=== PATIENT | female | born 1930 | race Caucasian/White ===

== ENCOUNTER 2016-10-31 08:15 | Inpatient (IN) | payer OTHER ==
[2016-10-31] VITALS (15 sets, daily range): BP systolic 105–135; BP diastolic 37–73; PULSE 62–141; TEMP 36.5–37; O2SAT 93–100; BMI 20.7
[~2016-10-31] VITALS: Ht 160 cm; Wt 53.3 kg
[~2016-10-31 08:15] MED LIST: AMLO-114 PO; ASPI1CHW12 PO; CLC100 PO; CYAN100048 PO; FRRG PO; INSUINJ4 SQ; LEVO112T2 PO; LSN40 PO; NVLGIPEN SC; TNR25 PO; ZNTT/150 PO
[2016-10-31] MEDS ORDERED: INSDGIPEN SC (08:36)
[2016-10-31] MEDS ORDERED: SODIUM CHLORIDE 0.9% 1000ML 2,000 ML IV ONE (08:45)
--- NOTE | 2016-10-31 08:59 | EMERGENCY ROOM VISIT NOTE ---
History Report prepared by Ermias: Anton Payne Under the Supervision of: Dr. Jace Duran M.D. First contact with patient: 08:33 Chief Complaint: ILLNESS Stated Complaint: LETHARGIC/ TIRED History of Present Illness The patient is an 86 year old female who presents to the Emergency Room with complaints of a worsening illness that started 4 days ago. Per the nursing staff , the patient's blood sugar is reading high. Per the patient's family, the patient started getting hoarse in her throat 4 days ago, which was accompanied with a lack of appetite, extreme thirst, lethargy, and chills. The patient does live alone. The patient has not been taking any insulin over the past few days because she has not been eating anything. She denies shortness of breath, fevers , chest pain, or nausea. Per the patient's family, the patient did have an episode of fecal incontinence yesterday. She is now using a Depend underwear. Source of History: patient, family, nursing staff Onset: 4 days ago Position: other (global - illness) Timing: worsening Associated Symptoms: + chills, + fatigue, No SOB, No chest pain, No nausea Note: Associated symptoms: Hoarse throat, lack of appetite, extreme thirst, an episode of fecal incontinence yesterday. Review of Systems All systems have been listed, reviewed, and are negative other than those previously mentioned. Please see Additional Medical History Sheet. Past Medical & Surgical Medical Problems: (1) Diabetes (2) HTN (hypertension) (3) Macular degeneration Family History Diabetes mellitus Hypertension Social History Smoking Status: Unknown if Ever Smoked Alcohol Use: none Drug Use: none Occupation Status: retired Current/Historical Medications Scheduled Amlodipine (Norvasc), 10 MG PO DAILY Aspirin (Aspirin 81 Low Dose), 81 MG PO DAILY Atenolol (Atenolol), 25 MG PO BID Cholecalciferol (Vitamin D-3), 1,000 UNITS PO DAILY Cranberry (Vaccinium Macrocarp (Cranberry), 500 MG PO DAILY Cyanocobalamin (Vitamin B-12), 1,000 MCG PO DAILY Ferrous Gluconate (Ferrous Gluconate), 324 MG PO BIDM Insulin Aspart (Novolog Flexpen), 4-6 UNITS SC TIDM Insulin Glargine (Lantus Solostar), 7-8 SC QPM Levothyroxine Sodium (Levothyroxine Sodium), 1 TAB PO DAILY Lisinopril (Lisinopril), 40 MG PO DAILY Multiple Vitamins W/ Minerals (Preservision Areds 2), 1 CAP PO DAILY Ranitidine (Zantac), 150 MG PO BID Allergies Coded Allergies: No Known Allergies (Unverified , 10/31/16) Physical Exam Vital Signs Date Time Temp Pulse Resp B/P Pulse Ox O2 Delivery O2 Flow Rate FiO2 10/31/16 11:15 72 28 87/49 99 Nasal Cannula 2.0 10/31/16 11:15 69 10/31/16 11:05 74 24 108/35 98 Room Air 10/31/16 10:59 71 18 91/40 98 Room Air 10/31/16 10:49 72 24 84/35 99 Nasal Cannula 2.0 10/31/16 10:41 75 24 104/40 99 Nasal Cannula 2.0 10/31/16 10:39 97 Nasal Cannula 2.0 10/31/16 10:37 78 24 116/50 99 Nasal Cannula 2.0 10/31/16 10:30 93 Room Air 10/31/16 10:20 73 24 123/53 99 Room Air 10/31/16 09:59 71 18 137/69 99 Room Air 10/31/16 09:31 70 20 132/67 98 Room Air 10/31/16 08:47 68 20 121/63 100 Room Air 10/31/16 08:23 99 Room Air 10/31/16 08:22 36.9 89 20 142/64 99 Room Air 10/31/16 08:19 66 Physical Exam GENERAL: Patient awake, alert, oriented x 3. Patient follows commands. Patient does not appear toxic. Patient is adequately hydrated and well- nourished. SKIN: No erythema, pallor, cyanosis or rash HEENT: Normal head, pupils equal, reactive to light and accommodation. Ears normal. Oral cavity and posterior pharynx appear normal. Mucous membranes dry. Neck: Without adenopathy, no neck vein distention. LUNGS: Clear to auscultation. No wheezes, no rales, no rhonchi. HEART: No murmurs. No gallops. No rubs ABDOMEN: No masses, no rebound, no hepatomegaly or splenomegaly. EXTREMITIES: No signs of trauma. No pedal or pretibial edema. No calf or thigh tenderness. NEUROLOGIC: Cranial nerves II-XII within normal limits. No gross motor sensory function deficits. Medical Decision & Procedures ER Provider Diagnostic Interpretation: X ray results are stated below per my interpretation and the radiologist's interpretation. CHEST ONE VIEW PORTABLE HISTORY: Lethargic. DKA COMPARISON: Chest 06/11/2015. FINDINGS: The lungs are clear. Cardiac silhouette is top normal in size. No pleural effusions. No pneumothorax. IMPRESSION: No significant change compared to the prior study. No acute process. Electronically signed by: Hardeep Ortez M.D. 10/31/2016 9:11 AM Dictated Date/Time: 10/31/2016 9:09 AM Laboratory Results 10/31/16 08:40 Red Blood Count 4.43, Mean Corpuscular Volume 91.2, Mean Corpuscular Hemoglobin 30.5, Mean Corpuscular Hemoglobin Concent 33.4, Mean Platelet Volume 10.7, Neutrophils (%) (Auto) 89.3, Lymphocytes (%) (Auto) 6.7, Monocytes (%) (Auto) 3.7, Eosinophils (%) (Auto) 0.0, Basophils (%) (Auto) 0.0, Neutrophils # (Auto) 10.73, Lymphocytes # (Auto) 0.81, Monocytes # (Auto) 0.45, Eosinophils # (Auto) 0.00, Basophils # (Auto) 0.00 Test 10/31/16 08:40 10/31/16 08:51 10/31/16 09:22 10/31/16 09:26 White Blood Count 12.03 K/uL (4.8-10.8) Red Blood Count 4.43 M/uL (4.2-5.4) Hemoglobin 13.5 g/dL (12.0-16.0) Hematocrit 40.4 % (37-47) Mean Corpuscular Volume 91.2 fL (80-100) Mean Corpuscular Hemoglobin 30.5 pg (25-34) Mean Corpuscular Hemoglobin Concent 33.4 g/dl (32-36) Platelet Count 235 K/uL (130-400) Mean Platelet Volume 10.7 fL (7.4-10.4) Neutrophils (%) (Auto) 89.3 % Lymphocytes (%) (Auto) 6.7 % Monocytes (%) (Auto) 3.7 % Eosinophils (%) (Auto) 0.0 % Basophils (%) (Auto) 0.0 % Neutrophils # (Auto) 10.73 K/uL (1.4-6.5) Lymphocytes # (Auto) 0.81 K/uL (1.2-3.4) Monocytes # (Auto) 0.45 K/uL (0.11-0.59) Eosinophils # (Auto) 0.00 K/uL (0-0.5) Basophils # (Auto) 0.00 K/uL (0-0.2) RDW Standard Deviation 45.6 fL (36.4-46.3) RDW Coefficient of Variation 13.7 % (11.5-14.5) Immature Granulocyte % (Auto) 0.3 % Immature Granulocyte # (Auto) 0.04 K/uL (0.00-0.02) Anisocytosis PRESENT Echinocytes 1+ Total Bilirubin 0.9 mg/dl (0.2-1) Aspartate Amino Transf (AST/SGOT) 30 U/L (15-37) Alanine Aminotransferase (ALT/SGPT) 25 U/L (12-78) Alkaline Phosphatase 133 U/L (45-117) Total Protein 7.9 gm/dl (6.4-8.2) Albumin 3.8 gm/dl (3.4-5.0) Globulin 4.1 gm/dl (2.5-4.0) Albumin/Globulin Ratio 0.9 (0.9-2) Prothrombin Time 10.1 SECONDS (9.0-12.0) Prothromb Time International Ratio 0.9 (0.9-1.1) Activated Partial Thromboplast Time 27.8 SECONDS (21.0-31.0) Partial Thromboplastin Ratio 1.1 Bedside Lactic Acid Venous 3.26 mmol/L (0.90-1.70) Urine Color YELLOW Urine Appearance CLEAR (CLEAR) Urine pH 5.0 (4.5-7.5) Urine Specific Duarte 1.019 (1.000-1.030) Urine Protein NEG (NEG) Urine Glucose (UA) 3+ (NEG) Urine Ketones 4+ (NEG) Urine Occult Blood NEG (NEG) Urine Nitrite NEG (NEG) Urine Bilirubin NEG (NEG) Urine Urobilinogen NEG (NEG) Urine Leukocyte Esterase NEG (NEG) Test 10/31/16 10:25 10/31/16 10:31 10/31/16 10:39 Arterial Blood pH 7.14 (7.35-7.45) Arterial Blood Partial Pressure CO2 12 mmHg (35-46) Arterial Blood Partial Pressure O2 161 mm/Hg (80-95) Arterial Blood HCO3 4 mmol/L (19-24) Arterial Blood Oxygen Saturation 98.9 % (90-95) Arterial Blood Base Excess -22.6 mEq/L (-9-1.8) Arterial Blood Gas Delivery RA Fermín Test POS (POS) Bedside Glucose > 600 mg/dl (70-90) Bedside Troponin I 0.000 ng/ml (0-0.045) Laboratory results as stated above per my review. Medications Administered Medications (Trade) Dose Ordered Sig/Maryann Route Start Time Stop Time Status Last Admin Dose Admin Sodium Chloride (Nss 1000ml) 2,000 ml @ 1,000 mls/hr Q2H ONCE IV 10/31/16 08:45 10/31/16 10:44 DC 10/31/16 08:46 1,000 MLS/HR Insulin Human Regular (novoLIN-R U-100 PER UNIT) 10 units NOW STAT IV 10/31/16 09:32 10/31/16 09:33 DC 10/31/16 09:54 10 UNITS Nitroglycerin (Nitrostat Tab) 0.4 mg Q5M PRN SL 10/31/16 10:45 10/31/16 11:44 DC 10/31/16 10:51 0.4 MG Nitroglycerin 0.4 mg 0.4 mg STK-MED ONCE .ROUTE 10/31/16 10:32 10/31/16 10:34 DC 10/31/16 10:36 0.4 MG Sodium Chloride (Nss 1000ml) 1,000 ml @ 150 mls/hr Q6H40M IV 10/31/16 11:04 10/31/16 14:13 DC 10/31/16 12:00 150 MLS/HR ECG Indication: weakness Rate (beats per minute): 65 Rhythm: normal sinus (with sinus arrhythmia) Findings: other (nonspecific-ST abnormality, normal axis) ED Course 0835: Past medical records reviewed. The patient was evaluated in room A2. A complete history and physical examination was performed. 0845: Ordered NSS 2000 ml @ 1000 mls/hr IV. 0932: Ordered Novolin-R U-100 PER UNIT 10 units IV. 1015: I reevaluated the patient. An EKG was done because of increased chest pain. There are increased ST abnormalities in the anterior, lateral, and inferior leads. The troponin is pending. The patient verbally expressed understanding and agreement of the treatment plan. The patient will be evaluated for further treatment. 1040: I discussed the patient with Dr. Alexandra louist - he will evaluate the patient for further treatment. 1045: Ordered Nitrostat Tab 0.4 mg SL PRN. 1049: I reevaluated the patient. She has been moved to room A1. 1130: I discussed the patient with Dr. Olvin louist - we discussed the clinical findings and lab results, including blood gas. 1153: I reevaluated the patient and she is breathing and feeling better. She looks slightly better. Medical Decision Nurses notes reviewed. Medical history sheet reviewed. Differential diagnosis includes but is not limited to: diabetes out of control, DKA, hyperosmolar ketosis, infection including pneumonia, UTI, and viral infections. The patient arrives here feeling very weak. Initial blood sugar was high. The patient was started on fluids and insulin. During her stay she became more short of breath and had some labored breathing. She complained of chest pain. She was given nitroglycerin which did help the pain. She has some nonspecific ST changes on her EKG. The patient was monitored and reevaluated multiple times. Blood work was really repeated and a blood gas was also obtained revealing significant acidosis consistent with DKA. Lactic acid was also elevated. I discussed care with the hospitalist. We also discussed placing her in the ICU. I discussed care with the patient and with multiple family members. Consults Time Called: 1030 Consulting Physician: Dr. Alexandra CORREA hospitalist Returned Call: 1040 I discussed the patient with Dr. Alexandra louist - he will evaluate the patient for further treatment. Additional Consults: Time Called: -- Consulted Physician: Dr. Olvin bynum Returned Call: 1130 Additional Comments: I discussed the patient with Dr. Olvin louist - we discussed the clinical findings and lab results, including blood gas. Impression Primary Impression: DKA (diabetic ketoacidoses) Critical Care I have personally spent greater than 45 minutes of critical care time in the direct management of this patient. This includes bedside care, interpretation of diagnostic studies, and testing, discussion with consultants, patient, and family members, and other required patient management activities. This 45 minutes is in excess of all separately billable procedures. Scribe Attestation The scribe's documentation has been prepared under my direction and personally reviewed by me in its entirety. I confirm that the note above accurately reflects all work, treatment, procedures, and medical decision making performed by me. Departure Information Dispostion Being Evaluated By Hospitalist Jose Pacheco M.D. (PCP) Patient Instructions My [facility]
[2016-10-31 09:08] LABS: HEMATOCRIT 40.4 % (37-47); MEAN CELL VOLUME 91.2 fL (80-100); MEAN CORPUSCULAR HEMOGLOBIN 30.5 pg (25-34); MEAN CORPUSCULAR HGB CONC 33.4 g/dl (32-36); MEAN PLATELET VOLUME 10.7 fL (7.4-10.4); PLATELET COUNT 235 K/uL (130-400); RED BLOOD COUNT 4.43 M/uL (4.2-5.4); WHITE BLOOD COUNT 12.03 K/uL (4.8-10.8)
--- NOTE | 2016-10-31 09:12 | DIAGNOSTIC IMAGING REPORT ---
CHEST ONE VIEW PORTABLE HISTORY: Lethargic. DKA COMPARISON: Chest 06/11/2015. FINDINGS: The lungs are clear. Cardiac silhouette is top normal in size. No pleural effusions. No pneumothorax. IMPRESSION: No significant change compared to the prior study. No acute process. Electronically signed by: Hardeep Ortez M.D. 10/31/2016 9:11 AM Dictated Date/Time: 10/31/2016 9:09 AM
[2016-10-31 09:31] LABS: ALB/GLOB RATIO 0.9 (0.9-2); BUN/CREATININE RATIO 28.6 (10-20); CALCIUM 9.2 mg/dl (8.5-10.1); CREATININE 1.6 mg/dl (0.60-1.20); POTASSIUM 5.5 mmol/L (3.5-5.1)
[2016-10-31] MEDS ORDERED: NovoLIN-R INSULIN PER UNIT CHARGE IV STA (09:32)
[2016-10-31 09:39] LABS: ANISOCYTOSIS PRESENT; COMPLETE YES; ECHINOCYTES 1+; IG% 0.3 %; LYMPH % 6.7 %; LYMPH ABS # 0.81 K/uL (1.2-3.4); MONO % 3.7 %; NEUT % 89.3 %
[2016-10-31 10:31] LABS: BETA-HYDROXYBUTYRATE 117.1 mg/dL (0.2-2.81)
[2016-10-31] MEDS ORDERED: NITROGLYCERIN 0.4 MG SL PER TAB CHARGE ONE (10:32)
[2016-10-31 10:38] LABS: ARTERIAL BLD GAS O2 SATURATION 98.9 % (90-95); ARTERIAL BLOOD GAS BASE EXCESS -22.6 mEq/L (-9-1.8); ARTERIAL BLOOD GAS HCO3 4 mmol/L (19-24); ARTERIAL BLOOD GAS PO2 161 mm/Hg (80-95)
[2016-10-31 10:45] LABS: ARTERIAL BLOOD GAS pH 7.14 (7.35-7.45)
[2016-10-31] MEDS ORDERED: NITROGLYCERIN 0.4 MG SL PER TAB CHARGE SL PRN ×2 (10:45→11:30)
[2016-10-31 10:47] LABS: ALLEN TEST POS (POS); O2 ADMINISTRATION RA
[2016-10-31 10:50] LABS: URINE APPEARANCE CLEAR (CLEAR); URINE BILIRUBIN NEG (NEG); URINE COLOR YELLOW; URINE NITRITE NEG (NEG); URINE SPECIFIC GRAVITY 1.019 (1.000-1.030); UROBILINOGEN NEG (NEG); ZZURINE CULT IF INDIC CATH NO
[2016-10-31] MEDS ORDERED: INSULIN IV INFUSION PROTOCOL STA (11:04)
[2016-10-31] MEDS ORDERED: SODIUM CHLORIDE 0.9% 1000ML 1,000 ML IV SCH (11:04)
[2016-10-31] MEDS ORDERED: PENDING NSS+20mEq KCL IVF SCH (11:15)
[2016-10-31] MEDS ORDERED: METOPROLOL TARTRATE 1 MG/ML VIAL IV PRN (11:15)
[2016-10-31] MEDS ORDERED: MODERATE STRESS LEVEL ONE (11:15)
[2016-10-31] MEDS ORDERED: PHARMACY GLYCEMIC MGMT CONSULT PRN (11:15)
[2016-10-31] MEDS ORDERED: DKA GOAL RANGE 150-250 mg/dl 1 EA ONE (11:15)
[2016-10-31 11:30] LABS: MANUAL MICROSCOPIC REQUIRED? NO; REVIEW REQ? NO
[2016-10-31] MEDS ORDERED: POLYETHYLENE (MIRALAX) 17 GM PACK PO PRN (11:30)
[2016-10-31] MEDS ORDERED: ACETAMINOPHEN 325 MG TAB PO PRN (11:30)
[2016-10-31] MEDS ORDERED: ALUMINUM/MAGNESIUM/SIMETH (MAALOX MAX) 30 ML UDC PO PRN (11:30)
[2016-10-31] MEDS ORDERED: MAGNESIUM HYDROXIDE SUSP 30 ML UDC PO PRN (11:30)
[2016-10-31] MEDS ORDERED: ONDANSETRON INJ 2 MG/ML 2 ML VIAL IV PRN (11:30)
[2016-10-31] MEDS ORDERED: GLUCOSE 10 TABS/TUBE PO PRN (11:45)
[2016-10-31] MEDS ORDERED: GLUCAGON FOR INJ 1 MG VIAL SQ PRN (11:45)
[2016-10-31] MEDS ORDERED: GLUCOSE 40% GEL 15 GM TUBE PO PRN (11:45)
[2016-10-31] MEDS ORDERED: DEXTROSE 50% 50 ML SYR IV PRN (11:45)
[2016-10-31] MEDS ORDERED: INSULIN HUMAN REGULAR IV BOLUS 1.5 UNIT in SYRINGE 0 ML IV SCH (11:45)
--- NOTE | 2016-10-31 11:54 | History and Physical ---
History & Physical Date & Time of Service: Oct 31, 2016 at 11:26 Chief Complaint: Lethargic/ Tired Primary Care Physician: Jose Burks M.D. History of Present Illness Source: patient, family Patient is a pleasant 86 y/o female, with PMHx of T2DM, HTN, and hypothyroidism , who presented with DKA in ED secondary to acute illness x4 days with decreased appetite and no insulin. Per family, patient started to get sore throat 4 days again, with decreased appetite, lethargy, and chills. The patient has not been taking her insulin over the last couple of days because she has not been eating. Patient had chest pain while in ED; she was given nitro in the ED with improvement. Currently denies any CP. +SOB- on 2L O2 currently. Patient denies any fever, sweats, lightheadedness, dizziness, vision changes, palpitations, edema, wheezing, cough, abdominal pain, nausea, vomiting, diarrhea , urinary symptoms, melena, numbness/tingling, muscle/joint pain, anxiety/ depression, active bleeding, or new skin discoloration/changes. Past Medical/Surgical History Medical Problems: 1. T2DM 2. HTN 3. Hypothyroidism 4. CKD Family History Diabetes mellitus Hypertension Social History Smoking Status: Unknown if Ever Smoked Drug Use: none Occupational Status: retired Allergies Coded Allergies: No Known Allergies (Unverified , 10/31/16) Home Medications Scheduled Amlodipine (Norvasc), 10 MG PO DAILY Aspirin (Aspirin 81 Low Dose), 81 MG PO DAILY Atenolol (Atenolol), 25 MG PO BID Cholecalciferol (Vitamin D-3), 1,000 UNITS PO DAILY Cranberry (Vaccinium Macrocarp (Cranberry), 500 MG PO DAILY Cyanocobalamin (Vitamin B-12), 1,000 MCG PO DAILY Ferrous Gluconate (Ferrous Gluconate), 324 MG PO BIDM Insulin Aspart (Novolog Flexpen), 4-6 UNITS SC TIDM Insulin Glargine (Lantus Solostar), 7-8 SC QPM Levothyroxine Sodium (Levothyroxine Sodium), 1 TAB PO DAILY Lisinopril (Lisinopril), 40 MG PO DAILY Multiple Vitamins W/ Minerals (Preservision Areds 2), 1 CAP PO DAILY Ranitidine (Zantac), 150 MG PO BID Physical Exam Vital Signs Date Time Temp Pulse Resp B/P Pulse Ox O2 Delivery O2 Flow Rate FiO2 10/31/16 11:15 72 28 87/49 99 Nasal Cannula 2.0 10/31/16 11:05 74 24 108/35 98 Room Air 10/31/16 10:59 71 18 91/40 98 Room Air 10/31/16 10:49 72 24 84/35 99 Nasal Cannula 2.0 10/31/16 10:41 75 24 104/40 99 Nasal Cannula 2.0 10/31/16 10:39 97 Nasal Cannula 2.0 10/31/16 10:37 78 24 116/50 99 Nasal Cannula 2.0 10/31/16 10:30 93 Room Air 10/31/16 10:20 73 24 123/53 99 Room Air 10/31/16 09:59 71 18 137/69 99 Room Air 10/31/16 09:31 70 20 132/67 98 Room Air 10/31/16 08:47 68 20 121/63 100 Room Air 10/31/16 08:23 99 Room Air 10/31/16 08:22 36.9 89 20 142/64 99 Room Air 10/31/16 08:19 66 General Appearance: + mild distress Head: normocephalic, atraumatic Eyes: normal inspection, PERRL ENT: hearing grossly normal Neck: supple Respiratory/Chest: lungs clear, + pertinent finding (tachypnic ) Cardiovascular: regular rate, rhythm Abdomen/GI: normal bowel sounds, non tender, soft Extremities/Musculoskelatal: no calf tenderness, no pedal edema Neurologic/Psych: alert, normal mood/affect Skin: normal color, warm/dry, no rash Diagnostics Laboratory Results Results Past 24 Hours Test 10/31/16 08:30 10/31/16 08:32 10/31/16 08:40 10/31/16 09:22 Range/Units Bedside Glucose > 600 > 600 70-90 mg/dl White Blood Count 12.03 4.8-10.8 K/uL Red Blood Count 4.43 4.2-5.4 M/uL Hemoglobin 13.5 12.0-16.0 g/dL Hematocrit 40.4 37-47 % Mean Corpuscular Volume 91.2 80-100 fL Mean Corpuscular Hemoglobin 30.5 25-34 pg Mean Corpuscular Hemoglobin Concent 33.4 32-36 g/dl Platelet Count 235 130-400 K/uL Mean Platelet Volume 10.7 7.4-10.4 fL Neutrophils (%) (Auto) 89.3 % Lymphocytes (%) (Auto) 6.7 % Monocytes (%) (Auto) 3.7 % Eosinophils (%) (Auto) 0.0 % Basophils (%) (Auto) 0.0 % Neutrophils # (Auto) 10.73 1.4-6.5 K/uL Lymphocytes # (Auto) 0.81 1.2-3.4 K/uL Monocytes # (Auto) 0.45 0.11-0.59 K/uL Eosinophils # (Auto) 0.00 0-0.5 K/uL Basophils # (Auto) 0.00 0-0.2 K/uL RDW Standard Deviation 45.6 36.4-46.3 fL RDW Coefficient of Variation 13.7 11.5-14.5 % Immature Granulocyte % (Auto) 0.3 % Immature Granulocyte # (Auto) 0.04 0.00-0.02 K/uL Anisocytosis PRESENT Echinocytes 1+ Sodium Level 125 136-145 mmol/L Potassium Level 5.5 3.5-5.1 mmol/L Chloride Level 88 98-107 mmol/L Carbon Dioxide Level 7 21-32 mmol/L Anion Gap 30.0 3-11 mmol/L Blood Urea Nitrogen 46 7-18 mg/dl Creatinine 1.60 0.60-1.20 mg/dl Est Creatinine Clear Calc Drug Dose 20.9 ml/min Estimated GFR () 33.5 Estimated GFR (Non- 28.9 BUN/Creatinine Ratio 28.6 10-20 Random Glucose 774 70-99 mg/dl Calcium Level 9.2 8.5-10.1 mg/dl Total Bilirubin 0.9 0.2-1 mg/dl Aspartate Amino Transf (AST/SGOT) 30 15-37 U/L Alanine Aminotransferase (ALT/SGPT) 25 12-78 U/L Alkaline Phosphatase 133 45-117 U/L Total Protein 7.9 6.4-8.2 gm/dl Albumin 3.8 3.4-5.0 gm/dl Globulin 4.1 2.5-4.0 gm/dl Albumin/Globulin Ratio 0.9 0.9-2 Beta-Hydroxybutyric Acid 117.10 0.2-2.81 mg/dL Bedside Lactic Acid Venous 3.26 0.90-1.70 mmol/L Test 10/31/16 09:26 10/31/16 10:25 10/31/16 10:31 10/31/16 10:39 Range/Units Arterial Blood pH 7.14 7.35-7.45 Arterial Blood Partial Pressure CO2 12 35-46 mmHg Arterial Blood Partial Pressure O2 161 80-95 mm/Hg Arterial Blood HCO3 4 19-24 mmol/L Arterial Blood Oxygen Saturation 98.9 90-95 % Arterial Blood Base Excess -22.6 -9-1.8 mEq/L Arterial Blood Gas Delivery RA Fermín Test POS POS Bedside Glucose > 600 70-90 mg/dl Bedside Troponin I 0.000 0-0.045 ng/ml Test 10/31/16 10:40 Range/Units Random Glucose 704 70-99 mg/dl Microbiology Results 10/31/16 Blood Culture, Received Pending 10/31/16 Blood Culture, Received Pending Diagnostic Radiology CHEST ONE VIEW PORTABLE HISTORY: Lethargic. DKA COMPARISON: Chest 06/11/2015. FINDINGS: The lungs are clear. Cardiac silhouette is top normal in size. No pleural effusions. No pneumothorax. IMPRESSION: No significant change compared to the prior study. No acute process. Electronically signed by: Hardeep Ortez M.D. 10/31/2016 9:11 AM Dictated Date/Time: 10/31/2016 9:09 AM The status of this report is Signed. Draft = Not yet reviewed or approved by Radiologist. Signed = Reviewed and approved by Radiologist. EKG DEVON NOYOLA ID:[id number] 31-OCT-2016 08:27:59 [facility] Sinus rhythm with marked sinus arrhythmia Nonspecific ST and T wave abnormality Abnormal ECG When compared with ECG of 11-JUN-2015 09:22, Inverted T waves have replaced nonspecific T wave abnormality in Inferior leads Nonspecific T wave abnormality, worse in Lateral leads 25mm/s 10mm/mV 150Hz 8.0 SP2 12SL 241 BRIGID: 0 Referred by: Referred Self Unconfirmed Vent. rate 65 BPM HI interval 184 ms QRS duration 92 ms QT/QTc 440/457 ms P-R-T axes 54 -17 -76 1930 (86 yr) Female 1lb Room:2 Loc:15 Floor Helper:KENDALL DENIS Test ind: Impression Assessment and Plan 86 y/o female, with PMHx of T2DM, HTN, CKD, and hypothyroidism, who presented with DKA in ED secondary to acute illness x4 days with decreased appetite and no insulin. DKA/T2DM: - Admit ICU - DKA protocol - EKG with no specific ST changes; tend cardiac enzymes, check ECHO - Last ha1c Aug 2016, 11.7 Acute illness, likely viral- no signs of infection at this point: - U/A and blood cultures pending - CXR- no acute process - Check rapid flu - Follow CBC HTN: - Hold Lisinopril, Norvasc, and Atenolol due to hypotension - Added Lopressor 5 mg q6 hrs for SBP >170 or DBP >100 LISSETT/CKD, ?stage III: - Treat with IVF - Hold nephrotic agents - Follow PRP GERD: Continue Zantac 150 mg PO BID Hypothyroidism: Continue Synthroid 125 mcg PO daily Iron deficiency: Continue Ferrous sulfate 324 mg PO BID GI Prophylaxis: Maalox PRN, IV Zofran PRN, Colace and/or Milk of Mag PRN DVT prophylaxis: Heparin 5000 units SQ q12 hrs Code Status: LEVEL I, FULL Dispo: From home, lives alone Level of Care Critical Care Resuscitation Status FULL RESUSCITATION VTE Prophylaxis VTE Risk Assessment Done? Y/N: Yes Risk Level: Moderate Given or contraindicated: Unfractionated heparin SQ, T.E.D. Stockings, SCD's
[2016-10-31] MEDS: INSULIN REGULAR 250 UNITS in SODIUM CHLORIDE 0.9% 250ML 250 ML IV SCH (11:59)
[2016-10-31] MEDS ORDERED: INSULIN ASPART 100 UNITS/ML 3 ML PEN SC SCH (12:28)
[2016-10-31] MEDS: INSULIN ASPART 100 UNITS/ML 3 ML PEN SC SCH ×3 (12:28→21:00)
[2016-10-31 12:44] LABS: POTASSIUM 4.5 mmol/L (3.5-5.1)
[2016-10-31 12:54] LABS: BUN/CREATININE RATIO 28.8 (10-20); CALCIUM 8.3 mg/dl (8.5-10.1); CREATININE 1.6 mg/dl (0.60-1.20); MAGNESIUM 2.6 mg/dl (1.8-2.4); POTASSIUM 4.8 mmol/L (3.5-5.1)
[2016-10-31] MEDS: PENDING D5NS+20mEq KCL IVF SCH ×5 (13:15→19:15)
[2016-10-31 13:29] LABS: INR 0.9 (0.9-1.1); PARTIAL THROMBOPLASTIN RATIO 1.1; PROTHROMBIN TIME (PATIENT) 10.1 SECONDS (9.0-12.0)
[2016-10-31] MEDS ORDERED: METOPROLOL TARTRATE 1 MG/ML VIAL IV ONE (13:30)
[2016-10-31 13:37] LABS: BETA-HYDROXYBUTYRATE 111.42 mg/dL (0.2-2.81)
[2016-10-31 13:48] LABS: BETA-HYDROXYBUTYRATE 106.33 mg/dL (0.2-2.81)
[2016-10-31] MEDS ORDERED: OSELTAMIVIR PHOSPHATE SUSP 30 MG/5 ML UDP PO ONE (14:00)
[2016-10-31] MEDS ORDERED: NSS + 20MEQ KCL 1000ML 1,000 ML IV SCH (14:15)
[2016-10-31 14:28] LABS: BETA-HYDROXYBUTYRATE 95.89 mg/dL (0.2-2.81)
--- NOTE | 2016-10-31 14:37 | Pharmacy Progress Note ---
Glycemic Control Intl Consult Date of Service Oct 31, 2016. Scope Glycemic Pharmacist consulted by YINKA Castorena on 10/31/16 for glycemic control and to write orders per [facility] inpatient glycemic control protocol. Objective Weight (Kilograms): 53.000 Accuchecks BSG (last 24hrs): Test 10/31/16 08:30 10/31/16 08:32 10/31/16 08:40 10/31/16 10:31 Bedside Glucose > 600 mg/dl (70-90) > 600 mg/dl (70-90) > 600 mg/dl (70-90) Random Glucose 774 mg/dl (70-99) Test 10/31/16 10:40 10/31/16 12:15 10/31/16 13:25 Random Glucose 704 mg/dl (70-99) 667 mg/dl (70-99) 603 mg/dl (70-99) Laboratory Data (last 24hrs) Test 10/31/16 08:40 10/31/16 10:40 10/31/16 12:15 Anion Gap 30.0 mmol/L 27.0 mmol/L BUN/Creatinine Ratio 28.6 28.8 Blood Urea Nitrogen 46 mg/dl 46 mg/dl Creatinine 1.60 mg/dl 1.60 mg/dl Potassium Level 5.5 mmol/L 4.5 mmol/L 4.8 mmol/L Sodium Level 125 mmol/L 132 mmol/L White Blood Count 12.03 K/uL Red Blood Count 4.43 M/uL Hemoglobin 13.5 g/dL Hematocrit 40.4 % Mean Corpuscular Volume 91.2 fL Mean Corpuscular Hemoglobin 30.5 pg Mean Corpuscular Hemoglobin Concent 33.4 g/dl Platelet Count 235 K/uL Mean Platelet Volume 10.7 fL Neutrophils (%) (Auto) 89.3 % Lymphocytes (%) (Auto) 6.7 % Monocytes (%) (Auto) 3.7 % Eosinophils (%) (Auto) 0.0 % Basophils (%) (Auto) 0.0 % Neutrophils # (Auto) 10.73 K/uL Lymphocytes # (Auto) 0.81 K/uL Monocytes # (Auto) 0.45 K/uL Eosinophils # (Auto) 0.00 K/uL Basophils # (Auto) 0.00 K/uL Recent Pertinent Medications Outpatient Anti-diabetic Regimen: * Lantus 7-8 units SQ qPM * Novolog 4-6 units SQ TIDM * A1c = 11.7 % (08/22/16) Risk Factors for Insulin Resistance: * Infection: Tamiflu for positive flu swab * IVF: NSS @ 20mEq KCl @ 150mL/hr * Diet: Type 2 diabetic/AHA diet Assessment & Plan ASSESSMENT: * ADA & AACE recommend a goal blood sugar range 140-180 mg/dl for the majority of critically ill & non-critically ill patients. However, more stringent targets may be selected in individual cases. 10/31/16 * Patient is an 86yo diabetic female who had not taken her insulin doses for ~4 days d/t illness with decreased appetite. * Patient admitted today with significant DKA: * BSG 774 mg/dL, AG 30 mmol/L, CO2 7 mmol/L, BHA 117 mg/dL, VBG pH 7.11, + 4 ketones in the urine * Patient was initiated on an IV insulin infusion in the ED, which will need to continue until DKA has resolved. * Pharmacy will continue to follow and aid in the transition to SQ insulin when appropriate. PLAN FOR INPATIENT GLYCEMIC CONTROL: * Starting IV insulin infusion per moderate stress protocol * Goal Range 150 - 250 mg/dl * In the critical care setting, continuous IV insulin infusion has been shown to be the best method for achieving glycemic targets. * Please note that the plan above was derived based on current level of insulin resistance and hospital stress. These recommendations are appropriate for inpatient admission only. Plan of care upon discharge will need to be reassessed to avoid potential outpatient hypo/hyperglycemia. Thank you.
[2016-10-31] MEDS ORDERED: PERFLUTREN LIPID MICROSPHERE (DEFINITY) IV ONE (14:39)
--- NOTE | 2016-10-31 14:47 | CRITICAL CARE CONSULTATION ---
DATE OF CONSULTATION: 10/31/2016 CHIEF COMPLAINT: Fatigue. HISTORY OF PRESENT ILLNESS: The patient is a very sweet 86-year-old woman with a history of diabetes mellitus type 2, having been on insulin for at least 10 years. She reports that about 4 days ago she started to become hoarse and have a poor appetite. She denies nausea, vomiting, diarrhea, abdominal pain. She was coughing a little bit, but not really coughing anything up. She stopped taking her insulin at that time because she said she was not really eating anything. She became more thirsty and fatigued. She had one episode of loose stool yesterday. She lives alone and has family to help care for her and they noted that she was drinking juice and taking a little bit of soup. She was also using some Mucinex because she felt congested. She presented to the Emergency Department today complaining of fatigue and her blood sugar was noted to be 700. She was given 2 liters of normal saline, 10 units of regular insulin and started on an insulin infusion. In the Emergency Department, she also had chest pain for which an EKG was performed and showed normal sinus rhythm with nonspecific ST-T wave changes. She denies having chest pain prior to arriving in the Emergency Department and she denies having chest pain now. She reports that she checks her blood sugar; however, her daughter believes this to be untrue. I asked her specifically whether or not she has difficulty and measuring her insulin or checking her blood sugars due to her macular degeneration. She admits that it can be difficult, but she thinks she manages. Her daughter believes otherwise. She also has a history of retinopathy. PAST MEDICAL HISTORY: Diabetes mellitus type 2 with retinopathy, macular degeneration, hypertension, hypothyroidism, prolapsed bladder. PAST SURGICAL HISTORY: She denies. OUTPATIENT MEDICATIONS: Amlodipine 10 mg daily, aspirin 162 mg daily, atenolol 25 mg b.i.d., vitamin D3 1000 units daily, cranberry 500 mg daily, vitamin B12 1000 mcg daily, ferrous gluconate 324 mg b.i.d., insulin sliding scale, Lantus 7-8 units subcutaneously q.p.m., levothyroxine 125 mcg daily, lisinopril 40 mg daily, multivitamins with minerals, PreserVision 1 capsule daily, ranitidine 150 mg p.o. b.i.d. SOCIAL HISTORY: She lives alone in an apartment. She smoked 1 pack of cigarettes per day for at least 20 years. She does not drink any alcohol. She is . FAMILY HISTORY: Noncontributory. REVIEW OF SYSTEMS: She denies any new visual changes, sore throat, neck pain, abdominal pain, lower extremity swelling, focal weakness, falls, numbness or tingling in her feet or hands, bruising. She has felt mildly short of breath. Additional review of systems is negative or noncontributory in a 12-point system other than what is presented in the history of present illness. PHYSICAL EXAMINATION: VITAL SIGNS: Temperature 36.9, heart rate 75-120, respiratory rate 18-28, blood pressure 112/44, oxygen saturation 100% on 2 liters nasal cannula. HEENT: Pupils are equally round and reactive to light. Oral mucosa is dry. She is edentulous. Posterior pharynx is not erythematous. No exudate. NECK: No adenopathy. Neck veins are flat. LUNGS: Clear to auscultation bilaterally. No rales, rhonchi or wheezes. HEART: Regular rate and rhythm. CHEST: Symmetric to expansion, nontender to palpation. ABDOMEN: Soft, nondistended, nontender with active bowel sounds. EXTREMITIES: Warm. No edema. NEUROLOGIC: She is awake, alert, oriented to person and place. Strength is 4+/5 in the upper and lower extremities. Sensation is grossly intact. LABORATORY DATA: White blood cell count 12.03, hemoglobin 13.5, hematocrit 40.4, platelets 235. Sodium 125, potassium 4.8, chloride 100, CO2 5, BUN 46, creatinine 1.6, blood sugar 667, magnesium 2.6, phosphorus 5.0, calcium 8.3. PH 7.14, pCO2 12, pO2 116, HCO3 4. Urinalysis 4+ ketones. Influenza positive for type B. MEDICATIONS: Tylenol, Maalox, aspirin, ferrous gluconate, heparin, insulin infusion, levothyroxine, milk of magnesia, Lopressor, Nitrostat, Zofran, Tamiflu, MiraLax, Zantac, normal saline 150 mL per hour. EKG was reviewed. Blood cultures pending. IMAGING: Chest x-ray shows no acute infiltrate. IMPRESSION: 1. Diabetic ketoacidosis. 2. Influenza B. 3. Tachycardia, resolved prior to giving her any Lopressor. There are no monitor strips presently. 4. Acute kidney injury secondary to hypovolemia. 5. History of hypertension. 6. History of hypothyroidism. 7. History of prolapsed bladder. PLAN: 1. Continue volume resuscitation. 2. Continue insulin infusion. 3. Change IV fluids to D5 half normal saline once blood sugar is at or below 250. Consider adding potassium to the fluids depending on what her potassium is at that time. 4. Tamiflu has been started. 5. Follow electrolytes carefully. 6. Consider echo and rule out myocardial infarction. 7. She will need diabetic teaching and perhaps some assistive devices to help her to see her glucometer and insulin better. 8. Provide DVT prophylaxis. 9. Continue H2 alisia for GI prophylaxis. I discussed the patient's care with both the patient and her daughter. Questions were answered. Thank you for asking me to see this nice lady. Critical care time 40 minutes.
[2016-10-31 17:03] LABS: BLOOD UREA NITROGEN 45 mg/dl (7-18); BUN/CREATININE RATIO 32.1 (10-20); CALCIUM 8.1 mg/dl (8.5-10.1); CARBON DIOXIDE 12 mmol/L (21-32); CHLORIDE 104 mmol/L (98-107); GLUCOSE 435 mg/dl (70-99); POTASSIUM 4.6 mmol/L (3.5-5.1); SODIUM 137 mmol/L (136-145)
[2016-10-31] MEDS: FERROUS GLUCONATE 324 MG TAB PO SCH (17:04)
[2016-10-31 17:37] LABS: BETA-HYDROXYBUTYRATE 66.49 mg/dL (0.2-2.81)
[2016-10-31] MEDS: METOPROLOL TARTRATE 1 MG/ML VIAL IV. SCH (18:37)
--- NOTE | 2016-10-31 19:15 | ECHOCARDIOGRAM REPORT ---
*NOTICE TO RECEIVING REPUBLICAN AGENCY This information is strictly Confidential and protected under [place] law. [place] law prohibits you from making any further disclosure of this information unless further disclosure is expressly permitted by the written consent of the person to whom it pertains or is authorized by law. A general authorization for the release of medical or other information is not sufficient for this purpose. Hospital accepts no responsibility if the information is made available to any other person, INCLUDING THE PATIENT. Interpretation Summary * Name: DEVON NOYOLA Study Date: 10/31/2016 02:49 PM BP: 115/47 mmHg * [facility] HR: 70 * : 1930 (M/d/yyy) Gender: Female Height: 63 in * Age: 86 yrs Ethnicity: [place] Weight: 116 lb * Ordering Physician: Keely Duval * Performed By: Ana Benavides * * Reason For Study: CHEST PAIN * BSA: 1.5 m2 * Hyperdynamic left ventricular systolic function. * Mild concentric left ventricular hypertrophy. * Left ventricular diastolic dysfunction. * Borderline left atrial dilatation. * Trace pulmonic, mitral, and tricuspid regurgitation. * -- Conclusions -- * Aortic valve sclerosis mild, without significant aortic valvular stenosis. Procedure Details * A complete two-dimensional transthoracic echocardiogram was performed (2D, M-mode, Doppler and color flow Doppler). * The study was technically difficult. * There were technical limitations due to patient'spoor positioning * A contrast injection of Definity was performed to improve assessment of LV function. * Contrast was injected into an intravenous site in the right arm. * One vial of Definity ultrasound contrast was diluted in normal saline to a total volume of 10 ml. A total of '2' ml of solution was administered during imaging. * Lot # [id number] of Definity utilized for procedure. * Expiration date 09/28. * The attending nurse who injected the contrast agent was ELOY BUSTAMANTE RN. Left Ventricle * The left ventricle is normal in size. * There is mild concentric left ventricular hypertrophy. * Ejection Fraction = >70 %. * The left ventricle is hyperdynamic. * Diastolic dysfunction, Grade II (pseudonormalization pattern). * No regional wall motion abnormalities noted. Right Ventricle * The right ventricle is normal in size and function. * The right ventricular systolic function is normal as assessed by tricuspid annular plane systolic excursion (TAPSE) (normal >1.5 cm). Atria * Borderline left atrial enlargement. * Right atrial size is normal. * No ASD detected; PFO is not assessed. Mitral Valve * There is mild mitral annular calcification. * There is no mitral valve stenosis. * There is trace mitral regurgitation. Tricuspid Valve * The tricuspid valve is not well visualized, but is grossly normal. * There is no tricuspid stenosis. * There is trace tricuspid regurgitation. Aortic Valve * The aortic valve is trileaflet. * The aortic valve opens well. * Aortic valve sclerosis mild, without significant aortic valvular stenosis. * Aortic stenosis is absent. * No aortic regurgitation is present. Pulmonic Valve * The pulmonic valve is not well visualized. * There is no pulmonic valvular stenosis. * Trace pulmonic valvular regurgitation. Great Vessels * The aortic root is normal size. Pericardium/Pleural * There is no pericardial effusion. Great Vessels * Normal inferior vena cava diameter and respiratory variation suggests normal central venous pressure. MMode 2D Measurements and Calculations IVSd 1.4 cm IVSs 2.2 cm LVIDd 4.0 cm LVIDs 2.4 cm LVPWd 1.3 cm LVPWs 1.6 cm IVS/LVPW 1.0 FS 39.4 % EDV(Teich) 68.4 ml ESV(Teich) 20.2 ml EF(Teich) 70.5 % EDV(cubed) 62.1 ml ESV(cubed) 13.8 ml EF(cubed) 77.7 % % IVS thick 59.9 % % LVPW thick 22.0 % LV mass(C)d 190.7 grams LV mass(C)dI 124.3 grams/m\S\2 LV mass(C)s 183.9 grams LV mass(C)sI 119.9 grams/m\S\2 SV(Teich) 48.2 ml SI(Teich) 31.4 ml/m\S\2 SV(cubed) 48.3 ml SI(cubed) 31.5 ml/m\S\2 Ao root diam 3.1 cm Ao root area 7.4 cm\S\2 ACS 1.4 cm LA dimension 3.9 cm asc Aorta Diam 3.9 cm LA/Ao 1.3 LVOT diam 1.9 cm LVOT area 2.9 cm\S\2 LVAd ap4 17.6 cm\S\2 LVLd ap4 6.1 cm EDV(MOD-sp4) 43.3 ml EDV(sp4-el) 43.6 ml LVAs ap4 8.8 cm\S\2 LVLs ap4 5.3 cm ESV(MOD-sp4) 12.2 ml ESV(sp4-el) 12.3 ml EF(MOD-sp4) 71.8 % EF(sp4-el) 71.7 % LVAd ap2 23.4 cm\S\2 LVLd ap2 7.0 cm EDV(MOD-sp2) 63.9 ml EDV(sp2-el) 66.1 ml LVAs ap2 11.8 cm\S\2 LVLs ap2 6.2 cm ESV(MOD-sp2) 18.4 ml ESV(sp2-el) 18.8 ml EF(MOD-sp2) 71.1 % EF(sp2-el) 71.5 % LVLd %diff 13.4 % EDV(MOD-bp) 56.1 ml LVLs %diff 14.7 % ESV(MOD-bp) 16.0 ml EF(MOD-bp) 71.4 % SV(MOD-sp4) 31.1 ml SI(MOD-sp4) 20.3 ml/m\S\2 SV(MOD-sp2) 45.4 ml SI(MOD-sp2) 29.6 ml/m\S\2 SV(MOD-bp) 40.1 ml SI(MOD-bp) 26.1 ml/m\S\2 SV(sp4-el) 31.2 ml SI(sp4-el) 20.3 ml/m\S\2 SV(sp2-el) 47.3 ml SI(sp2-el) 30.8 ml/m\S\2 Doppler Measurements and Calculations MV E max isabell 134.6 cm/sec MV A max isabell 112.6 cm/sec MV E/A 1.2 MV V2 max 169.1 cm/sec MV max PG 11.4 mmHg MV V2 mean 92.9 cm/sec MV mean PG 4.0 mmHg MV V2 VTI 44.5 cm MVA(VTI) 1.7 cm\S\2 MV dec time 0.22 sec Ao V2 max 148.9 cm/sec Ao max PG 8.9 mmHg Ao max PG (full) 5.0 mmHg SANDI(V,A) 1.9 cm\S\2 SANDI(V,D) 1.9 cm\S\2 LV V1 max PG 3.9 mmHg LV V1 mean PG 1.8 mmHg LV V1 max 98.9 cm/sec LV V1 mean 63.2 cm/sec LV V1 VTI 26.3 cm SV(LVOT) 76.7 ml SI(LVOT) 50.0 ml/m\S\2 PA V2 max 92.7 cm/sec PA max PG 3.4 mmHg PI end-d isabell 71.2 cm/sec TR max isabell 271.4 cm/sec
[2016-10-31] MEDS: D5NSS + 20MEQ KCL 1,000 ML IV SCH (20:30)
[2016-10-31] MEDS: RANITIDINE HCL 150 MG TAB PO SCH (21:20)
[2016-10-31] MEDS: HEPARIN SOD 5000 UNIT/0.5 ML CARP SQ SCH (21:20)
[2016-10-31 21:28] LABS: BUN/CREATININE RATIO 31.3 (10-20); CALCIUM 7.7 mg/dl (8.5-10.1); CREATININE 1.2 mg/dl (0.60-1.20); MAGNESIUM 2.3 mg/dl (1.8-2.4); POTASSIUM 4.2 mmol/L (3.5-5.1)
[2016-10-31 21:33] LABS: PHOSPHORUS 2.3 mg/dl (2.5-4.9)
[2016-10-31 23:35] LABS: BUN/CREATININE RATIO 32.4 (10-20); CREATININE 1.1 mg/dl (0.60-1.20); PHOSPHORUS 1.9 mg/dl (2.5-4.9); POTASSIUM 3.8 mmol/L (3.5-5.1)
[2016-11-01] VITALS (13 sets, daily range): BP systolic 121–173; BP diastolic 45–87; PULSE 65–92; TEMP 36.6–37; O2SAT 92–99; Ht 160 cm; Wt 53.3 kg
[2016-11-01] MEDS: METOPROLOL TARTRATE 1 MG/ML VIAL IV. SCH ×2 (00:34→06:27)
[2016-11-01] MEDS: D5NSS + 20MEQ KCL 1,000 ML IV SCH (03:21)
[2016-11-01 04:51] LABS: BUN/CREATININE RATIO 28.5 (10-20); CALCIUM 7.6 mg/dl (8.5-10.1); CREATININE 0.85 mg/dl (0.60-1.20); POTASSIUM 3.6 mmol/L (3.5-5.1)
[2016-11-01 05:02] LABS: PHOSPHORUS 1.3 mg/dl (2.5-4.9)
[2016-11-01] MEDS ORDERED: POTASSIUM PHOS 3 MMOL/1 ML INFUSION IV STA ×2 (05:11→16:36)
[2016-11-01 05:13] LABS: HEMATOCRIT 29.7 % (37-47); MEAN CELL VOLUME 86.1 fL (80-100); MEAN CORPUSCULAR HEMOGLOBIN 29.6 pg (25-34); MEAN CORPUSCULAR HGB CONC 34.3 g/dl (32-36); MEAN PLATELET VOLUME 9.9 fL (7.4-10.4); PLATELET COUNT 164 K/uL (130-400); RED BLOOD COUNT 3.45 M/uL (4.2-5.4); WHITE BLOOD COUNT 8.44 K/uL (4.8-10.8)
[2016-11-01] MEDS ORDERED: POTASSIUM PHOSPHATE INJ 30 MMOL in SODIUM CHLORIDE 0.9% 500ML 500 ML IV SCH ×2 (05:30→17:00)
[2016-11-01] MEDS: LEVOTHYROXINE 125 MCG TAB PO SCH (06:27)
[2016-11-01] MEDS: ASPIRIN 81 MG CHEW PO SCH (07:59)
[2016-11-01] MEDS: FERROUS GLUCONATE 324 MG TAB PO SCH ×2 (07:59→17:06)
[2016-11-01] MEDS: RANITIDINE HCL 150 MG TAB PO SCH ×2 (07:59→21:22)
[2016-11-01] MEDS: HEPARIN SOD 5000 UNIT/0.5 ML CARP SQ SCH ×2 (08:01→21:18)
[2016-11-01] MEDS ORDERED: D5W AND 1/2NSS + 20MEQ KCL 1,000 ML IV SCH (08:15)
[2016-11-01] MEDS: INSULIN ASPART 100 UNITS/ML 3 ML PEN SC SCH ×3 (08:38→21:19)
[2016-11-01 08:58] LABS: BUN/CREATININE RATIO 21.6 (10-20); CALCIUM 7.7 mg/dl (8.5-10.1); CREATININE 0.83 mg/dl (0.60-1.20); MAGNESIUM 1.8 mg/dl (1.8-2.4)
[2016-11-01 08:59] LABS: PHOSPHORUS 4.3 mg/dl (2.5-4.9); POTASSIUM 4.9 mmol/L (3.5-5.1)
[2016-11-01] MEDS ORDERED: OSELTAMIVIR PHOSPHATE SUSP 30 MG/5 ML UDP PO SCH (09:00)
[2016-11-01] MEDS ORDERED: INSULIN GLARGINE SOLOSTAR 100 UNITS/ML 3 ML PEN SC ONE (09:45)
[2016-11-01] MEDS ORDERED: INSULIN ASPART 100 UNITS/ML 3 ML PEN SC SCH (11:30)
[2016-11-01] MEDS: INSULIN REGULAR 250 UNITS in SODIUM CHLORIDE 0.9% 250ML 250 ML IV SCH (11:30)
--- NOTE | 2016-11-01 12:12 | Pharmacy Progress Note ---
Glycemic Control: Progress Nt Date of Service Nov 01, 2016. Scope Glycemic Pharmacist consulted by Isabell ESCOBAR on 10/31/16 for glycemic control and to write orders per [facility] inpatient glycemic control protocol. Objective Accuchecks BSG (last 24hrs): Test 10/31/16 12:15 10/31/16 13:25 10/31/16 15:03 10/31/16 16:05 Random Glucose 667 mg/dl (70-99) 603 mg/dl (70-99) Bedside Glucose 474 mg/dl (70-90) 428 mg/dl (70-90) Test 10/31/16 16:17 10/31/16 17:08 10/31/16 18:04 10/31/16 19:01 Random Glucose 435 mg/dl (70-99) Bedside Glucose 381 mg/dl (70-90) 330 mg/dl (70-90) 284 mg/dl (70-90) Test 10/31/16 20:06 10/31/16 20:48 10/31/16 21:00 10/31/16 22:03 Bedside Glucose 243 mg/dl (70-90) 226 mg/dl (70-90) 216 mg/dl (70-90) Random Glucose 226 mg/dl (70-99) Test 10/31/16 23:00 11/01/16 00:11 11/01/16 01:56 11/01/16 04:13 Random Glucose 200 mg/dl (70-99) Bedside Glucose 195 mg/dl (70-90) 164 mg/dl (70-90) 164 mg/dl (70-90) Test 11/01/16 04:16 11/01/16 06:08 11/01/16 07:17 11/01/16 08:13 Random Glucose 158 mg/dl (70-99) Bedside Glucose 145 mg/dl (70-90) 131 mg/dl (70-90) 196 mg/dl (70-90) Test 11/01/16 08:18 11/01/16 09:06 11/01/16 10:24 Random Glucose 194 mg/dl (70-99) Bedside Glucose 213 mg/dl (70-90) 258 mg/dl (70-90) Laboratory Data (last 24hrs) Test 10/31/16 12:15 10/31/16 16:17 10/31/16 20:48 10/31/16 23:00 Anion Gap 27.0 mmol/L 21.0 mmol/L 16.0 mmol/L 15.0 mmol/L BUN/Creatinine Ratio 28.8 32.1 31.3 32.4 Blood Urea Nitrogen 46 mg/dl 45 mg/dl 38 mg/dl 36 mg/dl Creatinine 1.60 mg/dl 1.40 mg/dl 1.20 mg/dl 1.10 mg/dl Potassium Level 4.8 mmol/L 4.6 mmol/L 4.2 mmol/L 3.8 mmol/L Sodium Level 132 mmol/L 137 mmol/L 139 mmol/L 142 mmol/L Test 11/01/16 04:16 11/01/16 08:18 Anion Gap 11.0 mmol/L 12.0 mmol/L BUN/Creatinine Ratio 28.5 21.6 Blood Urea Nitrogen 24 mg/dl 18 mg/dl Creatinine 0.85 mg/dl 0.83 mg/dl Potassium Level 3.6 mmol/L 4.9 mmol/L Sodium Level 143 mmol/L 142 mmol/L White Blood Count 8.44 K/uL HbA1c: 11.7% 08/22/16 Recent Pertinent Medications Outpatient Anti-diabetic Regimen: * Lantus 7-8 units Q PM * Novolog 4-6 units TID w/ meals * A1c = 11.7 % 08/22/16 The patient is currently receiving: * IV insulin infusion, goal range 150-250mg/dL Risk Factors for Insulin Resistance: * Infection: Influenza B; receiving Tamiflu * IVF: D5 1/2 NS + 20mEq KCl @100ccjr * Diet: ordered T2DM/AHA diet Assessment & Plan ASSESSMENT: 10/31/16 * Patient is an 86yo diabetic female who had not taken her insulin doses for ~4 days d/t illness with decreased appetite. * Patient admitted today with significant DKA: * BSG 774 mg/dL, AG 30 mmol/L, CO2 7 mmol/L, BHA 117 mg/dL, VBG pH 7.11, + 4 ketones in the urine * Patient was initiated on an IV insulin infusion in the ED, which will need to continue until DKA has resolved. * Pharmacy will continue to follow and aid in the transition to SQ insulin when appropriate. 11/01/16 * Insulin infusion continues this AM; AG acidosis resolved, however still somewhat acidotic (Bicarb 17-19) but greatly improved. BSGs in the 100's low 200 's this AM. * She was ordered a diet this AM and tolerate a small breakfast. * Patient meets criteria for transition off insulin drip. Will begin basal/ bolus SQ regimen based upon outpt insulin doses and weight. Insulin infusion data may be misleading due to short duration of infusion, glucotoxicity and insulin resistance seen in DKA. PLAN FOR INPATIENT GLYCEMIC CONTROL: * Basal insulin with LANTUS 10 units SQ x 1 this AM; then begin 5 units SQ BID - hold if BSG less than 120 * Discontinue the insulin drip 2 hrs after 1st dose Lantus given (d/c drip sooner due to frequent pump alarms this AM despite troubleshooting) * Correctional Insulin with NOVOLOG per scale ACHS and at 0200 to allow for additional coverage * Goal Range: Low 140 mg/dL - High 180 mg/dL * Correction Factor: 35 mg/dL/unit (to be used when insulin drip d/c'd) * Nutritional / Prandial insulin per carb ratio of 1 unit per 13 grams CHO consumed * Please note that the plan above was derived based on current level of insulin resistance and hospital stress. These recommendations are appropriate for inpatient admission only. Plan of care upon discharge will need to be reassessed to avoid potential outpatient hypo/hyperglycemia. Thank you.
--- NOTE | 2016-11-01 12:27 | CRITICAL CARE PROGRESS NOTE ---
DATE: 11/01/2016 HISTORY OF PRESENT ILLNESS: This is a pleasant 86-year-old woman admitted yesterday after feeling lousy at home for 4 days and not taking her insulin because she was not taking much p.o. She was brought in to the hospital for diabetic ketoacidosis and was found to have influenza B. She was started on Tamiflu yesterday as well as an insulin infusion. She has been coughing and notes some nasal congestion. There were no acute events overnight and her care was discussed in detail on multidisciplinary rounds today. She has no specific complaints, although she would like to eat a little bit more than she has been. She has not had a bowel movement. PHYSICAL EXAMINATION: VITAL SIGNS: Maximum temperature 37, heart rate 60-80, respiratory rate 21-26, blood pressure 120-140/40s-70s, and oxygen saturation 95% on 2 liters nasal cannula. 24-hour fluid balance is positive 3.1 liters. GENERAL: She is awake, alert and in no distress. LUNGS: Have decreased breath sounds throughout with moderate inspiratory effort. HEART: Regular rate and rhythm. ABDOMEN: Soft, nondistended, and nontender. Active bowel sounds. EXTREMITIES: Warm. No edema. LABORATORY DATA: White blood cell count 8.44, hemoglobin 10.2, hematocrit 29.7, and platelets 164. Sodium 142, potassium 4.9, chloride 113, CO2 of 17, BUN 18, creatinine 0.83, blood sugar 194, calcium 7.7, phosphorus 4.3, and magnesium 1.8. MEDICATIONS: Tylenol, Maalox, aspirin, Lopressor, atenolol, ferrous gluconate, subcutaneous heparin, insulin sliding scale, insulin infusion, levothyroxine, milk of magnesia, Zofran, Tamiflu, MiraLax, D5 half normal saline with 20 mEq of potassium per liter and Zantac. Blood cultures 10/31, no growth. There is no imaging study from today. Echocardiogram done yesterday shows hyperdynamic left ventricular systolic function, mild concentric left ventricular hypertrophy, left ventricular diastolic dysfunction, borderline left atrial enlargement, trace pulmonic, mitral and tricuspid regurgitation and aortic valve sclerosis, mild without significant aortic valvular stenosis. IMPRESSION: 1. Diabetic ketoacidosis. 2. Influenza B with upper respiratory infection. I suspect she may be developing some bronchitis. 3. Tachycardia, resolved. 4. History of hypertension. 5. Acute kidney injury, resolved. 6. History of hypothyroidism. 7. Very mildly elevated troponin, possibly secondary due to demand ischemia. 8. Metabolic acidosis, resolved. 9. History of prolapsed bladder. 10. Hypophosphatemia. PLAN: 1. Her fluids have been changed several times and she will now be on D5 half normal saline at 50 mL per hour. 2. She has been started on her subcutaneous insulin and her insulin infusion will run for 2 hours. She should be able to start a diet later today. 3. Phosphorus has been repleted. Potassium has been taken out of fluids. 4. Physical therapy and occupational therapy. 5. The Tamiflu dose has been increased based on her improved renal function. 6. Consult the network security consultant. 7. Consider changing her subcutaneous heparin to Lovenox. 8. Continue outpatient H2 alisia for GI prophylaxis. 9. Out of bed. 10. I anticipate she will be able to transfer to the medical floor later today. Thank you for asking me to see this very nice lady. Please call me with any questions or concerns.
[2016-11-01] MEDS ORDERED: [UNRECOGNIZED DRUG - REMARK] ONE (13:00)
[2016-11-01] MEDS: D5W AND 1/2NSS 1,000 ML IV SCH (13:27)
--- NOTE | 2016-11-01 15:10 | Family Medicine Progress Note ---
Progress Note Date of Service Nov 01, 2016. Subjective Pt evaluation today including: conversation w/ patient, physical exam Voiding: no voiding problems Patient feeling well this morning, appetite improving, still slightly fatigued. A&Ox3 Constitutional: + fatigue, No chills, No fever Respiratory: No cough, No shortness of breath, No wheezing Cardiovascular: No chest pain Abdomen: No constipation, No diarrhea, No nausea, No pain, No vomiting Female : No dysuria Medications Current Inpatient Medications Medications (Trade) Dose Ordered Sig/Maryann Route Start Time Stop Time Status Last Admin Dose Admin Miscellaneous Information (Consult Glycemic Management Pharmacy) 1 ea UD PRN N/A 10/31/16 11:15 11/30/16 11:14 Aspirin (Aspirin Chew) 81 mg QAM PO 11/01/16 09:00 12/01/16 08:59 11/01/16 07:59 81 MG Ferrous Gluconate (Ferrous Gluconate Tab) 324 mg BIDM PO 10/31/16 16:30 11/30/16 17:59 11/01/16 07:59 324 MG Levothyroxine Sodium (Synthroid Tab) 125 mcg DAILYBB PO 11/01/16 06:00 12/01/16 05:59 11/01/16 06:27 125 MCG Ranitidine HCl (zANTac TAB) 150 mg BID PO 10/31/16 21:00 11/30/16 20:59 11/01/16 07:59 150 MG Metoprolol Tartrate (Lopressor Iv) 5 mg Q6 PRN IV 10/31/16 11:15 11/30/16 11:14 Acetaminophen (Tylenol Tab) 650 mg Q4H PRN PO 10/31/16 11:30 11/30/16 11:29 Al Hydrox/Mg Hydrox/Simethicone (Maalox Max Susp) 15 ml Q4H PRN PO 10/31/16 11:30 11/30/16 11:29 Magnesium Hydroxide (Milk Of Magnesia Susp) 30 ml Q12H PRN PO 10/31/16 11:30 11/30/16 11:29 Ondansetron HCl (Zofran Inj) 4 mg Q6H PRN IV 10/31/16 11:30 11/30/16 11:29 Nitroglycerin (Nitrostat Tab) 0.4 mg UD PRN SL 10/31/16 11:30 11/30/16 11:29 Polyethylene (Miralax Powder Packet) 17 gm DAILY PRN PO 10/31/16 11:30 11/30/16 11:29 Heparin Sodium (Porcine) 5000 unit 5,000 unit Q12 SQ 10/31/16 21:00 11/30/16 20:59 11/01/16 08:01 5,000 UNIT Insulin Human Regular/Sodium Chloride (novoLIN-R/Nss 250ml) 252.5 ml @ 0 mls/hr DAILY@1130 IV 10/31/16 12:00 11/30/16 11:59 10/31/16 11:59 1.3 MLS/HR Insulin Aspart (novoLOG ASPART) SLIDING SCALE PCHS SC 10/31/16 12:28 11/30/16 12:59 11/01/16 08:38 1 UNITS Glucose (Glucose 40% Gel) UD PRN PO 10/31/16 11:45 11/30/16 11:44 Glucose (Glucose Chew Tab) 1 tabs UD PRN PO 10/31/16 11:45 11/30/16 11:44 Dextrose (Dextrose 50% 50ML Syringe) 50 ml UD PRN IV 10/31/16 11:45 11/30/16 11:44 Glucagon (Glucagon Inj) 1 mg UD PRN SQ 10/31/16 11:45 11/30/16 11:44 Metoprolol Tartrate (Lopressor Iv) 2.5 mg Q6 IV. 10/31/16 18:00 11/30/16 17:59 11/01/16 06:27 2.5 MG Oseltamivir Phosphate 30 mg 30 mg DAILY PO 11/01/16 09:00 11/04/16 09:01 11/01/16 07:58 30 MG Potassium Phosphate 30 mmol/ Sodium Chloride 510 ml @ 88 mls/hr TODAY@0530 IV 11/01/16 05:30 11/01/16 11:18 11/01/16 05:43 88 MLS/HR Potassium Chloride/Dextrose/ Sod Cl (D5W And 1/2nss + 20meq KCl) 1,000 ml @ 100 mls/hr Q10H IV 11/01/16 08:15 12/01/16 07:44 11/01/16 08:37 100 MLS/HR Objective Physical Exam General Appearance: WD/WN, no apparent distress Eyes: normal inspection, PERRL, sclerae normal Neck: supple, no JVD, no carotid bruits Respiratory/Chest: chest non-tender, lungs clear, normal breath sounds Cardiovascular: regular rate, rhythm, no gallop, no murmur Abdomen: normal bowel sounds, non tender, soft Neurologic/Psychiatric: alert, normal mood/affect, oriented x 3 Laboratory Results Results Past 24 Hours Test 10/31/16 09:26 10/31/16 10:25 10/31/16 10:31 10/31/16 10:39 Range/Units Urine Color YELLOW Urine Appearance CLEAR CLEAR Urine pH 5.0 4.5-7.5 Urine Specific Alloy 1.019 1.000-1.030 Urine Protein NEG NEG Urine Glucose (UA) 3+ NEG Urine Ketones 4+ NEG Urine Occult Blood NEG NEG Urine Nitrite NEG NEG Urine Bilirubin NEG NEG Urine Urobilinogen NEG NEG Urine Leukocyte Esterase NEG NEG Arterial Blood pH 7.14 7.35-7.45 Arterial Blood Partial Pressure CO2 12 35-46 mmHg Arterial Blood Partial Pressure O2 161 80-95 mm/Hg Arterial Blood HCO3 4 19-24 mmol/L Arterial Blood Oxygen Saturation 98.9 90-95 % Arterial Blood Base Excess -22.6 -9-1.8 mEq/L Arterial Blood Gas Delivery RA Fermín Test POS POS Bedside Glucose > 600 70-90 mg/dl Bedside Troponin I 0.000 0-0.045 ng/ml Test 10/31/16 10:40 10/31/16 12:15 10/31/16 12:30 10/31/16 13:25 Range/Units Potassium Level 4.5 4.8 3.5-5.1 mmol/L Random Glucose 704 667 603 70-99 mg/dl Beta-Hydroxybutyric Acid 111.42 106.33 95.89 0.2-2.81 mg/dL Venous Blood pH 7.11 7.36-7.41 Sodium Level 132 136-145 mmol/L Chloride Level 100 98-107 mmol/L Carbon Dioxide Level 5 21-32 mmol/L Anion Gap 27.0 3-11 mmol/L Blood Urea Nitrogen 46 7-18 mg/dl Creatinine 1.60 0.60-1.20 mg/dl Est Creatinine Clear Calc Drug Dose 20.9 ml/min Estimated GFR () 33.5 Estimated GFR (Non- 28.9 BUN/Creatinine Ratio 28.8 1020 Calcium Level 8.3 8.5-10.1 mg/dl Phosphorus Level 5.0 2.5-4.9 mg/dl Magnesium Level 2.6 1.8-2.4 mg/dl Influenza Type A Antigen Neg for Influ A NEG Influenza Type B Antigen POS for Influ B NEG Test 10/31/16 15:03 10/31/16 16:05 10/31/16 16:17 10/31/16 17:08 Range/Units Bedside Glucose 474 428 381 70-90 mg/dl Sodium Level 137 136-145 mmol/L Potassium Level 4.6 3.5-5.1 mmol/L Chloride Level 104 98-107 mmol/L Carbon Dioxide Level 12 21-32 mmol/L Anion Gap 21.0 3-11 mmol/L Blood Urea Nitrogen 45 7-18 mg/dl Creatinine 1.40 0.60-1.20 mg/dl Est Creatinine Clear Calc Drug Dose 23.9 ml/min Estimated GFR () 39.3 Estimated GFR (Non- 33.9 BUN/Creatinine Ratio 32.1 10-20 Random Glucose 435 70-99 mg/dl Calcium Level 8.1 8.5-10.1 mg/dl Creatine Kinase MB 1.8 0.5-3.6 ng/ml Creatine Kinase MB Ratio 0-3.0 Troponin I 0.117 0-0.045 ng/ml Beta-Hydroxybutyric Acid 66.49 0.2-2.81 mg/dL Test 10/31/16 18:04 10/31/16 19:01 10/31/16 20:06 10/31/16 20:48 Range/Units Bedside Glucose 330 284 243 70-90 mg/dl Sodium Level 139 136-145 mmol/L Potassium Level 4.2 3.5-5.1 mmol/L Chloride Level 108 98-107 mmol/L Carbon Dioxide Level 15 21-32 mmol/L Anion Gap 16.0 3-11 mmol/L Blood Urea Nitrogen 38 7-18 mg/dl Creatinine 1.20 0.60-1.20 mg/dl Est Creatinine Clear Calc Drug Dose 27.8 ml/min Estimated GFR () 47.4 Estimated GFR (Non- 40.9 BUN/Creatinine Ratio 31.3 10-20 Random Glucose 226 70-99 mg/dl Calcium Level 7.7 8.5-10.1 mg/dl Phosphorus Level 2.3 2.5-4.9 mg/dl Magnesium Level 2.3 1.8-2.4 mg/dl Test 10/31/16 21:00 10/31/16 22:03 10/31/16 23:00 11/01/16 00:11 Range/Units Bedside Glucose 226 216 195 70-90 mg/dl Sodium Level 142 136-145 mmol/L Potassium Level 3.8 3.5-5.1 mmol/L Chloride Level 110 98-107 mmol/L Carbon Dioxide Level 17 21-32 mmol/L Anion Gap 15.0 3-11 mmol/L Blood Urea Nitrogen 36 7-18 mg/dl Creatinine 1.10 0.60-1.20 mg/dl Est Creatinine Clear Calc Drug Dose 30.4 ml/min Estimated GFR () 52.6 Estimated GFR (Non- 45.4 BUN/Creatinine Ratio 32.4 10-20 Random Glucose 200 70-99 mg/dl Calcium Level 8.0 8.5-10.1 mg/dl Phosphorus Level 1.9 2.5-4.9 mg/dl Test 11/01/16 01:56 11/01/16 02:00 11/01/16 02:07 11/01/16 04:13 Range/Units Bedside Glucose 164 164 70-90 mg/dl Creatine Kinase MB Ratio 0-3.0 Creatine Kinase MB 2.3 0.5-3.6 ng/ml Troponin I 0.551 0-0.045 ng/ml Test 11/01/16 04:16 11/01/16 06:08 11/01/16 07:17 11/01/16 08:13 Range/Units White Blood Count 8.44 4.8-10.8 K/uL Red Blood Count 3.45 4.2-5.4 M/uL Hemoglobin 10.2 12.0-16.0 g/dL Hematocrit 29.7 37-47 % Mean Corpuscular Volume 86.1 80-100 fL Mean Corpuscular Hemoglobin 29.6 25-34 pg Mean Corpuscular Hemoglobin Concent 34.3 32-36 g/dl RDW Standard Deviation 44.4 36.4-46.3 fL RDW Coefficient of Variation 14.0 11.5-14.5 % Platelet Count 164 130-400 K/uL Mean Platelet Volume 9.9 7.4-10.4 fL Sodium Level 143 136-145 mmol/L Potassium Level 3.6 3.5-5.1 mmol/L Chloride Level 113 98-107 mmol/L Carbon Dioxide Level 19 21-32 mmol/L Anion Gap 11.0 3-11 mmol/L Blood Urea Nitrogen 24 7-18 mg/dl Creatinine 0.85 0.60-1.20 mg/dl Est Creatinine Clear Calc Drug Dose 39.3 ml/min Estimated GFR () 71.9 Estimated GFR (Non- 62.0 BUN/Creatinine Ratio 28.5 10-20 Random Glucose 158 70-99 mg/dl Calcium Level 7.6 8.5-10.1 mg/dl Phosphorus Level 1.3 2.5-4.9 mg/dl Magnesium Level 2.0 1.8-2.4 mg/dl Troponin I 0.507 0-0.045 ng/ml Bedside Glucose 145 131 196 70-90 mg/dl Test 11/01/16 08:18 Range/Units Sodium Level 142 136-145 mmol/L Potassium Level 4.9 3.5-5.1 mmol/L Chloride Level 113 98-107 mmol/L Carbon Dioxide Level 17 21-32 mmol/L Anion Gap 12.0 3-11 mmol/L Blood Urea Nitrogen 18 7-18 mg/dl Creatinine 0.83 0.60-1.20 mg/dl Est Creatinine Clear Calc Drug Dose 40.2 ml/min Estimated GFR () 74.0 Estimated GFR (Non- 63.9 BUN/Creatinine Ratio 21.6 10-20 Random Glucose 194 70-99 mg/dl Calcium Level 7.7 8.5-10.1 mg/dl Phosphorus Level 4.3 2.5-4.9 mg/dl Magnesium Level 1.8 1.8-2.4 mg/dl Microbiology Results 10/31/16 Blood Culture, Received Pending 10/31/16 MRSA DNA Surveillance Screen - Final, Complete Specimen Negative for MRSA by DNA Probe Assessment and Plan Patient is an 86 year old female that presented yesterday with DKA 1) DKA 2/2 Acute Illness - Anion Gap wnl - Transition from Insulin drip to Injectable Insulin - Insulin basal bolus after 2 hour overlap of Insulin Drip and sq Insulin - Meet with Diabetic Education - Last HbA1c 11.7 - Potassium replacement - K+ currently 3.6 - D5 1/2 NS IVF 2) Influenza B - Oseltamivir 30mg - 2L Oxygen 3) Chest Pain - EKG in ED showed non specific ST changes - Chest Pain relieved with NTG - ECHO - 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
[2016-11-01 15:59] LABS: BUN/CREATININE RATIO 14.7 (10-20); CALCIUM 7.9 mg/dl (8.5-10.1); CREATININE 0.76 mg/dl (0.60-1.20); POTASSIUM 3.9 mmol/L (3.5-5.1)
[2016-11-01 16:06] LABS: PHOSPHORUS 1.5 mg/dl (2.5-4.9)
[2016-11-01] MEDS: OSELTAMIVIR PHOSPHATE SUSP 30 MG/5 ML UDP PO SCH (21:22)
[2016-11-02] MEDS ORDERED: INSULIN ASPART 100 UNITS/ML 3 ML PEN SC ONE (02:00)
[2016-11-02] MEDS: LEVOTHYROXINE 125 MCG TAB PO SCH (05:58)
[2016-11-02 06:31] LABS: HEMATOCRIT 32.4 % (37-47); MEAN CELL VOLUME 83.7 fL (80-100); MEAN CORPUSCULAR HEMOGLOBIN 29.5 pg (25-34); MEAN CORPUSCULAR HGB CONC 35.2 g/dl (32-36); MEAN PLATELET VOLUME 9.9 fL (7.4-10.4); PLATELET COUNT 167 K/uL (130-400); RED BLOOD COUNT 3.87 M/uL (4.2-5.4); WHITE BLOOD COUNT 5.73 K/uL (4.8-10.8)
[2016-11-02 07:00] LABS: BUN/CREATININE RATIO 9.4 (10-20); CALCIUM 8.2 mg/dl (8.5-10.1); CREATININE 0.63 mg/dl (0.60-1.20); MAGNESIUM 1.7 mg/dl (1.8-2.4); PHOSPHORUS 1.9 mg/dl (2.5-4.9); POTASSIUM 3.5 mmol/L (3.5-5.1)
[2016-11-02] MEDS ORDERED: POTASSIUM PHOS 3 MMOL/1 ML INFUSION IV STA (07:39)
[2016-11-02 07:43] VITALS: BP 145/90; PULSE 90; TEMP 36.8; O2SAT 98
[2016-11-02 07:46] VITALS: O2SAT 98
[2016-11-02] MEDS ORDERED: INSULIN GLARGINE SOLOSTAR 100 UNITS/ML 3 ML PEN SC SCH ×5 (08:00→21:00)
[2016-11-02] MEDS ORDERED: AMLODIPINE BESYLATE 5 MG TAB PO SCH (08:00)
[2016-11-02] MEDS ORDERED: POTASSIUM PHOSPHATE INJ 24 MMOL in SODIUM CHLORIDE 0.9% 500ML 500 ML IV ONE (08:00)
[2016-11-02] MEDS: ASPIRIN 81 MG CHEW PO SCH (08:17)
[2016-11-02] MEDS: RANITIDINE HCL 150 MG TAB PO SCH ×2 (08:17→20:57)
[2016-11-02] MEDS: FERROUS GLUCONATE 324 MG TAB PO SCH ×2 (08:18→17:22)
[2016-11-02] MEDS: MULTIVITAMIN TAB PO SCH (08:20)
[2016-11-02] MEDS: D5W AND 1/2NSS 1,000 ML IV SCH (08:27)
[2016-11-02] MEDS ORDERED: MAGNESIUM SULFATE 1GM / D5W 1 GM in PREMIXED IN D5W 100 ML IV ONE (08:30)
[2016-11-02] MEDS: OSELTAMIVIR PHOSPHATE SUSP 30 MG/5 ML UDP PO SCH ×2 (08:34→21:01)
[2016-11-02] MEDS: HEPARIN SOD 5000 UNIT/0.5 ML CARP SQ SCH (08:44)
[2016-11-02] MEDS: INSULIN ASPART 100 UNITS/ML 3 ML PEN SC SCH ×4 (08:45→20:59)
[2016-11-02 11:44] VITALS: BP 112/71; PULSE 124; TEMP 36.8; O2SAT 98
[2016-11-02 12:00] VITALS: PULSE 116
[2016-11-02] MEDS ORDERED: PHARMACY GLYCEMIC MGMT CONSULT STA (12:06)
[2016-11-02] MEDS ORDERED: NURSING VERBAL MED ORDER ONE (12:15)
[2016-11-02] MEDS ORDERED: INSULIN GLARGINE SOLOSTAR 100 UNITS/ML 3 ML PEN SC ONE (12:15)
[2016-11-02] MEDS ORDERED: INSULIN REGULAR 4 UNITS in SYRINGE 3.96 ML IV ONE (12:15)
[2016-11-02 14:05] VITALS: BP 106/68; PULSE 119; TEMP 36.7; O2SAT 98
--- NOTE | 2016-11-02 14:37 | Pharmacy Progress Note ---
Glycemic Control: Progress Nt Date of Service Nov 02, 2016. Scope Glycemic Pharmacist consulted by Dr Bah on 11/02/16 for glycemic control and to write orders per [facility] inpatient glycemic control protocol. Objective Accuchecks BSG (last 24hrs): Test 11/01/16 15:24 11/01/16 15:37 11/01/16 20:02 11/02/16 02:01 Random Glucose 216 mg/dl (70-99) Bedside Glucose 220 mg/dl (70-90) 249 mg/dl (70-90) 254 mg/dl (70-90) Test 11/02/16 05:17 11/02/16 07:02 11/02/16 11:08 11/02/16 14:02 Random Glucose 257 mg/dl (70-99) Bedside Glucose 308 mg/dl (70-90) 282 mg/dl (70-90) 173 mg/dl (70-90) Laboratory Data (last 24hrs) Test 11/01/16 15:24 11/02/16 05:17 Anion Gap 10.0 mmol/L 13.0 mmol/L BUN/Creatinine Ratio 14.7 9.4 Blood Urea Nitrogen 11 mg/dl 6 mg/dl Creatinine 0.76 mg/dl 0.63 mg/dl Potassium Level 3.9 mmol/L 3.5 mmol/L Sodium Level 137 mmol/L 136 mmol/L White Blood Count 5.73 K/uL HbA1c: 11.7% 08/22/16 Recent Pertinent Medications Outpatient Anti-diabetic Regimen: * Lantus 7-8 units Q PM * Novolog 4-6 units TID w/ meals * A1c = 11.7 % 08/22/16 The patient is currently receiving: * Basal insulin: Lantus 10 units SQ Q AM * Correctional Insulin ACHS and at 0200 * Goal Range: 140-180mg/dL * Correction factor: 35mg/dL * Prandial Insulin: 1 unit per 13 gm CHO consumed with meals Risk Factors for Insulin Resistance: * Infection: Influenza B; receiving Tamiflu * IVF: D5 1/2 NS + 20mEq KCl @100cc/hr ---> d/c'd at noontime today * Diet: ordered T2DM/AHA diet but not consuming large amounts of carbs w/ meals , maybe 29gm CHO max at meals Assessment & Plan ASSESSMENT: 10/31/16 * Patient is an 86yo diabetic female who had not taken her insulin doses for ~4 days d/t illness with decreased appetite. * Patient admitted today with significant DKA: * BSG 774 mg/dL, AG 30 mmol/L, CO2 7 mmol/L, BHA 117 mg/dL, VBG pH 7.11, + 4 ketones in the urine * Patient was initiated on an IV insulin infusion in the ED, which will need to continue until DKA has resolved. * Pharmacy will continue to follow and aid in the transition to SQ insulin when appropriate. 11/01/16 * Insulin infusion continues this AM; AG acidosis resolved, however still somewhat acidotic (Bicarb 17-19) but greatly improved. BSGs in the 100's low 200 's this AM. * She was ordered a diet this AM and tolerate a small breakfast. * Patient meets criteria for transition off insulin drip. Will begin basal/ bolus SQ regimen based upon outpt insulin doses and weight. Insulin infusion data may be misleading due to short duration of infusion, glucotoxicity and insulin resistance seen in DKA. 11/02/16 * Fasting BSG up to 308 this AM, clearly she is basal insulin deficient. She had 10 units of Lantus on board this AM * Pre-lunch BSG 282 following AM Lantus 10 units and 6 units of Novolog, most of which was correctional * Will increase the basal insulin dose, give a supplemental dose w/ lunch to obtain control more quickly. * Given last 3 BSGs > 250, will treat more aggressively by giving IV regular insulin bolus x 1 and also increase Novolog SQ doses * Continue BSG check at 0200 to allow for additional coverage until control improves * Dextrose containing IVF's are being stopped, expect improved glycemic control w/ this change PLAN FOR INPATIENT GLYCEMIC CONTROL: * Increase Lantus to 10 units Q AM + 4 units Q PM; give additional 4 units SQ x 1 now * Correctional Insulin with NOVOLOG per scale ACHS and at 0200 to allow for additional coverage * Change goal range to Low 120 mg/dL - High 150 mg/dL * Change correction factor to 30 mg/dL/unit * Change carb ratio to 1 unit per 10 grams CHO consumed * Please note that the plan above was derived based on current level of insulin resistance and hospital stress. These recommendations are appropriate for inpatient admission only. Plan of care upon discharge will need to be reassessed to avoid potential outpatient hypo/hyperglycemia. Thank you.
[2016-11-02 15:19] LABS: MAGNESIUM 2.1 mg/dl (1.8-2.4)
--- NOTE | 2016-11-02 17:07 | Progress Note ---
Subjective Date of Service: Nov 02, 2016. Subjective Pt evaluation today including: conversation w/ patient, physical exam, lab review, review of inpatient medication list Pain: no pain PO Intake: adequate Voiding: no voiding problems patient doing better today in the morning however, in the afternoon patient had tachycardia and EKG revealed atrial fibrillation in the 120's was given Atenolol 50mg once patient's sugars also were elevated, monica to 300, received extra dose of Lantus , then had hypoglycemia discussed with patient, no plans for discharge today Problem List Medical Problems: (1) DKA (diabetic ketoacidoses) Status: Acute Review of Systems All Other Systems: Reviewed and Negative Medications Current Inpatient Medications Medications (Trade) Dose Ordered Sig/Maryann Route Start Time Stop Time Status Last Admin Dose Admin Miscellaneous Information (Consult Glycemic Management Pharmacy) 1 ea UD PRN N/A 10/31/16 11:15 11/30/16 11:14 Aspirin (Aspirin Chew) 81 mg QAM PO 11/01/16 09:00 12/01/16 08:59 11/02/16 08:17 81 MG Ferrous Gluconate (Ferrous Gluconate Tab) 324 mg BIDM PO 10/31/16 16:30 11/30/16 17:59 11/02/16 08:18 324 MG Levothyroxine Sodium (Synthroid Tab) 125 mcg DAILYBB PO 11/01/16 06:00 12/01/16 05:59 11/02/16 05:58 125 MCG Ranitidine HCl (zANTac TAB) 150 mg BID PO 10/31/16 21:00 11/30/16 20:59 11/02/16 08:17 150 MG Acetaminophen (Tylenol Tab) 650 mg Q4H PRN PO 10/31/16 11:30 11/30/16 11:29 Al Hydrox/Mg Hydrox/Simethicone (Maalox Max Susp) 15 ml Q4H PRN PO 10/31/16 11:30 11/30/16 11:29 Magnesium Hydroxide (Milk Of Magnesia Susp) 30 ml Q12H PRN PO 10/31/16 11:30 11/30/16 11:29 Ondansetron HCl (Zofran Inj) 4 mg Q6H PRN IV 10/31/16 11:30 11/30/16 11:29 Nitroglycerin (Nitrostat Tab) 0.4 mg UD PRN SL 10/31/16 11:30 11/30/16 11:29 Polyethylene (Miralax Powder Packet) 17 gm DAILY PRN PO 10/31/16 11:30 11/30/16 11:29 Heparin Sodium (Porcine) (Heparin Sq 5000 Unit/0.5ml) 5,000 unit Q12 SQ 10/31/16 21:00 11/30/16 20:59 11/02/16 08:44 5,000 UNIT Glucose (Glucose 40% Gel) UD PRN PO 10/31/16 11:45 11/30/16 11:44 Glucose (Glucose Chew Tab) 1 tabs UD PRN PO 10/31/16 11:45 11/30/16 11:44 Dextrose (Dextrose 50% 50ML Syringe) 50 ml UD PRN IV 10/31/16 11:45 11/30/16 11:44 Glucagon (Glucagon Inj) 1 mg UD PRN SQ 10/31/16 11:45 11/30/16 11:44 Oseltamivir Phosphate (Tamiflu Susp) 30 mg BID PO 11/01/16 20:00 11/04/16 23:59 11/02/16 08:34 30 MG Insulin Aspart (novoLOG ASPART) SLIDING SCALE ACHS SC 11/01/16 16:00 12/01/16 15:59 11/02/16 12:37 7 UNITS Multivitamins (Multivitamin Tab) 1 tab QAM PO 11/02/16 08:00 12/02/16 08:59 11/02/16 08:20 1 TAB Insulin Glargine (Lantus Solostar Pen) 10 unit QAM SC 11/02/16 08:00 12/02/16 07:59 11/02/16 08:44 10 UNIT Insulin Aspart (novoLOG ASPART) SLIDING SCALE TODAY@0200 ONCE SC 11/03/16 02:00 11/03/16 02:01 Atenolol (Tenormin Tab) 100 mg QAM PO 11/03/16 08:00 12/03/16 07:59 Insulin Glargine (Lantus Solostar Pen) Give 0 units if BSG l... HS SC 11/02/16 21:00 12/02/16 20:59 Objective Vital Signs Date Time Temp Pulse Resp B/P Pulse Ox O2 Delivery O2 Flow Rate FiO2 11/02/16 16:00 Room Air 11/02/16 14:05 36.7 119 18 106/68 98 Room Air 11/02/16 12:00 116 11/02/16 11:44 36.8 124 20 112/71 98 Room Air 11/02/16 08:20 Room Air 11/02/16 07:46 98 Room Air 11/02/16 07:43 36.8 90 20 145/90 98 11/01/16 23:18 36.9 78 18 154/71 96 Room Air 11/01/16 17:55 98 Room Air Mask 11/01/16 17:55 36.6 80 18 173/75 98 Room Air 11/01/16 17:39 36.9 87 20 97 Physical Exam General Appearance: WD/WN, no apparent distress Eyes: normal inspection, EOMI, sclerae normal ENT: normal ENT inspection, hearing grossly normal, pharynx normal Neck: supple, no adenopathy, no JVD, trachea midline Respiratory/Chest: chest non-tender, lungs clear, normal breath sounds, no respiratory distress, no accessory muscle use Cardiovascular: no edema, no gallop, no JVD, no murmur, + tachycardia, + irregularly irregular Abdomen: normal bowel sounds, non tender, soft, no organomegaly Extremities: normal range of motion, non-tender, normal inspection, no pedal edema, no calf tenderness 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, no motor/sensory deficits, alert, normal mood/affect, oriented x 3 Skin: normal color, warm/dry, no rash Lymphatic: no adenopathy Laboratory Results Last 24 Hours Test 11/01/16 20:02 11/02/16 02:01 11/02/16 05:17 11/02/16 07:02 Bedside Glucose 249 mg/dl 254 mg/dl 308 mg/dl White Blood Count 5.73 K/uL Red Blood Count 3.87 M/uL Hemoglobin 11.4 g/dL Hematocrit 32.4 % Mean Corpuscular Volume 83.7 fL Mean Corpuscular Hemoglobin 29.5 pg Mean Corpuscular Hemoglobin Concent 35.2 g/dl RDW Standard Deviation 42.3 fL RDW Coefficient of Variation 13.8 % Platelet Count 167 K/uL Mean Platelet Volume 9.9 fL Sodium Level 136 mmol/L Potassium Level 3.5 mmol/L Chloride Level 102 mmol/L Carbon Dioxide Level 21 mmol/L Anion Gap 13.0 mmol/L Blood Urea Nitrogen 6 mg/dl Creatinine 0.63 mg/dl Est Creatinine Clear Calc Drug Dose 53.0 ml/min Estimated GFR () 94.1 Estimated GFR (Non- 81.2 BUN/Creatinine Ratio 9.4 Random Glucose 257 mg/dl Calcium Level 8.2 mg/dl Phosphorus Level 1.9 mg/dl Magnesium Level 1.7 mg/dl Test 11/02/16 11:08 11/02/16 14:02 11/02/16 14:35 11/02/16 16:00 Bedside Glucose 282 mg/dl 173 mg/dl 68 mg/dl Magnesium Level 2.1 mg/dl Test 11/02/16 16:32 Bedside Glucose 102 mg/dl Assessment and Plan 86 yo female with history of DM, HTN, hyperlipidemia who presented with chest pain, dyspnea and overall not feeling well, stopped taking insulin a few days ago due to eating less - DKA: sugars 700's, HCO3 7, anion gap 30, beta-hydroxybutyrate 117 on admission NSS at 150cc/hr, insulin infusion follow BMP q4, replace potassium, magnesium and phosphorus as needed anion gap closed on 11/01, transitioned off of insulin gtt and on basal bolus regimen today sugars labile, as high as 300, dropped to 68 even though she is eating well pharmacy adjusting insulin regimen, Lantus 10 units AM, 4 units PM - Atrial fibrillation: new onset, likely due to stress of DKA and influenza increase Atenolol from 25mg BID to 100mg daily, received extra 50mg today check echocardiogram will need to address anticoagulation, will start on Lovenox q12 tonight no telemetry beds currently and since HR in 110-120's and asymptomatic will keep on medical floor - Influenza B: Tamiflu x 5 days, breathing stable, no hypoxia - LISSETT: due to dehydration and volume depletion with the DKA treated with IV fluids, hold nephrotoxins, resolved, Cr down to normal, excellent UO - Chest pain: likely due to increased metabolic demands and acidosis non-specific changes on EKG, enzymes negative, echo normal with hyperdynamic EF in setting of DKA
[2016-11-02] MEDS ORDERED: ENOXAPARIN 1 MG/KG SQ SCH (17:30)
[2016-11-02 20:43] LABS: PHOSPHORUS 3.6 mg/dl (2.5-4.9)
[2016-11-02] MEDS: ENOXAPARIN 60 MG/0.6 ML SYR SQ SCH (20:57)
[2016-11-03] VITALS (10 sets, daily range): BP systolic 96–136; BP diastolic 59–81; PULSE 88–140; TEMP 36.7–37.2; O2SAT 93–98
[2016-11-03] MEDS ORDERED: INSULIN ASPART 100 UNITS/ML 3 ML PEN SC ONE (02:00)
[2016-11-03] MEDS: LEVOTHYROXINE 125 MCG TAB PO SCH (06:12)
[2016-11-03 06:24] LABS: HEMATOCRIT 33.3 % (37-47); MEAN CELL VOLUME 83.3 fL (80-100); MEAN CORPUSCULAR HEMOGLOBIN 29.8 pg (25-34); MEAN CORPUSCULAR HGB CONC 35.7 g/dl (32-36); MEAN PLATELET VOLUME 10.2 fL (7.4-10.4); PLATELET COUNT 172 K/uL (130-400); WHITE BLOOD COUNT 6.15 K/uL (4.8-10.8)
[2016-11-03 06:54] LABS: CALCIUM 7.9 mg/dl (8.5-10.1); CREATININE 0.6 mg/dl (0.60-1.20); POTASSIUM 3.2 mmol/L (3.5-5.1)
[2016-11-03 06:57] LABS: PHOSPHORUS 2.2 mg/dl (2.5-4.9)
[2016-11-03] MEDS ORDERED: POTASSIUM PHOS 3 MMOL/1 ML INFUSION IV STA (07:16)
[2016-11-03] MEDS: POTASSIUM CHLR 10 MEQ / WTR 10 MEQ in PREMIXED WATER 100 ML IV SCH ×2 (08:13→10:17)
[2016-11-03] MEDS: OSELTAMIVIR PHOSPHATE SUSP 30 MG/5 ML UDP PO SCH ×2 (08:14→21:08)
[2016-11-03] MEDS: FERROUS GLUCONATE 324 MG TAB PO SCH ×2 (08:14→17:05)
[2016-11-03] MEDS: RANITIDINE HCL 150 MG TAB PO SCH ×2 (08:14→21:07)
[2016-11-03] MEDS: MULTIVITAMIN TAB PO SCH (08:14)
[2016-11-03] MEDS: INSULIN ASPART 100 UNITS/ML 3 ML PEN SC SCH ×4 (08:21→21:10)
[2016-11-03] MEDS: ASPIRIN 81 MG CHEW PO SCH (08:22)
[2016-11-03] MEDS: INSULIN GLARGINE SOLOSTAR 100 UNITS/ML 3 ML PEN SC SCH ×2 (08:22→21:11)
[2016-11-03] MEDS: ENOXAPARIN 60 MG/0.6 ML SYR SQ SCH ×2 (08:24→21:08)
[2016-11-03] MEDS ORDERED: DILTIAZEM HCL 30 MG TAB PO ONE (09:15)
[2016-11-03] MEDS ORDERED: POTASSIUM CHLORIDE 10 MEQ TABCR PO STA (09:26)
[2016-11-03] MEDS ORDERED: POTASSIUM CHLR 10 MEQ / WTR 10 MEQ in PREMIXED WATER 100 ML IV SCH (09:30)
[2016-11-03] MEDS ORDERED: POTASSIUM PHOSPHATE INJ 15 MMOL in SODIUM CHLORIDE 0.9% 250ML 250 ML IV SCH (10:00)
--- NOTE | 2016-11-03 11:24 | Family Medicine Progress Note ---
Progress Note Date of Service Nov 03, 2016. Subjective Pt evaluation today including: conversation w/ patient, physical exam, chart review, lab review, review of studies Pain: No pain reported this morning Voiding: no voiding problems, no incontinence Constitutional: No chills, No fever, No sweats Respiratory: No cough, No sputum, No wheezing Cardiovascular: No chest pain Abdomen: No diarrhea, No nausea, No pain, No vomiting Musculoskeletal: No joint pain Female : No dysuria Neurologic: No weakness Medications Current Inpatient Medications Medications (Trade) Dose Ordered Sig/Maryann Route Start Time Stop Time Status Last Admin Dose Admin Miscellaneous Information (Consult Glycemic Management Pharmacy) 1 ea UD PRN N/A 10/31/16 11:15 11/30/16 11:14 Aspirin (Aspirin Chew) 81 mg QAM PO 11/01/16 09:00 12/01/16 08:59 11/03/16 08:22 81 MG Ferrous Gluconate (Ferrous Gluconate Tab) 324 mg BIDM PO 10/31/16 16:30 11/30/16 17:59 11/03/16 08:14 324 MG Levothyroxine Sodium (Synthroid Tab) 125 mcg DAILYBB PO 11/01/16 06:00 12/01/16 05:59 11/03/16 06:12 125 MCG Ranitidine HCl (zANTac TAB) 150 mg BID PO 10/31/16 21:00 11/30/16 20:59 11/03/16 08:14 150 MG Acetaminophen (Tylenol Tab) 650 mg Q4H PRN PO 10/31/16 11:30 11/30/16 11:29 Al Hydrox/Mg Hydrox/Simethicone (Maalox Max Susp) 15 ml Q4H PRN PO 10/31/16 11:30 11/30/16 11:29 Magnesium Hydroxide (Milk Of Magnesia Susp) 30 ml Q12H PRN PO 10/31/16 11:30 11/30/16 11:29 Ondansetron HCl (Zofran Inj) 4 mg Q6H PRN IV 10/31/16 11:30 11/30/16 11:29 Nitroglycerin (Nitrostat Tab) 0.4 mg UD PRN SL 10/31/16 11:30 11/30/16 11:29 Polyethylene (Miralax Powder Packet) 17 gm DAILY PRN PO 10/31/16 11:30 11/30/16 11:29 Glucose (Glucose 40% Gel) UD PRN PO 10/31/16 11:45 11/30/16 11:44 Glucose (Glucose Chew Tab) 1 tabs UD PRN PO 10/31/16 11:45 11/30/16 11:44 Dextrose (Dextrose 50% 50ML Syringe) 50 ml UD PRN IV 10/31/16 11:45 11/30/16 11:44 Glucagon (Glucagon Inj) 1 mg UD PRN SQ 10/31/16 11:45 11/30/16 11:44 Oseltamivir Phosphate (Tamiflu Susp) 30 mg BID PO 11/01/16 20:00 11/04/16 23:59 11/03/16 08:14 30 MG Insulin Aspart (novoLOG ASPART) SLIDING SCALE ACHS SC 11/01/16 16:00 12/01/16 15:59 11/03/16 08:21 7 UNITS Multivitamins (Multivitamin Tab) 1 tab QAM PO 11/02/16 08:00 12/02/16 08:59 11/03/16 08:14 1 TAB Atenolol (Tenormin Tab) 100 mg QAM PO 11/03/16 08:00 12/03/16 07:59 11/03/16 08:15 100 MG Insulin Glargine (Lantus Solostar Pen) Give 0 units if BSG l... HS SC 11/02/16 21:00 12/02/16 20:59 11/02/16 20:59 4 UNIT Enoxaparin Sodium (Lovenox Inj) 50 mg Q12 SQ 11/02/16 21:00 12/02/16 20:59 11/03/16 08:24 50 MG Insulin Glargine give 5 units if BSG l... BID SC 11/03/16 08:00 12/03/16 07:59 11/03/16 08:22 10 UNIT Potassium Phosphate/Sodium Chloride (Potassium Phosphate Inj/Nss 250ml) 255 ml @ 88 mls/hr TODAY@1000 IV 11/03/16 10:00 11/03/16 12:54 Objective Vital Signs Date Time Temp Pulse Resp B/P Pulse Ox O2 Delivery O2 Flow Rate FiO2 11/03/16 10:09 36.8 130 18 118/69 98 Room Air 11/03/16 10:09 36.9 140 18 95 11/03/16 08:18 131 129/80 11/03/16 07:30 Room Air 11/03/16 07:27 36.9 140 18 96/59 95 Room Air 11/03/16 07:23 130 11/03/16 06:30 36.8 117 18 125/73 95 Room Air 11/03/16 00:21 36.7 114 20 100/70 97 Room Air 11/03/16 00:00 Room Air 11/02/16 16:00 Room Air 11/02/16 14:05 36.7 119 18 106/68 98 Room Air 11/02/16 12:00 116 11/02/16 11:44 36.8 124 20 112/71 98 Room Air Physical Exam General Appearance: WD/WN, no apparent distress Respiratory/Chest: chest non-tender, lungs clear, normal breath sounds Cardiovascular: no edema, no gallop, + irregularly irregular Abdomen: normal bowel sounds, non tender, soft Laboratory Results Results Past 24 Hours Test 11/02/16 14:02 11/02/16 14:35 11/02/16 16:00 11/02/16 16:32 Range/Units Bedside Glucose 173 68 102 70-90 mg/dl Phosphorus Level 3.6 2.5-4.9 mg/dl Magnesium Level 2.1 1.8-2.4 mg/dl Test 11/02/16 20:01 11/03/16 02:20 11/03/16 05:51 11/03/16 07:39 Range/Units Bedside Glucose 202 146 198 70-90 mg/dl White Blood Count 6.15 4.8-10.8 K/uL Red Blood Count 4.00 4.2-5.4 M/uL Hemoglobin 11.9 12.0-16.0 g/dL Hematocrit 33.3 37-47 % Mean Corpuscular Volume 83.3 80-100 fL Mean Corpuscular Hemoglobin 29.8 25-34 pg Mean Corpuscular Hemoglobin Concent 35.7 32-36 g/dl RDW Standard Deviation 41.8 36.4-46.3 fL RDW Coefficient of Variation 13.7 11.5-14.5 % Platelet Count 172 130-400 K/uL Mean Platelet Volume 10.2 7.4-10.4 fL Sodium Level 134 136-145 mmol/L Potassium Level 3.2 3.5-5.1 mmol/L Chloride Level 101 98-107 mmol/L Carbon Dioxide Level 24 21-32 mmol/L Anion Gap 9.0 3-11 mmol/L Blood Urea Nitrogen 9 7-18 mg/dl Creatinine 0.60 0.60-1.20 mg/dl Est Creatinine Clear Calc Drug Dose 55.7 ml/min Estimated GFR () 95.7 Estimated GFR (Non- 82.5 BUN/Creatinine Ratio 15.0 10-20 Random Glucose 148 70-99 mg/dl Calcium Level 7.9 8.5-10.1 mg/dl Phosphorus Level 2.2 2.5-4.9 mg/dl Magnesium Level 2.0 1.8-2.4 mg/dl Test 11/03/16 10:45 Range/Units Assessment and Plan Patient is an 86 year old female that presented yesterday with DKA 1) Atrial Fibrillation - Patient spontaneously presented with elevated HR and atrial fibrillation - No past history of atrial fibrillation - Patient received normal dose of 25mg yesterday morning, an afternoon dose of 50mg, then an evening dose of 25mg - This morning patient received dose of 100mg Atenolol - Diltiazem 30mg q6h - Metoprolol 5mg IV q6h PRN if HR > 120 - Transferred to Telemetry 2) Acute EKG Changes - ST depression on EKG this am - Most likely demand ischemia 2/2 elevated heart rate - Transfer to Telemetry - Troponins q8h - Denies any chest pain 3) DKA 2/2 Acute Illness - Resolved - Anion Gap wnl - Elevated sugars yesterday (250s) so received extra dose of Lantus as per pharmacy - Last HbA1c 11.7, Received diabetic education 4) Influenza B - Oseltamivir day 12/14 5) Chest Pain - EKG in ED showed non specific ST changes - Chest Pain relieved with NTG - ECHO - 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
[2016-11-03] MEDS ORDERED: METOPROLOL TARTRATE 1 MG/ML VIAL IV PRN (12:00)
--- NOTE | 2016-11-03 13:26 | Pharmacy Progress Note ---
Glycemic Control: Progress Nt Date of Service Nov 03, 2016. Scope Glycemic Pharmacist consulted by Dr Bah on 10/31/16 for glycemic control and to write orders per [facility] inpatient glycemic control protocol. Objective Accuchecks BSG (last 24hrs): Test 11/02/16 14:02 11/02/16 16:00 11/02/16 16:32 11/02/16 20:01 Bedside Glucose 173 mg/dl (70-90) 68 mg/dl (70-90) 102 mg/dl (70-90) 202 mg/dl (70-90) Test 11/03/16 02:20 11/03/16 05:51 11/03/16 07:39 11/03/16 11:26 Bedside Glucose 146 mg/dl (70-90) 198 mg/dl (70-90) 174 mg/dl (70-90) Random Glucose 148 mg/dl (70-99) Laboratory Data (last 24hrs) Test 11/03/16 05:51 Anion Gap 9.0 mmol/L BUN/Creatinine Ratio 15.0 Blood Urea Nitrogen 9 mg/dl Creatinine 0.60 mg/dl Potassium Level 3.2 mmol/L Sodium Level 134 mmol/L White Blood Count 6.15 K/uL HbA1c: 11.7% 08/22/16 Recent Pertinent Medications Outpatient Anti-diabetic Regimen: * Lantus 7-8 units Q PM * Novolog 4-6 units TID w/ meals * A1c = 11.7 % 08/22/16 The patient is currently receiving: * Basal insulin: Lantus 10 units SQ Q AM + 4 units Q PM * Correctional Insulin ACHS and at 0200 * Goal Range: 120-150mg/dL * Correction factor: 30mg/dL * Prandial Insulin: 1 unit per 10 gm CHO consumed with meals Risk Factors for Insulin Resistance: * Infection: Influenza B; receiving Tamiflu * Diet: ordered T2DM/AHA diet but not consuming large amounts of carbs w/ meals , maybe 17-32gm CHO max at meals Assessment & Plan ASSESSMENT: 10/31/16 * Patient is an 86yo diabetic female who had not taken her insulin doses for ~4 days d/t illness with decreased appetite. * Patient admitted today with significant DKA: * BSG 774 mg/dL, AG 30 mmol/L, CO2 7 mmol/L, BHA 117 mg/dL, VBG pH 7.11, + 4 ketones in the urine * Patient was initiated on an IV insulin infusion in the ED, which will need to continue until DKA has resolved. * Pharmacy will continue to follow and aid in the transition to SQ insulin when appropriate. 11/01/16 * Insulin infusion continues this AM; AG acidosis resolved, however still somewhat acidotic (Bicarb 17-19) but greatly improved. BSGs in the 100's low 200 's this AM. * She was ordered a diet this AM and tolerate a small breakfast. * Patient meets criteria for transition off insulin drip. Will begin basal/ bolus SQ regimen based upon outpt insulin doses and weight. Insulin infusion data may be misleading due to short duration of infusion, glucotoxicity and insulin resistance seen in DKA. 11/02/16 * Fasting BSG up to 308 this AM, clearly she is basal insulin deficient. She had 10 units of Lantus on board this AM * Pre-lunch BSG 282 following AM Lantus 10 units and 6 units of Novolog, most of which was correctional * Will increase the basal insulin dose, give a supplemental dose w/ lunch to obtain control more quickly. * Given last 3 BSGs > 250, will treat more aggressively by giving IV regular insulin bolus x 1 and also increase Novolog SQ doses * Continue BSG check at 0200 to allow for additional coverage until control improves * Dextrose containing IVF's are being stopped, expect improved glycemic control w/ this change 11/03/16 * Glycemic control improved after insulin adjustments made yesterday * She did experience an episode of mild hypoglycemia (BSG 68) pre-dinner yesterday, likely due to excess rapid acting insulin combined with a bolus of Regular insulin IV * BSGs did begin to rebound yesterday evening, however are back down to the mid- upper 100's. * Over the last 24 hrs pt received 42 units insulin. * Plan to adjust basal insulin dose upwards yet again based upon need for correctional insulin overnight (5 units correction given) and total daily insulin requirements of ~40 units/day with current diet. * Will also adjust the CF and CR of the Novolog order slightly given the BSG rise seen yesterday as the day progressed PLAN FOR INPATIENT GLYCEMIC CONTROL: * Increase Lantus to 10 units BID; give additional 1/2 dose (5 units) if BSG less than 110 * Correctional Insulin with NOVOLOG per scale ACHS only now that control has improved (no need for 0200 check) * Change goal range to Low 110 mg/dL - High 140 mg/dL * Change correction factor to 25 mg/dL/unit * Change carb ratio to 1 unit per 9 grams CHO consumed * Please note that the plan above was derived based on current level of insulin resistance and hospital stress. These recommendations are appropriate for inpatient admission only. Plan of care upon discharge will need to be reassessed to avoid potential outpatient hypo/hyperglycemia. Thank you.
[2016-11-03] MEDS: DILTIAZEM HCL 30 MG TAB PO SCH ×2 (15:01→19:16)
[2016-11-04] MEDS: DILTIAZEM HCL 30 MG TAB PO SCH ×2 (00:15→05:49)
[2016-11-04 03:41] VITALS: BP 110/69; PULSE 90; TEMP 37.3; O2SAT 97
[2016-11-04] MEDS: LEVOTHYROXINE 125 MCG TAB PO SCH (05:48)
[2016-11-04 06:08] LABS: HEMATOCRIT 34.7 % (37-47); MEAN CELL VOLUME 84.6 fL (80-100); MEAN CORPUSCULAR HEMOGLOBIN 29.5 pg (25-34); MEAN CORPUSCULAR HGB CONC 34.9 g/dl (32-36); PLATELET COUNT 197 K/uL (130-400); WHITE BLOOD COUNT 9.12 K/uL (4.8-10.8)
[2016-11-04 06:54] LABS: CREATININE 0.62 mg/dl (0.60-1.20)
[2016-11-04 07:38] VITALS: BP 112/64; PULSE 88; TEMP 36.8; O2SAT 95
[2016-11-04] MEDS: FERROUS GLUCONATE 324 MG TAB PO SCH (08:44)
[2016-11-04] MEDS: RANITIDINE HCL 150 MG TAB PO SCH (08:45)
[2016-11-04] MEDS: MULTIVITAMIN TAB PO SCH (08:46)
[2016-11-04] MEDS: ASPIRIN 81 MG CHEW PO SCH (09:00)
[2016-11-04] MEDS ORDERED: APIXABAN 2.5 MG TAB PO SCH (09:00)
[2016-11-04] MEDS: INSULIN ASPART 100 UNITS/ML 3 ML PEN SC SCH (09:03)
[2016-11-04] MEDS: OSELTAMIVIR PHOSPHATE SUSP 30 MG/5 ML UDP PO SCH (09:04)
[2016-11-04] MEDS: INSULIN GLARGINE SOLOSTAR 100 UNITS/ML 3 ML PEN SC SCH (09:05)
--- NOTE | 2016-11-04 09:58 | Family Medicine Progress Note ---
Progress Note Date of Service Nov 04, 2016. Subjective Pt evaluation today including: conversation w/ patient, physical exam, chart review, lab review, review of studies Pain: No pain reported today Voiding: no voiding problems Patient is an 86 year old female on hospital day 5 after admission for DKA. Patient currently doing well and no pain or discomfort reported today. Patient reports no palpitations or chest pain and wants to go home. Constitutional: No chills, No fatigue, No fever, No sweats, No weight loss Respiratory: No cough, No shortness of breath, No sputum, No wheezing Cardiovascular: No chest pain, No edema, No orthopnea Abdomen: No nausea, No pain, No vomiting Female : No dysuria, No urinary frequency Medications Current Inpatient Medications Medications (Trade) Dose Ordered Sig/Maryann Route Start Time Stop Time Status Last Admin Dose Admin Miscellaneous Information (Consult Glycemic Management Pharmacy) 1 ea UD PRN N/A 10/31/16 11:15 11/30/16 11:14 Aspirin (Aspirin Chew) 81 mg QAM PO 11/01/16 09:00 12/01/16 08:59 11/03/16 08:22 81 MG Ferrous Gluconate (Ferrous Gluconate Tab) 324 mg BIDM PO 10/31/16 16:30 11/30/16 17:59 11/04/16 08:44 324 MG Levothyroxine Sodium (Synthroid Tab) 125 mcg DAILYBB PO 11/01/16 06:00 12/01/16 05:59 11/04/16 05:48 125 MCG Ranitidine HCl (zANTac TAB) 150 mg BID PO 10/31/16 21:00 11/30/16 20:59 11/04/16 08:45 150 MG Acetaminophen (Tylenol Tab) 650 mg Q4H PRN PO 10/31/16 11:30 11/30/16 11:29 Al Hydrox/Mg Hydrox/Simethicone (Maalox Max Susp) 15 ml Q4H PRN PO 10/31/16 11:30 11/30/16 11:29 Magnesium Hydroxide (Milk Of Magnesia Susp) 30 ml Q12H PRN PO 10/31/16 11:30 11/30/16 11:29 Ondansetron HCl (Zofran Inj) 4 mg Q6H PRN IV 10/31/16 11:30 11/30/16 11:29 Nitroglycerin (Nitrostat Tab) 0.4 mg UD PRN SL 10/31/16 11:30 11/30/16 11:29 Polyethylene (Miralax Powder Packet) 17 gm DAILY PRN PO 10/31/16 11:30 11/30/16 11:29 Glucose (Glucose 40% Gel) UD PRN PO 10/31/16 11:45 11/30/16 11:44 Glucose (Glucose Chew Tab) 1 tabs UD PRN PO 10/31/16 11:45 11/30/16 11:44 Dextrose (Dextrose 50% 50ML Syringe) 50 ml UD PRN IV 10/31/16 11:45 11/30/16 11:44 Glucagon (Glucagon Inj) 1 mg UD PRN SQ 10/31/16 11:45 11/30/16 11:44 Oseltamivir Phosphate (Tamiflu Susp) 30 mg BID PO 11/01/16 20:00 11/04/16 23:59 11/04/16 09:04 30 MG Insulin Aspart (novoLOG ASPART) SLIDING SCALE ACHS SC 11/01/16 16:00 12/01/16 15:59 11/04/16 09:03 9 UNITS Multivitamins (Multivitamin Tab) 1 tab QAM PO 11/02/16 08:00 12/02/16 08:59 11/04/16 08:46 1 TAB Atenolol (Tenormin Tab) 100 mg QAM PO 11/03/16 08:00 12/03/16 07:59 11/04/16 08:46 100 MG Insulin Glargine (Lantus Solostar Pen) give 5 units if BSG l... BID SC 11/03/16 08:00 12/03/16 07:59 11/04/16 09:05 10 UNIT Metoprolol Tartrate (Lopressor Iv) 5 mg Q6 PRN IV 11/03/16 12:00 12/03/16 11:59 Diltiazem HCl (TIAzac CAP) 120 mg QAM PO 11/04/16 10:00 12/04/16 09:59 11/04/16 08:46 120 MG Apixaban (Eliquis Tab) 2.5 mg BID PO 11/04/16 09:00 12/04/16 08:59 11/04/16 08:45 2.5 MG Objective Vital Signs Date Time Temp Pulse Resp B/P Pulse Ox O2 Delivery O2 Flow Rate FiO2 11/04/16 07:38 36.8 88 18 112/64 95 Room Air 11/04/16 04:00 Room Air 97 11/04/16 03:41 37.3 90 20 110/69 97 Room Air 11/04/16 00:01 Room Air 95 11/03/16 23:39 36.8 88 20 125/63 95 Room Air 11/03/16 20:01 Room Air 11/03/16 19:56 37.0 97 18 133/81 93 Room Air 11/03/16 16:02 37.2 111 18 136/69 95 Room Air 11/03/16 16:00 Room Air 11/03/16 12:58 Room Air 11/03/16 11:21 37.0 99 16 111/79 98 Room Air 11/03/16 10:09 36.8 130 18 118/69 98 Room Air 11/03/16 10:09 36.9 140 18 95 Physical Exam General Appearance: WD/WN, no apparent distress Eyes: normal inspection, sclerae normal Neck: supple, no adenopathy Respiratory/Chest: chest non-tender, lungs clear, normal breath sounds Cardiovascular: no edema, no gallop, no murmur, + irregularly irregular Abdomen: normal bowel sounds, non tender, soft Neurologic/Psychiatric: alert, normal mood/affect, oriented x 3 Laboratory Results Results Past 24 Hours Test 11/03/16 10:45 11/03/16 11:26 11/03/16 16:08 11/03/16 19:59 Range/Units Troponin I 0.072 0-0.045 ng/ml Bedside Glucose 174 160 169 70-90 mg/dl Test 11/04/16 05:39 11/04/16 06:30 Range/Units White Blood Count 9.12 4.8-10.8 K/uL Red Blood Count 4.10 4.2-5.4 M/uL Hemoglobin 12.1 12.0-16.0 g/dL Hematocrit 34.7 37-47 % Mean Corpuscular Volume 84.6 80-100 fL Mean Corpuscular Hemoglobin 29.5 25-34 pg Mean Corpuscular Hemoglobin Concent 34.9 32-36 g/dl RDW Standard Deviation 41.9 36.4-46.3 fL RDW Coefficient of Variation 13.6 11.5-14.5 % Platelet Count 197 130-400 K/uL Mean Platelet Volume 10.0 7.4-10.4 fL Creatinine 0.62 0.60-1.20 mg/dl Est Creatinine Clear Calc Drug Dose 53.9 ml/min Estimated GFR () 94.6 Estimated GFR (Non- 81.6 Bedside Glucose 121 70-90 mg/dl Assessment and Plan Patient is an 86 year old female that presented yesterday with DKA 1) Atrial Fibrillation - Patient spontaneously presented with elevated HR and atrial fibrillation on Monday during current admission - No past history of atrial fibrillation - 100mg Atenolol - Diltiazem 120mg ER qAM - HR in 90s-100s today - Eliquis 2.5mg - Plan to discharge this afternoon 2) DKA 2/2 Acute Illness - Resolved - Anion Gap wnl - Surgars well controlled today - Lantus 10mg BID - Last HbA1c 11.7, Received diabetic education 4) Influenza B - Oseltamivir day 01/13 - No dosing of Tamiflu on discharge 5) Chest Pain - EKG in ED showed non specific ST changes - Chest Pain relieved with NTG - ECHO - 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
[2016-11-04] MEDS ORDERED: DILTIAZEM HCL 120 MG EXT REL CAP PO SCH (10:00)
[2016-11-04] MEDS ORDERED: TZCSR120 PO (10:51)
[2016-11-04] MEDS ORDERED: INSDGIPEN SC (10:51)
[2016-11-04] MEDS ORDERED: TNR50 PO (10:51)
[2016-11-04] MEDS ORDERED: ELQ25 PO (10:51)
--- NOTE | 2016-11-04 11:02 | Discharge Instructions ---
Discharge Instructions Admission Reason for Admission: DKA Discharge Discharge Diagnosis / Problem: Influenza, Diabetic ketoacidosis, acute renal failure, atrial fibrillation Discharge Goals Goal(s): Improve function, Improve disease control Activity Recommendations Activity Limitations: resume your previous activity Lifting Limitations: none Exercise/Sports Limitations: as tolerated May Resume Sexual Activity: when tolerated Shower/Bathe: no limitations Driving or Machine Use: no limitations . Instructions / Follow-Up Instructions / Follow-Up Medications: please refer to the list of medications that were stopped and those that are new and/or changed - ATENOLOL: please note that this was changed from 25mg twice a day to 100mg daily, please continue this dose at home, it was changed for heart rate control - DILTIAZEM: 120mg daily, added for better heart rate control with your atrial fibrillation, tolerating well - XARELTO: 20mg daily in the morning, start tomorrow, for stroke prevention with atrial fibrillation this medication will make you more prone to bleeding and bruising - LANTUS: dose INCREASED to 10 units twice a day, check your sugars in the morning when you wake up, if sugar is less than 120 then only take 5 units in the morning please continue to use Novolog with meals, per our recommendations you should use 1 unit for every 9 grams of carbohydrates consumed at meal time home nursing can help teach you how to count carbohydrates and cover your meals - NORVASC and LISINOPRIL were STOPPED because they are blood pressure medications, replaced by increased dose of ATENOLOL and DILTIAZEM. Problems: - Influenza: fully recovered, you received 5 days of Tamiflu in hospital, no further treatment needed - Diabetic ketoacidosis: resolved for several days after insulin drip. Your Lantus has been increased to 10 units twice a day. You need to follow up closely with your primary care doctor to discuss further care - Atrial fibrillation: new onset, your heart rates have been controlled on Atenolol and Diltiazem. Your echocardiogram was normal here in hospital. You have been started on Xarelto for stroke prevention. I have placed a referral for you to [facility] cardiology in the next 2-3 weeks for follow up and assuming care of this problem, visits 2-3 times per year FOLLOW UP - Dr. Lim: please call office for close follow up this week for hospital transition of care - [facility] Cardiology: referral for visit in 2-3 weeks, they should call you - Home nursing visits Current Hospital Diet Patient's current hospital diet: Diabetes Type 2 Diet, AHA Diet (Heart Healthy) Discharge Diet Recommended Diet: AHA Diet (Heart Healthy), Diabetes Type 2 Diet Procedures Procedures Performed: Echocardiogram: normal ejection fraction, normal valves Pending Studies Studies pending at discharge: no Laboratory Results Last Resulted CBC 11/04/16 05:39 Last Resulted BMP 11/03/16 05:51 11/04/16 05:39 Hemoglobin A1c Test 08/22/16 15:00 Range/Units Estimated Average Glucose 289 mg/dl Hemoglobin A1c 11.7 H 4.5-5.6 % Medical Emergencies . Who to Call and When: Medical Emergencies: If at any time you feel your situation is an emergency, please call 911 immediately. . Non-Emergent Contact Non-Emergency issues call your: Primary Care Provider Call Non-Emergent contact if: temperature is above 100.5, you have any medication questions . Past History Medical & Surgical History: (1) DKA (diabetic ketoacidosis) (2) Atrial fibrillation, new onset . "Provider Documentation" section prepared by Kalin Bah. VTE Core Measure Inpt VTE Proph given/why not?: Enoxaparin (Lovenox)SQ, Other Anticoagulation ( Eliquis) [place] Drug Monitoring Program Search Results: no issues identified
[2016-11-04 11:53] VITALS: BP 108/59; PULSE 88; TEMP 37; O2SAT 97
[2016-11-04] MEDS ORDERED: XRL20 PO (11:55)
--- NOTE | 2016-11-04 12:33 | Pharmacy Progress Note ---
Glycemic Control: Progress Nt Date of Service Nov 04, 2016. Scope Glycemic Pharmacist consulted by Dr Sol Bah on 10/31/16 for glycemic control and to write orders per [facility] inpatient glycemic control protocol. Objective Accuchecks BSG (last 24hrs): Test 11/03/16 16:08 11/03/16 19:59 11/04/16 06:30 11/04/16 11:09 Bedside Glucose 160 mg/dl (70-90) 169 mg/dl (70-90) 121 mg/dl (70-90) 188 mg/dl (70-90) Laboratory Data (last 24hrs) Test 11/04/16 05:39 Creatinine 0.62 mg/dl White Blood Count 9.12 K/uL HbA1c: 11.7% 08/22/16 Recent Pertinent Medications Outpatient Anti-diabetic Regimen: * Lantus 7-8 units Q PM * Novolog 4-6 units TID w/ meals * A1c = 11.7 % 08/22/16 The patient is currently receiving: * Basal insulin: Lantus 10 units SQ BID; give 1/2 dose if BSG less than 110 * Correctional Insulin ACHS * Goal Range: 110-140mg/dL * Correction factor: 25mg/dL * Prandial Insulin: 1 unit per 9 gm CHO consumed with meals Risk Factors for Insulin Resistance: * Infection: Influenza B; receiving Tamiflu * Diet: ordered T2DM/AHA diet; she had only been tolerating small amounts of CHO 's the last 2 days, however this appears to be improving now Assessment & Plan ASSESSMENT: 10/31/16 * Patient is an 86yo diabetic female who had not taken her insulin doses for ~4 days d/t illness with decreased appetite. * Patient admitted today with significant DKA: * BSG 774 mg/dL, AG 30 mmol/L, CO2 7 mmol/L, BHA 117 mg/dL, VBG pH 7.11, + 4 ketones in the urine * Patient was initiated on an IV insulin infusion in the ED, which will need to continue until DKA has resolved. * Pharmacy will continue to follow and aid in the transition to SQ insulin when appropriate. 11/01/16 * Insulin infusion continues this AM; AG acidosis resolved, however still somewhat acidotic (Bicarb -) but greatly improved. BSGs in the 100's low 200 's this AM. * She was ordered a diet this AM and tolerate a small breakfast. * Patient meets criteria for transition off insulin drip. Will begin basal/ bolus SQ regimen based upon outpt insulin doses and weight. Insulin infusion data may be misleading due to short duration of infusion, glucotoxicity and insulin resistance seen in DKA. 11/02/16 * Fasting BSG up to 308 this AM, clearly she is basal insulin deficient. She had 10 units of Lantus on board this AM * Pre-lunch BSG 282 following AM Lantus 10 units and 6 units of Novolog, most of which was correctional * Will increase the basal insulin dose, give a supplemental dose w/ lunch to obtain control more quickly. * Given last 3 BSGs > 250, will treat more aggressively by giving IV regular insulin bolus x 1 and also increase Novolog SQ doses * Continue BSG check at 0200 to allow for additional coverage until control improves * Dextrose containing IVF's are being stopped, expect improved glycemic control w/ this change 11/03/16 * Glycemic control improved after insulin adjustments made yesterday * She did experience an episode of mild hypoglycemia (BSG 68) pre-dinner yesterday, likely due to excess rapid acting insulin combined with a bolus of Regular insulin IV * BSGs did begin to rebound yesterday evening, however are back down to the mid- upper 100's. * Over the last 24 hrs pt received 42 units insulin. * Plan to adjust basal insulin dose upwards yet again based upon need for correctional insulin overnight (5 units correction given) and total daily insulin requirements of ~40 units/day with current diet. * Will also adjust the CF and CR of the Novolog order slightly given the BSG rise seen yesterday as the day progressed 11/04/16 * Glycemic control continues to improve * All BSGs over the last 24 hrs have been at or near goal * Fasting BSG 121 this AM with 20 units basal on board - will continue with the same; a half-dose parameter is in place to lessen risk hypoglycemia * Post-prandial BSGs controlled with current CR, although diet appears to be improving, will need to follow post-prandial BSG pattern PLAN FOR INPATIENT GLYCEMIC CONTROL: * Continue Lantus 10 units BID; give 1/2 dose (5 units) if BSG less than 110 * Correctional Insulin with NOVOLOG per scale ACHS * Continue goal range of Low 110 mg/dL - High 140 mg/dL * Continue correction factor of 25 mg/dL/unit * Continue carb ratio of 1 unit per 9 grams CHO consumed * Please note that the plan above was derived based on current level of insulin resistance and hospital stress. These recommendations are appropriate for inpatient admission only. Plan of care upon discharge will need to be reassessed to avoid potential outpatient hypo/hyperglycemia. Thank you.
[2016-11-04 15:37] VITALS: BP 107/70; PULSE 93; TEMP 36.6; O2SAT 96
[2016-11-04 16:29] VITALS: BP 107/70; PULSE 93; TEMP 36.6; O2SAT 96
--- NOTE | 2016-11-16 12:18 | Discharge Summary ---
Discharge Summary Date of Service Nov 16, 2016. 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 Medication Reconciliation New Medications: Rivaroxaban (Xarelto) 20 Mg Tab 20 MG PO DAILY, #30 TAB 3 Refills Atenolol (Atenolol) 50 Mg Tab 100 MG PO QAM, #60 TAB 3 Refills 50mg tablets, take 2 tabs every morning Diltiazem HCl (Taztia Xt) 120 Mg Capcr 120 MG PO QAM, #30 CAP 3 Refills Insulin Glargine (Lantus Solostar) 100 Unit/Ml Inj 10 UNIT SC BID for 30 Days, #1 BOX 3 Refills Continued Medications: Aspirin (Aspirin 81 Low Dose) 81 Mg Chw 81 MG PO DAILY Cholecalciferol (Vitamin D-3) 1,000 Unit Tab 1000 UNITS PO DAILY Cranberry (Vaccinium Macrocarp (Cranberry) 500 Mg Cap 500 MG PO DAILY Cyanocobalamin (Vitamin B-12) 1,000 Mcg Sub 1000 MCG PO DAILY Ferrous Gluconate (Ferrous Gluconate) 324 Mg Tab 324 MG PO BIDM for 30 Days, TAB Insulin Aspart (Novolog Flexpen) 100 Units/Ml Inj 4-6 UNITS SC TIDM Levothyroxine Sodium (Levothyroxine Sodium) 125 Mcg Tab 1 TAB PO DAILY for 90 Days, #90 TAB 3 Refills Multiple Vitamins W/ Minerals (Preservision Areds 2) 1 Cap Cap 1 CAP PO DAILY Ranitidine (Zantac) 150 Mg Tab 150 MG PO BID, TAB Discontinued Medications: Amlodipine (Norvasc) 10 Mg Tab 10 MG PO DAILY, TAB Atenolol (Atenolol) 25 Mg Tab 25 MG PO BID Insulin Glargine (Lantus Solostar) 100 Unit/Ml Inj 7-8 SC QPM, PEN Lisinopril (Lisinopril) 40 Mg Tab 40 MG PO DAILY Discharge Exam Patient was feeling quite well on day of discharge. Her HR was well controlled on Diltiazem and Atenolol. No chest pain or palpitations. Long discussion with patient and her children at the bedside in regards to discharge plans. Discussed the new diagnosis of atrial fibrillation and need for follow up with cardiology. Discussed new medications of Diltiazem, increased dose of Atenolol and the addition of Xarelto for stroke prevention. Also, discussed the addition of Lantus BID for better control of her glucose. Family working on getting the patient a talking glucometer since she has difficulty seeing her actual values on the screen. Review of Systems: Constitutional: No chills, No fatigue, No fever, No problem reported, No sweats, No weakness, No weight loss Eyes: + problem reported (poor vision, macular degeneration, at baseline), No diplopia, No discharge, No eye pain, No redness, No worsening of vision ENT: No dental problems, No hearing loss, No nasal symptoms, No problem reported, No sore throat, No tinnitus, No trouble swallowing, No unusual epistaxis Respiratory: + dyspnea on exertion (minimal, vastly improved), No cough, No dyspnea at rest, No hemoptysis, No problem reported, No shortness of breath, No sputum, No wheezing Cardiovascular: No PND, No chest pain, No claudication, No edema, No orthopnea, No palpitations, No problem reported Abdomen: No GI bleeding, No constipation, No diarrhea, No nausea, No pain, No problem reported, No vomiting Musculoskeletal: No calf pain, No joint pain, No muscle pain, No problem reported, No swelling Genitourinary - Female: No dysuria, No urinary frequency, No urinary incontinence, No urinary urgency Neurologic: No balance problems, No memory loss, No numbness/tingling, No paralysis, No problem reported, No vertigo, No weakness Psychiatric: No anhedonism, No anxiety, No depression symptoms, No insomnia , No problem reported, No substance abuse Endocrine: No excessive thirst, No excessive urination, No fatigue, No problem reported Hematologic / Lymphatic: No abnormal bleeding/bruising, No clotting problems , No night sweats, No problem reported, No swollen lymph nodes Integumentary: No bleeding, No color change, No itch, No new/changing skin lesions, No problem reported, No rash Physical Exam: General Appearance: no apparent distress, + thin Eyes: normal inspection, EOMI, sclerae normal ENT: normal ENT inspection, hearing grossly normal, pharynx normal Neck: supple, no adenopathy, no JVD, trachea midline Respiratory/Chest: chest non-tender, lungs clear, normal breath sounds, no respiratory distress, no accessory muscle use Cardiovascular: no edema, no gallop, no JVD, no murmur, normal peripheral pulses, + irregularly irregular Abdomen / GI: normal bowel sounds, non tender, soft, no organomegaly Extremities: normal inspection, no calf tenderness, normal capillary refill , no pedal edema, normal range of motion, pelvis stable Neurologic/Psychiatric: 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 Tested positive for Influenza B and treated for 5 days with Tamiflu. This infection likely triggered the DKA. Ketoacidosis halted with insulin drip and after 36 hours she was converted to Lantus and Novolog, eating well. She was transferred to the floor from the ICU. The next afternoon the RN notified me that her HR was irregular and fast on routine vitals check. At the bedside she indeed was irregular irregular, EKG showed atrial fibrillation with HR in the 120's. She had no chest pain or palpitations , resting comfortably and even later she walked with PT without any problems. Chose to increase her Atenolol and started on Lovenox for anticoagulation. The next morning she remained in afib with HR 120's still but repeat EKG showed some ST depressions in lateral leads so she was moved to telemetry, troponin negative. HR control was achieved with the addition of Diltiazem 30mg q6 and Atenolol 100mg daily. The next day she was changed to Diltiazem 120mg daily and HR and BP tolerated well. She was cleared to return home with home health and family agreed with her plans for discharge. - DKA: sugars 700's, HCO3 7, anion gap 30, beta-hydroxybutyrate 117 on admission NSS at 150cc/hr, insulin infusion initially anion gap closed on 11/01, transitioned off of insulin gtt and on basal bolus regimen pharmacy adjusting insulin regimen, Lantus 10 units BID discussed plans with patient and family members home situation not ideal because patient's vision is poor, she typically listens to the clicks to know how much insulin she is giving she does not count carbohydrates for meal coverage and no interest in learning to do this d/c home on Lantus, she will continue her meal Novolog but not specific coverage, follow up with PCP family working on getting her a talking glucometer - Atrial fibrillation: new onset, likely due to stress of DKA and influenza HR control achieved with Atenolol 100mg daily and Diltiazem 120mg daily echocardiogram from earlier in admission showed preserved EF, no significant valve disease anticoagulated with Xarelto since it was $0 copay, looked into Eliquis but it was too expensive - Influenza B: received Tamiflu x 5 days, breathing stable, no hypoxia, no further treatment needed - LISSETT: due to dehydration and volume depletion with the DKA resolved with IV fluids, held nephrotoxins, excellent UO - Hypertension: please note that Norvasc and Lisinopril were stopped due to the increase in Atenolol and addition of Diltiazem if BP elevated in office certainly could consider adding back one of the above agents Total Time Spent: Greater than 30 minutes This includes examination of the patient, discharge planning, medication reconciliation, and communication with other providers. Discharge Instructions Please refer to the electronic Patient Visit Report (Discharge Instructions) for additional information. Follow-Up Dr. Burks in one week Cardiology in 2-3 weeks for new patient visit due to the atrial fibrillation Additional Copies To Gautam Mayen MD; Jose Burks M.D.
[2017-02-23] MEDS ORDERED: LEVO125T4 PO (09:04)
== END 2016-11-04 17:00 | disposition home health service (06) | DRG 193 ==
LOC: CANRESERV → ENRESERVDT → ENRESERVTM → EDBD 08:15 → C.EDA 08:16 → UNDOADMIN 11:24 → C.MSICU 11:24 → C.4E 11-01 17:58 → C.2E 11-03 10:56 → C.2T 11-03 22:30
PROVIDERS: ADMIT Internal Medicine; ATTEND Internal Medicine
DX: J10.1 Influenza due to other identified influenza virus with other respiratory manifestations (principal); E13.10 Other specified diabetes mellitus with ketoacidosis without coma; N17.9 Acute kidney failure, unspecified; J40 Bronchitis, not specified as acute or chronic; E11.65 Type 2 diabetes mellitus with hyperglycemia; R07.9 Chest pain, unspecified; I48.91 Unspecified atrial fibrillation; I12.9 Hypertensive chronic kidney disease with stage 1 through stage 4 chronic kidney disease, or unspecified chronic kidney disease; E11.22 Type 2 diabetes mellitus with diabetic chronic kidney disease; N18.3 Chronic kidney disease, stage 3 (moderate); E83.39 Other disorders of phosphorus metabolism; K21.9 Gastro-esophageal reflux disease without esophagitis; E03.9 Hypothyroidism, unspecified; E61.1 Iron deficiency; E11.319 Type 2 diabetes mellitus with unspecified diabetic retinopathy without macular edema; H35.30 Unspecified macular degeneration; Z87.891 Personal history of nicotine dependence; Z79.4 Long term (current) use of insulin; Z79.82 Long term (current) use of aspirin; Z79.899 Other long term (current) drug therapy; Z83.3 Family history of diabetes mellitus; Z82.49 Family history of ischemic heart disease and other diseases of the circulatory system

== ENCOUNTER → 2016-11-18 | Outpatient (CLI) | payer OTHER ==
[~2016-11-18] MED LIST changes: -AMLO-114 PO; +CHOL1TAB2 PO; -CLC100 PO; +CRAN500C2 PO; +CYAN100020 PO; +DILT120C68 PO; +FERR1TAB23 PO; +INSDGIPEN SC; -INSUINJ4 SQ; -LEVO112T2 PO; +LEVO125T4 PO; -LSN40 PO; +MULT60CA PO; +NVLGI/PEN SC; +RANI150T2 PO; +RIVA1TAB4 PO; -TNR25 PO; +TNR50 PO; +TZCSR120 PO; +XRL20 PO
[2016-11-18 12:33] LABS: HEMATOCRIT 38.4 % (37-47); MEAN CELL VOLUME 91.6 fL (80-100); MEAN CORPUSCULAR HEMOGLOBIN 30.1 pg (25-34); MEAN CORPUSCULAR HGB CONC 32.8 g/dl (32-36); PLATELET COUNT 330 K/uL (130-400); RED BLOOD COUNT 4.19 M/uL (4.2-5.4); WHITE BLOOD COUNT 8.79 K/uL (4.8-10.8)
[2016-11-18 12:41] LABS: BLOOD UREA NITROGEN 19 mg/dl (7-18); BUN/CREATININE RATIO 17.3 (10-20); CALCIUM 8.9 mg/dl (8.5-10.1); CARBON DIOXIDE 23 mmol/L (21-32); CHLORIDE 106 mmol/L (98-107); GLUCOSE 162 mg/dl (70-99); POTASSIUM 4.4 mmol/L (3.5-5.1); SODIUM 139 mmol/L (136-145)
== END | disposition home or self-care (01) ==
LOC: C.LABPVFM 09:58
PROVIDERS: ATTEND Family Medicine
DX: I10 Essential (primary) hypertension (principal); E03.9 Hypothyroidism, unspecified; D50.9 Iron deficiency anemia, unspecified

== ENCOUNTER 2017-02-16 17:45 | Emergency (ER) | payer OTHER ==
[~2017-02-16] VITALS: Ht 160 cm; Wt 55.3 kg
[~2017-02-16 17:45] MED LIST changes: -CHOL1TAB2 PO; -CRAN500C2 PO; -CYAN100020 PO; -DILT120C68 PO; -FERR1TAB23 PO; -LEVO125T4 PO; -MULT60CA PO; -NVLGI/PEN SC; -RANI150T2 PO; -RIVA1TAB4 PO
[2017-02-16 17:51] VITALS: TEMP 36.7; Ht 160 cm; Wt 55.3 kg
[2017-02-16] MEDS ORDERED: OXYMETAZOLINE HCL 0.05% NA SPR 15 ML BTL ONE (17:57)
[2017-02-16] MEDS ORDERED: LIDOCAINE 4% W/AFRIN NASAL SOLN 4ML EXT STA (18:07)
[2017-02-16 19:19] VITALS: BP 168/100; PULSE 82; O2SAT 95
--- NOTE | 2017-02-16 22:03 | EMERGENCY ROOM VISIT NOTE ---
History Report prepared by Ermias: Chrissie Guadalupe Under the Supervision of: Dr. Garrett Santiago M.D. 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 The nosebleed began suddenly. She is on Xarelto and aspirin for A fib. She believes she had a polyp in her nose which broke off. She has not seen ENT for polyps before. The blood was dripping down the back of throat previously. She does not think it is dripping down anymore. She was feeling well before this happened. 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 Review of Systems See HPI for pertinent positives & negatives. A total of 10 systems reviewed and were otherwise negative. Past Medical & Surgical Medical Problems: (1) Atrial fibrillation, new onset (2) Diabetes (3) DKA (diabetic ketoacidosis) (4) HTN (hypertension) (5) Macular degeneration Family History Diabetes mellitus Hypertension Social History Smoking Status: Never Smoker Alcohol Use: none Drug Use: none Occupation Status: retired Current/Historical Medications Scheduled Aspirin (Aspirin 81 Low Dose), 81 MG PO DAILY Atenolol (Atenolol), 100 MG PO QAM Cholecalciferol (Vitamin D-3), 1,000 UNITS PO DAILY Cranberry (Vaccinium Macrocarp (Cranberry), 500 MG PO DAILY Cyanocobalamin (Vitamin B-12), 1,000 MCG PO DAILY Diltiazem HCl (Taztia Xt), 120 MG PO QAM Insulin Aspart (Novolog Flexpen), 4-6 UNITS SC TIDM Insulin Glargine (Lantus Solostar), 10-12 UNITS SC QPM Levothyroxine Sodium (Levothyroxine Sodium), 1 TAB PO DAILY Multiple Vitamins W/ Minerals (Preservision Areds 2), 1 CAP PO DAILY Ranitidine (Zantac), 150 MG PO BID Rivaroxaban (Xarelto), 20 MG PO DAILY Allergies Coded Allergies: No Known Allergies (Unverified , 02/16/17) Physical Exam Vital Signs Date Time Temp Pulse Resp B/P (MAP) Pulse Ox O2 Delivery O2 Flow Rate FiO2 02/16/17 19:19 82 18 168/100 95 02/16/17 18:10 91 02/16/17 17:51 36.7 100 18 157/83 97 Room Air Physical Exam GENERAL: Patient is a healthy-appearing well-nourished HEAD: Normocephalic atraumatic. Diffuse bleeding from the right naris, running down the back of oropharynx. EYES: Ocular movements intact pupils equal and react to light OROPHARYNX: mucous membranes are moist no exudates present no erythema or edema present NECK: Supple no nuchal rigidity CHEST: Good equal expansion LUNGS: Clear and equal to auscultation CARDIAC: Normal S1 and S2 ABDOMEN: Soft nontender no guarding BACK: No CVA tenderness EXTREMITIES: No pain upon palpation normal muscle strength in all groups no clubbing cyanosis or edema NEURO: Patient is following commands is answering questions appropriately. Alert and oriented x3 Cranial Nerves 2-12 grossly intact Medical Decision & Procedures ED Course 175: Afrin 0.05% Nasal [place]. 1806: Lidocaine HCl 4 ml EXT. 180: Past medical records reviewed. The patient was evaluated in room C7. A complete history and physical examination was performed. 185: Upon reexamination the patient is doing better. I discussed results and treatment plan with the patient. She verbalizes agreement and understanding. The patient is ready for discharge. Medical Decision Differential diagnosis: Etiologies such as anterior epistaxis, coagulopathy, traumatic injury, fracture , septal hematoma, posterior epistaxis as well as other pathologies were entertained. Medication Reconciliation: I attest that I have personally reviewed the patient' s current medication list Blood Pressure Screening: Patient was found to have an elevated blood pressure and was referred to their primary care doctor for recheck and further treatment This is an 87-year-old female who presents to the emergency department complaining of epistaxis. I attempted this conservatively stop the patient's bleeding by using tissues and Afrin however this was unsuccessful. At this point I attempted a Rhino Rocket without any success. My next step was to try flakes which were successful in stopping the bleeding. The patient was observed in the emergency department for an hour and the bleeding remained under control. I believe based on this finding that the patient can be safely discharged home. I recommend she not blow her nose. Impression Primary Impression: HTN (hypertension) Scribe Attestation The scribe's documentation has been prepared under my direction and personally reviewed by me in its entirety. I confirm that the note above accurately reflects all work, treatment, procedures, and medical decision making performed by me. Departure Information Dispostion Home / Self-Care Referrals Jose Burks M.D. (PCP) Forms HOME CARE DOCUMENTATION FORM, IMPORTANT VISIT INFORMATION, WORK / SCHOOL INSTRUCTIONS Patient Instructions ED Nosebleed, Hypertension Dc, My [facility] Additional Instructions Hold Xarelto tomorrow, resume next day You were found to have an elevated blood pressure today (>120 sytolic or >90 diastolic). Per medicare guidelines, you need to follow up with this blood pressure screening with your Primary Care Physician (PCP). For a new PCP call [phone]. You have been examined and treated today on an emergency basis only. This is not a substitute for, or an effort to provide, complete comprehensive medical care. It is impossible to recognize and treat all injuries or illnesses in a single emergency department visit. It is therefore important that you follow up closely with Dr burks. Call as soon as possible for an appointment. Thank you for your time and consideration. I look forward to speaking with you again soon. Please don't hesitate to call us if you have any questions. Problem Qualifiers Primary Impression: HTN (hypertension) Hypertension type: unspecified secondary hypertension Qualified Codes: I15.9 - Secondary hypertension, unspecified
== END 2017-02-16 19:21 | disposition home or self-care (01) ==
LOC: C.EDB 17:46 → C.EDC 19:21
DX: I15.9 Secondary hypertension, unspecified (principal); R04.0 Epistaxis; I48.91 Unspecified atrial fibrillation; I10 Essential (primary) hypertension; E11.9 Type 2 diabetes mellitus without complications; Z79.01 Long term (current) use of anticoagulants; Z79.82 Long term (current) use of aspirin; Z79.4 Long term (current) use of insulin; Z79.899 Other long term (current) drug therapy; Z82.49 Family history of ischemic heart disease and other diseases of the circulatory system; Z83.3 Family history of diabetes mellitus

== ENCOUNTER → 2017-02-21 | Outpatient (CLI) | payer OTHER ==
[~2017-02-21] MED LIST changes: +CHOL1TAB2 PO; +CRAN500C2 PO; +CYAN100020 PO; +DILT120C68 PO; +FERR1TAB23 PO; -FRRG PO; +LEVO125T5 PO; +MULT60CA PO; +NVLGI/PEN SC; +RANI150T2 PO; +RIVA1TAB4 PO
[2017-02-21 18:41] LABS: BLOOD UREA NITROGEN 23 mg/dl (7-18); BUN/CREATININE RATIO 20.8 (10-20); CARBON DIOXIDE 24 mmol/L (21-32); CHLORIDE 104 mmol/L (98-107); GLUCOSE 137 mg/dl (70-99); SODIUM 140 mmol/L (136-145)
[2017-02-21 19:05] LABS: CALCIUM 8.9 mg/dl (8.5-10.1)
[2017-02-22 06:06] LABS: ESTIMATED AVERAGE GLUCOSE 203 mg/dl; HA1C FLAG Normal (Normal)
== END | disposition home or self-care (01) ==
LOC: C.LABPVFM 11:56
PROVIDERS: ATTEND Family Medicine
DX: E11.39 Type 2 diabetes mellitus with other diabetic ophthalmic complication (principal)

== ENCOUNTER 2017-02-23 07:21 | Emergency (ER) | payer OTHER ==
[~2017-02-23 07:21] MED LIST changes: -CHOL1TAB2 PO; -CRAN500C2 PO; -CYAN100020 PO; -DILT120C68 PO; -FERR1TAB23 PO; -INSDGIPEN SC; -LEVO125T5 PO; -MULT60CA PO; -NVLGI/PEN SC; -RANI150T2 PO; -RIVA1TAB4 PO
[2017-02-23 07:26] VITALS: TEMP 37.1; Ht 160 cm
[2017-02-23] MEDS ORDERED: OXYMETAZOLINE HCL 0.05% NA SPR 15 ML BTL ONE (07:26)
[2017-02-23] MEDS ORDERED: LIDOCAINE 4% W/AFRIN NASAL SOLN 4ML EXT STA (07:27)
--- NOTE | 2017-02-23 08:02 | EMERGENCY ROOM VISIT NOTE ---
History Report prepared by Ermias: Libra Fish Under the Supervision of: Dr. Garrett Santiago M.D. 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 The patient came to the ED via ambulance. She was seen in the ED 1 week ago for the same symptoms. At that time, the bleeding was stopped with flakes. The patient's daughter states that the bleeding was controlled with the packing that the patient left with last week. The patient has not seen ENT but she did see her PCP. The patient's PCP took her off of aspirin. She is still on Xarelto. She denies blowing her nose prior to the epistaxis starting. She also denies taking her morning medications including her Xarelto. 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 A total of 10 systems reviewed and were otherwise negative. Past Medical & Surgical Medical Problems: (1) Atrial fibrillation, new onset (2) Diabetes (3) DKA (diabetic ketoacidosis) (4) HTN (hypertension) (5) Macular degeneration Family History Diabetes mellitus Hypertension Social History Smoking Status: Former Smoker Alcohol Use: none Drug Use: none Occupation Status: retired Current/Historical Medications Scheduled Atenolol (Atenolol), 100 MG PO QAM Cholecalciferol (Vitamin D-3), 1,000 INTER.UNIT PO DAILY Cranberry (Vaccinium Macrocarp (Cranberry), 500 MG PO DAILY Cyanocobalamin (Vitamin B12), 1,000 MCG PO DAILY Diltiazem Hcl Ext Rel (Tiazac), 120 MG PO QAM Insulin Aspart (Novolog Flexpen), 2-6 UNITS SC TIDM Insulin Glargine (Lantus Solostar), 10-12 UNITS SC QPM Levothyroxine Sodium (Levothyroxine Sodium), 125 MCG PO DAILY Multiple Vitamins W/ Minerals (Preservision Areds 2), 1 CAP PO DAILY Ranitidine HCl (Ranitidine HCl), 150 MG PO BID Rivaroxaban (Xarelto), 20 MG PO QAM Allergies Coded Allergies: No Known Allergies (Unverified , 02/23/17) Physical Exam Vital Signs Date Time Temp Pulse Resp B/P (MAP) Pulse Ox O2 Delivery O2 Flow Rate FiO2 02/23/17 09:25 98 16 168/106 96 02/23/17 08:04 100 16 155/104 96 Room Air 02/23/17 07:26 37.1 104 20 139/104 96 Room Air Physical Exam GENERAL: Patient is a healthy-appearing well-nourished female HEAD: Normocephalic atraumatic EYES: Ocular movements intact pupils equal and react to light NOSE: Area of bleeding in right nares, there does not appear to be a posterior bleed OROPHARYNX mucous membranes are moist no exudates present no erythema or edema present NECK: Supple no nuchal rigidity CHEST: Good equal expansion LUNGS: Clear and equal to auscultation CARDIAC: Normal S1 and S2 ABDOMEN: Soft nontender no guarding BACK: No CVA tenderness EXTREMITIES: No pain upon palpation normal muscle strength in all groups no clubbing cyanosis or edema NEURO: Patient is following commands and answering questions appropriately. Alert and oriented x3 Cranial Nerves 2-12 grossly intact Medical Decision & Procedures Medications Administered Medications (Trade) Dose Ordered Sig/Maryann Route Start Time Stop Time Status Last Admin Dose Admin Lidocaine HCl (Afrin W/ Lidocaine 4%) 4 ml NOW STAT EXT 02/23/17 07:27 02/23/17 07:28 DC 02/23/17 08:08 4 ML ED Course 0727: Ordered Lidocaine HCl 4 ml EXT 0728: The medical student evaluated the patient at this time. We discussed his findings and potential treatment plans. 0742: Past medical records reviewed. The patient was evaluated in room B2. A complete history and physical examination was performed. 0823: Upon reexamination the patient is doing well. I discussed results and treatment plan with the patient. She verbalizes agreement and understanding. The patient is ready for discharge. Medical Decision Differential diagnosis: Etiologies such as anterior epistaxis, coagulopathy, traumatic injury, fracture , septal hematoma, posterior epistaxis as well as other pathologies were entertained. Medication Reconciliation: I attest that I have personally reviewed the patient' s current medication list Blood Pressure Screening: Patient was found to have an elevated blood pressure and was referred to their primary care doctor for recheck and further treatment This is an 87-year-old female who presents emergency Department with a nosebleed. Patient is also told toe and has not taken her medication this morning. The nosebleed was stopped as above. She was observed in the emergency department for a period of time and no rebleeding occurred. Based on these findings and believe the patient can be discharged follow-up with your nose and throat. Patient and family were in agreement with treatment plan. Impression Primary Impression: Epistaxis Scribe Attestation The scribe's documentation has been prepared under my direction and personally reviewed by me in its entirety. I confirm that the note above accurately reflects all work, treatment, procedures, and medical decision making performed by me. Departure Information Dispostion Home / Self-Care Referrals Jose Burks M.D. (PCP) Forms HOME CARE DOCUMENTATION FORM, IMPORTANT VISIT INFORMATION, WORK / SCHOOL INSTRUCTIONS Patient Instructions ED Nasal Packing Anterior Removable, ED Nosebleed, My [facility] [employer] Additional Instructions Hold Xarelto for 24 hours Remove packing in 48 hours Follow up with Dr Justice's office You were found to have an elevated blood pressure today (>120 sytolic or >90 diastolic). Per medicare guidelines, you need to follow up with this blood pressure screening with your Primary Care Physician (PCP). For a new PCP call [phone]. You have been examined and treated today on an emergency basis only. This is not a substitute for, or an effort to provide, complete comprehensive medical care. It is impossible to recognize and treat all injuries or illnesses in a single emergency department visit. It is therefore important that you follow up closely with Jeanne Burks. Call as soon as possible for an appointment. Thank you for your time and consideration. I look forward to speaking with you again soon. Please don't hesitate to call us if you have any questions.
[2017-02-23] MEDS ORDERED: LEVO125T5 PO (09:04)
[2017-02-23 09:25] VITALS: BP 168/106; PULSE 98; O2SAT 96
[2017-02-23] MEDS ORDERED: INSDGIPEN SC (18:58)
[2017-02-23] MEDS ORDERED: RANI150T2 PO (19:19)
[2017-02-23] MEDS ORDERED: DILT120C68 PO (19:19)
[2017-02-23] MEDS ORDERED: CYAN100020 PO (19:19)
[2017-02-23] MEDS ORDERED: TNR50 PO (19:19)
[2017-02-23] MEDS ORDERED: RIVA1TAB4 PO (19:19)
[2017-02-23] MEDS ORDERED: NVLGI/PEN SC (19:19)
[2017-02-23] MEDS ORDERED: CHOL1TAB2 PO (19:31)
[2017-02-23] MEDS ORDERED: CRAN500C2 PO (19:31)
[2017-02-23] MEDS ORDERED: MULT60CA PO (19:31)
== END 2017-02-23 09:25 | disposition home or self-care (01) ==
LOC: EDBD 07:21 → C.EDB 07:22
DX: R04.0 Epistaxis (principal); I48.91 Unspecified atrial fibrillation; I10 Essential (primary) hypertension; E11.9 Type 2 diabetes mellitus without complications; Z87.891 Personal history of nicotine dependence; Z79.4 Long term (current) use of insulin; Z79.899 Other long term (current) drug therapy; Z83.3 Family history of diabetes mellitus; Z82.49 Family history of ischemic heart disease and other diseases of the circulatory system; E04.0 Nontoxic diffuse goiter; H35.30 Unspecified macular degeneration

== ENCOUNTER 2017-02-23 18:36 | Emergency (ER) | payer OTHER ==
[~2017-02-23] VITALS: Ht 160 cm; Wt 57.0 kg
[~2017-02-23 18:36] MED LIST changes: +LEVO125T5 PO
[2017-02-23 18:43] VITALS: TEMP 36.8; Ht 160 cm; Wt 57.0 kg
[2017-02-23] MEDS ORDERED: INSDGIPEN SC (18:58)
[2017-02-23] MEDS ORDERED: OXYMETAZOLINE HCL 0.05% NA SPR 15 ML BTL STA (19:16)
[2017-02-23] MEDS ORDERED: CYAN100020 PO (19:19)
[2017-02-23] MEDS ORDERED: RIVA1TAB4 PO (19:19)
[2017-02-23] MEDS ORDERED: RANI150T2 PO (19:19)
[2017-02-23] MEDS ORDERED: TNR50 PO (19:19)
[2017-02-23] MEDS ORDERED: DILT120C68 PO (19:19)
[2017-02-23] MEDS ORDERED: NVLGI/PEN SC (19:19)
[2017-02-23] MEDS ORDERED: CHOL1TAB2 PO (19:31)
[2017-02-23] MEDS ORDERED: MULT60CA PO (19:31)
[2017-02-23] MEDS ORDERED: CRAN500C2 PO (19:31)
--- NOTE | 2017-02-23 20:23 | EMERGENCY ROOM VISIT NOTE ---
History First contact with patient: 18:47 Chief Complaint: NOSE BLEED (MINOR) Stated Complaint: PACKING IS LEAKING FROM NOSE BLEED History of Present Illness The patient is a 87 year old female who presents to the Emergency Room via private vehicle accompanied by son with complaints of "packing is leaking from nosebleed". The patient states that over the past few weeks she has been experiencing nosebleeds, and states that she was seen earlier in the day. At that time packing was placed in the right nostril and she was doing well until at home she notes blood began to drip from the right nostril. She then returned here for further evaluation and management. She notes no new trauma, pain but is on Xarelto for atrial fibrillation. Review of Systems A complete 6-point Review of Systems was discussed with the patient, with pertinent positives and negatives listed in the History of Present Illness. All remaining Review of Systems questions can be considered negative unless otherwise specified. Past Medical/Surgical History Medical Problems: (1) Atrial fibrillation, new onset (2) Diabetes (3) DKA (diabetic ketoacidosis) (4) HTN (hypertension) (5) Macular degeneration Family History Diabetes mellitus Hypertension Social History Smoking Status: Former Smoker Alcohol Use: none Drug Use: none Occupation Status: retired Current/Historical Medications Scheduled Atenolol (Atenolol), 100 MG PO QAM Cholecalciferol (Vitamin D-3), 1,000 INTER.UNIT PO DAILY Cranberry (Vaccinium Macrocarp (Cranberry), 500 MG PO DAILY Cyanocobalamin (Vitamin B12), 1,000 MCG PO DAILY Diltiazem Hcl Ext Rel (Tiazac), 120 MG PO QAM Insulin Aspart (Novolog Flexpen), 2-6 UNITS SC TIDM Insulin Glargine (Lantus Solostar), 10-12 UNITS SC QPM Levothyroxine Sodium (Levothyroxine Sodium), 125 MCG PO DAILY Multiple Vitamins W/ Minerals (Preservision Areds 2), 1 CAP PO DAILY Ranitidine HCl (Ranitidine HCl), 150 MG PO BID Rivaroxaban (Xarelto), 20 MG PO QAM Allergies Coded Allergies: No Known Allergies (Unverified , 02/23/17) Physical Exam Vital Signs Date Time Temp Pulse Resp B/P (MAP) Pulse Ox O2 Delivery O2 Flow Rate FiO2 02/23/17 21:13 82 16 132/70 95 02/23/17 18:43 36.8 86 17 120/64 98 Room Air 02/23/17 18:38 36.8 86 17 120/64 98 Room Air Physical Exam VITAL SIGNS - Vital signs and nursing notes were reviewed. Patient is afebrile , normotensive, non-tachycardic and is saturating well on room air. GENERAL -87-year-old female appearing her stated age who is in no acute distress. Communicates well with provider and answers questions appropriately. SKIN - Without rashes. No breaks in the integument. HEAD - NC/AT. NOSE - Midline and without cyanosis. No epistaxis or purulent drainage noted. Septum midline without deviation or septal hematoma noted. There is packing in the right nostril, and once removed there is no evidence of active bleeding. MOUTH/OROPHARYNX - Without perioral cyanosis. Buccal mucosa pink and moist and without leukoplakia. Tongue midline with equal elevation of palate bilaterally. No tonsillar hypertrophy, erythema, or exudates noted. Fair dentition noted. There is no blood in the posterior pharynx. Medical Decision & Procedures Medications Administered Medications (Trade) Dose Ordered Sig/Maryann Route Start Time Stop Time Status Last Admin Dose Admin Oxymetazoline HCl (Afrin 0.05% Nasal [place]) 1 sprays NOW STAT NA 02/23/17 19:16 02/23/17 19:17 DC 02/23/17 19:22 1 SPRAYS Medical Decision Patient was seen and evaluated as above. Obese visit was reviewed. Patient was recently here for epistaxis of which she is been experiencing multiple times over the past few weeks. The packing in the nose was removed, no bleeding was noted. Afrin was sprayed in the nostril, nose clamp was applied. She is reevaluated after period of time and no bleeding was noted. The clamp was removed, and the patient was observed for approximately 20 minutes. No rebleeding was noted. I was unable to identify any bleeding vessels in the nostril. Is no evidence of posterior epistaxis. The patient was provided referral information for near nose and throat doctor earlier today. She is to call them tomorrow. We recommend that she stop her hold her Xarelto for 1 more day. She is to resume her normal medications. She is to return with worsening. She was given the Afrin bottle as well as the nose clamp if she is to develop nosebleeds at home. She was instructed upon management. She was educated upon worrisome symptoms which to return, had questions about discharge , and was discharged home in good condition. Case was discussed with my attending, who also personally evaluated the patient. In evaluation treatment this patient following differential diagnoses were entertained: Epistaxis, supratherapeutic anticoagulation, trauma, among others. Impression Primary Impression: Epistaxis Departure Information Dispostion Home / Self-Care Condition GOOD Referrals Jose Burks M.D. (PCP) Patient Instructions My [facility] Additional Instructions You have been treated in the Emergency Department today for your Nose Bleed ( Epistaxis). Do NOT blow your nose for the next few days. This can result in recurrence of your nosebleed. You should consider using a humidifier to help moisten the air and decrease instances of nosebleeds. You can use [id number] saline nasal sprays to help moisten the nasal mucosa and decrease instances of nosebleeds. You may use the Afrin nasal spray if you develop a nosebleed and use the nasal clamp 15 minutes. If this persists please return. Please hold her Xarelto for more dose.. As with any trip to the Emergency Department, you should follow-up with your Primary Care Provider from today's visit. Return to the emergency department if your symptoms persist despite treatment plan outlined above or if the following symptoms occur: uncontrollable nosebleed , dizziness, lightheadedness, pre-syncope, or re-bleed. Please return to the emergency department with any new/concerning symptoms.
[2017-02-23 21:13] VITALS: BP 132/70; PULSE 82; O2SAT 95
== END 2017-02-23 21:14 | disposition home or self-care (01) ==
LOC: C.EDB 18:37 → C.EDD 21:14
DX: E04.0 Nontoxic diffuse goiter (principal); I48.91 Unspecified atrial fibrillation; E11.9 Type 2 diabetes mellitus without complications; I10 Essential (primary) hypertension; H35.30 Unspecified macular degeneration; Z83.3 Family history of diabetes mellitus; Z82.49 Family history of ischemic heart disease and other diseases of the circulatory system; Z87.891 Personal history of nicotine dependence; Z79.4 Long term (current) use of insulin

== ENCOUNTER → 2017-02-28 | Outpatient (CLI) | payer OTHER ==
[~2017-02-28] MED LIST changes: -ASPI1CHW12 PO; +CHOL1TAB2 PO; +CRAN500C2 PO; +CYAN100020 PO; -CYAN100048 PO; +DILT120C68 PO; +FERR1TAB23 PO; +INSDGIPEN SC; +MULT60CA PO; +NVLGI/PEN SC; -NVLGIPEN SC; +RANI150T2 PO; +RIVA1TAB4 PO; -TZCSR120 PO; -XRL20 PO; -ZNTT/150 PO
[2017-02-28 13:18] LABS: BASO % 0.3 %; BASO ABS # 0.04 K/uL (0-0.2); COMPLETE YES; EOS % 0.2 %; HEMATOCRIT 35.4 % (37-47); IG% 0.6 %; LYMPH % 8.6 %; LYMPH ABS # 1.07 K/uL (1.2-3.4); MEAN CELL VOLUME 85.9 fL (80-100); MEAN CORPUSCULAR HGB CONC 29.1 g/dl (32-36); MEAN PLATELET VOLUME 9.7 fL (7.4-10.4); MONO % 5.6 %; NEUT % 84.7 %; PLATELET COUNT 340 K/uL (130-400); RED BLOOD COUNT 4.12 M/uL (4.2-5.4); WHITE BLOOD COUNT 12.37 K/uL (4.8-10.8)
== END | disposition home or self-care (01) ==
LOC: C.LABPVFM 09:02
PROVIDERS: ATTEND Family Medicine
DX: R42 Dizziness and giddiness (principal)

== ENCOUNTER 2017-03-19 09:38 | Emergency (ER) | payer OTHER ==
[~2017-03-19] VITALS: Ht 160 cm; Wt 56.0 kg
[~2017-03-19 09:38] MED LIST changes: -FERR1TAB23 PO; +LEVO125T4 PO; -LEVO125T5 PO
[2017-03-19 09:48] VITALS: TEMP 36.6; Ht 160 cm; Wt 56.0 kg
[2017-03-19] MEDS ORDERED: OXYMETAZOLINE HCL 0.05% NA SPR 15 ML BTL ONE (09:53)
[2017-03-19] MEDS ORDERED: FERR1TAB23 PO (10:11)
[2017-03-19] MEDS ORDERED: SILVER NITR/POTASSIUM NITRATE 10 APPLICATOR PACK ONE (10:35)
--- NOTE | 2017-03-19 11:57 | EMERGENCY ROOM VISIT NOTE ---
History Report prepared by Ermias: Libra Fish Under the Supervision of: Dr. Garrett Taylor D.O. First contact with patient: 10:26 Chief Complaint: NOSE BLEED (MINOR) Stated Complaint: NOSE BLEED History of Present Illness The patient is an 87 year old female who presents to the Emergency Room with complaints of persistent right nares epistaxis that started this morning. She denies any bleeding down the back of her throat. The patient's son add that the patient experienced similar symptoms 1 month ago with 3 episodes of epistaxis from her right nares in 1-2 days. She was evaluated in the ED for that and she also made an appointment with ENT but she cannot get in to see them until April. The patient states that she saw her PCP since she was evaluated in the ED and he took her off of the baby aspirin but kept her on Xarelto. She never received cauterization. The patient is on Xarelto for atrial fibrillation. Source of History: patient, family (son) Onset: this morning Position: nose (right nares) Quality: other (epistaxis) Timing: other (persistent) Note: no bleeding down throat Review of Systems See HPI for pertinent positives & negatives. A total of 10 systems reviewed and were otherwise negative. Past Medical & Surgical Medical Problems: (1) Atrial fibrillation, new onset (2) Diabetes (3) DKA (diabetic ketoacidosis) (4) HTN (hypertension) (5) Macular degeneration Family History Diabetes mellitus Hypertension Social History Smoking Status: Former Smoker Alcohol Use: none Drug Use: none Occupation Status: retired Current/Historical Medications Scheduled Atenolol (Atenolol), 100 MG PO QAM Cholecalciferol (Vitamin D-3), 1,000 INTER.UNIT PO DAILY Cranberry (Vaccinium Macrocarp (Cranberry), 500 MG PO DAILY Cyanocobalamin (Vitamin B12), 1,000 MCG PO DAILY Diltiazem Hcl Ext Rel (Tiazac), 120 MG PO QAM Ferrous Sulfate (Iron), 1 TAB PO DAILY Insulin Aspart (Novolog Flexpen), 2-6 UNITS SC TIDM Insulin Glargine (Lantus Solostar), 10-12 UNITS SC QPM Levothyroxine Sodium (Levothyroxine Sodium), 125 MCG PO DAILY Multiple Vitamins W/ Minerals (Preservision Areds 2), 1 CAP PO DAILY Ranitidine HCl (Ranitidine HCl), 150 MG PO BID Rivaroxaban (Xarelto), 20 MG PO QAM Allergies Coded Allergies: No Known Allergies (Unverified , 03/19/17) Physical Exam Vital Signs Date Time Temp Pulse Resp B/P (MAP) Pulse Ox O2 Delivery O2 Flow Rate FiO2 03/19/17 12:22 67 20 150/90 96 03/19/17 10:57 90 16 155/99 97 Room Air 03/19/17 09:48 36.6 105 20 145/82 98 Room Air Physical Exam CONSTITUTIONAL/VITAL SIGNS: Reviewed / noted above. GENERAL: Non-toxic in appearance. INTEGUMENTARY: Warm, dry, and [place]. HEAD: Normocephalic. EYES: without scleral icterus or trauma. ENT/OROPHARYNX: small visible blood vessel/skin tag in the right anterior septum that was not bleeding initially but started bleeding after clot was removed from it. LYMPHADENOPATHY/NECK: Is supple without lymphadenopathy or meningismus. RESPIRATORY: Lungs clear and equal. CARDIOVASCULAR: Regular rate and rhythm. GI/ABDOMEN: Soft and nontender. No organomegaly or pulsatile mass. No rebound or guarding. Normal bowel sounds. EXTREMITIES: Warm and well perfused. BACK: No CVA tenderness. NEUROLOGICAL: Intact without focal deficits. PSYCHIATRIC: normal affect. MUSCULOSKELETAL: Normally developed with good muscle tone. Medical Decision & Procedures Medications Administered Medications (Trade) Dose Ordered Sig/Maryann Route Start Time Stop Time Status Last Admin Dose Admin Oxymetazoline HCl (Afrin 0.05% Nasal [place]) 75 sprays STK-MED ONCE .ROUTE 03/19/17 09:53 03/19/17 09:54 DC 03/19/17 09:53 75 SPRAYS ED Course 1026: Previous medical records were reviewed. The patient was evaluated in room C7. A complete history and physical examination was performed. 1035: Ordered Silver Nitrate/Potassium Nitrate 3 pkt OT 1036: I cauterized the patient's nose with silver nitrate at this time. The patient will be observed for some time to ensure that bleeding has stopped. 1148: On reevaluation, the patient is doing well. The patient's nose is not bleeding anymore. I discussed the results and findings with the patient. She verbalized agreement of the treatment plan. She was discharged home. Medical Decision Differentials considered include anterior epistaxis, coagulopathy, traumatic injury, fracture, septal hematoma, posterior epistaxis. Medication Reconciliation: I attest that I have personally reviewed the patient' s current medication list. Patient was found to have a slightly elevated blood pressure due to circumstances. I do not believe that the patient requires hypertension monitoring. This is an 87-year-old female who presents to the ED with a chief complaint of right anterior epistaxis. The patient's bleeding is clearly visualized on direct exam. She has a small blood vessel/skin tag in the right anterior septum that was not bleeding when I initially saw her but after removing the clot it began to bleed briskly. This was cauterized with silver nitrate and the bleeding has subsided on reexam. The patient is felt to be stable for discharge. She was discharged with a nasal compression device in case the bleeding returns. Impression Primary Impression: Epistaxis Scribe Attestation The scribe's documentation has been prepared under my direction and personally reviewed by me in its entirety. I confirm that the note above accurately reflects all work, treatment, procedures, and medical decision making performed by me. Departure Information Dispostion Home / Self-Care Referrals Jose Burks M.D. (PCP) Forms HOME CARE DOCUMENTATION FORM, IMPORTANT VISIT INFORMATION, WORK / SCHOOL INSTRUCTIONS Patient Instructions My [facility] Additional Instructions If your nose begins to rebleed, apply the nasal compression device as shown. Keep this in place for about 15 or 20 minutes to see if the bleeding subsides. If you have also recurrence of bleeding or if the bleeding does not subside, come in for reevaluation. Follow-up with your ENT specialist as scheduled.
[2017-03-19 12:22] VITALS: BP 150/90; PULSE 67; O2SAT 96
== END 2017-03-19 12:15 | disposition home or self-care (01) ==
LOC: C.EDB 09:39 → C.EDC 12:15
DX: R04.0 Epistaxis (principal); I48.91 Unspecified atrial fibrillation; E11.9 Type 2 diabetes mellitus without complications; I10 Essential (primary) hypertension; H35.30 Unspecified macular degeneration; Z83.3 Family history of diabetes mellitus; Z82.49 Family history of ischemic heart disease and other diseases of the circulatory system; Z79.4 Long term (current) use of insulin

== ENCOUNTER 2017-10-01 10:51 | Inpatient (IN) | payer OTHER ==
[~2017-10-01] VITALS: Ht 162.6 cm; Wt 49.0 kg
[~2017-10-01 10:51] MED LIST changes: +FERR1TAB23 PO; -LEVO125T4 PO; +LEVO125T5 PO
[2017-10-01] MEDS ORDERED: TPRSR/100 PO (11:42)
--- NOTE | 2017-10-01 12:23 | EMERGENCY ROOM VISIT NOTE ---
History Report prepared by Ermias: Isma Livingston Under the Supervision of: Dr. Bam Mckay M.D. First contact with patient: 11:57 Chief Complaint: FALL Stated Complaint: R-LEG PAIN/FALL History of Present Illness The patient is an 87 year old female who presents to the Emergency Room with complaints of a sudden fall occurring around 0400 this morning. The patient states that she was sitting on the side of the bed about to get up to the bathroom, and she reached to hold on to something, and she fell. The patient is complaining of right leg pain that is worsened with movement, an abrasion on her right elbow, and a bruise on her left hand. She states that she does not have any head pain, loss of consciousness, dizziness, or any recent sickness. She notes that she normally walks, though she has not walked since the falls. The patient reports that she has been eating and drinking normally recently, and she notes that she had diarrhea two nights ago, though she denies any melena or hematochezia. She is currently on Xarelto for A-fib, and she states that she takes insulin for her diabetes, though she has not taken her medications this morning. Source of History: patient Onset: 0400 Position: other (global) Quality: other (fall) Timing: other (sudden) Associated Symptoms: No LOC, No headache, No melena, No hematochezia Note: Associated symptoms: Right leg pain Review of Systems See HPI for pertinent positives & negatives. A total of 10 systems reviewed and were otherwise negative. Past Medical & Surgical Medical Problems: (1) Atrial fibrillation, new onset (2) Diabetes (3) DKA (diabetic ketoacidosis) (4) HTN (hypertension) (5) Macular degeneration (6) Nondisplaced fracture of right femur Old medical records were reviewed. Nurse's notes were reviewed and I agree with. Family History Diabetes mellitus Hypertension Social History Smoking Status: Former Smoker Alcohol Use: none Drug Use: none Occupation Status: retired Current/Historical Medications Scheduled Cholecalciferol (Vitamin D-3), 1,000 INTER.UNIT PO DAILY Cranberry (Vaccinium Macrocarp (Cranberry), 500 MG PO DAILY Cyanocobalamin (Vitamin B12), 1,000 MCG PO DAILY Diltiazem Hcl Ext Rel (Tiazac), 120 MG PO QAM Insulin Aspart (Novolog Flexpen), 2-6 UNITS SC TIDM Insulin Glargine (Lantus Solostar), 10-12 UNITS SC QPM Levothyroxine Sodium (Levothyroxine Sodium), 125 MCG PO DAILY Metoprolol Succinate (Metoprolol Succinate ER), 100 MG PO DAILY Multiple Vitamins W/ Minerals (Preservision Areds 2), 1 CAP PO DAILY Ranitidine HCl (Ranitidine HCl), 150 MG PO BID Rivaroxaban (Xarelto), 20 MG PO QAM Allergies Coded Allergies: No Known Allergies (Unverified , 03/19/17) Physical Exam Vital Signs Date Time Temp Pulse Resp B/P (MAP) Pulse Ox O2 Delivery O2 Flow Rate FiO2 10/01/17 14:57 106 20 172/88 96 Room Air 10/01/17 14:07 100 20 147/94 97 Room Air 10/01/17 11:03 37.2 109 20 151/110 96 Room Air Physical Exam General: Non-ill appearing older female in no acute distress. HEENT: Normal cephalic atraumatic. Pupils are equal round and reactive to light. Extraocular movements are intact. Oropharynx is pink with moist mucous membranes. No swelling of the mouth lips or tongue. Neck: Supple with a midline trachea. No meningeal signs or stiffness, no JVD or bruits. No Stridor. Chest: Clear to auscultation bilaterally. No wheezes or rhonchi. No increased work of breathing. Heart: regular rate and rhythm. Abdomen: Soft nontender, nondistended without rebound guarding or rigidity. Extremities: Right leg has no shortening or deformity. Tenderness to palpation in the right proximal anterior thigh toward the pelvis. Spine/Back. Non tender to palpation. No CVA tenderness Skin: Multiple old bruises from anticoagulation use. Good turgor without rashes. Neurologic exam: Cranial nerves two through 12 are intact. Motor and sensation are intact and symmetrical throughout. Medical Decision & Procedures ER Provider Diagnostic Interpretation: Radiology results as stated below per my review and radiologist interpretation: R PELVIS/UNILATERAL HIP 2-3VIEWS HISTORY: 87 years-old Female RT PROX FEMUR/HIP PAIN acute right hip pain COMPARISON: None available TECHNIQUE: AP view the pelvis with 2 views of the right hip FINDINGS: The bones appear moderately demineralized. Moderate degenerative changes involve the bilateral femoral acetabular joints. No pelvic ring fracture identified. Degenerative changes are seen within the lower lumbar spine. Irregular lucency with associated cortical irregularity is seen within the intertrochanteric region of the right femur suggesting acute nondisplaced fracture. Vascular calcifications noted. IMPRESSION: 1. Irregular lucency with cortical irregularity involving the intratrochanteric right femur suggests acute nondisplaced fracture. 2. Moderate bone demineralization. The above report was generated using voice recognition software. It may contain grammatical, syntax or spelling errors. Electronically signed by: Alex Mix M.D. 10/01/2017 1:23 PM Dictated Date/Time: 10/01/2017 1:20 PM Laboratory Results 10/01/17 12:25 Red Blood Count 4.25, Mean Corpuscular Volume 90.1, Mean Corpuscular Hemoglobin 30.6, Mean Corpuscular Hemoglobin Concent 33.9, Mean Platelet Volume 9.6, Neutrophils (%) (Auto) 90.5, Lymphocytes (%) (Auto) 4.2, Monocytes (%) (Auto) 4.8, Eosinophils (%) (Auto) 0.0, Basophils (%) (Auto) 0.1, Neutrophils # (Auto) 12.80, Lymphocytes # (Auto) 0.59, Monocytes # (Auto) 0.68, Eosinophils # (Auto) 0.00, Basophils # (Auto) 0.01 10/01/17 12:25 Test 10/01/17 12:25 10/01/17 12:41 White Blood Count 14.14 K/uL (4.8-10.8) Red Blood Count 4.25 M/uL (4.2-5.4) Hemoglobin 13.0 g/dL (12.0-16.0) Hematocrit 38.3 % (37-47) Mean Corpuscular Volume 90.1 fL (80-100) Mean Corpuscular Hemoglobin 30.6 pg (25-34) Mean Corpuscular Hemoglobin Concent 33.9 g/dl (32-36) Platelet Count 219 K/uL (130-400) Mean Platelet Volume 9.6 fL (7.4-10.4) Neutrophils (%) (Auto) 90.5 % Lymphocytes (%) (Auto) 4.2 % Monocytes (%) (Auto) 4.8 % Eosinophils (%) (Auto) 0.0 % Basophils (%) (Auto) 0.1 % Neutrophils # (Auto) 12.80 K/uL (1.4-6.5) Lymphocytes # (Auto) 0.59 K/uL (1.2-3.4) Monocytes # (Auto) 0.68 K/uL (0.11-0.59) Eosinophils # (Auto) 0.00 K/uL (0-0.5) Basophils # (Auto) 0.01 K/uL (0-0.2) RDW Standard Deviation 45.9 fL (36.4-46.3) RDW Coefficient of Variation 13.9 % (11.5-14.5) Immature Granulocyte % (Auto) 0.4 % Immature Granulocyte # (Auto) 0.06 K/uL (0.00-0.02) Anion Gap 8.0 mmol/L (3-11) Est Creatinine Clear Calc Drug Dose 38.8 ml/min Estimated GFR () 78.0 Estimated GFR (Non- 67.3 BUN/Creatinine Ratio 33.4 (10-20) Calcium Level 8.8 mg/dl (8.5-10.1) Total Bilirubin 0.7 mg/dl (0.2-1) Direct Bilirubin 0.1 mg/dl (0-0.2) Aspartate Amino Transf (AST/SGOT) 49 U/L (15-37) Alanine Aminotransferase (ALT/SGPT) 36 U/L (12-78) Alkaline Phosphatase 118 U/L (45-117) Total Protein 7.4 gm/dl (6.4-8.2) Albumin 3.5 gm/dl (3.4-5.0) Lipase 48 U/L (73-393) Bedside Troponin I < 0.030 ng/ml (0-0.045) Laboratory studies as stated above per my review. Medications Administered ECG Indication: other (fall) Rate (beats per minute): 108 Rhythm: atrial fibrillation (with RVR) Findings: nonspecific-ST abn Comparison ECG Date: 11/03/10 Change: ST segments have improved EKG interpreted by me ED Course 1157: Past medical records reviewed. The patient was evaluated in room C11, and a complete history and physical examination were performed. 1318: Upon reevaluation, the patient is resting. I discussed the results and treatment plan with the patient. She verbalized agreement of the treatment plan. The patient will be evaluated for further management. 1324: Discussed the patient's case with Dr. Tabares. The patient will be evaluated for further management. 1517: I discussed the patient's case with Dr. Levon Orr, and he is going to evaluate the patient. 1554: Zofran 4mg IV Medical Decision Differentials include, but are not limited to; hip fracture, pelvis fracture, diabetic emergency, infection, electrolyte or metabolic abnormality, arrhythmia. This patient comes in as described above. she suffered awhat sounds a mechanical fall . she has pain in her right hip and she has been unable to walk since then. this happened this morning. There is no prolonged time down on the ground or anything to put her at risk for rhabdomyolysis. EKG shows chronic A. fib. She is on chronic anticoagulation. She has no significant acute electrolyte or metabolic abnormalities. X-ray showed nondisplaced intertrochanteric hip fracture. I do think she needs to be admitted for further treatment and evaluation and likely surgical repair. Given her age and the fact that she is on a blood thinner and has multiple medical problems, she will likely need medical clearance as well. I have consulted the [facility] hospitalist to see her and have also talked to Dr. Peterson as he was video conference specialist for orthopedics. She will be admitted for these measures. Medication Reconcilliation Current Medication List: was personally reviewed by me Blood Pressure Screening Patient's blood pressure: Elevated blood pressure Monitored by the hospitalist Consults Time Called: 1318 Consulting Physician: Dr. Tabares Returned Call: 1324 Discussed the patient's case with Dr. Tabares. The patient will be evaluated for further management. Additional Consults: Time Called: 1510 Consulted Physician: Dr. Levon Orr Returned Call: [phone] Additional Comments: I discussed the patient's case with Dr. Levon Orr, and he is going to evaluate the patient. Impression Primary Impression: Hip fracture Additional Impression: Anticoagulated Scribe Attestation The scribe's documentation has been prepared under my direction and personally reviewed by me in its entirety. I confirm that the note above accurately reflects all work, treatment, procedures, and medical decision making performed by me. Departure Information Dispostion Being Evaluated By Hospitalist Referrals Jose Burks M.D. (PCP) Patient Instructions [facility] Problem Qualifiers
[2017-10-01 12:42] LABS: BASO % 0.1 %; BASO ABS # 0.01 K/uL (0-0.2); HEMATOCRIT 38.3 % (37-47); IG# 0.06 K/uL (0.00-0.02); LYMPH % 4.2 %; LYMPH ABS # 0.59 K/uL (1.2-3.4); MEAN CELL VOLUME 90.1 fL (80-100); MEAN CORPUSCULAR HEMOGLOBIN 30.6 pg (25-34); MEAN CORPUSCULAR HGB CONC 33.9 g/dl (32-36); MEAN PLATELET VOLUME 9.6 fL (7.4-10.4); MONO % 4.8 %; MONO ABS # 0.68 K/uL (0.11-0.59); NEUT % 90.5 %; PLATELET COUNT 219 K/uL (130-400); RED CELL DISTRIBUTION WIDTH CV 13.9 % (11.5-14.5); RED CELL DISTRIBUTION WIDTH SD 45.9 fL (36.4-46.3); WHITE BLOOD COUNT 14.14 K/uL (4.8-10.8)
[2017-10-01 13:05] LABS: ALBUMIN 3.5 gm/dl (3.4-5.0); CALCIUM 8.8 mg/dl (8.5-10.1); CREATININE 0.79 mg/dl (0.60-1.20); POTASSIUM 3.8 mmol/L (3.5-5.1)
[2017-10-01 13:08] LABS: TOTAL PROTEIN 7.4 gm/dl (6.4-8.2)
--- NOTE | 2017-10-01 13:24 | DIAGNOSTIC IMAGING REPORT ---
R PELVIS/UNILATERAL HIP 2-3VIEWS HISTORY: 87 years-old Female RT PROX FEMUR/HIP PAIN acute right hip pain COMPARISON: None available TECHNIQUE: AP view the pelvis with 2 views of the right hip FINDINGS: The bones appear moderately demineralized. Moderate degenerative changes involve the bilateral femoral acetabular joints. No pelvic ring fracture identified. Degenerative changes are seen within the lower lumbar spine. Irregular lucency with associated cortical irregularity is seen within the intertrochanteric region of the right femur suggesting acute nondisplaced fracture. Vascular calcifications noted. IMPRESSION: 1. Irregular lucency with cortical irregularity involving the intratrochanteric right femur suggests acute nondisplaced fracture. 2. Moderate bone demineralization. The above report was generated using voice recognition software. It may contain grammatical, syntax or spelling errors. Electronically signed by: Alex Mix M.D. 10/01/2017 1:23 PM Dictated Date/Time: 10/01/2017 1:20 PM
--- NOTE | 2017-10-01 13:43 | History and Physical ---
History & Physical Date & Time of Service: Oct 01, 2017 at 13:43 Chief Complaint: R-Leg Pain/Fall Primary Care Physician: Pooja Chirinos M.D. History of Present Illness Patient reports falling while trying to stand from a seated position. She went to get up from bed to go to the bathroom, and felt her right leg give out. Patient then noticed severe pain in her right leg and fell to the ground. Patient reports pain in her right upper thigh which is severe and nonradiating. It is shapr and worsens with movement. Patient is unable to weight bear. patient denies any dizziness, syncope, nausea , vomiting. Patient reports that she is on xarelto a. fib but did not take any of of meds today. Patient denies AR, H/O AR, stoke, tia. Patient does have history of CKD, HTN, GRADE 2 DIASTOLIC DYSFUNCTION, HTN, DM Past Medical/Surgical History Medical Problems: (1) Diabetes Status: Chronic (2) HTN (hypertension) Status: Chronic (3) Macular degeneration Status: Chronic Family History Diabetes mellitus Hypertension Social History Smoking Status: Former Smoker Smokeless Tobacco Use: No Alcohol Use: none Drug Use: none Marital Status: Occupational Status: retired Immunizations History of Influenza Vaccine: Yes History of Tetanus Vaccine?: Unknown History of Pneumococcal: Unknown History of Hepatitis B Vaccine: Unknown Allergies Coded Allergies: No Known Allergies (Unverified , 03/19/17) Home Medications Scheduled Cholecalciferol (Vitamin D-3), 1,000 INTER.UNIT PO DAILY Cranberry (Vaccinium Macrocarp (Cranberry), 500 MG PO DAILY Cyanocobalamin (Vitamin B12), 1,000 MCG PO DAILY Diltiazem Hcl Ext Rel (Tiazac), 120 MG PO QAM Insulin Aspart (Novolog Flexpen), 2-6 UNITS SC TIDM Insulin Glargine (Lantus Solostar), 10-12 UNITS SC QPM Levothyroxine Sodium (Levothyroxine Sodium), 125 MCG PO DAILY Metoprolol Succinate (Metoprolol Succinate ER), 100 MG PO DAILY Multiple Vitamins W/ Minerals (Preservision Areds 2), 1 CAP PO DAILY Ranitidine HCl (Ranitidine HCl), 150 MG PO BID Rivaroxaban (Xarelto), 20 MG PO QAM Review of Systems Constitutional: No fever, No chills Eyes: No worsening of vision ENT: No hearing loss Respiratory: No cough Cardiovascular: No chest pain, No orthopnea Abdomen: No pain, No nausea Musculoskeletal: + joint pain Neurologic: No memory loss, No paralysis Psychiatric: No depression symptoms Endocrine: No fatigue Hematologic / Lymphatic: + abnormal bleeding/bruising Integumentary: No rash Allergic / Immunologic: No environmental allergies Physical Exam Vital Signs Date Time Temp Pulse Resp B/P (MAP) Pulse Ox O2 Delivery O2 Flow Rate FiO2 10/01/17 11:03 37.2 109 20 151/110 96 Room Air General Appearance: WD/WN, no apparent distress Head: normocephalic Eyes: normal inspection ENT: pharynx normal Neck: supple, no adenopathy Respiratory/Chest: chest non-tender, lungs clear, normal breath sounds Cardiovascular: normal peripheral pulses, + irregularly irregular, + pertinent finding (Mild pedal edema) Abdomen/GI: normal bowel sounds, non tender, soft Back: normal inspection, no CVA tenderness Neurologic/Psych: alert, normal mood/affect, + pertinent finding (tenderness to palpation over proximal femur about 4 fingers below the hip. Pain with leg roll.) Skin: normal color Lymphatic: no adenopathy Diagnostics Laboratory Results Results Past 24 Hours Test 10/01/17 12:25 10/01/17 12:41 Range/Units White Blood Count 14.14 4.8-10.8 K/uL Red Blood Count 4.25 4.2-5.4 M/uL Hemoglobin 13.0 12.0-16.0 g/dL Hematocrit 38.3 37-47 % Mean Corpuscular Volume 90.1 80-100 fL Mean Corpuscular Hemoglobin 30.6 25-34 pg Mean Corpuscular Hemoglobin Concent 33.9 32-36 g/dl Platelet Count 219 130-400 K/uL Mean Platelet Volume 9.6 7.4-10.4 fL Neutrophils (%) (Auto) 90.5 % Lymphocytes (%) (Auto) 4.2 % Monocytes (%) (Auto) 4.8 % Eosinophils (%) (Auto) 0.0 % Basophils (%) (Auto) 0.1 % Neutrophils # (Auto) 12.80 1.4-6.5 K/uL Lymphocytes # (Auto) 0.59 1.2-3.4 K/uL Monocytes # (Auto) 0.68 0.11-0.59 K/uL Eosinophils # (Auto) 0.00 0-0.5 K/uL Basophils # (Auto) 0.01 0-0.2 K/uL RDW Standard Deviation 45.9 36.4-46.3 fL RDW Coefficient of Variation 13.9 11.5-14.5 % Immature Granulocyte % (Auto) 0.4 % Immature Granulocyte # (Auto) 0.06 0.00-0.02 K/uL Sodium Level 138 136-145 mmol/L Potassium Level 3.8 3.5-5.1 mmol/L Chloride Level 105 98-107 mmol/L Carbon Dioxide Level 25 21-32 mmol/L Anion Gap 8.0 3-11 mmol/L Blood Urea Nitrogen 26 7-18 mg/dl Creatinine 0.79 0.60-1.20 mg/dl Est Creatinine Clear Calc Drug Dose 38.8 ml/min Estimated GFR () 78.0 Estimated GFR (Non- 67.3 BUN/Creatinine Ratio 33.4 10-20 Random Glucose 123 70-99 mg/dl Calcium Level 8.8 8.5-10.1 mg/dl Total Bilirubin 0.7 0.2-1 mg/dl Direct Bilirubin 0.1 0-0.2 mg/dl Aspartate Amino Transf (AST/SGOT) 49 15-37 U/L Alanine Aminotransferase (ALT/SGPT) 36 12-78 U/L Alkaline Phosphatase 118 45-117 U/L Total Protein 7.4 6.4-8.2 gm/dl Albumin 3.5 3.4-5.0 gm/dl Lipase 48 73-393 U/L Bedside Troponin I < 0.030 0-0.045 ng/ml Diagnostic Radiology R PELVIS/UNILATERAL HIP 2-3VIEWS HISTORY: 87 years-old Female RT PROX FEMUR/HIP PAIN acute right hip pain COMPARISON: None available TECHNIQUE: AP view the pelvis with 2 views of the right hip FINDINGS: The bones appear moderately demineralized. Moderate degenerative changes involve the bilateral femoral acetabular joints. No pelvic ring fracture identified. Degenerative changes are seen within the lower lumbar spine. Irregular lucency with associated cortical irregularity is seen within the intertrochanteric region of the right femur suggesting acute nondisplaced fracture. Vascular calcifications noted. IMPRESSION: 1. Irregular lucency with cortical irregularity involving the intratrochanteric right femur suggests acute nondisplaced fracture. 2. Moderate bone demineralization. The above report was generated using voice recognition software. It may contain grammatical, syntax or spelling errors. Electronically signed by: Alex Mix M.D. 10/01/2017 1:23 PM Dictated Date/Time: 10/01/2017 1:20 PM EKG Atrial fibrillation with rapid ventricular response Nonspecific ST and T wave abnormality Abnormal ECG When compared with ECG of 03-NOV-2016 09:21, No significant change was found Confirmed by SHAE ABEL ([id number]) on 10/01/2017 9:55:51 PM Impression Assessment and Plan Acute non displaced fracture of the right femur sp/ Fall in a 87 yo female with A. Fib, DM, HTN, 1. Acute non displaced fracture of right prox. femur Admit to MED/ SURG D/W ortho. Due to risk of high bleeding, will need to hold xarelto for 2 days. Patient will be scheduled for surgery on Monday. Patient and family is aware. Patient has a relative cardiac risk index of 3: CKD, Insulin use, and H/O CHF. D/W Cardiology, no need to do stress test at this time, as this would not pattern changer and repairer. Given that her morbidity and mortality rises without getting her hip fixed. She is an intermediate to high risk patient going for an intermediate risk procedure. Patient did not want any pain meds. 2. A. Fib (likely persistent) will cont. with home meds. Gave dose now of metoprolol and diltiazem will hold xarelto as noted above. 3. HTN: WILL MONITOR. Restart home meds. BP elevated. likely due to missed dose and pain Hyperlipidemia: cont. statin, stable Hypothyroidism cont. home meds DM2 will place on insulin sliding scale. DVT: holding xarelto Diet: full liquid due to lack of dentures. Family will bring dentures Code status: Full, however, later received call by nurse that patient would like to be AND W/O intubation. Please confirm before updating code status Level of Care Med/Surg Advanced Directives Existing Advance Directive: No Existing Living Will: No Existing Power of Medication Aid: No Existing Health Care Proxy: No Resuscitation Status FULL RESUSCITATION VTE Prophylaxis VTE Risk Assessment Done? Y/N: Yes Risk Level: Moderate Given or contraindicated: Other Anticoagulation (xarelto, holding currently for surgery)
[2017-10-01] MEDS ORDERED: GLUCOSE 40% GEL 15 GM TUBE PO PRN (15:15)
[2017-10-01] MEDS ORDERED: DEXTROSE 50% 50 ML SYR IV PRN (15:15)
[2017-10-01] MEDS ORDERED: ACETAMINOPHEN 325 MG TAB PO PRN (15:15)
[2017-10-01] MEDS ORDERED: GLUCAGON FOR INJ 1 MG VIAL SQ PRN (15:15)
[2017-10-01] MEDS ORDERED: GLUCOSE 10 TABS/TUBE PO PRN (15:15)
[2017-10-01] MEDS ORDERED: DILTIAZEM HCL 120 MG EXT REL CAP PO ONE (15:46)
[2017-10-01] MEDS ORDERED: LEVOTHYROXINE 125 MCG TAB PO ONE (15:47)
[2017-10-01] MEDS ORDERED: METOPROLOL SUCC 50MG EXT REL TAB PO STA (15:47)
[2017-10-01] MEDS ORDERED: ONDANSETRON INJ 2 MG/ML 2 ML VIAL IV STA (15:54)
[2017-10-01 16:30] VITALS: O2SAT 97
[2017-10-01 16:55] VITALS: BP 151/88; PULSE 98; TEMP 36.9; O2SAT 97
[2017-10-01 17:00] VITALS: BMI 18.5
[2017-10-01] MEDS ORDERED: INFLUENZA ADMINISTRATION CHARGE ONE (17:45)
[2017-10-01] MEDS ORDERED: INFLUENZA VIRUS QUAD VACCINE 0.5 ML SYR IM. ONE (17:45)
[2017-10-01] MEDS ORDERED: PNEUMOCOCCAL POLYSACCHARIDES 25 MCG/0.5 ML VIAL/SYR IM. ONE (17:45)
[2017-10-01] MEDS ORDERED: PNEUMOCOCCAL ADMINISTRATION CHARGE ONE (17:45)
[2017-10-01] MEDS: INSULIN ASPART 100 UNITS/ML 3 ML PEN SC SCH ×2 (18:44→22:08)
[2017-10-01 18:48] VITALS: BP 145/77; PULSE 98
[2017-10-01] MEDS: RANITIDINE HCL 150 MG TAB PO SCH (22:04)
[2017-10-01 23:00] VITALS: BP 124/73; PULSE 89; TEMP 36.8; O2SAT 95
[2017-10-02] MEDS: LEVOTHYROXINE 125 MCG TAB PO SCH (05:31)
[2017-10-02 06:57] VITALS: BP 127/78; PULSE 88; TEMP 36.8; O2SAT 98
[2017-10-02 07:36] LABS: BASO % 0.2 %; BASO ABS # 0.02 K/uL (0-0.2); EOS % 0.6 %; EOS ABS # 0.05 K/uL (0-0.5); HEMATOCRIT 33.3 % (37-47); HEMOGLOBIN 11.3 g/dL (12.0-16.0); IG# 0.04 K/uL (0.00-0.02); LYMPH % 13.8 %; LYMPH ABS # 1.12 K/uL (1.2-3.4); MEAN CELL VOLUME 90.5 fL (80-100); MEAN CORPUSCULAR HEMOGLOBIN 30.7 pg (25-34); MEAN CORPUSCULAR HGB CONC 33.9 g/dl (32-36); MEAN PLATELET VOLUME 9.3 fL (7.4-10.4); MONO % 10.1 %; MONO ABS # 0.82 K/uL (0.11-0.59); NEUT % 74.8 %; NEUT ABS # 6.04 K/uL (1.4-6.5); PLATELET COUNT 176 K/uL (130-400); RED CELL DISTRIBUTION WIDTH SD 46.6 fL (36.4-46.3); WHITE BLOOD COUNT 8.09 K/uL (4.8-10.8)
[2017-10-02 08:05] LABS: CALCIUM 8.5 mg/dl (8.5-10.1); CREATININE 0.71 mg/dl (0.60-1.20); POTASSIUM 3.8 mmol/L (3.5-5.1)
[2017-10-02] MEDS ORDERED: NON-FORMULARY MEDICATION (Cranberry (Vaccinium Macrocarp (Cranberry) 500 MG) PO SCH (09:00)
--- NOTE | 2017-10-02 09:20 | Anesthesiology Progress Note ---
Anesthesia Progress Note Date of Service Oct 02, 2017. Progress Notes Pt is scheduled for R troch nail on 10/03/17. Pt is an 87F h/o afib, HTN, GERD, hypothyroidism, macular degeneration, and former smoker. Pt was admitted 2/2 mechanical fall with a R femur fx. The pt's last dose of xarelto was 09/30/17 at 10AM. I ordered a type and screen in preparation for her procedure. The pt is an acceptable candidate for spinal vs. general anesthesia. I obtained consent from the pt. All questions and concerns were addressed.
--- NOTE | 2017-10-02 09:46 | ORTHOPEDIC CONSULTATION ---
DATE OF CONSULTATION: 10/02/2017 CHIEF COMPLAINT: Right hip pain. HISTORY OF PRESENT ILLNESS: The patient is an 87-year-old female who lives at [facility]. She stood up yesterday morning and fell. She was not lightheaded, dizzy, nor did she have chest pains or palpitations. She was able to get herself back into bed and when her family came later that morning, she was brought to the Emergency Room where she was found to have a nondisplaced intertrochanteric fracture of her right hip. She denies prior history of right hip injuries. She complains of pain only isolated to the right hip and does not have any other issues, numbness or tingling. She has been admitted to medicine. She has a past medical history of diabetes on insulin, high blood pressure, macular degeneration, and chronic kidney disease. ALLERGIES: She has no known drug allergies. MEDICATIONS: At present include vitamin D, cranberry, B12, diltiazem, insulin, Synthroid, metoprolol, multivitamin, ranitidine, and Xarelto. LABORATORY DATA: Today, her white count is 8. Her hemoglobin 11, hematocrit 33, platelet count is 176, BUN is 20, glucose 140. PHYSICAL EXAMINATION: Her dorsalis pedis pulses dopplerable only. Otherwise, her pulses are not palpable in the right lower extremity. She has capillary refill less than 2 seconds. The foot is warm and not swollen and she has 5/5 ankle and toe plantar flexion and dorsiflexion strength bilaterally. She can freely move her left lower extremity and both upper extremities. She is awake and alert and responds to questions appropriately. She does not want to move the right leg, which is slightly externally rotated. The right lower extremity is nontender to palpation except for the right hip. There is no break in the skin, no significant swelling or bruising. IMAGING STUDIES: The right hip x-ray demonstrates a nondisplaced intertrochanteric fracture, no arthritis, no bone or soft tissue lesions. ____ IMPRESSION: Right hip nondisplaced intertrochanteric hip fracture. PLAN: Findings were discussed. We discussed what can happen with nonoperative management, fracture displacement, pneumonia, blood clots, etc. I have recommended operative intervention to promote early mobilization and avoid the effects of prolonged immobility. She agrees to proceed. She wishes to be a DNR, which should be addressed with the primary team. They were educated about the surgical procedure. We reviewed the risks, benefits, rehab and recovery and an informed consent is obtained. Her last dose of Xarelto was approximately at 9 or 10 a.m. on Monday morning and we will plan on surgery tomorrow so that she will have a spinal anesthetic and a lessened risk of bleeding.
[2017-10-02] MEDS: DILTIAZEM HCL 120 MG EXT REL CAP PO SCH (10:04)
[2017-10-02] MEDS: CEROVITE ADV FORMULA TAB PO SCH (10:04)
[2017-10-02] MEDS: CHOLECALCIFEROL 1000 INTER.UNIT TAB PO SCH (10:04)
[2017-10-02] MEDS: CYANOCOBALAMIN 500 MCG TAB (VIT B-12) PO SCH (10:04)
--- NOTE | 2017-10-02 10:04 | ORTHOPEDIC CONSULTATION ---
DATE OF CONSULTATION: 10/02/2017 ADDENDUM She does not have any history of bleeding, blood clots, infections or metal sensitivity. Surgical-bell, she has had several bladder repairs and a hysterectomy.
[2017-10-02] MEDS: METOPROLOL SUCC 50MG EXT REL TAB PO SCH (10:05)
[2017-10-02] MEDS: RANITIDINE HCL 150 MG TAB PO SCH ×2 (10:05→20:26)
[2017-10-02] MEDS: INSULIN ASPART 100 UNITS/ML 3 ML PEN SC SCH ×4 (10:14→21:48)
[2017-10-02] MEDS ORDERED: LANTUS PER UNIT CHARGE SQ ONE (12:30)
--- NOTE | 2017-10-02 12:55 | CARDIOLOGY CONSULTATION REPORT ---
DATE OF CONSULTATION: 10/02/2017 FOR: Dr. Byron Cavazos. REASON FOR CONSULTATION: 1. Chronic Atrial Fibrillation. 2. Preoperative Cardiologic Evaluation. HISTORY OF PRESENT ILLNESS: Mrs. Berg is a very pleasant 87-year-old white female with a history of Chronic Atrial Fibrillation (rate control / anticoagulation), Hypertension, Dyslipidemia, Type 2 DM, LVH with Diastolic Dysfunction, Iron Deficiency Anemia, and macular degeneration, who was admitted acutely to [facility] on 10/01/2017 after sustaining a fall which resulted in a right hip fracture. The patient was sitting up at her bedside at approximately 0400 on 10/01/2017. She did not feel lightheaded or dizzy at all after sitting there for a period of time, she then got up to use the restroom--and she was reaching to hold on to something when she suddenly fell and injured her right hip. The patient denies any syncope or near syncope around the time of this fall. The patient was then brought into the Emergency Room for further evaluation. X-ray confirmed a nondisplaced right hip intertrochanteric fracture. Anticipate surgical intervention tomorrow with Dr. Jose Dos Santos. The patient has been doing well from a cardiac standpoint. She does not have any symptoms attributable to her atrial fibrillation. She is able to perform her usual activities of daily living without limiting cardiopulmonary symptoms. She specifically denies any exertional chest pain, heaviness, tightness, or pressure. She denies any exertional neck, jaw, back or arm pain. She denies any shortness of breath, unusual dyspnea on exertion, or any recent changes in her exertional tolerance. The patient further denies any palpitations, tachypalpitations, orthopnea, PND, syncope or near syncope. MEDICATIONS: 1. Vitamin D 1000 IUs daily. 2. Diltiazem CD 120 mg daily. 3. Vitamin B12 1000 mcg daily. 4. Toprol-XL 100 mg daily. 5. Multivitamin with minerals 1 tablet daily. 6. Levothyroxine 125 mcg daily. 7. Ranitidine 150 mg b.i.d. 8. NovoLog sliding scale insulin. 9. Tylenol p.r.n. ALLERGIES: NKDA. PAST MEDICAL HISTORY: 1. 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 2. Hypertension. 3. Dyslipidemia. 4. Hypothyroidism. 5. Iron deficiency anemia. 6. Macular degeneration. 7. Chronic atrial fibrillation. 8. History of allergic urticaria. 9. History of hysterectomy. SOCIAL HISTORY: The patient currently lives at the [facility]. Previously smoked but quit more than 30 years ago. Does not drink alcohol. FAMILY HISTORY: Mother in her late 60s from complications of diabetes. Father at the young age from unknown causes. PHYSICAL EXAMINATION: VITAL SIGNS: Temperature is 36.8 degree Celsius, pulse is 88 and irregularly irregular, respiratory rate is 16 and unlabored, blood pressure is 127/78, SpO2 is 98% on room air. GENERAL: The patient is in no acute distress. HEENT: Head is atraumatic, normocephalic. EOMs intact. Sclerae anicteric. Facies symmetric. No perioral cyanosis. Mucous membranes moist. NECK: Without thyromegaly, adenopathy or JVD. Carotid upstrokes +2 bilaterally without bruits. CHEST AND LUNGS: Clear to auscultation throughout all lung umanzor. No wheezes, rales, or rhonchi. CARDIOVASCULAR: S1 and S2 are irregularly irregular with a controlled ventricular response rate. There is a grade 1/6 basal systolic murmur noted. No diastolic murmurs. No gallops or rubs. PMI is nondisplaced. No lifts, heaves, or thrills. ABDOMEN: Bowel sounds are present. EXTREMITIES: Without clubbing, cyanosis, or edema. Intact dorsalis pedis and posterior tibial pulses bilaterally. NEUROLOGIC: The patient is awake, alert, oriented and interactive. Pleasant and cooperative. Answers questions appropriately. Speech is clear. Normal movement in bilateral upper extremities. Gait pattern obviously not assessed. ASSESSMENT: 1. Right hip intertrochanteric fracture with anticipated surgical intervention tomorrow. 2. 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 3. Hypertension. 4. Dyslipidemia. 5. Hypothyroidism. 6. Diabetes mellitus. 7. Preoperative cardiac evaluation. PLAN: 1. Mrs. Berg was admitted with acute right hip fracture and anticipates surgical intervention tomorrow. Based on her normal LV systolic function (Echocardiogram October 2016), well controlled ventricular response rate, and her functional status without limiting cardiopulmonary symptoms - the patient is a low to intermediate surgical risk for upcoming surgical intervention of her right hip fracture. Would recommend that she take her usual doses of Toprol-XL 100 mg and Diltiazem CD 120 mg on morning of surgery with sips of water. 2. Xarelto is currently on hold. Resume postoperatively when hemostasis allows. 3. As she does have some diastolic dysfunction, would recommend judicious use of IV fluids and careful monitoring of daily I&O's and body weights. 4. Monitor daily H/H, PRP. 5. DVT prophylaxis, as per surgeon. 6. Physical therapy as per protocol. 7. We will continue to follow the patient while hospitalized. KRISTAND
--- NOTE | 2017-10-02 13:39 | Hospitalist Progress Note ---
Hospitalist Progress Note Date of Service Oct 02, 2017. (Keely Duval ., PA-C) Subjective Pt evaluation today including: conversation w/ patient, conversation w/ family (daughter at bedside ), physical exam, lab review, review of studies, review of inpatient medication list Voiding: no voiding problems Patient resting in bed. Eating and drinking OK. Pain 09/20. +diarrhea- not uncommon, happens with liquid diets- advanced. RN to continue to follow. Patient denies any fever, chills, sweats, lightheadedness, dizziness, vision changes, CP, palpitations, edema, SOB, wheezing, cough, abdominal pain, nausea, vomiting, urinary symptoms, melena, numbness/tingling, weakness, muscle/joint pain, anxiety/depression, active bleeding, or new skin discoloration/changes. (Keely Duval ., PA-C) Medications Current Inpatient Medications Medications (Trade) Dose Ordered Sig/Maryann Route Start Time Stop Time Status Last Admin Dose Admin Acetaminophen (Tylenol Tab) 650 mg Q4H PRN PO 10/01/17 15:15 10/31/17 15:14 10/01/17 15:41 650 MG Insulin Aspart (novoLOG ASPART) SLIDING SCALE If C... ACHS SC 10/01/17 16:00 10/31/17 15:59 10/02/17 13:26 9 UNITS Glucose (Glucose 40% Gel) 15-30 GRAMS 15 GRAMS... UD PRN PO 10/01/17 15:15 10/31/17 15:14 Glucose (Glucose Chew Tab) 4-8 Tablets 4 Tabl... UD PRN PO 10/01/17 15:15 10/31/17 15:14 Dextrose (Dextrose 50% 50ML Syringe) 25-50ML OF 50% DW IV FOR... UD PRN IV 10/01/17 15:15 10/31/17 15:14 Glucagon (Glucagon Inj) 1 mg UD PRN SQ 10/01/17 15:15 10/31/17 15:14 Cholecalciferol (Vitamin D Tab) 1,000 inter.unit DAILY PO 10/02/17 09:00 11/01/17 08:59 10/02/17 10:04 1,000 INTER.UNIT Diltiazem HCl (TIAzac CAP) 120 mg QAM PO 10/02/17 09:00 11/01/17 08:59 10/02/17 10:04 120 MG Levothyroxine Sodium (Synthroid Tab) 125 mcg DAILYBB PO 10/02/17 06:00 11/01/17 06:59 10/02/17 05:31 125 MCG Ranitidine HCl (zANTac TAB) 150 mg BID PO 10/01/17 21:00 10/31/17 20:59 10/02/17 10:05 150 MG Cyanocobalamin (Vitamin B-12 Tab) 1,000 mcg DAILY PO 10/02/17 09:00 11/01/17 08:59 10/02/17 10:04 1,000 MCG Metoprolol Succinate (Toprol Xl Tab) 100 mg DAILY PO 10/02/17 09:00 11/01/17 08:59 10/02/17 10:05 100 MG Multivitamins/ Minerals (Multivitamin W/ Minerals Tab) 1 tab DAILY PO 10/02/17 09:00 11/01/17 08:59 10/02/17 10:04 1 TAB Cefazolin Sodium (Cefazolin 1000mg Iv Push) 1,000 mg PREOP IV 10/03/17 06:00 10/04/17 05:59 (Keely Duval PA-C) Objective Vital Signs Date Time Temp Pulse Resp B/P (MAP) Pulse Ox O2 Delivery O2 Flow Rate FiO2 10/02/17 07:40 Room Air 10/02/17 06:57 36.8 88 16 127/78 (94) 98 Room Air 10/02/17 00:00 Room Air 10/01/17 23:00 36.8 89 16 124/73 (90) 95 Room Air 10/01/17 18:48 98 145/77 (99) 10/01/17 17:00 Room Air 10/01/17 16:55 36.9 98 18 151/88 (109) 97 Room Air 10/01/17 16:30 97 Room Air 10/01/17 15:57 105 20 154/99 93 Room Air 10/01/17 14:57 106 20 172/88 96 Room Air 10/01/17 14:07 100 20 147/94 97 Room Air (Keely Duval PA-C) Physical Exam General Appearance: no apparent distress Eyes: normal inspection, PERRL ENT: hearing grossly normal Neck: supple Respiratory/Chest: lungs clear, no respiratory distress, no accessory muscle use Cardiovascular: + irregularly irregular (rate controlled ) Abdomen: normal bowel sounds, non tender, soft Extremities: no pedal edema, no calf tenderness Neurologic/Psychiatric: alert, normal mood/affect, oriented x 3 Skin: normal color, warm/dry, no rash (Keely Duval, YINKA) Laboratory Results Last 24 Hours Test 10/01/17 17:00 10/01/17 20:47 10/02/17 07:20 10/02/17 08:17 Bedside Glucose 148 mg/dl 247 mg/dl 128 mg/dl White Blood Count 8.09 K/uL Red Blood Count 3.68 M/uL Hemoglobin 11.3 g/dL Hematocrit 33.3 % Mean Corpuscular Volume 90.5 fL Mean Corpuscular Hemoglobin 30.7 pg Mean Corpuscular Hemoglobin Concent 33.9 g/dl Platelet Count 176 K/uL Mean Platelet Volume 9.3 fL Neutrophils (%) (Auto) 74.8 % Lymphocytes (%) (Auto) 13.8 % Monocytes (%) (Auto) 10.1 % Eosinophils (%) (Auto) 0.6 % Basophils (%) (Auto) 0.2 % Neutrophils # (Auto) 6.04 K/uL Lymphocytes # (Auto) 1.12 K/uL Monocytes # (Auto) 0.82 K/uL Eosinophils # (Auto) 0.05 K/uL Basophils # (Auto) 0.02 K/uL RDW Standard Deviation 46.6 fL RDW Coefficient of Variation 14.0 % Immature Granulocyte % (Auto) 0.5 % Immature Granulocyte # (Auto) 0.04 K/uL Sodium Level 136 mmol/L Potassium Level 3.8 mmol/L Chloride Level 105 mmol/L Carbon Dioxide Level 21 mmol/L Anion Gap 10.0 mmol/L Blood Urea Nitrogen 20 mg/dl Creatinine 0.71 mg/dl Est Creatinine Clear Calc Drug Dose 43.2 ml/min Estimated GFR () 88.8 Estimated GFR (Non- 76.6 BUN/Creatinine Ratio 28.3 Random Glucose 140 mg/dl Calcium Level 8.5 mg/dl Test 10/02/17 09:28 10/02/17 11:45 Prothrombin Time 10.9 SECONDS Prothromb Time International Ratio 1.0 Activated Partial Thromboplast Time 28.0 SECONDS Partial Thromboplastin Ratio 1.1 25-Hydroxy Vitamin D Total 16.9 ng/ml Bedside Glucose 317 mg/dl (Keely Duval, ROCKC) Assessment and Plan Acute non displaced fracture of the right femur sp/ Fall in a 87 yo female with A. Fib, DM, HTN, Acute non-displaced fracture of right proximal femur s/p mechanical fall: - Admitted to med/surg - Hold Xarelto for upcoming ortho procedure - Denies need for pain medication at this time - Vitamin D= 16.9- increase Vitamin D supplement from 1000 IU daily to 2000 IU daily - Orthopedics consulted, appreciate recommendations- planning for repair on 10/03 - Cardiology consulted- continue w/ procedure Chronic a. fib, HTN: - Continue Metoprolol 100 mg daily and Diltiazem 120 mg daily - Hold Xarelto as above Hypothyroidism: Continue Synthroid 125 mcg daily T2DM: - Continue Lantus 10 u daily- will hold tonight due to NPO after midnight - BSG ACHS and ISS Diarrhea: - Patient states diarrhea is not uncommon for her, usually occurs when on liquid diet (which patient was, advanced diet) - No recent use of antibiotic therapy or h/o c.diff - RN to continue to follow GI prophylaxis: Zantac DVT prophylaxis: As per surgical team Code Status: LEVEL I, FULL until ortho procedure completed, then change status to LEVEL V, DNR Dispo: From home, will likely need rehab- PT/OT once able and CM consulted (Keely Duval PA-C) I personally interviewed and examined the patient. I agree with history of present illness and physical exam mentioned above, I also performed my own history taking and examination. Past medical history and review of system has been obtained by myself I reviewed all pertinent labs and studies Reviewed current medications I discussed and formulated of the assessment and plan mentioned above. Please refer to the Summary mentioned below. General Appearance: not in acute distress Eyes: normal Sclerae, extraocular muscle intact ENT: hearing grossly normal Neck: supple Respiratory/Chest: normal air entry bilateral ,no respiratory distress, no accessory muscle use Cardiovascular: regular rate, rhythm, no murmur Abdomen: non tender, soft, no masses Extremities: no edema Neurologic/Psychiatric: Awake alert oriented times place and person moves all extremities sensation intact cranial nerves II-12 appear to be intact Skin: normal color, warm/dry, no rash 87-year-old female presented to the ED status post fall with nondisplaced fracture of right femur Patient also has A. fib/diabetes mellitus/hypertension Hold Xarelto Nothing by mouth from midnight Vitamin D supplement Continue home medications including metoprolol/Diltiazem/Synthroid Kathleen Miller MD, [facility] hospitalist group (Kathleen Johnson MD)
[2017-10-02 15:18] VITALS: BP 112/72; PULSE 63; TEMP 37; O2SAT 96
[2017-10-02] MEDS ORDERED: ERGOCALCIFEROL 50,000 INTER.UNIT CAP PO SCH (19:00)
[2017-10-02 23:08] VITALS: BP 150/77; PULSE 98; TEMP 36.6; O2SAT 95
[2017-10-03] VITALS (8 sets, daily range): BP systolic 112–151; BP diastolic 64–84; PULSE 71–94; TEMP 36.5–37; O2SAT 95–100; Ht 162.6 cm; Wt 49.0 kg
[2017-10-03] MEDS ORDERED: NURSING VERBAL MED ORDER ONE ×2 (01:45→18:15)
[2017-10-03] MEDS ORDERED: CEFAZOLIN SOD 1000MG/7.5 ML IV PUSH IV SCH (06:00)
[2017-10-03] MEDS: INSULIN ASPART 100 UNITS/ML 3 ML PEN SC SCH ×4 (06:14→21:13)
[2017-10-03] MEDS: LEVOTHYROXINE 125 MCG TAB PO SCH (06:14)
[2017-10-03] MEDS ORDERED: BUPIVACAINE 0.5 % 5 MG/1 ML PF 10ML VIAL ONE (06:30)
[2017-10-03 07:08] LABS: HEMATOCRIT 34.9 % (37-47); HEMOGLOBIN 11.7 g/dL (12.0-16.0); MEAN CELL VOLUME 90.2 fL (80-100); MEAN CORPUSCULAR HEMOGLOBIN 30.2 pg (25-34); MEAN CORPUSCULAR HGB CONC 33.5 g/dl (32-36); MEAN PLATELET VOLUME 9.6 fL (7.4-10.4); PLATELET COUNT 169 K/uL (130-400); RED CELL DISTRIBUTION WIDTH CV 13.9 % (11.5-14.5); RED CELL DISTRIBUTION WIDTH SD 45.8 fL (36.4-46.3); WHITE BLOOD COUNT 7.82 K/uL (4.8-10.8)
[2017-10-03 07:38] LABS: CALCIUM 8.3 mg/dl (8.5-10.1); CREATININE 0.86 mg/dl (0.60-1.20); POTASSIUM 3.8 mmol/L (3.5-5.1)
[2017-10-03] MEDS: CEROVITE ADV FORMULA TAB PO SCH (07:58)
[2017-10-03] MEDS: RANITIDINE HCL 150 MG TAB PO SCH ×2 (07:58→21:06)
[2017-10-03] MEDS: CHOLECALCIFEROL 1000 INTER.UNIT TAB PO SCH (07:59)
[2017-10-03] MEDS: METOPROLOL SUCC 50MG EXT REL TAB PO SCH (07:59)
[2017-10-03] MEDS: CYANOCOBALAMIN 500 MCG TAB (VIT B-12) PO SCH (07:59)
[2017-10-03] MEDS: DILTIAZEM HCL 120 MG EXT REL CAP PO SCH (07:59)
[2017-10-03] MEDS ORDERED: PHARMACY GLYCEMIC MGMT CONSULT PRN (08:26)
[2017-10-03] MEDS ORDERED: INSULIN GLARGINE SOLOSTAR 100 UNITS/ML 3 ML PEN SC SCH (09:00)
[2017-10-03] MEDS ORDERED: MIDAZOLAM HCL 1 MG/ML 2ML VIAL ONE (09:10)
[2017-10-03] MEDS ORDERED: PROPOFOL IV EMULSION 10 MG/ML 20 ML VIAL IV ONE ×2 (09:10→11:59)
[2017-10-03] MEDS ORDERED: FENTANYL CITRATE INJ 50 MCG/1 ML 2 ML VIAL ONE (09:10)
--- NOTE | 2017-10-03 09:30 | History & Physical Bridge Note ---
H&P Re-Evaluation Bridge Note: I have examined the patient, reviewed the History & Physical and in the interval since the performance of the History & Physical I have noted the following changes of clinical significance: No changes noted
[2017-10-03 09:42] LABS: HEMOGLOBIN A1C 8.4 % (4.5-5.6)
[2017-10-03] MEDS ORDERED: PHENYLEPHRINE HCL INJ 10 MG/ML VIAL ONE (11:17)
[2017-10-03] MEDS ORDERED: FENTANYL CITRATE INJ 50 MCG/1 ML 2 ML VIAL IV PRN (11:30)
[2017-10-03] MEDS ORDERED: ATROPINE SULFATE 0.1 MG/ML 5ML SYR IV PRN (11:30)
[2017-10-03] MEDS ORDERED: MEPERIDINE HCL 25 MG/ML CARP IV PRN (11:30)
[2017-10-03] MEDS ORDERED: LABETALOL HCL IV 5 MG/ML 20ML IV PRN (11:30)
[2017-10-03] MEDS ORDERED: HYDROmorphone INJ 1 MG/ML SYR IV PRN ×2 (11:30→15:30)
[2017-10-03] MEDS ORDERED: EpHEDrine SULFATE INJ 50 MG/ML AMP IV PRN (11:30)
[2017-10-03] MEDS ORDERED: ONDANSETRON INJ 2 MG/ML 2 ML VIAL IV PRN ×2 (11:30→12:45)
--- NOTE | 2017-10-03 12:02 | [facility] Post Operative Brief Note ---
Immediate Operative Summary Operative Date Oct 03, 2017. Pre-Operative Diagnosis Right hip nondisplaced intertrochanteric hip fracture Post-Operative Diagnosis Right hip nondisplaced intertrochanteric hip fracture Procedure(s) Performed Right Hip Trochanteric Femoral Rodding Surgeon Dr. Jose Dos Santos Corporate Logistics Manager Surgeon(s) Amy Terry PA-C, mehdi larkin student Estimated Blood Loss 20ML Findings Consistent with Post-Op Diagnosis Specimens no specimens noted per surgeon Dr. Jose Dos Santos Drains None Anesthesia Type Spinal MAC Complication(s) none Disposition Accompanied Pt To Recover: no Disposition: Recovery Room / PACU
--- NOTE | 2017-10-03 12:23 | DIAGNOSTIC IMAGING REPORT ---
INTRAOPERATIVE RADIOGRAPHS CLINICAL HISTORY: Open reduction and internal fixation of the right hip. Fluoroscopy time: 126 seconds FINDINGS: 4 spot fluoroscopic views of the right hip are correlated with radiographs dated 10/01/2017. Intertrochanteric and intramedullary nails have been placed, transfixing an intertrochanteric fracture. Near-anatomic alignment is maintained. A single cortical lag screw transfixes the distal aspect of the intramedullary nail. The Orthopedic hardware appears intact. IMPRESSION: Intraoperative images from open reduction and internal fixation of the right hip as above. Electronically signed by: Sonny Plummer M.D. 10/03/2017 12:22 PM Dictated Date/Time: 10/03/2017 12:20 PM
[2017-10-03] MEDS ORDERED: MoRPHine SULFATE 2 MG/ML CARP IV PRN ×2 (12:45→15:30)
[2017-10-03] MEDS ORDERED: TRAMADOL HCL 50 MG TAB PO PRN (12:45)
--- NOTE | 2017-10-03 12:53 | [facility] Operative Report ---
Operative Report Operative Date Oct 03, 2017. Pre-Operative Diagnosis Right hip nondisplaced intertrochanteric hip fracture Post-Operative Diagnosis Right hip nondisplaced intertrochanteric hip fracture Procedure(s) Performed Right Hip Trochanteric Femoral Rodding Surgeon Dr. Jose Dos Santos Lithopone Mill Worker Surgeon(s) Amy Terry PA-C, Sherie HAYWOOD student Estimated Blood Loss 20ML Findings right intertrochanteric hip fracture Specimens no specimens noted per surgeon Dr. Jose Dos Santos Drains None Anesthesia spinal Complication(s) None Disposition Recovery Room / PACU Indications Patient is an 87 year old female, s/p fall injuring right hip. She was admitted to the hospital. X-rays were taken and she was found to have a right nondisplaced intertrochanteric hip fracture. Surgical intervention recommended , risks/complications discussed, informed consent obtained. Description of Procedure Patient was taken to the operating room, placed under spinal anesthesia, given 1gm IV Ancef for surgical prophylaxis. Time out performed, prepped and draped in routine sterile fashion. I was present during the entire case, please see Dr. Dos Santos's operative report for further details. Patient was awakened and taken to the recovery room in stable condition. I attest to the content of the Intraoperative Record and any orders documented therein. Any exceptions are noted below.
--- NOTE | 2017-10-03 13:12 | Anesthesiology Progress Note ---
Anesthesia Post Op Note Date & Time Oct 03, 2017 at 13:12 Vital Signs Pain Intensity: 0 Vital Signs Past 12 Hours Date Time Temp Pulse Resp B/P (MAP) Pulse Ox O2 Delivery O2 Flow Rate FiO2 10/03/17 12:55 36.8 81 15 127/60 97 Nasal Cannula 2 10/03/17 12:45 77 16 110/60 95 Nasal Cannula 2 10/03/17 12:39 36.6 63 18 110/73 94 Nasal Cannula 2 10/03/17 09:01 Room Air 10/03/17 07:30 37.0 94 18 149/84 (105) 97 Room Air Notes Mental Status: alert / awake / arousable, participated in evaluation Pt Amnestic to Procedure: Yes Nausea / Vomiting: adequately controlled Pain: adequately controlled Airway Patency, RR, SpO2: stable & adequate BP & HR: stable & adequate Hydration State: stable & adequate Neuraxial Anesthesia: was administered, sensory block is resolving Anesthetic Complications: no major complications apparent
--- NOTE | 2017-10-03 14:12 | Hospitalist Progress Note ---
Hospitalist Progress Note Date of Service Oct 03, 2017. (Keely Duval, YINKA) I personally interviewed and examined the patient. I agree with history of present illness and physical exam mentioned above, I also performed my own history taking and examination. Past medical history and review of system has been obtained by myself I reviewed all pertinent labs and studies Reviewed current medications I discussed and formulated of the assessment and plan mentioned above. Please refer to the Summary mentioned below. General Appearance: not in acute distress Eyes: normal Sclerae, extraocular muscle intact ENT: hearing grossly normal Neck: supple Respiratory/Chest: normal air entry bilateral ,no respiratory distress, no accessory muscle use Cardiovascular: regular rate, rhythm, no murmur Abdomen: non tender, soft, no masses Extremities: no edema Neurologic/Psychiatric: Awake alert oriented times place and person moves all extremities sensation intact cranial nerves II-12 appear to be intact Skin: normal color, warm/dry, no rash 87-year-old female presented to the ED status post fall with nondisplaced fracture of right femur Patient also has A. fib/diabetes mellitus/hypertension S/P right hip trochanteric femoral rodding Hold Xarelto tolerating lunch Vitamin D supplement Continue home medications including metoprolol/Diltiazem/Synthroid switched morphine to Dilaudid Kathleen Miller MD, [facility] hospitalist group (Kathleen Johnson MD) Subjective Pt evaluation today including: conversation w/ patient, conversation w/ family , physical exam, lab review, review of studies, review of inpatient medication list Voiding: no voiding problems Patient resting in bed. Procedure went well. Tolerated lunch. Pain is well controlled. No BM/flatus postop. Patient denies any fever, chills, sweats, lightheadedness, dizziness, vision changes, CP, palpitations, edema, SOB, wheezing, cough, abdominal pain, nausea, vomiting, diarrhea, urinary symptoms, melena, numbness/tingling, weakness, muscle/joint pain, anxiety/depression, active bleeding, or new skin discoloration/changes. (Keely Duval, PAAmberC) Medications Current Inpatient Medications Medications (Trade) Dose Ordered Sig/Maryann Route Start Time Stop Time Status Last Admin Dose Admin Acetaminophen (Tylenol Tab) 650 mg Q4H PRN PO 10/01/17 15:15 10/31/17 15:14 10/01/17 15:41 650 MG Glucose (Glucose 40% Gel) 15-30 GRAMS 15 GRAMS... UD PRN PO 10/01/17 15:15 10/31/17 15:14 Glucose (Glucose Chew Tab) 4-8 Tablets 4 Tabl... UD PRN PO 10/01/17 15:15 10/31/17 15:14 Dextrose (Dextrose 50% 50ML Syringe) 25-50ML OF 50% DW IV FOR... UD PRN IV 10/01/17 15:15 10/31/17 15:14 Glucagon (Glucagon Inj) 1 mg UD PRN SQ 10/01/17 15:15 10/31/17 15:14 Cholecalciferol (Vitamin D Tab) 1,000 inter.unit DAILY PO 10/02/17 09:00 11/01/17 08:59 10/03/17 07:59 1,000 INTER.UNIT Diltiazem HCl (TIAzac CAP) 120 mg QAM PO 10/02/17 09:00 11/01/17 08:59 10/03/17 07:59 120 MG Levothyroxine Sodium (Synthroid Tab) 125 mcg DAILYBB PO 10/02/17 06:00 11/01/17 06:59 10/03/17 06:14 125 MCG Ranitidine HCl (zANTac TAB) 150 mg BID PO 10/01/17 21:00 10/31/17 20:59 10/03/17 07:58 150 MG Cyanocobalamin (Vitamin B-12 Tab) 1,000 mcg DAILY PO 10/02/17 09:00 11/01/17 08:59 10/03/17 07:59 1,000 MCG Metoprolol Succinate (Toprol Xl Tab) 100 mg DAILY PO 10/02/17 09:00 11/01/17 08:59 10/03/17 07:59 100 MG Multivitamins/ Minerals (Multivitamin W/ Minerals Tab) 1 tab DAILY PO 10/02/17 09:00 11/01/17 08:59 10/03/17 07:58 1 TAB Cefazolin Sodium (Cefazolin 1000mg Iv Push) 1,000 mg PREOP IV 10/03/17 06:00 10/04/17 05:59 Insulin Aspart (novoLOG ASPART) SLIDING SCALE If C... Q6 SC 10/03/17 06:00 11/02/17 05:59 10/03/17 06:14 5 UNITS Insulin Glargine (Lantus Solostar Pen) 10 units DAILY SC 10/03/17 09:00 11/02/17 08:59 10/03/17 09:31 10 UNITS Miscellaneous Information (Consult Glycemic Management Pharmacy) 1 ea UD PRN N/A 10/03/17 08:26 11/02/17 08:25 Fentanyl Citrate (Fentanyl Inj) 50 mcg Q5M PRN IV 10/03/17 11:30 10/03/17 18:00 Hydromorphone HCl (Dilaudid Inj) 0.5 mg Q5M PRN IV 10/03/17 11:30 10/03/17 18:00 Meperidine HCl (Demerol Inj) 25 mg Q5M PRN IV 10/03/17 11:30 10/03/17 18:00 Ondansetron HCl (Zofran Inj) 4 mg ONE PRN IV 10/03/17 11:30 10/03/17 18:00 Labetalol HCl (Normodyne IV) 5 mg Q5M PRN IV 10/03/17 11:30 10/03/17 18:00 Ephedrine Sulfate (EpHEDrine SULFATE INJ) 5 mg Q5M PRN IV 10/03/17 11:30 10/03/17 18:00 Atropine Sulfate (Atropine Sulfate 0.1mg/ml Inj) 0.5 mg Q1M PRN IV 10/03/17 11:30 10/03/17 18:00 Cefazolin Sodium 1000 mg/Syringe 5 ml @ 100 mls/hr Q8H IV 10/03/17 18:00 10/04/17 02:02 Ondansetron HCl (Zofran Inj) 4 mg Q6H PRN IV 10/03/17 12:45 11/02/17 12:44 Oxycodone HCl (Roxicodone Immediate Rel Tab) 5 mg Q4H PRN PO 10/03/17 12:45 10/17/17 12:44 Morphine Sulfate (MoRPHine SULFATE INJ) 1 mg Q3H PRN IV 10/03/17 12:45 10/17/17 12:44 Tramadol HCl (Ultram Tab) 50mg for pain 1-5 100mg ... Q6H PRN PO 10/03/17 12:45 11/02/17 12:44 Rivaroxaban (Xarelto Tab) 20 mg QAM PO 10/04/17 09:00 11/03/17 08:59 (Keely Duval PA-C) Objective Vital Signs Date Time Temp Pulse Resp B/P (MAP) Pulse Ox O2 Delivery O2 Flow Rate FiO2 10/03/17 13:15 96 Nasal Cannula 2.0 10/03/17 13:15 36.7 77 16 126/72 (90) 96 Nasal Cannula 2.0 10/03/17 12:55 36.8 81 15 127/60 97 Nasal Cannula 2 10/03/17 12:45 77 16 110/60 95 Nasal Cannula 2 10/03/17 12:39 36.6 63 18 110/73 94 Nasal Cannula 2 10/03/17 09:01 Room Air 10/03/17 07:30 37.0 94 18 149/84 (105) 97 Room Air 10/02/17 23:08 36.6 98 18 150/77 (101) 95 Room Air 10/02/17 20:00 Room Air 10/02/17 15:18 37.0 63 17 112/72 (85) 96 Room Air (Keely Duval PA-C) Physical Exam General Appearance: no apparent distress Eyes: normal inspection, PERRL ENT: hearing grossly normal Neck: supple Respiratory/Chest: lungs clear, no respiratory distress, no accessory muscle use Cardiovascular: + irregularly irregular (rate controlled ) Abdomen: normal bowel sounds, non tender, soft Extremities: no pedal edema, no calf tenderness, + pertinent finding (+TEDs on ) Neurologic/Psychiatric: alert, normal mood/affect, oriented x 3 Skin: normal color, warm/dry, no rash (Keely Duval PA-C) Laboratory Results Last 24 Hours Test 10/02/17 17:13 10/02/17 21:01 10/03/17 05:45 10/03/17 06:52 Bedside Glucose 86 mg/dl 293 mg/dl 287 mg/dl White Blood Count 7.82 K/uL Red Blood Count 3.87 M/uL Hemoglobin 11.7 g/dL Hematocrit 34.9 % Mean Corpuscular Volume 90.2 fL Mean Corpuscular Hemoglobin 30.2 pg Mean Corpuscular Hemoglobin Concent 33.5 g/dl RDW Standard Deviation 45.8 fL RDW Coefficient of Variation 13.9 % Platelet Count 169 K/uL Mean Platelet Volume 9.6 fL Sodium Level 133 mmol/L Potassium Level 3.8 mmol/L Chloride Level 102 mmol/L Carbon Dioxide Level 22 mmol/L Anion Gap 9.0 mmol/L Blood Urea Nitrogen 19 mg/dl Creatinine 0.86 mg/dl Est Creatinine Clear Calc Drug Dose 35.6 ml/min Estimated GFR () 70.4 Estimated GFR (Non- 60.7 BUN/Creatinine Ratio 21.9 Random Glucose 313 mg/dl Estimated Average Glucose 194 mg/dl Hemoglobin A1c 8.4 % Calcium Level 8.3 mg/dl Beta-Hydroxybutyric Acid 11.11 mg/dL Test 10/03/17 12:43 Bedside Glucose 301 mg/dl (Keely Duval, PA-C) Assessment and Plan Acute non displaced fracture of the right femur sp/ Fall in a 87 yo female with A. Fib, DM, HTN, Acute non-displaced fracture of right proximal femur s/p mechanical fall s/p R hip trochanteric femoral rodding by Dr. Dos Santos on 10/03 - Admitted to med/surg - Held Xarelto for ortho procedure- resuming tomorrow as per surgical team - Vitamin D= 16.9- increase Vitamin D supplement from 1000 IU daily to 2000 IU daily - Orthopedics consulted, appreciate recommendations- Surgical management, pain management, PT/OT, and DVT prophylaxis as per ortho - Cardiology consulted- continue w/ procedure Chronic a. fib, HTN: - Continue Metoprolol 100 mg daily and Diltiazem 120 mg daily - Hold Xarelto as above Hypothyroidism: Continue Synthroid 125 mcg daily T2DM w/ hyperglycemia- hgbA1c 8.4%: - Pharmacy consulted for glycemic management - BSG ACHS and ISS Diarrhea- RESOLVED: - Patient states diarrhea is not uncommon for her, usually occurs when on liquid diet (which patient was, advanced diet) - No recent use of antibiotic therapy or h/o c.diff - RN to continue to follow GI prophylaxis: Zantac DVT prophylaxis: As per surgical team- resume Xarelto tomorrow Code Status: LEVEL I, FULL until ortho procedure completed, change status to LEVEL V, DNR tomorrow Dispo: From home- hoping for [facility] at discharge- PT/OT once able and CM consulted (Keely Duval, PA-C)
[2017-10-03] MEDS ORDERED: INSULIN GLARGINE SOLOSTAR 100 UNITS/ML 3 ML PEN SC ONE ×2 (14:45→15:00)
[2017-10-03] MEDS ORDERED: INSULIN ASPART 100 UNITS/ML 3 ML PEN SC STA (14:59)
--- NOTE | 2017-10-03 15:11 | Pharmacy Progress Note ---
Glycemic Control Intl Consult Date of Service Oct 03, 2017. Scope Glycemic Pharmacist consulted by Raffaele on 10/03/17 for glycemic control and to write orders per [facility] inpatient glycemic control protocol. Objective Weight (Kilograms): 49.000 Accuchecks BSG (last 24hrs): Test 10/02/17 17:13 10/02/17 21:01 10/03/17 05:45 10/03/17 06:52 Bedside Glucose 86 mg/dl (70-90) 293 mg/dl (70-90) 287 mg/dl (70-90) Random Glucose 313 mg/dl (70-99) Test 10/03/17 12:43 Bedside Glucose 301 mg/dl (70-90) Laboratory Data (last 24hrs) Test 10/03/17 06:52 Anion Gap 9.0 mmol/L BUN/Creatinine Ratio 21.9 Blood Urea Nitrogen 19 mg/dl Creatinine 0.86 mg/dl Hemoglobin A1c 8.4 % Potassium Level 3.8 mmol/L Sodium Level 133 mmol/L White Blood Count 7.82 K/uL HbA1c Test 10/03/17 06:52 Hemoglobin A1c 8.4 % (4.5-5.6) H Recent Pertinent Medications Outpatient Anti-diabetic Regimen: * Lantus 10-12 units SQ qPM * Novolog 2-6 units SQ TID with meals * A1c = 8.4% 10/03/17 Risk Factors for Insulin Resistance: * Steroids: none * Recent Surgery: OR today for hip repair * Diet: Type 2 diabetic (NPO after midnight last night for OR today -- diet has since been resumed) Assessment & Plan ASSESSMENT: * Ms Berg is an 87yo diabetic female admitted s/p fall w/ R femur fracture. Patient was NPO after midnight last night in preparation for OR today. Diet has been resumed post-op. * Patient has been significantly hyperglycemic today, with no apparent cause? Perhaps in response to stress from her injury? * Yesterday patient's BSG improved from 317 --> 86 after receiving correctional insulin. For this reason, I hesitate to provide additional coverage for her hyperglycemia right now. Expect that BSG will again improve markedly after her "lunchtime" coverage. * Will provide small supplemental dose of Lantus now and add overnight accu- checks in order to provide additional correction overnight if needed. * Would strongly consider providing IV insulin infusion if BSGs do not improve. PLAN FOR INPATIENT GLYCEMIC CONTROL: * Basal insulin with LANTUS 10 units SQ daily * give 5 units x1 additional dose this afternoon * Correctional Insulin with NOVOLOG per scale ACHS and at 00,04 * Goal Range: Low 140 mg/dL - High 180 mg/dL * Correction Factor: 25 mg/dL/unit * Nutritional / Prandial insulin per carb ratio of 1 unit per 10 grams CHO consumed * Please note that the plan above was derived based on current level of insulin resistance and hospital stress. These recommendations are appropriate for inpatient admission only. Plan of care upon discharge will need to be reassessed to avoid potential outpatient hypo/hyperglycemia. Thank you.
--- NOTE | 2017-10-03 15:19 | OPERATIVE REPORT ---
DATE OF OPERATION: 10/03/2017 PREOPERATIVE DIAGNOSIS: Nondisplaced right hip intertrochanteric fracture, POSTOPERATIVE DIAGNOSIS: Same. PROCEDURE: Right hip trochanteric femoral nail. SURGEON: Dr. Dos Santos. BONE TENDER: Amy Terry. No resident or fellow available. SECOND BONE TENDER: Sherie Diaz, physician's office support assistant student. ANESTHESIA: Spinal with sedation. INDICATIONS OF PROCEDURE: The patient is an 87-year-old female who is status post a fall resulting in a nondisplaced right hip intertrochanteric fracture. She was on Xarelto. This medication was stopped. She has had preoperative evaluation with cardiology and medicine and it has been 72 hours since her last blood thinner dose. Treatment options, risks, benefits were discussed and she elected to proceed with surgery. PROCEDURE IN DETAIL: Informed consent was obtained. The patient was identified as Barbara Berg. She identified the operative site as the right hip. I marked it with my initials. A preop surgical time out was performed. A preop dose of IV antibiotics was given. She was taken to the operating room, positioned supine on the fracture table. Previously the spinal anesthetic and sedation were administered. The left leg was placed in 90 degrees flexion, slight external rotation and abduction as allowed by the range of motion of her hip. The right leg was placed into longitudinal traction with well padded boot. A padded perineal post was utilized along with the shower curtain. The leg was prepped and draped in usual sterile fashion with a prescrub. Gentle longitudinal traction and internal rotation were performed and prior to surgery the fracture was anatomically reduced and aligned. Confirmation of x-ray views performed. She had a little bit of posterior sag which was corrected with upward pressure on the lesser trochanter. DVT prophylaxis will be done with early patient mobility and placing her back on her blood thinner postoperatively. Bony prominences were inspected and padded. The torso was secured to the table. Fluoroscopic guidance was utilized throughout the case. A 5 cm incision was made just proximal to the greater trochanter. The skin and subcutaneous tissues and fascia david were divided in line with the incision and the greater trochanter was identified. A guidepin was inserted and adjusted x3 so that it was in the central portion of the trochanter paralleling the shaft. This was overreamed with the large barrel polisher followed by insertion of an intramedullary guidewire. This was confirmed to be within the medullary canal on multiplanar fluoroscopy. The guidewire did track anteriorly towards the knee and I did not ream completely down to the knee to avoid breaching the anterior cortex. Reaming began at 10 and there was good cortical chatter at the isthmus and this proceeded 0.5 mm increments up to 12.5 mm. The length of the kacey was determined using the measuring device. A 360 mm kacey was then inserted mostly by hand power and then with a mallet. The guidewire was withdrawn after the kaecy was across the fracture. After seating the kacey adequately a guide pin was then drilled percutaneously using the provided drill sleeve. An additional lateral incision was made. This was found to be in the center-center position of the head. The length was determined to be 90 and the lateral reamer and triple reamer were utilized followed by insertion of the 90 mm spiral blade. This was within 5-7 mm of the subchondral bone on the AP and lateral views. Due to the hardness of her bone final impaction resulted in slight lateral distraction of the fracture. Traction was let off and compression was applied. The set screw was advanced and the proximal apparatus was removed. The fracture was well reduced with slight distraction and the implant was in good position. A distal interlocking screw was inserted percutaneously using the perfect lovelock technique in the dynamic slot. Precision Grinder fluoroscopic images were obtained. The wounds were irrigated with sterile saline. The distal incisions were closed with 2-0 Vicryl and mian at the proximal incision #1 for the fascia, 0, 2-0 and mian. A soft sterile dressing was applied and the patient was then awakened from anesthesia without difficulty and taken to recovery room in stable condition. There were no specimens or complications. Counts were correct at the end of case. Blood loss was approximately 20 mL. At the conclusion of the operation, I spoke to patient's family and informed them of my findings. Postoperative instructions were given. She is on the medicine service. She will have physical therapy and will be able to weightbear as tolerated. She will eventually need an osteoporosis workup. She is currently vitamin D deficient. She may weightbear as tolerated. Her Xarelto will be started the morning after surgery. The components inserted were was a 90 mm spiral blade and an 11 x 360 [employer]ynthe[employer] trochanteric femoral nail with a 42 mm distal interlocking screw which was changed x1. I attest to the content of the Intraoperative Record and any orders documented therein. Any exception s are noted below.
[2017-10-03] MEDS ORDERED: NURSING DECISION MEDICATION ORDER SCH (18:00)
[2017-10-03] MEDS ORDERED: METOCLOPRAMIDE HCL INJ 5 MG/ML 2 ML VIAL ONE (18:09)
[2017-10-03] MEDS ORDERED: METOCLOPRAMIDE HCL INJ 5 MG/ML 2 ML VIAL IV ONE (18:15)
[2017-10-03] MEDS: CEFAZOLIN IV 1,000 MG in SYRINGE 0 ML IV SCH (18:18)
[2017-10-03] MEDS: SODIUM CHLORIDE 0.9% 1000ML 1,000 ML IV SCH (18:37)
[2017-10-04] VITALS (7 sets, daily range): BP systolic 108–132; BP diastolic 64–83; PULSE 89–102; TEMP 36.7–36.8; O2SAT 93–98
[2017-10-04] MEDS: CEFAZOLIN IV 1,000 MG in SYRINGE 0 ML IV SCH (01:17)
[2017-10-04] MEDS: INSULIN ASPART 100 UNITS/ML 3 ML PEN SC SCH ×6 (04:00→21:00)
[2017-10-04] MEDS: OXYCODONE HCL IR 5 MG TAB (IMMEDIATE RELEASE) PO PRN ×2 (04:05→21:19)
[2017-10-04] MEDS: LEVOTHYROXINE 125 MCG TAB PO SCH (05:30)
[2017-10-04 06:56] LABS: HEMATOCRIT 31.8 % (37-47); HEMOGLOBIN 10.5 g/dL (12.0-16.0); MEAN CELL VOLUME 90.9 fL (80-100); MEAN PLATELET VOLUME 9.9 fL (7.4-10.4); PLATELET COUNT 165 K/uL (130-400); RED CELL DISTRIBUTION WIDTH CV 13.8 % (11.5-14.5); RED CELL DISTRIBUTION WIDTH SD 45.3 fL (36.4-46.3); WHITE BLOOD COUNT 10.33 K/uL (4.8-10.8)
[2017-10-04 07:28] LABS: CALCIUM 8.6 mg/dl (8.5-10.1); CREATININE 0.9 mg/dl (0.60-1.20); POTASSIUM 4.1 mmol/L (3.5-5.1)
[2017-10-04] MEDS: METOPROLOL SUCC 50MG EXT REL TAB PO SCH (07:34)
[2017-10-04] MEDS: RANITIDINE HCL 150 MG TAB PO SCH ×2 (07:34→21:15)
[2017-10-04] MEDS: CHOLECALCIFEROL 1000 INTER.UNIT TAB PO SCH (07:34)
[2017-10-04] MEDS: CYANOCOBALAMIN 500 MCG TAB (VIT B-12) PO SCH (07:34)
[2017-10-04] MEDS: CEROVITE ADV FORMULA TAB PO SCH (07:34)
[2017-10-04] MEDS: DILTIAZEM HCL 120 MG EXT REL CAP PO SCH (07:35)
--- NOTE | 2017-10-04 08:35 | Orthopedic Progress Note ---
Orthopedic Progress Note Date of Service Oct 04, 2017. Subjective Post OP Day: 1 Reports: feeling well, pain controlled w PO medications, Denies: complaints, chest pain, SOB, nausea / vomiting, light headedness, calf pain Additional Notes: States was a little nauseous yesterday with pain medication, the pain med she's on now is working better and not making her sick. She's eating breakfast, has not been walking, but has been out of bed to use the bedside commode. Objective calves soft nontender, N/V intact, capillary refill less than 2 sec., dressing C /D/I, A&O x3, toes mobile Distal pulse 1+, full ankle ROM, with 5/5 strength with dorsiflexion and plantarflexion. Date Time Temp Pulse Resp B/P (MAP) Pulse Ox O2 Delivery O2 Flow Rate FiO2 10/04/17 07:43 93 Room Air 10/04/17 04:00 36.7 97 17 124/73 (90) 98 Nasal Cannula 2.0 10/03/17 23:36 36.7 85 18 139/73 (95) 100 Nasal Cannula 2.0 10/03/17 20:10 Nasal Cannula 2.0 10/03/17 19:48 36.6 84 16 123/72 (89) 98 Nasal Cannula 2.0 10/03/17 16:17 36.6 87 18 151/72 (98) 98 Nasal Cannula 2.0 10/03/17 16:00 Nasal Cannula 2.0 10/03/17 15:09 36.5 71 18 112/64 (80) 98 Nasal Cannula 2.0 10/03/17 14:15 80 18 144/74 (97) 95 10/03/17 13:45 71 18 128/75 (92) 96 10/03/17 13:15 96 Nasal Cannula 2.0 10/03/17 13:15 36.7 77 16 126/72 (90) 96 Nasal Cannula 2.0 10/03/17 12:55 36.8 81 15 127/60 97 Nasal Cannula 2 10/03/17 12:45 77 16 110/60 95 Nasal Cannula 2 10/03/17 12:39 36.6 63 18 110/73 94 Nasal Cannula 2 10/03/17 09:01 Room Air Laboratory Results 24 Hours: Test 10/04/17 06:34 Hematocrit 31.8 % Hemoglobin 10.5 g/dL Assessment & Plan Assessment: POD 1 - s/p ORIF right hip fracture Plan: She may be out of bed, weight bear as tolerated right lower extremity with assistance of a walker Xarelto resumed this morning Teds/SCD's for DVT prophylaxis Regular diet as ordered Pain medication as prescribed Ice to right hip as needed for pain/swelling OOB with PT today Authorization pending for Idalmis Davida Will continue to follow during her hospital stay Will discuss findings with Dr. Dos Santos
--- NOTE | 2017-10-04 08:43 | Consultant Recommendations ---
Plastics Fitter Recommendations Date of Service Oct 04, 2017. Plastics Fitter Recommendations Weight bear as tolerated right lower extremity with assistance of a walker Fish stockings daily - on during day, off at night Change dressings right hip daily and PRN. Okay to shower starting Monday10/07/17, pat incision dry. Redress right hip as needed. Okay to leave the right hip incision open to air if clean and dry. May do full range of motion all joints right lower extremity May increase activities as tolerated. May do strengthening exercises in physical therapy as tolerated. Follow-up with Dr. Dos Santos on 10/17/17 at 10:45 a.m. Please call [phone] with questions, concerns, or need to reschedule appointment.
[2017-10-04] MEDS ORDERED: INSULIN GLARGINE SOLOSTAR 100 UNITS/ML 3 ML PEN SC SCH (09:00)
[2017-10-04] MEDS ORDERED: RIVAROXABAN 10 MG TAB PO SCH (09:00)
--- NOTE | 2017-10-04 09:07 | Clinical Documentation Query ---
CLINICAL DOCUMENTATION QUERY 87 year old female who presents to the Emergency Room with complaints of a sudden fall. H&P state patient as having CKD w/o staging. Documenting the stage of CKD will improve data integrity and will help clarify vague terms such as "renal insufficiency" or "chronic renal failure." In your clinical opinion is this patient being managed for: ( ) Chronic kidney disease, stage 2 (mild) ( ) Not Agree ( ) Other explanation of clinical findings (Please Explain) ( ) Unable to determine (Please Define) ( x ) Need to Discuss The medical record reflects the following clinical findings, treatment, and risk factors. Clinical Indicators: As above. GFR range while in-patient 60-70 Treatment: daily PRP monitoring Risk Factors: Age Please clarify and document your clinical opinion in the progress notes and discharge summary. Terms such as "probable", "suspected", "likely", "questionable", "possible", or "still to be ruled out" are acceptable. IF IN AGREEMENT, YOU MUST DOCUMENT ABOVE DIAGNOSTIC STATEMENT IN DAILY PROGRESS NOTES AND DISCHARGE SUMMARY. This document is not part of the patient's record. Thank You, Omar Guadalupe, YARED [phone]
--- NOTE | 2017-10-04 09:44 | Cardiology Follow-Up ---
Subjective Date of Service: Oct 04, 2017. Pt evaluation today including: conversation w/ patient, conversation w/ family , physical exam, chart review, lab review, review of studies, conversation w/ attending History of Present Illness Mrs Berg is a very pleasant 87 year old white female with history significant of Chronic Atrial Fibrillation (rate controlled and anticoagulated) , Hypertension, Dyslipidemia, Diabetes Mellitus type 2, LVH with Diastolic Dysfunction, Iron Deficiency Anemia, and Macular Degeneration, who was admitted to [facility] on 10/01/2017 after a fall which resulted in a right hip fracture. This is her cardiac post-op evaluation and she is POD #1 s/ p ORIF right hip performed by Dr. Dos Santos. The patient is doing well from the cardiac standpoint. She was able to get up from her bed this morning to use the bedside commode without any pain or limiting cardiopulmonary symptoms. She reports of experiencing a transient lightheadedness when she got up from the bed, but it lasted a few second in duration and it was not associated with nausea, vomiting, or syncope. The patient says she will be walking the hallway later this morning with physical therapist and she has been using her spirometer frequently post surgery. She was started on her Xarelto this morning and she denies any abnormal bleeding, such as hematuria, melena, hematochezia. She specifically denies any exertional chest pain, chest tightness, chest pressure, palpitation, exertional neck, jaw, back, or arm pain. She denies any shortness of breath, dyspnea on exertion or at rest, orthopnea, PND, dizziness, presyncope, syncope, peripheral edema. Social History Smoking Status: Former Smoker History of Alcohol Use: No Review of Systems Respiratory: No see HPI, No cough, No sputum, No wheezing, No shortness of breath, No dyspnea on exertion, No dyspnea at rest, No hemoptysis, No problem reported Cardiac: No see HPI, No chest pain, No orthopnea, No PND, No edema, No claudication, No palpitations, No problem reported Medications 1. Vitamin D 1000IU daily 2. Diltiazem CD 120mg daily 3. Toprol XL 100mg daily 4. Levothyroxine 125mcg daily 5. Ranitidine 150mg BID 6. NovoLog sliding scale insulin 7. Tylenol PRN 8. Vitamin B12 1000mcg daily 9. Multivitamin with minerals 1 tablet daily. 10. Xalreto 20mg qAM 11. Lantus 15 units SC daily. 12. Diuladid 3mg IV q3h PRN. 13. Oxycodone 5mg PO q4h PRN 14. Tramadol 500mg PO q6h PRN 15. Zofran 4mg IV q6h PRN Objective Vital Signs Past 12 Hours Date Time Temp Pulse Resp B/P (MAP) Pulse Ox O2 Delivery O2 Flow Rate FiO2 10/04/17 07:43 93 Room Air 10/04/17 07:35 36.8 102 18 132/83 (99) 94 Room Air 10/04/17 04:00 36.7 97 17 124/73 (90) 98 Nasal Cannula 2.0 10/03/17 23:36 36.7 85 18 139/73 (95) 100 Nasal Cannula 2.0 Last Recorded Weight-Kilograms: 49.000 Physical Exam Constitutional: General Apperance: heathly-appearing, well-nourished, well-developed Level of Distress: NAD Ambulation: ambulating normally Lungs: Respiratory effort: no dyspnea, good air movement Auscultation: CTA except as noted, no wheezing, no rales/crackles, no rhonchi Cardiovascular: Apical Impulse: not displaced Heart Auscultation: normal S1, normal S2, no rubs, no gallops, pertinent finding (irregularly irregular rhythm with a controlled ventricular response rate. A grade 1/6 basal systolic murmur. ) Peripheral Pulses: Radial Pulse: normal on the left, normal on the right Dorsalis Pedis Pulse: normal on the left, normal on the right Extremities: no cyanosis, no edema, no varicosities, no palpable cord, no ulcers Data Laboratory Results: Last 24 Hours Test 10/03/17 12:43 10/03/17 15:44 10/03/17 17:33 10/03/17 21:05 Bedside Glucose 301 mg/dl 320 mg/dl 347 mg/dl 196 mg/dl Test 10/04/17 00:11 10/04/17 03:58 10/04/17 06:34 10/04/17 08:24 Bedside Glucose 135 mg/dl 157 mg/dl 241 mg/dl White Blood Count 10.33 K/uL Red Blood Count 3.50 M/uL Hemoglobin 10.5 g/dL Hematocrit 31.8 % Mean Corpuscular Volume 90.9 fL Mean Corpuscular Hemoglobin 30.0 pg Mean Corpuscular Hemoglobin Concent 33.0 g/dl RDW Standard Deviation 45.3 fL RDW Coefficient of Variation 13.8 % Platelet Count 165 K/uL Mean Platelet Volume 9.9 fL Sodium Level 134 mmol/L Potassium Level 4.1 mmol/L Chloride Level 103 mmol/L Carbon Dioxide Level 21 mmol/L Anion Gap 10.0 mmol/L Blood Urea Nitrogen 22 mg/dl Creatinine 0.90 mg/dl Est Creatinine Clear Calc Drug Dose 34.1 ml/min Estimated GFR () 66.6 Estimated GFR (Non- 57.5 BUN/Creatinine Ratio 24.2 Random Glucose 190 mg/dl Calcium Level 8.6 mg/dl Imaging: - Fluoroscopy (10/03/2017): 4 spot fluoroscopic views of the right hip are correlated with radiographs dated 10/01/2017. Intertrochanteric and intramedullary nails have been placed, transfixing an intertrochanteric fracture. Near-anatomic alignment is maintained. A single cortical lag screw transfixes the distal aspect of the intramedullary nail. The Orthopedic hardware appears intact. EKG: None Telemetry reviewed: None Assessment and Plan ASSESSMENT/PLAN: Mrs Berg is a very pleasant 87 year old white female with history significant of Chronic Atrial Fibrillation (rate controlled and anticoagulated), Hypertension, Dyslipidemia, Diabetes Mellitus type 2, LVH with Diastolic Dysfunction, Iron Deficiency Anemia, and Macular Degeneration, who was admitted to [facility] on 10/01/2017 after a fall which resulted in a right hip fracture. This is her cardiac post-op evaluation and she is day 1 s/p ORIF right hip performed by Dr. Dos Santos. 1. Chronic Atrial Fibrillation (rate controlled with Diltiazem CD 120mg and Toprol XL 100mg and anticoagulated with Xarelto 20mg): The patient does not experience any symptoms attribute to her atrial fibrillation. She is doing well s/p ORIF right hip surgery from the cardiac standpoint. Recommend to continue giving patient her usual doses Toprol XL and Diltiazem CD and continue her on Xarelto 20mg daily. 2. LVH with Diastolic Dysfunction: Since her Echocardiogram (10/2016) shows that she has some diastolic dysfunction, recommend daily monitoring of her I&O, body weight, and use IV fluids judiciously. 3. DVT prophylaxis as per surgeon. Physical therapy as per protocol. From the cardiac standpoint, the patient is doing well and does not experience any limitation from her chronic atrial fibrillation. Thank you for giving us this opportunity to provide care for Mrs. Berg. We will continue to follow the patient during her hospital stay. MONICA Bermudez
--- NOTE | 2017-10-04 13:12 | Anesthesiology Progress Note ---
Anesthesia Post Op Note Date & Time Oct 04, 2017 at 13:11 Vital Signs Pain Intensity: 5.0 Vital Signs Past 12 Hours Date Time Temp Pulse Resp B/P (MAP) Pulse Ox O2 Delivery O2 Flow Rate FiO2 10/04/17 11:37 97 94 10/04/17 10:55 36.7 97 18 121/70 (87) 95 Room Air 10/04/17 07:43 93 Room Air 10/04/17 07:35 36.8 102 18 132/83 (99) 94 Room Air 10/04/17 04:00 36.7 97 17 124/73 (90) 98 Nasal Cannula 2.0 Notes Mental Status: alert / awake / arousable, participated in evaluation Nausea / Vomiting: adequately controlled Pain: adequately controlled Airway Patency, RR, SpO2: stable & adequate BP & HR: stable & adequate Hydration State: stable & adequate Awake, alert, pain improved with medication Rates as 0 at rest. VSS. No complaints with anesthesia care.
--- NOTE | 2017-10-04 13:40 | Pharmacy Progress Note ---
Pharmacy Glycemic Short Note 2 Date of Service Oct 04, 2017. Outpatient Anti-diabetic Regimen: * Lantus 10-12 units SQ qPM * Novolog 2-6 units SQ TID with meals * A1c = 8.4% 10/03/17 ASSESSMENT: 10/04/17: * Patient remains hyperglycemic today and is requiring more insulin than expected for her age/weight. * Lantus dose increased this morning. Will modify Novolog parameters slightly and continue to follow closely. 10/03/17 * Ms Berg is an 87yo diabetic female admitted s/p fall w/ R femur fracture. Patient was NPO after midnight last night in preparation for OR today. Diet has been resumed post-op. * Patient has been significantly hyperglycemic today, with no apparent cause? Perhaps in response to stress from her injury? * Yesterday patient's BSG improved from 317 --> 86 after receiving correctional insulin. For this reason, I hesitate to provide additional coverage for her hyperglycemia right now. Expect that BSG will again improve markedly after her "lunchtime" coverage. * Will provide small supplemental dose of Lantus now and add overnight accu- checks in order to provide additional correction overnight if needed. * Would strongly consider providing IV insulin infusion if BSGs do not improve. PLAN FOR INPATIENT GLYCEMIC CONTROL: * Increase LANTUS to 15 units SQ daily * Correctional Insulin with NOVOLOG per scale ACHS and at 00,04 * Goal Range: Low 110 mg/dL - High 140 mg/dL * Correction Factor: 25 mg/dL/unit * Nutritional / Prandial insulin per carb ratio of 1 unit per 9 grams CHO consumed * Please note that the plan above was derived based on current level of insulin resistance and hospital stress. These recommendations are appropriate for inpatient admission only. Plan of care upon discharge will need to be reassessed to avoid potential outpatient hypo/hyperglycemia. Thank you.
--- NOTE | 2017-10-04 13:57 | Hospitalist Progress Note ---
Hospitalist Progress Note Date of Service Oct 04, 2017. (Keely Duval ., ROCK[place]) Subjective Pt evaluation today including: conversation w/ patient, physical exam, lab review, review of inpatient medication list Voiding: no voiding problems Patient resting in bed. Pain 0/10. Eating and drinking OK. +flatus, no BM. Patient denies any fever, chills, sweats, lightheadedness, dizziness, vision changes, CP, palpitations, edema, SOB, wheezing, cough, abdominal pain, nausea, vomiting, diarrhea, urinary symptoms, melena, numbness/tingling, weakness, muscle/joint pain, anxiety/depression, active bleeding, or new skin discoloration/changes. (Keely Duval ., [place]) Medications Current Inpatient Medications Medications (Trade) Dose Ordered Sig/Maryann Route Start Time Stop Time Status Last Admin Dose Admin Acetaminophen (Tylenol Tab) 650 mg Q4H PRN PO 10/01/17 15:15 10/31/17 15:14 10/01/17 15:41 650 MG Glucose (Glucose 40% Gel) 15-30 GRAMS 15 GRAMS... UD PRN PO 10/01/17 15:15 10/31/17 15:14 Glucose (Glucose Chew Tab) 4-8 Tablets 4 Tabl... UD PRN PO 10/01/17 15:15 10/31/17 15:14 Dextrose (Dextrose 50% 50ML Syringe) 25-50ML OF 50% DW IV FOR... UD PRN IV 10/01/17 15:15 10/31/17 15:14 Glucagon (Glucagon Inj) 1 mg UD PRN SQ 10/01/17 15:15 10/31/17 15:14 Cholecalciferol (Vitamin D Tab) 1,000 inter.unit DAILY PO 10/02/17 09:00 11/01/17 08:59 10/04/17 07:34 1,000 INTER.UNIT Diltiazem HCl (TIAzac CAP) 120 mg QAM PO 10/02/17 09:00 11/01/17 08:59 10/04/17 07:35 120 MG Levothyroxine Sodium (Synthroid Tab) 125 mcg DAILYBB PO 10/02/17 06:00 11/01/17 06:59 10/04/17 05:30 125 MCG Ranitidine HCl (zANTac TAB) 150 mg BID PO 10/01/17 21:00 10/31/17 20:59 10/04/17 07:34 150 MG Cyanocobalamin (Vitamin B-12 Tab) 1,000 mcg DAILY PO 10/02/17 09:00 11/01/17 08:59 10/04/17 07:34 1,000 MCG Metoprolol Succinate (Toprol Xl Tab) 100 mg DAILY PO 10/02/17 09:00 11/01/17 08:59 10/04/17 07:34 100 MG Multivitamins/ Minerals (Multivitamin W/ Minerals Tab) 1 tab DAILY PO 10/02/17 09:00 11/01/17 08:59 10/04/17 07:34 1 TAB Miscellaneous Information (Consult Glycemic Management Pharmacy) 1 ea UD PRN N/A 10/03/17 08:26 11/02/17 08:25 Ondansetron HCl (Zofran Inj) 4 mg Q6H PRN IV 10/03/17 12:45 11/02/17 12:44 10/03/17 15:54 4 MG Oxycodone HCl (Roxicodone Immediate Rel Tab) 5 mg Q4H PRN PO 10/03/17 12:45 10/17/17 12:44 10/04/17 04:05 5 MG Tramadol HCl (Ultram Tab) 50mg for pain 1-5 100mg ... Q6H PRN PO 10/03/17 12:45 11/02/17 12:44 10/04/17 07:33 100 MG Rivaroxaban (Xarelto Tab) 20 mg QAM PO 10/04/17 09:00 11/03/17 08:59 10/04/17 07:34 20 MG Insulin Aspart (novoLOG ASPART) SLIDING SCALE If C... ACHS SC 10/03/17 17:15 11/02/17 17:14 10/04/17 13:31 6 UNITS Hydromorphone HCl (Dilaudid Inj) 1 mg Q3H PRN IV 10/03/17 15:30 10/17/17 15:29 10/03/17 15:42 1 MG Sodium Chloride 1,000 ml @ 45 mls/hr [id number] IV 10/03/17 18:15 10/04/17 18:14 10/03/17 18:37 45 MLS/HR Insulin Glargine (Lantus Solostar Pen) 15 units DAILY SC 10/04/17 09:00 11/03/17 08:59 10/04/17 08:44 15 UNITS (Keely Duval, YOBANY-C) Objective Vital Signs Date Time Temp Pulse Resp B/P (MAP) Pulse Ox O2 Delivery O2 Flow Rate FiO2 10/04/17 11:37 97 94 10/04/17 10:55 36.7 97 18 121/70 (87) 95 Room Air 10/04/17 07:43 93 Room Air 10/04/17 07:35 36.8 102 18 132/83 (99) 94 Room Air 10/04/17 04:00 36.7 97 17 124/73 (90) 98 Nasal Cannula 2.0 10/03/17 23:36 36.7 85 18 139/73 (95) 100 Nasal Cannula 2.0 10/03/17 20:10 Nasal Cannula 2.0 10/03/17 19:48 36.6 84 16 123/72 (89) 98 Nasal Cannula 2.0 10/03/17 16:17 36.6 87 18 151/72 (98) 98 Nasal Cannula 2.0 10/03/17 16:00 Nasal Cannula 2.0 10/03/17 15:09 36.5 71 18 112/64 (80) 98 Nasal Cannula 2.0 10/03/17 14:15 80 18 144/74 (97) 95 (Keely Duval, YOBANY-C) Physical Exam General Appearance: no apparent distress Eyes: normal inspection, PERRL ENT: hearing grossly normal Neck: supple Respiratory/Chest: lungs clear, no respiratory distress, no accessory muscle use Cardiovascular: + irregularly irregular (rate controlled) Abdomen: normal bowel sounds, non tender, soft Extremities: no pedal edema, no calf tenderness, + pertinent finding (TEDs on; R hip surgical bandage C/D/I ) Neurologic/Psychiatric: alert, normal mood/affect, oriented x 3 Skin: normal color, warm/dry, no rash (Keely Duval, YOBANY-C) Laboratory Results Last 24 Hours Test 10/03/17 15:44 10/03/17 17:33 10/03/17 21:05 10/04/17 00:11 Bedside Glucose 320 mg/dl 347 mg/dl 196 mg/dl 135 mg/dl Test 10/04/17 03:58 10/04/17 06:34 10/04/17 08:24 10/04/17 12:16 Bedside Glucose 157 mg/dl 241 mg/dl 224 mg/dl White Blood Count 10.33 K/uL Red Blood Count 3.50 M/uL Hemoglobin 10.5 g/dL Hematocrit 31.8 % Mean Corpuscular Volume 90.9 fL Mean Corpuscular Hemoglobin 30.0 pg Mean Corpuscular Hemoglobin Concent 33.0 g/dl RDW Standard Deviation 45.3 fL RDW Coefficient of Variation 13.8 % Platelet Count 165 K/uL Mean Platelet Volume 9.9 fL Sodium Level 134 mmol/L Potassium Level 4.1 mmol/L Chloride Level 103 mmol/L Carbon Dioxide Level 21 mmol/L Anion Gap 10.0 mmol/L Blood Urea Nitrogen 22 mg/dl Creatinine 0.90 mg/dl Est Creatinine Clear Calc Drug Dose 34.1 ml/min Estimated GFR () 66.6 Estimated GFR (Non- 57.5 BUN/Creatinine Ratio 24.2 Random Glucose 190 mg/dl Calcium Level 8.6 mg/dl (Keely Duval, PA-C) Assessment and Plan Acute non displaced fracture of the right femur sp/ Fall in a 87 yo female with A. Fib, DM, HTN, Acute non-displaced fracture of right proximal femur s/p mechanical fall s/p R hip trochanteric femoral rodding by Dr. Dos Santos on 10/03 - Admitted to med/surg - Held Xarelto for ortho procedure- resuming tomorrow as per surgical team - Vitamin D= 16.9- increase Vitamin D supplement from 1000 IU daily to 2000 IU daily - Orthopedics consulted, appreciate recommendations- Surgical management, pain management, PT/OT, and DVT prophylaxis as per ortho - Cardiology consulted- continue w/ procedure Chronic a. fib, HTN: - Continue Metoprolol 100 mg daily and Diltiazem 120 mg daily - Resumed Xarelto as above- decreased to 15 mg daily due to kidney function Hypothyroidism: Continue Synthroid 125 mcg daily T2DM w/ hyperglycemia- hgbA1c 8.4%: - Pharmacy consulted for glycemic management - BSG ACHS and ISS Diarrhea- RESOLVED: - Patient states diarrhea is not uncommon for her, usually occurs when on liquid diet (which patient was, advanced diet) - No recent use of antibiotic therapy or h/o c.diff - RN to continue to follow GI prophylaxis: Zantac DVT prophylaxis: Xarelto Code Status: LEVEL I, FULL until ortho procedure completed, change status to LEVEL V, DNR tomorrow Dispo: From home- hoping for [facility] at discharge- PT/OT once able and CM consulted (Keely Duval, YINKA) I personally interviewed and examined the patient. I agree with history of present illness and physical exam mentioned above, I also performed my own history taking and examination. Past medical history and review of system has been obtained by myself I reviewed all pertinent labs and studies Reviewed current medications I discussed and formulated of the assessment and plan mentioned above with YOBANY Duval Please refer to the Summary mentioned below. General Appearance: not in acute distress Eyes: normal Sclerae, extraocular muscle intact ENT: hearing grossly normal Neck: supple Respiratory/Chest: normal air entry bilateral ,no respiratory distress, no accessory muscle use Cardiovascular: regular rate, rhythm, no murmur Abdomen: non tender, soft, no masses Extremities: no edema Neurologic/Psychiatric: Awake alert oriented times place and person moves all extremities sensation intact cranial nerves II-12 appear to be intact Skin: normal color, warm/dry, no rash 87-year-old female presented to the ED status post fall with nondisplaced fracture of right femur Patient also has A. fib/diabetes mellitus/hypertension S/P right hip trochanteric femoral rodding restart Xarelto tolerating lunch Vitamin D supplement Continue home medications including metoprolol/Diltiazem/Synthroid switched morphine to Dilaudid obtain labs in am Kathleen Miller MD, [facility] hospitalist group (Kathleen Johnson MD)
[2017-10-04] MEDS: SODIUM CHLORIDE 0.9% 1000ML 1,000 ML IV SCH (16:02)
--- NOTE | 2017-10-04 19:22 | PROGRESS NOTE ---
DATE: 10/04/2017 Barbara is resting comfortably in bed. She reports minimal discomfort. She was able to ambulate 2 times with assistance around her room. I do not palpate pedal pulses, but her foot is warm with capillary refill less than 2 seconds and she has normal sensation and normal strength with ankle and toe plantar flexion and dorsiflexion. Her thigh is mildly swollen. The dressing is clean and dry. She is able to bend her knee to about 60 degrees. Her vital signs are stable. She is afebrile. Labs are noted. Hematocrit is 32. Blood sugars are 135-241 PRP noted. IMPRESSION: Right hip intertrochanteric fracture status post a trochanteric femoral nail. PLAN: She is doing well. Continue to rehab per protocol. Weightbear as tolerated with assistance. She will likely require penitentiary or acute inpatient rehabilitation. She is back on her Xarelto. Plan for dressing changes in the morning.
[2017-10-05] MEDS: OXYCODONE HCL IR 5 MG TAB (IMMEDIATE RELEASE) PO PRN (05:47)
[2017-10-05] MEDS: LEVOTHYROXINE 125 MCG TAB PO SCH (05:47)
[2017-10-05 06:15] LABS: HEMATOCRIT 29.6 % (37-47); HEMOGLOBIN 10.2 g/dL (12.0-16.0); MEAN CELL VOLUME 89.4 fL (80-100); MEAN CORPUSCULAR HEMOGLOBIN 30.8 pg (25-34); MEAN CORPUSCULAR HGB CONC 34.5 g/dl (32-36); MEAN PLATELET VOLUME 9.7 fL (7.4-10.4); PLATELET COUNT 188 K/uL (130-400); RED CELL DISTRIBUTION WIDTH CV 13.7 % (11.5-14.5); RED CELL DISTRIBUTION WIDTH SD 44.7 fL (36.4-46.3); WHITE BLOOD COUNT 10.14 K/uL (4.8-10.8)
[2017-10-05 06:53] LABS: CALCIUM 8.5 mg/dl (8.5-10.1); CREATININE 0.79 mg/dl (0.60-1.20); POTASSIUM 3.7 mmol/L (3.5-5.1)
[2017-10-05 07:30] VITALS: BP 161/84; PULSE 98; TEMP 36.8; O2SAT 94
[2017-10-05] MEDS: DILTIAZEM HCL 120 MG EXT REL CAP PO SCH (08:42)
[2017-10-05] MEDS: CHOLECALCIFEROL 1000 INTER.UNIT TAB PO SCH (08:42)
[2017-10-05] MEDS: RANITIDINE HCL 150 MG TAB PO SCH (08:43)
[2017-10-05] MEDS: METOPROLOL SUCC 50MG EXT REL TAB PO SCH (08:43)
[2017-10-05] MEDS: CEROVITE ADV FORMULA TAB PO SCH (08:43)
[2017-10-05] MEDS: CYANOCOBALAMIN 500 MCG TAB (VIT B-12) PO SCH (08:43)
[2017-10-05] MEDS: INSULIN ASPART 100 UNITS/ML 3 ML PEN SC SCH ×2 (08:51→13:05)
[2017-10-05] MEDS ORDERED: RIVAROXABAN TAB 15 MG TAB PO SCH (09:00)
[2017-10-05 09:50] VITALS: BP 144/76; PULSE 125
--- NOTE | 2017-10-05 11:19 | Orthopedic Progress Note ---
Orthopedic Progress Note Date of Service Oct 05, 2017. Subjective Post OP Day: 2 Reports: feeling well, pain controlled w PO medications, Denies: complaints, chest pain, SOB, nausea / vomiting, light headedness, calf pain Additional Notes: states she is waiting to go to [facility]. Was out of bed this morning and states she walked far with PT. Objective calves soft nontender, N/V intact, hip located, capillary refill less than 2 sec., incision C/D/I, A&O x3, toes mobile, CMS intact No pain with log rolling of hips. wounds look fine. Date Time Temp Pulse Resp B/P (MAP) Pulse Ox O2 Delivery O2 Flow Rate FiO2 10/05/17 07:30 36.8 98 18 161/84 (109) 94 Room Air 10/05/17 07:10 Room Air 10/04/17 23:10 36.8 98 17 115/64 (81) 98 Room Air 10/04/17 19:40 Room Air 10/04/17 15:15 36.7 89 16 108/65 (79) 97 Room Air 10/04/17 11:37 97 94 Laboratory Results 24 Hours: Test 10/05/17 06:03 Hematocrit 29.6 % Hemoglobin 10.2 g/dL Assessment & Plan Assessment: POD 2 - s/p ORIF right hip fracture Plan: She may be out of bed, weight bear as tolerated right lower extremity with assistance of a walker Xarelto resumed Teds/SCD's for DVT prophylaxis Regular diet Pain medication as prescribed Ice to right hip as needed for pain/swelling Continue PT Authorization pending for [facility] Will continue to follow during her hospital stay Will discuss findings with Dr. Dos Santos Discharge Planning Discharge Planning: senior care facility
[2017-10-05] MEDS ORDERED: ACET-1047 PO (11:32)
[2017-10-05] MEDS ORDERED: RIVA1.5T PO (11:32)
[2017-10-05] MEDS ORDERED: RXC5 PO (11:32)
[2017-10-05] MEDS ORDERED: CHOL1TAB2 PO (11:37)
--- NOTE | 2017-10-05 11:42 | Discharge Instructions ---
Discharge Instructions Date of Service Oct 05, 2017. Admission Reason for Admission: Nondisplaced Fracture Of Right Femur Discharge Discharge Diagnosis / Problem: R femur fracture Discharge Goals Goal(s): Decrease discomfort, Improve function, Increase independence, Improve disease control, Learn about illness, Diagnostic testing, Therapeutic intervention, Prevent Disease Progression Activity Recommendations Activity Level: Assistance Required Therapies: Physical Therapy, Occupational Therapy Limitations as per orthopedics Additional Information Patient informed of condition: Yes Advance Directives: No DNR: Yes Level of Care: Acute Rehab Communicable Disease: No Prognosis: Improving Poe Catheter: No Instructions / Follow-Up Instructions / Follow-Up Acute non-displaced fracture of right proximal femur s/p mechanical fall s/p R hip trochanteric femoral rodding by Dr. Dos Santos on 10/03: - Admitted to med/surg - Vitamin D= 16.9- increase Vitamin D supplement from 1000 IU daily to 2000 IU daily - Oxycodone 1 tablet q4 hrs PRN, Tylenol 650 mg q4 hrs PRN - Orthopedics consulted, appreciate recommendations - Cardiology consulted- continue w/ procedure Chronic a. fib, HTN: - Continue Metoprolol 100 mg daily and Diltiazem 120 mg daily - Resumed Xarelto- decreased to 15 mg daily due to kidney function Hypothyroidism: Continue Synthroid 125 mcg daily T2DM w/ hyperglycemia- hgbA1c 8.4%: - Pharmacy consulted for glycemic management - Resume Lantus and NovoLog regimen at discharge - BSG ACHS and ISS Diarrhea- RESOLVED: - Patient states diarrhea is not uncommon for her, usually occurs when on liquid diet (which patient was, advanced diet) - No recent use of antibiotic therapy or h/o c.diff - RN to continue to follow GI prophylaxis: Zantac DVT prophylaxis: Xarelto Code Status: LEVEL V, DNR Dispo: Discharge to [facility] FOLLOW-UPS: Follow-up with [facility] provider within 24-48 hours Please follow-up with your PCP within 5-7 days after discharge to [facility] Please follow-up with Orthopedics within 2 weeks Please follow-up/keep all of your subspecialty appointments Current Hospital Diet Patient's current hospital diet: Diabetes Type 2 Diet Discharge Diet Recommended Diet: Diabetes Type 2 Diet Procedures Procedures Performed: Right Hip Trochanteric Femoral Rodding Pending Studies Studies pending at discharge: no Physician Orders On Transfer Special Precautions: Fall precautions Dressing Changes: Routine R hip incision site care IV Therapy: None Vital Signs: Routine POLST Discussion: without POLST completion Laboratory Results Hemoglobin A1c Test 10/03/17 06:52 Range/Units Estimated Average Glucose 194 mg/dl Hemoglobin A1c 8.4 H 4.5-5.6 % Medical Emergencies . Who to Call and When: Medical Emergencies: If at any time you feel your situation is an emergency, please call 911 immediately. . Non-Emergent Contact Non-Emergency issues call your: Primary Care Provider Call Non-Emergent contact if: you have a fever, your pain is not controlled, your pain is worsening, your pain is unusual for you, your pain is concerning you, wound has increased drainage, wound has increased redness, wound has increased pain, you have any medication questions . . "Provider Documentation" section prepared by Keely Duval. . Route Salesman Recommendations Route Salesman Recommendations: Weight bear as tolerated right lower extremity with assistance of a walker Fish stockings daily - on during day, off at night Change dressings right hip daily and PRN. Okay to shower starting Monday10/07/17, pat incision dry. Redress right hip as needed. Okay to leave the right hip incision open to air if clean and dry. May do full range of motion all joints right lower extremity May increase activities as tolerated. May do strengthening exercises in physical therapy as tolerated. Follow-up with Dr. Dos Santos on 10/17/17 at 10:45 a.m. Please call [phone] with questions, concerns, or need to reschedule appointment. Core Measure Problem Core Measures: None
--- NOTE | 2017-10-05 11:50 | Discharge Summary ---
Discharge Summary Date of Service Oct 05, 2017. Discharge Summary Admission Date: Oct 01, 2017 at 15:11 Discharge Date: Oct 05, 2017 Discharge Disposition: Rehab Principal Diagnosis: R femur fracture Problems/Secondary Diagnoses: Acute non-displaced fracture of right proximal femur s/p mechanical fall s/p R hip trochanteric femoral rodding by Dr. Dos Santos on 10/03 Chronic a. fib HTN Hypothyroidism T2DM w/ hyperglycemia- hgbA1c 8.4% Diarrhea Immunizations: Have You Had Influenza Vaccine: Yes History of Tetanus Vaccine?: Unknown History of Pneumococcal: Unknown History of Hepatitis B Vaccine: Unknown Procedures: R PELVIS/UNILATERAL HIP 2-3VIEWS HISTORY: 87 years-old Female RT PROX FEMUR/HIP PAIN acute right hip pain COMPARISON: None available TECHNIQUE: AP view the pelvis with 2 views of the right hip FINDINGS: The bones appear moderately demineralized. Moderate degenerative changes involve the bilateral femoral acetabular joints. No pelvic ring fracture identified. Degenerative changes are seen within the lower lumbar spine. Irregular lucency with associated cortical irregularity is seen within the intertrochanteric region of the right femur suggesting acute nondisplaced fracture. Vascular calcifications noted. IMPRESSION: 1. Irregular lucency with cortical irregularity involving the intratrochanteric right femur suggests acute nondisplaced fracture. 2. Moderate bone demineralization. The above report was generated using voice recognition software. It may contain grammatical, syntax or spelling errors. Electronically signed by: Alex Mix M.D. 10/01/2017 1:23 PM Dictated Date/Time: 10/01/2017 1:20 PM The status of this report is Signed. Draft = Not yet reviewed or approved by Radiologist. Signed = Reviewed and approved by Radiologist. INTRAOPERATIVE RADIOGRAPHS CLINICAL HISTORY: Open reduction and internal fixation of the right hip. Fluoroscopy time: 126 seconds FINDINGS: 4 spot fluoroscopic views of the right hip are correlated with radiographs dated 10/01/2017. Intertrochanteric and intramedullary nails have been placed, transfixing an intertrochanteric fracture. Near-anatomic alignment is maintained. A single cortical lag screw transfixes the distal aspect of the intramedullary nail. The Orthopedic hardware appears intact. IMPRESSION: Intraoperative images from open reduction and internal fixation of the right hip as above. Electronically signed by: Sonny Plummer M.D. 10/03/2017 12:22 PM Dictated Date/Time: 10/03/2017 12:20 PM The status of this report is Signed. Draft = Not yet reviewed or approved by Radiologist. Signed = Reviewed and approved by Radiologist. INTRAOPERATIVE RADIOGRAPHS CLINICAL HISTORY: Open reduction and internal fixation of the right hip. Fluoroscopy time: 126 seconds FINDINGS: 4 spot fluoroscopic views of the right hip are correlated with radiographs dated 10/01/2017. Intertrochanteric and intramedullary nails have been placed, transfixing an intertrochanteric fracture. Near-anatomic alignment is maintained. A single cortical lag screw transfixes the distal aspect of the intramedullary nail. The Orthopedic hardware appears intact. IMPRESSION: Intraoperative images from open reduction and internal fixation of the right hip as above. Electronically signed by: Sonny Plummer M.D. 10/03/2017 12:22 PM Dictated Date/Time: 10/03/2017 12:20 PM The status of this report is Signed. Draft = Not yet reviewed or approved by Radiologist. Signed = Reviewed and approved by Radiologist. DICTATED BY: Jose Dos Santos M.D. DATE OF OPERATION: 10/03/2017 PREOPERATIVE DIAGNOSIS: Nondisplaced right hip intertrochanteric fracture, POSTOPERATIVE DIAGNOSIS: Same. PROCEDURE: Right hip trochanteric femoral nail. SURGEON: Dr. Dos Santos. CLINICAL OB: Amy Terry. No resident or fellow available. SECOND CLINICAL OB: Sherie Diaz, physician's blood donor unit assistant student. ANESTHESIA: Spinal with sedation. Consultations: Orthopedics- Dr. Dos Santos Medication Reconciliation New Medications: Acetaminophen (Mapap) 325 Mg Tab 650 MG PO Q4H PRN for Pain or Fever for 3 Days, #24 TAB Oxycodone HCl (Oxycodone HCl) 5 Mg Tab 5 MG PO Q4H PRN for Moderate Pain (pain scale 4-6) for 3 Days, #18 TAB Changed Medications: Cholecalciferol (Vitamin D-3) 1,000 Unit Tab 2000 INTER.UNIT PO DAILY for 30 Days (Changed from: 1000 INTER.UNIT) Rivaroxaban (Xarelto) 15 Mg Tab 15 MG PO DAILY for 30 Days, #30 TAB (Changed from: Rivaroxaban (Xarelto) 20 Mg Tab 20 Mg PO QAM) Continued Medications: Cranberry (Vaccinium Macrocarp (Cranberry) 500 Mg Cap 500 MG PO DAILY Cyanocobalamin (Vitamin B12) 1,000 Mcg Tab 1000 MCG PO DAILY Diltiazem Hcl Ext Rel (Tiazac) 120 Mg Capcr 120 MG PO QAM Insulin Aspart (Novolog Flexpen) 100 Units/Ml Inj 2-6 UNITS SC TIDM COVERAGE DIRECTED BY SLIDING SCALE Insulin Glargine (Lantus Solostar) 100 Unit/Ml Inj 10-12 UNITS SC QPM, PEN Levothyroxine Sodium (Levothyroxine Sodium) 125 Mcg Tab 125 MCG PO DAILY, TAB Metoprolol Succinate (Metoprolol Succinate ER) 100 Mg Tabcr 100 MG PO DAILY Multiple Vitamins W/ Minerals (Preservision Areds 2) 1 Cap Cap 1 CAP PO DAILY Ranitidine HCl (Ranitidine HCl) 150 Mg Tab 150 MG PO BID Referrals At Discharge Follow up Referrals: Orthopedics Referral - Within 2 Weeks with Jose Dos Santos M.D. Discharge Exam Review of Systems: Constitutional: No fever, No chills, No sweats, No weakness, No fatigue Eyes: No worsening of vision ENT: No hearing loss Respiratory: No cough, No shortness of breath, No hemoptysis Cardiovascular: No chest pain, No edema, No palpitations Abdomen: No pain, No nausea, No vomiting, No diarrhea, No constipation Musculoskeletal: No joint pain, No muscle pain, No swelling, No calf pain Genitourinary - Female: No dysuria, No hematuria Neurologic: No weakness, No numbness/tingling Psychiatric: No depression symptoms, No anxiety Endocrine: No fatigue Hematologic / Lymphatic: No abnormal bleeding/bruising Integumentary: No rash, No itch, No new/changing skin lesions Physical Exam: General Appearance: no apparent distress Eyes: normal inspection, PERRL ENT: hearing grossly normal Neck: supple Respiratory/Chest: lungs clear, no respiratory distress, no accessory muscle use Cardiovascular: + irregularly irregular (rate controlled ) Abdomen / GI: normal bowel sounds, non tender, soft Extremities: no calf tenderness, no pedal edema Neurologic/Psychiatric: alert, normal mood/affect, oriented x 3 Skin: normal color, warm/dry, no rash Hospital Course Acute non displaced fracture of the right femur sp/ Fall in a 87 yo female with A. Fib, DM, HTN, Acute non-displaced fracture of right proximal femur s/p mechanical fall s/p R hip trochanteric femoral rodding by Dr. Dos Santos on 10/03 - Admitted to med/surg - Held Xarelto for ortho procedure- resumed postop - Vitamin D= 16.9- increase Vitamin D supplement from 1000 IU daily to 2000 IU daily - Orthopedics consulted, appreciate recommendations- Surgical management, pain management, PT/OT, and DVT prophylaxis as per ortho - Oxycodone PRN and Tylenol PRN for pain control - Cardiology consulted- continue w/ procedure Chronic a. fib, HTN: - Continue Metoprolol 100 mg daily and Diltiazem 120 mg daily - Resume Xarelto- decreased to 15 mg daily due to kidney function Hypothyroidism: Continue Synthroid 125 mcg daily T2DM w/ hyperglycemia- hgbA1c 8.4%: - Pharmacy consulted for glycemic management - Resume Lantus and NovoLog regimen at discharge - BSG ACHS and ISS Diarrhea- RESOLVED: - Patient states diarrhea is not uncommon for her, usually occurs when on liquid diet (which patient was, advanced diet) - No recent use of antibiotic therapy or h/o c.diff - RN to continue to follow GI prophylaxis: Zantac DVT prophylaxis: Xarelto Code Status: LEVEL V, DNR Dispo: Discharge to [facility] I personally interviewed and examined the patient. I agree with history of present illness and physical exam mentioned above, I also performed my own history taking and examination. Past medical history and review of system has been obtained by myself I reviewed all pertinent labs and studies Reviewed current medications I discussed and formulated of the assessment and plan mentioned above with YOBANY Duval Please refer to the Summary mentioned below. General Appearance: not in acute distress Eyes: normal Sclerae, extraocular muscle intact ENT: hearing grossly normal Neck: supple Respiratory/Chest: normal air entry bilateral ,no respiratory distress, no accessory muscle use Cardiovascular: regular rate, rhythm, no murmur Abdomen: non tender, soft, no masses Extremities: no edema Neurologic/Psychiatric: Awake alert oriented times place and person moves all extremities sensation intact cranial nerves II-12 appear to be intact Skin: normal color, warm/dry, no rash 87-year-old female presented to the ED status post fall with nondisplaced fracture of right femur Patient also has A. fib/diabetes mellitus/hypertension S/P right hip trochanteric femoral rodding restarted Xarelto after the surgery when cleared by orthopedic pain is controlled Vitamin D supplement Continue home medications including metoprolol/Diltiazem/Synthroid switched morphine to Dilaudid stable from the medical point of view for discharge Kathleen Miller MD, [facility] hospitalist group Total Time Spent: Greater than 30 minutes This includes examination of the patient, discharge planning, medication reconciliation, and communication with other providers. Discharge Instructions Please refer to the electronic Patient Visit Report (Discharge Instructions) for additional information. Follow-Up Follow-up with Idalmis Higuera provider within 24-48 hours Please follow-up with your PCP within 5-7 days after discharge to [facility] Please follow-up with Orthopedics within 2 weeks Please follow-up/keep all of your subspecialty appointments Additional Copies To Pooja Chirinos M.D.
[2017-10-05 12:19] VITALS: BP 144/76; PULSE 125; TEMP 36.8; O2SAT 94
== END 2017-10-05 13:15 | DRG 481 ==
LOC: EDBD 10:51 → C.EDC 10:52 → C.3E 15:11 → ENRESERV 15:40
PROVIDERS: ADMIT Internal Medicine Sports Medicine; ATTEND Internal Medicine
PROC: 0QS636Z Reposition Right Upper Femur with Intramedullary Internal Fixation Device, Percutaneous Approach (ICD-10-PCS; principal; 2017-10-03 10:00)
DX: S72.144A Nondisplaced intertrochanteric fracture of right femur, initial encounter for closed fracture (principal); I48.1 Persistent atrial fibrillation; E11.9 Type 2 diabetes mellitus without complications; I12.9 Hypertensive chronic kidney disease with stage 1 through stage 4 chronic kidney disease, or unspecified chronic kidney disease; H35.30 Unspecified macular degeneration; E78.5 Hyperlipidemia, unspecified; E03.9 Hypothyroidism, unspecified; N18.9 Chronic kidney disease, unspecified; Z87.891 Personal history of nicotine dependence; Z79.4 Long term (current) use of insulin; W19.XXXA Unspecified fall, initial encounter; Z83.3 Family history of diabetes mellitus; Z82.49 Family history of ischemic heart disease and other diseases of the circulatory system

== ENCOUNTER → 2017-10-17 | Outpatient (CLI) | payer OTHER ==
[~2017-10-17] MED LIST changes: +ACET-1047 PO; -FERR1TAB23 PO; +RIVA1.5T PO; -RIVA1TAB4 PO; +RXC5 PO; -TNR50 PO; +TPRSR/100 PO
== END | disposition home or self-care (01) ==
LOC: C.RDSM 14:04
PROVIDERS: ATTEND Physical Medicine & Rehabilitation Sports Medicine
DX: Z87.81 Personal history of (healed) traumatic fracture (principal)

== ENCOUNTER → 2017-11-13 | Outpatient (CLI) | payer OTHER | END | disposition home or self-care (01) | LOC: C.MAMM 07:46 | PROVIDERS: ATTEND Physical Medicine & Rehabilitation Sports Medicine | DX: S72.001A Fracture of unspecified part of neck of right femur, initial encounter for closed fracture (principal); X58.XXXA Exposure to other specified factors, initial encounter ==

== ENCOUNTER → 2017-11-17 | Outpatient (CLI) | payer OTHER | END | disposition home or self-care (01) | LOC: C.RDSM 14:37 | PROVIDERS: ATTEND Physical Medicine & Rehabilitation Sports Medicine | DX: S72.001A Fracture of unspecified part of neck of right femur, initial encounter for closed fracture (principal); X58.XXXA Exposure to other specified factors, initial encounter ==

== ENCOUNTER 2017-12-26 15:57 | Emergency (ER) | payer OTHER ==
[~2017-12-26] VITALS: Ht 160 cm; Wt 61.0 kg
[2017-12-26 16:06] VITALS: TEMP 36.9; Ht 160 cm; Wt 61.0 kg
--- NOTE | 2017-12-26 16:44 | EMERGENCY ROOM VISIT NOTE ---
History First contact with patient: 16:10 Chief Complaint: BACK PAIN Stated Complaint: PAIN BETWEEN SHOULDER BLADES History of Present Illness The patient is a 87 year old female with hx of Afib, HTN, DM, microcytic anemia and macular degeneration who presents to the Emergency Room with complaints of pain between shoulder blades since this AM. Pain is 7-8/10, intermittent and sharp in nature. Worse with taking a deep breath. Nothing really helps the pain. No known trauma. Denies any sob, cp, cold symptoms, dizziness, n/v, abdominal pain, d/c, dysuria. Took 2 extra strength tylenols without much relief. Review of Systems see below Constitutional: No fever ENT: No nasal symptoms Respiratory: No cough, No shortness of breath Cardiovascular: No chest pain Abdomen: No pain, No nausea, No vomiting, No diarrhea, No constipation Musculoskeletal: + problem reported (back pain between shoulder blades) Genitourinary - Female: No dysuria Past Medical/Surgical History Medical Problems: (1) Atrial fibrillation, new onset (2) Diabetes (3) DKA (diabetic ketoacidosis) (4) HTN (hypertension) (5) Macular degeneration (6) Nondisplaced fracture of right femur Family History Diabetes mellitus Hypertension Social History Smoking Status: Former Smoker Alcohol Use: none Drug Use: none Marital Status: Occupation Status: retired Current/Historical Medications Scheduled Aspirin (Aspirin Ec), 81 MG PO DAILY Cranberry (Vaccinium Macrocarp (Cranberry), 500 MG PO DAILY Cyanocobalamin (Vitamin B12), 1,000 MCG PO DAILY Diltiazem Hcl Ext Rel (Tiazac), 120 MG PO QAM Ergocalciferol (Vitamin D 82565 Unit), 50,000 UNITS PO WK Insulin Aspart (Novolog Flexpen), 8 UNITS SC AC Insulin Glargine (Lantus Solostar), 14 UNITS SC QPM Levothyroxine Sodium (Levothyroxine Sodium), 125 MCG PO DAILY Metoprolol Succinate (Metoprolol Succinate ER), 100 MG PO DAILY Multiple Vitamins W/ Minerals (Preservision Areds 2), 1 CAP PO DAILY Ranitidine HCl (Ranitidine HCl), 150 MG PO BID Rivaroxaban (Xarelto), 20 MG PO QAM Physical Exam Vital Signs Date Time Temp Pulse Resp B/P (MAP) Pulse Ox O2 Delivery O2 Flow Rate FiO2 12/26/17 17:43 85 20 187/108 Room Air 12/26/17 16:32 90 12/26/17 16:06 36.9 93 16 176/69 94 Room Air Physical Exam see below General Appearance: no apparent distress Head: normocephalic, atraumatic Eyes: normal inspection ENT: normal ENT inspection Neck: supple Respiratory/Chest: lungs clear, normal breath sounds Cardiovascular: + irregularly irregular Abdomen / GI: normal bowel sounds, non tender, soft Back: + pertinent finding (kyposis; TTP over T8-T10 spinous processes and associated L sided paraspinal tenderness) Extremities: normal inspection, no calf tenderness, no pedal edema Neurologic/Psych: alert Medical Decision & Procedures Laboratory Results 12/26/17 16:30 Red Blood Count 3.92, Mean Corpuscular Volume 87.8, Mean Corpuscular Hemoglobin 29.3, Mean Corpuscular Hemoglobin Concent 33.4, Mean Platelet Volume 10.0, Neutrophils (%) (Auto) 74.3, Lymphocytes (%) (Auto) 15.9, Monocytes (%) (Auto) 8.4, Eosinophils (%) (Auto) 0.7, Basophils (%) (Auto) 0.1, Neutrophils # (Auto) 5.25, Lymphocytes # (Auto) 1.12, Monocytes # (Auto) 0.59, Eosinophils # (Auto) 0.05, Basophils # (Auto) 0.01 12/26/17 16:30 Test 12/26/17 16:30 White Blood Count 7.06 K/uL (4.8-10.8) Red Blood Count 3.92 M/uL (4.2-5.4) Hemoglobin 11.5 g/dL (12.0-16.0) Hematocrit 34.4 % (37-47) Mean Corpuscular Volume 87.8 fL (80-100) Mean Corpuscular Hemoglobin 29.3 pg (25-34) Mean Corpuscular Hemoglobin Concent 33.4 g/dl (32-36) Platelet Count 223 K/uL (130-400) Mean Platelet Volume 10.0 fL (7.4-10.4) Neutrophils (%) (Auto) 74.3 % Lymphocytes (%) (Auto) 15.9 % Monocytes (%) (Auto) 8.4 % Eosinophils (%) (Auto) 0.7 % Basophils (%) (Auto) 0.1 % Neutrophils # (Auto) 5.25 K/uL (1.4-6.5) Lymphocytes # (Auto) 1.12 K/uL (1.2-3.4) Monocytes # (Auto) 0.59 K/uL (0.11-0.59) Eosinophils # (Auto) 0.05 K/uL (0-0.5) Basophils # (Auto) 0.01 K/uL (0-0.2) RDW Standard Deviation 48.2 fL (36.4-46.3) RDW Coefficient of Variation 15.1 % (11.5-14.5) Immature Granulocyte % (Auto) 0.6 % Immature Granulocyte # (Auto) 0.04 K/uL (0.00-0.02) Anion Gap 6.0 mmol/L (3-11) Est Creatinine Clear Calc Drug Dose 30.3 ml/min Estimated GFR () 53.5 Estimated GFR (Non- 46.1 BUN/Creatinine Ratio 19.5 (10-20) Calcium Level 8.9 mg/dl (8.5-10.1) Creatine Kinase MB 1.1 ng/ml (0.5-3.6) Creatine Kinase MB Ratio (0-3.0) Troponin I < 0.015 ng/ml (0-0.045) Medical Decision 87 year old female with hx of Afib, HTN, DM, microcytic anemia and macular degeneration who presents to the Emergency Room with complaints of pain between shoulder blades since this AM. No report of cp or sob. Pain reproducible on exam and worse with taking a deep breath. Pt is on Xarelto and independent with ADLs thus PE less likely. Pain likely consistent with thoracic strain vs. vertebral compression fracture vs. pneumonia vs. PE vs. MD. -EKG: unchanged ST segment changes, Afib 88 -Ordered CXR: subtle R midlung zone airspace opacity; cardiomegaly with mild pulm vascular congestion -Ordered Lumbar spine XR: mild-moderate degenerative changes, no acute fracture -Ordered Troponin, CKMB - negative -Ordered CBC, BMP - wnl -Ordered CT chest to rule out PE given concerning R midlung opacity on CXR and pleuritic chest pain Please refer to Dr. Smith's note for remainder of care. Impression Primary Impression: Pneumonia Resident Involvement: Resident Care Provided Care Provided: Adult ED Departure Information Referrals Pooja Chirinos M.D. (PCP) Patient Instructions [facility]
[2017-12-26 16:47] LABS: BASO % 0.1 %; BASO ABS # 0.01 K/uL (0-0.2); EOS % 0.7 %; EOS ABS # 0.05 K/uL (0-0.5); HEMATOCRIT 34.4 % (37-47); HEMOGLOBIN 11.5 g/dL (12.0-16.0); IG# 0.04 K/uL (0.00-0.02); LYMPH % 15.9 %; LYMPH ABS # 1.12 K/uL (1.2-3.4); MEAN CELL VOLUME 87.8 fL (80-100); MEAN CORPUSCULAR HEMOGLOBIN 29.3 pg (25-34); MEAN CORPUSCULAR HGB CONC 33.4 g/dl (32-36); MONO % 8.4 %; MONO ABS # 0.59 K/uL (0.11-0.59); NEUT % 74.3 %; NEUT ABS # 5.25 K/uL (1.4-6.5); PLATELET COUNT 223 K/uL (130-400); RED CELL DISTRIBUTION WIDTH CV 15.1 % (11.5-14.5); RED CELL DISTRIBUTION WIDTH SD 48.2 fL (36.4-46.3); WHITE BLOOD COUNT 7.06 K/uL (4.8-10.8)
--- NOTE | 2017-12-26 16:54 | EMERGENCY ROOM VISIT NOTE ---
History Report prepared by Ermias: Veronica Gibson Under the Supervision of: Dr. Sonny Smith M.D. First contact with patient: 16:10 Chief Complaint: BACK PAIN Stated Complaint: PAIN BETWEEN SHOULDER BLADES History of Present Illness The patient is a 87 year old female who presents to the Emergency Room with complaints of constant mid-upper back pain beginning this morning. The patient states that she woke up this morning with pain between her shoulder blades. She rates her pain as a 7/10 in severity. She describes her pain as sharp. Taking a deep breath exacerbates her pain. She states that nothing makes it feel better. The patient denies chest pain, shortness of breath, nausea, vomiting, and abdominal pain. She denies any recent trauma or injury. 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 Source of History: patient Onset: this morning Position: back Symptom Intensity: 7/10 Quality: sharp Timing: constant Modifying Factors (Worsening): breathing Associated Symptoms: No chest pain, No SOB, No nausea, No vomiting, No abdominal pain Review of Systems See HPI for pertinent positives & negatives. A total of 10 systems reviewed and were otherwise negative. Past Medical & Surgical Medical Problems: (1) Atrial fibrillation, new onset (2) Diabetes (3) DKA (diabetic ketoacidosis) (4) HTN (hypertension) (5) Macular degeneration (6) Nondisplaced fracture of right femur Family History Diabetes mellitus Hypertension Social History Smoking Status: Former Smoker Alcohol Use: none Drug Use: none Marital Status: Occupation Status: retired Current/Historical Medications Scheduled Aspirin (Aspirin Ec), 81 MG PO DAILY Cranberry (Vaccinium Macrocarp (Cranberry), 500 MG PO DAILY Cyanocobalamin (Vitamin B12), 1,000 MCG PO DAILY Diltiazem Hcl Ext Rel (Tiazac), 120 MG PO QAM Ergocalciferol (Vitamin D 36747 Unit), 50,000 UNITS PO WK Insulin Aspart (Novolog Flexpen), 8 UNITS SC AC Insulin Glargine (Lantus Solostar), 14 UNITS SC QPM Levothyroxine Sodium (Levothyroxine Sodium), 125 MCG PO DAILY Metoprolol Succinate (Metoprolol Succinate ER), 100 MG PO DAILY Multiple Vitamins W/ Minerals (Preservision Areds 2), 1 CAP PO DAILY Ranitidine HCl (Ranitidine HCl), 150 MG PO BID Rivaroxaban (Xarelto), 20 MG PO QAM Allergies Coded Allergies: No Known Allergies (Unverified , 12/26/17) Physical Exam Vital Signs Date Time Temp Pulse Resp B/P (MAP) Pulse Ox O2 Delivery O2 Flow Rate FiO2 12/26/17 17:43 85 20 187/108 Room Air 12/26/17 16:32 90 12/26/17 16:06 36.9 93 16 176/69 94 Room Air Physical Exam GENERAL: Patient is in no acute distress. HEENT: No acute trauma, normocephalic atraumatic, mucous membranes moist, no nasal congestion, no scleral icterus. NECK: No stridor, no adenopathy, no meningismus, trachea is midline. LUNGS: Clear to auscultation bilaterally, no wheeze, no rhonchi, breath sounds equal. HEART: Irregular rhythm with a normal rate, no murmur. ABDOMEN: Soft, nontender, bowel sounds positive, no hernias, no peritonitis. BACK: Tender over the mid to lower thoracic spine, no bony step-offs, no rash, pain did worsen with movement. EXTREMITIES: No cyanosis or edema, full range of motion of all the joints without pain or difficulty, no signs for acute trauma. NEUROLOGIC: Oriented x 3, no acute motor or sensory deficits, no focal weakness. SKIN: No rash, no jaundice, no diaphoresis. Medical Decision & Procedures ER Provider Diagnostic Interpretation: Radiology results as stated below per my review and radiologist interpretation: CHEST 1 VW FRONT-NOT PORTABLE CLINICAL HISTORY: Inspiratory pain COMPARISON STUDY: October 31, 2016 FINDINGS: The heart is mildly enlarged. There is mild elevation of the interstitium. An element of mild pulmonary vascular congestion cannot be excluded. There are slightly more prominent markings within the right midlung zone. This could indicate a focal inflammatory process. Clinical and radiographic follow-up is recommended. There is no pneumothorax. There are no significant pleural effusions.[ IMPRESSION: 1. Subtle right midlung zone airspace opacities. A focal inflammatory process cannot be excluded 2. Cardiomegaly and subtle elevation of the interstitium. An element of mild pulmonary vascular congestion must be considered. Electronically signed by: Brent Multani M.D. 12/26/2017 5:41 PM Dictated Date/Time: 12/26/2017 5:38 PM THORACIC SPINE 3 VIEWS ROUTINE CLINICAL HISTORY: Mid scapular pain COMPARISON STUDY: 05/26/2015 FINDINGS: The paraspinal line is not displaced. There are mild to moderate multilevel degenerative changes. No acute fractures or traumatic subluxations are visualized. No destructive lesions are visualized on conventional graphic imaging. IMPRESSION: Mild to moderate multilevel degenerative change. No acute fractures identified. Electronically signed by: Brent Multani M.D. 12/26/2017 5:42 PM Dictated Date/Time: 12/26/2017 5:[address] ANGIOGRAM OF THE CHEST CLINICAL HISTORY: Atypical chest pain. Back pain. Abnormal chest x-ray. COMPARISON STUDY: 06/10/2015, chest x-ray dated 12/26/2017 TECHNIQUE: Following the IV administration of 87 mL of Optiray-320, CT angiogram of the thorax was performed from the thoracic inlet to the lung bases utilizing the pulmonary embolus protocol. Images are reviewed in the axial, sagittal, and coronal planes. IV contrast was administered without complication. MIP imaging was performed. A dose lowering technique was utilized adhering to the principles of ALARA. CT DOSE: 210.61 mGy.cm FINDINGS: There is a mildly enlarged AP window lymph node. Right hilar nodes are the upper limits of normal in size. There was no evidence of thoracic aortic dilatation. There were no pulmonary artery filling defects to indicate acute pulmonary embolism. No pleural effusions are visualized. There is pulmonary emphysema. There is a solid 7 mm right middle lobe pulmonary nodule as visualized in image #[id number]. There are scattered additional smaller nodules. There is no focal pulmonary consolidation. There is minimal lower lobe bronchiectasis. There is mild subpleural reticulation, most pronounced within the dependent portions of the lower lobes. IMPRESSION: 1. No evidence of acute pulmonary embolism 2. Severe emphysema 3. No evidence of focal pulmonary consolidation 4. Scattered pulmonary nodules, the largest of which is a 7 mm solid right middle lobe pulmonary nodule. 6-[address] follow-up is recommended. Please refer to below summary of Fleischner criteria recommendations for follow-up of incidental CT nodules (Marzena Marino, Guidelines for management of small pulmonary nodules detected on CT scans: A statement from the Fleischner Society, Radiology 237: [phone].) SOLID NODULES Solitary nodule size: <6 mm * low risk patients: no follow-up needed * high risk patients: optional CT at 12 months Solitary nodule size: 6-8 mm * low risk patients: follow-up at 6-12 months, then consider further follow-up at 18-24 months * high risk patients: initial follow-up CT at 6-12 months and then at 18-24 months if no change Solitary nodule size: >8 mm * either low or high risk patients - consider follow-up CT at 3 months, and/or CT-PET, and/or biopsy Multiple nodules size: <6 mm * low risk patients: no routine follow-up * high risk patients: optional CT at 12 months Multiple nodules size: 6-8 mm * low risk patients: follow-up at 3-6 months, then consider further follow-up at 18-24 months * high risk patients: follow-up at 3-6 months, then at 18-24 months if no change Multiple nodules size: >8 mm * low risk patients: follow-up at 3-6 months, then consider further follow-up at 18-24 months * high risk patients: follow-up at 3-6 months, then at 18-24 months if no change Note: newly detected indeterminate nodule in persons 35 years of age or older. * low risk patients: minimal or absent history of smoking and/or other known risk factors * high risk patients: history of smoking or of other known risk factors (e.g. first degree relative with lung cancer, or exposure to asbestos, radon, uranium) * if a nodule up to 8 mm is partly solid or is ground glass further follow-up is required after 24 months to exclude possible slow growing adenocarcinoma (CLARENCE) SUBSOLID NODULES Solitary pure ground-glass nodule * nodule size <6 mm - no CT follow-up required * nodule size >=6 mm - follow-up CT at 6-12 months, then every 2 years until 5 years Solitary part-solid nodule * nodule size <6 mm - no CT follow-up required * nodule size >=6 mm - follow-up CT at 3-6 months. If unchanged, and solid component remains <6 mm, then annual follow-up for 5 years Multiple subsolid nodules * nodule size <6 mm - follow-up CT at 3-6 months, consider further follow-up at 2 and 4 years if stable * nodule size >=6 mm - follow-up CT at 3-6 months, subsequent management based on the most suspicious nodule(s) Electronically signed by: Brent Multani M.D. 12/26/2017 6:59 PM Dictated Date/Time: 12/26/2017 6:52 PM Laboratory Results 12/26/17 16:30 Red Blood Count 3.92, Mean Corpuscular Volume 87.8, Mean Corpuscular Hemoglobin 29.3, Mean Corpuscular Hemoglobin Concent 33.4, Mean Platelet Volume 10.0, Neutrophils (%) (Auto) 74.3, Lymphocytes (%) (Auto) 15.9, Monocytes (%) (Auto) 8.4, Eosinophils (%) (Auto) 0.7, Basophils (%) (Auto) 0.1, Neutrophils # (Auto) 5.25, Lymphocytes # (Auto) 1.12, Monocytes # (Auto) 0.59, Eosinophils # (Auto) 0.05, Basophils # (Auto) 0.01 12/26/17 16:30 Test 12/26/17 16:30 White Blood Count 7.06 K/uL (4.8-10.8) Red Blood Count 3.92 M/uL (4.2-5.4) Hemoglobin 11.5 g/dL (12.0-16.0) Hematocrit 34.4 % (37-47) Mean Corpuscular Volume 87.8 fL (80-100) Mean Corpuscular Hemoglobin 29.3 pg (25-34) Mean Corpuscular Hemoglobin Concent 33.4 g/dl (32-36) Platelet Count 223 K/uL (130-400) Mean Platelet Volume 10.0 fL (7.4-10.4) Neutrophils (%) (Auto) 74.3 % Lymphocytes (%) (Auto) 15.9 % Monocytes (%) (Auto) 8.4 % Eosinophils (%) (Auto) 0.7 % Basophils (%) (Auto) 0.1 % Neutrophils # (Auto) 5.25 K/uL (1.4-6.5) Lymphocytes # (Auto) 1.12 K/uL (1.2-3.4) Monocytes # (Auto) 0.59 K/uL (0.11-0.59) Eosinophils # (Auto) 0.05 K/uL (0-0.5) Basophils # (Auto) 0.01 K/uL (0-0.2) RDW Standard Deviation 48.2 fL (36.4-46.3) RDW Coefficient of Variation 15.1 % (11.5-14.5) Immature Granulocyte % (Auto) 0.6 % Immature Granulocyte # (Auto) 0.04 K/uL (0.00-0.02) Anion Gap 6.0 mmol/L (3-11) Est Creatinine Clear Calc Drug Dose 30.3 ml/min Estimated GFR () 53.5 Estimated GFR (Non- 46.1 BUN/Creatinine Ratio 19.5 (10-20) Calcium Level 8.9 mg/dl (8.5-10.1) Creatine Kinase MB 1.1 ng/ml (0.5-3.6) Creatine Kinase MB Ratio (0-3.0) Troponin I < 0.015 ng/ml (0-0.045) Laboratory results reviewed by me. ECG Per My Interpretation Indication: back/shoulder pain Rate (beats per minute): 88 Rhythm: atrial fibrillation Findings: ST depression (Inferior and lateral), no ectopy, other (LVH) Comparison ECG Date: 10/01/17 Change: no significant change ED Course 1610: The patient was evaluated in room B9. A complete history and physical exam was performed. 1921: Zantac 150 mg PO 1920: I reassessed the patient at this time. She is feeling better and resting comfortably. I discussed the results and treatment plan with the patient. I answered all pertaining questions that she had. She expressed understanding and verbalized agreement. The patient will be discharged home. Medical Decision Differential diagnoses includes compression fracture, nerve impingement, musculoskeletal pain, PE, aortic dissection, pneumonia, NV, cardiac ischemia. There is no leukocytosis or concerning anemia. No significant electrolyte abnormality or kidney failure. EKG shows atrial fibrillation, no acute ischemic change. T-spine series shows arthritis, no obvious fracture. Chest film does not show CHF. No pneumothorax. There was a potential infiltrate noted to the right lung. Chest CT did not show evidence for pneumonia or PE, some nodules were seen that can be followed as an outpatient. The patient presents with lower to mid thoracic back pain. The pain does worsen with movement and with palpation. Workup here is unrevealing. The pain is likely musculoskeletal. The patient has been reassured. The patient did request a dose of oral Zantac while in the ED, this was given. The patient will be discharged, heat to the area was suggested, Tylenol for pain. Outpatient family doctor follow-up this week was suggested. If the symptoms are worsening, if she becomes more short of breath, she should report back for reassessment. Medication Reconcilliation Current Medication List: was personally reviewed by me Blood Pressure Screening Patient's blood pressure: Elevated blood pressure Blood pressure disposition: Referred to PCP Impression Primary Impression: Upper back pain Additional Impression: Abnormal chest xray Scribe Attestation The scribe's documentation has been prepared under my direction and personally reviewed by me in its entirety. I confirm that the note above accurately reflects all work, treatment, procedures, and medical decision making performed by me. Departure Information Dispostion Home / Self-Care Referrals Pooja Chirinos M.D. (PCP) Forms HOME CARE DOCUMENTATION FORM, IMPORTANT VISIT INFORMATION Patient Instructions My [facility] [facility] Additional Instructions tylenol for pain continue your zantac as before heat to the sore area in the back for 30 minutes at a time should help heart and lung testing was ok today see jocelyn samuels for a recheck later this week Problem Qualifiers
[2017-12-26 17:10] LABS: BLOOD UREA NITROGEN 21 mg/dl (7-18); CALCIUM 8.9 mg/dl (8.5-10.1); CARBON DIOXIDE 24 mmol/L (21-32); CREATININE 1.08 mg/dl (0.60-1.20); GLUCOSE 273 mg/dl (70-99); POTASSIUM 3.8 mmol/L (3.5-5.1); SODIUM 135 mmol/L (136-145)
[2017-12-26 17:15] LABS: CKMB 1.1 ng/ml (0.5-3.6)
[2017-12-26] MEDS ORDERED: RIVA1TAB4 PO (17:42)
[2017-12-26] MEDS ORDERED: ASPI81TA28 PO (17:42)
[2017-12-26] MEDS ORDERED: ERGO500011 PO (17:42)
--- NOTE | 2017-12-26 17:42 | DIAGNOSTIC IMAGING REPORT ---
CHEST 1 VW FRONT-NOT PORTABLE CLINICAL HISTORY: Inspiratory pain COMPARISON STUDY: October 31, 2016 FINDINGS: The heart is mildly enlarged. There is mild elevation of the interstitium. An element of mild pulmonary vascular congestion cannot be excluded. There are slightly more prominent markings within the right midlung zone. This could indicate a focal inflammatory process. Clinical and radiographic follow-up is recommended. There is no pneumothorax. There are no significant pleural effusions.[ IMPRESSION: 1. Subtle right midlung zone airspace opacities. A focal inflammatory process cannot be excluded 2. Cardiomegaly and subtle elevation of the interstitium. An element of mild pulmonary vascular congestion must be considered. Electronically signed by: Brent Multani M.D. 12/26/2017 5:41 PM Dictated Date/Time: 12/26/2017 5:38 PM
--- NOTE | 2017-12-26 17:43 | DIAGNOSTIC IMAGING REPORT ---
THORACIC SPINE 3 VIEWS ROUTINE CLINICAL HISTORY: Mid scapular pain COMPARISON STUDY: 05/26/2015 FINDINGS: The paraspinal line is not displaced. There are mild to moderate multilevel degenerative changes. No acute fractures or traumatic subluxations are visualized. No destructive lesions are visualized on conventional graphic imaging. IMPRESSION: Mild to moderate multilevel degenerative change. No acute fractures identified. Electronically signed by: Brent Multani M.D. 12/26/2017 5:42 PM Dictated Date/Time: 12/26/2017 5:41 PM
[2017-12-26] MEDS ORDERED: OPTIRAY 320 IV PRN (18:00)
--- NOTE | 2017-12-26 19:01 | DIAGNOSTIC IMAGING REPORT ---
CT ANGIOGRAM OF THE CHEST CLINICAL HISTORY: Atypical chest pain. Back pain. Abnormal chest x-ray. COMPARISON STUDY: 06/10/2015, chest x-ray dated 12/26/2017 TECHNIQUE: Following the IV administration of 87 mL of Optiray-320, CT angiogram of the thorax was performed from the thoracic inlet to the lung bases utilizing the pulmonary embolus protocol. Images are reviewed in the axial, sagittal, and coronal planes. IV contrast was administered without complication. MIP imaging was performed. A dose lowering technique was utilized adhering to the principles of ALARA. CT DOSE: 210.61 mGy.cm FINDINGS: There is a mildly enlarged AP window lymph node. Right hilar nodes are the upper limits of normal in size. There was no evidence of thoracic aortic dilatation. There were no pulmonary artery filling defects to indicate acute pulmonary embolism. No pleural effusions are visualized. There is pulmonary emphysema. There is a solid 7 mm right middle lobe pulmonary nodule as visualized in image #[id number]. There are scattered additional smaller nodules. There is no focal pulmonary consolidation. There is minimal lower lobe bronchiectasis. There is mild subpleural reticulation, most pronounced within the dependent portions of the lower lobes. IMPRESSION: 1. No evidence of acute pulmonary embolism 2. Severe emphysema 3. No evidence of focal pulmonary consolidation 4. Scattered pulmonary nodules, the largest of which is a 7 mm solid right middle lobe pulmonary nodule. 6-[address] follow-up is recommended. Please refer to below summary of Fleischner criteria recommendations for follow-up of incidental CT nodules (Marzena Marino, Guidelines for management of small pulmonary nodules detected on CT scans: A statement from the Fleischner Society, Radiology 237: [phone].) SOLID NODULES Solitary nodule size: <6 mm * low risk patients: no follow-up needed * high risk patients: optional CT at 12 months Solitary nodule size: 6-8 mm * low risk patients: follow-up at 6-12 months, then consider further follow-up at 18-24 months * high risk patients: initial follow-up CT at 6-12 months and then at 18-24 months if no change Solitary nodule size: >8 mm * either low or high risk patients - consider follow-up CT at 3 months, and/or CT-PET, and/or biopsy Multiple nodules size: <6 mm * low risk patients: no routine follow-up * high risk patients: optional CT at 12 months Multiple nodules size: 6-8 mm * low risk patients: follow-up at 3-6 months, then consider further follow-up at 18-24 months * high risk patients: follow-up at 3-6 months, then at 18-24 months if no change Multiple nodules size: >8 mm * low risk patients: follow-up at 3-6 months, then consider further follow-up at 18-24 months * high risk patients: follow-up at 3-6 months, then at 18-24 months if no change Note: newly detected indeterminate nodule in persons 35 years of age or older. * low risk patients: minimal or absent history of smoking and/or other known risk factors * high risk patients: history of smoking or of other known risk factors (e.g. first degree relative with lung cancer, or exposure to asbestos, radon, uranium) * if a nodule up to 8 mm is partly solid or is ground glass further follow-up is required after 24 months to exclude possible slow growing adenocarcinoma (CLARENCE) SUBSOLID NODULES Solitary pure ground-glass nodule * nodule size <6 mm - no CT follow-up required * nodule size >=6 mm - follow-up CT at 6-12 months, then every 2 years until 5 years Solitary part-solid nodule * nodule size <6 mm - no CT follow-up required * nodule size >=6 mm - follow-up CT at 3-6 months. If unchanged, and solid component remains <6 mm, then annual follow-up for 5 years Multiple subsolid nodules * nodule size <6 mm - follow-up CT at 3-6 months, consider further follow-up at 2 and 4 years if stable * nodule size >=6 mm - follow-up CT at 3-6 months, subsequent management based on the most suspicious nodule(s) Electronically signed by: Brent Multani M.D. 12/26/2017 6:59 PM Dictated Date/Time: 12/26/2017 6:52 PM
[2017-12-26] MEDS ORDERED: RANITIDINE HCL 150 MG TAB PO STA (19:22)
[2017-12-26 20:17] VITALS: BP 173/78; PULSE 93; O2SAT 94
== END 2017-12-26 20:19 | disposition home or self-care (01) ==
LOC: C.EDB 15:58
DX: J18.9 Pneumonia, unspecified organism (principal); I48.91 Unspecified atrial fibrillation; I10 Essential (primary) hypertension; E11.10 Type 2 diabetes mellitus with ketoacidosis without coma; M51.36 Other intervertebral disc degeneration, lumbar region; M40.209 Unspecified kyphosis, site unspecified; Z79.82 Long term (current) use of aspirin; Z79.899 Other long term (current) drug therapy; Z79.4 Long term (current) use of insulin; Z79.01 Long term (current) use of anticoagulants; Z87.891 Personal history of nicotine dependence; Z83.3 Family history of diabetes mellitus; Z82.49 Family history of ischemic heart disease and other diseases of the circulatory system

== ENCOUNTER → 2018-01-01 | Outpatient (CLI) | payer OTHER ==
[~2018-01-01] MED LIST changes: -ACET-1047 PO; +ASPI81TA28 PO; -CHOL1TAB2 PO; +ERGO500011 PO; -RIVA1.5T PO; +RIVA1TAB4 PO; -RXC5 PO
== END | disposition home or self-care (01) ==
LOC: C.RDSM 17:20
PROVIDERS: ATTEND Physical Medicine & Rehabilitation Sports Medicine
DX: M85.80 Other specified disorders of bone density and structure, unspecified site (principal); E55.9 Vitamin D deficiency, unspecified; Z87.81 Personal history of (healed) traumatic fracture

== ENCOUNTER → 2018-04-24 | Outpatient (CLI) | payer OTHER ==
[2018-04-24 10:23] LABS: HEMATOCRIT 31.9 % (37-47); HEMOGLOBIN 9.7 g/dL (12.0-16.0); MEAN CELL VOLUME 78.6 fL (80-100); MEAN CORPUSCULAR HEMOGLOBIN 23.9 pg (25-34); MEAN CORPUSCULAR HGB CONC 30.4 g/dl (32-36); MEAN PLATELET VOLUME 9.5 fL (7.4-10.4); PLATELET COUNT 265 K/uL (130-400); RED CELL DISTRIBUTION WIDTH CV 16.3 % (11.5-14.5); RED CELL DISTRIBUTION WIDTH SD 47.1 fL (36.4-46.3); WHITE BLOOD COUNT 8.78 K/uL (4.8-10.8)
[2018-04-24 10:37] LABS: ALBUMIN 3.3 gm/dl (3.4-5.0); ALKALINE PHOSPHATASE 117 U/L (45-117); ALT/SGPT 15 U/L (12-78); AST/SGOT 21 U/L (15-37); BLOOD UREA NITROGEN 23 mg/dl (7-18); CALCIUM 8.7 mg/dl (8.5-10.1); CARBON DIOXIDE 23 mmol/L (21-32); CHOLESTEROL 168 mg/dl (0-200); CREATININE 1.01 mg/dl (0.60-1.20); GLUCOSE 166 mg/dl (70-99); LDL CHOLESTEROL CALCULATED 104 mg/dl; SODIUM 137 mmol/L (136-145); TOTAL PROTEIN 7.1 gm/dl (6.4-8.2)
[2018-04-24 10:38] LABS: HEMOGLOBIN A1C 9.3 % (4.5-5.6)
== END | disposition home or self-care (01) ==
LOC: C.LAB1850 08:51
PROVIDERS: ATTEND Neuromusculoskeletal Medicine & OMM
DX: I10 Essential (primary) hypertension (principal); E03.9 Hypothyroidism, unspecified; D64.9 Anemia, unspecified; I48.91 Unspecified atrial fibrillation; E78.5 Hyperlipidemia, unspecified; E11.65 Type 2 diabetes mellitus with hyperglycemia

== ENCOUNTER → 2018-05-04 | Outpatient (CLI) | payer OTHER ==
[~2018-05-04] MED LIST changes: +MCRB100 PO; +XRL20 PO
--- NOTE | 2018-05-04 13:47 | DIAGNOSTIC IMAGING REPORT ---
(CHEST) THORAX WITHOUT CLINICAL HISTORY: 88 years-old Female presenting with R91.8 Lung nodules. TECHNIQUE: Multidetector CT imaging of the chest was performed without the use of intravenous contrast. IV contrast: None. A dose lowering technique was used consistent with the principles of ALARA (as low as reasonably achievable). COMPARISON: . CT DOSE (mGy.cm): The estimated cumulative dose is 178.39 mGy.cm. 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 On soft tissue windows, normal thyroid and thoracic inlet. Prominent mediastinal lymph nodes in the precarinal region, some of which demonstrate calcification. These measure up to 8 mm in the short axis, possibly reactive. Evaluation of the tiffany limited without intravenous contrast. Atherosclerosis of the aorta. Multichamber enlargement of the heart. Coronary artery, aortic valve, and mitral annular calcification. No pericardial or pleural effusion. Upper abdomen normal. On lung windows, moderate apical predominant emphysema. Dependent changes likely atelectasis. Subpleural reticulation may also be superimposed on atelectatic changes, suggesting a component of fibrosis. Bandlike opacity at the right apex likely scarring, unchanged. Solid fissural right upper lobe nodule (series 4 image 140), unchanged. Solid subpleural lobular 9 mm nodule in the right middle lobe is stable when remeasured at a comparable level (series 4 image 180). Bronchial wall thickening. Mild interlobular septal thickening at the lung bases. Central airways patent. No pneumothorax. On bone windows, degenerative changes of the spine. IMPRESSION: 1. Smoking related lung injury with emphysema and bronchitis. 2. Subcentimeter reactive mediastinal lymph nodes. 3. Multiple solid pulmonary nodules measuring up to 9 mm. The largest is within the area of subpleural reticulation. Attention on follow-up. Fissural nodules are most suggestive of a benign etiology such as unencapsulated pulmonary lymphoid tissue. Please refer to below summary of Fleischner Society 2017 recommendations for follow-up of incidental CT nodules (Marzena Marino et al. Guidelines for management of incidental pulmonary nodules detected on CT images: From the Fleischner Society 2017. Radiology 2017; 284: 228-243.) SOLID NODULES Single nodule; size < 6 mm * Low risk patients: No routine follow-up * High risk patients: Optional CT at 12 months Single nodule; size 6-8 mm * Low risk patients: CT at 6-12 months, then consider CT at 18-24 months * High risk patients: CT at 6-12 months, then at 18-24 months Single nodule; size > 8 mm * Either low or high risk patients: Considered CT at 3 months, PET/CT, or tissue sampling Multiple nodules; size < 6 mm * Low risk patients: No routine follow up * High risk patients: Optional CT at 12 months Multiple nodules; size 6-8 mm * Low risk patients: CT at 3-6 months, then consider CT at 18-24 months * High risk patients: CT at 3-6 months, then at 18-24 months Multiple nodules; size > 8 mm * Low risk patients: CT at 3-6 months, then consider at 18-24 months * High risk patients: CT at 3-6 months, then at 18-24 months SUBSOLID NODULES Single ground-glass nodule * Nodule size < 6 mm: No routine follow-up * Nodule size > or = 6 mm: CT at 6-12 months to confirm persistence, then CT every 2 years until 5 years Single part-solid nodule * Nodule size < 6 mm: No routine follow-up * Nodules size > or = 6 mm: CT at 3-6 months to confirm persistence. If unchanged and solid component remains < 6 mm, annual CT should be performed for 5 years Multiple nodules * Nodule size < 6 mm: CT at 3-6 months. If stable, consider CT at 2 and 4 years. * Nodules size > or = 6 mm: CT at 3-6 months. Subsequent management based on the most suspicious nodule(s) NOTE: 1) These guidelines apply to incidental nodules. These guidelines do NOT apply to patients younger than 35 years, immunocompromised patients, or patients with cancer. 2) Risk categories: * Low risk patients: Minimal or absent history of smoking and/or other known risk factors * High risk patients: History of smoking, exposure to other carcinogens, emphysema, fibrosis, upper lobe location, family history of lung cancer, etc. 3) If a nodule up to 8 mm is partly solid or is ground glass, further follow-up is required after 24 months to exclude possible slow growing adenocarcinoma. Electronically signed by: Jose Haq M.D. 05/04/2018 1:45 PM Dictated Date/Time: 05/04/2018 1:35 PM
== END | disposition home or self-care (01) ==
LOC: C.CTS 13:12
PROVIDERS: ATTEND Family Medicine
DX: R91.8 Other nonspecific abnormal finding of lung field (principal)

== ENCOUNTER 2018-05-05 14:28 | Inpatient (IN) | payer OTHER ==
[~2018-05-05] VITALS: Ht 160 cm; Wt 54.9 kg
[~2018-05-05 14:28] MED LIST changes: -CRAN500C2 PO; -CYAN100020 PO; -DILT120C68 PO; -INSDGIPEN SC; -MCRB100 PO; -MULT60CA PO; -NVLGI/PEN SC; -RANI150T2 PO; -XRL20 PO
--- NOTE | 2018-05-05 15:02 | EMERGENCY ROOM VISIT NOTE ---
History Report prepared by Ermias: Hung Bo Under the Supervision of: Rosa Isela DavidsonO. First contact with patient: 14:40 Chief Complaint: CONFUSION Stated Complaint: CONFUSION,POSSIBLE UTI History of Present Illness The patient is an 88 year old female who presents to the Emergency Room with complaints of constant, mild, confusion beginning a few days ago. The patient's daughter states she spoke on the phone last evening with the patient, and the patient stated her was sitting there with her. She reports her father four years ago. The daughter notes the patient told her she missed a family wedding today. She states the patient has also told other family members her neighbors are walking around the hallways naked. The daughter reports the patient lives alone, and she started to worry about the patient. She notes the patient has been depressed for the past few weeks as well and attributes this to getting a new PCP. The daughter states the patient was evaluated at [facility] today and could not produce a urine sample. She reports she was told to bring the patient to the ED. The daughter notes the patient has a history of a-fib and trouble with her sugar. The pt states she doesn't check her blood sugar and she eats what she wants. She state she takes Xarelto for her a.fib. The patient states she has a history of three cystoceles, macular degeneration, and a hysterectomy. She denies a history of frequent UTIs. The patient notes her daughter insists she have a UA obtained. She denies trouble urinating, changes in color or odor of urine, abdominal pain, decreased appetite, new back pain, trouble with bowel movements, fever, chills, cough, cold symptoms, chest pain, changes in medication, headaches, dizziness, and vision changes. Source of History: patient, family Onset: a few days ago Symptom Intensity: mild Quality: other (confusion) Timing: constant Associated Symptoms: No fevers, No chills, No headache, No cough, No chest pain, No abdominal pain, No back pain Note: Associated symptoms: concerns for depression Denies trouble urinating, changes in color or odor of urine, decreased appetite , trouble with bowel movements, cold symptoms, changes in medication, dizziness , and vision changes. Review of Systems See HPI for pertinent positives & negatives. A total of 10 systems reviewed and were otherwise negative. Past Medical & Surgical Medical Problems: (1) Altered mental status (2) Atrial fibrillation, new onset (3) Diabetes (4) DKA (diabetic ketoacidosis) (5) HTN (hypertension) (6) Macular degeneration (7) Nondisplaced fracture of right femur Family History Diabetes mellitus Hypertension Social History Smoking Status: Former Smoker Alcohol Use: none Drug Use: none Marital Status: Housing Status: lives alone Occupation Status: retired Current/Historical Medications Scheduled Cranberry (Vaccinium Macrocarp (Cranberry), 500 MG PO DAILY Cyanocobalamin (Vitamin B12), 1,000 MCG PO DAILY Diltiazem Hcl Ext Rel (Tiazac), 120 MG PO QAM Insulin Aspart (Novolog Flexpen), 1 DOSE SC AC Insulin Glargine (Lantus Solostar), 8 UNITS SC QPM Levothyroxine Sodium (Levothyroxine Sodium), 125 MCG PO DAILY Metoprolol Succinate (Metoprolol Succinate ER), 100 MG PO DAILY Multiple Vitamins W/ Minerals (Preservision Areds 2), 1 CAP PO BID Ranitidine HCl (Ranitidine HCl), 150 MG PO BID Rivaroxaban (Xarelto), 20 MG PO QAM Allergies Coded Allergies: No Known Allergies (Unverified , 02/28/18) Physical Exam Vital Signs Date Time Temp Pulse Resp B/P (MAP) Pulse Ox O2 Delivery O2 Flow Rate FiO2 05/05/18 17:16 76 16 143/90 96 Room Air 05/05/18 14:34 36.8 79 18 121/70 94 Room Air Physical Exam GENERAL: alert, well appearing, well nourished, no distress, non-toxic EYE EXAM: normal conjunctiva, PERRL and EOM's grossly intact OROPHARYNX: no exudate, no erythema, lips, buccal mucosa, and tongue normal and mucous membranes are moist NECK: supple, no nuchal rigidity, no adenopathy, non-tender LUNGS: Clear to auscultation. Normal chest wall mechanics, no w/r/r HEART: no murmurs, S1 normal and S2 normal ABDOMEN: abdomen soft, non-tender, normo-active bowel sounds, no masses, no rebound or guarding. BACK: Back is symmetrical on inspection and there is no deformity, no midline tenderness, no CVA tenderness. SKIN: no rashes and no bruising UPPER EXTREMITIES: upper extremities are grossly normal. Full range of motion, normal pulses. LOWER EXTREMITIES: No pitting edema. Full range of motion, normal pulses. NEURO EXAM: Normal sensorium, cranial nerves II-XII intact, normal speech, no weakness of arms, no weakness of legs. No drift. Finger to nose intact. Gross sensation intact. Patient does know that she is at the hospital, recognizes family, knows the month and season, is confused to why her daughter brought her in as well as recent events. Medical Decision & Procedures ER Provider Diagnostic Interpretation: Radiology results have been interpreted by the radiologist and reviewed by me. CT HEAD WITHOUT CONTRAST (CT) CLINICAL HISTORY: confusion COMPARISON STUDY: No previous studies for comparison. TECHNIQUE: Axial CT of the brain is performed from the vertex to the skull base. IV contrast was not administered for this examination. A dose lowering technique was utilized adhering to the principles of ALARA. CT DOSE: 614.27 mGy.cm FINDINGS: No intra or extra-axial mass lesions are visualized. There is no CT evidence of acute cortical infarction. There is no evidence of midline shift. There is no acute hemorrhage. No calvarial fractures are visualized. There are patchy white matter hypodensities likely on a small vessel basis. There is no evidence of pathologic ventricular dilatation. There is no evidence of acute sinusitis IMPRESSION: No acute intracranial findings Electronically signed by: Brent Multani M.D. 05/05/2018 3:20 PM Dictated Date/Time: 05/05/2018 3:19 PM CHEST ONE VIEW PORTABLE CLINICAL HISTORY: confusion COMPARISON STUDY: 02/28/2018 FINDINGS: The heart is borderline enlarged. There is no failure. There is no focal pulmonary consolidation. There are no pleural effusions. There is minor chronic interstitial thickening.[ IMPRESSION: No active disease in the chest. Electronically signed by: Brent Multani M.D. 05/05/2018 3:09 PM Dictated Date/Time: 05/05/2018 3:08 PM Laboratory Results Test 05/05/18 15:05 05/05/18 16:33 05/05/18 18:00 Immature Granulocyte % (Auto) 0.7 % White Blood Count 8.76 K/uL (4.8-10.8) Red Blood Count 4.41 M/uL (4.2-5.4) Hemoglobin 10.1 g/dL (12.0-16.0) Hematocrit 33.2 % (37-47) Mean Corpuscular Volume 75.3 fL (80-100) Mean Corpuscular Hemoglobin 22.9 pg (25-34) Mean Corpuscular Hemoglobin Concent 30.4 g/dl (32-36) Platelet Count 256 K/uL (130-400) Mean Platelet Volume 9.6 fL (7.4-10.4) Neutrophils (%) (Auto) 74.7 % Lymphocytes (%) (Auto) 15.2 % Monocytes (%) (Auto) 9.0 % Eosinophils (%) (Auto) 0.2 % Basophils (%) (Auto) 0.2 % Neutrophils # (Auto) 6.54 K/uL (1.4-6.5) Lymphocytes # (Auto) 1.33 K/uL (1.2-3.4) Monocytes # (Auto) 0.79 K/uL (0.11-0.59) Eosinophils # (Auto) 0.02 K/uL (0-0.5) Basophils # (Auto) 0.02 K/uL (0-0.2) Immature Granulocyte # (Auto) 0.06 K/uL (0.00-0.02) Prothrombin Time 13.5 SECONDS (9.0-12.0) Prothromb Time International Ratio 1.3 (0.9-1.1) Total Bilirubin 0.6 mg/dl (0.2-1) Aspartate Amino Transf (AST/SGOT) 21 U/L (15-37) Alanine Aminotransferase (ALT/SGPT) 18 U/L (12-78) Alkaline Phosphatase 146 U/L (45-117) Troponin I < 0.015 ng/ml (0-0.045) Pro-B-Type Natriuretic Peptide 3594 pg/ml (0-1800) Total Protein 7.5 gm/dl (6.4-8.2) Albumin 3.5 gm/dl (3.4-5.0) Globulin 4.0 gm/dl (2.5-4.0) Albumin/Globulin Ratio 0.9 (0.9-2) Beta-Hydroxybutyric Acid 3.98 mg/dL (0.2-2.81) Thyroid Stimulating Hormone (TSH) 0.882 uIu/ml (0.300-4.500) Urine Color YELLOW Urine Appearance TURBID (CLEAR) Urine pH 5.0 (4.5-7.5) Urine Specific Arthur 1.023 (1.000-1.030) Urine Protein NEG (NEG) Urine Glucose (UA) 3+ (NEG) Urine Ketones 1+ (NEG) Urine Occult Blood TRACE (NEG) Urine Nitrite NEG (NEG) Urine Bilirubin NEG (NEG) Urine Urobilinogen NEG (NEG) Urine Leukocyte Esterase MODERATE (NEG) Urine WBC (Auto) >30 /hpf (0-5) Urine RBC (Auto) 0-4 /hpf (0-4) Urine Hyaline Casts (Auto) 1-5 /lpf (0-5) Urine Epithelial Cells (Auto) >30 /lpf (0-5) Urine Bacteria (Auto) 1+ (NEG) Urine Yeast (Auto) PRESENT (NONE PRSENT) Bedside Hemoglobin 10.2 g/dl (12.0-16.0) Bedside Hematocrit 30 % (37-47) Bedside Sodium 134 mEq/L (135-144) Bedside Potassium 3.7 mEq/L (3.3-5.0) Bedside Chloride 97 mEq/L (101-112) Bedside Total CO2 21 mEq/l (24-31) Bedside Blood Urea Nitrogen 23 mg/dl (7-18) Bedside Creatinine 0.8 mg/dl (0.6-1.3) Bedside Glucose (other) 185 mg/dl (70-99) Bedside Ionized Calcium (Moshe) 1.13 mmol/l (1.12-1.32) Laboratory results per my review. Medications Administered Medications (Trade) Dose Ordered Sig/Maryann Route Start Time Stop Time Status Last Admin Dose Admin Sodium Chloride 1,000 ml @ 999 mls/hr Q1H1M STAT IV 05/05/18 15:54 05/05/18 16:54 DC 05/05/18 15:59 999 MLS/HR Insulin Human Regular (novoLIN-R U-100 PER UNIT) 6 units NOW STAT IV 05/05/18 15:54 05/05/18 15:55 DC 05/05/18 16:13 6 UNITS Ceftriaxone Sodium (Rocephin Inj) 1 gm NOW STAT IV 05/05/18 17:00 05/05/18 17:01 DC 05/05/18 17:15 1 GM ECG Per My Interpretation Indication: weakness Rate (beats per minute): 71 Rhythm: atrial fibrillation Findings: T-wave inversion (V5 and V6), other (Normal axis. Normal QRS and QTc) ED Course 1441: The patient was evaluated in room A02. A complete history and physical exam was performed. 1554: Ordered Insulin Human Regular 6 units IV, Sodium Chloride 1000 ml @ 999 mls/hr IV 1601: Pt is getting insulin. 1700: Ordered Rocephin 1gm IV 1709: Upon reevaluation, the patient is tearful about the test results. I discussed the findings and the treatment plan with the patient. She and her daughter express agreement and understanding. The patient will be evaluated for further management. 1712: Paged Dr. Moran, [facility] Hospitalist 1713: Ordered Sodium Chloride 1000 ml @ 125 mls/hr IV Medical Decision Differential diagnoses includes but is not limited to toxic, metabolic, infectious, traumatic, cardiac, neurologic, hematologic, psychiatric and inflammatory etiologies. Patient likely encephalopathic due to evolving urinary tract infection as well as uncontrolled diabetes and dehydration. Likely patient's hyperglycemia is chronic she does not seem to be a compliant well-managed diabetic and does not check her sugar. Likely her dehydration also contributed to this problem. Do not suspect that DKA is the sole reason for her recent confusion. Patient's BMP and sugar were markedly improved here with 1 L of IV fluids and 1 dose of IV insulin. Daughter also concerned about worsening depression since the loss of her and feels this could be contributed her confusion as well. The daughter does not feel that she is an imminent risk to herself or others. Family is however concerned about her ability to care for self, especially in this confused state. Did discuss with the patient as well as family at bedside all of the results and my concern given several findings noted today on our evaluation. They were in agreement with additional evaluation and management by the hospitalist. I do not suspect bacteremia/sepsis, I do not suspect occult obstructive uropathy. I do not suspect additional acute neurologic pathology including TIA/CVA or occult FUNNEL SETTER infection. No evidence for ACS or additional cardiopulmonary pathology. Patient hemodynamically stable here throughout. Patient was noted to be anemic also, however compared to prior results this appears near her baseline. Medication Reconcilliation Current Medication List: was personally reviewed by me Blood Pressure Screening Patient's blood pressure: Normal blood pressure Blood pressure disposition: Did not require urgent referral Consults Time Called: 1711 Consulting Physician: Dr. Moran, [facility] Hospitalist Impression Primary Impression: Confusion Additional Impressions: UTI (urinary tract infection) Hyperglycemia Dehydration Depressed Anemia Cystocele Scribe Attestation The scribe's documentation has been prepared under my direction and personally reviewed by me in its entirety. I confirm that the note above accurately reflects all work, treatment, procedures, and medical decision making performed by me. Departure Information Dispostion Being Evaluated By Hospitalist Referrals Liam Benavides D.O. (PCP) Patient Instructions My [facility] Problem Qualifiers Additional Impressions: UTI (urinary tract infection) Urinary tract infection type: acute cystitis Hematuria presence: with hematuria Qualified Codes: N30.01 - Acute cystitis with hematuria Depressed Depression Type: unspecified Qualified Codes: F32.9 - Major depressive disorder, single episode, unspecified Anemia Anemia type: unspecified type Qualified Codes: D64.9 - Anemia, unspecified Cystocele Cystocele location: midline Qualified Codes: N81.11 - Cystocele, midline
--- NOTE | 2018-05-05 15:10 | DIAGNOSTIC IMAGING REPORT ---
CHEST ONE VIEW PORTABLE CLINICAL HISTORY: confusion COMPARISON STUDY: 02/28/2018 FINDINGS: The heart is borderline enlarged. There is no failure. There is no focal pulmonary consolidation. There are no pleural effusions. There is minor chronic interstitial thickening.[ IMPRESSION: No active disease in the chest. Electronically signed by: Brent Multani M.D. 05/05/2018 3:09 PM Dictated Date/Time: 05/05/2018 3:08 PM
[2018-05-05 15:21] LABS: BASO % 0.2 %; BASO ABS # 0.02 K/uL (0-0.2); EOS % 0.2 %; EOS ABS # 0.02 K/uL (0-0.5); HEMATOCRIT 33.2 % (37-47); HEMOGLOBIN 10.1 g/dL (12.0-16.0); IG# 0.06 K/uL (0.00-0.02); LYMPH % 15.2 %; LYMPH ABS # 1.33 K/uL (1.2-3.4); MEAN CELL VOLUME 75.3 fL (80-100); MEAN CORPUSCULAR HEMOGLOBIN 22.9 pg (25-34); MEAN CORPUSCULAR HGB CONC 30.4 g/dl (32-36); MEAN PLATELET VOLUME 9.6 fL (7.4-10.4); MONO ABS # 0.79 K/uL (0.11-0.59); NEUT % 74.7 %; NEUT ABS # 6.54 K/uL (1.4-6.5); PLATELET COUNT 256 K/uL (130-400); RED CELL DISTRIBUTION WIDTH CV 16.4 % (11.5-14.5); RED CELL DISTRIBUTION WIDTH SD 45.3 fL (36.4-46.3); WHITE BLOOD COUNT 8.76 K/uL (4.8-10.8)
--- NOTE | 2018-05-05 15:21 | DIAGNOSTIC IMAGING REPORT ---
CT HEAD WITHOUT CONTRAST (CT) CLINICAL HISTORY: confusion COMPARISON STUDY: No previous studies for comparison. TECHNIQUE: Axial CT of the brain is performed from the vertex to the skull base. IV contrast was not administered for this examination. A dose lowering technique was utilized adhering to the principles of ALARA. CT DOSE: 614.27 mGy.cm FINDINGS: No intra or extra-axial mass lesions are visualized. There is no CT evidence of acute cortical infarction. There is no evidence of midline shift. There is no acute hemorrhage. No calvarial fractures are visualized. There are patchy white matter hypodensities likely on a small vessel basis. There is no evidence of pathologic ventricular dilatation. There is no evidence of acute sinusitis IMPRESSION: No acute intracranial findings Electronically signed by: Brent Multani M.D. 05/05/2018 3:20 PM Dictated Date/Time: 05/05/2018 3:19 PM
[2018-05-05 15:28] LABS: INR 1.3 (0.9-1.1)
[2018-05-05 15:42] LABS: ALBUMIN 3.5 gm/dl (3.4-5.0); ALT/SGPT 18 U/L (12-78); AST/SGOT 21 U/L (15-37); BLOOD UREA NITROGEN 26 mg/dl (7-18); CARBON DIOXIDE 21 mmol/L (21-32); CREATININE 1.39 mg/dl (0.60-1.20); GLUCOSE 416 mg/dl (70-99); POTASSIUM 4.1 mmol/L (3.5-5.1); SODIUM 128 mmol/L (136-145)
[2018-05-05 15:45] LABS: ALKALINE PHOSPHATASE 146 U/L (45-117); TOTAL PROTEIN 7.5 gm/dl (6.4-8.2)
[2018-05-05] MEDS ORDERED: SODIUM CHLORIDE 0.9% 1000ML 1,000 ML IV STA ×2 (15:54→17:13)
[2018-05-05] MEDS ORDERED: NovoLIN-R INSULIN PER UNIT CHARGE IV STA (15:54)
[2018-05-05] MEDS ORDERED: XRL20 PO (16:59)
[2018-05-05] MEDS ORDERED: CEFTRIAXONE SOD INJ 1 GM ADDVIAL IV STA (17:00)
[2018-05-05 18:09] LABS: ISTAT CREATININE 0.8 mg/dl (0.6-1.3); ISTAT IONIZED CALCIUM 1.13 mmol/l (1.12-1.32); ISTAT POTASSIUM 3.7 mEq/L (3.3-5.0)
--- NOTE | 2018-05-05 18:28 | History and Physical ---
History & Physical Date & Time of Service: May 05, 2018 at 18:08 Chief Complaint: Confusion,Possible Uti Primary Care Physician: Liam Benavides D.O. History of Present Illness Source: family, hospital records, other 88 y/o F Hx DM, HTN, AF, hypothyroidism. Presents with confusion and hallucinations. Her daughter noted that she was hallucinating her who had 4 years ago. She brought her to an urgent care center and was directed to the ER. She was not able to produce a urine sample at the urgent care center. Initial labs obtained in the hospital demonstrate ARF, hyponatremia, hyperglycemia and anemia. A UA is (+). Past Medical/Surgical History 1) HTN 2) DM II 3) Chronic atrial fibrillation 4) Macular degeneration 5) Hypothyroidism Surgical: R femoral fracture - 09/2017 Family History Diabetes mellitus Hypertension Social History Pt normally lives alone and maintains independence Smoking Status: Former Smoker Drug Use: none Marital Status: Occupational Status: retired Immunizations History of Influenza Vaccine: Yes History of Tetanus Vaccine?: Unknown History of Pneumococcal: Unknown History of Hepatitis B Vaccine: Unknown Allergies Coded Allergies: No Known Allergies (Unverified , 02/28/18) Home Medications Scheduled Cranberry (Vaccinium Macrocarp (Cranberry), 500 MG PO DAILY Cyanocobalamin (Vitamin B12), 1,000 MCG PO DAILY Diltiazem Hcl Ext Rel (Tiazac), 120 MG PO QAM Insulin Aspart (Novolog Flexpen), 1 DOSE SC AC Insulin Glargine (Lantus Solostar), 8 UNITS SC QPM Levothyroxine Sodium (Levothyroxine Sodium), 125 MCG PO DAILY Metoprolol Succinate (Metoprolol Succinate ER), 100 MG PO DAILY Multiple Vitamins W/ Minerals (Preservision Areds 2), 1 CAP PO BID Ranitidine HCl (Ranitidine HCl), 150 MG PO BID Rivaroxaban (Xarelto), 20 MG PO QAM Review of Systems Cannot obtain reliable ROS from pt who presents for a CC of AMS Physical Exam Vital Signs Date Time Temp Pulse Resp B/P (MAP) Pulse Ox O2 Delivery O2 Flow Rate FiO2 05/05/18 17:16 76 16 143/90 96 Room Air 05/05/18 14:34 36.8 79 18 121/70 94 Room Air General Appearance: + pertinent finding (Clearly disoriented, elderly female - in good spirits - no distress ) Head: normocephalic Eyes: normal inspection ENT: normal ENT inspection Neck: supple, no JVD Respiratory/Chest: chest non-tender, lungs clear Cardiovascular: no edema, no gallop, + irregularly irregular Abdomen/GI: normal bowel sounds, non tender, soft Back: normal inspection, no CVA tenderness Extremities/Musculoskelatal: normal inspection, no calf tenderness Neurologic/Psych: metal loader II-XII nml as tested, no motor/sensory deficits, alert, + pertinent finding (AAO x 1) Skin: normal color, warm/dry Diagnostics Laboratory Results Results Past 24 Hours Test 05/05/18 15:05 05/05/18 16:33 05/05/18 17:12 Range/Units White Blood Count 8.76 4.8-10.8 K/uL Red Blood Count 4.41 4.2-5.4 M/uL Hemoglobin 10.1 12.0-16.0 g/dL Hematocrit 33.2 37-47 % Mean Corpuscular Volume 75.3 80-100 fL Mean Corpuscular Hemoglobin 22.9 25-34 pg Mean Corpuscular Hemoglobin Concent 30.4 32-36 g/dl Platelet Count 256 130-400 K/uL Mean Platelet Volume 9.6 7.4-10.4 fL Neutrophils (%) (Auto) 74.7 % Lymphocytes (%) (Auto) 15.2 % Monocytes (%) (Auto) 9.0 % Eosinophils (%) (Auto) 0.2 % Basophils (%) (Auto) 0.2 % Neutrophils # (Auto) 6.54 1.4-6.5 K/uL Lymphocytes # (Auto) 1.33 1.2-3.4 K/uL Monocytes # (Auto) 0.79 0.11-0.59 K/uL Eosinophils # (Auto) 0.02 0-0.5 K/uL Basophils # (Auto) 0.02 0-0.2 K/uL RDW Standard Deviation 45.3 36.4-46.3 fL RDW Coefficient of Variation 16.4 11.5-14.5 % Immature Granulocyte % (Auto) 0.7 % Immature Granulocyte # (Auto) 0.06 0.00-0.02 K/uL Prothrombin Time 13.5 9.0-12.0 SECONDS Prothromb Time International Ratio 1.3 0.9-1.1 Sodium Level 128 136-145 mmol/L Potassium Level 4.1 3.5-5.1 mmol/L Chloride Level 93 98-107 mmol/L Carbon Dioxide Level 21 21-32 mmol/L Anion Gap 14.0 3-11 mmol/L Blood Urea Nitrogen 26 7-18 mg/dl Creatinine 1.39 0.60-1.20 mg/dl Est Creatinine Clear Calc Drug Dose 23.1 ml/min Estimated GFR () 39.1 Estimated GFR (Non- 33.8 BUN/Creatinine Ratio 18.8 10-20 Random Glucose 416 70-99 mg/dl Calcium Level 9.0 8.5-10.1 mg/dl Magnesium Level 2.0 1.8-2.4 mg/dl Total Bilirubin 0.6 0.2-1 mg/dl Aspartate Amino Transf (AST/SGOT) 21 15-37 U/L Alanine Aminotransferase (ALT/SGPT) 18 12-78 U/L Alkaline Phosphatase 146 45-117 U/L Troponin I < 0.015 0-0.045 ng/ml Pro-B-Type Natriuretic Peptide 3594 0-1800 pg/ml Total Protein 7.5 6.4-8.2 gm/dl Albumin 3.5 3.4-5.0 gm/dl Globulin 4.0 2.5-4.0 gm/dl Albumin/Globulin Ratio 0.9 0.9-2 Beta-Hydroxybutyric Acid 3.98 0.2-2.81 mg/dL Thyroid Stimulating Hormone (TSH) 0.882 0.300-4.500 uIu/ml Urine Color YELLOW Urine Appearance TURBID CLEAR Urine pH 5.0 4.5-7.5 Urine Specific Dike 1.023 1.000-1.030 Urine Protein NEG NEG Urine Glucose (UA) 3+ NEG Urine Ketones 1+ NEG Urine Occult Blood TRACE NEG Urine Nitrite NEG NEG Urine Bilirubin NEG NEG Urine Urobilinogen NEG NEG Urine Leukocyte Esterase MODERATE NEG Urine WBC (Auto) >30 0-5 /hpf Urine RBC (Auto) 0-4 0-4 /hpf Urine Hyaline Casts (Auto) 1-5 0-5 /lpf Urine Epithelial Cells (Auto) >30 0-5 /lpf Urine Bacteria (Auto) 1+ NEG Urine Yeast (Auto) PRESENT NONE PRSENT Bedside Glucose 236 70-90 mg/dl Microbiology Results 05/05/18 Urine Culture, Received Pending Diagnostic Radiology No acute findings on head CT CXR normal Impression Assessment and Plan 88 y/o F Hx DM, HTN, AF, hypothyroidism. Presents with confusion and hallucinations. Her daughter noted that she was hallucinating her who had 4 years ago. She brought her to an urgent care center and was directed to the ER. She was not able to produce a urine sample at the urgent care center. Initial labs obtained in the hospital demonstrate ARF, hyponatremia, hyperglycemia and anemia. A UA is (+). 1) Altered mental status - may be multifactorial due to INFECTION, dehydration, Hyponatremia. She is placed on Ceftriaxone pending culture results. IVF provided. 2) Dehydration, ARF, hyponatremia - IVF provided - BMP will be repeated AM 3) AF - cont Xarelto, 4) Anemia - microcytic - appears to be stable dating to 02/26 - we will check an iron profile (normal 11/26) and an FOB 5) DM - hyperglycemia - placed on SS - Lantus provided 6) Hypothyroidism - TSH is WNL Full code - Xarelto prophylaxis Total time for this admit including review of labs, meds, imgaing, records - discussion with pt, daughter and ER attending - 40 min Resuscitation Status VTE Prophylaxis Will order VTE Prophylaxis: Yes
[2018-05-05] MEDS ORDERED: POLYETHYLENE (MIRALAX) 17 GM PACK PO PRN (18:30)
[2018-05-05] MEDS ORDERED: ACETAMINOPHEN 325 MG TAB PO PRN (18:30)
[2018-05-05] MEDS ORDERED: ALUMINUM/MAGNESIUM/SIMETH (MAALOX MAX) 30 ML UDC PO PRN (18:30)
[2018-05-05] MEDS ORDERED: MAGNESIUM HYDROXIDE SUSP 30 ML UDC PO PRN (18:30)
[2018-05-05] MEDS ORDERED: ONDANSETRON INJ 2 MG/ML 2 ML VIAL IV PRN (18:30)
[2018-05-05] MEDS ORDERED: INSDGIPEN SC (18:58)
[2018-05-05] MEDS ORDERED: GLUCAGON FOR INJ 1 MG VIAL IM PRN (19:15)
[2018-05-05] MEDS ORDERED: GLUCOSE 40% GEL 15 GM TUBE PO PRN (19:15)
[2018-05-05] MEDS ORDERED: DEXTROSE 50% 50 ML SYR IV PRN (19:15)
[2018-05-05] MEDS ORDERED: CARBOHYDRATES FOR HYPOGLYCEMIA PO PRN (19:15)
[2018-05-05] MEDS ORDERED: GLUCOSE 10 TABS/TUBE PO PRN (19:15)
[2018-05-05] MEDS ORDERED: NVLGI/PEN SC (19:19)
[2018-05-05] MEDS ORDERED: CYAN100020 PO (19:19)
[2018-05-05] MEDS ORDERED: RANI150T2 PO (19:19)
[2018-05-05] MEDS ORDERED: DILT120C68 PO (19:19)
[2018-05-05] MEDS ORDERED: MULT60CA PO (19:31)
[2018-05-05] MEDS ORDERED: CRAN500C2 PO (19:31)
[2018-05-05] MEDS: SODIUM CHLORIDE 0.9% 1000ML 1,000 ML IV SCH (20:55)
[2018-05-05 20:59] VITALS: O2SAT 96; BMI 21.4
[2018-05-05 21:16] VITALS: BP 147/81; PULSE 85; TEMP 36.7; O2SAT 96
[2018-05-05] MEDS ORDERED: INSULIN GLARGINE SOLOSTAR 100 UNITS/ML 3 ML PEN SC ONE (21:30)
[2018-05-05] MEDS: INSULIN GLARGINE SOLOSTAR 100 UNITS/ML 3 ML PEN SC SCH (21:48)
[2018-05-05] MEDS: INSULIN ASPART 100 UNITS/ML 3 ML PEN SC SCH (21:49)
[2018-05-05 22:41] VITALS: BP 156/80; PULSE 91; TEMP 36.8; O2SAT 96
[2018-05-06 06:00] LABS: HEMATOCRIT 30.2 % (37-47); HEMOGLOBIN 9.3 g/dL (12.0-16.0); MEAN CELL VOLUME 74.9 fL (80-100); MEAN CORPUSCULAR HEMOGLOBIN 23.1 pg (25-34); MEAN CORPUSCULAR HGB CONC 30.8 g/dl (32-36); MEAN PLATELET VOLUME 9.6 fL (7.4-10.4); PLATELET COUNT 212 K/uL (130-400); RED CELL DISTRIBUTION WIDTH CV 16.2 % (11.5-14.5); RED CELL DISTRIBUTION WIDTH SD 44.5 fL (36.4-46.3); WHITE BLOOD COUNT 6.39 K/uL (4.8-10.8)
[2018-05-06] MEDS: LEVOTHYROXINE 125 MCG TAB PO SCH (06:21)
[2018-05-06] MEDS: SODIUM CHLORIDE 0.9% 1000ML 1,000 ML IV SCH ×2 (06:22→12:41)
[2018-05-06 06:37] LABS: CALCIUM 8.1 mg/dl (8.5-10.1); CREATININE 0.77 mg/dl (0.60-1.20); POTASSIUM 3.2 mmol/L (3.5-5.1)
[2018-05-06 07:19] VITALS: BP 158/88; PULSE 111; TEMP 36.6; O2SAT 97
[2018-05-06] MEDS: DILTIAZEM HCL 120 MG EXT REL CAP PO SCH (07:50)
[2018-05-06] MEDS: CYANOCOBALAMIN 500 MCG TAB (VIT B-12) PO SCH (07:51)
[2018-05-06] MEDS: METOPROLOL SUCC 50MG EXT REL TAB PO SCH (07:51)
[2018-05-06] MEDS ORDERED: POTASSIUM CHLORIDE 20 MEQ TABCR PO STA (07:52)
[2018-05-06 08:30] VITALS: O2SAT 97
[2018-05-06] MEDS: INSULIN ASPART 100 UNITS/ML 3 ML PEN SC SCH ×4 (08:53→20:17)
[2018-05-06] MEDS: RANITIDINE HCL 150 MG TAB PO SCH (08:54)
[2018-05-06 10:10] VITALS: BMI 21.4
--- NOTE | 2018-05-06 12:37 | Hospitalist Progress Note ---
Hospitalist Progress Note Date of Service May 06, 2018. Subjective Pt evaluation today including: conversation w/ patient, physical exam, chart review, lab review, review of studies, review of inpatient medication list Patient seen and evaluated. No acute events overnight. Verbalizes no complaints. Denies dysuria. LISSETT resolved. Glucose readings are improving. States she knows they run high at home too and reports avoiding sugar Constitutional: No fever, No chills, No fatigue Respiratory: No cough, No shortness of breath Cardiovascular: No chest pain Abdomen: No pain, No nausea, No vomiting, No diarrhea, No constipation Musculoskeletal: No swelling, No calf pain Female : No dysuria Heme: No abnormal bleeding/bruising Medications Current Inpatient Medications Medications (Trade) Dose Ordered Sig/Maryann Route Start Time Stop Time Status Last Admin Dose Admin Diltiazem HCl (TIAzac CAP) 120 mg QAM PO 05/06/18 08:00 06/05/18 08:59 05/06/18 07:50 120 MG Insulin Glargine (Lantus Solostar Pen) 8 units QPM SC 05/05/18 21:00 06/04/18 20:59 05/05/18 21:48 8 UNITS Levothyroxine Sodium (Synthroid Tab) 125 mcg DAILYBB PO 05/06/18 06:30 06/05/18 06:59 05/06/18 06:21 125 MCG Ranitidine HCl (zANTac TAB) 150 mg DAILY PO 05/06/18 08:00 06/05/18 07:59 05/06/18 08:54 150 MG Rivaroxaban (Xarelto Tab) 15 mg QDD PO 05/06/18 17:00 06/05/18 16:59 Cyanocobalamin (Vitamin B-12 Tab) 1,000 mcg DAILY PO 05/06/18 08:00 06/05/18 08:59 05/06/18 07:51 1,000 MCG Metoprolol Succinate (Toprol Xl Tab) 100 mg DAILY PO 05/06/18 08:00 06/05/18 08:59 05/06/18 07:51 100 MG Ceftriaxone Sodium 1 gm/ Dextrose 50 ml @ 100 mls/hr Q24H IV 05/06/18 17:00 05/16/18 16:59 Sodium Chloride 1,000 ml @ 100 mls/hr Q10H IV 05/05/18 20:45 05/06/18 16:44 05/06/18 06:22 100 MLS/HR Acetaminophen (Tylenol Tab) 650 mg Q4H PRN PO 05/05/18 18:30 06/04/18 18:29 Al Hydrox/Mg Hydrox/Simethicone (Maalox Max Susp) 15 ml Q4H PRN PO 05/05/18 18:30 06/04/18 18:29 Magnesium Hydroxide (Milk Of Magnesia Susp) 30 ml Q6H PRN PO 05/05/18 18:30 06/04/18 18:29 Polyethylene (Miralax Powder Packet) 17 gm DAILY PRN PO 05/05/18 18:30 06/04/18 18:29 Ondansetron HCl (Zofran Inj) 4 mg Q6H PRN IV 05/05/18 18:30 06/04/18 18:29 Glucose (Glucose 40% Gel) 15-30 GRAMS 15 GRAMS... UD PRN PO 05/05/18 19:15 06/04/18 19:14 Glucose (Glucose Chew Tab) 4-8 Tablets 4 Tabl... UD PRN PO 05/05/18 19:15 06/04/18 19:14 Dextrose (Dextrose 50% 50ML Syringe) 25-50ML 25ML FOR ... UD PRN IV 05/05/18 19:15 06/04/18 19:14 Glucagon (Glucagon Inj) 1 mg UD PRN IM 05/05/18 19:15 06/04/18 19:14 Carbohydrates (Carbohydrates For Hypoglycemia) 15-30 GRAMS 15 grams if BSG 54-69... UD PRN PO 05/05/18 19:15 06/04/18 19:14 Insulin Aspart (novoLOG ASPART) SLIDING SCALE G... ACHS SC 05/05/18 21:00 06/04/18 20:59 05/06/18 08:53 2 UNITS Objective Vital Signs Date Time Temp Pulse Resp B/P (MAP) Pulse Ox O2 Delivery O2 Flow Rate FiO2 05/06/18 08:30 97 Room Air 05/06/18 07:19 36.6 111 16 158/88 (111) 97 Room Air 05/06/18 00:00 Room Air 8/25/18 22:41 36.8 91 18 156/80 (105) 96 Room Air 05/05/18 21:16 36.7 85 16 147/81 (103) 96 Room Air 05/05/18 20:59 96 Room Air 05/05/18 20:20 86 18 135/90 96 Room Air 05/05/18 19:08 87 18 136/97 95 Room Air 05/05/18 17:16 76 16 143/90 96 Room Air 05/05/18 14:34 36.8 79 18 121/70 94 Room Air Physical Exam General Appearance: WD/WN, no apparent distress Eyes: sclerae normal Neck: supple, no JVD, trachea midline Respiratory/Chest: lungs clear, no respiratory distress, no accessory muscle use Cardiovascular: + irregularly irregular Abdomen: normal bowel sounds, non tender, soft Neurologic/Psychiatric: alert Skin: normal color, warm/dry Laboratory Results Last 24 Hours Test 05/05/18 15:05 05/05/18 16:33 05/05/18 17:12 05/05/18 18:00 White Blood Count 8.76 K/uL Red Blood Count 4.41 M/uL Hemoglobin 10.1 g/dL Hematocrit 33.2 % Mean Corpuscular Volume 75.3 fL Mean Corpuscular Hemoglobin 22.9 pg Mean Corpuscular Hemoglobin Concent 30.4 g/dl Platelet Count 256 K/uL Mean Platelet Volume 9.6 fL Neutrophils (%) (Auto) 74.7 % Lymphocytes (%) (Auto) 15.2 % Monocytes (%) (Auto) 9.0 % Eosinophils (%) (Auto) 0.2 % Basophils (%) (Auto) 0.2 % Neutrophils # (Auto) 6.54 K/uL Lymphocytes # (Auto) 1.33 K/uL Monocytes # (Auto) 0.79 K/uL Eosinophils # (Auto) 0.02 K/uL Basophils # (Auto) 0.02 K/uL RDW Standard Deviation 45.3 fL RDW Coefficient of Variation 16.4 % Immature Granulocyte % (Auto) 0.7 % Immature Granulocyte # (Auto) 0.06 K/uL Prothrombin Time 13.5 SECONDS Prothromb Time International Ratio 1.3 Sodium Level 128 mmol/L Potassium Level 4.1 mmol/L Chloride Level 93 mmol/L Carbon Dioxide Level 21 mmol/L Anion Gap 14.0 mmol/L 20.0 mmol/L Blood Urea Nitrogen 26 mg/dl Creatinine 1.39 mg/dl Est Creatinine Clear Calc Drug Dose 23.1 ml/min Estimated GFR () 39.1 Estimated GFR (Non- 33.8 BUN/Creatinine Ratio 18.8 Random Glucose 416 mg/dl Calcium Level 9.0 mg/dl Magnesium Level 2.0 mg/dl Total Bilirubin 0.6 mg/dl Aspartate Amino Transf (AST/SGOT) 21 U/L Alanine Aminotransferase (ALT/SGPT) 18 U/L Alkaline Phosphatase 146 U/L Troponin I < 0.015 ng/ml Pro-B-Type Natriuretic Peptide 3594 pg/ml Total Protein 7.5 gm/dl Albumin 3.5 gm/dl Globulin 4.0 gm/dl Albumin/Globulin Ratio 0.9 Beta-Hydroxybutyric Acid 3.98 mg/dL Thyroid Stimulating Hormone (TSH) 0.882 uIu/ml Urine Color YELLOW Urine Appearance TURBID Urine pH 5.0 Urine Specific [place] 1.023 Urine Protein NEG Urine Glucose (UA) 3+ Urine Ketones 1+ Urine Occult Blood TRACE Urine Nitrite NEG Urine Bilirubin NEG Urine Urobilinogen NEG Urine Leukocyte Esterase MODERATE Urine WBC (Auto) >30 /hpf Urine RBC (Auto) 0-4 /hpf Urine Hyaline Casts (Auto) 1-5 /lpf Urine Epithelial Cells (Auto) >30 /lpf Urine Bacteria (Auto) 1+ Urine Yeast (Auto) PRESENT Bedside Glucose 236 mg/dl Bedside Hemoglobin 10.2 g/dl Bedside Hematocrit 30 % Bedside Sodium 134 mEq/L Bedside Potassium 3.7 mEq/L Bedside Chloride 97 mEq/L Bedside Total CO2 21 mEq/l Bedside Blood Urea Nitrogen 23 mg/dl Bedside Creatinine 0.8 mg/dl Bedside Glucose (other) 185 mg/dl Bedside Ionized Calcium (Moshe) 1.13 mmol/l Test 05/05/18 21:00 05/05/18 21:02 05/05/18 23:58 05/06/18 05:33 Bedside Glucose 356 mg/dl 357 mg/dl 239 mg/dl White Blood Count 6.39 K/uL Red Blood Count 4.03 M/uL Hemoglobin 9.3 g/dL Hematocrit 30.2 % Mean Corpuscular Volume 74.9 fL Mean Corpuscular Hemoglobin 23.1 pg Mean Corpuscular Hemoglobin Concent 30.8 g/dl RDW Standard Deviation 44.5 fL RDW Coefficient of Variation 16.2 % Platelet Count 212 K/uL Mean Platelet Volume 9.6 fL Sodium Level 138 mmol/L Potassium Level 3.2 mmol/L Chloride Level 106 mmol/L Carbon Dioxide Level 21 mmol/L Anion Gap 11.0 mmol/L Blood Urea Nitrogen 19 mg/dl Creatinine 0.77 mg/dl Est Creatinine Clear Calc Drug Dose 41.8 ml/min Estimated GFR () 79.9 Estimated GFR (Non- 68.9 BUN/Creatinine Ratio 24.5 Random Glucose 87 mg/dl Calcium Level 8.1 mg/dl Magnesium Level 1.7 mg/dl Iron Level 14 mcg/dl Total Iron Binding Capacity 329 mcg/dl Vitamin B12 Level > 2000 pg/mL Folate 12.81 ng/mL Test 05/06/18 08:06 Bedside Glucose 101 mg/dl Assessment and Plan 88 y/o F Hx DM, HTN, AF, hypothyroidism. Presents with confusion and hallucinations. Her daughter noted that she was hallucinating her who had 4 years ago. She brought her to an urgent care center and was directed to the ER. She was not able to produce a urine sample at the urgent care center. Initial labs obtained in the hospital demonstrate ARF, hyponatremia, hyperglycemia and anemia. A UA is (+). Metabolic Encephalopathy 2/2 Dehydration/Hyponatremia/Urinary Tract Infection: IMPROVING - Hyponatremia resolved with IVF and will continue gentle hydration given additional hyperglycemia - Rocephin 1 g IV daily awaiting UCx; NSS at 75 mL/hr T2DM with Hyperglycemia: A1c 9.3 - Lantus 8 units SC daily and SSI Chronic Microcytic Anemia: - Stable but slightly reduced likely from dilution - iron level low and awaiting FOBT - Can start iron supplementation Persistent Atrial Fibrillation: - Diltiazem 120 mg daily and Toprol XL 100 mg daily; Xarelto 15 mg daily Hypothyroidism: - Synthroid 125 mcg daily DVT Prophylaxis: Xarelto Code Status: FULL RESUSCITATION Disposition: Await UCx - will obtain PT/OT - patient does live alone with good family support. - Discussed with daughter that patient may D/C tomorrow or next day pending on cx sensitivities and clinical status. Daughter feels confident the patient will do well at home as she does have good family support as long as she is back to baseline - daughter will be in tomorrow to see patient Continued [facility] stay due to: multiple IV medications needed Discharge planning: home
[2018-05-06 15:08] VITALS: BP 138/68; PULSE 71; TEMP 36.9; O2SAT 97
[2018-05-06] MEDS: CEFTRIAXONE SOD INJ 1 GM in DEXTROSE 5% ADD-VANTAGE 50ML 50 ML IV SCH (16:31)
[2018-05-06] MEDS: RIVAROXABAN TAB 15 MG TAB PO SCH (16:31)
[2018-05-06] MEDS: FERROUS SULFATE 325 MG TAB PO SCH (17:35)
[2018-05-06] MEDS: INSULIN GLARGINE SOLOSTAR 100 UNITS/ML 3 ML PEN SC SCH (20:17)
[2018-05-06] MEDS ORDERED: NURSING VERBAL MED ORDER ONE (21:15)
[2018-05-06 23:03] VITALS: BP 164/83; PULSE 93; TEMP 36.7; O2SAT 94
[2018-05-07 05:44] LABS: HEMOGLOBIN 9.5 g/dL (12.0-16.0); MEAN CELL VOLUME 75.8 fL (80-100); MEAN CORPUSCULAR HEMOGLOBIN 23.2 pg (25-34); MEAN CORPUSCULAR HGB CONC 30.6 g/dl (32-36); MEAN PLATELET VOLUME 9.5 fL (7.4-10.4); PLATELET COUNT 232 K/uL (130-400); RED CELL DISTRIBUTION WIDTH CV 16.4 % (11.5-14.5); RED CELL DISTRIBUTION WIDTH SD 45.1 fL (36.4-46.3); WHITE BLOOD COUNT 6.98 K/uL (4.8-10.8)
[2018-05-07] MEDS: LEVOTHYROXINE 125 MCG TAB PO SCH (06:00)
[2018-05-07 06:13] LABS: CALCIUM 8.2 mg/dl (8.5-10.1); CREATININE 0.8 mg/dl (0.60-1.20); POTASSIUM 3.4 mmol/L (3.5-5.1)
[2018-05-07 08:00] VITALS: BP 162/91; PULSE 106; TEMP 36.8; O2SAT 95
[2018-05-07] MEDS: FERROUS SULFATE 325 MG TAB PO SCH ×2 (08:15→16:42)
[2018-05-07] MEDS: RANITIDINE HCL 150 MG TAB PO SCH (08:15)
[2018-05-07] MEDS: METOPROLOL SUCC 50MG EXT REL TAB PO SCH (08:16)
[2018-05-07] MEDS: DILTIAZEM HCL 120 MG EXT REL CAP PO SCH (08:16)
[2018-05-07] MEDS: CYANOCOBALAMIN 500 MCG TAB (VIT B-12) PO SCH (08:16)
[2018-05-07] MEDS ORDERED: POTASSIUM CHLORIDE 20 MEQ TABCR PO STA (08:23)
[2018-05-07 08:30] VITALS: O2SAT 95
[2018-05-07] MEDS: INSULIN ASPART 100 UNITS/ML 3 ML PEN SC SCH ×4 (08:52→21:54)
[2018-05-07] MEDS: SODIUM CHLORIDE 0.9% 1000ML 1,000 ML IV SCH (09:20)
[2018-05-07 11:11] VITALS: PULSE 115; O2SAT 97
[2018-05-07] MEDS ORDERED: PHARMACY GLYCEMIC MGMT CONSULT PRN (12:26)
--- NOTE | 2018-05-07 13:31 | Pharmacy Progress Note ---
Glycemic Control Intl Consult Date of Service May 07, 2018. Scope Glycemic Pharmacist consulted by Dr Tabares on 05/07/18 for glycemic control and to write orders per [facility] inpatient glycemic control protocol Objective Weight (Kilograms): 54.900 Accuchecks BSG (last 24hrs): Test 05/06/18 16:52 05/06/18 20:11 05/07/18 05:26 05/07/18 08:08 Bedside Glucose 210 mg/dl (70-90) 174 mg/dl (70-90) 109 mg/dl (70-90) Random Glucose 78 mg/dl (70-99) Test 05/07/18 11:24 Bedside Glucose 350 mg/dl (70-90) Laboratory Data (last 24hrs) Test 05/07/18 05:26 Anion Gap 12.0 mmol/L BUN/Creatinine Ratio 15.4 Blood Urea Nitrogen 12 mg/dl Creatinine 0.80 mg/dl Potassium Level 3.4 mmol/L Sodium Level 140 mmol/L White Blood Count 6.98 K/uL Recent Pertinent Medications Outpatient Anti-diabetic Regimen: * Lantus 8 units SQ qPM + Novolog with meals * A1c = 9.3 % 04/24/18 The patient is currently receiving: * Basal insulin: Lantus 8 units every 24 hours * Correctional Insulin: Novolog Correction per scale ACHS Goal Range: Low 120 mg/dL - High 160 mg/dL Correction Factor: 30 mg/dL/unit * Prandial insulin: Per carb ratio of 1 unit per 10 grams CHO consumed Assessment & Plan ASSESSMENT: * 88 yr old T2DM male admitted with altered mental status, metabolic encephalopathy. * A1c indicates poor outpatient glycemic control. * Fasting BSG is at goal on patients home dose of Lantus. Will continue same for now. * Post prandial BSGs are elevated. Will tighten Novolog correction factor and carb ratio. * A IV bolus of regular insulin will be given for severe hyperglycemia, BSG 350 mg/dL at lunch. PLAN FOR INPATIENT GLYCEMIC CONTROL: * Regular 5 unit IV bolus x 1 * Continuing Lantus 8 units SQ qPM * Tighten correction factor to 25 mg/dl/unit * Tighten carb ratio to 1 unit per 8 grams CHO consumed * Continuing goal range to Low 120 mg/dL - High 160 mg/dL Thank you.
[2018-05-07] MEDS ORDERED: INSULIN HUMAN REGULAR PER UNIT 5 UNITS in SYRINGE 4.95 ML IV ONE (14:30)
[2018-05-07] MEDS ORDERED: POTASSIUM CHLORIDE 10 MEQ TABCR PO ONE (14:30)
[2018-05-07 14:42] VITALS: BP 145/75; PULSE 79; TEMP 36.7; O2SAT 98
[2018-05-07] MEDS: CEFTRIAXONE SOD INJ 1 GM in DEXTROSE 5% ADD-VANTAGE 50ML 50 ML IV SCH (16:41)
[2018-05-07] MEDS: RIVAROXABAN TAB 15 MG TAB PO SCH (16:41)
[2018-05-07] MEDS: INSULIN GLARGINE SOLOSTAR 100 UNITS/ML 3 ML PEN SC SCH (21:53)
--- NOTE | 2018-05-07 22:17 | Progress Note ---
Subjective Date of Service: May 07, 2018. Subjective Pt evaluation today including: conversation w/ patient, physical exam Patient was examined iat 10 am. Patient reports feeling well and has no new complaints. However when I called daughter at 5pm, she stated that patient was confused. Problem List Medical Problems: (1) Abnormal chest xray Status: Acute (2) Anticoagulated Status: Acute (3) Back pain Status: Acute (4) Confusion Status: Acute (5) Dehydration Status: Acute (6) Depressed Status: Acute (7) DKA (diabetic ketoacidoses) Status: Acute (8) Epistaxis Status: Acute (9) Hip fracture Status: Acute (10) Hyperglycemia Status: Acute (11) Nosebleed Status: Acute (12) Pneumonia Status: Acute (13) Upper back pain Status: Acute (14) UTI (urinary tract infection) Status: Acute Review of Systems Constitutional: No fever, No chills, No fatigue Respiratory: No cough, No shortness of breath Cardiovascular: No chest pain Abdomen: No pain, No nausea, No vomiting, No diarrhea, No constipation Musculoskeletal: No swelling, No calf pain Female : No dysuria Heme: No abnormal bleeding/bruising Objective Vital Signs Date Time Temp Pulse Resp B/P (MAP) Pulse Ox O2 Delivery O2 Flow Rate FiO2 05/07/18 16:30 Room Air 05/07/18 14:42 36.7 79 20 145/75 (98) 98 Room Air 05/07/18 11:11 115 97 05/07/18 08:30 95 Room Air 05/07/18 08:00 36.8 106 18 162/91 (114) 95 Room Air 05/07/18 00:10 Room Air 05/06/18 23:03 36.7 93 20 164/83 (110) 94 Room Air Physical Exam Comments: General Appearance: WD/WN, no apparent distress Eyes: sclerae normal Neck: supple, no JVD, trachea midline Respiratory/Chest: lungs clear, no respiratory distress, no accessory muscle use Cardiovascular: + irregularly irregular Abdomen: normal bowel sounds, non tender, soft Neurologic/Psychiatric: alert Skin: normal color, warm/dry Laboratory Results Last 24 Hours Test 05/07/18 05:26 05/07/18 08:08 05/07/18 11:24 05/07/18 16:46 White Blood Count 6.98 K/uL Red Blood Count 4.09 M/uL Hemoglobin 9.5 g/dL Hematocrit 31.0 % Mean Corpuscular Volume 75.8 fL Mean Corpuscular Hemoglobin 23.2 pg Mean Corpuscular Hemoglobin Concent 30.6 g/dl RDW Standard Deviation 45.1 fL RDW Coefficient of Variation 16.4 % Platelet Count 232 K/uL Mean Platelet Volume 9.5 fL Sodium Level 140 mmol/L Potassium Level 3.4 mmol/L Chloride Level 108 mmol/L Carbon Dioxide Level 21 mmol/L Anion Gap 12.0 mmol/L Blood Urea Nitrogen 12 mg/dl Creatinine 0.80 mg/dl Est Creatinine Clear Calc Drug Dose 40.2 ml/min Estimated GFR () 76.3 Estimated GFR (Non- 65.8 BUN/Creatinine Ratio 15.4 Random Glucose 78 mg/dl Calcium Level 8.2 mg/dl Magnesium Level 1.7 mg/dl Bedside Glucose 109 mg/dl 350 mg/dl 58 mg/dl Test 05/07/18 16:49 05/07/18 17:14 05/07/18 21:05 Bedside Glucose 56 mg/dl 104 mg/dl 286 mg/dl Assessment and Plan 88 y/o F Hx DM, HTN, AF, hypothyroidism. Presents with confusion and hallucinations. Her daughter noted that she was hallucinating her who had 4 years ago. She brought her to an urgent care center and was directed to the ER. She was not able to produce a urine sample at the urgent care center. Initial labs obtained in the hospital demonstrate ARF, hyponatremia, hyperglycemia and anemia. A UA is (+). Metabolic Encephalopathy 2/2 Dehydration/Hyponatremia/Urinary Tract Infection: IMPROVING - Hyponatremia resolved with IVF and will continue gentle hydration given additional hyperglycemia - Rocephin 1 g IV daily awaiting UCx; NSS at 75 mL/hr -Culture showed coag neg staph -will titrate to oral tomorrow Patient still becomes intemrittently confused. Exlained to family the waxing and waning effect of delirium. T2DM with Hyperglycemia: A1c 9.3 - Lantus 8 units SC daily and SSI Chronic Microcytic Anemia: - Stable but slightly reduced likely from dilution - iron level low and awaiting FOBT - Can start iron supplementation Persistent Atrial Fibrillation: - Diltiazem 120 mg daily and Toprol XL 100 mg daily; Xarelto 15 mg daily Hypothyroidism: - Synthroid 125 mcg daily DVT Prophylaxis: Xarelto Code Status: FULL RESUSCITATION Disposition: will likely need home health as patient lives by herslef.- patient does live alone with good family support. - Discussed with daughter that patient may D/C tomorrow o. Daughter feels confident the patient will do well at home as she does have good family support as long as she is back to baseline,but due to her confusion, she feels home health might be of benefit. Continued [facility] stay due to: multiple IV medications needed Discharge planning: home
[2018-05-07 23:36] VITALS: BP 157/90; PULSE 94; TEMP 36.6; O2SAT 97
[2018-05-08] MEDS ORDERED: INSULIN ASPART 100 UNITS/ML 3 ML PEN SC SCH (03:15)
[2018-05-08 05:54] LABS: HEMATOCRIT 33.8 % (37-47); HEMOGLOBIN 10.2 g/dL (12.0-16.0); MEAN CELL VOLUME 76.1 fL (80-100); MEAN CORPUSCULAR HGB CONC 30.2 g/dl (32-36); PLATELET COUNT 251 K/uL (130-400); RED CELL DISTRIBUTION WIDTH CV 16.7 % (11.5-14.5); RED CELL DISTRIBUTION WIDTH SD 46.4 fL (36.4-46.3); WHITE BLOOD COUNT 8.28 K/uL (4.8-10.8)
[2018-05-08] MEDS: LEVOTHYROXINE 125 MCG TAB PO SCH (05:58)
[2018-05-08 06:30] LABS: CALCIUM 8.6 mg/dl (8.5-10.1); CREATININE 1.01 mg/dl (0.60-1.20); POTASSIUM 3.9 mmol/L (3.5-5.1)
[2018-05-08 07:26] VITALS: BP 156/85; PULSE 104; TEMP 36.3; O2SAT 96
[2018-05-08] MEDS ORDERED: MAGNESIUM OXIDE 400 MG TAB PO SCH (08:00)
[2018-05-08] MEDS ORDERED: NITROFURANTOIN MONOHYDRATE 100 MG CAP PO SCH (08:00)
[2018-05-08] MEDS: INSULIN ASPART 100 UNITS/ML 3 ML PEN SC SCH ×2 (08:39→13:25)
[2018-05-08] MEDS: DILTIAZEM HCL 120 MG EXT REL CAP PO SCH (08:41)
[2018-05-08] MEDS: CYANOCOBALAMIN 500 MCG TAB (VIT B-12) PO SCH (08:41)
[2018-05-08] MEDS: METOPROLOL SUCC 50MG EXT REL TAB PO SCH (08:41)
[2018-05-08] MEDS: RANITIDINE HCL 150 MG TAB PO SCH (08:42)
[2018-05-08] MEDS: FERROUS SULFATE 325 MG TAB PO SCH (08:42)
[2018-05-08] MEDS ORDERED: INSULIN GLARGINE SOLOSTAR 100 UNITS/ML 3 ML PEN SC SCH (10:00)
[2018-05-08] MEDS ORDERED: MCRB100 PO (11:11)
--- NOTE | 2018-05-08 11:16 | Discharge Instructions ---
Discharge Instructions Date of Service May 08, 2018. Admission Reason for Admission: Ams, Dehydration Discharge Discharge Diagnosis / Problem: Altered mental status Discharge Goals Goal(s): Decrease discomfort, Improve function Activity Recommendations Activity Limitations: resume your previous activity . Instructions / Follow-Up Instructions / Follow-Up Patient mental status has improved during hospital stay. Patient will continue with antibiotics for 4 more days to complete 7 days total. Current Hospital Diet Patient's current hospital diet: Diabetes Type 2 Diet Discharge Diet Recommended Diet: Diabetes Type 2 Diet Pending Studies Studies pending at discharge: no Laboratory Results Hemoglobin A1c Test 04/24/18 08:55 Range/Units Estimated Average Glucose 220 mg/dl Hemoglobin A1c 9.3 H 4.5-5.6 % Lipid Panel Test 04/24/18 08:55 Range/Units Triglycerides Level 112 0-150 mg/dl Cholesterol Level 168 0-200 mg/dl HDL Cholesterol 42 mg/dl Cholesterol/HDL Ratio 4.0 LDL Cholesterol, Calculated 104 mg/dl Medical Emergencies . Who to Call and When: Medical Emergencies: If at any time you feel your situation is an emergency, please call 911 immediately. . Non-Emergent Contact Non-Emergency issues call your: Primary Care Provider Call Non-Emergent contact if: you have any medication questions . . "Provider Documentation" section prepared by Arden Tabares. .
--- NOTE | 2018-05-08 11:17 | Discharge Summary ---
Discharge Summary Date of Service May 08, 2018. Discharge Summary Admission Date: May 05, 2018 at 18:28 Discharge Date: May 08, 2018 Discharge Disposition: Home with services Principal Diagnosis: Metabolic Encephalopathy 2/2 Dehydration/Hyponatremia/ Urinary Tract Infecti Immunizations: Have You Had Influenza Vaccine: Yes History of Tetanus Vaccine?: Unknown History of Pneumococcal: Unknown History of Hepatitis B Vaccine: Unknown Medication Reconciliation New Medications: Nitrofurantoin Monohyd Macrocr (Nitrofurantoin Monohydrat) 100 Mg Cap 100 MG PO BID for 4 Days, #8 CAP 0 Refills Continued Medications: Cranberry (Vaccinium Macrocarp (Cranberry) 500 Mg Cap 500 MG PO DAILY Cyanocobalamin (Vitamin B12) 1,000 Mcg Tab 1000 MCG PO DAILY Diltiazem Hcl Ext Rel (Tiazac) 120 Mg Capcr 120 MG PO QAM Insulin Aspart (Novolog Flexpen) 100 Units/Ml Inj 1 DOSE SC AC COVERAGE DIRECTED BY SLIDING SCALE Insulin Glargine (Lantus Solostar) 100 Unit/Ml Inj 8 UNITS SC QPM, PEN Levothyroxine Sodium (Levothyroxine Sodium) 125 Mcg Tab 125 MCG PO DAILY, TAB Metoprolol Succinate (Metoprolol Succinate ER) 100 Mg Tabcr 100 MG PO DAILY Multiple Vitamins W/ Minerals (Preservision Areds 2) 1 Cap Cap 1 CAP PO BID Ranitidine HCl (Ranitidine HCl) 150 Mg Tab 150 MG PO BID Rivaroxaban (Xarelto) 20 Mg Tab 20 MG PO QAM Discharge Exam Review of Systems Constitutional: No fever, No chills, No fatigue Respiratory: No cough, No shortness of breath Cardiovascular: No chest pain Abdomen: No pain, No nausea, No vomiting, No diarrhea, No constipation Musculoskeletal: No swelling, No calf pain Female : No dysuria Heme: No abnormal bleeding/bruising Physical Exam Comments: General Appearance: WD/WN, no apparent distress Eyes: sclerae normal Neck: supple, no JVD, trachea midline Respiratory/Chest: lungs clear, no respiratory distress, no accessory muscle use Cardiovascular: + irregularly irregular Abdomen: normal bowel sounds, non tender, soft Neurologic/Psychiatric: alert Skin: normal color, warm/dry Hospital Course 88 y/o F Hx DM, HTN, AF, hypothyroidism. Presents with confusion and hallucinations. Her daughter noted that she was hallucinating her who had 4 years ago. She brought her to an urgent care center and was directed to the ER. She was not able to produce a urine sample at the urgent care center. Initial labs obtained in the hospital demonstrate ARF, hyponatremia, hyperglycemia and anemia. A UA is (+). Metabolic Encephalopathy 2/2 Dehydration/Hyponatremia/Urinary Tract Infection: Improve - Hyponatremia resolved with IVF and will continue gentle hydration given additional hyperglycemia - Rocephin 1 g IV daily for 3 days; - NSS at 75 mL/hr was given -Culture showed coag neg staph (pansensitive) -Titrated to nitrofurantoin for 4 more days -Patient today is no longer confused but explained to family the waxing and waning effect of delirium. T2DM with Hyperglycemia: A1c 9.3 - Lantus 8 units SC daily and SSI Chronic Microcytic Anemia: - Stable but slightly reduced likely from dilution - iron level low and awaiting FOBT - Can start iron supplementation Persistent Atrial Fibrillation: - Diltiazem 120 mg daily and Toprol XL 100 mg daily; Xarelto 15 mg daily Hypothyroidism: - Synthroid 125 mcg daily DVT Prophylaxis: Xarelto Code Status: FULL RESUSCITATION Disposition: will likely need home health as patient lives by herslef.- patient does live alone with good family support. - Updated daughter Total Time Spent: Greater than 30 minutes This includes examination of the patient, discharge planning, medication reconciliation, and communication with other providers. Discharge Instructions Please refer to the electronic Patient Visit Report (Discharge Instructions) for additional information. Follow-Up Patient mental status has improved during hospital stay. Patient will continue with antibiotics for 4 more days to complete 7 days total. Additional Copies To Liam Benavides D.O.
[2018-05-08 12:33] VITALS: BP 156/85; PULSE 104; TEMP 36.3; O2SAT 96
[2018-05-08 13:37] VITALS: Ht 160 cm; Wt 54.9 kg
== END 2018-05-08 13:56 | disposition home health service (06) | DRG 682 ==
LOC: C.EDB 14:29 → C.4E 18:28 → ENRESERV 19:34
PROVIDERS: ADMIT Internal Medicine; ATTEND Internal Medicine Sports Medicine
DX: N17.9 Acute kidney failure, unspecified (principal); I48.1 Persistent atrial fibrillation; G93.41 Metabolic encephalopathy; N39.0 Urinary tract infection, site not specified; E87.1 Hypo-osmolality and hyponatremia; E11.65 Type 2 diabetes mellitus with hyperglycemia; I10 Essential (primary) hypertension; H35.30 Unspecified macular degeneration; Z83.3 Family history of diabetes mellitus; Z87.891 Personal history of nicotine dependence; F32.9 Major depressive disorder, single episode, unspecified; E86.0 Dehydration; B95.8 Unspecified staphylococcus as the cause of diseases classified elsewhere; D64.9 Anemia, unspecified; N81.10 Cystocele, unspecified; E03.9 Hypothyroidism, unspecified; Z79.01 Long term (current) use of anticoagulants

== ENCOUNTER 2018-09-03 13:39 | Inpatient (IN) ==
--- NOTE | 2018-09-03 14:57 | XRay Report ---
XR chest 1V portable HISTORY: 88 years-old Female SOB acute shortness of breath COMPARISON: Chest radiograph 07/02/2018, chest CT 05/04/2018 TECHNIQUE: Portable AP view of the chest FINDINGS: Cardiac silhouette is mildly enlarged. Severe emphysema with chronic interstitial coarsening. Calcifi cation the thoracic aortic arch. Trace pleural effusions. Mild pulmonary vascular congestion without overt pulmonary edema. No pneumothorax. Trace fluid is seen tracking along the minor fissure. Degenerative changes of the shoulders and spine. IMPRESSION: 1. Cardiomegaly with pulmonary vascular congestion. 2. Trace bilateral pleural effusions. 3. Advanced emphysema with chronic interstitial coarsening. The above report was generated using voice recognition software. It may contain grammatical, syntax o r spelling errors. Electronically signed by: Alex Mix M.D. 09/03/2018 2:55 PM
--- NOTE | 2018-09-03 15:19 | Emergency Department Note ---
Entered by Keely Travis acting as a scribe for Byron Moreira DO History of Present Illness General Chief complaint: Referred by Doctor Stated complaint: EDEMA, SOB Source: patient Limitations: altered mental status History of Present Illness Provider complaint: referred by a doctor Maximum Pain Intensity: 7 Exacerbated By: + movement (walking) and + rest (laying flat on back) Associated symptoms: + shortness of breath and + other (+swelling in left arm and top of hand,+pain in left arm); no chest pain The patient is a 88 year old female who presents to the Emergency Room by doctor referral. The patient states that she has had swelling in her arm and in the top of her hand that she states started a couple days ago. The patient states that she has shortness of breath when she walks and is laying flat. The patient states that she has arm pain but denies any chest pain. The patient states that she went to the [facility] urgent care center. The patient denies a history of a irregular heart beat. The patient's HPI is limited due to an altered mental status. Home Medications Home Medications Medication Instructions Recorded Confirmed Type calcium carbonate-vitamin D3 1 tab PO BID 05/16/18 09/03/18 History [Caltrate 600 + D] cholecalciferol (vitamin D3) 2,000 unit PO DAILY 05/16/18 09/03/18 History [Vitamin D3] cranberry extract 500 mg PO DAILY 05/16/18 09/03/18 History cyanocobalamin (vitamin B-12) 1,000 mcg PO DAILY 05/16/18 09/03/18 History [Vitamin B-12] levothyroxine 125 mcg PO DAILY 05/16/18 09/03/18 History ranitidine HCl 150 mg PO BID 05/16/18 09/03/18 History rivaroxaban [Xarelto] 20 mg PO DAILY 05/16/18 09/03/18 History vit C,S-Rb-qxyhv-lutein-zeaxan 1 tab PO BID 05/16/18 09/03/18 History [PreserVision AREDS-2] acetaminophen 1,000 mg PO BID 09/03/18 09/03/18 History acetaminophen 650 mg PO Q6H PRN MDD 3GM/24HR 09/03/18 09/03/18 History amlodipine 5 mg PO DAILY 09/03/18 09/03/18 History dextromethorphan-guaifenesin [Safe 10 ml PO Q4H PRN 09/03/18 09/03/18 History Tussin DM] glucagon (human recombinant) 1 ml IM UD PRN 09/03/18 09/03/18 History [Glucagon Emergency Kit (human)] insulin NPH isoph U-100 human 10 unit SUBCUT DAILY 09/03/18 09/03/18 History [Humulin N NPH Insulin KwikPen] insulin aspart U-100 [Novolog 1 sliding scale dose SUBCUT UD 09/03/18 09/03/18 History U-100 Insulin aspart] insulin glargine [Lantus Solostar 20 unit SUBCUT DAILY 09/03/18 09/03/18 History U-100 Insulin] metoprolol succinate 150 mg PO DAILY 09/03/18 09/03/18 History sodium chloride [Saline Mist] 2 spray INTRANASAL DAILY PRN 09/03/18 09/03/18 History Allergies Allergy/AdvReac Type Severity Reaction Status Date / Time erythromycin base Allergy Unknown Unverified 09/03/18 16:49 Past Med/Surg History Medical History Diarrhea Diabetes (Chronic) Macular degeneration (Chronic) HTN (hypertension) (Chronic) Abnormal EKG (Acute) DKA (diabetic ketoacidosis) (Acute) Epistaxis (Acute) Fever (Acute) Microcytic anemia (Acute) Nondisplaced fracture of right femur SIRS (systemic inflammatory response syndrome) (Acute) Symptomatic anemia (Acute) Acute dehydration (Acute) Acute hyperglycemia (Acute) Acute thoracic back pain (Acute) Atrial fibrillation (Chronic) Sepsis Afib Back pain Hypertension Hypothyroidism Diabetes mellitus type 2 with complications Surgical History Status post hysterectomy Social History Current Living Situation: Personal Care Facility Current Living Situation Comment: Pt currently lives alone, with family checking in on her and caregiver. Feels Safe at Home: Yes Safety Concerns: Feels Safe At This Time Smoking Status: Never smoker Hx Alcohol Use: No Hx Substance Use: No Beliefs That Will Affect Care: None Communication Ability: Effective Review of Systems ROS is limited due to the patient's altered mental status. Physical Exam Vital Signs Vital Signs - 24 hr 09/03/18 17:34 09/03/18 19:36 09/03/18 20:40 Temperature 36.5 C Temperature Source Oral Pulse Rate [Right Finger] 113 H 103 H 105 H Pulse Rhythm [Right Finger] Regular Pulse Strength [Right Finger] Normal Respiratory Rate 20 18 19 Respiratory Effort / Characteristics Non-Labored Spontaneous Non-Labored Non-Labored Spontaneous Respiratory Depth Normal Normal Normal Respiratory Pattern Regular Regular Blood Pressure [Right Arm] 147/95 H 111/71 141/91 H Blood Pressure Mean [Right Arm] 112 84 107 Blood Pressure Position [Right Arm] Lying Pulse Oximetry 97 92 93 Oxygen Delivery Method Room Air Room Air Room Air Oxygen Flow Rate 09/03/18 23:13 09/04/18 03:13 09/04/18 07:41 Temperature 36.4 C L 36.5 C 36.8 C Temperature Source Oral Oral Oral Pulse Rate [Right Finger] 100 H 115 H 133 H Pulse Rhythm [Right Finger] Regular Pulse Strength [Right Finger] Normal Respiratory Rate 18 18 27 H Respiratory Effort / Characteristics Non-Labored Respiratory Depth Deep Respiratory Pattern Blood Pressure [Right Arm] 176/108 H 109/72 137/59 L Blood Pressure Mean [Right Arm] 130 84 85 Blood Pressure Position [Right Arm] Lying Lying Sitting Pulse Oximetry 95 91 94 Oxygen Delivery Method Room Air Room Air Oxygen Flow Rate 09/04/18 11:45 09/04/18 16:10 Temperature 36.8 C 36.6 C Temperature Source Oral Oral Pulse Rate [Right Finger] 111 H 102 H Pulse Rhythm [Right Finger] Regular Pulse Strength [Right Finger] Normal Respiratory Rate 22 21 Respiratory Effort / Characteristics Non-Labored Splinting (from pain) Respiratory Depth Normal Respiratory Pattern Blood Pressure [Right Arm] 168/98 H 127/83 Blood Pressure Mean [Right Arm] 121 97 Blood Pressure Position [Right Arm] Left Lateral Lying Pulse Oximetry 96 100 Oxygen Delivery Method Room Air CPAP Nasal Cannula Oxygen Flow Rate 2.0 GENERAL: The patient is somewhat slow to respond to questions but appears awake. She does not appear to be in pain or uncomfortable. EYES: The conjunctivae are clear. The pupils are round and reactive. EARS, NOSE, MOUTH AND THROAT: The nose is without any evidence of any deformity. Mucous membranes are moist tongue is midline NECK: The neck is nontender and supple. RESPIRATORY: Normal respiratory effort is noted there is no evidence of wheezing rhonchi or rales CARDIOVASCULAR: Irregular rhythm was noted to auscultation. No definite murmur was noted. GASTROINTESTINAL: The abdomen is soft. Bowel sounds are present in all quadrants. Abdomen is nontender MUSCULOSKELETAL/EXTREMITIES: There is no evidence of gross deformity full range of motion is noted in the hips and shoulders SKIN: There is no obvious evidence of any rash. There is pedal edema in both lower extremities left greater than right. There is also edema in the left upper extremity. No erythema or signs of cellulitis were noted. NEUROLOGIC: Patient is awake alert and oriented to person place and situation. The patient follows commands. Strength is symmetric but diminished bilaterally. Course 1451: Past medical records reviewed. The patient was evaluated in room B12, and a complete history and physical examination were performed. 1620: I checked on the patient and updated her on her results. 1813: I spoke with Maura Clark PA-C for [facility] who will evaluate the patient for further hospitalization. Consultations Consultation #1: Maura Clark PA-C for [facility] Time: 18:14 Administered Medications Cyanocobalamin (Vitamin B-12) 1,000 mcg PO DAILY SAVANNAH Stop: 10/04/18 08:59 Last Admin: 09/04/18 07:53 Dose: 1,000 mcg Insulin Aspart (Novolog Flexpen) 0 units SC ACHS SAVANNAH Stop: 10/03/18 20:59 Last Admin: 09/04/18 12:35 Dose: 10 units Admin: 09/04/18 09:44 Dose: 9 units Admin: 09/03/18 21:46 Dose: 4 units Levothyroxine Sodium (Synthroid) 125 mcg PO DAILYBB SAVANNAH Stop: 10/04/18 06:29 Last Admin: 09/04/18 06:10 Dose: 125 mcg Potassium Chloride (Klor-Con M10) 10 meq PO BID SAVANNAH Stop: 10/03/18 20:59 Last Admin: 09/04/18 08:36 Dose: 10 meq Admin: 09/03/18 21:39 Dose: 10 meq Ranitidine HCl (Zantac) 150 mg PO BID SAVANNAH Stop: 10/03/18 20:59 Last Admin: 09/04/18 10:46 Dose: 150 mg Admin: 09/03/18 21:40 Dose: 150 mg Rivaroxaban (Xarelto) 20 mg PO DAILY SAVANNAH Stop: 10/04/18 08:59 Last Admin: 09/04/18 09:37 Dose: 20 mg Discontinued Medications Acetaminophen (Tylenol) Confirm Administered Dose 1,000 mg .ROUTE .STK-MED ONE Stop: 09/03/18 17:56 Last Admin: 09/03/18 17:57 Dose: 1,000 mg Amlodipine Besylate (Norvasc) 5 mg PO DAILY SAVANNAH Stop: 10/04/18 08:59 Last Admin: 09/04/18 07:53 Dose: 5 mg Ceftriaxone Sodium (Rocephin) 1,000 mg in 50 mls @ 100 mls/hr IV NOW STA Stop: 09/03/18 18:02 Last Infusion: 09/03/18 20:27 Dose: 0 mls/hr Admin: 09/03/18 20:00 Dose: 100 mls/hr Furosemide 20 mg/ Syringe 2 mls @ 4 mls/min IV BID17 SAVANNAH Stop: 10/03/18 20:59 Last Admin: 09/04/18 07:52 Dose: 4 mls/min Admin: 09/03/18 21:40 Dose: 4 mls/min Vancomycin HCl 1,500 mg/ (Sodium Chloride) 530 mls @ 200 mls/hr IV NOW ONE Stop: 09/03/18 23:53 Last Infusion: 09/04/18 00:03 Dose: 0 mls/hr Admin: 09/03/18 21:40 Dose: 200 mls/hr Magnesium Sulfate/Dextrose (Magnesium Sulfate / D5w) 1 gm in 100 mls @ 100 mls/ hr IV ONE ONE Stop: 09/04/18 08:48 Last Infusion: 09/04/18 10:01 Dose: 0 mls/hr Admin: 09/04/18 08:36 Dose: 100 mls/hr Vancomycin HCl 1,000 mg/ (Sodium Chloride) 270 mls @ 125 mls/hr IV TODAY@1330 SAVANNAH Stop: 09/04/18 15:40 Last Infusion: 09/04/18 14:30 Dose: 0 mls/hr Admin: 09/04/18 13:56 Dose: 125 mls/hr Insulin Glargine (Lantus Solostar Pen) 20 units SQ DAILY SAVANNAH Stop: 10/04/18 08:59 Last Admin: 09/04/18 09:44 Dose: 20 units Insulin Glargine (Lantus Solostar Pen) 10 units SQ NOW ONE Stop: 09/03/18 21:16 Last Admin: 09/03/18 21:46 Dose: 10 units Insulin Glargine (Lantus) 8 units SC ONE ONE Stop: 09/04/18 11:57 Last Admin: 09/04/18 12:30 Dose: 8 units Metoprolol Succinate (Toprol Xl) 150 mg PO DAILY SAVANNAH Stop: 10/04/18 08:59 Last Admin: 09/04/18 07:52 Dose: 150 mg Metoprolol Succinate (Toprol Xl) 25 mg PO NOW STA Stop: 09/04/18 11:19 Last Admin: 09/04/18 11:59 Dose: 25 mg Medical Decision Making Medical Records Attestation: I reviewed the patient's medical records. Home Medications Current Medication List: was personally reviewed by me Laboratory Data Attestation: I reviewed the patient's lab results. Result diagrams: 09/04/18 06:05 09/04/18 06:05 Lab Results 09/03/18 09/03/18 09/03/18 Range/Units 15:48 15:48 15:48 WBC 18.24 H (4.8-10.8) K/uL RBC 3.91 L (4.2-5.4) M/uL Hgb 8.4 L (12.0-16.0) g/dL Hct 29.0 L (37-47) % MCV 74.2 L (80-100) fL MCH 21.5 L (25-34) pg MCHC 29.0 L (32-36) g/dL RDW Std Deviation 51.3 H (36.4-46.3) fL RDW Coeff of Chris 19.1 H (11.5-14.5) % Plt Count 259 (130-400) K/uL MPV 9.7 (7.4-10.4) fL Immature Gran % (Auto) 0.3 % Neut % (Auto) 86.9 % Lymph % (Auto) 5.7 % Cecil % (Auto) 6.8 % Eos % (Auto) 0.1 % Baso % (Auto) 0.2 % Immature Gran # (Auto) 0.05 H (0.00-0.02) K/uL Neut # (Auto) 15.86 H (1.4-6.5) K/uL Lymph # (Auto) 1.04 L (1.2-3.4) K/uL Cecil # (Auto) 1.24 H (0.11-0.59) K/uL Eos # (Auto) 0.02 (0-0.5) K/uL Baso # (Auto) 0.03 (0-0.2) K/uL Hypersegmented Neuts Hypochromasia Present PT 14.5 H (9.0-12.0) Seconds INR 1.5 H (0.9-1.1) APTT 31.5 H (21.0-31.0) Seconds PTT Ratio 1.2 Sodium 137 (136-145) mmol/L Potassium 3.9 (3.5-5.1) mmol/L Chloride 105 (98-107) mmol/L Carbon Dioxide 24 (21-32) mmol/L Anion Gap 8.0 (3-11) BUN 24 H (7-18) mg/dl Creatinine 1.02 (0.6-1.2) mg/dl Est Cr Clr Drug Dosing 31.5 ml/min Est GFR ( Amer) 56.9 Est GFR (Non-Af Amer) 49.1 BUN/Creatinine Ratio 23.7 H (10-20) Glucose 237 H (70-99) mg/dl POC Glucose (70-99) Calcium 8.8 (8.5-10.1) mg/dl Magnesium 1.9 (1.8-2.4) mg/dl Iron (35-150) mcg/dl TIBC (250-450) mcg/dl Transferrin (200-360) mg/dl Transferrin % Sat (15-50) % Ferritin (8-388) ng/ml Total Bilirubin 1.0 (0.1-1) mg/dl AST 33 (15-37) U/L ALT 30 (12-78) U/L Alkaline Phosphatase 220 H (45-117) U/L Troponin I (0-0.045) ng/ml Total Protein 7.1 (6.4-8.2) gm/dl Albumin 3.5 (3.4-5.0) gm/dl Globulin 3.6 (2.5-4.0) gm/dl Albumin/Globulin Ratio 1.0 (0.9-2) Vitamin B12 (211-911) pg/ml Folate (>5.38) ng/ml TSH 6.310 H (0.300-4.500) uIu/ml Free T4 1.60 (0.8-1.6) ng/dl Random Vancomycin mcg/ml 09/03/18 09/03/18 09/04/18 Range/Units 15:48 21:41 06:05 WBC 19.01 H (4.8-10.8) K/uL RBC 3.93 L (4.2-5.4) M/uL Hgb 8.5 L (12.0-16.0) g/dL Hct 28.9 L (37-47) % MCV 73.5 L (80-100) fL MCH 21.6 L (25-34) pg MCHC 29.4 L (32-36) g/dL RDW Std Deviation 51.0 H (36.4-46.3) fL RDW Coeff of Chris 18.8 H (11.5-14.5) % Plt Count 239 (130-400) K/uL MPV 9.4 (7.4-10.4) fL Immature Gran % (Auto) 0.4 % Neut % (Auto) 85.7 % Lymph % (Auto) 5.7 % Cecil % (Auto) 7.9 % Eos % (Auto) 0.1 % Baso % (Auto) 0.2 % Immature Gran # (Auto) 0.07 H (0.00-0.02) K/uL Neut # (Auto) 16.30 H (1.4-6.5) K/uL Lymph # (Auto) 1.09 L (1.2-3.4) K/uL Cecil # (Auto) 1.50 H (0.11-0.59) K/uL Eos # (Auto) 0.02 (0-0.5) K/uL Baso # (Auto) 0.03 (0-0.2) K/uL Hypersegmented Neuts 1+ Hypochromasia Present PT (9.0-12.0) Seconds INR (0.9-1.1) APTT (21.0-31.0) Seconds PTT Ratio Sodium (136-145) mmol/L Potassium (3.5-5.1) mmol/L Chloride (98-107) mmol/L Carbon Dioxide (21-32) mmol/L Anion Gap (3-11) BUN (7-18) mg/dl Creatinine (0.6-1.2) mg/dl Est Cr Clr Drug Dosing ml/min Est GFR ( Amer) Est GFR (Non-Af Amer) BUN/Creatinine Ratio (10-20) Glucose (70-99) mg/dl POC Glucose 303 H (70-99) Calcium (8.5-10.1) mg/dl Magnesium (1.8-2.4) mg/dl Iron (35-150) mcg/dl TIBC (250-450) mcg/dl Transferrin (200-360) mg/dl Transferrin % Sat (15-50) % Ferritin (8-388) ng/ml Total Bilirubin (0.1-1) mg/dl AST (15-37) U/L ALT (12-78) U/L Alkaline Phosphatase (45-117) U/L Troponin I < 0.015 (0-0.045) ng/ml Total Protein (6.4-8.2) gm/dl Albumin (3.4-5.0) gm/dl Globulin (2.5-4.0) gm/dl Albumin/Globulin Ratio (0.9-2) Vitamin B12 (211-911) pg/ml Folate (>5.38) ng/ml TSH (0.300-4.500) uIu/ml Free T4 (0.8-1.6) ng/dl Random Vancomycin mcg/ml 09/04/18 09/04/18 09/04/18 Range/Units 06:05 08:24 08:24 WBC (4.8-10.8) K/uL RBC (4.2-5.4) M/uL Hgb (12.0-16.0) g/dL Hct (37-47) % MCV (80-100) fL MCH (25-34) pg MCHC (32-36) g/dL RDW Std Deviation (36.4-46.3) fL RDW Coeff of Chris (11.5-14.5) % Plt Count (130-400) K/uL MPV (7.4-10.4) fL Immature Gran % (Auto) % Neut % (Auto) % Lymph % (Auto) % Cecil % (Auto) % Eos % (Auto) % Baso % (Auto) % Immature Gran # (Auto) (0.00-0.02) K/uL Neut # (Auto) (1.4-6.5) K/uL Lymph # (Auto) (1.2-3.4) K/uL Cecil # (Auto) (0.11-0.59) K/uL Eos # (Auto) (0-0.5) K/uL Baso # (Auto) (0-0.2) K/uL Hypersegmented Neuts Hypochromasia PT (9.0-12.0) Seconds INR (0.9-1.1) APTT (21.0-31.0) Seconds PTT Ratio Sodium 136 (136-145) mmol/L Potassium 3.8 (3.5-5.1) mmol/L Chloride 103 (98-107) mmol/L Carbon Dioxide 21 (21-32) mmol/L Anion Gap 13.0 H (3-11) BUN 24 H (7-18) mg/dl Creatinine 1.05 (0.6-1.2) mg/dl Est Cr Clr Drug Dosing 30.6 ml/min Est GFR ( Amer) 54.9 Est GFR (Non-Af Amer) 47.4 BUN/Creatinine Ratio 23.2 H (10-20) Glucose 272 H (70-99) mg/dl POC Glucose (70-99) Calcium 8.9 (8.5-10.1) mg/dl Magnesium 1.9 (1.8-2.4) mg/dl Iron 18 L (35-150) mcg/dl TIBC 392 (250-450) mcg/dl Transferrin 324 (200-360) mg/dl Transferrin % Sat 4 L (15-50) % Ferritin 26.1 (8-388) ng/ml Total Bilirubin (0.1-1) mg/dl AST (15-37) U/L ALT (12-78) U/L Alkaline Phosphatase (45-117) U/L Troponin I < 0.015 (0-0.045) ng/ml Total Protein (6.4-8.2) gm/dl Albumin (3.4-5.0) gm/dl Globulin (2.5-4.0) gm/dl Albumin/Globulin Ratio (0.9-2) Vitamin B12 > 2000 H (211-911) pg/ml Folate 15.88 (>5.38) ng/ml TSH (0.300-4.500) uIu/ml Free T4 (0.8-1.6) ng/dl Random Vancomycin mcg/ml 09/04/18 09/04/18 09/04/18 Range/Units 08:37 08:39 11:22 WBC (4.8-10.8) K/uL RBC (4.2-5.4) M/uL Hgb (12.0-16.0) g/dL Hct (37-47) % MCV (80-100) fL MCH (25-34) pg MCHC (32-36) g/dL RDW Std Deviation (36.4-46.3) fL RDW Coeff of Chris (11.5-14.5) % Plt Count (130-400) K/uL MPV (7.4-10.4) fL Immature Gran % (Auto) % Neut % (Auto) % Lymph % (Auto) % Cecil % (Auto) % Eos % (Auto) % Baso % (Auto) % Immature Gran # (Auto) (0.00-0.02) K/uL Neut # (Auto) (1.4-6.5) K/uL Lymph # (Auto) (1.2-3.4) K/uL Cecil # (Auto) (0.11-0.59) K/uL Eos # (Auto) (0-0.5) K/uL Baso # (Auto) (0-0.2) K/uL Hypersegmented Neuts Hypochromasia PT (9.0-12.0) Seconds INR (0.9-1.1) APTT (21.0-31.0) Seconds PTT Ratio Sodium (136-145) mmol/L Potassium (3.5-5.1) mmol/L Chloride (98-107) mmol/L Carbon Dioxide (21-32) mmol/L Anion Gap (3-11) BUN (7-18) mg/dl Creatinine (0.6-1.2) mg/dl Est Cr Clr Drug Dosing ml/min Est GFR ( Amer) Est GFR (Non-Af Amer) BUN/Creatinine Ratio (10-20) Glucose (70-99) mg/dl POC Glucose 546 H* 335 H (70-99) Calcium (8.5-10.1) mg/dl Magnesium (1.8-2.4) mg/dl Iron (35-150) mcg/dl TIBC (250-450) mcg/dl Transferrin (200-360) mg/dl Transferrin % Sat (15-50) % Ferritin (8-388) ng/ml Total Bilirubin (0.1-1) mg/dl AST (15-37) U/L ALT (12-78) U/L Alkaline Phosphatase (45-117) U/L Troponin I (0-0.045) ng/ml Total Protein (6.4-8.2) gm/dl Albumin (3.4-5.0) gm/dl Globulin (2.5-4.0) gm/dl Albumin/Globulin Ratio (0.9-2) Vitamin B12 (211-911) pg/ml Folate (>5.38) ng/ml TSH (0.300-4.500) uIu/ml Free T4 (0.8-1.6) ng/dl Random Vancomycin 11.7 mcg/ml 09/04/18 09/04/18 Range/Units 11:42 11:43 WBC (4.8-10.8) K/uL RBC (4.2-5.4) M/uL Hgb (12.0-16.0) g/dL Hct (37-47) % MCV (80-100) fL MCH (25-34) pg MCHC (32-36) g/dL RDW Std Deviation (36.4-46.3) fL RDW Coeff of Chirs (11.5-14.5) % Plt Count (130-400) K/uL MPV (7.4-10.4) fL Immature Gran % (Auto) % Neut % (Auto) % Lymph % (Auto) % Cecil % (Auto) % Eos % (Auto) % Baso % (Auto) % Immature Gran # (Auto) (0.00-0.02) K/uL Neut # (Auto) (1.4-6.5) K/uL Lymph # (Auto) (1.2-3.4) K/uL Cecil # (Auto) (0.11-0.59) K/uL Eos # (Auto) (0-0.5) K/uL Baso # (Auto) (0-0.2) K/uL Hypersegmented Neuts Hypochromasia PT (9.0-12.0) Seconds INR (0.9-1.1) APTT (21.0-31.0) Seconds PTT Ratio Sodium (136-145) mmol/L Potassium (3.5-5.1) mmol/L Chloride (98-107) mmol/L Carbon Dioxide (21-32) mmol/L Anion Gap (3-11) BUN (7-18) mg/dl Creatinine (0.6-1.2) mg/dl Est Cr Clr Drug Dosing ml/min Est GFR ( Amer) Est GFR (Non-Af Amer) BUN/Creatinine Ratio (10-20) Glucose (70-99) mg/dl POC Glucose 413 H* 395 H* (70-99) Calcium (8.5-10.1) mg/dl Magnesium (1.8-2.4) mg/dl Iron (35-150) mcg/dl TIBC (250-450) mcg/dl Transferrin (200-360) mg/dl Transferrin % Sat (15-50) % Ferritin (8-388) ng/ml Total Bilirubin (0.1-1) mg/dl AST (15-37) U/L ALT (12-78) U/L Alkaline Phosphatase (45-117) U/L Troponin I (0-0.045) ng/ml Total Protein (6.4-8.2) gm/dl Albumin (3.4-5.0) gm/dl Globulin (2.5-4.0) gm/dl Albumin/Globulin Ratio (0.9-2) Vitamin B12 (211-911) pg/ml Folate (>5.38) ng/ml TSH (0.300-4.500) uIu/ml Free T4 (0.8-1.6) ng/dl Random Vancomycin mcg/ml Imaging Data Radiologist's Impression: Radiology results as stated below per my review and the radiologist's interpretation: XR chest 1V portable HISTORY: 88 years-old Female SOB acute shortness of breath COMPARISON: Chest radiograph 07/02/2018, chest CT 05/04/2018 TECHNIQUE: Portable AP view of the chest FINDINGS: Cardiac silhouette is mildly enlarged. Severe emphysema with chronic interstitial coarsening. Calcification the thoracic aortic arch. Trace pleural effusions. Mild pulmonary vascular congestion without overt pulmonary edema. No pneumothorax. Trace fluid is seen tracking along the minor fissure. Degenerative changes of the shoulders and spine. IMPRESSION: 1. Cardiomegaly with pulmonary vascular congestion. 2. Trace bilateral pleural effusions. 3. Advanced emphysema with chronic interstitial coarsening. The above report was generated using voice recognition software. It may contain grammatical, syntax or spelling errors. Electronically signed by: Alex Mix M.D. 09/03/2018 2:55 PM ECG Data Attestation: I personally reviewed and interpreted this ECG as follows: Indication: SOB/dyspnea Rate (beats per minute): 103 Rhythm: atrial fibrillation Findings: + other (low voltage throughout ) and + ST depression (diffuse); no PVC Comparison ECG Date: from (07/06/18) Change: no significant change Blood Pressure Blood Pressure Findings: Normal blood pressure MDM Narrative The patient is an 88-year-old female who presented to the emergency department for an evaluation of upper extremity swelling. The patient was noted to have shortness of breath and a physical exam consistent with CHF. She was seen at the clinic prior to arrival and was sent to the emergency department for further evaluation. The patient did not appear to have signs of venous thromboembolic disease based on ultrasound. The patient had an elevated white blood cell count and anemia. I do feel overall the patient's condition is consistent with cellulitis. The patient was started on IV antibiotics in the emergency department. I discussed the patient's laboratory and radiographic studies with the family members as well as the patient. I also discussed her case with the on-call [facility] hospitalist. They have agreed to evaluate the patient in the emergency department for further management and disposition. Impression & Plan CHF (congestive heart failure), Anemia, Cellulitis Discharge Plan Visit Data *Final* Discharge Date/Time: 09/03/18 19:54 Chief Complaint: Referred by Doctor Stated Complaint: EDEMA, SOB ED Provider: Byorn Moreira Discharge Problem: CHF (congestive heart failure), Anemia, Cellulitis Patient Disposition: Admitted As Inpatient Discharge Instructions Interventions: ED Discharge Assessment Last Done: 09/03/18 19:54 The scribe's documentation has been prepared under my direction and personally reviewed by me in its entirety. I confirm that the note above accurately reflects all work, treatment, procedures, and medical decision making performed by me.
[2018-09-03 16:03] LABS: INR 1.5 (0.9-1.1); Partial Thromboplastin Ratio 1.2; Partial Thromboplastin Time 31.5 Seconds (21.0-31.0); Prothrombin Time 14.5 Seconds (9.0-12.0)
[2018-09-03 16:17] LABS: Albumin Level 3.5 gm/dl (3.4-5.0); BUN Creatinine Ratio 23.7 (10-20); Calcium 8.8 mg/dl (8.5-10.1); Creatinine Clr Calc Pharmacy 31.5 ml/min; Est GFR (African American) 56.9; Est GFR (Non-African American) 49.1; Hemoglobin 8.4 g/dL (12.0-16.0); Magnesium 1.9 mg/dl (1.8-2.4); Mean Corpuscular Volume 74.2 fL (80-100); Mean Platelet Volume 9.7 fL (7.4-10.4); Platelet Count 259 K/uL (130-400); Potassium 3.9 mmol/L (3.5-5.1); RDW Coefficient of Variation 19.1 % (11.5-14.5); RDW Standard Deviation 51.3 fL (36.4-46.3); Red Blood Count 3.91 M/uL (4.2-5.4); White Blood Count 18.24 K/uL (4.8-10.8)
[2018-09-03 16:26] LABS: Basophils # (auto) 0.03 K/uL (0-0.2); Basophils % (auto) 0.2 %; Eosinophils # (auto) 0.02 K/uL (0-0.5); Eosinophils % (auto) 0.1 %; Hypochromasia Present; Immature Granulocytes # (auto) 0.05 K/uL (0.00-0.02); Immature Granulocytes % (auto) 0.3 %; Lymphocytes # (auto) 1.04 K/uL (1.2-3.4); Lymphocytes % (auto) 5.7 %; Monocytes # (auto) 1.24 K/uL (0.11-0.59); Monocytes % (auto) 6.8 %; Neutrophils # (auto) 15.86 K/uL (1.4-6.5); Neutrophils % (auto) 86.9 %
[2018-09-03 16:28] LABS: Globulin 3.6 gm/dl (2.5-4.0); Total Protein 7.1 gm/dl (6.4-8.2)
--- NOTE | 2018-09-03 16:35 | Ultrasound Report ---
US venous doppler UE LT CLINICAL HISTORY: Left forearm swelling. COMPARISON STUDY: No previous studies for comparison. FINDINGS: The left internal jugular, subclavian, axillary, cephalic, brachial, basilic, radial and ul jamel veins are patent. Left forearm subcutaneous edema is noted with no fluid collection. IMPRESSION: No deep venous thrombus within the left upper extremity. Electronically signed by: Braxton Florez M.D. 09/03/2018 4:34 PM
[2018-09-03 16:40] LABS: T4 Free Thyroxine 1.6 ng/dl (0.8-1.6)
[2018-09-03] MEDS ORDERED: cefTRIAXone SODIUM 1,000 MG/50 ML BAG IV STA (17:33)
[2018-09-03] MEDS ORDERED: ACETAMINOPHEN 500 MG TAB ONE (17:55)
--- NOTE | 2018-09-03 18:57 | History & Physical Report ---
Date of Service September 03, 2018 Assessment & Plan (1) Edema: 88 y/o F Hx PAF, HTN, DM II, hypothyroid, chronic microcytic anemia. The pt had been to her MD today due to new onset of edema in her extremities and pain and redness in her L arm. She does not have a history of CHF and was not c /o CP or SOB. Her MD felt that she was volume overloaded and suspected cellulitis of her arm. She was referred to the hospital therefore. The pt was admitted to the ICU in June for DKA and sepsis. No source of infection was determined and she recovered with broad spectrum antibiotics. Initial labs are notable for leukocytosis. A CXR suggests vascular congestion. 1) Cellulitis LUE - placed on Ceftriaxone and Vanc considering her recent sepsis. 2) Edema in all extremities, JVD on exam, vascular congestion on CXR. Likely new-onset CHF as her albumin is WNL. We will provide Lasix, I/O, daily weights. Cont her B alisia. Echo is pending. Consult cardiology depending on echo result. It is maria l noted that her EKG displays low voltage compared to previous and that a pericardial effusion is also a concern. 3) Anemia - approximately at baseline - trend AM 4) DM - placed on a SS 5) HTN, PAF - cont Metoprolol, anticoagulated with Xarelto Full code - Xarelto prophylaxis Total time for this admit including review of labs, meds, imaging, records - discussion with pt and ER attending - 42 min Present on Admission?: Yes History of Present Illness Chief Complaint: Edema, pain and erythema of L arm Primary Care Provider: Liam Benavides, DO 88 y/o F Hx PAF, HTN, DM II, hypothyroid, chronic microcytic anemia. The pt had been to her MD today due to new onset of edema in her extremities and pain and redness in her L arm. She does not have a history of CHF and was not c/o CP or SOB. Her MD felt that she was volume overloaded and suspected cellulitis of her arm. She was referred to the hospital therefore. The pt was admitted to the ICU in June for DKA and sepsis. No source of infection was determined and she recovered with broad spectrum antibiotics. Initial labs are notable for leukocytosis. A CXR suggests vascular congestion. PMH: 1) PAF - xarelto 2) HTN 3) IDDM 4) PAF 5) Hypothyroid 6) Chronic microcytic anemia - Hb 8-10 7) COPD per imaging which is not treated Social: She quit smoking 20 years ago and does not drink alcohol Family: Mother due to complications of DM Allergies Allergy/AdvReac Type Severity Reaction Status Date / Time erythromycin base Allergy Unknown Unverified 09/03/18 16:49 Home Medications Home Medications Medication Instructions Recorded Confirmed Type calcium carbonate-vitamin D3 1 tab PO BID 05/16/18 09/03/18 History [Caltrate 600 + D] cholecalciferol (vitamin D3) 2,000 unit PO DAILY 05/16/18 09/03/18 History [Vitamin D3] cranberry extract 500 mg PO DAILY 05/16/18 09/03/18 History cyanocobalamin (vitamin B-12) 1,000 mcg PO DAILY 05/16/18 09/03/18 History [Vitamin B-12] levothyroxine 125 mcg PO DAILY 05/16/18 09/03/18 History ranitidine HCl 150 mg PO BID 05/16/18 09/03/18 History rivaroxaban [Xarelto] 20 mg PO DAILY 05/16/18 09/03/18 History vit C,W-Fn-bioox-lutein-zeaxan 1 tab PO BID 05/16/18 09/03/18 History [PreserVision AREDS-2] acetaminophen 1,000 mg PO BID 09/03/18 09/03/18 History acetaminophen 650 mg PO Q6H PRN MDD 3GM/24HR 09/03/18 09/03/18 History amlodipine 5 mg PO DAILY 09/03/18 09/03/18 History dextromethorphan-guaifenesin [Safe 10 ml PO Q4H PRN 09/03/18 09/03/18 History Tussin DM] glucagon (human recombinant) 1 ml IM UD PRN 09/03/18 09/03/18 History [Glucagon Emergency Kit (human)] insulin NPH isoph U-100 human 10 unit SUBCUT DAILY 09/03/18 09/03/18 History [Humulin N NPH Insulin KwikPen] insulin aspart U-100 [Novolog 1 sliding scale dose SUBCUT UD 09/03/18 09/03/18 History U-100 Insulin aspart] insulin glargine [Lantus Solostar 20 unit SUBCUT DAILY 09/03/18 09/03/18 History U-100 Insulin] sodium chloride [Saline Mist] 2 spray INTRANASAL DAILY PRN 09/03/18 09/03/18 History digoxin 0.125 mg PO DAILY@1600 30 Days #30 09/12/18 Rx tab doxycycline hyclate 100 mg PO BID 14 Days #28 cap 09/12/18 Rx ferrous sulfate 325 mg PO BIDM 30 Days #60 tab 09/12/18 Rx furosemide 40 mg PO BID17 7 Days #7 tab 09/12/18 Rx lisinopril 2.5 mg PO QAM 30 Days #30 tab 09/12/18 Rx metoprolol succinate 200 mg PO DAILY #0 tab 09/12/18 09/03/18 Rx potassium chloride [Klor-Con M10] 20 meq PO BID 7 Days #28 tab 09/12/18 Rx tramadol 50 mg PO Q4H 5 Days #10 tab 09/12/18 Rx Past Med/Surg History Medical History Diarrhea Diabetes (Chronic) Macular degeneration (Chronic) HTN (hypertension) (Chronic) Abnormal EKG (Acute) DKA (diabetic ketoacidosis) (Acute) Epistaxis (Acute) Fever (Acute) Microcytic anemia (Acute) Nondisplaced fracture of right femur SIRS (systemic inflammatory response syndrome) (Acute) Symptomatic anemia (Acute) Acute dehydration (Acute) Acute hyperglycemia (Acute) Acute thoracic back pain (Acute) Atrial fibrillation (Chronic) Sepsis Afib Back pain Hypertension Hypothyroidism Diabetes mellitus type 2 with complications Surgical History Status post hysterectomy Family History Other DM type 2 (diabetes mellitus, type 2) Hypertension Social History Current Living Situation: Personal Care Facility Current Living Situation Comment: Pt currently lives alone, with family checking in on her and caregiver. Feels Safe at Home: Yes Safety Concerns: Feels Safe At This Time Smoking Status: Never smoker Hx Alcohol Use: No Hx Substance Use: No Beliefs That Will Affect Care: None Preferred Language: P[place]in[place] Review of Systems General: Denies fevers, night sweats, weight loss, weight gain ENT: Denies throat pain, nasal congestion Eyes: Denies acute visual impairment, eye pain Cardiovascular: Denies CP, palpitations, PND, orthopnea Respiratory: Denies SOB, productive cough, wheezing GI: Denies nausea, vomiting, diarrhea, constipation, GI bleeding : Denies dysuria, hesitancy, frequency, hematuria Neuro: Denies headache, lightheadedness, syncope, unilateral weakness, acute loss of balance, memory loss Endocrine: Denies polydypsia, polyuria Heme: Denies unexplained bruising Skin: Pain, weeping edema and erythema of LUE Musculoskeletal: Edema in all extremities Physical Exam 2 Vital Signs (Past 24 Hours): Last Vital Signs Temp 36.5 C 09/03/18 13:47 Pulse 113 H 09/03/18 17:34 Resp 20 09/03/18 17:34 BP 147/95 H 09/03/18 17:34 Pulse Ox 97 09/03/18 17:34 Physical Exam: General: AAO x 3, no distress ENT: No erythema or exudates, no thrush Eyes: GRETA, EOMI Head and neck: Normocephalic, atraumatic - BL JVD present Chest/heart: Nontender, S1,2, ir, mild systolic murmur Lungs: Poor air moveemnt - decreased air at bases - no clear crackles/wheezing Abdomen: Nontender, nondistended, BS+ Neuro: AAO x 3, speech is clear, no unilateral weakness or loss of sensation, coordination intact Musculoskeletal: edema is present in all extrems - ROM L arm is full although movement is painful Skin: Erythema and pain of LUE extending for above elbow to wrist Extremities: No clubbing, cyanosis - pitting edema as above
[2018-09-03] MEDS ORDERED: NITROGLYCERIN SL 0.4 MG/TAB TAB SL PRN (20:53)
[2018-09-03] MEDS ORDERED: ALUMINUM/MAGNESIUM SUSP 30 ML UDC PO PRN (20:53)
[2018-09-03] MEDS ORDERED: POLYETHYLENE (MIRALAX) 17 GM PACK PO PRN (20:53)
[2018-09-03] MEDS ORDERED: MoRPHine SULFATE 2 MG/ML CARP IV PRN (20:53)
[2018-09-03] MEDS ORDERED: FUROSEMIDE 40 MG/4 ML VIAL IV SCH (20:53)
[2018-09-03] MEDS ORDERED: INSULIN GLARGINE 100 UNIT/ML VIAL SC ONE (20:53)
[2018-09-03] MEDS ORDERED: MAGNESIUM HYDROXIDE SUSP 30 ML UDC PO PRN (20:53)
[2018-09-03] MEDS ORDERED: ONDANSETRON INJ 2 MG/ML 2 ML VIAL IV PRN (20:53)
[2018-09-03] MEDS ORDERED: VANCOMYCIN HCL 1,000 MG in SODIUM CHLORIDE 0.9% 250 ML IV SCH (20:53)
[2018-09-03] MEDS ORDERED: VANCOMYCIN CONSULT ACTIVE PRN (20:53)
[2018-09-03] MEDS ORDERED: INSULIN GLARGINE SOLOSTAR 100 UNITS/ML 3 ML PEN SQ ONE (21:15)
[2018-09-03] MEDS ORDERED: VANCOMYCIN HCL 1,500 MG in SODIUM CHLORIDE 0.9% 500 ML IV ONE (21:15)
[2018-09-03] MEDS: POTASSIUM CHLORIDE 10 MEQ TABCR PO SCH (21:39)
[2018-09-03] MEDS: FUROSEMIDE 20 MG in SYRINGE 0 ML IV SCH (21:40)
[2018-09-03] MEDS: INSULIN ASPART 100 UNITS/ML 3 ML PEN SC SCH (21:46)
[2018-09-04] MEDS: LEVOTHYROXINE SODIUM 125 MCG TABLET PO SCH (06:10)
[2018-09-04 06:26] LABS: Hematocrit (blood only) 28.9 % (37-47); Hemoglobin 8.5 g/dL (12.0-16.0); Mean Corpuscular Hgb Conc 29.4 g/dL (32-36); Mean Corpuscular Volume 73.5 fL (80-100); Mean Platelet Volume 9.4 fL (7.4-10.4); Platelet Count 239 K/uL (130-400); RDW Coefficient of Variation 18.8 % (11.5-14.5); Red Blood Count 3.93 M/uL (4.2-5.4); White Blood Count 19.01 K/uL (4.8-10.8)
[2018-09-04 06:47] LABS: Basophils # (auto) 0.03 K/uL (0-0.2); Basophils % (auto) 0.2 %; Eosinophils # (auto) 0.02 K/uL (0-0.5); Eosinophils % (auto) 0.1 %; Hypochromasia Present; Immature Granulocytes # (auto) 0.07 K/uL (0.00-0.02); Immature Granulocytes % (auto) 0.4 %; Lymphocytes # (auto) 1.09 K/uL (1.2-3.4); Lymphocytes % (auto) 5.7 %; Monocytes % (auto) 7.9 %; Neutrophils % (auto) 85.7 %
[2018-09-04 07:01] LABS: BUN Creatinine Ratio 23.2 (10-20); Calcium 8.9 mg/dl (8.5-10.1); Creatinine Clr Calc Pharmacy 30.6 ml/min; Est GFR (African American) 54.9; Est GFR (Non-African American) 47.4; Magnesium 1.9 mg/dl (1.8-2.4); Potassium 3.8 mmol/L (3.5-5.1)
[2018-09-04] MEDS ORDERED: MAGNESIUM SULFATE / D5W 1 GM/100 ML BAG IV ONE (07:49)
[2018-09-04] MEDS: FUROSEMIDE 20 MG in SYRINGE 0 ML IV SCH (07:52)
[2018-09-04] MEDS: CYANOCOBALAMIN 500 MCG TABLET (VITAMIN B-12) PO SCH (07:53)
[2018-09-04] MEDS: POTASSIUM CHLORIDE 10 MEQ TABCR PO SCH ×2 (08:36→20:14)
[2018-09-04 08:58] LABS: Ferritin 26.1 ng/ml (8-388); Iron 18 mcg/dl (35-150); Transferrin 324 mg/dl (200-360); Transferrin Percent Saturation 4 % (15-50); Troponin I < 0.015 ng/ml (0-0.045)
[2018-09-04] MEDS ORDERED: METOPROLOL SUCC 50MG EXT REL TAB PO SCH (09:00)
[2018-09-04] MEDS ORDERED: INSULIN GLARGINE SOLOSTAR 100 UNITS/ML 3 ML PEN SQ SCH (09:00)
[2018-09-04] MEDS ORDERED: AMLODIPINE BESYLATE 5 MG TAB PO SCH (09:00)
[2018-09-04 09:07] LABS: Folate (Folic Acid) 15.88 ng/ml (>5.38); Vitamin B12 > 2000 pg/ml (211-911)
[2018-09-04] MEDS: RIVAROXABAN 20 MG TAB PO SCH (09:37)
[2018-09-04] MEDS: INSULIN ASPART 100 UNITS/ML 3 ML PEN SC SCH ×4 (09:44→20:46)
--- NOTE | 2018-09-04 09:54 | Cardiology Consultation ---
Addendum entered and electronically signed by Jose Figueroa MD 09/04/18 11:56: Addendum (Blank) Addendum September 04, 2018 11:53 - ECHO shows increased RV dilitation and signs of CHF/volume overload - Metoprolol increased to 200mg. Recommend addition of low dose of Carvedilol. If she does not tolerate Metroprolol increase and carvedilol would rather go back down on metoprolol and maintain the addition of carvedilol. - Furosemide increased from 20mg IV BID17 to 40mg IV BID17. Titrate to good UOP , Cr daily Original Note: Date of Consultation September 04, 2018 Assessment & Plan (1) CHF (congestive heart failure): Barbara Berg is an 88-year-old female with a history of A. fib, hypertension, and T2 DM referred to the ED by her PCP for volume overload who presents with JVD, distal extremity edema, and new onset shortness of breath with increased exercise intolerance consistent with congestive heart failure. She has not had chest pain with any of her episodes. She has an unusual systolic murmur with a musical characteristic. Recommend transthoracic echocardiogram Continue amlodipine 5 mg p.o. daily Recommend increasing metoprolol. Would likely benefit from the addition of carvedilol in the future for combined beta and alpha adrenergic control. She was previously on lisinopril 40 mg p.o. daily which was stopped around November 2016 when amlodipine was started in context of the hospital admission. Given that her creatinine is normal (1.05 today) and she has poorly controlled type 2 diabetes mellitus she would benefit from incorporating this into her blood pressure management. She presents with symptoms of volume overload, will tailor recommendations based on echo but expect preload management with diuretics for CHF. Continue furosemide 20 mg twice daily We will follow-up on unusual murmur based on echo findings. May represent a mitral regurg versus unusual rub. Continue rivaroxaban 20 mg p.o. daily 2/2 A. fib Recommend tightened diabetic control. She is insulin-dependent with A1c greater than 10 last month with a history of DKA. Glucose of g 335 this morning. BMP daily (2) Anemia: (3) Edema: Supervising Physician Co-Signing Physician Notes History of present illness: 88-year-old woman admitted 09/03/18 with progressive dyspnea on exertion and leg edema, no chest pain at any time. 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 Past medical history/review of systems: Per Dr. Figueroa. Physical examination: No distress. Vitals: Afebrile. BP generally hypertensive (168/98), pulse irregular and tachycardic (115 bpm), respirations 20 but unlabored. Skin: no ecchymoses or generalized lesions. HEENT: unremarkable. Neck: Jugular venous pulse elevated above the angle of the jaw, no carotid bruits. Lungs: Few basilar crackles, no wheezing, generally clear. Cardiac: regular rhythm with 4/6 "musical/honking" holosystolic murmur left sternal border which decreases on inspiration. Abdomen benign. Extremities: Trace/1+ pretibial edema, intact dorsalis pedis pulses, good capillary refill. Neurologic: normal affect, nonfocal. Data: ECG showed atrial fibrillation with rapid ventricular response, poor R wave progression, diffuse nonspecific ST abnormality. Chest x-ray shows cardiomegaly with pulmonary vascular congestion and trace bilateral pleural effusions as well as advanced emphysema with chronic interstitial coarsening. White count 19.0, hemoglobin 8.5, normal platelet count. INR elevated at 1.5, PTT 31.5. Normal electrolytes, BUN 24, creatinine 1.05. Glucose is high as 546. Troponin negative x3. Echocardiogram showed EF 40-45% with mild to moderate global hypokinesis, moderately dilated right ventricle with reduced systolic function and evidence of RV volume overload, severe mitral and tricuspid regurgitation with moderate pulmonary hypertension. Compared with prior study, all of these findings were new. Impression: 1. New onset systolic/diastolic congestive heart failure: Since an echocardiogram just under 2 years ago she has developed significant mitral and tricuspid regurgitation with evidence of right heart volume overload. Etiology is uncertain, potentially simply progression of underlying valvular disease or alternatively fluid retention resulting in annular dilatation and functional mitral and tricuspid regurgitation secondary to cardiac dilation. No evidence of ischemic component at this time, but eventually workup should exclude this. Recommend more aggressive volume unloading, increase furosemide from 20 mg twice daily to 40 mg twice daily intravenously, further upward titration to achieve diuresis of 5-10 pounds. Agree with upward titration of beta-alisia, will also add carvedilol for further afterload reduction, once heart rate is controlled could reduce her beta -alisia and increase carvedilol further. She is on amlodipine for afterload reduction, would not treat this any higher, since high dose would exacerbate leg edema. Initiate CHERYL inhibitor as additional antihypertensive given some degree of systolic dysfunction. 2.Atrial fibrillation with rapid ventricular response: As noted, additional metoprolol for better rate control. Anticoagulated with Xarelto. 3. Severe mitral regurgitation/severe tricuspid regurgitation/moderate pulmonary hypertension: Reevaluate valve status after aggressive volume unloading, rate control of her atrial fibrillation, and afterload reduction. Quite possibly, improvement in heart size and hemodynamics may reduce the severity of her regurgitation. Recommend repeat echo as outpatient to reevaluate the role her valvular disease may play (primary or secondary). We will continue to follow along with you. Thank you for allowing us to be involved in the care of this patient. History of Present Illness Reason for Consultation: Evaluation and management of possible new congestive heart failure Requesting Physician: Sandy Bates MD Attending Physician: Sandy Bates MD History of Present Illness Barbara is an 88-year-old female with a past medical history of atrial fibrillation anticoagulated with Xarelto, hypertension, insulin-dependent type 2 diabetes mellitus poorly controlled, hypothyroidism, and anemia. She presented to the hospital as a referral from her PCP for volume overload with approximately 4 days of increased shortness of breath and swelling in her hands and feet. She reports that she has had increased shortness of breath and swelling in her hands and feet for 4 days. Denies problems with swelling or fluid before that. She denies chest pain, chest pressure, and cough. She does not think her shortness of breath is worse at night, and has never tried sleeping flat on her back recently so does not know if it would make her more short of breath. She lives in [place] at an "old folor home with nursing care." She walks down a slight grade to get breakfast and has been mostly okay without shortness of breath, but for several weeks coming back up the late grade she becomes easily winded and has had several episodes of bowel incontinence because she cannot make it up to the restroom in time due to her shortness of breath. Denies fever, chills, night sweats, abdominal pain, constipation, numbness, tingling, headache. She has had chronically poor vision for many years, no acute change. Denies neuropathy. No lightheadedness, dizziness, loss of consciousness. Endorses chronic diarrhea intermittently, loose but not liquid. Endorses some sweating with her shortness of breath in the last 3 days. Her hypertension at home is managed with amlodipine 5 mg by mouth daily and metoprolol 150 mg by mouth once daily. She was previously on lisinopril 40 mg daily, this was stopped when her amlodipine was started around November 2016 during a hospital admission for DKA. Her type 2 diabetes is managed with basal bolus insulin at home. Her HgA1c on July 03 was 11.7, last month on August 06 was 10. No tobacco use in the last 20 years. No alcohol or recreational drug use. She has hypothyroidism managed with levothyroxine 125 mcg by mouth daily, TSH on admit was slightly elevated to 6.3 free T4 of 1.6. Allergies Allergy/AdvReac Type Severity Reaction Status Date / Time erythromycin base Allergy Unknown Unverified 09/03/18 16:49 Home Medications Home Medications Medication Instructions Recorded Confirmed Type calcium carbonate-vitamin D3 1 tab PO BID 05/16/18 09/03/18 History [Caltrate 600 + D] cholecalciferol (vitamin D3) 2,000 unit PO DAILY 05/16/18 09/03/18 History [Vitamin D3] cranberry extract 500 mg PO DAILY 05/16/18 09/03/18 History cyanocobalamin (vitamin B-12) 1,000 mcg PO DAILY 05/16/18 09/03/18 History [Vitamin B-12] levothyroxine 125 mcg PO DAILY 05/16/18 09/03/18 History ranitidine HCl 150 mg PO BID 05/16/18 09/03/18 History rivaroxaban [Xarelto] 20 mg PO DAILY 05/16/18 09/03/18 History vit C,T-Ek-sjwzq-lutein-zeaxan 1 tab PO BID 05/16/18 09/03/18 History [PreserVision AREDS-2] acetaminophen 1,000 mg PO BID 09/03/18 09/03/18 History acetaminophen 650 mg PO Q6H PRN MDD 3GM/24HR 09/03/18 09/03/18 History amlodipine 5 mg PO DAILY 09/03/18 09/03/18 History dextromethorphan-guaifenesin [Safe 10 ml PO Q4H PRN 09/03/18 09/03/18 History Tussin DM] glucagon (human recombinant) 1 ml IM UD PRN 09/03/18 09/03/18 History [Glucagon Emergency Kit (human)] insulin NPH isoph U-100 human 10 unit SUBCUT DAILY 09/03/18 09/03/18 History [Humulin N NPH Insulin KwikPen] insulin aspart U-100 [Novolog 1 sliding scale dose SUBCUT UD 09/03/18 09/03/18 History U-100 Insulin aspart] insulin glargine [Lantus Solostar 20 unit SUBCUT DAILY 09/03/18 09/03/18 History U-100 Insulin] metoprolol succinate 150 mg PO DAILY 09/03/18 09/03/18 History sodium chloride [Saline Mist] 2 spray INTRANASAL DAILY PRN 09/03/18 09/03/18 History Patient History Medical History Diarrhea Diabetes (Chronic) Macular degeneration (Chronic) HTN (hypertension) (Chronic) Abnormal EKG (Acute) DKA (diabetic ketoacidosis) (Acute) Epistaxis (Acute) Fever (Acute) Microcytic anemia (Acute) Nondisplaced fracture of right femur SIRS (systemic inflammatory response syndrome) (Acute) Symptomatic anemia (Acute) Acute dehydration (Acute) Acute hyperglycemia (Acute) Acute thoracic back pain (Acute) Atrial fibrillation (Chronic) Sepsis Afib Back pain Hypertension Hypothyroidism Diabetes mellitus type 2 with complications Surgical History Status post hysterectomy Social History Current Living Situation: Personal Care Facility Current Living Situation Comment: Pt currently lives alone, with family checking in on her and caregiver. Feels Safe at Home: Yes Safety Concerns: Feels Safe At This Time Smoking Status: Never smoker Hx Alcohol Use: No Hx Substance Use: No Beliefs That Will Affect Care: None Communication Ability: Effective Review of Systems See HPI Physical Exam 2 Vital Signs (Past 24 Hours): Last Vital Signs Temp 36.8 C 09/04/18 07:41 Pulse 133 H 09/04/18 07:41 Resp 27 H 09/04/18 07:41 BP 137/59 L 09/04/18 07:41 Pulse Ox 94 09/04/18 07:41 Physical Exam: General: Alert and oriented to date, place, and city but not to president or year. NAD. Cooperative. Vitals as above. Pulm: Faint bilateral crackles in the dependent lobes bilaterally. Otherwise CTAB A&P. -wheezes, -overt rales, -rhonchi. Symmetrical chest rise. No increase work of breathing. No respiratory distress. Cardiac: Musical systolic murmur appreciated. Rate irregularly irregular. JVD is present above the mandible bilaterally. 1+ pretibial pitting edema in the legs bilaterally. Dorsalis pedis pulses intact and symmetrical bilaterally. Abdominal: Nontender, nondistended, soft. BS present. Results & Data Laboratory Results 09/04/18 09/04/18 09/04/18 Range/Units 08:39 08:37 08:24 WBC (4.8-10.8) K/uL RBC (4.2-5.4) M/uL Hgb (12.0-16.0) g/dL Hct (37-47) % MCV (80-100) fL MCH (25-34) pg MCHC (32-36) g/dL RDW Std Deviation (36.4-46.3) fL RDW Coeff of Chris (11.5-14.5) % Plt Count (130-400) K/uL MPV (7.4-10.4) fL Immature Gran % (Auto) % Neut % (Auto) % Lymph % (Auto) % Tillman % (Auto) % Eos % (Auto) % Baso % (Auto) % Immature Gran # (Auto) (0.00-0.02) K/uL Neut # (Auto) (1.4-6.5) K/uL Lymph # (Auto) (1.2-3.4) K/uL Tillman # (Auto) (0.11-0.59) K/uL Eos # (Auto) (0-0.5) K/uL Baso # (Auto) (0-0.2) K/uL Hypersegmented Neuts Hypochromasia PT (9.0-12.0) Seconds INR (0.9-1.1) APTT (21.0-31.0) Seconds PTT Ratio Sodium (136-145) mmol/L Potassium (3.5-5.1) mmol/L Chloride (98-107) mmol/L Carbon Dioxide (21-32) mmol/L Anion Gap (3-11) BUN (7-18) mg/dl Creatinine (0.6-1.2) mg/dl Est Cr Clr Drug Dosing ml/min Est GFR ( Amer) Est GFR (Non-Af Amer) BUN/Creatinine Ratio (10-20) Glucose (70-99) mg/dl POC Glucose 335 H 546 H* (70-99) Calcium (8.5-10.1) mg/dl Magnesium (1.8-2.4) mg/dl Iron (35-150) mcg/dl TIBC (250-450) mcg/dl Transferrin (200-360) mg/dl Transferrin % Sat (15-50) % Ferritin (8-388) ng/ml Total Bilirubin (0.1-1) mg/dl AST (15-37) U/L ALT (12-78) U/L Alkaline Phosphatase (45-117) U/L Troponin I (0-0.045) ng/ml Total Protein (6.4-8.2) gm/dl Albumin (3.4-5.0) gm/dl Globulin (2.5-4.0) gm/dl Albumin/Globulin Ratio (0.9-2) Vitamin B12 > 2000 H (211-911) pg/ml Folate 15.88 (>5.38) ng/ml TSH (0.300-4.500) uIu/ml Free T4 (0.8-1.6) ng/dl 09/04/18 09/04/18 09/04/18 Range/Units 08:24 06:05 06:05 WBC 19.01 H (4.8-10.8) K/uL RBC 3.93 L (4.2-5.4) M/uL Hgb 8.5 L (12.0-16.0) g/dL Hct 28.9 L (37-47) % MCV 73.5 L (80-100) fL MCH 21.6 L (25-34) pg MCHC 29.4 L (32-36) g/dL RDW Std Deviation 51.0 H (36.4-46.3) fL RDW Coeff of Chris 18.8 H (11.5-14.5) % Plt Count 239 (130-400) K/uL MPV 9.4 (7.4-10.4) fL Immature Gran % (Auto) 0.4 % Neut % (Auto) 85.7 % Lymph % (Auto) 5.7 % Tillman % (Auto) 7.9 % Eos % (Auto) 0.1 % Baso % (Auto) 0.2 % Immature Gran # (Auto) 0.07 H (0.00-0.02) K/uL Neut # (Auto) 16.30 H (1.4-6.5) K/uL Lymph # (Auto) 1.09 L (1.2-3.4) K/uL Tillman # (Auto) 1.50 H (0.11-0.59) K/uL Eos # (Auto) 0.02 (0-0.5) K/uL Baso # (Auto) 0.03 (0-0.2) K/uL Hypersegmented Neuts 1+ Hypochromasia Present PT (9.0-12.0) Seconds INR (0.9-1.1) APTT (21.0-31.0) Seconds PTT Ratio Sodium 136 (136-145) mmol/L Potassium 3.8 (3.5-5.1) mmol/L Chloride 103 (98-107) mmol/L Carbon Dioxide 21 (21-32) mmol/L Anion Gap 13.0 H (3-11) BUN 24 H (7-18) mg/dl Creatinine 1.05 (0.6-1.2) mg/dl Est Cr Clr Drug Dosing 30.6 ml/min Est GFR ( Amer) 54.9 Est GFR (Non-Af Amer) 47.4 BUN/Creatinine Ratio 23.2 H (10-20) Glucose 272 H (70-99) mg/dl POC Glucose (70-99) Calcium 8.9 (8.5-10.1) mg/dl Magnesium 1.9 (1.8-2.4) mg/dl Iron 18 L (35-150) mcg/dl TIBC 392 (250-450) mcg/dl Transferrin 324 (200-360) mg/dl Transferrin % Sat 4 L (15-50) % Ferritin 26.1 (8-388) ng/ml Total Bilirubin (0.1-1) mg/dl AST (15-37) U/L ALT (12-78) U/L Alkaline Phosphatase (45-117) U/L Troponin I < 0.015 (0-0.045) ng/ml Total Protein (6.4-8.2) gm/dl Albumin (3.4-5.0) gm/dl Globulin (2.5-4.0) gm/dl Albumin/Globulin Ratio (0.9-2) Vitamin B12 (211-911) pg/ml Folate (>5.38) ng/ml TSH (0.300-4.500) uIu/ml Free T4 (0.8-1.6) ng/dl 09/03/18 09/03/18 09/03/18 Range/Units 21:41 15:48 15:48 WBC (4.8-10.8) K/uL RBC (4.2-5.4) M/uL Hgb (12.0-16.0) g/dL Hct (37-47) % MCV (80-100) fL MCH (25-34) pg MCHC (32-36) g/dL RDW Std Deviation (36.4-46.3) fL RDW Coeff of Chris (11.5-14.5) % Plt Count (130-400) K/uL MPV (7.4-10.4) fL Immature Gran % (Auto) % Neut % (Auto) % Lymph % (Auto) % Tillman % (Auto) % Eos % (Auto) % Baso % (Auto) % Immature Gran # (Auto) (0.00-0.02) K/uL Neut # (Auto) (1.4-6.5) K/uL Lymph # (Auto) (1.2-3.4) K/uL Tillman # (Auto) (0.11-0.59) K/uL Eos # (Auto) (0-0.5) K/uL Baso # (Auto) (0-0.2) K/uL Hypersegmented Neuts Hypochromasia PT (9.0-12.0) Seconds INR (0.9-1.1) APTT (21.0-31.0) Seconds PTT Ratio Sodium 137 (136-145) mmol/L Potassium 3.9 (3.5-5.1) mmol/L Chloride 105 (98-107) mmol/L Carbon Dioxide 24 (21-32) mmol/L Anion Gap 8.0 (3-11) BUN 24 H (7-18) mg/dl Creatinine 1.02 (0.6-1.2) mg/dl Est Cr Clr Drug Dosing 31.5 ml/min Est GFR ( Amer) 56.9 Est GFR (Non-Af Amer) 49.1 BUN/Creatinine Ratio 23.7 H (10-20) Glucose 237 H (70-99) mg/dl POC Glucose 303 H (70-99) Calcium 8.8 (8.5-10.1) mg/dl Magnesium 1.9 (1.8-2.4) mg/dl Iron (35-150) mcg/dl TIBC (250-450) mcg/dl Transferrin (200-360) mg/dl Transferrin % Sat (15-50) % Ferritin (8-388) ng/ml Total Bilirubin 1.0 (0.1-1) mg/dl AST 33 (15-37) U/L ALT 30 (12-78) U/L Alkaline Phosphatase 220 H (45-117) U/L Troponin I < 0.015 (0-0.045) ng/ml Total Protein 7.1 (6.4-8.2) gm/dl Albumin 3.5 (3.4-5.0) gm/dl Globulin 3.6 (2.5-4.0) gm/dl Albumin/Globulin Ratio 1.0 (0.9-2) Vitamin B12 (211-911) pg/ml Folate (>5.38) ng/ml TSH 6.310 H (0.300-4.500) uIu/ml Free T4 1.60 (0.8-1.6) ng/dl 09/03/18 09/03/18 Range/Units 15:48 15:48 WBC 18.24 H (4.8-10.8) K/uL RBC 3.91 L (4.2-5.4) M/uL Hgb 8.4 L (12.0-16.0) g/dL Hct 29.0 L (37-47) % MCV 74.2 L (80-100) fL MCH 21.5 L (25-34) pg MCHC 29.0 L (32-36) g/dL RDW Std Deviation 51.3 H (36.4-46.3) fL RDW Coeff of Chris 19.1 H (11.5-14.5) % Plt Count 259 (130-400) K/uL MPV 9.7 (7.4-10.4) fL Immature Gran % (Auto) 0.3 % Neut % (Auto) 86.9 % Lymph % (Auto) 5.7 % Tillman % (Auto) 6.8 % Eos % (Auto) 0.1 % Baso % (Auto) 0.2 % Immature Gran # (Auto) 0.05 H (0.00-0.02) K/uL Neut # (Auto) 15.86 H (1.4-6.5) K/uL Lymph # (Auto) 1.04 L (1.2-3.4) K/uL Tillman # (Auto) 1.24 H (0.11-0.59) K/uL Eos # (Auto) 0.02 (0-0.5) K/uL Baso # (Auto) 0.03 (0-0.2) K/uL Hypersegmented Neuts Hypochromasia Present PT 14.5 H (9.0-12.0) Seconds INR 1.5 H (0.9-1.1) APTT 31.5 H (21.0-31.0) Seconds PTT Ratio 1.2 Sodium (136-145) mmol/L Potassium (3.5-5.1) mmol/L Chloride (98-107) mmol/L Carbon Dioxide (21-32) mmol/L Anion Gap (3-11) BUN (7-18) mg/dl Creatinine (0.6-1.2) mg/dl Est Cr Clr Drug Dosing ml/min Est GFR ( Amer) Est GFR (Non-Af Amer) BUN/Creatinine Ratio (10-20) Glucose (70-99) mg/dl POC Glucose (70-99) Calcium (8.5-10.1) mg/dl Magnesium (1.8-2.4) mg/dl Iron (35-150) mcg/dl TIBC (250-450) mcg/dl Transferrin (200-360) mg/dl Transferrin % Sat (15-50) % Ferritin (8-388) ng/ml Total Bilirubin (0.1-1) mg/dl AST (15-37) U/L ALT (12-78) U/L Alkaline Phosphatase (45-117) U/L Troponin I (0-0.045) ng/ml Total Protein (6.4-8.2) gm/dl Albumin (3.4-5.0) gm/dl Globulin (2.5-4.0) gm/dl Albumin/Globulin Ratio (0.9-2) Vitamin B12 (211-911) pg/ml Folate (>5.38) ng/ml TSH (0.300-4.500) uIu/ml Free T4 (0.8-1.6) ng/dl Diagnostic Findings US venous doppler UE LT CLINICAL HISTORY: Left forearm swelling. COMPARISON STUDY: No previous studies for comparison. FINDINGS: The left internal jugular, subclavian, axillary, cephalic, brachial, basilic, radial and ulnar veins are patent. Left forearm subcutaneous edema is noted with no fluid collection. IMPRESSION: No deep venous thrombus within the left upper extremity. Electronically signed by: Braxton Florez M.D. 09/03/2018 4:34 PM XR chest 1V portable HISTORY: 88 years-old Female SOB acute shortness of breath COMPARISON: Chest radiograph 07/02/2018, chest CT 05/04/2018 TECHNIQUE: Portable AP view of the chest FINDINGS: Cardiac silhouette is mildly enlarged. Severe emphysema with chronic interstitial coarsening. Calcification the thoracic aortic arch. Trace pleural effusions. Mild pulmonary vascular congestion without overt pulmonary edema. No pneumothorax. Trace fluid is seen tracking along the minor fissure. Degenerative changes of the shoulders and spine. IMPRESSION: 1. Cardiomegaly with pulmonary vascular congestion. 2. Trace bilateral pleural effusions. 3. Advanced emphysema with chronic interstitial coarsening. The above report was generated using voice recognition software. It may contain grammatical, syntax or spelling errors. Electronically signed by: Alex Mix M.D. 09/03/2018 2:55 PM Medications Administered Current Medications Acetaminophen (Tylenol) 650 mg PO Q4H PRN PRN Reason: Pain or Fever Stop: 10/03/18 20:52 Al Hydrox/Mg Hydrox/Simethicone (Maalox) 15 ml PO Q4H PRN PRN Reason: Dyspepsia Stop: 10/03/18 20:52 Amlodipine Besylate (Norvasc) 5 mg PO DAILY [facility] Stop: 10/04/18 08:59 Last Admin: 09/04/18 07:53 Dose: 5 mg Cyanocobalamin (Vitamin B-12) 1,000 mcg PO DAILY [facility] Stop: 10/04/18 08:59 Last Admin: 09/04/18 07:53 Dose: 1,000 mcg Ceftriaxone Sodium (Rocephin) 1,000 mg in 50 mls @ 100 mls/hr IV Q24H [facility]; Protocol Stop: 09/13/18 19:59 Furosemide 20 mg/ Syringe 2 mls @ 4 mls/min IV BID17 [facility] Stop: 10/03/18 20:59 Last Admin: 09/04/18 07:52 Dose: 4 mls/min Insulin Aspart (Novolog Flexpen) 0 units SC ACHS [facility] Stop: 10/03/18 20:59 Last Admin: 09/04/18 09:44 Dose: 9 units Insulin Glargine (Lantus Solostar Pen) 20 units SQ DAILY [facility] Stop: 10/04/18 08:59 Last Admin: 09/04/18 09:44 Dose: 20 units [facility]othy[facility]ine [facility] ([facility]) [facility] Stop: 10/04/18 06:29 Last Admin: 09/04/18 06:10 Dose: 125 mcg Magnesium Hydroxide (Milk Of Magnesia) 30 ml PO Q12H PRN PRN Reason: Constipation Stop: 10/03/18 20:52 Metoprolol Succinate (Toprol Xl) 150 mg PO DAILY [facility] Stop: 10/04/18 08:59 Last Admin: 09/04/18 07:52 Dose: 150 mg Miscellaneous Information (Consult) 1 ea N/A UD PRN PRN Reason: Consult Stop: 10/03/18 20:52 Morphine Sulfate (Morphine Sulfate) 2 mg IV Q30M PRN PRN Reason: Chest Pain Stop: 09/17/18 20:52 Nitroglycerin (Nitrostat) 0.4 mg SL UD PRN PRN Reason: Chest Pain Stop: 10/03/18 20:52 Ondansetron HCl (Zofran) 4 mg IV Q6H PRN PRN Reason: Nausea Stop: 10/03/18 20:52 Polyethylene Glycol (Miralax Powder Packet) 17 gm PO DAILY PRN PRN Reason: Constipation Stop: 10/03/18 20:52 Potassium Chloride (Klor-Con M10) 10 meq PO BID [facility] Stop: 10/03/18 20:59 Last Admin: 09/04/18 08:36 Dose: 10 meq Ranitidine HCl (Zantac) 150 mg PO BID [facility] Stop: 10/03/18 20:59 Last Admin: 09/03/18 21:40 Dose: 150 mg Rivaroxaban (Xarelto) 20 mg PO DAILY [facility] Stop: 10/04/18 08:59 Last Admin: 09/04/18 09:37 Dose: 20 mg _ (1) CHF (congestive heart failure) Heart failure chronicity: unspecified Heart failure type: unspecified Qualified Code(s): I50.9 - Heart failure, unspecified (2) Anemia Anemia type: unspecified type Bone marrow failure anemia type: Chronic kidney disease stage: Folate deficiency anemia type: Hemolytic anemia type: Iron deficiency anemia type: Other causes of anemia: Vitamin B12 deficiency anemia type: Qualified Code(s): D64.9 - Anemia, unspecified
[2018-09-04] MEDS ORDERED: METOPROLOL SUCC 25MG EXT REL TAB PO STA (11:18)
--- NOTE | 2018-09-04 11:23 | Hospitalist Progress Note ---
Date of Service September 04, 2018 Assessment & Plan (1) Edema: This pt is an 88 y/o F Hx permanent AFib, HTN, DM II, hypothyroid, chronic microcytic anemia. The pt had been to her [facility] the day of admission due to new onset of edema in her extremities and pain and redness in her L arm. She does not have a history of CHF and was not c/o CP, but was with SOB. Her MD felt that she was volume overloaded and suspected cellulitis of her arm. She was referred to the hospital therefore. Initial labs are notable for leukocytosis. A CXR suggests vascular congestion. Edema LEs from CHF and LUE secondary to cellulitis With significant JVD on exam, vascular congestion on CXR. With new-onset CHF as below and her albumin is WNL -treat CHF as below (2) Cellulitis: LUE - seems mild currently, causing edema, no significant wounds but with thin skin, likely had break in skin With leukocytosis persisting, afebrile, technically with Sepsis given leukocytosis and tachycardia -continue coverage for skin organisms with Ceftriaxone and Vanc -follow clinically -follow CBC (3) Anemia: approximately at baseline at 8.5 Microcytic Fe studies indicate Fe deficiency with ferritin 26, Trans sat 4% B12 and folate normal -check Hemoccult stool -will research if has had GI workup -transfuse if hgb <8.0 -will consider starting po iron -follow CBC (4) CHF (congestive heart failure): ECHO here with LVEF 40-45%, Right sided RV mod sys dysfunction, Pulm HTN, severe MR, TR With significant JVD, volume overload on exam and SAUL CXR with pulm edema and small effusions Possibly from tachyarrhythmia vs ischemia? -continue IV lasix 20mg bid -I/Os strict, daily weights -change to low Na+ diet -Appreciate Cardiology input -continue Toprol and increase to 200mg daily-start with additional 25mg x 1 now to see if BP tolerates higher dose -will eventually need lisinopril added back on -will lower amlodipine dose to make room in BP for addition of ACEi likely tomorrow -may need ischemic eval once acute CHF resolved (5) HTN (hypertension): BPs controlled -continue Toprol and increase dose as above -lower amlodipine as abpve to 2.5mg will need to add on ACEi tomorrow hopefully (6) Diabetes: With hyperglycemia here, had an extra 10units of Lantus last night HgbA1C was uncontrolled at 10.0% 1 month ago -continue Lantus and Novolog-added carb coverage and tightened sliding scale insulin -continue accuchecks,ADA diet (7) Hypothyroidism: TSH elevated here at 6 with normal FT4 -continue home dose SYnthroid and repeat TFTs in 4 weeks (8) Atrial fibrillation: Permanent rates uncontrolled at this time, may have contributed to CHF -increase Toprol XL to 200mg daily, add extra 25mg dose now -continue Xarelto for anticoagulation (9) Mitral regurgitation: severe on ECHO here -may need ishemic eval -control BP and watch volume status as above Cardiology following (10) Right-sided heart failure: Moderate RV dysfunction and Pulm HTN as above -possibly due to undiagnosed emphysema as seen on CXR? Diuresing as above (11) DVT prophylaxis: Xarelto Dispo-remain on tele, will likely be in hospital for 3-5 days Subjective Feeling less SON. Feels her left arm is improved and not sure about her leg swelling as she doesn't really pay attention to it. Denies any chest pain now or ever, only had SOB with exertion prior to admission Discussed case with Cardiology Tele with Afib and rates in 100s-130s Review of Systems All systems reviewed & are unremarkable except as noted in HPI & below Physical Exam 2 Vital Signs (Past 24 Hours): Last Vital Signs Temp 36.8 C 09/04/18 07:41 Pulse 133 H 09/04/18 07:41 Resp 27 H 09/04/18 07:41 BP 137/59 L 09/04/18 07:41 Pulse Ox 94 09/04/18 07:41 Constitutional: WD/WN, vitals as above (lying flat in bed when I came in the room) Eyes: PERRL, conjunctivae normal, anicteric sclerae ENMT: external ear and nose normal, oropharynx normal Neck: trachea midline, no thyromegaly Respiratory: normal respiratory effort; no respiratory distress Auscultation: + crackles (mild at bases); no rhonchi and no wheezes Cardiovascular: Rate/Rhythm: + tachycardic; + abnormal rhythm (irreg irreg) Vessels: + JVD (to angle of jaw) Extremities: + edema (1+ pitting edema of bilat distal legs and distal left upper extremity) Gastrointestinal (Abdomen): normal bowel sounds, soft, nontender, no hepatosplenomegaly Musculoskeletal: Extremities: extremities normal to inspection; no cyanosis and no clubbing Skin: no rashes, warm and dry Neurologic: moves all extremities and awake; no focal motor deficits Psychiatric: A+Ox3, euthymic affect Results & Data Laboratory Results 09/04/18 09/04/18 09/04/18 Range/Units 08:39 08:37 08:24 WBC (4.8-10.8) K/uL RBC (4.2-5.4) M/uL Hgb (12.0-16.0) g/dL Hct (37-47) % MCV (80-100) fL MCH (25-34) pg MCHC (32-36) g/dL RDW Std Deviation (36.4-46.3) fL RDW Coeff of Chris (11.5-14.5) % Plt Count (130-400) K/uL MPV (7.4-10.4) fL Immature Gran % (Auto) % Neut % (Auto) % Lymph % (Auto) % Mobile % (Auto) % Eos % (Auto) % Baso % (Auto) % Immature Gran # (Auto) (0.00-0.02) K/uL Neut # (Auto) (1.4-6.5) K/uL Lymph # (Auto) (1.2-3.4) K/uL Mobile # (Auto) (0.11-0.59) K/uL Eos # (Auto) (0-0.5) K/uL Baso # (Auto) (0-0.2) K/uL Hypersegmented Neuts Hypochromasia PT (9.0-12.0) Seconds INR (0.9-1.1) APTT (21.0-31.0) Seconds PTT Ratio Sodium (136-145) mmol/L Potassium (3.5-5.1) mmol/L Chloride (98-107) mmol/L Carbon Dioxide (21-32) mmol/L Anion Gap (3-11) BUN (7-18) mg/dl Creatinine (0.6-1.2) mg/dl Est Cr Clr Drug Dosing ml/min Est GFR ( Amer) Est GFR (Non-Af Amer) BUN/Creatinine Ratio (10-20) Glucose (70-99) mg/dl POC Glucose 335 H 546 H* (70-99) Calcium (8.5-10.1) mg/dl Magnesium (1.8-2.4) mg/dl Iron (35-150) mcg/dl TIBC (250-450) mcg/dl Transferrin (200-360) mg/dl Transferrin % Sat (15-50) % Ferritin (8-388) ng/ml Total Bilirubin (0.1-1) mg/dl AST (15-37) U/L ALT (12-78) U/L Alkaline Phosphatase (45-117) U/L Troponin I (0-0.045) ng/ml Total Protein (6.4-8.2) gm/dl Albumin (3.4-5.0) gm/dl Globulin (2.5-4.0) gm/dl Albumin/Globulin Ratio (0.9-2) Vitamin B12 > 2000 H (211-911) pg/ml Folate 15.88 (>5.38) ng/ml TSH (0.300-4.500) uIu/ml Free T4 (0.8-1.6) ng/dl 09/04/18 09/04/18 09/04/18 Range/Units 08:24 06:05 06:05 WBC 19.01 H (4.8-10.8) K/uL RBC 3.93 L (4.2-5.4) M/uL Hgb 8.5 L (12.0-16.0) g/dL Hct 28.9 L (37-47) % MCV 73.5 L (80-100) fL MCH 21.6 L (25-34) pg MCHC 29.4 L (32-36) g/dL RDW Std Deviation 51.0 H (36.4-46.3) fL RDW Coeff of Chris 18.8 H (11.5-14.5) % Plt Count 239 (130-400) K/uL MPV 9.4 (7.4-10.4) fL Immature Gran % (Auto) 0.4 % Neut % (Auto) 85.7 % Lymph % (Auto) 5.7 % Mobile % (Auto) 7.9 % Eos % (Auto) 0.1 % Baso % (Auto) 0.2 % Immature Gran # (Auto) 0.07 H (0.00-0.02) K/uL Neut # (Auto) 16.30 H (1.4-6.5) K/uL Lymph # (Auto) 1.09 L (1.2-3.4) K/uL Mobile # (Auto) 1.50 H (0.11-0.59) K/uL Eos # (Auto) 0.02 (0-0.5) K/uL Baso # (Auto) 0.03 (0-0.2) K/uL Hypersegmented Neuts 1+ Hypochromasia Present PT (9.0-12.0) Seconds INR (0.9-1.1) APTT (21.0-31.0) Seconds PTT Ratio Sodium 136 (136-145) mmol/L Potassium 3.8 (3.5-5.1) mmol/L Chloride 103 (98-107) mmol/L Carbon Dioxide 21 (21-32) mmol/L Anion Gap 13.0 H (3-11) BUN 24 H (7-18) mg/dl Creatinine 1.05 (0.6-1.2) mg/dl Est Cr Clr Drug Dosing 30.6 ml/min Est GFR ( Amer) 54.9 Est GFR (Non-Af Amer) 47.4 BUN/Creatinine Ratio 23.2 H (10-20) Glucose 272 H (70-99) mg/dl POC Glucose (70-99) Calcium 8.9 (8.5-10.1) mg/dl Magnesium 1.9 (1.8-2.4) mg/dl Iron 18 L (35-150) mcg/dl TIBC 392 (250-450) mcg/dl Transferrin 324 (200-360) mg/dl Transferrin % Sat 4 L (15-50) % Ferritin 26.1 (8-388) ng/ml Total Bilirubin (0.1-1) mg/dl AST (15-37) U/L ALT (12-78) U/L Alkaline Phosphatase (45-117) U/L Troponin I < 0.015 (0-0.045) ng/ml Total Protein (6.4-8.2) gm/dl Albumin (3.4-5.0) gm/dl Globulin (2.5-4.0) gm/dl Albumin/Globulin Ratio (0.9-2) Vitamin B12 (211-911) pg/ml Folate (>5.38) ng/ml TSH (0.300-4.500) uIu/ml Free T4 (0.8-1.6) ng/dl 09/03/18 09/03/18 09/03/18 Range/Units 21:41 15:48 15:48 WBC (4.8-10.8) K/uL RBC (4.2-5.4) M/uL Hgb (12.0-16.0) g/dL Hct (37-47) % MCV (80-100) fL MCH (25-34) pg MCHC (32-36) g/dL RDW Std Deviation (36.4-46.3) fL RDW Coeff of Chris (11.5-14.5) % Plt Count (130-400) K/uL MPV (7.4-10.4) fL Immature Gran % (Auto) % Neut % (Auto) % Lymph % (Auto) % Mobile % (Auto) % Eos % (Auto) % Baso % (Auto) % Immature Gran # (Auto) (0.00-0.02) K/uL Neut # (Auto) (1.4-6.5) K/uL Lymph # (Auto) (1.2-3.4) K/uL Mobile # (Auto) (0.11-0.59) K/uL Eos # (Auto) (0-0.5) K/uL Baso # (Auto) (0-0.2) K/uL Hypersegmented Neuts Hypochromasia PT (9.0-12.0) Seconds INR (0.9-1.1) APTT (21.0-31.0) Seconds PTT Ratio Sodium 137 (136-145) mmol/L Potassium 3.9 (3.5-5.1) mmol/L Chloride 105 (98-107) mmol/L Carbon Dioxide 24 (21-32) mmol/L Anion Gap 8.0 (3-11) BUN 24 H (7-18) mg/dl Creatinine 1.02 (0.6-1.2) mg/dl Est Cr Clr Drug Dosing 31.5 ml/min Est GFR ( Amer) 56.9 Est GFR (Non-Af Amer) 49.1 BUN/Creatinine Ratio 23.7 H (10-20) Glucose 237 H (70-99) mg/dl POC Glucose 303 H (70-99) Calcium 8.8 (8.5-10.1) mg/dl Magnesium 1.9 (1.8-2.4) mg/dl Iron (35-150) mcg/dl TIBC (250-450) mcg/dl Transferrin (200-360) mg/dl Transferrin % Sat (15-50) % Ferritin (8-388) ng/ml Total Bilirubin 1.0 (0.1-1) mg/dl AST 33 (15-37) U/L ALT 30 (12-78) U/L Alkaline Phosphatase 220 H (45-117) U/L Troponin I < 0.015 (0-0.045) ng/ml Total Protein 7.1 (6.4-8.2) gm/dl Albumin 3.5 (3.4-5.0) gm/dl Globulin 3.6 (2.5-4.0) gm/dl Albumin/Globulin Ratio 1.0 (0.9-2) Vitamin B12 (211-911) pg/ml Folate (>5.38) ng/ml TSH 6.310 H (0.300-4.500) uIu/ml Free T4 1.60 (0.8-1.6) ng/dl 09/03/18 09/03/18 Range/Units 15:48 15:48 WBC 18.24 H (4.8-10.8) K/uL RBC 3.91 L (4.2-5.4) M/uL Hgb 8.4 L (12.0-16.0) g/dL Hct 29.0 L (37-47) % MCV 74.2 L (80-100) fL MCH 21.5 L (25-34) pg MCHC 29.0 L (32-36) g/dL RDW Std Deviation 51.3 H (36.4-46.3) fL RDW Coeff of Chris 19.1 H (11.5-14.5) % Plt Count 259 (130-400) K/uL MPV 9.7 (7.4-10.4) fL Immature Gran % (Auto) 0.3 % Neut % (Auto) 86.9 % Lymph % (Auto) 5.7 % Mobile % (Auto) 6.8 % Eos % (Auto) 0.1 % Baso % (Auto) 0.2 % Immature Gran # (Auto) 0.05 H (0.00-0.02) K/uL Neut # (Auto) 15.86 H (1.4-6.5) K/uL Lymph # (Auto) 1.04 L (1.2-3.4) K/uL Mobile # (Auto) 1.24 H (0.11-0.59) K/uL Eos # (Auto) 0.02 (0-0.5) K/uL Baso # (Auto) 0.03 (0-0.2) K/uL Hypersegmented Neuts Hypochromasia Present PT 14.5 H (9.0-12.0) Seconds INR 1.5 H (0.9-1.1) APTT 31.5 H (21.0-31.0) Seconds PTT Ratio 1.2 Sodium (136-145) mmol/L Potassium (3.5-5.1) mmol/L Chloride (98-107) mmol/L Carbon Dioxide (21-32) mmol/L Anion Gap (3-11) BUN (7-18) mg/dl Creatinine (0.6-1.2) mg/dl Est Cr Clr Drug Dosing ml/min Est GFR ( Amer) Est GFR (Non-Af Amer) BUN/Creatinine Ratio (10-20) Glucose (70-99) mg/dl POC Glucose (70-99) Calcium (8.5-10.1) mg/dl Magnesium (1.8-2.4) mg/dl Iron (35-150) mcg/dl TIBC (250-450) mcg/dl Transferrin (200-360) mg/dl Transferrin % Sat (15-50) % Ferritin (8-388) ng/ml Total Bilirubin (0.1-1) mg/dl AST (15-37) U/L ALT (12-78) U/L Alkaline Phosphatase (45-117) U/L Troponin I (0-0.045) ng/ml Total Protein (6.4-8.2) gm/dl Albumin (3.4-5.0) gm/dl Globulin (2.5-4.0) gm/dl Albumin/Globulin Ratio (0.9-2) Vitamin B12 (211-911) pg/ml Folate (>5.38) ng/ml TSH (0.300-4.500) uIu/ml Free T4 (0.8-1.6) ng/dl _ (1) Anemia Anemia type: iron deficiency Iron deficiency anemia type: unspecified iron deficiency Qualified Code(s): D50.9 - Iron deficiency anemia, unspecified (2) Cellulitis Laterality: left Site of cellulitis: extremity Site of cellulitis of extremity: upper extremity Site of cellulitis of trunk: Qualified Code(s): L03.114 - Cellulitis of left upper limb (3) CHF (congestive heart failure) Heart failure chronicity: acute on chronic Heart failure type: combined systolic and diastolic Qualified Code(s): I50.43 - Acute on chronic combined systolic (congestive) and diastolic (congestive) heart failure (4) HTN (hypertension) Hypertension type: essential hypertension Qualified Code(s): I10 - Essential (primary) hypertension (5) Diabetes Diabetes mellitus type: type 2 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
[2018-09-04] MEDS ORDERED: INSULIN GLARGINE 100 UNIT/ML VIAL SC ONE (11:56)
[2018-09-04] MEDS ORDERED: VANCOMYCIN HCL 1,000 MG in SODIUM CHLORIDE 0.9% 250 ML IV SCH (13:30)
[2018-09-04] MEDS: FUROSEMIDE 40 MG in SYRINGE 0 ML IV SCH (16:42)
[2018-09-04] MEDS: cefTRIAXone SODIUM 1,000 MG/50 ML BAG IV SCH (19:27)
[2018-09-04] MEDS ORDERED: CARBOHYDRATES FOR HYPOGLYCEMIA PO PRN (20:34)
[2018-09-04] MEDS ORDERED: GLUCOSE 10 TABS/TUBE PO PRN (20:34)
[2018-09-04] MEDS ORDERED: GLUCAGON FOR INJ 1 MG VIAL SQ PRN (20:34)
[2018-09-04] MEDS ORDERED: GLUCOSE 40% GEL 15 GM TUBE PO PRN (20:34)
[2018-09-04] MEDS ORDERED: INSULIN GLARGINE SOLOSTAR 100 UNITS/ML 3 ML PEN SC ONE (20:45)
[2018-09-05] MEDS: LEVOTHYROXINE SODIUM 125 MCG TABLET PO SCH ×2 (05:45→06:39)
[2018-09-05] MEDS: DEXTROSE 50% 50 ML SYRINGE IV PRN (05:58)
[2018-09-05] MEDS: RIVAROXABAN 20 MG TAB PO SCH (08:02)
[2018-09-05] MEDS: CYANOCOBALAMIN 500 MCG TABLET (VITAMIN B-12) PO SCH (08:02)
[2018-09-05] MEDS: POTASSIUM CHLORIDE 10 MEQ TABCR PO SCH ×3 (08:02→20:45)
[2018-09-05] MEDS: METOPROLOL SUCC 50MG EXT REL TAB PO SCH ×3 (08:03→10:00)
[2018-09-05] MEDS: FUROSEMIDE 40 MG in SYRINGE 0 ML IV SCH (08:03)
[2018-09-05] MEDS: INSULIN GLARGINE SOLOSTAR 100 UNITS/ML 3 ML PEN SQ SCH (08:05)
[2018-09-05 08:08] LABS: BUN Creatinine Ratio 27.2 (10-20); Calcium 8.6 mg/dl (8.5-10.1); Creatinine Clr Calc Pharmacy 36.1 ml/min; Est GFR (African American) 67.1; Est GFR (Non-African American) 57.9; Potassium 3.2 mmol/L (3.5-5.1)
[2018-09-05] MEDS: INSULIN ASPART 100 UNITS/ML 3 ML PEN SC SCH ×4 (08:11→20:46)
[2018-09-05 08:35] LABS: Hematocrit (blood only) 26.9 % (37-47); Mean Corpuscular Hgb Conc 29.7 g/dL (32-36); Mean Corpuscular Volume 73.1 fL (80-100); Mean Platelet Volume 9.7 fL (7.4-10.4); Platelet Count 229 K/uL (130-400); RDW Coefficient of Variation 19.1 % (11.5-14.5); RDW Standard Deviation 51.2 fL (36.4-46.3); Red Blood Count 3.68 M/uL (4.2-5.4); White Blood Count 12.61 K/uL (4.8-10.8)
[2018-09-05 08:37] LABS: Basophils # (auto) 0.02 K/uL (0-0.2); Basophils % (auto) 0.2 %; Eosinophils # (auto) 0.01 K/uL (0-0.5); Eosinophils % (auto) 0.1 %; Hypochromasia Present; Immature Granulocytes # (auto) 0.04 K/uL (0.00-0.02); Immature Granulocytes % (auto) 0.3 %; Lymphocytes # (auto) 0.75 K/uL (1.2-3.4); Lymphocytes % (auto) 5.9 %; Microcytosis Present; Monocytes # (auto) 0.82 K/uL (0.11-0.59); Monocytes % (auto) 6.5 %; Neutrophils # (auto) 10.97 K/uL (1.4-6.5)
--- NOTE | 2018-09-05 08:45 | Cardiology Progress Note ---
Date of Service September 05, 2018 Assessment & Plan (1) CHF (congestive heart failure): Barbara Berg is an 88-year-old female with a history of A. fib, hypertension, and T2DM referred to the ED by her PCP for volume overload who presents with JVD, distal extremity edema, and new onset shortness of breath with increased exercise intolerance consistent with congestive heart failure. She has not had chest pain with any of her episodes. She presents with symptoms of volume overload with and ECHO shows EF 40-45%, RV mod dilation, decreased RV function, severe MR/TR, and increased RV/RA pressure .Recommend preload management with diuretics for CHF. 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 daily Continue metoprolol at current dose, hold addition of carvedilol. Her pressure is likely reduced in the setting of volume overload and afib, if she becomes tachy her pressures are likely to drop and actually improve with bblocker despite systolic in the 90s. Hold addition of lisinopril for now. She was previously on lisinopril 40 mg p.o. daily which was stopped around November 2016 when amlodipine was started in context of the hospital admission. Given that her creatinine is normal (1.05 today) and she has poorly controlled type 2 diabetes mellitus she would benefit from incorporating this into her blood pressure management at some point. Increased lasix to 80mg BID, had a 40mg dose a half hour ago will add an additional 1 time dose of 40mg to bring morning dose to 80mg. UOP 1L, but net only ~200 out yesterday. - Increased potassium repletion to 20meq BID. Mg 2.0. K=3.2 today. - BMP daily, attention to potassium with aggressive loop diuretic therapy. Continue rivaroxaban 20 mg p.o. daily 2/2 A. fib Recommend tightened diabetic control. She is insulin-dependent with A1c greater than 10 last month with a history of DKA. Glucose of g 335 this morning. BMP daily (2) Anemia: (3) Edema: Supervising Physician Co-Signing Physician Notes ATTENDING ADDENDUM (Dr. Cheng): Agree with assessment & plan by by Dr. Figueroa. 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 Uneventful night. Minimal diuresis (less than 1 liter negative). Physical examination: No distress. Vitals: Afebrile. BP borderline hypotensive this morning (recovering later in the morning), pulse still mildly tachycardic (just over 100 bpm), respirations 22 but unlabored. Skin: no ecchymoses or generalized lesions. HEENT: unremarkable. Neck: Jugular venous pulse elevated above the angle of the jaw, no carotid bruits. Lungs: Few basilar crackles, no wheezing, generally clear. Cardiac: regular rhythm with 3/6 apical.LSB holosystolic murmur, no diastolic murmur. Abdomen benign. Extremities: Trace/1+ pretibial edema, intact dorsalis pedis pulses, good capillary refill. Neurologic: normal affect, nonfocal. Data: Monitor shows persistent atrial fibrillation. Hemoglobin 8.0 with white count 12.6 and normal platelet count. Potassium 3.2, otherwise normal electrolytes. BUN 24 with creatinine 0.89. Glucose control improving (from 4-500 range to 200 range). Echocardiogram 09/04 showed EF 40-45% with mild to moderate global hypokinesis, moderately dilated right ventricle with reduced systolic function and evidence of RV volume overload, severe mitral and tricuspid regurgitation with moderate pulmonary hypertension. Compared with prior study, all of these findings were new. Impression: 1. New onset systolic/diastolic congestive heart failure: Since an echocardiogram just under 2 years ago she has developed significant mitral and tricuspid regurgitation with evidence of right heart volume overload. Etiology is uncertain, potentially simply progression of underlying valvular disease or alternatively fluid retention resulting in annular dilatation and functional mitral and tricuspid regurgitation secondary to cardiac dilation. No evidence of ischemic component at this time, but eventually workup should exclude this. Recommend more aggressive volume unloading, increase furosemide to 80 mg twice daily intravenously, further upward titration to achieve diuresis of 5-10 pounds. Replete potassium, monitor magnesium. Continue current beta-alisia dose, hold on carvedilol and lisinopril with relative hypotension. Would discontinue amlodipine and, once blood pressure allows, initiate lisinopril and/or carvedilol. 2.Atrial fibrillation with rapid ventricular response: Continue to titrate metoprolol for better rate control. Anticoagulated with Xarelto. 3. Severe mitral regurgitation/severe tricuspid regurgitation/moderate pulmonary hypertension: Reevaluate valve status after aggressive volume unloading, rate control of her atrial fibrillation, and afterload reduction. Quite possibly, improvement in heart size and hemodynamics may reduce the severity of her regurgitation. Recommend repeat echo as outpatient to reevaluate the role her valvular disease may play (primary or secondary). Subjective Feels OK today. Is not short of breath, dizzy, lightheaded, or having chest pain this morning. thinks the swelling in her legs is a little bit better today. Otherwise unchanged from yesterday. Voices no questions or concerns this morning. Physical Exam 2 Vital Signs (Past 24 Hours): Last Vital Signs Temp 36.3 C L 09/05/18 07:06 Pulse 99 H 09/05/18 06:36 Resp 16 09/05/18 07:06 BP 93/74 L 09/05/18 07:06 Pulse Ox 98 09/05/18 07:06 Physical Exam: General: A&Ox3, NAD.Cooperative. Vitals as above. Pulm: CTAB A&P. -wheezes, -rales, -rhonchi. Symmetrical chest rise. No increased work of breathing. No respiratory distress. Cardiac: Musical systolic murmur appreciated. Rate irregularly irregular. JVD continues to be present above the mandible bilaterally. 1+ pretibial pitting edema in the legs bilaterally. Abdominal: Nontender, nondistended, soft. BS present. Results & Data Laboratory Results Abnormal lab results 09/04/18 09/04/18 09/04/18 Range/Units 11:42 11:43 16:31 WBC (4.8-10.8) K/uL RBC (4.2-5.4) M/uL Hgb (12.0-16.0) g/dL Hct (37-47) % MCV (80-100) fL MCH (25-34) pg MCHC (32-36) g/dL RDW Std Deviation (36.4-46.3) fL RDW Coeff of Chris (11.5-14.5) % Immature Gran # (Auto) (0.00-0.02) K/uL Neut # (Auto) (1.4-6.5) K/uL Lymph # (Auto) (1.2-3.4) K/uL [place] # (Auto) (0.11-0.59) K/uL Potassium (3.5-5.1) mmol/L BUN (7-18) mg/dl BUN/Creatinine Ratio (10-20) Glucose (70-99) mg/dl POC Glucose 413 H* 395 H* 319 H (70-99) 09/04/18 09/04/18 09/05/18 Range/Units 20:15 20:17 05:52 WBC (4.8-10.8) K/uL RBC (4.2-5.4) M/uL Hgb (12.0-16.0) g/dL Hct (37-47) % MCV (80-100) fL MCH (25-34) pg MCHC (32-36) g/dL RDW Std Deviation (36.4-46.3) fL RDW Coeff of Chris (11.5-14.5) % Immature Gran # (Auto) (0.00-0.02) K/uL Neut # (Auto) (1.4-6.5) K/uL Lymph # (Auto) (1.2-3.4) K/uL [place] # (Auto) (0.11-0.59) K/uL Potassium (3.5-5.1) mmol/L BUN (7-18) mg/dl BUN/Creatinine Ratio (10-20) Glucose (70-99) mg/dl POC Glucose 402 H* 436 H* 50 L* (70-99) 09/05/18 09/05/18 09/05/18 Range/Units 06:15 06:17 07:14 WBC (4.8-10.8) K/uL RBC (4.2-5.4) M/uL Hgb (12.0-16.0) g/dL Hct (37-47) % MCV (80-100) fL MCH (25-34) pg MCHC (32-36) g/dL RDW Std Deviation (36.4-46.3) fL RDW Coeff of Chris (11.5-14.5) % Immature Gran # (Auto) (0.00-0.02) K/uL Neut # (Auto) (1.4-6.5) K/uL Lymph # (Auto) (1.2-3.4) K/uL [place] # (Auto) (0.11-0.59) K/uL Potassium (3.5-5.1) mmol/L BUN (7-18) mg/dl BUN/Creatinine Ratio (10-20) Glucose (70-99) mg/dl POC Glucose 273 H 240 H 167 H (70-99) 09/05/18 09/05/18 Range/Units 07:29 07:29 WBC 12.61 H (4.8-10.8) K/uL RBC 3.68 L (4.2-5.4) M/uL Hgb 8.0 L (12.0-16.0) g/dL Hct 26.9 L (37-47) % MCV 73.1 L (80-100) fL MCH 21.7 L (25-34) pg MCHC 29.7 L (32-36) g/dL RDW Std Deviation 51.2 H (36.4-46.3) fL RDW Coeff of Chris 19.1 H (11.5-14.5) % Immature Gran # (Auto) 0.04 H (0.00-0.02) K/uL Neut # (Auto) 10.97 H (1.4-6.5) K/uL Lymph # (Auto) 0.75 L (1.2-3.4) K/uL [place] # (Auto) 0.82 H (0.11-0.59) K/uL Potassium 3.2 L D (3.5-5.1) mmol/L BUN 24 H (7-18) mg/dl BUN/Creatinine Ratio 27.2 H (10-20) Glucose 151 H (70-99) mg/dl POC Glucose (70-99) Medications Administered Current Inpatient Medications Acetaminophen (Tylenol) 650 mg PO Q4H PRN PRN Reason: Pain or Fever Stop: 10/03/18 20:52 Al Hydrox/Mg Hydrox/Simethicone (Maalox) 15 ml PO Q4H PRN PRN Reason: Dyspepsia Stop: 10/03/18 20:52 Amlodipine Besylate (Norvasc) 2.5 mg PO DAILY [facility] Stop: 10/05/18 08:59 Last Admin: 09/05/18 08:03 Dose: 2.5 mg Cyanocobalamin (Vitamin B-12) 1,000 mcg PO DAILY [facility] Stop: 10/04/18 08:59 Last Admin: 09/05/18 08:02 Dose: 1,000 mcg Dextrose (Dextrose 50%) 25 - 50 ml IV UD PRN; Protocol PRN Reason: Hypoglycemia Protocol Stop: 10/04/18 20:33 Last Admin: 09/05/18 05:58 Dose: 50 ml Glucagon (Glucagen) 1 mg SQ UD PRN; Protocol PRN Reason: Hypoglycemia Protocol Stop: 10/04/18 20:33 Glucose (Dex4 Glucose) 4 - 8 tabs PO UD PRN; Protocol PRN Reason: Hypoglycemia Protocol Stop: 10/04/18 20:33 Glucose (Glucose 40%) 15 - 30 gm PO UD PRN; Protocol PRN Reason: Hypoglycemia Protocol Stop: 10/04/18 20:33 Ceftriaxone Sodium (Rocephin) 1,000 mg in 50 mls @ 100 mls/hr IV Q24H [facility]; Protocol Stop: 09/13/18 19:59 Last Infusion: 09/04/18 20:33 Dose: Infused Furosemide 80 mg/ Syringe 8 mls @ 4 mls/min IV BID17 [facility] Stop: 10/05/18 16:59 Vancomycin HCl 1,000 mg/ (Sodium Chloride) 270 mls @ 125 mls/hr IV Q18H [facility]; Protocol Stop: 09/13/18 20:59 Last Admin: 09/05/18 09:46 Dose: 125 mls/hr Insulin Aspart (Novolog Flexpen) 0 units SC ACHS [facility] Stop: 10/03/18 20:59 Last Admin: 09/05/18 08:11 Dose: Not Given Insulin Glargine (Lantus Solostar Pen) 30 units SQ DAILY [facility] Stop: 10/05/18 08:59 Last Admin: 09/05/18 08:05 Dose: 30 units Levothyroxine Sodium (Synthroid) 125 mcg PO DAILYBB [facility] Stop: 10/04/18 06:29 Last Admin: 09/05/18 06:39 Dose: Not Given Magnesium Hydroxide (Milk Of Magnesia) 30 ml PO Q12H PRN PRN Reason: Constipation Stop: 10/03/18 20:52 Metoprolol Succinate (Toprol Xl) 200 mg PO DAILY [facility] Stop: 10/05/18 08:59 Last Admin: 09/05/18 10:00 Dose: 200 mg Miscellaneous (Carbohydrates For Hypoglycemia) 15 - 30 gm PO UD PRN PRN Reason: Hypoglycemia Treatment Stop: 10/04/18 20:33 Miscellaneous Information (Consult) 1 ea N/A UD PRN PRN Reason: Consult Stop: 10/03/18 20:52 Morphine Sulfate (Morphine Sulfate) 2 mg IV Q30M PRN PRN Reason: Chest Pain Stop: 09/17/18 20:52 Nitroglycerin (Nitrostat) 0.4 mg SL UD PRN PRN Reason: Chest Pain Stop: 10/03/18 20:52 Ondansetron HCl (Zofran) 4 mg IV Q6H PRN PRN Reason: Nausea Stop: 10/03/18 20:52 Polyethylene Glycol (Miralax Powder Packet) 17 gm PO DAILY PRN PRN Reason: Constipation Stop: 10/03/18 20:52 Potassium Chloride (Klor-Con M10) 40 meq PO BID [facility] Stop: 10/05/18 09:59 Last Admin: 09/05/18 09:46 Dose: 40 meq Ranitidine HCl (Zantac) 150 mg PO BID [facility] Stop: 10/03/18 20:59 Last Admin: 09/05/18 08:02 Dose: 150 mg Rivaroxaban (Xarelto) 20 mg PO DAILY [facility] Stop: 10/04/18 08:59 Last Admin: 09/05/18 08:02 Dose: 20 mg _ (1) CHF (congestive heart failure) Heart failure chronicity: acute on chronic Heart failure type: combined systolic and diastolic Qualified Code(s): I50.43 - Acute on chronic combined systolic (congestive) and diastolic (congestive) heart failure (2) Anemia Anemia type: iron deficiency Bone marrow failure anemia type: Chronic kidney disease stage: Folate deficiency anemia type: Hemolytic anemia type: Iron deficiency anemia type: unspecified iron deficiency Other causes of anemia: Vitamin B12 deficiency anemia type: Qualified Code(s): D50.9 - Iron deficiency anemia, unspecified
[2018-09-05] MEDS ORDERED: POTASSIUM CHLORIDE 20 MEQ TABCR PO SCH (09:00)
[2018-09-05] MEDS ORDERED: AMLODIPINE BESYLATE 5 MG TAB PO SCH (09:00)
--- NOTE | 2018-09-05 09:20 | Pharmacy Report ---
Pharmacy Abx Dose Short Note - Date of Service September 05, 2018 - Assessment & Plan Assessment * 88 yo F admitted 09/03 for edema * On vancomycin and ceftriaxone for suspected cellulitis * WBC trending down. Afebrile * SCr trended down slightly today - likely minimal clinical significance Vancomycin * Goal trough 15-20 mcg/mL. Can sometimes target lower troughs for cellulitis, but would prefer to see significant clinical improvement in redness/edema first. * Random level of 12.9 mcg/mL is slightly subtherapeutic * OK to schedule vancomycin at this time Plan * Vancomycin 1000 mg IV q18h * Trough 09/06 @ 2130 Pharmacy will continue to follow and will adjust dose/frequency as necessary. Thank you.
[2018-09-05] MEDS ORDERED: FUROSEMIDE 40 MG in SYRINGE 0 ML IV ONE (09:30)
[2018-09-05] MEDS: VANCOMYCIN HCL 1,000 MG in SODIUM CHLORIDE 0.9% 250 ML IV SCH (09:46)
[2018-09-05] MEDS ORDERED: RIVAROXABAN 15 MG TAB PO SCH (16:30)
[2018-09-05] MEDS: FUROSEMIDE 80 MG in SYRINGE 0 ML IV SCH (17:10)
[2018-09-05] MEDS: ACETAMINOPHEN 325 MG TAB PO PRN (17:30)
--- NOTE | 2018-09-05 17:31 | Hospitalist Progress Note ---
Date of Service September 05, 2018 Assessment & Plan (1) Edema: This pt is an 88 y/o F Hx permanent AFib, HTN, DM II, hypothyroid, chronic microcytic anemia. The pt had been to her MD on the day of admission due to new onset of edema in her extremities and pain and redness in her L arm. She does not have a history of CHF and was not c/o CP, but was with SOB. Her MD felt that she was volume overloaded and suspected cellulitis of her arm. She was referred to the hospital therefore. Initial labs were notable for leukocytosis. A CXR suggests vascular congestion. Edema LEs from CHF and LUE secondary to cellulitis. Significantly improved today with continued IV diuresis and treatment of cellulitis. She was also recently started on amlodipine within the last month and this is also likely contributing to her lower extremity edema development With significant JVD on exam, vascular congestion on CXR. With acute on chronic diastolic CHF as below and her albumin is WNL -treat CHF and cellulitis as below (2) Cellulitis: LUE -cellulitis causing edema in the arm, no significant wounds but with thin skin, likely had break in skin With leukocytosis improving down to 12 K today, remains afebrile, technically with Sepsis given leukocytosis and tachycardia Erythema and edema significantly improved today -continue coverage for skin organisms with Ceftriaxone and Vanc and can likely switch to oral antibiotics in the next 1-2 days -follow clinically -follow CBC (3) Anemia: approximately at baseline at 8.0-this is been long-standing for years and she was previously treated with oral iron supplementation Microcytic Fe studies indicate Fe deficiency with ferritin 26, Trans sat 4% B12 and folate normal -check Hemoccult stool -I cannot find evidence in the outpatient or inpatient record of ever having endoscopies -transfuse if hgb <8.0 -will start po iron 325 mg p.o. twice daily -follow CBC (4) CHF (congestive heart failure): Acute on chronic combined systolic and diastolic CHF. The systolic component is new for her, but diastolic component is chronic. ECHO here with LVEF 40-45%, Right sided RV mod sys dysfunction, Pulm HTN, severe MR, TR With significant JVD, volume overload on exam and SAUL CXR with pulm edema and small effusions Possibly from tachyarrhythmia vs ischemia? She is diuresing but not a lot -Increase IV lasix to 80 mg bid as per cardiology recommendations -I/Os strict, daily weights -Continue low Na+ diet -Appreciate Cardiology input -continue Toprol at increased dose of 200mg daily if blood pressure can tolerate -will eventually need lisinopril added back on -Discontinue amlodipine for low blood pressures -She was also apparently on diltiazem as an outpatient which was not on her home medication reconciliation but was noted in her outpatient chart-this is also discontinued and is not appropriate in the setting of systolic CHF regardless -may need ischemic eval once acute CHF resolved (5) HTN (hypertension): BPs on the low side -continue Toprol -Discontinued amlodipine as above -Eventually add on CHERYL inhibitor if blood pressure can tolerate (6) Diabetes: With hyperglycemia here followed by hypoglycemia this morning after receiving extra Lantus last night for blood sugar in the 400s. She has history of multiple hospitalizations for DKA It appears she is also at times been on NPH as an outpatient but this is also not on her home med rec. Outpatient notes state that she has difficulty with her vision and with measuring insulin herself. HgbA1C was uncontrolled at 10.0% 1 month ago -continue Lantus 30 units daily in the morning and Novolog-continue correction factor of 15 and lowered her carb ratio to 1:8 -continue accuchecks,ADA diet (7) Hypothyroidism: TSH elevated here at 6 with normal FT4 -continue home dose SYnthroid and repeat TFTs in 4 weeks (8) Atrial fibrillation: Permanent, with rapid A. fib here with rates in the 130s rates continue to be uncontrolled at this time, may have contributed to CHF -Continue increased dose of Toprol XL at 200mg daily -continue Xarelto for anticoagulation but lower dose to renally appropriate dose of 15 mg once daily with dinner -She was on diltiazem previously but this has been discontinued (9) Mitral regurgitation: severe on ECHO here -may need ishemic eval in the future -control BP and watch volume status as above Cardiology following (10) Right-sided heart failure: Moderate RV dysfunction and Pulm HTN as above -possibly due to undiagnosed emphysema as seen on CXR? Diuresing as above (11) DVT prophylaxis: Xarelto 15 mg daily Dispo-remain on tele, will likely be in hospital for 3-5 days Subjective Patient tearful when I came into the room today saying that her bilateral upper arms were hurting after she was manipulated in the bed by nursing staff to slide her up. She reports she has very sensitive skin and upper arms. She also has been having chronic left upper back pain for many months and that was also painful. She denies shortness of breath. Telemetry with atrial fibrillation with rates in the low 100s-130s at times. Blood pressure was low this morning and she was also hypoglycemic and was given an amp of D50 after which her blood sugars monica to the 300s again. Last night, her blood sugars were in the 400s and she was given an extra dose of 10 units of Lantus by the nighttime house doctor. Review of Systems All systems reviewed & are unremarkable except as noted in HPI & below Physical Exam 2 Vital Signs (Past 24 Hours): Last Vital Signs Temp 36.5 C 09/05/18 15:12 Pulse 94 H 09/05/18 15:12 Resp 20 09/05/18 15:12 BP 120/59 L 09/05/18 15:12 Pulse Ox 98 09/05/18 15:25 Constitutional: WD/WN, vitals as above (Tearful) Eyes: PERRL, conjunctivae normal, anicteric sclerae ENMT: external ear and nose normal, oropharynx normal Neck: trachea midline, no thyromegaly Respiratory: normal respiratory effort; no respiratory distress Auscultation: + crackles (mild at bases); no rhonchi and no wheezes Cardiovascular: Rate/Rhythm: + tachycardic; + abnormal rhythm (irreg irreg) Vessels: + JVD (to angle of jaw) Extremities: + edema (Now only with trace pitting edema of bilat distal legs and distal left upper extremity- significantly improved from yesterday) Gastrointestinal (Abdomen): normal bowel sounds, soft, nontender, no hepatosplenomegaly Musculoskeletal: Extremities: extremities normal to inspection (With positive tenderness to palpation over the bilateral upper arms without ecchymosis or edema; positive tenderness palpation over the left side of mid back, no masses there); no cyanosis and no clubbing Skin: + erythema (Very minimal residual edema of the left forearm much improved from before) Neurologic: moves all extremities and awake; no focal motor deficits Psychiatric: Orientation: alert and oriented to person Affect: + tearful affect Results & Data Laboratory Results 09/05/18 09/05/18 09/05/18 Range/Units 20:46 16:24 10:45 WBC (4.8-10.8) K/uL RBC (4.2-5.4) M/uL Hgb (12.0-16.0) g/dL Hct (37-47) % MCV (80-100) fL MCH (25-34) pg MCHC (32-36) g/dL RDW Std Deviation (36.4-46.3) fL RDW Coeff of Chris (11.5-14.5) % Plt Count (130-400) K/uL MPV (7.4-10.4) fL Immature Gran % (Auto) % Neut % (Auto) % Lymph % (Auto) % [place] % (Auto) % Eos % (Auto) % Baso % (Auto) % Immature Gran # (Auto) (0.00-0.02) K/uL Neut # (Auto) (1.4-6.5) K/uL Lymph # (Auto) (1.2-3.4) K/uL [place] # (Auto) (0.11-0.59) K/uL Eos # (Auto) (0-0.5) K/uL Baso # (Auto) (0-0.2) K/uL Hypochromasia Microcytosis Sodium (136-145) mmol/L Potassium (3.5-5.1) mmol/L Chloride (98-107) mmol/L Carbon Dioxide (21-32) mmol/L Anion Gap (3-11) BUN (7-18) mg/dl Creatinine (0.6-1.2) mg/dl Est Cr Clr Drug Dosing ml/min Est GFR ( Amer) Est GFR (Non-Af Amer) BUN/Creatinine Ratio (10-20) Glucose (70-99) mg/dl POC Glucose 108 H 297 H 306 H (70-99) Calcium (8.5-10.1) mg/dl Magnesium (1.8-2.4) mg/dl Random Vancomycin mcg/ml 09/05/18 09/05/18 09/05/18 Range/Units 07:29 07:29 07:29 WBC 12.61 H (4.8-10.8) K/uL RBC 3.68 L (4.2-5.4) M/uL Hgb 8.0 L (12.0-16.0) g/dL Hct 26.9 L (37-47) % MCV 73.1 L (80-100) fL MCH 21.7 L (25-34) pg MCHC 29.7 L (32-36) g/dL RDW Std Deviation 51.2 H (36.4-46.3) fL RDW Coeff of Chris 19.1 H (11.5-14.5) % Plt Count 229 (130-400) K/uL MPV 9.7 (7.4-10.4) fL Immature Gran % (Auto) 0.3 % Neut % (Auto) 87.0 % Lymph % (Auto) 5.9 % [place] % (Auto) 6.5 % Eos % (Auto) 0.1 % Baso % (Auto) 0.2 % Immature Gran # (Auto) 0.04 H (0.00-0.02) K/uL Neut # (Auto) 10.97 H (1.4-6.5) K/uL Lymph # (Auto) 0.75 L (1.2-3.4) K/uL [place] # (Auto) 0.82 H (0.11-0.59) K/uL Eos # (Auto) 0.01 (0-0.5) K/uL Baso # (Auto) 0.02 (0-0.2) K/uL Hypochromasia Present Microcytosis Present Sodium 136 (136-145) mmol/L Potassium 3.2 L D (3.5-5.1) mmol/L Chloride 102 (98-107) mmol/L Carbon Dioxide 24 (21-32) mmol/L Anion Gap 10.0 (3-11) BUN 24 H (7-18) mg/dl Creatinine 0.89 (0.6-1.2) mg/dl Est Cr Clr Drug Dosing 36.1 ml/min Est GFR ( Amer) 67.1 Est GFR (Non-Af Amer) 57.9 BUN/Creatinine Ratio 27.2 H (10-20) Glucose 151 H (70-99) mg/dl POC Glucose (70-99) Calcium 8.6 (8.5-10.1) mg/dl Magnesium 2.0 (1.8-2.4) mg/dl Random Vancomycin 12.9 mcg/ml 09/05/18 09/05/18 09/05/18 Range/Units 07:14 06:17 06:15 WBC (4.8-10.8) K/uL RBC (4.2-5.4) M/uL Hgb (12.0-16.0) g/dL Hct (37-47) % MCV (80-100) fL MCH (25-34) pg MCHC (32-36) g/dL RDW Std Deviation (36.4-46.3) fL RDW Coeff of Chris (11.5-14.5) % Plt Count (130-400) K/uL MPV (7.4-10.4) fL Immature Gran % (Auto) % Neut % (Auto) % Lymph % (Auto) % [place] % (Auto) % Eos % (Auto) % Baso % (Auto) % Immature Gran # (Auto) (0.00-0.02) K/uL Neut # (Auto) (1.4-6.5) K/uL Lymph # (Auto) (1.2-3.4) K/uL [place] # (Auto) (0.11-0.59) K/uL Eos # (Auto) (0-0.5) K/uL Baso # (Auto) (0-0.2) K/uL Hypochromasia Microcytosis Sodium (136-145) mmol/L Potassium (3.5-5.1) mmol/L Chloride (98-107) mmol/L Carbon Dioxide (21-32) mmol/L Anion Gap (3-11) BUN (7-18) mg/dl Creatinine (0.6-1.2) mg/dl Est Cr Clr Drug Dosing ml/min Est GFR ( Amer) Est GFR (Non-Af Amer) BUN/Creatinine Ratio (10-20) Glucose (70-99) mg/dl POC Glucose 167 H 240 H 273 H (70-99) Calcium (8.5-10.1) mg/dl Magnesium (1.8-2.4) mg/dl Random Vancomycin mcg/ml 09/05/18 Range/Units 05:52 WBC (4.8-10.8) K/uL RBC (4.2-5.4) M/uL Hgb (12.0-16.0) g/dL Hct (37-47) % MCV (80-100) fL MCH (25-34) pg MCHC (32-36) g/dL RDW Std Deviation (36.4-46.3) fL RDW Coeff of Chris (11.5-14.5) % Plt Count (130-400) K/uL MPV (7.4-10.4) fL Immature Gran % (Auto) % Neut % (Auto) % Lymph % (Auto) % [place] % (Auto) % Eos % (Auto) % Baso % (Auto) % Immature Gran # (Auto) (0.00-0.02) K/uL Neut # (Auto) (1.4-6.5) K/uL Lymph # (Auto) (1.2-3.4) K/uL [place] # (Auto) (0.11-0.59) K/uL Eos # (Auto) (0-0.5) K/uL Baso # (Auto) (0-0.2) K/uL Hypochromasia Microcytosis Sodium (136-145) mmol/L Potassium (3.5-5.1) mmol/L Chloride (98-107) mmol/L Carbon Dioxide (21-32) mmol/L Anion Gap (3-11) BUN (7-18) mg/dl Creatinine (0.6-1.2) mg/dl Est Cr Clr Drug Dosing ml/min Est GFR ( Amer) Est GFR (Non-Af Amer) BUN/Creatinine Ratio (10-20) Glucose (70-99) mg/dl POC Glucose 50 L* (70-99) Calcium (8.5-10.1) mg/dl Magnesium (1.8-2.4) mg/dl Random Vancomycin mcg/ml _ (1) Diabetes Chronic kidney disease stage: Diabetes mellitus complication detail: Diabetes mellitus complication status: with unspecified complications Diabetes mellitus long term care phlebotomist insulin use: with long term care phlebotomist use Diabetes mellitus macular edema: Diabetes mellitus type: type 2 Diabetic retinopathy severity: Laterality: Proliferative retinopathy type: Qualified Code(s): E11.8 - Type 2 diabetes mellitus with unspecified complications; Z79.4 - USP (current) use of insulin (2) CHF (congestive heart failure) Heart failure chronicity: acute on chronic Heart failure type: combined systolic and diastolic Qualified Code(s): I50.43 - Acute on chronic combined systolic (congestive) and diastolic (congestive) heart failure (3) Anemia Anemia type: iron deficiency Bone marrow failure anemia type: Chronic kidney disease stage: Folate deficiency anemia type: Hemolytic anemia type: Iron deficiency anemia type: unspecified iron deficiency Other causes of anemia: Vitamin B12 deficiency anemia type: Qualified Code(s): D50.9 - Iron deficiency anemia, unspecified (4) Atrial fibrillation Atrial fibrillation type: chronic Qualified Code(s): I48.2 - Chronic atrial fibrillation (5) Cellulitis Laterality: left Site of cellulitis: extremity Site of cellulitis of extremity: upper extremity Site of cellulitis of trunk: Qualified Code(s): L03.114 - Cellulitis of left upper limb (6) Hypothyroidism Hypothyroidism type: acquired Qualified Code(s): E03.9 - Hypothyroidism, unspecified (7) HTN (hypertension) Hypertension type: essential hypertension Qualified Code(s): I10 - Essential (primary) hypertension
[2018-09-05] MEDS: cefTRIAXone SODIUM 1,000 MG/50 ML BAG IV SCH (20:45)
[2018-09-06] MEDS: VANCOMYCIN HCL 1,000 MG in SODIUM CHLORIDE 0.9% 250 ML IV SCH ×2 (03:51→22:57)
[2018-09-06] MEDS: LEVOTHYROXINE SODIUM 125 MCG TABLET PO SCH (06:01)
[2018-09-06 07:17] LABS: BUN Creatinine Ratio 31.3 (10-20); Calcium 8.2 mg/dl (8.5-10.1); Creatinine Clr Calc Pharmacy 31.8 ml/min; Est GFR (African American) 57.6; Est GFR (Non-African American) 49.7; Magnesium 1.9 mg/dl (1.8-2.4); Potassium 3.8 mmol/L (3.5-5.1)
[2018-09-06 07:30] LABS: Basophils # (auto) 0.02 K/uL (0-0.2); Basophils % (auto) 0.2 %; Eosinophils # (auto) 0.16 K/uL (0-0.5); Eosinophils % (auto) 1.6 %; Hematocrit (blood only) 26.9 % (37-47); Hemoglobin 7.7 g/dL (12.0-16.0); Immature Granulocytes # (auto) 0.04 K/uL (0.00-0.02); Immature Granulocytes % (auto) 0.4 %; Lymphocytes # (auto) 1.19 K/uL (1.2-3.4); Lymphocytes % (auto) 11.6 %; Mean Corpuscular Hgb Conc 28.6 g/dL (32-36); Mean Corpuscular Volume 73.3 fL (80-100); Mean Platelet Volume 9.4 fL (7.4-10.4); Monocytes % (auto) 12.7 %; Neutrophils # (auto) 7.55 K/uL (1.4-6.5); Neutrophils % (auto) 73.5 %; Platelet Count 224 K/uL (130-400); RDW Coefficient of Variation 19.2 % (11.5-14.5); Red Blood Count 3.67 M/uL (4.2-5.4); White Blood Count 10.26 K/uL (4.8-10.8)
[2018-09-06] MEDS: POTASSIUM CHLORIDE 10 MEQ TABCR PO SCH ×2 (07:44→20:22)
[2018-09-06] MEDS: CYANOCOBALAMIN 500 MCG TABLET (VITAMIN B-12) PO SCH (07:45)
[2018-09-06] MEDS: FUROSEMIDE 80 MG in SYRINGE 0 ML IV SCH ×2 (07:45→17:18)
[2018-09-06] MEDS: METOPROLOL SUCC 50MG EXT REL TAB PO SCH (07:45)
[2018-09-06] MEDS: FERROUS SULFATE 325 MG TAB PO SCH ×2 (07:45→17:18)
[2018-09-06] MEDS: INSULIN GLARGINE SOLOSTAR 100 UNITS/ML 3 ML PEN SQ SCH (07:46)
[2018-09-06] MEDS: INSULIN ASPART 100 UNITS/ML 3 ML PEN SC SCH ×4 (07:48→20:17)
[2018-09-06 07:54] LABS: Anisocytosis Present; Hypochromasia Present; Ovalocytes 1+; Polychromasia 1+
[2018-09-06] MEDS ORDERED: MAGNESIUM SULFATE / D5W 1 GM/100 ML BAG IV ONE (08:14)
[2018-09-06 08:52] LABS: Hematocrit (blood only) 28.7 % (37-47); Hemoglobin 8.2 g/dL (12.0-16.0)
--- NOTE | 2018-09-06 09:23 | Cardiology Progress Note ---
Date of Service September 06, 2018 Assessment & Plan (1) CHF (congestive heart failure): Patient admitted with acute on chronic combined CHF. She seems euvolemic at this time. Could consider converting her to oral diuretics. (2) Left ventricular dysfunction: Left ventricular ejection fraction of 40-45% on her current echocardiogram. (3) Afib: Tolerating metoprolol succinate at 200 mg daily. Ventricular response approximately 100 beats per minute. Could consider addition of low-dose digoxin to better control her ventricular response. Would not recommend increasing her beta-alisia dose at this time. (4) Anemia: Management per medical team. Subjective The patient is resting comfortably in the bedside chair without complaints of chest pain, dyspnea, or palpitations. Physical Exam 2 Vital Signs (Past 24 Hours): Last Vital Signs Temp 36.6 C 09/06/18 06:54 Pulse 96 H 09/06/18 06:54 Resp 16 09/06/18 06:54 BP 138/78 09/06/18 06:54 Pulse Ox 96 09/06/18 08:00 Physical Exam: In general is well-developed well-nourished elderly white female seated in a chair without complaints. HEENT exam is negative. Neck is supple with full carotid upstrokes. There are no obvious bruits. Jugular venous pressure is flat at 90. There is no thyromegaly. Cardiovascular exam reveals an irregular regular rhythm with distant heart sounds. A 2/6 systolic murmurs heard along left sternal border. Lungs are clear without rales, rhonchi or wheezes. Abdomen is soft without bruits. Extremities reveal intact radial artery pulses bilaterally. There is no peripheral edema. Results & Data Laboratory Results Laboratory Results - last 24 hr 09/05/18 09/05/18 09/05/18 10:45 16:24 20:46 WBC RBC Hgb Hct MCV MCH MCHC RDW Std Deviation RDW Coeff of Chris Plt Count MPV Immature Gran % (Auto) Neut % (Auto) Lymph % (Auto) [place] % (Auto) Eos % (Auto) Baso % (Auto) Immature Gran # (Auto) Neut # (Auto) Lymph # (Auto) [place] # (Auto) Eos # (Auto) Baso # (Auto) Polychromasia Hypochromasia Anisocytosis Ovalocytes Sodium Potassium Chloride Carbon Dioxide Anion Gap BUN Creatinine Est Cr Clr Drug Dosing Est GFR ( Amer) Est GFR (Non-Af Amer) BUN/Creatinine Ratio Glucose POC Glucose 306 H 297 H 108 H Calcium Magnesium 09/06/18 09/06/18 09/06/18 02:00 06:32 06:32 WBC 10.26 RBC 3.67 L Hgb 7.7 L Hct 26.9 L MCV 73.3 L MCH 21.0 L MCHC 28.6 L RDW Std Deviation 51.0 H RDW Coeff of Chris 19.2 H Plt Count 224 MPV 9.4 Immature Gran % (Auto) 0.4 Neut % (Auto) 73.5 Lymph % (Auto) 11.6 [place] % (Auto) 12.7 Eos % (Auto) 1.6 Baso % (Auto) 0.2 Immature Gran # (Auto) 0.04 H Neut # (Auto) 7.55 H Lymph # (Auto) 1.19 L [place] # (Auto) 1.30 H Eos # (Auto) 0.16 Baso # (Auto) 0.02 Polychromasia 1+ Hypochromasia Present Anisocytosis Present Ovalocytes 1+ Sodium 138 Potassium 3.8 D Chloride 103 Carbon Dioxide 26 Anion Gap 9.0 BUN 32 H Creatinine 1.01 Est Cr Clr Drug Dosing 31.8 Est GFR ( Amer) 57.6 Est GFR (Non-Af Amer) 49.7 BUN/Creatinine Ratio 31.3 H Glucose 102 H POC Glucose 90 Calcium 8.2 L Magnesium 1.9 09/06/18 09/06/18 07:30 08:24 WBC RBC Hgb 8.2 L Hct 28.7 L MCV MCH MCHC RDW Std Deviation RDW Coeff of Chris Plt Count MPV Immature Gran % (Auto) Neut % (Auto) Lymph % (Auto) [place] % (Auto) Eos % (Auto) Baso % (Auto) Immature Gran # (Auto) Neut # (Auto) Lymph # (Auto) [place] # (Auto) Eos # (Auto) Baso # (Auto) Polychromasia Hypochromasia Anisocytosis Ovalocytes Sodium Potassium Chloride Carbon Dioxide Anion Gap BUN Creatinine Est Cr Clr Drug Dosing Est GFR ( Amer) Est GFR (Non-Af Amer) BUN/Creatinine Ratio Glucose POC Glucose 113 H Calcium Magnesium Diagnostic Findings event sales manager notes atrial fibrillation with a ventricular response of approximately 100 bpm. _ (1) CHF (congestive heart failure) Heart failure chronicity: acute on chronic Heart failure type: combined systolic and diastolic Qualified Code(s): I50.43 - Acute on chronic combined systolic (congestive) and diastolic (congestive) heart failure (2) Anemia Anemia type: iron deficiency Bone marrow failure anemia type: Chronic kidney disease stage: Folate deficiency anemia type: Hemolytic anemia type: Iron deficiency anemia type: unspecified iron deficiency Other causes of anemia: Vitamin B12 deficiency anemia type: Qualified Code(s): D50.9 - Iron deficiency anemia, unspecified
--- NOTE | 2018-09-06 11:44 | Hospitalist Progress Note ---
Date of Service September 06, 2018 Assessment & Plan (1) Edema: This pt is an 88 y/o F Hx permanent AFib, HTN, DM II, hypothyroid, chronic microcytic anemia. The pt had been to her MD on the day of admission due to new onset of edema in her extremities and pain and redness in her L arm. She does not have a history of CHF and was not c/o CP, but was with SOB. Her MD felt that she was volume overloaded and suspected cellulitis of her arm. She was referred to the hospital therefore. Initial labs were notable for leukocytosis. A CXR suggests vascular congestion. Edema of the LEs is secondary to acute on chronic combined systolic and diastolic CHF and the edema of the LUE is secondary to cellulitis. She was also recently started on amlodipine within the last month and this is also likely contributing to her lower extremity edema development Lower extremity edema is now resolved with diuresis Left upper extremity edema still present but improved With significant JVD and vascular congestion on CXR upon admission which is all now improving. With acute on chronic diastolic CHF as below and her albumin is WNL -treat CHF and cellulitis as below (2) Cellulitis: LUE -cellulitis causing edema in the arm, no significant wounds but with thin skin, likely had break in skin With significant leukocytosis on admission which is now resolved Remains afebrile Technically with Sepsis given leukocytosis and tachycardia Erythema and edema continue to be improved today -continue coverage for skin organisms with Ceftriaxone and Vanc, both day #3- and can likely switch to oral antibiotics in the next 1-2 days -follow clinically -follow CBC (3) Anemia: Her hemoglobin is approximately at baseline at 8.0-this is been long- standing for years and she was previously treated with oral iron supplementation Hemoglobin this morning was 7.7 but upon repeat check was up to 8.2 Microcytic Fe studies indicate Fe deficiency with ferritin 26, Trans sat 4% B12 and folate normal -check Hemoccult stool-still pending -I cannot find evidence in the outpatient or inpatient record of ever having endoscopies. Patient cannot recall ever having endoscopies-I will check with her daughter to see if she is aware of this -transfuse if hgb <8.0-we will hold off for today -Started po iron 325 mg p.o. twice daily and will consider IV iron infusions prior to discharge -follow CBC -Given cardiac issues and advanced age, would not likely pursue endoscopies unless patient and family were really wanting to. However, she is on an anticoagulant and so this might become a long-standing issue of occult bleeding. (4) CHF (congestive heart failure): Acute on chronic combined systolic and diastolic CHF. The systolic component is new for her, but diastolic component is chronic. ECHO here with LVEF 40-45%, Right sided RV mod sys dysfunction, Pulm HTN, severe MR, TR With significant JVD, volume overload on exam and SAUL upon presentation CXR with pulm edema and small effusions Possibly from tachyarrhythmia vs ischemia? She is diuresing but not a lot-in fact, her weight has gone up since yesterday but is down 1.7 kg overall from admission. She is only -279 mL as her entire hospital stay. However, her lower extremity edema and JVD are improving -Continue IV lasix 80 mg bid at least for today -Follow BMP -Continue I/Os strict, daily weights -Continue low Na+ diet -Appreciate Cardiology input -continue Toprol at increased dose of 200mg daily -will eventually need lisinopril added back on if blood pressures can tolerate -Discontinued amlodipine for low blood pressures and lower extremity edema -She was also apparently on diltiazem as an outpatient which was not on her home medication reconciliation but was noted in her outpatient chart-this is also discontinued and is not appropriate in the setting of systolic CHF regardless -may need ischemic eval once acute CHF resolved-will discuss with cardiology (5) HTN (hypertension): BPs now improved and not as low -continue Toprol 200 mg daily -Discontinued amlodipine as above -Eventually add on CHERYL inhibitor if blood pressure can tolerate (6) Diabetes: With hyperglycemia here followed by hypoglycemia in the mornings after receiving extra dose of Lantus on the night of 09/04 for blood sugar in the 400s. She had a blood sugar of 90 at 2 in the morning last night. Blood sugars today are much improved and less labile, but do seem to increase with lunch and dinner She has history of multiple hospitalizations for DKA It appears she is also at times been on NPH as an outpatient but this is also not on her home med rec. Outpatient notes state that she has difficulty with her vision and with measuring insulin herself. HgbA1C was uncontrolled at 10.0% 1 month ago -Decrease Lantus back to 26 units daily in the morning and tighten the coverage of Novolog for the elevated daytime pre-meal glucose readings-decreased top range of correction to 140, lower the correction factor to 12, and continue her carb ratio to 1:8 -continue accuchecks,ADA diet (7) Hypothyroidism: TSH elevated here at 6 with normal FT4 -continue home dose SYnthroid and repeat TFTs in 4 weeks (8) Atrial fibrillation: Permanent, with rapid A. fib here with rates in the 130s which may have contributed to CHF Rates now much improved today in the 80s to low 100s -Continue increased dose of Toprol XL at 200mg daily -continue Xarelto for anticoagulation but lowered dose to renally appropriate dose of 15 mg once daily with dinner -She was on diltiazem previously but this has been discontinued due to systolic CHF and would not restart (9) Mitral regurgitation: severe on ECHO here -may need ishemic eval in the future -control BP and watch volume status as above Cardiology following (10) Right-sided heart failure: Moderate RV dysfunction and Pulm HTN as above -possibly due to undiagnosed emphysema as seen on CXR? Diuresing as above (11) DVT prophylaxis: Xarelto 15 mg daily Dispo-remain on tele, improving but likely needs at least 1-2 more days of IV antibiotics and diuresis prior to discharge PT/OT consultations placed to see if we will need SNF I have contacted her daughter by phone and left a voicemail to get more information about previous GI workup for her anemia and to give her an update-I am awaiting a phone call return Subjective Patient reports feeling better today, she has no further pain in her upper arms or her left upper back since yesterday after receiving Tylenol. She denies shortness of breath but remains on oxygen. No chest pain. She moved her bowels twice today. She has not noted any blood in her stool, however she reports that she has very poor vision and cannot see her stool. She cannot recall ever having a colonoscopy or EGD. She recalls having a blood transfusion a few years ago but does not know why she had it. Telemetry with atrial fibrillation with improved rates down to the 80s-90s, some PVCs. Review of Systems All systems reviewed & are unremarkable except as noted in HPI & below Physical Exam 2 Vital Signs (Past 24 Hours): Last Vital Signs Temp 36.8 C 09/06/18 10:58 Pulse 79 09/06/18 10:58 Resp 17 09/06/18 10:58 BP 116/60 09/06/18 10:58 Pulse Ox 99 09/06/18 10:58 Constitutional: WD/WN, vitals as above Eyes: PERRL, conjunctivae normal, anicteric sclerae ENMT: Ears: no hearing impairment Neck: trachea midline, no thyromegaly Respiratory: normal respiratory effort; no respiratory distress Auscultation: + crackles (mild at bases); no rhonchi and no wheezes Cardiovascular: Rate/Rhythm: regular rate; + abnormal rhythm (irreg irreg) Heart Sounds: no murmur Extremities: no edema (In the lower extremities, but still with 1+ pitting edema in the left forearm) Gastrointestinal (Abdomen): normal bowel sounds, soft, nontender, no hepatosplenomegaly Musculoskeletal: Extremities: no cyanosis and no clubbing Skin: no rashes, warm and dry + erythema (Very minimal residual edema of the left forearm much improved from before) Neurologic: moves all extremities and awake; no focal motor deficits Psychiatric: A+Ox3, euthymic affect Orientation: alert and oriented to person Results & Data Laboratory Results 09/06/18 09/06/18 09/06/18 Range/Units 11:03 08:24 08:24 WBC (4.8-10.8) K/uL RBC (4.2-5.4) M/uL Hgb 8.2 L (12.0-16.0) g/dL Hct 28.7 L (37-47) % MCV (80-100) fL MCH (25-34) pg MCHC (32-36) g/dL RDW Std Deviation (36.4-46.3) fL RDW Coeff of Chris (11.5-14.5) % Plt Count (130-400) K/uL MPV (7.4-10.4) fL Immature Gran % (Auto) % Neut % (Auto) % Lymph % (Auto) % [place] % (Auto) % Eos % (Auto) % Baso % (Auto) % Immature Gran # (Auto) (0.00-0.02) K/uL Neut # (Auto) (1.4-6.5) K/uL Lymph # (Auto) (1.2-3.4) K/uL [place] # (Auto) (0.11-0.59) K/uL Eos # (Auto) (0-0.5) K/uL Baso # (Auto) (0-0.2) K/uL Polychromasia Hypochromasia Anisocytosis Ovalocytes Sodium (136-145) mmol/L Potassium (3.5-5.1) mmol/L Chloride (98-107) mmol/L Carbon Dioxide (21-32) mmol/L Anion Gap (3-11) BUN (7-18) mg/dl Creatinine (0.6-1.2) mg/dl Est Cr Clr Drug Dosing ml/min Est GFR ( Amer) Est GFR (Non-Af Amer) BUN/Creatinine Ratio (10-20) Glucose (70-99) mg/dl POC Glucose 268 H (70-99) Calcium (8.5-10.1) mg/dl Magnesium (1.8-2.4) mg/dl Blood Type O Positive Antibody Screen NEGATIVE 09/06/18 09/06/18 09/06/18 Range/Units 07:30 06:32 06:32 WBC 10.26 (4.8-10.8) K/uL RBC 3.67 L (4.2-5.4) M/uL Hgb 7.7 L (12.0-16.0) g/dL Hct 26.9 L (37-47) % MCV 73.3 L (80-100) fL MCH 21.0 L (25-34) pg MCHC 28.6 L (32-36) g/dL RDW Std Deviation 51.0 H (36.4-46.3) fL RDW Coeff of Chris 19.2 H (11.5-14.5) % Plt Count 224 (130-400) K/uL MPV 9.4 (7.4-10.4) fL Immature Gran % (Auto) 0.4 % Neut % (Auto) 73.5 % Lymph % (Auto) 11.6 % [place] % (Auto) 12.7 % Eos % (Auto) 1.6 % Baso % (Auto) 0.2 % Immature Gran # (Auto) 0.04 H (0.00-0.02) K/uL Neut # (Auto) 7.55 H (1.4-6.5) K/uL Lymph # (Auto) 1.19 L (1.2-3.4) K/uL [place] # (Auto) 1.30 H (0.11-0.59) K/uL Eos # (Auto) 0.16 (0-0.5) K/uL Baso # (Auto) 0.02 (0-0.2) K/uL Polychromasia 1+ Hypochromasia Present Anisocytosis Present Ovalocytes 1+ Sodium 138 (136-145) mmol/L Potassium 3.8 D (3.5-5.1) mmol/L Chloride 103 (98-107) mmol/L Carbon Dioxide 26 (21-32) mmol/L Anion Gap 9.0 (3-11) BUN 32 H (7-18) mg/dl Creatinine 1.01 (0.6-1.2) mg/dl Est Cr Clr Drug Dosing 31.8 ml/min Est GFR ( Amer) 57.6 Est GFR (Non-Af Amer) 49.7 BUN/Creatinine Ratio 31.3 H (10-20) Glucose 102 H (70-99) mg/dl POC Glucose 113 H (70-99) Calcium 8.2 L (8.5-10.1) mg/dl Magnesium 1.9 (1.8-2.4) mg/dl Blood Type Antibody Screen 09/06/18 09/05/18 09/05/18 Range/Units 02:00 20:46 16:24 WBC (4.8-10.8) K/uL RBC (4.2-5.4) M/uL Hgb (12.0-16.0) g/dL Hct (37-47) % MCV (80-100) fL MCH (25-34) pg MCHC (32-36) g/dL RDW Std Deviation (36.4-46.3) fL RDW Coeff of Chris (11.5-14.5) % Plt Count (130-400) K/uL MPV (7.4-10.4) fL Immature Gran % (Auto) % Neut % (Auto) % Lymph % (Auto) % [place] % (Auto) % Eos % (Auto) % Baso % (Auto) % Immature Gran # (Auto) (0.00-0.02) K/uL Neut # (Auto) (1.4-6.5) K/uL Lymph # (Auto) (1.2-3.4) K/uL [place] # (Auto) (0.11-0.59) K/uL Eos # (Auto) (0-0.5) K/uL Baso # (Auto) (0-0.2) K/uL Polychromasia Hypochromasia Anisocytosis Ovalocytes Sodium (136-145) mmol/L Potassium (3.5-5.1) mmol/L Chloride (98-107) mmol/L Carbon Dioxide (21-32) mmol/L Anion Gap (3-11) BUN (7-18) mg/dl Creatinine (0.6-1.2) mg/dl Est Cr Clr Drug Dosing ml/min Est GFR ( Amer) Est GFR (Non-Af Amer) BUN/Creatinine Ratio (10-20) Glucose (70-99) mg/dl POC Glucose 90 108 H 297 H (70-99) Calcium (8.5-10.1) mg/dl Magnesium (1.8-2.4) mg/dl Blood Type Antibody Screen _ (1) Edema Edema type: localized Qualified Code(s): R60.0 - Localized edema (2) Cellulitis Laterality: left Site of cellulitis: extremity Site of cellulitis of extremity: upper extremity Site of cellulitis of trunk: Qualified Code(s): L03.114 - Cellulitis of left upper limb (3) Anemia Anemia type: iron deficiency Bone marrow failure anemia type: Chronic kidney disease stage: Folate deficiency anemia type: Hemolytic anemia type: Iron deficiency anemia type: unspecified iron deficiency Other causes of anemia: Vitamin B12 deficiency anemia type: Qualified Code(s): D50.9 - Iron deficiency anemia, unspecified (4) CHF (congestive heart failure) Heart failure chronicity: acute on chronic Heart failure type: combined systolic and diastolic Qualified Code(s): I50.43 - Acute on chronic combined systolic (congestive) and diastolic (congestive) heart failure (5) HTN (hypertension) Hypertension type: essential hypertension Qualified Code(s): I10 - Essential (primary) hypertension (6) Diabetes Diabetes mellitus type: type 2 Diabetes mellitus rn long term care insulin use: with rn long term care use Diabetes mellitus complication status: with unspecified complications Diabetes mellitus complication detail: Diabetic retinopathy severity: Proliferative retinopathy type: Diabetes mellitus macular edema: Laterality: Chronic kidney disease stage: Qualified Code(s): E11.8 - Type 2 diabetes mellitus with unspecified complications; 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
[2018-09-06] MEDS: RIVAROXABAN 15 MG TAB PO SCH (17:18)
[2018-09-06] MEDS: cefTRIAXone SODIUM 1,000 MG/50 ML BAG IV SCH (20:21)
[2018-09-06] MEDS ORDERED: VANCOMYCIN TROUGH ONE (21:30)
[2018-09-07] MEDS: LEVOTHYROXINE SODIUM 125 MCG TABLET PO SCH (06:29)
[2018-09-07 08:44] LABS: Hematocrit (blood only) 31.8 % (37-47); Hemoglobin 9.1 g/dL (12.0-16.0); Mean Corpuscular Hgb Conc 28.6 g/dL (32-36); Mean Corpuscular Volume 74.6 fL (80-100); Mean Platelet Volume 9.6 fL (7.4-10.4); Nucleated RBC # (auto) 0.03 K/uL (0-0); Nucleated RBC % (auto) 0.3 %; Platelet Count 296 K/uL (130-400); RDW Coefficient of Variation 19.5 % (11.5-14.5); RDW Standard Deviation 51.8 fL (36.4-46.3); Red Blood Count 4.26 M/uL (4.2-5.4); White Blood Count 9.64 K/uL (4.8-10.8)
[2018-09-07 09:04] LABS: BUN Creatinine Ratio 32.9 (10-20); Calcium 8.8 mg/dl (8.5-10.1); Creatinine Clr Calc Pharmacy 31.2 ml/min; Est GFR (African American) 56.2; Est GFR (Non-African American) 48.5; Magnesium 2.2 mg/dl (1.8-2.4); Potassium 3.8 mmol/L (3.5-5.1)
[2018-09-07 09:24] LABS: Anisocytosis Present; Basophils # (auto) 0.04 K/uL (0-0.2); Basophils % (auto) 0.4 %; Eosinophils # (auto) 0.16 K/uL (0-0.5); Eosinophils % (auto) 1.7 %; Hypochromasia Present; Immature Granulocytes # (auto) 0.03 K/uL (0.00-0.02); Immature Granulocytes % (auto) 0.3 %; Lymphocytes # (auto) 1.25 K/uL (1.2-3.4); Monocytes # (auto) 1.48 K/uL (0.11-0.59); Monocytes % (auto) 15.4 %; Neutrophils # (auto) 6.68 K/uL (1.4-6.5); Neutrophils % (auto) 69.2 %; Ovalocytes 1+; Polychromasia 1+
[2018-09-07] MEDS: CYANOCOBALAMIN 500 MCG TABLET (VITAMIN B-12) PO SCH (09:41)
[2018-09-07] MEDS: METOPROLOL SUCC 50MG EXT REL TAB PO SCH (09:41)
[2018-09-07] MEDS: FUROSEMIDE 80 MG in SYRINGE 0 ML IV SCH (09:41)
[2018-09-07] MEDS: POTASSIUM CHLORIDE 10 MEQ TABCR PO SCH ×2 (09:42→21:28)
[2018-09-07] MEDS: FERROUS SULFATE 325 MG TAB PO SCH ×2 (09:42→17:36)
[2018-09-07] MEDS: INSULIN ASPART 100 UNITS/ML 3 ML PEN SC SCH ×4 (09:43→20:52)
--- NOTE | 2018-09-07 09:43 | Cardiology Progress Note ---
Date of Service September 07, 2018 Assessment & Plan (1) CHF (congestive heart failure): The patient was admitted with acute on chronic combined CHF. Nearly euvolemic at this time. Could consider switch to oral diuretics. (2) Left ventricular dysfunction: Mild left ventricular dysfunction with an ejection fraction of 40-45% on her echocardiogram. (3) Afib: Tolerating increased dose of metoprolol succinate at 200 mg daily. Would consider the addition of low-dose digoxin to better control her ventricular response. (4) Anemia: Management per medical team. Subjective The patient is resting comfortable be at the bedside. She denies chest pain, dyspnea, palpitations. Much better spirits today. Physical Exam 2 Vital Signs (Past 24 Hours): Last Vital Signs Temp 36.4 C L 09/07/18 07:11 Pulse 82 09/07/18 07:11 Resp 20 09/07/18 07:11 BP 139/96 09/07/18 07:11 Pulse Ox 99 09/07/18 07:11 Physical Exam: In general is well-developed well-nourished elderly white female seated in a chair without complaints. HEENT exam is negative. Neck is supple with full carotid upstrokes. There are no obvious bruits. Jugular venous pressure is 8 cm at 90. There is no thyromegaly. Cardiovascular exam reveals an irregular regular rhythm with distant heart sounds. A 2/6 systolic murmurs heard along left sternal border. Lungs noted few bibasilar rales. Abdomen is soft without bruits. Extremities reveal intact radial artery pulses bilaterally. There is no peripheral edema. Results & Data Laboratory Results Laboratory Results - last 24 hr 09/06/18 09/06/18 09/06/18 11:03 16:15 20:14 WBC RBC Hgb Hct MCV MCH MCHC RDW Std Deviation RDW Coeff of Chris Plt Count MPV Immature Gran % (Auto) Neut % (Auto) Lymph % (Auto) [place] % (Auto) Eos % (Auto) Baso % (Auto) Immature Gran # (Auto) Neut # (Auto) Lymph # (Auto) [place] # (Auto) Eos # (Auto) Baso # (Auto) Absolute Nucleated RBC Nucleated RBC % (auto) Polychromasia Hypochromasia Anisocytosis Ovalocytes Sodium Potassium Chloride Carbon Dioxide Anion Gap BUN Creatinine Est Cr Clr Drug Dosing Est GFR ( Amer) Est GFR (Non-Af Amer) BUN/Creatinine Ratio Glucose POC Glucose 268 H 220 H 123 H Calcium Magnesium Vancomycin Trough 09/06/18 09/07/18 09/07/18 21:30 08:08 08:08 WBC 9.64 RBC 4.26 Hgb 9.1 L Hct 31.8 L MCV 74.6 L MCH 21.4 L MCHC 28.6 L RDW Std Deviation 51.8 H RDW Coeff of Chris 19.5 H Plt Count 296 MPV 9.6 Immature Gran % (Auto) 0.3 Neut % (Auto) 69.2 Lymph % (Auto) 13.0 [place] % (Auto) 15.4 Eos % (Auto) 1.7 Baso % (Auto) 0.4 Immature Gran # (Auto) 0.03 H Neut # (Auto) 6.68 H Lymph # (Auto) 1.25 [place] # (Auto) 1.48 H Eos # (Auto) 0.16 Baso # (Auto) 0.04 Absolute Nucleated RBC 0.03 H Nucleated RBC % (auto) 0.3 Polychromasia 1+ Hypochromasia Present Anisocytosis Present Ovalocytes 1+ Sodium 136 Potassium 3.8 Chloride 100 Carbon Dioxide 27 Anion Gap 9.0 BUN 34 H Creatinine 1.03 Est Cr Clr Drug Dosing 31.2 Est GFR ( Amer) 56.2 Est GFR (Non-Af Amer) 48.5 BUN/Creatinine Ratio 32.9 H Glucose 116 H POC Glucose Calcium 8.8 Magnesium 2.2 Vancomycin Trough 17.1 Diagnostic Findings patient monitor notes atrial fibrillation with ventricular response averaging 100 beats per minute. _ (1) CHF (congestive heart failure) Heart failure chronicity: acute on chronic Heart failure type: combined systolic and diastolic Qualified Code(s): I50.43 - Acute on chronic combined systolic (congestive) and diastolic (congestive) heart failure (2) Anemia Anemia type: iron deficiency Bone marrow failure anemia type: Chronic kidney disease stage: Folate deficiency anemia type: Hemolytic anemia type: Iron deficiency anemia type: unspecified iron deficiency Other causes of anemia: Vitamin B12 deficiency anemia type: Qualified Code(s): D50.9 - Iron deficiency anemia, unspecified
[2018-09-07] MEDS: INSULIN GLARGINE SOLOSTAR 100 UNITS/ML 3 ML PEN SQ SCH (09:44)
--- NOTE | 2018-09-07 12:50 | Pharmacy Report ---
Pharmacy Abx Dose Short Note - Date of Service September 07, 2018 - Assessment & Plan Assessment * 88 yo F admitted 09/03 for edema * On vancomycin and ceftriaxone for suspected cellulitis * Leukocytosis resolved. Remains afebrile. * SCr stable Vancomycin * Goal trough 15-20 mcg/mL * Trough of 17.1 mcg/mL is therapeutic * Repeat trough in 2 days Plan * Continue vancomycin 1000 mg IV q18h * Trough 09/09 @ 0330 Pharmacy will continue to follow and will adjust dose/frequency as necessary. Thank you.
[2018-09-07] MEDS: VANCOMYCIN HCL 1,000 MG in SODIUM CHLORIDE 0.9% 250 ML IV SCH (16:13)
[2018-09-07] MEDS: RIVAROXABAN 15 MG TAB PO SCH (16:13)
--- NOTE | 2018-09-07 16:35 | Hospitalist Progress Note ---
Date of Service September 07, 2018 Assessment & Plan (1) Edema: This pt is an 88 y/o F Hx permanent AFib, HTN, DM II, hypothyroid, chronic microcytic anemia. The pt had been to her MD on the day of admission due to new onset of edema in her extremities and pain and redness in her L arm. She does not have a history of CHF and was not c/o CP, but was with SOB. Her MD felt that she was volume overloaded and suspected cellulitis of her arm. She was referred to the hospital therefore. Initial labs were notable for leukocytosis. A CXR suggested pulmonary vascular congestion. Edema of the LEs is secondary to acute on chronic combined systolic and diastolic CHF and the edema of the LUE is secondary to cellulitis. She was also recently started on amlodipine within the last month and this is also likely contributing to her lower extremity edema development Lower extremity edema is now resolved with diuresis Left upper extremity edema still present but much improved With significant JVD and vascular congestion on CXR upon admission which is all now continuing to improve. With acute on chronic diastolic CHF as below and her albumin is WNL -treat CHF and cellulitis as below (2) Cellulitis: LUE -cellulitis causing edema in the arm, no significant wounds but with thin skin, likely had break in skin With significant leukocytosis on admission which is now resolved Remains afebrile Technically with Sepsis given leukocytosis and tachycardia Erythema and edema are much improved -continue coverage for skin organisms with Ceftriaxone and Vanc, both day #4- and can likely switch to oral antibiotics tomorrow upon discharge--> will send out on keflex -follow clinically -follow CBC (3) Anemia: Her hemoglobin is approximately at baseline at 8.0-9.0-this has been long- standing for years and she was previously treated with oral iron supplementation Hemoglobin was likely spuriously down to 7.7 at one point during admission, but is now at 9.1 Microcytic Fe studies indicate Fe deficiency with ferritin 26, Trans sat 4% B12 and folate normal Hemoccult stool is negative now and also in 06/2018 -I cannot find evidence in the outpatient or inpatient record of ever having endoscopies. Patient and her daughter cannot recall ever having endoscopies -transfuse if hgb <8.0 -Started po iron 325 mg p.o. twice daily -follow CBC -Given cardiac issues and advanced age, would not likely pursue endoscopies unless patient and family were really wanting to. However, she is on an anticoagulant and so this might become a long-standing issue of occult bleeding. -should follow CBC frequently as outpt to monitor for need for transfusion or IV iron infusions (4) CHF (congestive heart failure): Acute on chronic combined systolic and diastolic CHF. The systolic component is new for her, but diastolic component is chronic. ECHO here with LVEF 40-45%, Right sided RV mod sys dysfunction, Pulm HTN, severe MR, TR With significant JVD, volume overload on exam and SAUL upon presentation CXR with pulm edema and small effusions Possibly from tachyarrhythmia vs ischemia? She is diuresing now and is clinically improved -received IV lasix bid for multiple days -convert to lasix 40mg po bid -Follow BMP -Continue I/Os strict, daily weights -Continue low Na+ diet -Appreciate Cardiology input -continue Toprol at increased dose of 200mg daily -will eventually need lisinopril added back on if blood pressures can tolerate -Discontinued amlodipine for low blood pressures and lower extremity edema -She was also apparently on diltiazem as an outpatient which was not on her home medication reconciliation but was noted in her outpatient chart-this is also discontinued and is not appropriate in the setting of systolic CHF regardless -may need ischemic eval once acute CHF resolved-discussed with Cardiology--> they will reassess her as an outpt as low EF may be from tachyarrhythmia (5) HTN (hypertension): BPs controlled -continue Toprol 200 mg daily -Discontinued amlodipine as above -Eventually add on CHERYL inhibitor if blood pressure can tolerate (6) Diabetes: With hyperglycemia and hypoglycemia -very labile Glucose does seem to increase with lunch and dinner only She has history of multiple hospitalizations for DKA It appears she is also at times been on NPH as an outpatient but this is also not on her home med rec. Outpatient notes state that she has difficulty with her vision and with measuring insulin herself. HgbA1C was uncontrolled at 10.0% 1 month ago -continue Lantus 26 units daily in the morning and increase carb coverage ratio of Novolog for the elevated daytime pre-meal glucose readings -continue accuchecks,ADA diet (7) Hypothyroidism: TSH elevated here at 6 with normal FT4 -continue home dose SYnthroid and repeat TFTs in 4 weeks (8) Atrial fibrillation: Permanent, with rapid A. fib here with rates in the 130s which may have contributed to CHF Rates continue to be elevated here especially with minimal activity -Continue increased dose of Toprol XL at 200mg daily -continue Xarelto for anticoagulation but lowered dose to renally appropriate dose of 15 mg once daily with dinner -She was on diltiazem previously but this has been discontinued due to systolic CHF and would not restart -discussed with Cardio--> load with digoxin 0.25mg IV x 1 now and then start digoxin 0.125mg po qAM -continue tele monitoring (9) Mitral regurgitation: severe on ECHO here -may need ishemic eval in the future -control BP and watch volume status as above Cardiology following (10) Right-sided heart failure: Moderate RV dysfunction and Pulm HTN as above -possibly due to undiagnosed emphysema as seen on CXR? Diuresing as above (11) DVT prophylaxis: Xarelto 15 mg daily Dispo-remain on tele, possible discharge by tomorrow PT/OT consultations recommend return to [facility] Discussed her plan of care with her son at the bedside Subjective Pt feeling fine today, has no further pain in the LUE. Denies SOB, is not requiring O2. Denies chest pain. Denies lightheadedness. She is ambulating around the room. Tele with A-fib with rates in the 90s-130s with minimal activity. I discussed the case with the Take Out Waitress today. Review of Systems All systems reviewed & are unremarkable except as noted in HPI & below Physical Exam 2 Vital Signs (Past 24 Hours): Last Vital Signs Temp 36.7 C 09/07/18 15:23 Pulse 86 09/07/18 15:23 Resp 16 09/07/18 15:23 BP 121/65 09/07/18 15:23 Pulse Ox 92 09/07/18 15:23 Constitutional: WD/WN, vitals as above Eyes: PERRL, conjunctivae normal, anicteric sclerae ENMT: external ear and nose normal, oropharynx normal Ears: no hearing impairment Neck: trachea midline, no thyromegaly Respiratory: normal respiratory effort; no respiratory distress Auscultation: + crackles (mild at bases); no rhonchi and no wheezes Cardiovascular: Rate/Rhythm: + tachycardic; + abnormal rhythm (irreg irreg) Heart Sounds: no murmur Extremities: no edema (In the lower extremities, but still with trace+ pitting edema in the left forearm-all much improved from previous) Gastrointestinal (Abdomen): normal bowel sounds, soft, nontender, no hepatosplenomegaly Musculoskeletal: Extremities: + extremities abnormal to inspection (LUE with very minimal erythema and pitting edema mostly in tricep and elbow region now, much improved in forearm), no cyanosis and no clubbing Skin: no rashes, warm and dry + erythema (Very minimal residual edema of the left forearm much improved from before) Neurologic: moves all extremities and awake; no focal motor deficits Psychiatric: A+Ox3, euthymic affect Results & Data Laboratory Results 09/07/18 09/07/18 09/07/18 Range/Units 21:00 20:23 16:28 WBC (4.8-10.8) K/uL RBC (4.2-5.4) M/uL Hgb (12.0-16.0) g/dL Hct (37-47) % MCV (80-100) fL MCH (25-34) pg MCHC (32-36) g/dL RDW Std Deviation (36.4-46.3) fL RDW Coeff of Chris (11.5-14.5) % Plt Count (130-400) K/uL MPV (7.4-10.4) fL Immature Gran % (Auto) % Neut % (Auto) % Lymph % (Auto) % [place] % (Auto) % Eos % (Auto) % Baso % (Auto) % Immature Gran # (Auto) (0.00-0.02) K/uL Neut # (Auto) (1.4-6.5) K/uL Lymph # (Auto) (1.2-3.4) K/uL [place] # (Auto) (0.11-0.59) K/uL Eos # (Auto) (0-0.5) K/uL Baso # (Auto) (0-0.2) K/uL Absolute Nucleated RBC (0-0) K/uL Nucleated RBC % (auto) % Polychromasia Hypochromasia Anisocytosis Ovalocytes Sodium (136-145) mmol/L Potassium (3.5-5.1) mmol/L Chloride (98-107) mmol/L Carbon Dioxide (21-32) mmol/L Anion Gap (3-11) BUN (7-18) mg/dl Creatinine (0.6-1.2) mg/dl Est Cr Clr Drug Dosing ml/min Est GFR ( Amer) Est GFR (Non-Af Amer) BUN/Creatinine Ratio (10-20) Glucose (70-99) mg/dl POC Glucose 111 H 317 H (70-99) Calcium (8.5-10.1) mg/dl Magnesium (1.8-2.4) mg/dl Stool Occult Bld Scrn Negative (Negative) 09/07/18 09/07/18 09/07/18 Range/Units 11:05 08:08 08:08 WBC 9.64 (4.8-10.8) K/uL RBC 4.26 (4.2-5.4) M/uL Hgb 9.1 L (12.0-16.0) g/dL Hct 31.8 L (37-47) % MCV 74.6 L (80-100) fL MCH 21.4 L (25-34) pg MCHC 28.6 L (32-36) g/dL RDW Std Deviation 51.8 H (36.4-46.3) fL RDW Coeff of Chris 19.5 H (11.5-14.5) % Plt Count 296 (130-400) K/uL MPV 9.6 (7.4-10.4) fL Immature Gran % (Auto) 0.3 % Neut % (Auto) 69.2 % Lymph % (Auto) 13.0 % [place] % (Auto) 15.4 % Eos % (Auto) 1.7 % Baso % (Auto) 0.4 % Immature Gran # (Auto) 0.03 H (0.00-0.02) K/uL Neut # (Auto) 6.68 H (1.4-6.5) K/uL Lymph # (Auto) 1.25 (1.2-3.4) K/uL [place] # (Auto) 1.48 H (0.11-0.59) K/uL Eos # (Auto) 0.16 (0-0.5) K/uL Baso # (Auto) 0.04 (0-0.2) K/uL Absolute Nucleated RBC 0.03 H (0-0) K/uL Nucleated RBC % (auto) 0.3 % Polychromasia 1+ Hypochromasia Present Anisocytosis Present Ovalocytes 1+ Sodium 136 (136-145) mmol/L Potassium 3.8 (3.5-5.1) mmol/L Chloride 100 (98-107) mmol/L Carbon Dioxide 27 (21-32) mmol/L Anion Gap 9.0 (3-11) BUN 34 H (7-18) mg/dl Creatinine 1.03 (0.6-1.2) mg/dl Est Cr Clr Drug Dosing 31.2 ml/min Est GFR ( Amer) 56.2 Est GFR (Non-Af Amer) 48.5 BUN/Creatinine Ratio 32.9 H (10-20) Glucose 116 H (70-99) mg/dl POC Glucose 334 H (70-99) Calcium 8.8 (8.5-10.1) mg/dl Magnesium 2.2 (1.8-2.4) mg/dl Stool Occult Bld Scrn (Negative) 09/07/18 Range/Units 07:37 WBC (4.8-10.8) K/uL RBC (4.2-5.4) M/uL Hgb (12.0-16.0) g/dL Hct (37-47) % MCV (80-100) fL MCH (25-34) pg MCHC (32-36) g/dL RDW Std Deviation (36.4-46.3) fL RDW Coeff of Chris (11.5-14.5) % Plt Count (130-400) K/uL MPV (7.4-10.4) fL Immature Gran % (Auto) % Neut % (Auto) % Lymph % (Auto) % [place] % (Auto) % Eos % (Auto) % Baso % (Auto) % Immature Gran # (Auto) (0.00-0.02) K/uL Neut # (Auto) (1.4-6.5) K/uL Lymph # (Auto) (1.2-3.4) K/uL [place] # (Auto) (0.11-0.59) K/uL Eos # (Auto) (0-0.5) K/uL Baso # (Auto) (0-0.2) K/uL Absolute Nucleated RBC (0-0) K/uL Nucleated RBC % (auto) % Polychromasia Hypochromasia Anisocytosis Ovalocytes Sodium (136-145) mmol/L Potassium (3.5-5.1) mmol/L Chloride (98-107) mmol/L Carbon Dioxide (21-32) mmol/L Anion Gap (3-11) BUN (7-18) mg/dl Creatinine (0.6-1.2) mg/dl Est Cr Clr Drug Dosing ml/min Est GFR ( Amer) Est GFR (Non-Af Amer) BUN/Creatinine Ratio (10-20) Glucose (70-99) mg/dl POC Glucose 96 (70-99) Calcium (8.5-10.1) mg/dl Magnesium (1.8-2.4) mg/dl Stool Occult Bld Scrn (Negative) _ (1) Diabetes Chronic kidney disease stage: Diabetes mellitus complication detail: Diabetes mellitus complication status: with unspecified complications Diabetes mellitus buttermaker insulin use: with buttermaker use Diabetes mellitus macular edema: Diabetes mellitus type: type 2 Diabetic retinopathy severity: Laterality: Proliferative retinopathy type: Qualified Code(s): E11.8 - Type 2 diabetes mellitus with unspecified complications; Z79.4 - MCFP (current) use of insulin (2) CHF (congestive heart failure) Heart failure chronicity: acute on chronic Heart failure type: combined systolic and diastolic Qualified Code(s): I50.43 - Acute on chronic combined systolic (congestive) and diastolic (congestive) heart failure (3) Anemia Anemia type: iron deficiency Bone marrow failure anemia type: Chronic kidney disease stage: Folate deficiency anemia type: Hemolytic anemia type: Iron deficiency anemia type: unspecified iron deficiency Other causes of anemia: Vitamin B12 deficiency anemia type: Qualified Code(s): D50.9 - Iron deficiency anemia, unspecified (4) Atrial fibrillation Atrial fibrillation type: chronic Qualified Code(s): I48.2 - Chronic atrial fibrillation (5) Cellulitis Laterality: left Site of cellulitis: extremity Site of cellulitis of extremity: upper extremity Site of cellulitis of trunk: Qualified Code(s): L03.114 - Cellulitis of left upper limb (6) Edema Edema type: localized Malnutrition edema type: Trimester: Qualified Code( s): R60.0 - Localized edema (7) Hypothyroidism Hypothyroidism type: acquired Qualified Code(s): E03.9 - Hypothyroidism, unspecified (8) Mitral regurgitation Cardiac valve disease etiology: etiology unspecified Qualified Code(s): I34.0 - Nonrheumatic mitral (valve) insufficiency (9) Right-sided heart failure Heart failure chronicity: acute on chronic Qualified Code(s): I50.813 - Acute on chronic right heart failure (10) HTN (hypertension) Hypertension type: essential hypertension Qualified Code(s): I10 - Essential (primary) hypertension
[2018-09-07] MEDS ORDERED: DIGOXIN 250 MCG in SYRINGE 9 ML IV ONE (16:45)
[2018-09-07] MEDS: FUROSEMIDE 40 MG TAB PO SCH (18:16)
[2018-09-07] MEDS: cefTRIAXone SODIUM 1,000 MG/50 ML BAG IV SCH (21:31)
[2018-09-08] MEDS ORDERED: METOPROLOL TARTRATE 1 MG/ML VIAL IV STA (00:46)
[2018-09-08 01:49] LABS: Albumin Globulin Ratio 0.9 (0.9-2); Albumin Level 3.4 gm/dl (3.4-5.0); BUN Creatinine Ratio 35.9 (10-20); Bilirubin,Total 0.4 mg/dl (0.1-1); Calcium 9.1 mg/dl (8.5-10.1); Creatinine Clr Calc Pharmacy 34.2 ml/min; Est GFR (African American) 62.8; Est GFR (Non-African American) 54.2; Magnesium 1.9 mg/dl (1.8-2.4); Potassium 3.7 mmol/L (3.5-5.1); Total Protein 7.4 gm/dl (6.4-8.2)
[2018-09-08] MEDS: DEXTROSE 50% 50 ML SYRINGE IV PRN (01:52)
[2018-09-08] MEDS: LEVOTHYROXINE SODIUM 125 MCG TABLET PO SCH (04:15)
[2018-09-08] MEDS ORDERED: POTASSIUM CHLORIDE 10 MEQ TABCR PO ONE (04:30)
[2018-09-08 07:28] LABS: BUN Creatinine Ratio 33.8 (10-20); Calcium 8.8 mg/dl (8.5-10.1); Creatinine Clr Calc Pharmacy 33.2 ml/min; Est GFR (African American) 60.4; Est GFR (Non-African American) 52.1; Magnesium 2.1 mg/dl (1.8-2.4); Potassium 4.5 mmol/L (3.5-5.1)
[2018-09-08] MEDS: VANCOMYCIN HCL 1,000 MG in SODIUM CHLORIDE 0.9% 250 ML IV SCH (09:44)
[2018-09-08] MEDS: METOPROLOL SUCC 50MG EXT REL TAB PO SCH (09:44)
[2018-09-08] MEDS: FUROSEMIDE 40 MG TAB PO SCH ×2 (09:45→17:35)
[2018-09-08] MEDS: CYANOCOBALAMIN 500 MCG TABLET (VITAMIN B-12) PO SCH (09:45)
[2018-09-08] MEDS: FERROUS SULFATE 325 MG TAB PO SCH ×2 (09:45→17:35)
[2018-09-08] MEDS: POTASSIUM CHLORIDE 10 MEQ TABCR PO SCH ×2 (09:45→20:19)
[2018-09-08] MEDS ORDERED: PHARMACY GLYCEMIC MGMT CONSULT PRN (10:20)
--- NOTE | 2018-09-08 10:25 | Hospitalist Progress Note ---
Date of Service September 08, 2018 Assessment & Plan (1) Edema: This pt is an 88 y/o F Hx permanent AFib, HTN, DM II, hypothyroid, chronic microcytic anemia. The pt had been to her MD on the day of admission due to new onset of edema in her extremities and pain and redness in her L arm. She did not have c/o CP, but was with SOB. Her MD felt that she was volume overloaded and suspected cellulitis of her arm. She was referred to the hospital therefore. Initial labs were notable for leukocytosis. A CXR suggested pulmonary vascular congestion. Edema of the LEs is secondary to acute on chronic combined systolic and diastolic CHF and the edema of the LUE is secondary to cellulitis. She was also recently started on amlodipine within the last month and this is also likely contributing to her lower extremity edema development Lower extremity edema is now resolved with diuresis Left upper extremity edema still present but much improved With significant JVD and vascular congestion on CXR upon admission which is all now continuing to improve. With acute on chronic diastolic CHF as below and her albumin is WNL -treat CHF and cellulitis as below (2) Cellulitis: LUE -cellulitis causing edema in the arm, no significant wounds but with thin skin, likely had break in skin With significant leukocytosis on admission which is now resolved Remains afebrile Technically with Sepsis given leukocytosis and tachycardia Erythema and edema are much improved, but now with developing area of fluctuance as below -continue coverage for skin organisms with Ceftriaxone and Vanc, both day #5 -May need incision and drainage of abscess and will follow cultures -follow clinically -follow CBC (3) Abscess, elbow: Left upper extremity cellulitis with now development of left lateral elbow abscess -Consult orthopedics for incision and drainage -Follow cultures after drainage if performed -Continue antibiotics as above (4) CHF (congestive heart failure): Acute on chronic combined systolic and diastolic CHF. The systolic component is new for her, but diastolic component is chronic. ECHO here with LVEF 40-45%, Right sided RV mod sys dysfunction, Pulm HTN, severe MR, TR With significant JVD, volume overload on exam and SAUL upon presentation CXR with pulm edema and small effusions Systolic dysfunction possibly from tachyarrhythmia vs ischemia? She has diuresed significantly and is clinically improved -received IV lasix bid for multiple days -converted to lasix 40mg po bid on 09/07 -Follow BMP -Continue I/Os strict, daily weights -Continue low Na+ diet -Appreciate Cardiology input -continue Toprol at increased dose of 200mg daily -will try to add lisinopril at a low dose due to borderline low blood pressures- 2.5 mg daily -Discontinued amlodipine for low blood pressures and lower extremity edema -She was also apparently on diltiazem as an outpatient which was not on her home medication reconciliation but was noted in her outpatient chart-this is also discontinued and is not appropriate in the setting of systolic CHF regardless -may need ischemic eval once acute CHF resolved-discussed with Cardiology--> they will reassess her as an outpt as low EF may be from tachyarrhythmia (5) Atrial fibrillation: Permanent, with rapid A. fib here with rates in the 130s which may have contributed to CHF Rates continue to be elevated here especially with minimal activity-required IV Lopressor last night -Continue increased dose of Toprol XL at 200mg daily -continue Xarelto for anticoagulation but lowered dose to renally appropriate dose of 15 mg once daily with dinner-HOLD for now in case of need for incision and drainage-restart when appropriate from a surgical standpoint -She was on diltiazem previously but this has been discontinued due to systolic CHF and would not restart -discussed with Cardio on 09/07 regarding uncontrolled rates--> loaded with digoxin 0.25mg IV x 1 on 09/07 -Continue digoxin 0.125mg po qAM -continue tele monitoring (6) Anemia: Her hemoglobin is approximately at baseline at 8.0-9.0-this has been long- standing for years and she was previously treated with oral iron supplementation Hemoglobin was likely spuriously down to 7.7 at one point during admission, but is now at 9.1 Microcytic Fe studies indicate Fe deficiency with ferritin 26, Trans sat 4% B12 and folate normal Hemoccult stool is negative now and also in 06/2018 -I cannot find evidence in the outpatient or inpatient record of ever having endoscopies. Patient and her daughter cannot recall ever having endoscopies -transfuse if hgb <8.0 -Started po iron 325 mg p.o. twice daily -follow CBC -Given cardiac issues and advanced age, would not likely pursue endoscopies unless patient and family were really wanting to. However, she is on an anticoagulant and so this might become a long-standing issue of occult bleeding. 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 Fortunately, she is now at a personal f[facility] where they will be administering the insulin for her HgbA1C was uncontrolled at 10.0% 1 month ago -consult Pharmacy for Glycemic control--> appreciate assistance with this -Daughter reports metformin give the patient severe diarrhea in the past and she cannot take it (9) Hypothyroidism: TSH elevated here at 6 with normal FT4 -continue home dose SYnthroid and repeat TFTs in 4 weeks (10) Mitral regurgitation: Severe on ECHO here -may need ishemic eval in the future -control BP and watch volume status as above Cardiology following (11) Right-sided heart failure: Moderate RV dysfunction and Pulm HTN as above -possibly due to undiagnosed emphysema as seen on CXR? Diuresing as above (12) DVT prophylaxis: Xarelto 15 mg daily-on hold for now for possible incision and drainage Dispo-remain on tele, possible discharge in the next 1-2 days if rates controlled, blood sugars controlled, and awaiting orthopedic evaluation for elbow abscess PT/OT consultations recommend return to [facility] Discussed her plan of care with her daughter on the phone Subjective Pt reports some pain in left elbow but improved from previous. Denies CP or SOB. Is frustrated that she has to stay longer. Tele with Rapid A-fib at times to the 150s overnight, required IV lopressor overnight. Remains afebrile. Also had severe hypoglycemia overnight to 38. Pt reports she has no idea how much insulin she takes at her new [facility]. Daughter tells me that she just moved there 2 weeks ago and that the staff give her all of her medications including her insulin. Review of Systems All systems reviewed & are unremarkable except as noted in HPI & below Physical Exam 2 Vital Signs (Past 24 Hours): Last Vital Signs Temp 36.7 C 09/08/18 07:05 Pulse 81 09/08/18 07:05 Resp 16 09/08/18 07:05 BP 131/74 09/08/18 07:05 Pulse Ox 98 09/08/18 07:05 Constitutional: WD/WN, vitals as above Eyes: PERRL, conjunctivae normal, anicteric sclerae ENMT: external ear and nose normal, oropharynx normal Ears: no hearing impairment Neck: trachea midline, no thyromegaly Respiratory: normal respiratory effort; no respiratory distress Auscultation: + crackles (mild at bases); no rhonchi and no wheezes Cardiovascular: Rate/Rhythm: regular rate; + abnormal rhythm (irreg irreg) Heart Sounds: no murmur Extremities: no edema (resolved completely in LEs) Gastrointestinal (Abdomen): normal bowel sounds, soft, nontender, no hepatosplenomegaly Musculoskeletal: Extremities: + extremities abnormal to inspection (LUE with very minimal erythema and pitting edema mostly in tricep and now with 2 x 2 centimeter area of fluctuance on the left lateral elbow), no cyanosis and no clubbing Skin: + erythema (Very minimal residual edema of the left forearm much improved from before) Neurologic: moves all extremities and awake; no focal motor deficits Psychiatric: Orientation: alert and oriented to person Results & Data Laboratory Results 09/08/18 09/08/18 09/08/18 Range/Units 13:27 13:26 11:42 Sodium (136-145) mmol/L Potassium (3.5-5.1) mmol/L Chloride (98-107) mmol/L Carbon Dioxide (21-32) mmol/L Anion Gap (3-11) BUN (7-18) mg/dl Creatinine (0.6-1.2) mg/dl Est Cr Clr Drug Dosing ml/min Est GFR ( Amer) Est GFR (Non-Af Amer) BUN/Creatinine Ratio (10-20) Glucose (70-99) mg/dl POC Glucose 413 H* 406 H* 443 H* (70-99) Calcium (8.5-10.1) mg/dl Magnesium (1.8-2.4) mg/dl Total Bilirubin (0.1-1) mg/dl AST (15-37) U/L ALT (12-78) U/L Alkaline Phosphatase (45-117) U/L Total Protein (6.4-8.2) gm/dl Albumin (3.4-5.0) gm/dl Globulin (2.5-4.0) gm/dl Albumin/Globulin Ratio (0.9-2) Stool Occult Bld Scrn (Negative) 09/08/18 09/08/18 09/08/18 Range/Units 11:39 07:40 06:21 Sodium 136 (136-145) mmol/L Potassium 4.5 D (3.5-5.1) mmol/L Chloride 100 (98-107) mmol/L Carbon Dioxide 27 (21-32) mmol/L Anion Gap 9.0 (3-11) BUN 33 H (7-18) mg/dl Creatinine 0.97 (0.6-1.2) mg/dl Est Cr Clr Drug Dosing 33.2 ml/min Est GFR ( Amer) 60.4 Est GFR (Non-Af Amer) 52.1 BUN/Creatinine Ratio 33.8 H (10-20) Glucose 122 H (70-99) mg/dl POC Glucose 403 H* 130 H (70-99) Calcium 8.8 (8.5-10.1) mg/dl Magnesium 2.1 (1.8-2.4) mg/dl Total Bilirubin (0.1-1) mg/dl AST (15-37) U/L ALT (12-78) U/L Alkaline Phosphatase (45-117) U/L Total Protein (6.4-8.2) gm/dl Albumin (3.4-5.0) gm/dl Globulin (2.5-4.0) gm/dl Albumin/Globulin Ratio (0.9-2) Stool Occult Bld Scrn (Negative) 09/08/18 09/08/18 09/07/18 Range/Units 02:12 01:09 21:00 Sodium 137 (136-145) mmol/L Potassium 3.7 (3.5-5.1) mmol/L Chloride 99 (98-107) mmol/L Carbon Dioxide 30 (21-32) mmol/L Anion Gap 8.0 (3-11) BUN 34 H (7-18) mg/dl Creatinine 0.94 (0.6-1.2) mg/dl Est Cr Clr Drug Dosing 34.2 ml/min Est GFR ( Amer) 62.8 Est GFR (Non-Af Amer) 54.2 BUN/Creatinine Ratio 35.9 H (10-20) Glucose 38 L* (70-99) mg/dl POC Glucose 176 H (70-99) Calcium 9.1 (8.5-10.1) mg/dl Magnesium 1.9 (1.8-2.4) mg/dl Total Bilirubin 0.4 (0.1-1) mg/dl AST 34 (15-37) U/L ALT 28 (12-78) U/L Alkaline Phosphatase 217 H (45-117) U/L Total Protein 7.4 (6.4-8.2) gm/dl Albumin 3.4 (3.4-5.0) gm/dl Globulin 4.0 (2.5-4.0) gm/dl Albumin/Globulin Ratio 0.9 (0.9-2) Stool Occult Bld Scrn Negative (Negative) 09/07/18 09/07/18 Range/Units 20:23 16:28 Sodium (136-145) mmol/L Potassium (3.5-5.1) mmol/L Chloride (98-107) mmol/L Carbon Dioxide (21-32) mmol/L Anion Gap (3-11) BUN (7-18) mg/dl Creatinine (0.6-1.2) mg/dl Est Cr Clr Drug Dosing ml/min Est GFR ( Amer) Est GFR (Non-Af Amer) BUN/Creatinine Ratio (10-20) Glucose (70-99) mg/dl POC Glucose 111 H 317 H (70-99) Calcium (8.5-10.1) mg/dl Magnesium (1.8-2.4) mg/dl Total Bilirubin (0.1-1) mg/dl AST (15-37) U/L ALT (12-78) U/L Alkaline Phosphatase (45-117) U/L Total Protein (6.4-8.2) gm/dl Albumin (3.4-5.0) gm/dl Globulin (2.5-4.0) gm/dl Albumin/Globulin Ratio (0.9-2) Stool Occult Bld Scrn (Negative) _ (1) Diabetes Chronic kidney disease stage: Diabetes mellitus complication detail: Diabetes mellitus complication status: with unspecified complications Diabetes mellitus termite control representative insulin use: with termite control representative use Diabetes mellitus macular edema: Diabetes mellitus type: type 2 Diabetic retinopathy severity: Laterality: Proliferative retinopathy type: Qualified Code(s): E11.8 - Type 2 diabetes mellitus with unspecified complications; Z79.4 - termite technician (current) use of insulin (2) CHF (congestive heart failure) Heart failure chronicity: acute on chronic Heart failure type: combined systolic and diastolic Qualified Code(s): I50.43 - Acute on chronic combined systolic (congestive) and diastolic (congestive) heart failure (3) Anemia Anemia type: iron deficiency Bone marrow failure anemia type: Chronic kidney disease stage: Folate deficiency anemia type: Hemolytic anemia type: Iron deficiency anemia type: unspecified iron deficiency Other causes of anemia: Vitamin B12 deficiency anemia type: Qualified Code(s): D50.9 - Iron deficiency anemia, unspecified (4) Atrial fibrillation Atrial fibrillation type: chronic Qualified Code(s): I48.2 - Chronic atrial fibrillation (5) Cellulitis Laterality: left Site of cellulitis: extremity Site of cellulitis of extremity: upper extremity Site of cellulitis of trunk: Qualified Code(s): L03.114 - Cellulitis of left upper limb (6) Edema Edema type: localized Malnutrition edema type: Trimester: Qualified Code( s): R60.0 - Localized edema (7) Hypothyroidism Hypothyroidism type: acquired Qualified Code(s): E03.9 - Hypothyroidism, unspecified (8) Mitral regurgitation Cardiac valve disease etiology: etiology unspecified Qualified Code(s): I34.0 - Nonrheumatic mitral (valve) insufficiency (9) Right-sided heart failure Heart failure chronicity: acute on chronic Qualified Code(s): I50.813 - Acute on chronic right heart failure (10) HTN (hypertension) Hypertension type: essential hypertension Qualified Code(s): I10 - Essential (primary) hypertension
[2018-09-08] MEDS ORDERED: INSULIN GLARGINE SOLOSTAR 100 UNITS/ML 3 ML PEN SC STA (10:38)
[2018-09-08] MEDS: INSULIN ASPART 100 UNITS/ML 3 ML PEN SC SCH ×4 (10:45→19:00)
[2018-09-08] MEDS ORDERED: INSULIN HUMAN REGULAR PER UNIT 4 UNITS in SYRINGE 0 ML IV ONE (12:15)
--- NOTE | 2018-09-08 14:06 | XRay Report ---
LEFT ELBOW 3 VIEWS HISTORY: elbow pain and swelling COMPARISON: None. FINDINGS: There is no fracture or dislocation. Diffuse soft tissue swelling. Questionable trace elbow effusion. No radiopaque foreign bodies. IMPRESSION: 1. Diffuse soft tissue swelling with a questionable trace effusion. 2. No fracture or dislocation. Electronically signed by: Hardeep Ortez M.D. 09/08/2018 2:05 PM
[2018-09-08] MEDS: LISINOPRIL 2.5 MG TAB PO SCH (14:45)
--- NOTE | 2018-09-08 15:10 | Pharmacy Report ---
Glycemic Control Consultation - Date of Service September 08, 2018 - Scope Scope: Glycemic Pharmacist consulted by Dr Bates on 09/08/18 for glycemic control and to write orders per [facility], located within [facility] inpatient glycemic control protocol - Objective Weight: 58.1 kg Accuchecks BSG (last 24hrs): 09/07/18 09/07/18 09/08/18 16:28 20:23 01:09 Glucose 38 L* POC Glucose 317 H 111 H 09/08/18 09/08/18 09/08/18 02:12 06:21 07:40 Glucose 122 H POC Glucose 176 H 130 H 09/08/18 09/08/18 09/08/18 11:39 11:42 13:26 Glucose POC Glucose 403 H* 443 H* 406 H* 09/08/18 13:27 Glucose POC Glucose 413 H* Laboratory Data (last 24hrs): 09/08/18 09/08/18 01:09 06:21 Potassium 3.7 4.5 D Carbon Dioxide 30 27 Anion Gap 8.0 9.0 Creatinine 0.94 0.97 Est Cr Clr Drug Dosing 34.2 33.2 - Assessment & Plan Assessment & Plan: ASSESSMENT: * Ms. Berg is an 88yo F known to the pharmacy glycemic service from previous admissions. She is chronically anemic, gauging her diabetic status with an A1C may not be reliable. She p/w edema, cellulitis, CHF, A fib, among others. Given her age, comorbidities BSGs bt 100-250mg/dL are reasonable. * BSGs have been wide-ranging this admission. She was low this AM, 38mg/dL. Potentially due to large doses of novolog given yesterday (albeit appropriate). * Ms. Berg tends to run high at lunch and dinner (300s and even 400s today). Will try with tighter CF/CR with breakfast and lunch and a loose CF/CR with dinner PLAN FOR INPATIENT GLYCEMIC CONTROL: * Basal insulin * Lantus 15 units given with lunch today due to low this AM * Will consider conservative lantus scale with HS tonight * Bolus insulin * Goal range for Novolog AC * 120-160mg/dL * CF/CR for breakfast and lunch: 25/8 to help mitigate elevated BSGs with lunch and dinner * CF/CR for dinner will be 30/10 to help prevent lows at HS and overnight * Please note that the plan above was derived based on current level of insulin resistance and hospital stress. These recommendations are appropriate for inpatient admission only. Plan of care upon discharge will need to be reassessed to avoid potential outpatient hypo/hyperglycemia. Thank you.
[2018-09-08] MEDS: DIGOXIN 0.125 MG TAB PO SCH (17:35)
--- NOTE | 2018-09-08 17:39 | Orthopedic Consultation ---
Date of Consultation September 08, 2018 Assessment & Plan (1) Abscess, elbow: Will obtain CT scan of left upper extremity to confirm abscess, and assess for additional abscesses secondary to chronicity of the infection. Elbow joint unlikely involved. Patient does have IV in her left upper extremity and would recommend removing and placement at a different site. She should continue to elevate her left upper extremity and limit her activity and lifting. I had a long and detailed conversation with the patient in regards to treatment options if CT scan positive for abscess. This would include irrigation and debridement and wound packing and IV antibiotics. The patient is refusing any surgical intervention at this time however is willing to undergo CT scan. I explained the risk benefits complications of surgery which include however not limited to infections, blood clots, acute blood loss, injury to surrounding nerves, bone, soft tissue, vessels, arthrofibrosis, chronic pain, need for additional surgery, cardiac and pulmonary events and . I explained the risks of surgery which include worsening of the infection, sepsis, loss of limb and loss of life. I explained to the patient that repeat aspirations will fail to clear the asbscess and only result in recurrence. We will follow up CT results with patient upon completion. Thank you for the consultation. History of Present Illness Reason for Consultation: Left elbow abscess/cellulitis Attending Physician: Sandy Bates MD History of Present Illness The patient is a 88-year-old female with significant past medical history for PAF, HTN, diabetes type 2, hypothyroid, chronic anemia who presented to [facility] with complaints of with edema in her extremities and cellulitis of her left upper arm. Admitted for further inpatient treatment for CHF and left upper extremity cellulitis. Patient is a poor historian however does report that the swelling in her arm has been ongoing for 3 months and reports multiple aspiration attempts of her left elbow abscess. Denies any trauma, prior surgery to the elbow, fevers chills nausea vomiting shortness of breath or chest pain. Denies numbness and tingling of her left upper arm. Had recent admission in June for DKA and sepsis. Allergies Allergy/AdvReac Type Severity Reaction Status Date / Time erythromycin base Allergy Unknown Unverified 09/03/18 16:49 Home Medications Home Medications Medication Instructions Recorded Confirmed Type calcium carbonate-vitamin D3 1 tab PO BID 05/16/18 09/03/18 History [Caltrate 600 + D] cholecalciferol (vitamin D3) 2,000 unit PO DAILY 05/16/18 09/03/18 History [Vitamin D3] cranberry extract 500 mg PO DAILY 05/16/18 09/03/18 History cyanocobalamin (vitamin B-12) 1,000 mcg PO DAILY 05/16/18 09/03/18 History [Vitamin B-12] levothyroxine 125 mcg PO DAILY 05/16/18 09/03/18 History ranitidine HCl 150 mg PO BID 05/16/18 09/03/18 History rivaroxaban [Xarelto] 20 mg PO DAILY 05/16/18 09/03/18 History vit C,S-Ft-[place]-lutein-zeaxan 1 tab PO BID 05/16/18 09/03/18 History [PreserVision AREDS-2] acetaminophen 1,000 mg PO BID 09/03/18 09/03/18 History acetaminophen 650 mg PO Q6H PRN MDD 3GM/24HR 09/03/18 09/03/18 History amlodipine 5 mg PO DAILY 09/03/18 09/03/18 History dextromethorphan-guaifenesin [Safe 10 ml PO Q4H PRN 09/03/18 09/03/18 History Tussin DM] glucagon (human recombinant) 1 ml IM UD PRN 09/03/18 09/03/18 History [Glucagon Emergency Kit (human)] insulin NPH isoph U-100 human 10 unit SUBCUT DAILY 09/03/18 09/03/18 History [Humulin N NPH Insulin KwikPen] insulin aspart U-100 [Novolog 1 sliding scale dose SUBCUT UD 09/03/18 09/03/18 History U-100 Insulin aspart] insulin glargine [Lantus Solostar 20 unit SUBCUT DAILY 09/03/18 09/03/18 History U-100 Insulin] metoprolol succinate 150 mg PO DAILY 09/03/18 09/03/18 History sodium chloride [Saline Mist] 2 spray INTRANASAL DAILY PRN 09/03/18 09/03/18 History Patient History Medical History Diarrhea Diabetes (Chronic) Macular degeneration (Chronic) HTN (hypertension) (Chronic) Abnormal EKG (Acute) DKA (diabetic ketoacidosis) (Acute) Epistaxis (Acute) Fever (Acute) Microcytic anemia (Acute) Nondisplaced fracture of right femur SIRS (systemic inflammatory response syndrome) (Acute) Symptomatic anemia (Acute) Acute dehydration (Acute) Acute hyperglycemia (Acute) Acute thoracic back pain (Acute) Atrial fibrillation (Chronic) Sepsis Afib Back pain Hypertension Hypothyroidism Diabetes mellitus type 2 with complications Surgical History Status post hysterectomy Family History Other DM type 2 (diabetes mellitus, type 2) Hypertension Social History Current Living Situation: Personal Care Facility Current Living Situation Comment: Pt currently lives alone, with family checking in on her and caregiver. Feels Safe at Home: Yes Safety Concerns: Feels Safe At This Time Smoking Status: Never smoker Hx Alcohol Use: No Hx Substance Use: No Beliefs That Will Affect Care: None Communication Ability: Effective Review of Systems Constitutional: as per Subjective / HPI Physical Exam 2 Vital Signs (Past 24 Hours): Last Vital Signs Temp 36.8 C 09/08/18 15:16 Pulse 86 09/08/18 15:16 Resp 16 09/08/18 15:16 BP 126/54 L 09/08/18 15:16 Pulse Ox 93 09/08/18 15:16 Physical Exam: Alert and oriented x3, no apparent distress Left upper extremity is neurovascular sensory intact, + median/radial/ulnar/AIN/ PIN, sensory intact light touch grossly, actively moves all 5 digits, +2 radial pulse, there is mild erythema of the left elbow that is not circumferential, no effusion or bursitis. Full active painless range of motion of the wrist elbow and shoulder. There is a 4 cm x 3 cm fluid collection/mass with fluctuance, no induration, posterior and distal to the lateral epicondyle. The patient is tender to palpation at this site. Skin is clean dry and intact. Results & Data Diagnostic Findings LEFT ELBOW 3 VIEWS HISTORY: elbow pain and swelling COMPARISON: None. FINDINGS: There is no fracture or dislocation. Diffuse soft tissue swelling. Questionable trace elbow effusion. No radiopaque foreign bodies. IMPRESSION: 1. Diffuse soft tissue swelling with a questionable trace effusion. 2. No fracture or dislocation.
[2018-09-08] MEDS: INSULIN GLARGINE SOLOSTAR 100 UNITS/ML 3 ML PEN SQ SCH (19:00)
[2018-09-08] MEDS: cefTRIAXone SODIUM 1,000 MG/50 ML BAG IV SCH (20:18)
[2018-09-08] MEDS ORDERED: INSULIN GLARGINE SOLOSTAR 100 UNITS/ML 3 ML PEN SC ONE (21:00)
[2018-09-09] MEDS ORDERED: VANCOMYCIN TROUGH ONE (03:30)
[2018-09-09 03:40] LABS: Basophils # (auto) 0.05 K/uL (0-0.2); Basophils % (auto) 0.5 %; Eosinophils # (auto) 0.16 K/uL (0-0.5); Eosinophils % (auto) 1.7 %; Hematocrit (blood only) 31.8 % (37-47); Hemoglobin 9.1 g/dL (12.0-16.0); Immature Granulocytes # (auto) 0.12 K/uL (0.00-0.02); Immature Granulocytes % (auto) 1.3 %; Lymphocytes # (auto) 1.36 K/uL (1.2-3.4); Lymphocytes % (auto) 14.6 %; Mean Corpuscular Hgb Conc 28.6 g/dL (32-36); Mean Corpuscular Volume 75.4 fL (80-100); Mean Platelet Volume 9.8 fL (7.4-10.4); Monocytes # (auto) 1.19 K/uL (0.11-0.59); Monocytes % (auto) 12.8 %; Neutrophils # (auto) 6.44 K/uL (1.4-6.5); Neutrophils % (auto) 69.1 %; Nucleated RBC # (auto) 0.02 K/uL (0-0); Nucleated RBC % (auto) 0.2 %; Platelet Count 286 K/uL (130-400); RDW Coefficient of Variation 19.9 % (11.5-14.5); Red Blood Count 4.22 M/uL (4.2-5.4); White Blood Count 9.32 K/uL (4.8-10.8)
[2018-09-09 03:59] LABS: BUN Creatinine Ratio 27.2 (10-20); Calcium 8.8 mg/dl (8.5-10.1); Creatinine Clr Calc Pharmacy 30.9 ml/min; Est GFR (African American) 55.6; Est GFR (Non-African American) 47.9; Magnesium 1.9 mg/dl (1.8-2.4); Potassium 3.9 mmol/L (3.5-5.1)
[2018-09-09 04:00] LABS: Phosphorus 3.4 mg/dl (2.5-4.9)
[2018-09-09] MEDS: VANCOMYCIN HCL 1,000 MG in SODIUM CHLORIDE 0.9% 250 ML IV SCH (04:03)
[2018-09-09] MEDS: LEVOTHYROXINE SODIUM 125 MCG TABLET PO SCH (05:37)
[2018-09-09] MEDS: INSULIN ASPART 100 UNITS/ML 3 ML PEN SC SCH ×5 (08:15→20:40)
[2018-09-09] MEDS: ACETAMINOPHEN 325 MG TAB PO PRN (08:20)
--- NOTE | 2018-09-09 08:21 | Orthopedic Progress Note ---
Date of Service September 09, 2018 Assessment & Plan (1) Abscess, elbow: -Patient refused CT yesterday evening, however is agreeable this morning. Will obtain CT scan of left upper extremity to confirm abscess, and assess for additional abscesses and joint involvement secondary to chronicity of the infection. -Will await CT scan and review with patient. Possible OR later today for I&D depending on CT results and if patient consents. Keep n.p.o., hold anticoagulation. Medical clearance is pending. Subjective Patient resting in bed comfortably. She refused CT and surgery yesterday, however is agreeable to get this done this morning. Did discuss if surgery was indicated if she would consent, and she was open to surgical intervention if necessary at this time. Constitutional: as per Subjective / HPI Physical Exam 2 Vital Signs (Past 24 Hours): Last Vital Signs Temp 37.1 C 09/09/18 06:58 Pulse 87 09/09/18 06:58 Resp 21 09/09/18 06:58 BP 138/61 09/09/18 06:58 Pulse Ox 97 09/09/18 06:58 Physical Exam: N/V status intact. Tenderness noted over area of fluctuance. 4x3 cm area of fluctuance/swelling noted posterolateral aspect of elbow with mild erythema. No induration noted. Full painless range of motion of the elbow.
[2018-09-09] MEDS ORDERED: INSULIN GLARGINE SOLOSTAR 100 UNITS/ML 3 ML PEN SC SCH (09:00)
--- NOTE | 2018-09-09 09:19 | Hospitalist Progress Note ---
Date of Service September 09, 2018 Assessment & Plan (1) Acute on chronic systolic heart failure: Appears compensated at this time. Cont BB, low-dose CHERYL, and lasix BID by mouth. Labs acceptable this am. Present on Admission?: Yes (2) Abscess, elbow: Left elbow region, superficial based on my exam. Joint does not appear to be involved. Ortho has seen - CT of the elbow performed this am - results pending. Regardless the plan is for I/D in the OR this am. She is NPO and xarelto is on hold. Cont rocephin/vanco as previous while awaiting OR cultures. (3) Cellulitis: LUE - resolved clinically. Remains on rocephin/vancomycin for left elbow abscess. (4) Iron deficiency anemia: Chronic. Is on ferrous sulfate supplementation. Stool fecal occult was negative. Will need f/u after discharge for this. Will need a minimum of 4-6 months of oral Fe replacement if she can tolerate. If she cannot tolerate then IV Fe as outpatient. In light of advanced age I don't know if GI endoscopic eval will be pursued but this should be discussed with patient at some point. (5) Atrial fibrillation: Rates are controlled with beta alisia. Xarelto on hold due to need for I/D of left elbow cyst/abscess. Resume post-op when ok with ortho. (6) Chronic kidney disease with symptom management only, stage 3 (moderate): creatinine is stable. repeat BMP again in am. (7) Diabetes mellitus type 2 with complications: Pharmacy managing at this time. Defer adjustments to them. (8) Hypothyroidism: Recent TSH was mildly high at 6 but Free T4 was stable. no change in synthroid. Would simply repeat the TSH in 4-6 weeks as outpatient. (9) Hypertension: controlled at this time. (10) Pulmonary HTN: could be due to MR. the PA pressures will be higher in the setting of decompensated CHF. either way it can be followed as outpatient. (11) Mitral regurgitation: severe noted (12) Tricuspid regurgitation: (13) DVT prophylaxis: was on xarelto; being held for orthopedic procedure. From a medical standpoint she is optimized for her orthopedic procedure today. CHF and a. fib are under good control with stable vitals & labs. She remains an acceptable cardiovascular risk for today's procedure. Subjective Only complaint is that of mild left elbow discomfort No dyspnea No chest pain No orthopnea Tele overnight with rate-controlled a. fib Constitutional: no fever and no chills Respiratory: no cough Cardiovascular: no chest pain Gastrointestinal: no abdominal pain, no nausea, no vomiting, no constipation and no diarrhea/loose stools Physical Exam 2 Vital Signs (Past 24 Hours): Last Vital Signs Temp 37.1 C 09/09/18 06:58 Pulse 87 09/09/18 06:58 Resp 21 09/09/18 06:58 BP 138/61 09/09/18 06:58 Pulse Ox 97 09/09/18 06:58 Constitutional: WD/WN, vitals as above average body habitus; no acute distress ENMT: external ear and nose normal, oropharynx normal Respiratory: normal respiratory effort, lungs clear to auscultation Auscultation: + rales (occasional bases) Cardiovascular: Rate/Rhythm: regular rate; + abnormal rhythm (irregular) Heart Sounds: normal S1 and normal S2; no murmur Vessels: posterior tibial pulses present and dorsalis pedis pulses present; no JVD Extremities: no edema Gastrointestinal (Abdomen): normal bowel sounds, soft, nontender, no hepatosplenomegaly Musculoskeletal: left elbow with FULL ROM (passive and active); lateral aspect of joint with 2-3cm in diameter superficial cyst vs abscess, mildly tender to palpation Skin: no cellulitis of LUE; abscess left elbow region as above Psychiatric: Orientation: alert Results & Data Laboratory Results Laboratory Results - last 24 hr 09/08/18 09/08/18 09/08/18 11:39 11:42 13:26 WBC RBC Hgb Hct MCV MCH MCHC RDW Std Deviation RDW Coeff of Chris Plt Count MPV Immature Gran % (Auto) Neut % (Auto) Lymph % (Auto) [place] % (Auto) Eos % (Auto) Baso % (Auto) Immature Gran # (Auto) Neut # (Auto) Lymph # (Auto) [place] # (Auto) Eos # (Auto) Baso # (Auto) Absolute Nucleated RBC Nucleated RBC % (auto) Sodium Potassium Chloride Carbon Dioxide Anion Gap BUN Creatinine Est Cr Clr Drug Dosing Est GFR ( Amer) Est GFR (Non-Af Amer) BUN/Creatinine Ratio Glucose POC Glucose 403 H* 443 H* 406 H* Calcium Phosphorus Magnesium Stool Occult Bld Scrn Vancomycin Trough 12/09/08/18 09/08/18 13:27 16:17 20:37 WBC RBC Hgb Hct MCV MCH MCHC RDW Std Deviation RDW Coeff of Chris Plt Count MPV Immature Gran % (Auto) Neut % (Auto) Lymph % (Auto) [place] % (Auto) Eos % (Auto) Baso % (Auto) Immature Gran # (Auto) Neut # (Auto) Lymph # (Auto) [place] # (Auto) Eos # (Auto) Baso # (Auto) Absolute Nucleated RBC Nucleated RBC % (auto) Sodium Potassium Chloride Carbon Dioxide Anion Gap BUN Creatinine Est Cr Clr Drug Dosing Est GFR ( Amer) Est GFR (Non-Af Amer) BUN/Creatinine Ratio Glucose POC Glucose 413 H* 215 H 134 H Calcium Phosphorus Magnesium Stool Occult Bld Scrn Vancomycin Trough 09/09/18 09/09/18 09/09/18 01:56 03:21 03:21 WBC 9.32 RBC 4.22 Hgb 9.1 L Hct 31.8 L MCV 75.4 L MCH 21.6 L MCHC 28.6 L RDW Std Deviation 52.0 H RDW Coeff of Chris 19.9 H Plt Count 286 MPV 9.8 Immature Gran % (Auto) 1.3 Neut % (Auto) 69.1 Lymph % (Auto) 14.6 [place] % (Auto) 12.8 Eos % (Auto) 1.7 Baso % (Auto) 0.5 Immature Gran # (Auto) 0.12 H Neut # (Auto) 6.44 Lymph # (Auto) 1.36 [place] # (Auto) 1.19 H Eos # (Auto) 0.16 Baso # (Auto) 0.05 Absolute Nucleated RBC 0.02 H Nucleated RBC % (auto) 0.2 Sodium Potassium Chloride Carbon Dioxide Anion Gap BUN Creatinine Est Cr Clr Drug Dosing Est GFR ( Amer) Est GFR (Non-Af Amer) BUN/Creatinine Ratio Glucose POC Glucose 286 H Calcium Phosphorus Magnesium Stool Occult Bld Scrn Vancomycin Trough 23.3 09/09/18 09/09/18 09/09/18 03:21 07:05 Unknown WBC RBC Hgb Hct MCV MCH MCHC RDW Std Deviation RDW Coeff of Chris Plt Count MPV Immature Gran % (Auto) Neut % (Auto) Lymph % (Auto) [place] % (Auto) Eos % (Auto) Baso % (Auto) Immature Gran # (Auto) Neut # (Auto) Lymph # (Auto) [place] # (Auto) Eos # (Auto) Baso # (Auto) Absolute Nucleated RBC Nucleated RBC % (auto) Sodium 135 L Potassium 3.9 Chloride 97 L Carbon Dioxide 30 Anion Gap 8.0 BUN 28 H Creatinine 1.04 Est Cr Clr Drug Dosing 30.9 Est GFR ( Amer) 55.6 Est GFR (Non-Af Amer) 47.9 BUN/Creatinine Ratio 27.2 H Glucose 240 H POC Glucose 297 H Calcium 8.8 Phosphorus 3.4 Magnesium 1.9 Stool Occult Bld Scrn Negative Vancomycin Trough _ (1) Iron deficiency anemia Iron deficiency anemia type: unspecified iron deficiency Qualified Code(s): D50.9 - Iron deficiency anemia, unspecified (2) Cellulitis Laterality: left Site of cellulitis: extremity Site of cellulitis of extremity: upper extremity Site of cellulitis of trunk: Qualified Code(s): L03.114 - Cellulitis of left upper limb (3) Atrial fibrillation Atrial fibrillation type: chronic Qualified Code(s): I48.2 - Chronic atrial fibrillation (4) Diabetes mellitus type 2 with complications Diabetes mellitus lead nuclear medicine technologist insulin use: with lead nuclear medicine technologist use Qualified Code(s) : E11.8 - Type 2 diabetes mellitus with unspecified complications; Z79.4 - MCFP (current) use of insulin (5) Hypothyroidism Hypothyroidism type: acquired Qualified Code(s): E03.9 - Hypothyroidism, unspecified (6) Hypertension Hypertension type: essential hypertension Qualified Code(s): I10 - Essential (primary) hypertension (7) Mitral regurgitation Cardiac valve disease etiology: etiology unspecified Qualified Code(s): I34.0 - Nonrheumatic mitral (valve) insufficiency (8) Tricuspid regurgitation Cardiac valve disease etiology: nonrheumatic Qualified Code(s): I36.1 - Nonrheumatic tricuspid (valve) insufficiency
[2018-09-09] MEDS ORDERED: OPTIRAY 320 125ml IV PRN (09:40)
--- NOTE | 2018-09-09 09:54 | Pharmacy Report ---
Pharmacy Abx Dose Short Note - Date of Service September 09, 2018 - Assessment & Plan Assessment 88 year old F receiving VANCOMYCIN + CEFTRIAXONE for treatment of cellulitis of LUE Day # 7 of antimicrobial therapy Micro remains negative Renal fxn stable Plan Vancomycin * Trough level of 23.3 mcg/mL is supratherapeutic. Level was reflective of steady-state and drawn at appropriate time. Prior doses hung on time as well. * Change to 1000 mg IV every 24 hours * Goal trough level for skin/skin structure : 10 to 20 mcg/mL * Will recheck trough in ~3 days if therapy to continue Pharmacy will continue to follow and will adjust dose/frequency as necessary. Thank you.
--- NOTE | 2018-09-09 10:02 | CT Scan Report ---
CT elbow LT w con HISTORY: 88 years-old Female r/o abscess acute pain and swelling of the left the bowel with clinical concern for possible abscess. COMPARISON: Left elbow radiographs 09/08/2018 TECHNIQUE: Multiple axial CT images of the left elbow were obtained following the intravenous adminis tration of 118 mL Optiray 320 IV contrast. A dose lowering technique was used consistent with the lorena ncipals of ALEJANDRO. FINDINGS: Demineralized appearance of the bones suggestive of osteopenia or osteoporosis. Degenerative marginal spurring about the humeral epicondyles and olecranon process. No acute fracture or dislocation, spec ifically the radial head appears intact. No erosive changes to suggest acute osteomyelitis. Study is mildly motion degraded which limits evaluation of bony detail. Moderate dorsal subcutaneous edema of the distal upper arm, elbow and proximal forearm. Peripherally enhancing fluid collection within the distribution of the dorsal lateral tissues of the elbow superfi cial to the lateral humeral condyle measures 3.0 x 1.5 x 3.2 cm, image 61 series 4 and image 38 serie s 203 extending to the superficial subcutaneous tissues. Likely reactive 4 mm lymph node about the di stal aspect of the upper arm. The imaged arterial and venous structures appear unremarkable. The musc ulature is within normal limits. Trace joint effusion. IMPRESSION: 1. No acute fracture or dislocation. 2. Demineralized appearance of the bones with degenerative changes as above. 3. Moderate subcutaneous edema about the dorsal aspect of the upper arm, elbow and forearm. Periphera lly enhancing fluid collection within the distribution of the dorsal lateral tissues of the elbow sup erficial to the lateral humeral condyle measures up to 3.2 cm. Differential considerations would incl ude abscess or less likely bursitis. 4. Trace joint effusion. The above report was generated using voice recognition software. It may contain grammatical, syntax o r spelling errors. Electronically signed by: Alex Mix M.D. 09/09/2018 10:01 AM
[2018-09-09] MEDS ORDERED: fentaNYL citrate 100 MCG/2 ML VIAL ONE (10:41)
[2018-09-09] MEDS ORDERED: LIDOCAINE HCL 2% 2 ML VIAL/AMP(20MG/ML) INFIL ONE (10:41)
[2018-09-09] MEDS ORDERED: PROPOFOL IV EMULSION 10 MG/ML 20 ML VIAL IV ONE (10:42)
--- NOTE | 2018-09-09 11:07 | Anesthesiology Consultation ---
Date of Service September 09, 2018 Assessment & Plan (1) Encounter for pre-operative examination: Chart Review Chart Review: Acceptable Risk for Surgery and Patient NOT seen in Pre Admission Testing Consults Requested none ASA [id number] Proposed Anesthesia Anesthesia Type: General Risk / Benefits Reviewed With: PT / POA / Parent / Guardian, Accepts Plan and Informed Consent Obtained History Surgery Operation Date: 09/09/18 09:00 Proposed Procedures p Incision and Drainage Extremity - Diego Huerta, Height/Weight Height: 5 ft 3 in Weight: 54.3 kg Allergies Allergy/AdvReac Type Severity Reaction Status Date / Time erythromycin base Allergy Unknown Unverified 09/03/18 16:49 Medications Home Medications Medication Instructions Recorded Confirmed Last Taken calcium carbonate-vitamin D3 1 tab PO BID 05/16/18 09/03/18 05/27/18 [Caltrate 600 + D] cholecalciferol (vitamin D3) 2,000 unit PO DAILY 05/16/18 09/03/18 05/27/18 [Vitamin D3] cranberry extract 500 mg PO DAILY 05/16/18 09/03/18 05/27/18 cyanocobalamin (vitamin B-12) 1,000 mcg PO DAILY 05/16/18 09/03/18 05/27/18 [Vitamin B-12] levothyroxine 125 mcg PO DAILY 05/16/18 09/03/18 05/27/18 ranitidine HCl 150 mg PO BID 05/16/18 09/03/18 05/27/18 rivaroxaban [Xarelto] 20 mg PO DAILY 05/16/18 09/03/18 05/27/18 vit C,V-Da-orabf-lutein-zeaxan 1 tab PO BID 05/16/18 09/03/18 05/27/18 [PreserVision AREDS-2] acetaminophen 1,000 mg PO BID 09/03/18 09/03/18 Unknown acetaminophen 650 mg PO Q6H PRN MDD 3GM/24HR 09/03/18 09/03/18 Unknown amlodipine 5 mg PO DAILY 09/03/18 09/03/18 Unknown dextromethorphan-guaifenesin [Safe 10 ml PO Q4H PRN 09/03/18 09/03/18 Unknown Tussin DM] glucagon (human recombinant) 1 ml IM UD PRN 09/03/18 09/03/18 Unknown [Glucagon Emergency Kit (human)] insulin NPH isoph U-100 human 10 unit SUBCUT DAILY 09/03/18 09/03/18 Unknown [Humulin N NPH Insulin KwikPen] insulin aspart U-100 [Novolog 1 sliding scale dose SUBCUT UD 09/03/18 09/03/18 Unknown U-100 Insulin aspart] insulin glargine [Lantus Solostar 20 unit SUBCUT DAILY 09/03/18 09/03/18 Unknown U-100 Insulin] metoprolol succinate 150 mg PO DAILY 09/03/18 09/03/18 Unknown sodium chloride [Saline Mist] 2 spray INTRANASAL DAILY PRN 09/03/18 09/03/18 Unknown Active Medications Generic Name Dose Route Start Last Admin Trade Name Freq PRN Reason Stop Dose Admin Acetaminophen 650 mg 09/03/18 20:53 09/09/18 08:20 Tylenol PO 10/03/18 20:52 650 mg Q4H PRN Administration Pain or Fever Cyanocobalamin 1,000 mcg 09/04/18 09:00 09/08/18 09:45 Vitamin B-12 PO 10/04/18 08:59 1,000 mcg DAILY SAVANNAH Administration Dextrose 25 - 50 ml 09/04/18 20:34 09/08/18 01:52 Dextrose 50% IV 10/04/18 20:33 25 ml UD PRN Administration Hypoglycemia Protocol Protocol Digoxin 0.125 mg 09/08/18 16:00 09/08/18 17:35 Lanoxin PO 10/08/18 15:59 0.125 mg DAILY@1600 SAVANNAH Administration Ferrous Sulfate 325 mg 09/06/18 08:00 09/08/18 17:35 Feosol PO 10/06/18 07:59 325 mg BIDM SAVANNAH Administration Furosemide 40 mg 09/07/18 17:00 09/08/18 17:35 Lasix PO 10/07/18 16:59 40 mg BID17 SAVANNAH Administration Ceftriaxone Sodium 1,000 mg in 50 mls @ 100 mls/hr 09/04/18 20:00 09/08/18 20 :48 Rocephin IV 09/13/18 19:59 Infused Q24H SAVANNAH Infusion Protocol Insulin Aspart 0 units 09/09/18 07:30 09/09/18 08:15 Novolog Flexpen SC 10/09/18 07:29 6 units DAILY@0730,1130 SAVANNAH Administration Insulin Aspart 0 units 09/08/18 16:30 09/08/18 17:34 Novolog Flexpen SC 10/08/18 16:29 6 units DAILY@1630 SAVANNAH Administration Ioversol 118 ml 09/09/18 09:40 09/09/18 09:41 Optiray 320 125ml IV 09/13/18 09:39 118 ml ONCE PRN Administration Interaction Checking Levothyroxine Sodium 125 mcg 09/04/18 06:30 09/09/18 05:37 Synthroid PO 10/04/18 06:29 125 mcg DAILYBB SAVANNAH Administration Lisinopril 2.5 mg 09/08/18 14:00 09/08/18 14:45 Zestril PO 10/08/18 13:59 2.5 mg QAM SAVANNAH Administration Metoprolol Succinate 200 mg 09/05/18 09:00 09/08/18 09:44 Toprol Xl PO 10/05/18 08:59 200 mg DAILY SAVANNAH Administration Potassium Chloride 40 meq 09/05/18 10:00 09/08/18 20:19 Klor-Con M10 PO 10/05/18 09:59 40 meq BID SAVANNAH Administration Ranitidine HCl 150 mg 09/03/18 21:00 09/08/18 20:23 Zantac PO 10/03/18 20:59 150 mg BID SAVANNAH Administration Rivaroxaban 15 mg 09/06/18 16:30 09/07/18 16:13 Xarelto PO 10/06/18 16:29 15 mg QDD SAVANNAH Administration Past Medical History Medical History Diarrhea Diabetes (Chronic) Macular degeneration (Chronic) HTN (hypertension) (Chronic) Abnormal EKG (Acute) DKA (diabetic ketoacidosis) (Acute) Epistaxis (Acute) Fever (Acute) Microcytic anemia (Acute) Nondisplaced fracture of right femur SIRS (systemic inflammatory response syndrome) (Acute) Symptomatic anemia (Acute) Acute dehydration (Acute) Acute hyperglycemia (Acute) Acute thoracic back pain (Acute) Atrial fibrillation (Chronic) Sepsis Afib Back pain Hypertension Hypothyroidism Diabetes mellitus type 2 with complications Past Family History Family History Other DM type 2 (diabetes mellitus, type 2) Hypertension Past Surgical History Surgical History Status post hysterectomy Social History Smoking Status: Never smoker Hx Alcohol Use: No Hx Substance Use: No Review of Systems Pt confused. Did not do ROS. Physical Exam Vital Signs Last Vital Signs Temp 37.1 C 09/09/18 06:58 Pulse 87 09/09/18 06:58 Resp 21 09/09/18 06:58 BP 138/61 09/09/18 06:58 Pulse Ox 97 09/09/18 06:58 Testing Laboratory Results 09/09/18 03:21 09/09/18 03:21 Blood Type O Positive 09/06/18 08:24 Antibody Screen NEGATIVE 09/06/18 08:24 PT 14.5 Seconds (9.0-12.0) H 09/03/18 15:48 INR 1.5 (0.9-1.1) H 09/03/18 15:48 APTT 31.5 Seconds (21.0-31.0) H 09/03/18 15:48 09/03/18 18:24 Blood Culture - Final Blood No growth 09/03/18 18:19 Blood Culture - Final Blood No growth 09/09/18 09/09/18 07:05 01:56 POC Glucose 297 H 286 H
[2018-09-09] MEDS ORDERED: fentaNYL citrate 100 MCG/2 ML VIAL IV PRN (11:11)
[2018-09-09] MEDS ORDERED: ATROPINE SULFATE 0.1 MG/ML 5ML SYR IV PRN (11:11)
[2018-09-09] MEDS ORDERED: ePHEDrine sulfate 50 MG/ML AMP IV PRN (11:11)
--- NOTE | 2018-09-09 11:15 | History & Physical Bridge Note ---
Date of Service September 09, 2018 History & Physical Bridge Note I have examined the patient, reviewed the History & Physical and in the interval since the performance of the History & Physical I have noted the following changes of clinical significance: no changes noted
[2018-09-09] MEDS ORDERED: BACITRACIN INJ 50,000 UNIT VIAL ONE (11:28)
--- NOTE | 2018-09-09 12:08 | Post Operative Brief Note ---
Immediate Post Op Note v1 Date of Surgery September 09, 2018 Pre & Post Diagnosis Operation Date: 09/09/18 09:00 Pre-Op Diagnosis: Left Elbow Cellulitis Post-Op Diagnosis: Left Elbow Cellulitis Procedure Operation Date: 09/09/18 09:00 Actual Procedures p Incision and Drainage Extremity(Left) - Diego Huerta DO Surgeon Diego Huerta DO Harp Maker none Estimated Blood Loss 20 Findings Consistent with Post-Op Diagnosis Fluids 300 Specimens superficial left elbow x 2 cultures Anesthesia Type MAC Complications none Disposition Disposition: Recovery Room Overlapping Procedure I was present for: the critical portions of procedure. I was immediately available: during the entire case. Back up surgeon: was not required during procedure.
[2018-09-09] MEDS ORDERED: TRAMADOL HCL 50 MG TABLET PO PRN (12:15)
--- NOTE | 2018-09-09 12:28 | Orthopedic Progress Note ---
Date of Service September 09, 2018 Assessment & Plan (1) Abscess, elbow: Status post irrigation and debridement of superficial left elbow abscess. -Patient has packing in her wound which will be pulled slowly over the next 2-3 days. -Dressing change as needed, 4 x 4's, Kerlix and Gian wrap. -Continue with standing IV antibiotic order, IV vancomycin -May restart DVT prophylaxis postoperative day #1 -Follow-up intraoperative cultures -A.m. lab -PT/OT, elbow range of motion -Ice and elevation of left upper extremity Subjective Post Operative Progress Note Patient seen in PACU, comfortable, denies complaints, pain well controlled, no acute issues. Patient still waking up from anesthesia. Constitutional: as per Subjective / HPI Physical Exam 2 Vital Signs (Past 24 Hours): Last Vital Signs Temp 37.1 C 09/09/18 06:58 Pulse 87 09/09/18 06:58 Resp 21 09/09/18 06:58 BP 138/61 09/09/18 06:58 Pulse Ox 97 09/09/18 06:58 Physical Exam: Physical exam is limited secondary to patient still waking from anesthesia. Actively moves all 5 digits. Clinic dressing is clean dry and intact, +2 radial pulse, compartment soft compressible.
--- NOTE | 2018-09-09 12:36 | Operative Report ---
Post Operative Report Date of Surgery September 09, 2018 Pre & Post Diagnosis Operation Date: 09/09/18 09:00 Pre-Op Diagnosis: Left Elbow Cellulitis Post-Op Diagnosis: Left Elbow Cellulitis Procedure Operation Date: 09/09/18 09:00 Actual Procedures p Incision and Drainage Extremity(Left) - Diego Huerta DO Surgeon Diego Huerta DO Bulk Plant Agent none Estimated Blood Loss 20 Findings Consistent with Post-Op Diagnosis Fluids 500 Specimens cultures of superficial left elbow abscess x 2 Drains 1/4 inch iodoform packing Anesthesia Type MAC Complications none Disposition Disposition: Recovery Room Indications The patient is a 88-year-old female with significant past medical history for PAF, HTN, diabetes type 2, hypothyroid, chronic anemia who presented to [facility] with complaints of with edema in her extremities and cellulitis of her left upper arm. Admitted for further inpatient treatment for CHF and left upper extremity cellulitis. Patient is a poor historian however does report that the swelling in her arm has been ongoing for 3 months and reports multiple aspiration attempts of her left elbow abscess. Denies any trauma, prior surgery to the elbow, fevers chills nausea vomiting shortness of breath or chest pain. Denies numbness and tingling of her left upper arm. Had recent admission in June for DKA and sepsis. CT scan of the left elbow confirmed superficial abscess that did not communicate with the joint. I have indicated the patient for irrigation and debridement of left elbow superficial abscess. I explained the risk benefits complications of surgery which include however not limited to infections, blood clots, acute blood loss, injury to surrounding nerves, bone, soft tissue, vessels, arthrofibrosis, chronic pain, need for additional surgery, cardiac and pulmonary events and . The patient and son agreed to proceed with surgical intervention at this time and informed consent was obtained Description of Procedure Upon arrival to the operating room the patient was transferred to the OR table. Following the application of adequate MAC anesthesia the left upper extremity was placed on the hand table and a nonsterile well-padded tourniquet was applied to the proximal aspect of the left upper arm. The left upper extremity was prepped and draped in the usual sterile manner. A time out was performed and site verified. There was a palpable mass with flutuance overlying the posterior lateral aspect of the left elbow measuring 4 x 3-1/2 cm. A 4 cm incision was made through skin and subcutaneous tissues. Immediately I identified purulent fluid which was cultured x2. The wound was irrigated with copious amounts of sterile saline solution. Fibrous tissue at the base of the abscess was debrided carefully with scapel and rongour. The wound was once again irrigated with copious amounts of sterile saline solution. When satisfied with the irrigation and debridement the skin edges were loosely approximated with 2-0 nylon suture in a simple interrupted fashion. The wound was then packed with 1/4 inch iodoform packing. Sterile dressing were then applied which included xeroform, 4x4s, abd, Webril and cullen wrap. The operative extremity was placed in a sling and the patient was awoken in the operating room and transported to the PACU in stable condition. The patient tolerated the procedure well. I attest to the content of the Intraoperative Record and any orders documented therein. Any exceptions are noted below.
[2018-09-09] MEDS: FERROUS SULFATE 325 MG TAB PO SCH ×2 (13:24→18:07)
[2018-09-09] MEDS: FUROSEMIDE 40 MG TAB PO SCH ×2 (13:24→18:07)
[2018-09-09] MEDS: CYANOCOBALAMIN 500 MCG TABLET (VITAMIN B-12) PO SCH (13:24)
[2018-09-09] MEDS: POTASSIUM CHLORIDE 10 MEQ TABCR PO SCH ×2 (13:24→20:28)
[2018-09-09] MEDS: METOPROLOL SUCC 50MG EXT REL TAB PO SCH (13:25)
[2018-09-09] MEDS: ACETAMINOPHEN 500 MG TAB PO SCH ×2 (13:26→21:44)
[2018-09-09] MEDS: POTASSIUM CHLORIDE 10 MEQ in SODIUM CHLORIDE 0.9% 1000ML 1,000 ML IV SCH (13:26)
--- NOTE | 2018-09-09 13:53 | Anesthesiology Progress Note ---
Date of Service September 09, 2018 Anesthesia Post Procedure Vital Signs Vital Signs: Temp Pulse Pulse Pulse Resp BP BP 09/09/18 12:40 36.4 C L 78 16 137/74 09/09/18 12:30 86 12 144/69 H 09/09/18 12:20 90 18 126/81 09/09/18 12:15 09/09/18 12:14 36.5 C 77 16 128/70 09/09/18 08:00 09/09/18 06:58 37.1 C 87 21 138/61 09/09/18 03:00 37.1 C 87 18 123/57 L 09/09/18 00:00 09/08/18 23:10 36.5 C 82 18 109/66 09/08/18 19:55 36.5 C 90 16 137/76 09/08/18 17:35 83 09/08/18 16:00 93 H 09/08/18 15:16 36.8 C 86 16 126/54 L Pulse Ox Pulse Ox 09/09/18 12:40 95 09/09/18 12:30 94 09/09/18 12:20 98 09/09/18 12:15 95 09/09/18 12:14 94 09/09/18 08:00 94 09/09/18 06:58 97 09/09/18 03:00 95 09/09/18 00:00 94 09/08/18 23:10 97 09/08/18 19:55 96 09/08/18 17:35 09/08/18 16:00 94 09/08/18 15:16 93 Pain Intensity Bilateral Back: Pain Intensity: 2 Notes Mental Status: alert / awake / arousable Patient Amnestic to Procedure: Yes Nausea / Vomiting: adequately controlled Pain: adequately controlled Airway Patency, RR, SpO2: stable & adequate BP & HR: stable & adequate Hydration State: stable & adequate Anesthetic Complications: no major complications apparent and Pt Satisfied with anesthetic care
--- NOTE | 2018-09-09 14:53 | Pharmacy Report ---
Glycemic Control Progress Note - Date of Service September 09, 2018 - Scope Glycemic Pharmacist consulted for glycemic control to write orders per [facility] inpatient glycemic control protocol. - Objective Accuchecks BSG(last 24 hours):: 09/08/18 09/08/18 09/09/18 16:17 20:37 01:56 Glucose POC Glucose 215 H 134 H 286 H 09/09/18 09/09/18 09/09/18 03:21 07:05 12:34 Glucose 240 H POC Glucose 297 H 79 - Recent Pertinent Medications The patient is currently receiving: * Basal insulin: Lantus 15 units every 24 hours in the morning * Correctional Insulin: Novolog Correction per scale ACHS Goal Range: Low 120 mg/dL - High 160 mg/dL Correction Factor: 25 mg/dL/unit (30 mg/dL/unit with dinner) * Prandial insulin: Per carb ratio of 1 unit per 8 grams CHO consumed ( carbohydrate ratio of 10 with dinner) - Outpatient Anti-Diabetic Meds Lantus 20 units in the morning and Novolog and NPH 10 units with breakfast - Assessment & Plan ASSESSMENT: * See progress note from 09/08/18 for more background info, in short: * Pt receiving SQ basal bolus insulin regimen for hyperglycemia secondary to baseline DM (outpatient regimen on hold). Patient was NPO today for drainage of cyst on her elbow. Now ordered a diet. * Patient is currently receiving an average of 57 units of insulin per day * 15 units of basal insulin * 42 units of prandial/correctional insulin * BSGs ranging 38 - 443 mg/dl over the past 24hrs * Changes needed to insulin regimen: * AM Fasting BSG = 297 mg/dl. This is ABOVE goal range for patient based on inpatient targets and co-morbidities. Patient's blood sugar prior to bedtime last night was 134 mg/dL. She received no insulin. Previously, when patient receives insulin prior to bed her blood sugar drops precipitously. It also does not appear to be a lack of basal insulin as patient typically requires between 15-20 units/day with 16 units appearing to be the most appropriate. Only gave 12 units this morning since patient was NPO for procedure. Initiate a scale for tomorrow morning. * Post-prandial BSGs appeared to trend downwards. Agree with plan set up by yesterday's pharmacist. Previously it appeared that CF of 20/ CR of 5 was the most effectively. This was not instituted today since patient was NPO. Patient' s blood sugars do wildly fluctuate - for example blood sugar this morning was 297 mg/dL and then 79 mg/dL before lunch. Will monitor. * Total daily dose = 40-60 units. This is based on previous hospitalizations. Will monitor. PLAN FOR INPATIENT GLYCEMIC CONTROL: * Continuing Lantus 10-15 units SQ in the morning * 10 units if blood sugar under 100 mg/dL * 12 units if blood sugar 100-140 mg/dL * 15 units if blood sugar greater than 140 mg/dL * Continuing correction factor of 25 mg/dl/unit (30 mg/dL/unit with dinner) * Continuing carb ratio of 1 unit per 8 grams CHO consumed (carbohydrate ratio of 10 with dinner) * Continuing goal range to Low 120 mg/dL - High 160 mg/dL Thank you.
[2018-09-09] MEDS: DIGOXIN 0.125 MG TAB PO SCH (17:18)
[2018-09-09] MEDS: LISINOPRIL 2.5 MG TAB PO SCH (17:18)
[2018-09-09] MEDS: RIVAROXABAN 15 MG TAB PO SCH (18:07)
[2018-09-09] MEDS: DOCUSATE SODIUM 100 MG CAP PO SCH (20:28)
[2018-09-09] MEDS: cefTRIAXone SODIUM 1,000 MG/50 ML BAG IV SCH (20:29)
[2018-09-10] MEDS: POTASSIUM CHLORIDE 10 MEQ in SODIUM CHLORIDE 0.9% 1000ML 1,000 ML IV SCH (01:36)
[2018-09-10] MEDS: VANCOMYCIN HCL 1,000 MG in SODIUM CHLORIDE 0.9% 250 ML IV SCH (05:55)
[2018-09-10] MEDS: ACETAMINOPHEN 500 MG TAB PO SCH ×3 (05:56→21:58)
[2018-09-10] MEDS: LEVOTHYROXINE SODIUM 125 MCG TABLET PO SCH (05:56)
[2018-09-10 06:22] LABS: Hematocrit (blood only) 31.8 % (37-47); Mean Corpuscular Hgb Conc 28.3 g/dL (32-36); Mean Corpuscular Volume 76.4 fL (80-100); Mean Platelet Volume 9.9 fL (7.4-10.4); Platelet Count 270 K/uL (130-400); RDW Coefficient of Variation 21.1 % (11.5-14.5); RDW Standard Deviation 52.6 fL (36.4-46.3); Red Blood Count 4.16 M/uL (4.2-5.4); White Blood Count 9.02 K/uL (4.8-10.8)
[2018-09-10 06:42] LABS: BUN Creatinine Ratio 21.6 (10-20); Calcium 8.5 mg/dl (8.5-10.1); Creatinine Clr Calc Pharmacy 30.9 ml/min; Est GFR (African American) 55.6; Est GFR (Non-African American) 47.9; Potassium 4.2 mmol/L (3.5-5.1)
[2018-09-10 06:47] LABS: Anisocytosis Present; Basophils # (auto) 0.05 K/uL (0-0.2); Basophils % (auto) 0.6 %; Eosinophils # (auto) 0.16 K/uL (0-0.5); Eosinophils % (auto) 1.8 %; Hypochromasia Present; Immature Granulocytes # (auto) 0.09 K/uL (0.00-0.02); Lymphocytes # (auto) 1.39 K/uL (1.2-3.4); Lymphocytes % (auto) 15.4 %; Monocytes # (auto) 1.17 K/uL (0.11-0.59); Neutrophils # (auto) 6.16 K/uL (1.4-6.5); Neutrophils % (auto) 68.2 %
[2018-09-10] MEDS: CYANOCOBALAMIN 500 MCG TABLET (VITAMIN B-12) PO SCH (07:54)
[2018-09-10] MEDS: FERROUS SULFATE 325 MG TAB PO SCH ×2 (07:54→17:03)
[2018-09-10] MEDS: FUROSEMIDE 40 MG TAB PO SCH ×2 (07:54→17:04)
[2018-09-10] MEDS: POTASSIUM CHLORIDE 10 MEQ TABCR PO SCH ×2 (07:54→20:17)
[2018-09-10] MEDS: DOCUSATE SODIUM 100 MG CAP PO SCH ×2 (07:54→20:16)
[2018-09-10] MEDS: METOPROLOL SUCC 50MG EXT REL TAB PO SCH (07:55)
[2018-09-10] MEDS: LISINOPRIL 2.5 MG TAB PO SCH (07:55)
--- NOTE | 2018-09-10 07:55 | Orthopedic Progress Note ---
Date of Service September 10, 2018 Assessment & Plan (1) Abscess, elbow: POD#1 Irrigation and debridement of superficial left elbow abscess. -Dressing changed this morning and about 6 inches of packing pulled. -Dressing change as needed, 4 x 4's, Kerlix and Gian wrap. -Continue with standing IV antibiotic order, IV vancomycin -May restart DVT prophylaxis today -Follow-up intraoperative cultures -A.m. labs Hgb stable at 9.1, kidney function stable. -PT/OT, elbow range of motion -Ice and elevation of left upper extremity -Cultures growing staph I've personally seen and examined the patient, agree with above assessment and plan. Subjective Patient seen sitting in bedside chair, comfortable, denies complaints, not having any elbow pain this morning no acute issues. Constitutional: as per Subjective / HPI Physical Exam 2 Vital Signs (Past 24 Hours): Last Vital Signs Temp 36.5 C 09/10/18 07:31 Pulse 90 09/10/18 07:31 Resp 22 09/10/18 07:31 BP 148/89 H 09/10/18 07:31 Pulse Ox 98 09/10/18 07:31 Physical Exam: Dressing was c/d/i. This was removed. Packing in place. Mild erythema at skin edges, minimal drainage. No purulence noted. N/V status intact. Fingers mobile.
[2018-09-10] MEDS: INSULIN GLARGINE SOLOSTAR 100 UNITS/ML 3 ML PEN SC SCH (07:56)
[2018-09-10] MEDS: INSULIN ASPART 100 UNITS/ML 3 ML PEN SC SCH ×3 (07:59→18:41)
--- NOTE | 2018-09-10 09:28 | Cardiology Progress Note ---
Date of Service September 10, 2018 Assessment & Plan (1) CHF (congestive heart failure): The patient is now well compensated on her oral diuretic regimen. (2) Left ventricular dysfunction: Mild left ventricular dysfunction with an ejection fraction of 40-45%. Hopefully her ejection fraction will normalize with a controlled ventricular response to her atrial fibrillation. (3) Afib: His rate is now well controlled on metoprolol and digoxin. (4) Anemia: Management per medical team. Subjective The patient is resting comfortable in the bedside chair without complaints of chest pain, dyspnea, or palpitations. She is anxious from hospital discharge. Physical Exam 2 Vital Signs (Past 24 Hours): Last Vital Signs Temp 36.5 C 09/10/18 07:31 Pulse 90 09/10/18 07:31 Resp 22 09/10/18 07:31 BP 148/89 H 09/10/18 07:31 Pulse Ox 98 09/10/18 07:31 Physical Exam: In general is well-developed well-nourished elderly white female seated in a chair without complaints. HEENT exam is negative. Neck is supple with full carotid upstrokes. There are no obvious bruits. Jugular venous pressure is flat at 90. There is no thyromegaly. Cardiovascular exam reveals an irregular regular rhythm with distant heart sounds. A 2/6 systolic murmurs heard along left sternal border. Lungs are clear without rales, rhonchi , or wheezes. Abdomen is soft without bruits. Extremities reveal intact radial artery pulses bilaterally. There is no peripheral edema. Results & Data Laboratory Results Laboratory Results - last 24 hr 09/09/18 09/09/18 09/09/18 12:34 13:20 16:25 WBC RBC Hgb Hct MCV MCH MCHC RDW Std Deviation RDW Coeff of Chris Plt Count MPV Immature Gran % (Auto) Neut % (Auto) Lymph % (Auto) [place] % (Auto) Eos % (Auto) Baso % (Auto) Immature Gran # (Auto) Neut # (Auto) Lymph # (Auto) [place] # (Auto) Eos # (Auto) Baso # (Auto) Hypochromasia Anisocytosis Sodium Potassium Chloride Carbon Dioxide Anion Gap BUN Creatinine Est Cr Clr Drug Dosing Est GFR ( Amer) Est GFR (Non-Af Amer) BUN/Creatinine Ratio Glucose POC Glucose 79 203 H Calcium 25-OH Vitamin D Total 38.8 09/09/18 09/10/18 09/10/18 20:15 05:55 05:55 WBC 9.02 RBC 4.16 L Hgb 9.0 L Hct 31.8 L MCV 76.4 L MCH 21.6 L MCHC 28.3 L RDW Std Deviation 52.6 H RDW Coeff of Chris 21.1 H Plt Count 270 MPV 9.9 Immature Gran % (Auto) 1.0 Neut % (Auto) 68.2 Lymph % (Auto) 15.4 [place] % (Auto) 13.0 Eos % (Auto) 1.8 Baso % (Auto) 0.6 Immature Gran # (Auto) 0.09 H Neut # (Auto) 6.16 Lymph # (Auto) 1.39 [place] # (Auto) 1.17 H Eos # (Auto) 0.16 Baso # (Auto) 0.05 Hypochromasia Present Anisocytosis Present Sodium 135 L Potassium 4.2 Chloride 99 Carbon Dioxide 29 Anion Gap 7.0 BUN 23 H Creatinine 1.04 Est Cr Clr Drug Dosing 30.9 Est GFR ( Amer) 55.6 Est GFR (Non-Af Amer) 47.9 BUN/Creatinine Ratio 21.6 H Glucose 241 H POC Glucose 174 H Calcium 8.5 25-OH Vitamin D Total 09/10/18 07:26 WBC RBC Hgb Hct MCV MCH MCHC RDW Std Deviation RDW Coeff of Chris Plt Count MPV Immature Gran % (Auto) Neut % (Auto) Lymph % (Auto) [place] % (Auto) Eos % (Auto) Baso % (Auto) Immature Gran # (Auto) Neut # (Auto) Lymph # (Auto) [place] # (Auto) Eos # (Auto) Baso # (Auto) Hypochromasia Anisocytosis Sodium Potassium Chloride Carbon Dioxide Anion Gap BUN Creatinine Est Cr Clr Drug Dosing Est GFR ( Amer) Est GFR (Non-Af Amer) BUN/Creatinine Ratio Glucose POC Glucose 277 H Calcium 25-OH Vitamin D Total Diagnostic Findings clinical research monitor notes atrial fibrillation with a controlled ventricular response. _ (1) CHF (congestive heart failure) Heart failure chronicity: acute on chronic Heart failure type: combined systolic and diastolic Qualified Code(s): I50.43 - Acute on chronic combined systolic (congestive) and diastolic (congestive) heart failure (2) Anemia Anemia type: iron deficiency Bone marrow failure anemia type: Chronic kidney disease stage: Folate deficiency anemia type: Hemolytic anemia type: Iron deficiency anemia type: unspecified iron deficiency Other causes of anemia: Vitamin B12 deficiency anemia type: Qualified Code(s): D50.9 - Iron deficiency anemia, unspecified
--- NOTE | 2018-09-10 09:31 | Anesthesiology Progress Note ---
Date of Service September 10, 2018 Anesthesia Post Procedure Vital Signs Vital Signs: Temp Pulse Pulse Resp BP Pulse Ox 09/10/18 07:31 36.5 C 90 22 148/89 H 98 09/10/18 02:15 36.7 C 92 H 18 118/70 97 09/09/18 23:10 36.4 C L 85 18 131/66 99 09/09/18 20:30 81 09/09/18 19:27 36.8 C 82 16 124/88 99 09/09/18 16:00 68 18 132/64 93 09/09/18 15:23 36.4 C L 77 18 136/62 96 09/09/18 14:45 68 134/71 09/09/18 13:45 36.9 C 71 16 138/67 94 09/09/18 12:40 36.4 C L 78 16 137/74 95 09/09/18 12:30 86 12 144/69 H 94 09/09/18 12:20 90 18 126/81 98 09/09/18 12:15 95 09/09/18 12:14 36.5 C 77 16 128/70 94 Pain Intensity Bilateral Back: Pain Intensity: 2 Notes Mental Status: alert / awake / arousable and participated in evaluation Patient Amnestic to Procedure: Yes Nausea / Vomiting: adequately controlled Pain: adequately controlled Airway Patency, RR, SpO2: stable & adequate BP & HR: stable & adequate Hydration State: stable & adequate Anesthetic Complications: no major complications apparent and Pt Satisfied with anesthetic care
--- NOTE | 2018-09-10 10:42 | Pharmacy Report ---
PHA: Glycemic Control AP - Date of Service September 10, 2018 - Assessment & Plan The patient is currently receiving: * Basal insulin: Lantus SC QAM per sliding scale * 09/08: 15 units * 09/09: 12 units * 09/10: 14 units * Correctional Insulin: Novolog Correction per scale ACHS Goal Range: Low 120 mg/dL - High 160 mg/dL Correction Factor: 25 mg/dL/unit (30 mg/dL/unit with dinner) * Prandial insulin: Per carb ratio of 1 unit per 8 grams CHO consumed ( carbohydrate ratio of 10 with dinner) Outpatient Anti-Diabetic Meds Lantus 20 units in the morning and Novolog and NPH 10 units with breakfast ASSESSMENT: * See progress note from 09/08/18 for more background info, in short: * Pt receiving SQ basal bolus insulin regimen for hyperglycemia secondary to baseline DM (outpatient regimen on hold). POD 1 s/p I&D of elbow abscess * Of note, this patient is known to our service and has a few patient-specific insulin considerations * Previously, when patient receives insulin prior to bed her blood sugar drops precipitously * Blood sugars also tend to wildly fluctuate * AM fasting above goal today at 277 mg/dL, likely 2nd lower dose of Lantus 12 units yesterday AM. Dose increased slightly today. Of note, even small adjustments of Lantus for this patient can have a profound effect on AM fasting BSG (severe hypoglycemia noted previous admission with only 18 units Lantus administered the day prior) * OK to tighten correction factor and carb ratio back similar to previous admissions - selected very slightly looser CHO ratio for now as patient is likely at risk for repeat hypoglycemia 2nd likely hepatic glycogen depletion evidenced by recent BSG of 38 mg/dL on 09/08 * Will continue to avoid correction of HS BSG and additinoal PM Lantus administration to help prevent precipitous drop overnight * Will give small IV dose at lunch today (in addition to tighter Novolog parameters) since BSG >300 mg/dL PLAN * Regular insulin 4 units IV x1 @ lunch * Lantus SC qAM based on BSG * 10 units for BSG less than 100 mg/dL * 12 units for BSG 100-140 mg/dL * 14 units for BSG 141-180 mg/dL * 16 units for BSG greater than 180 mg/dL * Novolog AC (no HS) * Goal range: 120-160 mg/dL * Correction factor: 20 mg/dL/unit * Carb ratio: 6 g CHO/unit Pharmacy will continue to monitor patient daily and write orders per [facility] inpatient glycemic control protocol. Thanks. * Please note that the plan above was derived based on current level of insulin resistance and hospital stress. These recommendations are appropriate for inpatient admission only. Plan of care upon discharge will need to be reassessed to avoid potential outpatient hypo/hyperglycemia.
--- NOTE | 2018-09-10 11:51 | Hospitalist Progress Note ---
Date of Service September 10, 2018 Assessment & Plan (1) Acute on chronic systolic heart failure: (2) Abscess, elbow: (3) Cellulitis: (4) Iron deficiency anemia: (5) Atrial fibrillation: (6) Chronic kidney disease with symptom management only, stage 3 (moderate): (7) Diabetes mellitus type 2 with complications: (8) Hypothyroidism: (9) Hypertension: (10) Pulmonary HTN: (11) Mitral regurgitation: (12) Tricuspid regurgitation: (13) DVT prophylaxis: 88-year-old white female with past medical history of hypertension, DKA, CKD, CHF admitted on Aug CHF exacerbation, Acute on chronic systolic heart failure: Compensated, Cont BB, low-dose CHERYL, and lasix BID by mouth. Left elbow staph A positive abscess, left elbow cellulitis: procedure for abscess was done by orthopedic surgeon, continue dressing changes, continue antibiotic of iv vanco follow-up culture and sensitivity Chronic iron deficiency anemia: Continue on on ferrous sulfate supplementation. Stool fecal occult was negative. Will need a minimum of 4-6 months of oral Fe replacement if she can tolerate. Need to follow-up with PCP, Atrial fibrillation: Rate control, continue beta-alisia, has restarted Xarelto after procedure, Chronic kidney disease with symptom management only, stage 3 (moderate): Stable, 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: Blood glucose fluctuation a lot, continue pharmacy glycemic control, Hypothyroidism, hypertension, Pulmonary HTN, Mitral regurgitation, Tricuspid regurgitation: Stable continue current DVT prophylaxis: Continue on Xalreto Discussed with patient and patient's son, answered all the questions, will order PT OT, patient is DNR Subjective Per nursing staff patient was mild confused this morning, patient reported she was in [place], and disorientated to the year When I interview with her, son was in the bedside, patient was awake alert orientated x3, only reported her son's name wrong, otherwise she was feeding herself, conversational, no complaint Review of Systems Constitutional: Positive weakness, or fatigue Respiratory: no cough, sputum, wheezing, Cardiac: No chest pain, No orthopnea, Abdomen: No pain, No nausea, No vomiting, No diarrhea, Musculoskeletal: Left elbow pain however is well controlled, no other joint pain, No muscle pain, : No dysuria, No urinary frequency, Neurologic: No paralysis, No weakness, Psychiatric: No depression symptoms, No anhedonism, Heme: No abnormal bleeding/bruising, No clotting problems, Skin: No rash, No itch, No new/changing skin lesions, No color change, No bleeding Physical Exam 2 Vital Signs (Past 24 Hours): Last Vital Signs Temp 36.5 C 09/10/18 07:31 Pulse 90 09/10/18 07:31 Resp 22 09/10/18 07:31 BP 148/89 H 09/10/18 07:31 Pulse Ox 98 09/10/18 07:31 Physical Exam: General Appearance: Thin, frail, chronically ill looking, WD/WN , no apparent distress, Eyes: normal inspection, PERRL, EOMI, sclerae normal ENT: normal ENT inspection, hearing grossly normal, pharynx normal Neck: supple, no adenopathy, thyroid normal, no JVD, no carotid bruits, trachea midline Respiratory/Chest: chest non-tender, significant decreased breath sounds, occasional wheezing, Cardiovascular: irregular rate, rhythm, no JVD, no murmur Abdomen: normal bowel sounds, non tender, soft, no organomegaly, Extremities: Afebrile insulin, fingers no cyanosis radial pulse positive, 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, no motor/sensory deficits, alert, normal mood/affect, oriented x 3 Skin: normal color, warm/dry, no rash Lymphatic: no adenopathy Results & Data Laboratory Results Laboratory Results - last 24 hr 09/09/18 09/09/18 09/09/18 12:34 13:20 16:25 WBC RBC Hgb Hct MCV MCH MCHC RDW Std Deviation RDW Coeff of Chris Plt Count MPV Immature Gran % (Auto) Neut % (Auto) Lymph % (Auto) [place] % (Auto) Eos % (Auto) Baso % (Auto) Immature Gran # (Auto) Neut # (Auto) Lymph # (Auto) [place] # (Auto) Eos # (Auto) Baso # (Auto) Hypochromasia Anisocytosis Sodium Potassium Chloride Carbon Dioxide Anion Gap BUN Creatinine Est Cr Clr Drug Dosing Est GFR ( Amer) Est GFR (Non-Af Amer) BUN/Creatinine Ratio Glucose POC Glucose 79 203 H Calcium 25-OH Vitamin D Total 38.8 09/09/18 09/10/18 09/10/18 20:15 05:55 05:55 WBC 9.02 RBC 4.16 L Hgb 9.0 L Hct 31.8 L MCV 76.4 L MCH 21.6 L MCHC 28.3 L RDW Std Deviation 52.6 H RDW Coeff of Chris 21.1 H Plt Count 270 MPV 9.9 Immature Gran % (Auto) 1.0 Neut % (Auto) 68.2 Lymph % (Auto) 15.4 [place] % (Auto) 13.0 Eos % (Auto) 1.8 Baso % (Auto) 0.6 Immature Gran # (Auto) 0.09 H Neut # (Auto) 6.16 Lymph # (Auto) 1.39 [place] # (Auto) 1.17 H Eos # (Auto) 0.16 Baso # (Auto) 0.05 Hypochromasia Present Anisocytosis Present Sodium 135 L Potassium 4.2 Chloride 99 Carbon Dioxide 29 Anion Gap 7.0 BUN 23 H Creatinine 1.04 Est Cr Clr Drug Dosing 30.9 Est GFR ( Amer) 55.6 Est GFR (Non-Af Amer) 47.9 BUN/Creatinine Ratio 21.6 H Glucose 241 H POC Glucose 174 H Calcium 8.5 25-OH Vitamin D Total 09/10/18 09/10/18 07:26 11:48 WBC RBC Hgb Hct MCV MCH MCHC RDW Std Deviation RDW Coeff of Chris Plt Count MPV Immature Gran % (Auto) Neut % (Auto) Lymph % (Auto) [place] % (Auto) Eos % (Auto) Baso % (Auto) Immature Gran # (Auto) Neut # (Auto) Lymph # (Auto) [place] # (Auto) Eos # (Auto) Baso # (Auto) Hypochromasia Anisocytosis Sodium Potassium Chloride Carbon Dioxide Anion Gap BUN Creatinine Est Cr Clr Drug Dosing Est GFR ( Amer) Est GFR (Non-Af Amer) BUN/Creatinine Ratio Glucose POC Glucose 277 H 347 H Calcium 25-OH Vitamin D Total Microbiology 09/09/18 11:44 Elbow,Left Gram Stain - Final 09/09/18 11:44 Elbow,Left Aerobic and Anaerobic Culture - Preliminary Staphylococcus aureus 09/03/18 18:24 Blood Blood Culture - Final No growth 09/03/18 18:19 Blood Blood Culture - Final No growth _ (1) Cellulitis Laterality: left Site of cellulitis: extremity Site of cellulitis of extremity: upper extremity Site of cellulitis of trunk: Qualified Code(s): L03.114 - Cellulitis of left upper limb (2) Iron deficiency anemia Iron deficiency anemia type: unspecified iron deficiency Qualified Code(s): D50.9 - Iron deficiency anemia, unspecified (3) Atrial fibrillation Atrial fibrillation type: chronic Qualified Code(s): I48.2 - Chronic atrial fibrillation (4) Diabetes mellitus type 2 with complications Diabetes mellitus long term care administrator insulin use: with penitentiary use Qualified Code(s) : E11.8 - Type 2 diabetes mellitus with unspecified complications; Z79.4 - MCC (current) use of insulin (5) Hypothyroidism Hypothyroidism type: acquired Qualified Code(s): E03.9 - Hypothyroidism, unspecified (6) Hypertension Hypertension type: essential hypertension Qualified Code(s): I10 - Essential (primary) hypertension (7) Mitral regurgitation Cardiac valve disease etiology: etiology unspecified Qualified Code(s): I34.0 - Nonrheumatic mitral (valve) insufficiency (8) Tricuspid regurgitation Cardiac valve disease etiology: nonrheumatic Qualified Code(s): I36.1 - Nonrheumatic tricuspid (valve) insufficiency
[2018-09-10] MEDS ORDERED: INSULIN HUMAN REGULAR PER UNIT 4 UNITS in SYRINGE 3.96 ML IV STA (12:32)
[2018-09-10] MEDS: DIGOXIN 0.125 MG TAB PO SCH (17:01)
[2018-09-10] MEDS: RIVAROXABAN 15 MG TAB PO SCH (17:02)
[2018-09-10] MEDS: cefTRIAXone SODIUM 1,000 MG/50 ML BAG IV SCH (20:15)
[2018-09-10] MEDS ORDERED: Nursing to Pharmacy Communication ONE (21:17)
[2018-09-11] MEDS: VANCOMYCIN HCL 1,000 MG in SODIUM CHLORIDE 0.9% 250 ML IV SCH (05:39)
[2018-09-11] MEDS: LEVOTHYROXINE SODIUM 125 MCG TABLET PO SCH (05:39)
[2018-09-11] MEDS: ACETAMINOPHEN 500 MG TAB PO SCH ×3 (06:12→22:27)
[2018-09-11 06:53] LABS: Creatinine Clr Calc Pharmacy 33.2 ml/min; Est GFR (African American) 60.4; Est GFR (Non-African American) 52.1
[2018-09-11 07:14] LABS: Anisocytosis Present; Basophils # (auto) 0.03 K/uL (0-0.2); Basophils % (auto) 0.3 %; Eosinophils # (auto) 0.12 K/uL (0-0.5); Eosinophils % (auto) 1.3 %; Hematocrit (blood only) 31.7 % (37-47); Hemoglobin 9.2 g/dL (12.0-16.0); Hypochromasia Present; Immature Granulocytes # (auto) 0.07 K/uL (0.00-0.02); Immature Granulocytes % (auto) 0.8 %; Lymphocytes % (auto) 12.9 %; Mean Corpuscular Volume 75.7 fL (80-100); Mean Platelet Volume 10.3 fL (7.4-10.4); Monocytes # (auto) 1.05 K/uL (0.11-0.59); Monocytes % (auto) 11.3 %; Neutrophils % (auto) 73.4 %; Platelet Count 262 K/uL (130-400); RDW Coefficient of Variation 21.7 % (11.5-14.5); RDW Standard Deviation 52.1 fL (36.4-46.3); Red Blood Count 4.19 M/uL (4.2-5.4); White Blood Count 9.27 K/uL (4.8-10.8)
[2018-09-11] MEDS: CYANOCOBALAMIN 500 MCG TABLET (VITAMIN B-12) PO SCH (08:39)
[2018-09-11] MEDS: LISINOPRIL 2.5 MG TAB PO SCH (08:39)
[2018-09-11] MEDS: FUROSEMIDE 40 MG TAB PO SCH ×2 (08:39→17:02)
[2018-09-11] MEDS: POTASSIUM CHLORIDE 10 MEQ TABCR PO SCH ×2 (08:39→20:53)
[2018-09-11] MEDS: DOCUSATE SODIUM 100 MG CAP PO SCH ×2 (08:40→21:23)
[2018-09-11] MEDS: FERROUS SULFATE 325 MG TAB PO SCH ×2 (08:40→17:04)
[2018-09-11] MEDS: METOPROLOL SUCC 50MG EXT REL TAB PO SCH (08:40)
[2018-09-11] MEDS: INSULIN ASPART 100 UNITS/ML 3 ML PEN SC SCH ×5 (08:40→20:58)
[2018-09-11] MEDS: INSULIN GLARGINE SOLOSTAR 100 UNITS/ML 3 ML PEN SC SCH ×2 (08:43→20:56)
--- NOTE | 2018-09-11 09:05 | Orthopedic Progress Note ---
Date of Service September 11, 2018 Assessment & Plan (1) Abscess, elbow: POD#2 Irrigation and debridement of superficial left elbow abscess. -Cx growing MRSA -Dressing change as needed, 4 x 4's, Kerlix and Gian wrap. -Continue with standing IV antibiotic order, IV vancomycin -PT/OT, elbow range of motion -Ice and elevation of left upper extremity Subjective Pt awake, alert, up in chair eating breakfast. State she has some pain in the elbow off and on but is tolerable. No other complaints at this time. Physical Exam 2 Vital Signs (Past 24 Hours): Last Vital Signs Temp 36.4 C L 09/10/18 22:53 Pulse 83 09/11/18 07:10 Resp 15 09/11/18 07:10 BP 127/67 09/11/18 07:10 Pulse Ox 91 09/11/18 07:10 Physical Exam: Dressings removed. Mild drainage on older dressing. Mild erythema around the wound. 6-7" of packing removed. Mild purulence noted on the packing. Redressed.
--- NOTE | 2018-09-11 09:17 | Infectious Disease Consult ---
Date of Consultation September 11, 2018 Assessment & Plan (1) Abscess of bursa, left elbow: can change to po doxy 100mg po bid x 14 more days. local care to wound. 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 had ortho eval on 09/09 - ct revealed 3 cm abscess left elbow, went to OR on 09/09 - I&D - culture grew MRSA. pt has been on rocephin and vanco. afebrile since admission. tolerating abx. wbc nml. creat nml. admission blood cultures negative and final. some pain in arm but controlled. no cp, sob, cough, no n/v/d/abd pain. Allergies Allergy/AdvReac Type Severity Reaction Status Date / Time erythromycin base Allergy Unknown Unverified 09/03/18 16:49 Home Medications Home Medications Medication Instructions Recorded Confirmed Type calcium carbonate-vitamin D3 1 tab PO BID 05/16/18 09/03/18 History [Caltrate 600 + D] cholecalciferol (vitamin D3) 2,000 unit PO DAILY 05/16/18 09/03/18 History [Vitamin D3] cranberry extract 500 mg PO DAILY 05/16/18 09/03/18 History cyanocobalamin (vitamin B-12) 1,000 mcg PO DAILY 05/16/18 09/03/18 History [Vitamin B-12] levothyroxine 125 mcg PO DAILY 05/16/18 09/03/18 History ranitidine HCl 150 mg PO BID 05/16/18 09/03/18 History rivaroxaban [Xarelto] 20 mg PO DAILY 05/16/18 09/03/18 History vit C,I-Ct-dnjpq-lutein-zeaxan 1 tab PO BID 05/16/18 09/03/18 History [PreserVision AREDS-2] acetaminophen 1,000 mg PO BID 09/03/18 09/03/18 History acetaminophen 650 mg PO Q6H PRN MDD 3GM/24HR 09/03/18 09/03/18 History amlodipine 5 mg PO DAILY 09/03/18 09/03/18 History dextromethorphan-guaifenesin [Safe 10 ml PO Q4H PRN 09/03/18 09/03/18 History Tussin DM] glucagon (human recombinant) 1 ml IM UD PRN 09/03/18 09/03/18 History [Glucagon Emergency Kit (human)] insulin NPH isoph U-100 human 10 unit SUBCUT DAILY 09/03/18 09/03/18 History [Humulin N NPH Insulin KwikPen] insulin aspart U-100 [Novolog 1 sliding scale dose SUBCUT UD 09/03/18 09/03/18 History U-100 Insulin aspart] insulin glargine [Lantus Solostar 20 unit SUBCUT DAILY 09/03/18 09/03/18 History U-100 Insulin] metoprolol succinate 150 mg PO DAILY 09/03/18 09/03/18 History sodium chloride [Saline Mist] 2 spray INTRANASAL DAILY PRN 09/03/18 09/03/18 History Patient History Medical History Diarrhea Diabetes (Chronic) Macular degeneration (Chronic) HTN (hypertension) (Chronic) Abnormal EKG (Acute) DKA (diabetic ketoacidosis) (Acute) Epistaxis (Acute) Fever (Acute) Microcytic anemia (Acute) Nondisplaced fracture of right femur SIRS (systemic inflammatory response syndrome) (Acute) Symptomatic anemia (Acute) Acute dehydration (Acute) Acute hyperglycemia (Acute) Acute thoracic back pain (Acute) Atrial fibrillation (Chronic) Sepsis Afib Back pain Hypertension Hypothyroidism Diabetes mellitus type 2 with complications Surgical History Status post hysterectomy Family History Other DM type 2 (diabetes mellitus, type 2) Hypertension Social History Current Living Situation: Personal Care Facility Current Living Situation Comment: Pt currently lives alone, with family checking in on her and caregiver. Feels Safe at Home: Yes Safety Concerns: Feels Safe At This Time Smoking Status: Never smoker Hx Alcohol Use: No Hx Substance Use: No Beliefs That Will Affect Care: None Communication Ability: Effective Review of Systems remaining ros reviewed and are negative Physical Exam 2 Vital Signs (Past 24 Hours): Last Vital Signs Temp 36.4 C L 12/31/18 22:53 Pulse 83 09/11/18 07:10 Resp 15 09/11/18 07:10 BP 127/67 09/11/18 07:10 Pulse Ox 91 09/11/18 07:10 Constitutional: WD/WN, vitals as above Eyes: PERRL, conjunctivae normal, anicteric sclerae ENMT: external ear and nose normal, oropharynx normal Neck: normal visual inspection Respiratory: normal respiratory effort, lungs clear to auscultation Cardiovascular: RRR, no murmur, no edema Gastrointestinal (Abdomen): normal bowel sounds, soft, nontender, no hepatosplenomegaly Musculoskeletal: no cyanosis or clubbing, extremities motor strength 5/5 Skin: no rashes, warm and dry lue dressing c/d/i Psychiatric: A+Ox3, euthymic affect Results & Data Laboratory Results Microbiology 09/09/18 11:44 Elbow,Left Gram Stain - Final 09/09/18 11:44 Elbow,Left Aerobic and Anaerobic Culture - Preliminary Staph aureus MRSA 09/03/18 18:24 Blood Blood Culture - Final No growth 09/03/18 18:19 Blood Blood Culture - Final No growth
[2018-09-11] MEDS ORDERED: PHARMACY GLYCEMIC MGMT CONSULT STA (09:55)
--- NOTE | 2018-09-11 10:38 | Hospitalist Progress Note ---
Date of Service September 11, 2018 Assessment & Plan (1) Acute on chronic systolic heart failure: (2) Abscess, elbow: (3) Cellulitis: (4) Iron deficiency anemia: (5) Atrial fibrillation: (6) Chronic kidney disease with symptom management only, stage 3 (moderate): (7) Diabetes mellitus type 2 with complications: (8) Hypothyroidism: (9) Hypertension: (10) Pulmonary HTN: (11) Mitral regurgitation: (12) Tricuspid regurgitation: (13) DVT prophylaxis: 88-year-old white female with past medical history of hypertension, DKA, CKD, CHF admitted on Aug CHF exacerbation, Acute on chronic systolic heart failure: CompensatedIn stable, Cont BB, low- dose CHERYL, and lasix BID by mouth. Left elbow MRSA abscess, left elbow cellulitis: procedure for abscess was done by orthopedic surgeon, continue dressing changes, has been on iv vanco, Will change to doxycycline for additional 14 days per infectious disease recommendation, Continue wound care in dress changes, Chronic iron deficiency anemia: Stable, Continue on on ferrous sulfate supplementation. Stool fecal occult was negative. Will need a minimum of 4-6 months of oral Fe replacement if she can tolerate. Need to follow-up with PCP, Atrial fibrillation: Rate control, continue beta-alisia, has restarted Xarelto after procedure, Chronic kidney disease with symptom management only, stage 3 (moderate): Stable, 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: Blood glucose fluctuation a lot, continue pharmacy glycemic control, Hypothyroidism, hypertension, Pulmonary HTN, Mitral regurgitation, Tricuspid regurgitation: Stable continue current DVT prophylaxis: Continue on Xalreto Discussed with patient and patient's son, answered all the questions, Patient is from [facility], possible discharge tomorrow Subjective doing well, as awake alert orientated x3, conversational, no complaint Left elbow dressing change was done by orthopedic team, Appetite good eating well, Review of Systems Constitutional: Positive weakness, or fatigue Respiratory: no cough, sputum, wheezing, Cardiac: No chest pain, No orthopnea, Abdomen: No pain, No nausea, No vomiting, No diarrhea, Musculoskeletal: Left elbow pain however is well controlled, no other joint pain, No muscle pain, : No dysuria, No urinary frequency, Neurologic: No paralysis, No weakness, Psychiatric: No depression symptoms, No anhedonism, Heme: No abnormal bleeding/bruising, No clotting problems, Skin: No rash, No itch, No new/changing skin lesions, Physical Exam 2 Vital Signs (Past 24 Hours): Last Vital Signs Temp 36.4 C L 09/10/18 22:53 Pulse 83 09/11/18 07:10 Resp 15 09/11/18 07:10 BP 127/67 09/11/18 07:10 Pulse Ox 91 09/11/18 07:10 Physical Exam: General Appearance: frail, chronically ill looking, Looks better than yesterday, WD/WN, no apparent distress, Eyes: normal inspection, PERRL, EOMI, sclerae normal ENT: normal ENT inspection, hearing grossly normal, pharynx normal Neck: supple, no adenopathy, thyroid normal, no JVD, no carotid bruits, trachea midline Respiratory/Chest: chest non-tender, significant decreased breath sounds, occasional wheezing, Cardiovascular: irregular rate, rhythm, no JVD, no murmur Abdomen: normal bowel sounds, non tender, soft, no organomegaly, Extremities: Left elbow is dress, fingers no cyanosis, radial pulse positive, Neurologic/Psychiatric: digital media planner II-XII nml as tested, no motor/sensory deficits, alert, normal mood/affect, oriented x 3 Skin: normal color, warm/dry, no rash Lymphatic: no adenopathy Results & Data Laboratory Results Laboratory Results - last 24 hr 09/10/18 09/10/18 09/10/18 11:48 17:32 17:50 WBC RBC Hgb Hct MCV MCH MCHC RDW Std Deviation RDW Coeff of Chris Plt Count MPV Immature Gran % (Auto) Neut % (Auto) Lymph % (Auto) [place] % (Auto) Eos % (Auto) Baso % (Auto) Immature Gran # (Auto) Neut # (Auto) Lymph # (Auto) [place] # (Auto) Eos # (Auto) Baso # (Auto) Hypochromasia Anisocytosis Creatinine Est Cr Clr Drug Dosing Est GFR ( Amer) Est GFR (Non-Af Amer) POC Glucose 347 H 57 L* 105 H 09/10/18 09/11/18 09/11/18 20:39 05:18 05:18 WBC 9.27 RBC 4.19 L Hgb 9.2 L Hct 31.7 L MCV 75.7 L MCH 22.0 L MCHC 29.0 L RDW Std Deviation 52.1 H RDW Coeff of Chris 21.7 H Plt Count 262 MPV 10.3 Immature Gran % (Auto) 0.8 Neut % (Auto) 73.4 Lymph % (Auto) 12.9 [place] % (Auto) 11.3 Eos % (Auto) 1.3 Baso % (Auto) 0.3 Immature Gran # (Auto) 0.07 H Neut # (Auto) 6.80 H Lymph # (Auto) 1.20 [place] # (Auto) 1.05 H Eos # (Auto) 0.12 Baso # (Auto) 0.03 Hypochromasia Present Anisocytosis Present Creatinine 0.97 Est Cr Clr Drug Dosing 33.2 Est GFR ( Amer) 60.4 Est GFR (Non-Af Amer) 52.1 POC Glucose 249 H 09/11/18 09/11/18 08:07 08:09 WBC RBC Hgb Hct MCV MCH MCHC RDW Std Deviation RDW Coeff of Chris Plt Count MPV Immature Gran % (Auto) Neut % (Auto) Lymph % (Auto) [place] % (Auto) Eos % (Auto) Baso % (Auto) Immature Gran # (Auto) Neut # (Auto) Lymph # (Auto) [place] # (Auto) Eos # (Auto) Baso # (Auto) Hypochromasia Anisocytosis Creatinine Est Cr Clr Drug Dosing Est GFR ( Amer) Est GFR (Non-Af Amer) POC Glucose 385 H* 355 H* Microbiology 09/09/18 11:44 Elbow,Left Gram Stain - Final 09/09/18 11:44 Elbow,Left Aerobic and Anaerobic Culture - Preliminary Staph aureus MRSA _ (1) Cellulitis Laterality: left Site of cellulitis: extremity Site of cellulitis of extremity: upper extremity Site of cellulitis of trunk: Qualified Code(s): L03.114 - Cellulitis of left upper limb (2) Iron deficiency anemia Iron deficiency anemia type: unspecified iron deficiency Qualified Code(s): D50.9 - Iron deficiency anemia, unspecified (3) Atrial fibrillation Atrial fibrillation type: chronic Qualified Code(s): I48.2 - Chronic atrial fibrillation (4) Diabetes mellitus type 2 with complications Diabetes mellitus fpc insulin use: with pension agent use Qualified Code(s) : E11.8 - Type 2 diabetes mellitus with unspecified complications; 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
[2018-09-11] MEDS: DOXYCYCLINE HYCLATE 100 MG CAP PO SCH ×2 (11:42→20:52)
--- NOTE | 2018-09-11 15:34 | Pharmacy Report ---
Pharmacy Glycemic Short Note 2 - Date of Service September 11, 2018 - Glycemic Short BSG Results (Last 24 hours): 09/10/18 09/10/18 09/10/18 17:32 17:50 20:39 POC Glucose 57 L* 105 H 249 H 09/11/18 09/11/18 09/11/18 08:07 08:09 10:50 POC Glucose 385 H* 355 H* 449 H* 09/11/18 09/11/18 10:54 14:07 POC Glucose 437 H* 229 H ASSESSMENT: * See progress note from 09/08/18 for more background info, in short: * Pt receiving SQ basal bolus insulin regimen for hyperglycemia secondary to baseline DM (outpatient regimen on hold). POD 2 s/p I&D of elbow abscess * Fasting BSG this am elevated at 355 mg/dL - unclear as to why/related to infection? * Had tightened CF/CR yesterday at lunchtime, BSGs fell to 57 mg/dL - not sure it patient had symptoms of hypoglycemia/or treated - nurse today did not know * Correctional insulin given this am and slightly higher dose of Lantus at 16 units - lunchtime BSG at 437 mg/dL; had nurse cover with correctional at that time and later covered for carbs * Recheck at around 2 pm is 229 mg/dL so trending down (had not given IV insulin earlier due to such decrease in BSGs yesterday) * Will add Lantus with scale for this evening as patient tends to become extremely hyperglycemic in AMs PLAN: * Lantus SC qPM added for this evening if BSG >160 mg/dL give 8 units * Lantus SC qAM based on BSG * 10 units for BSG less than 100 mg/dL * 12 units for BSG 100-140 mg/dL * 14 units for BSG 141-180 mg/dL * 16 units for BSG greater than 180 mg/dL * Novolog ACHS * Goal range: 120-160 mg/dL * Correction factor: 20 mg/dL/unit * Carb ratio: 6 g CHO/unit
[2018-09-11] MEDS: RIVAROXABAN 15 MG TAB PO SCH (17:02)
[2018-09-11] MEDS: DIGOXIN 0.125 MG TAB PO SCH (17:03)
[2018-09-12] MEDS: LEVOTHYROXINE SODIUM 125 MCG TABLET PO SCH (05:40)
[2018-09-12] MEDS: ACETAMINOPHEN 500 MG TAB PO SCH ×3 (06:29→22:45)
[2018-09-12 06:43] LABS: Hematocrit (blood only) 33.8 % (37-47); Hemoglobin 9.8 g/dL (12.0-16.0); Mean Corpuscular Volume 76.5 fL (80-100); Platelet Count 261 K/uL (130-400); RDW Coefficient of Variation 22.1 % (11.5-14.5); RDW Standard Deviation 53.2 fL (36.4-46.3); Red Blood Count 4.42 M/uL (4.2-5.4); White Blood Count 8.96 K/uL (4.8-10.8)
[2018-09-12 06:47] LABS: Estimated Average Glucose 206 mg/dl
[2018-09-12 07:12] LABS: Albumin Level 3.1 gm/dl (3.4-5.0); Bilirubin Direct 0.2 mg/dl (0-0.2); Bilirubin,Total 0.5 mg/dl (0.2-1)
[2018-09-12 07:19] LABS: Anisocytosis Present; Basophils % (auto) 1.1 %; Eosinophils # (auto) 0.21 K/uL (0-0.5); Eosinophils % (auto) 2.3 %; Hypochromasia Present; Immature Granulocytes # (auto) 0.11 K/uL (0.00-0.02); Immature Granulocytes % (auto) 1.2 %; Lymphocytes # (auto) 1.67 K/uL (1.2-3.4); Lymphocytes % (auto) 18.6 %; Microcytosis Present; Monocytes # (auto) 1.11 K/uL (0.11-0.59); Monocytes % (auto) 12.4 %; Neutrophils # (auto) 5.76 K/uL (1.4-6.5); Neutrophils % (auto) 64.4 %
[2018-09-12] MEDS: CYANOCOBALAMIN 500 MCG TABLET (VITAMIN B-12) PO SCH (09:28)
[2018-09-12] MEDS: LISINOPRIL 2.5 MG TAB PO SCH (09:28)
[2018-09-12] MEDS: DOXYCYCLINE HYCLATE 100 MG CAP PO SCH ×2 (09:28→20:24)
[2018-09-12] MEDS: POTASSIUM CHLORIDE 10 MEQ TABCR PO SCH ×2 (09:29→20:23)
[2018-09-12] MEDS: FERROUS SULFATE 325 MG TAB PO SCH ×2 (09:29→17:07)
[2018-09-12] MEDS: METOPROLOL SUCC 50MG EXT REL TAB PO SCH (09:30)
[2018-09-12] MEDS: FUROSEMIDE 40 MG TAB PO SCH ×2 (09:30→17:07)
[2018-09-12] MEDS: INSULIN GLARGINE SOLOSTAR 100 UNITS/ML 3 ML PEN SC SCH ×2 (09:32→20:32)
[2018-09-12] MEDS: INSULIN ASPART 100 UNITS/ML 3 ML PEN SC SCH ×4 (09:33→20:31)
--- NOTE | 2018-09-12 09:35 | Orthopedic Progress Note ---
Date of Service September 12, 2018 Assessment & Plan (1) Abscess, elbow: POD#3 Irrigation and debridement of superficial left elbow abscess. -Cx growing MRSA -Dressing change as needed, 4 x 4's, Kerlix and Gian wrap. -Continue with standing IV antibiotic order, IV vancomycin -PT/OT, elbow range of motion -Ice and elevation of left upper extremit -dressing changed and packing removed, change dressing PRN -Patient will need to follow up in office in 10-14 days for wound check, suture care. continue with ROM exercises with elbow, sling for comfort. . Subjective Pt awake, alert, laying in bed. State she has some pain in the elbow off and on but is tolerable. No other complaints at this time. Constitutional: as per Subjective / HPI Physical Exam 2 Vital Signs (Past 24 Hours): Last Vital Signs Temp 36.3 C L 09/12/18 07:00 Pulse 88 09/12/18 07:00 Resp 18 09/12/18 07:00 BP 155/73 H 09/12/18 07:00 Pulse Ox 96 09/12/18 07:00 Physical Exam: LUE NVSI +M/R/U/AIN/PIN, SILT grossly, CR< 2 seconds, incision cdi with scant serous drainage and packing in place
[2018-09-12] MEDS: DOCUSATE SODIUM 100 MG CAP PO SCH ×2 (10:08→20:18)
--- NOTE | 2018-09-12 15:00 | Pharmacy Report ---
Pharmacy Glycemic Short Note 2 - Date of Service September 12, 2018 - Glycemic Short BSG Results (Last 24 hours): 09/11/18 09/11/18 09/12/18 17:12 20:28 08:05 POC Glucose 181 H 199 H 203 H 09/12/18 09/12/18 12:03 12:05 POC Glucose 353 H* 403 H* ASSESSMENT: * See progress note from 09/08/18 for more background info, in short: * Pt receiving SQ basal bolus insulin regimen for hyperglycemia secondary to baseline DM (outpatient regimen on hold). POD 3 s/p I&D of elbow abscess. * Barbara received 85 units of SQ insulin yesterday. BSGs continue to fluctuate despite only making conservative changes. * Significant improvement in fasting BSG noted today (355 -> 203 mg/dL). Perhaps elevated fasting from 09/11 was due to 48 hours of reduced Lantus dosing * Patient continues to experience post prandial elevation. No episodes of hypoglycemia in the past 24 hours. Lunch is typically the highest BSG of the day , therefore I will tighten correction factor and carb coverage with breakfast to avoid spike at lunchtime. PLAN: Basal Insulin * Lantus 16 units SC qAM * Lantus per scale SC qPM * BSG 160 mg/dL or less: give 5 units * BSG > 160 mg/dL: give 8 units Bolus Insulin * Novolog ACHS * Goal range: 120-160 mg/dL Breakfast: * Correction factor: 18 mg/dL/unit * Carb ratio: 5 g CHO/unit Lunch/Dinner/HS: * Correction factor: 20 mg/dL/unit * Carb ratio: 6 g CHO/unit Thank you.
--- NOTE | 2018-09-12 15:54 | Hospitalist Progress Note ---
Date of Service September 12, 2018 Assessment & Plan (1) Acute on chronic systolic heart failure: (2) Abscess, elbow: (3) Cellulitis: (4) Iron deficiency anemia: (5) Atrial fibrillation: (6) Chronic kidney disease with symptom management only, stage 3 (moderate): (7) Diabetes mellitus type 2 with complications: (8) Hypothyroidism: (9) Hypertension: controlled at this time. (10) Pulmonary HTN: (11) Mitral regurgitation: (12) Tricuspid regurgitation: (13) DVT prophylaxis: 88-year-old white female with past medical history of hypertension, DKA, CKD, CHF admitted on Aug CHF exacerbation, Acute on chronic systolic heart failure: Compensated, stable, Cont BB, low-dose CHERYL, and lasix BID by mouth. Left elbow MRSA abscess, left elbow cellulitis: procedure for abscess was done by orthopedic surgeon, continue dressing changes, has been on iv vanco, Will change to doxycycline for additional 14 days per infectious disease recommendation, Continue wound care in dress changes, Chronic iron deficiency anemia: Stable, Continue on on ferrous sulfate supplementation. Stool fecal occult was negative. Will need a minimum of 4-6 months of oral Fe replacement if she can tolerate. Need to follow-up with PCP, Atrial fibrillation: Rate control, continue beta-alisia, has restarted Xarelto after procedure, Chronic kidney disease with symptom management only, stage 3 (moderate): Stable, 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: Blood glucose fluctuation a lot, continue pharmacy glycemic control, Hypothyroidism, hypertension, Pulmonary HTN, Mitral regurgitation, Tricuspid regurgitation: Stable continue current DVT prophylaxis: Continue on Xalreto Patient from [facility], request PT OT to reevaluation, on to make sure the safety to be discharged, otherwise will need to assisted facility, talk to watch caser Subjective doing well, pain well controlled, no complaint Left elbow dressing change was done by orthopedic team, Registered nurse report dark stool, Hemoccult testing was negative x3 in recent 2 months Review of Systems Constitutional: Positive weakness, or fatigue Respiratory: no cough, sputum, wheezing, Cardiac: No chest pain, No orthopnea, Abdomen: No pain, No nausea, No vomiting, No diarrhea, Musculoskeletal: Left elbow pain however is well controlled, no other joint pain, No muscle pain, : No dysuria, No urinary frequency, Neurologic: No paralysis, No weakness, Psychiatric: No depression symptoms, No anhedonism, Heme: No abnormal bleeding/bruising, No clotting problems, Skin: No rash, No itch, No new/changing skin lesions, Physical Exam 2 Vital Signs (Past 24 Hours): Last Vital Signs Temp 36.7 C 09/12/18 15:47 Pulse 76 09/12/18 15:47 Resp 16 09/12/18 15:47 BP 96/61 L 09/12/18 15:47 Pulse Ox 96 09/12/18 15:47 Physical Exam: General Appearance: frail, chronically ill looking, Looks better than yesterday, patient also looks younger than her age, WD/WN, no apparent distress, Eyes: normal inspection, PERRL, EOMI, sclerae normal ENT: normal ENT inspection, hearing grossly normal, pharynx normal Neck: supple, no adenopathy, thyroid normal, no JVD, no carotid bruits, trachea midline Respiratory/Chest: chest non-tender, significant decreased breath sounds, occasional wheezing, Cardiovascular: irregular rate, rhythm, no JVD, no murmur Abdomen: normal bowel sounds, non tender, soft, no organomegaly, Extremities: Left elbow is dress, associated with limited range of motion, fingers no cyanosis, radial pulse positive, Neurologic/Psychiatric: manager oracle II-XII nml as tested, no motor/sensory deficits, alert, normal mood/affect, oriented x 3 Skin: normal color, warm/dry, no rash Lymphatic: no adenopathy Results & Data Laboratory Results Laboratory Results - last 24 hr 09/11/18 09/11/18 09/12/18 17:12 20:28 06:13 WBC 8.96 RBC 4.42 Hgb 9.8 L Hct 33.8 L MCV 76.5 L MCH 22.2 L MCHC 29.0 L RDW Std Deviation 53.2 H RDW Coeff of Chris 22.1 H Plt Count 261 MPV 10.0 Immature Gran % (Auto) 1.2 Neut % (Auto) 64.4 Lymph % (Auto) 18.6 [place] % (Auto) 12.4 Eos % (Auto) 2.3 Baso % (Auto) 1.1 Immature Gran # (Auto) 0.11 H Neut # (Auto) 5.76 Lymph # (Auto) 1.67 [place] # (Auto) 1.11 H Eos # (Auto) 0.21 Baso # (Auto) 0.10 Hypochromasia Present Anisocytosis Present Microcytosis Present POC Glucose 181 H 199 H Estimat Average Glucose Hemoglobin A1c Total Bilirubin Direct Bilirubin AST ALT Alkaline Phosphatase Total Protein Albumin 09/12/18 09/12/18 09/12/18 06:13 06:13 08:05 WBC RBC Hgb Hct MCV MCH MCHC RDW Std Deviation RDW Coeff of Chris Plt Count MPV Immature Gran % (Auto) Neut % (Auto) Lymph % (Auto) [place] % (Auto) Eos % (Auto) Baso % (Auto) Immature Gran # (Auto) Neut # (Auto) Lymph # (Auto) [place] # (Auto) Eos # (Auto) Baso # (Auto) Hypochromasia Anisocytosis Microcytosis POC Glucose 203 H Estimat Average Glucose 206 Hemoglobin A1c 8.8 H Total Bilirubin 0.5 Direct Bilirubin 0.2 AST 29 ALT 21 Alkaline Phosphatase 151 H Total Protein 7.0 Albumin 3.1 L 09/12/18 09/12/18 09/12/18 12:03 12:05 14:36 WBC RBC Hgb Hct MCV MCH MCHC RDW Std Deviation RDW Coeff of Chris Plt Count MPV Immature Gran % (Auto) Neut % (Auto) Lymph % (Auto) [place] % (Auto) Eos % (Auto) Baso % (Auto) Immature Gran # (Auto) Neut # (Auto) Lymph # (Auto) [place] # (Auto) Eos # (Auto) Baso # (Auto) Hypochromasia Anisocytosis Microcytosis POC Glucose 353 H* 403 H* 148 H Estimat Average Glucose Hemoglobin A1c Total Bilirubin Direct Bilirubin AST ALT Alkaline Phosphatase Total Protein Albumin Microbiology 09/09/18 11:44 Elbow,Left Gram Stain - Final 09/09/18 11:44 Elbow,Left Aerobic and Anaerobic Culture - Preliminary Staph aureus MRSA Laboratory Results - last 24 hr 09/11/18 09/11/18 09/12/18 17:12 20:28 06:13 WBC 8.96 RBC 4.42 Hgb 9.8 L Hct 33.8 L MCV 76.5 L MCH 22.2 L MCHC 29.0 L RDW Std Deviation 53.2 H RDW Coeff of Chris 22.1 H Plt Count 261 MPV 10.0 Immature Gran % (Auto) 1.2 Neut % (Auto) 64.4 Lymph % (Auto) 18.6 [place] % (Auto) 12.4 Eos % (Auto) 2.3 Baso % (Auto) 1.1 Immature Gran # (Auto) 0.11 H Neut # (Auto) 5.76 Lymph # (Auto) 1.67 [place] # (Auto) 1.11 H Eos # (Auto) 0.21 Baso # (Auto) 0.10 Hypochromasia Present Anisocytosis Present Microcytosis Present POC Glucose 181 H 199 H Estimat Average Glucose Hemoglobin A1c Total Bilirubin Direct Bilirubin AST ALT Alkaline Phosphatase Total Protein Albumin 09/12/18 09/12/18 09/12/18 06:13 06:13 08:05 WBC RBC Hgb Hct MCV MCH MCHC RDW Std Deviation RDW Coeff of Chris Plt Count MPV Immature Gran % (Auto) Neut % (Auto) Lymph % (Auto) [place] % (Auto) Eos % (Auto) Baso % (Auto) Immature Gran # (Auto) Neut # (Auto) Lymph # (Auto) [place] # (Auto) Eos # (Auto) Baso # (Auto) Hypochromasia Anisocytosis Microcytosis POC Glucose 203 H Estimat Average Glucose 206 Hemoglobin A1c 8.8 H Total Bilirubin 0.5 Direct Bilirubin 0.2 AST 29 ALT 21 Alkaline Phosphatase 151 H Total Protein 7.0 Albumin 3.1 L 09/12/18 09/12/18 09/12/18 12:03 12:05 14:36 WBC RBC Hgb Hct MCV MCH MCHC RDW Std Deviation RDW Coeff of Chris Plt Count MPV Immature Gran % (Auto) Neut % (Auto) Lymph % (Auto) [place] % (Auto) Eos % (Auto) Baso % (Auto) Immature Gran # (Auto) Neut # (Auto) Lymph # (Auto) [place] # (Auto) Eos # (Auto) Baso # (Auto) Hypochromasia Anisocytosis Microcytosis POC Glucose 353 H* 403 H* 148 H Estimat Average Glucose Hemoglobin A1c Total Bilirubin Direct Bilirubin AST ALT Alkaline Phosphatase Total Protein Albumin Microbiology 09/09/18 11:44 Elbow,Left Gram Stain - Final 09/09/18 11:44 Elbow,Left Aerobic and Anaerobic Culture - Preliminary Staph aureus MRSA _ (1) Cellulitis Laterality: left Site of cellulitis: extremity Site of cellulitis of extremity: upper extremity Site of cellulitis of trunk: Qualified Code(s): L03.114 - Cellulitis of left upper limb (2) Iron deficiency anemia Iron deficiency anemia type: unspecified iron deficiency Qualified Code(s): D50.9 - Iron deficiency anemia, unspecified (3) Atrial fibrillation Atrial fibrillation type: chronic Qualified Code(s): I48.2 - Chronic atrial fibrillation (4) Diabetes mellitus type 2 with complications Diabetes mellitus fdc insulin use: with fdc use Qualified Code(s) : E11.8 - Type 2 diabetes mellitus with unspecified complications; 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
[2018-09-12] MEDS: RIVAROXABAN 15 MG TAB PO SCH (17:07)
[2018-09-12] MEDS: DIGOXIN 0.125 MG TAB PO SCH (17:08)
[2018-09-13] MEDS: ACETAMINOPHEN 500 MG TAB PO SCH ×3 (05:56→21:49)
[2018-09-13] MEDS: LEVOTHYROXINE SODIUM 125 MCG TABLET PO SCH (05:57)
[2018-09-13] MEDS: METOPROLOL SUCC 50MG EXT REL TAB PO SCH (07:31)
[2018-09-13] MEDS: DOXYCYCLINE HYCLATE 100 MG CAP PO SCH ×2 (07:31→21:48)
[2018-09-13] MEDS: FERROUS SULFATE 325 MG TAB PO SCH ×2 (07:32→18:05)
[2018-09-13] MEDS: LISINOPRIL 2.5 MG TAB PO SCH (07:32)
[2018-09-13] MEDS: CYANOCOBALAMIN 500 MCG TABLET (VITAMIN B-12) PO SCH (07:32)
[2018-09-13] MEDS: POTASSIUM CHLORIDE 10 MEQ TABCR PO SCH ×2 (07:32→21:48)
[2018-09-13] MEDS: DOCUSATE SODIUM 100 MG CAP PO SCH ×2 (07:33→21:47)
[2018-09-13] MEDS: FUROSEMIDE 40 MG TAB PO SCH ×2 (07:33→18:04)
[2018-09-13] MEDS: INSULIN GLARGINE SOLOSTAR 100 UNITS/ML 3 ML PEN SC SCH (08:52)
[2018-09-13] MEDS: INSULIN ASPART 100 UNITS/ML 3 ML PEN SC SCH ×6 (08:53→21:48)
--- NOTE | 2018-09-13 11:18 | Hospitalist Progress Note ---
Date of Service September 13, 2018 Assessment & Plan (1) Acute on chronic systolic heart failure: (2) Abscess, elbow: (3) Cellulitis: (4) Iron deficiency anemia: (5) Atrial fibrillation: (6) Chronic kidney disease with symptom management only, stage 3 (moderate): (7) Diabetes mellitus type 2 with complications: (8) Hypothyroidism: (9) Hypertension: (10) Pulmonary HTN: (11) Mitral regurgitation: (12) Tricuspid regurgitation: (13) DVT prophylaxis: 88-year-old white female with past medical history of hypertension, DKA, CKD, CHF admitted on Aug CHF exacerbation, Severe hyperglycemia, history of DKA, check BMP, magnesium phosphate and VBG now , will continue follow-up, transfer to higher level care if needed Left elbow MRSA abscess, left elbow cellulitis: procedure for abscess was done by orthopedic surgeon, continue dressing changes, has been on iv vanco, Will change to doxycycline for additional 14 days per infectious disease recommendation, Continue wound care in dress changes, Per therapist she need to go to shelter, Left elbow dressing change was done by orthopedic team, Acute on chronic systolic heart failure: Compensated, stable, Cont BB, low-dose CHERYL, and lasix BID by mouth. Chronic iron deficiency anemia: Stable, Continue on on ferrous sulfate supplementation. Stool fecal occult was negative. Will need a minimum of 4-6 months of oral Fe replacement if she can tolerate. Need to follow-up with PCP, Atrial fibrillation: Rate control, continue beta-alisia, has restarted Xarelto after procedure, Chronic kidney disease with symptom management only, stage 3 (moderate): Stable, 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: Blood glucose fluctuation a lot, continue pharmacy glycemic control, Hypothyroidism, hypertension, Pulmonary HTN, Mitral regurgitation, Tricuspid regurgitation: Stable continue current DVT prophylaxis: Continue on Xalreto Patient from [facility], per PT OT she need to go to shelter rehab, has notified case investigator Subjective Has been up with therapist however left arm is nonweightbearing instruction of orthopedic, She feels easily tired, has significant elevated blood glucose, more than 500, pharmacy glycemic control requested Otherwise she doing well, pain well controlled, no complaint Review of Systems Constitutional: Positive weakness, or fatigue Respiratory: no cough, sputum, wheezing, Cardiac: No chest pain, No orthopnea, Abdomen: No pain, No nausea, No vomiting, No diarrhea, Musculoskeletal: Left elbow pain however is well controlled, no other joint pain, No muscle pain, : No dysuria, No urinary frequency, Neurologic: No paralysis, No weakness, Psychiatric: No depression symptoms, No anhedonism, Heme: No abnormal bleeding/bruising, No clotting problems, Skin: No rash, No itch, No new/changing skin lesions Physical Exam 2 Vital Signs (Past 24 Hours): Last Vital Signs Temp 36.8 C 09/13/18 07:03 Pulse 78 09/13/18 07:03 Resp 16 09/13/18 07:03 BP 130/66 09/13/18 07:03 Pulse Ox 90 09/13/18 07:03 Physical Exam: General Appearance: frail, chronically ill looking, WD/WN, no apparent distress, Eyes: normal inspection, PERRL, EOMI, sclerae normal ENT: normal ENT inspection, hearing grossly normal, pharynx normal Neck: supple, no adenopathy, thyroid normal, no JVD, no carotid bruits, trachea midline Respiratory/Chest: chest non-tender, significant decreased breath sounds, occasional wheezing, Cardiovascular: irregular rate, rhythm, no JVD, no murmur Abdomen: normal bowel sounds, non tender, soft, no organomegaly, Extremities: Left elbow is dress, associated with limited range of motion, fingers no cyanosis, radial pulse positive, Neurologic/Psychiatric: director of infection prevention II-XII nml as tested, no motor/sensory deficits, alert, normal mood/affect, oriented x 3 Skin: normal color, warm/dry, no rash Lymphatic: no adenopathy Results & Data Laboratory Results Laboratory Results - last 24 hr 09/12/18 09/12/18 09/12/18 17:13 17:15 17:39 Glucose POC Glucose 38 L* 35 L* 43 L* Beta-Hydroxybutyric Acd Stool Occult Bld Scrn 09/12/18 09/12/18 09/12/18 17:55 18:14 20:29 Glucose POC Glucose 50 L* 91 269 H Beta-Hydroxybutyric Acd Stool Occult Bld Scrn 09/12/18 09/13/18 09/13/18 Unknown 08:21 08:40 Glucose POC Glucose 252 H Beta-Hydroxybutyric Acd Stool Occult Bld Scrn Negative Negative 01/03/19 01/03/19 01/03/19 12:16 12:20 14:05 Glucose POC Glucose 575 H* 532 H* 522 H* Beta-Hydroxybutyric Acd Stool Occult Bld Scrn 09/13/18 09/13/18 14:07 14:27 Glucose 540 H* POC Glucose > 600 H* Beta-Hydroxybutyric Acd 1.33 Stool Occult Bld Scrn Microbiology 09/09/18 11:44 Elbow,Left Gram Stain - Final 09/09/18 11:44 Elbow,Left Aerobic and Anaerobic Culture - Preliminary Staph aureus MRSA _ (1) Tricuspid regurgitation Cardiac valve disease etiology: nonrheumatic Qualified Code(s): I36.1 - Nonrheumatic tricuspid (valve) insufficiency (2) Atrial fibrillation Atrial fibrillation type: chronic Qualified Code(s): I48.2 - Chronic atrial fibrillation (3) Cellulitis Laterality: left Site of cellulitis: extremity Site of cellulitis of extremity: upper extremity Site of cellulitis of trunk: Qualified Code(s): L03.114 - Cellulitis of left upper limb (4) Hypothyroidism Hypothyroidism type: acquired Qualified Code(s): E03.9 - Hypothyroidism, unspecified (5) Mitral regurgitation Cardiac valve disease etiology: etiology unspecified Qualified Code(s): I34.0 - Nonrheumatic mitral (valve) insufficiency (6) Diabetes mellitus type 2 with complications Diabetes mellitus fci insulin use: with supervisor long goods use Qualified Code(s) : E11.8 - Type 2 diabetes mellitus with unspecified complications; Z79.4 - exterminator termite (current) use of insulin (7) Iron deficiency anemia Iron deficiency anemia type: unspecified iron deficiency Qualified Code(s): D50.9 - Iron deficiency anemia, unspecified (8) Hypertension Hypertension type: essential hypertension Qualified Code(s): I10 - Essential (primary) hypertension
[2018-09-13] MEDS ORDERED: INSULIN GLARGINE SOLOSTAR 100 UNITS/ML 3 ML PEN SC ONE (13:00)
--- NOTE | 2018-09-13 14:21 | Pharmacy Report ---
Pharmacy Glycemic Short Note 2 - Date of Service September 13, 2018 - Glycemic Short BSG Results (Last 24 hours): 09/12/18 09/12/18 09/12/18 14:36 17:13 17:15 POC Glucose 148 H 38 L* 35 L* 09/12/18 09/12/18 09/12/18 17:39 17:55 18:14 POC Glucose 43 L* 50 L* 91 09/12/18 09/13/18 09/13/18 20:29 08:21 12:16 POC Glucose 269 H 252 H 575 H* 09/13/18 12:20 POC Glucose 532 H* OUTPATIENT REGIMEN: * Lantus 20 units in the morning, Novolog and NPH 10 units with breakfast ASSESSMENT: * See progress note from 09/08/18 for more background info, in short: * Pt receiving SQ basal bolus insulin regimen for hyperglycemia secondary to baseline DM (outpatient regimen on hold). POD 3 s/p I&D of elbow abscess. * Barbara received 56 units of SQ insulin yesterday. BSGs continue to fluctuate despite only making conservative changes. * Barbara had an episode of severe hypoglycemia yesterday at dinnertime; BSG 38 mg /dL with repeat of 43 mg/dL. * Patient is consistently high at lunchtime, is given a large dose of Novolog (~ 13-20 units), then becomes hypoglycemia around dinnertime. * Yesterday I tightened correction factor and carb coverage with breakfast only in an attempt to avoid BSG spike at lunchtime. This change did not produce desired effect today. * Lunch BSG today was 575 mg/dL. I confirmed with RN that the patient did not consume anything prior to BSG being drawn. I instructed RN to give patient a max of 15 units of Novolog coverage. I have elected not to give an IV bolus because these have contributed to hypoglycemia on previous days even at small doses. An additional 5 units of Lantus was given. Requested repeat BSG around 1400. * Patient takes Lantus once daily at home. Current inpatient regimen is 16 units qAM + 8 units HS. Although Lantus should not have a peak effect, perhaps PM dose of Lantus in combination with large lunchtime Novolog dose is causing hypoglycemia? Will transition patient to once daily Lantus dosing. PLAN: Basal Insulin * Lantus 16 units SC qAM + Additional 5 units given at lunchtime * Start Lantus 20 units SQ qAM on 09/14 * Discontinue Lantus PM scale Bolus Insulin * Novolog ACHS * Goal range: 120-160 mg/dL Breakfast: * Correction factor: 18 mg/dL/unit * Carb ratio: 5 g CHO/unit Lunch/Dinner/HS: * Correction factor: 20 mg/dL/unit * Carb ratio: 7 g CHO/unit Thank you.
[2018-09-13] MEDS ORDERED: INSULIN HUMAN REGULAR PER UNIT 4 UNITS in SYRINGE 3.96 ML IV ONE (15:15)
[2018-09-13] MEDS: DIGOXIN 0.125 MG TAB PO SCH (15:41)
[2018-09-13 16:24] LABS: Magnesium 2.3 mg/dl (1.8-2.4); Phosphorus 3.8 mg/dl (2.5-4.9)
[2018-09-13 16:33] LABS: Base Excess VBG -2.1 mEq/L; Oxygen Saturation VBG 82.1 %; pH VBG 7.42 (7.36-7.41)
[2018-09-13 16:58] LABS: BUN Creatinine Ratio 28.4 (10-20); Calcium 8.9 mg/dl (8.5-10.1); Creatinine Clr Calc Pharmacy 22.6 ml/min; Est GFR (African American) 38.1; Est GFR (Non-African American) 32.9; Potassium 5.2 mmol/L (3.5-5.1)
[2018-09-13] MEDS ORDERED: MODERATE STRESS LEVEL ONE (17:06)
[2018-09-13] MEDS ORDERED: INSULIN PROTOCOL GOAL RANGE ONE (17:06)
[2018-09-13] MEDS ORDERED: INSULIN REGULAR 250 UNITS in SODIUM CHLORIDE 0.9% 247.5 ML IV SCH (17:15)
[2018-09-13] MEDS ORDERED: INSULIN HUMAN REGULAR IV BOLUS 1.5 UNITS in SYRINGE 0 ML IV ONE (17:30)
[2018-09-13] MEDS: SODIUM CHLORIDE 0.9% 1000ML 1,000 ML IV SCH (18:01)
[2018-09-13] MEDS: RIVAROXABAN 15 MG TAB PO SCH (18:05)
[2018-09-14] MEDS ORDERED: INSULIN ASPART 100 UNITS/ML 3 ML PEN SC SCH (04:00)
[2018-09-14] MEDS: SODIUM CHLORIDE 0.9% 1000ML 1,000 ML IV SCH ×2 (05:57→18:52)
[2018-09-14] MEDS: LEVOTHYROXINE SODIUM 125 MCG TABLET PO SCH (05:58)
[2018-09-14] MEDS: ACETAMINOPHEN 500 MG TAB PO SCH ×3 (05:59→21:50)
[2018-09-14] MEDS: FERROUS SULFATE 325 MG TAB PO SCH ×2 (07:04→16:48)
[2018-09-14] MEDS: POTASSIUM CHLORIDE 10 MEQ TABCR PO SCH ×2 (07:04→21:50)
[2018-09-14] MEDS: METOPROLOL SUCC 50MG EXT REL TAB PO SCH (07:05)
[2018-09-14] MEDS: DOXYCYCLINE HYCLATE 100 MG CAP PO SCH ×2 (07:05→21:51)
[2018-09-14] MEDS: FUROSEMIDE 40 MG TAB PO SCH ×2 (07:05→16:46)
[2018-09-14] MEDS: CYANOCOBALAMIN 500 MCG TABLET (VITAMIN B-12) PO SCH (07:05)
[2018-09-14] MEDS: LISINOPRIL 2.5 MG TAB PO SCH (07:06)
[2018-09-14] MEDS: DOCUSATE SODIUM 100 MG CAP PO SCH ×2 (07:06→21:25)
[2018-09-14] MEDS: INSULIN ASPART 100 UNITS/ML 3 ML PEN SC SCH ×4 (09:19→21:27)
[2018-09-14] MEDS: INSULIN GLARGINE SOLOSTAR 100 UNITS/ML 3 ML PEN SC SCH (09:19)
[2018-09-14 09:34] LABS: BUN Creatinine Ratio 29.3 (10-20); Calcium 8.6 mg/dl (8.5-10.1); Creatinine Clr Calc Pharmacy 32.8 ml/min; Est GFR (African American) 59.7; Est GFR (Non-African American) 51.5; Phosphorus 3.6 mg/dl (2.5-4.9); Potassium 4.2 mmol/L (3.5-5.1)
[2018-09-14 09:40] LABS: Hematocrit (blood only) 32.1 % (37-47); Hemoglobin 9.3 g/dL (12.0-16.0); Mean Corpuscular Volume 77.5 fL (80-100); Mean Platelet Volume 9.7 fL (7.4-10.4); Platelet Count 284 K/uL (130-400); RDW Coefficient of Variation 22.6 % (11.5-14.5); Red Blood Count 4.14 M/uL (4.2-5.4); White Blood Count 6.36 K/uL (4.8-10.8)
[2018-09-14 09:42] LABS: Anisocytosis Present; Basophils # (auto) 0.04 K/uL (0-0.2); Basophils % (auto) 0.6 %; Eosinophils # (auto) 0.15 K/uL (0-0.5); Eosinophils % (auto) 2.4 %; Howell-Jolly Bodies 1+; Hypochromasia Present; Immature Granulocytes # (auto) 0.08 K/uL (0.00-0.02); Immature Granulocytes % (auto) 1.3 %; Lymphocytes # (auto) 1.49 K/uL (1.2-3.4); Lymphocytes % (auto) 23.4 %; Monocytes # (auto) 0.53 K/uL (0.11-0.59); Monocytes % (auto) 8.3 %; Neutrophils # (auto) 4.07 K/uL (1.4-6.5); Ovalocytes 1+; Polychromasia 1+
--- NOTE | 2018-09-14 10:44 | Pharmacy Report ---
Pharmacy Glycemic Short Note 2 - Date of Service September 14, 2018 - Glycemic Short BSG Results (Last 24 hours): 09/13/18 09/13/18 09/13/18 12:16 12:20 14:05 Glucose POC Glucose 575 H* 532 H* 522 H* 09/13/18 09/13/18 09/13/18 14:07 14:27 16:08 Glucose 540 H* 429 H* POC Glucose > 600 H* 09/13/18 09/13/18 09/13/18 17:00 18:56 19:26 Glucose POC Glucose 342 H 174 H 175 H 09/13/18 09/13/18 09/13/18 20:29 21:20 22:23 Glucose POC Glucose 169 H 154 H 169 H 09/13/18 09/14/18 09/14/18 23:31 00:28 02:16 Glucose POC Glucose 175 H 141 H 97 09/14/18 09/14/18 09/14/18 03:39 04:00 08:05 Glucose POC Glucose 63 L* 89 250 H 09/14/18 08:40 Glucose 248 H POC Glucose OUTPATIENT REGIMEN: * Lantus 20 units in the morning, Novolog and NPH 10 units with breakfast ASSESSMENT: * See progress note from 09/08/18 for more background info, in short: * Pt receiving insulin regimen for hyperglycemia secondary to baseline DM ( outpatient regimen on hold). POD 5 s/p I&D of elbow abscess. * Barbara started on IV insulin drip yesterday for BSGs in 500s, blood sugar immediately responded to goal on drip. Drip discontinued at 0400 today when blood sugars dropped to 63mg/dl - treated with 15g CHO juice, resulting in BSG 250mg/dl. Patient extremely sensitive to carbs and insulin. * Will continue with SQ regimen for CF and CR that was started yesterday, tighter in AM to prevent stacking of insulin. * Lantus transitioned to once daily starting today. * Check BSG overnight at 0200 to see what is going on overnight, and to see why patient usually has elevated fasting BSG. Possibly too much basal or not enough basal or basal not lasting 24 hours. PLAN: Basal Insulin * Lantus 20 units SQ qAM Bolus Insulin * Novolog ACHS & at 0200 tonight * Goal range: 120-160 mg/dL Breakfast: * Correction factor: 18 mg/dL/unit * Carb ratio: 5 g CHO/unit Lunch/Dinner/HS: * Correction factor: 20 mg/dL/unit * Carb ratio: 7 g CHO/unit Thank you.
--- NOTE | 2018-09-14 16:32 | Hospitalist Progress Note ---
Date of Service September 14, 2018 Assessment & Plan (1) Acute on chronic systolic heart failure: (2) Abscess, elbow: (3) Cellulitis: (4) Iron deficiency anemia: (5) Atrial fibrillation: (6) Chronic kidney disease with symptom management only, stage 3 (moderate): (7) Diabetes mellitus type 2 with complications: (8) Hypothyroidism: (9) Hypertension: (10) Pulmonary HTN: (11) Mitral regurgitation: (12) Tricuspid regurgitation: (13) DVT prophylaxis: 88-year-old white female with past medical history of hypertension, DKA, CKD, CHF admitted on Aug CHF exacerbation, Severe hyperglycemia, history of DKA, requiring insulin drip last night, which has been off, continue current home dose of medication, 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: Blood glucose fluctuation a lot in this admission, continue pharmacy glycemic control , which include glargine and aspart Left elbow MRSA abscess, left elbow cellulitis: procedure for abscess was done by orthopedic surgeon, continue dressing changes, had been on iv vanco, changed to doxycycline for additional 14 days per infectious disease recommendation, Continue wound care in dress changes, Per therapist updated note casey saw operator, patient okay to go back to [facility], Left elbow dressing change was done by orthopedic team, will need to follow on instruction from orthopedic surgeon Acute on chronic systolic heart failure: Compensated, stable, Cont BB, low-dose CHERYL, and lasix BID by mouth. Chronic iron deficiency anemia: Stable, Continue on on ferrous sulfate supplementation. Stool fecal occult was negative. Will need a minimum of 4-6 months of oral Fe replacement if she can tolerate. Need to follow-up with PCP, Atrial fibrillation: Rate control, continue beta-alisia, has restarted Xarelto after procedure, Chronic kidney disease with symptom management only, stage 3 (moderate): Stable, Hypothyroidism, hypertension, Pulmonary HTN, Mitral regurgitation, Tricuspid regurgitation: Stable continue current DVT prophylaxis: Continue on Xalreto Patient from [facility], per PT OT npdated note today and casey saw operator, patient is okay to back to [facility], will discharge tomorrow Subjective Patient was in bed, comfortable, Conversational, has significant elevated blood glucose, more than 500, was required insulin drip, which is off now Otherwise she doing well, pain well controlled, no complaint Review of Systems Constitutional: Positive weakness, or fatigue Respiratory: no cough, sputum, wheezing, Cardiac: No chest pain, No orthopnea, Abdomen: No pain, No nausea, No vomiting, No diarrhea, Musculoskeletal: Left elbow pain however is well controlled, no other joint pain, No muscle pain, : No dysuria, No urinary frequency, Neurologic: No paralysis, No weakness, Psychiatric: No depression symptoms, No anhedonism, Heme: No abnormal bleeding/bruising, No clotting problems, Skin: No rash, No itch, No new/changing skin lesions Physical Exam 2 Vital Signs (Past 24 Hours): Last Vital Signs Temp 36.2 C L 09/14/18 15: Pulse 84 09/14/18 15: Resp 18 09/14/18 15: BP 135/74 09/14/18 15: Pulse Ox 97 09/14/18 15:01 Physical Exam: General Appearance: frail, chronically ill looking, Looks better than yesterday, patient also looks younger than her age, WD/WN, no apparent distress, Eyes: normal inspection, PERRL, EOMI, sclerae normal ENT: normal ENT inspection, hearing grossly normal, pharynx normal Neck: supple, no adenopathy, thyroid normal, no JVD, no carotid bruits, trachea midline Respiratory/Chest: chest non-tender, significant decreased breath sounds, occasional wheezing, Cardiovascular: irregular rate, rhythm, no JVD, no murmur Abdomen: normal bowel sounds, non tender, soft, no organomegaly, Extremities: Left elbow is dress, associated with limited range of motion, fingers no cyanosis, radial pulse positive, Neurologic/Psychiatric: bss solution architect II-XII nml as tested, no motor/sensory deficits, alert, normal mood/affect, oriented x 3 Skin: normal color, warm/dry, no rash Lymphatic: no adenopathy Results & Data Laboratory Results Laboratory Results - last 24 hr 09/13/18 09/13/18 09/13/18 16:07 16:08 17:00 WBC RBC Hgb Hct MCV MCH MCHC RDW Std Deviation RDW Coeff of Chris Plt Count MPV Immature Gran % (Auto) Neut % (Auto) Lymph % (Auto) [place] % (Auto) Eos % (Auto) Baso % (Auto) Immature Gran # (Auto) Neut # (Auto) Lymph # (Auto) [place] # (Auto) Eos # (Auto) Baso # (Auto) Polychromasia Hypochromasia Anisocytosis Ovalocytes [place] Bodies VBG pH 7.42 H VBG pCO2 35 L VBG pO2 48 VBG HCO3 22 VBG O2 Saturation 82.1 VBG Base Excess -2.1 Barometric Pressure 731.4 Sodium 132 L Potassium 5.2 H Chloride 101 Carbon Dioxide 21 Anion Gap 10.0 BUN 40 H Creatinine 1.42 H Est Cr Clr Drug Dosing 22.6 Est GFR ( Amer) 38.1 Est GFR (Non-Af Amer) 32.9 BUN/Creatinine Ratio 28.4 H Glucose 429 H* POC Glucose 342 H Calcium 8.9 Phosphorus Magnesium Beta-Hydroxybutyric Acd 1.11 09/13/18 09/13/18 09/13/18 18:56 19:26 20:29 WBC RBC Hgb Hct MCV MCH MCHC RDW Std Deviation RDW Coeff of Chris Plt Count MPV Immature Gran % (Auto) Neut % (Auto) Lymph % (Auto) [place] % (Auto) Eos % (Auto) Baso % (Auto) Immature Gran # (Auto) Neut # (Auto) Lymph # (Auto) [place] # (Auto) Eos # (Auto) Baso # (Auto) Polychromasia Hypochromasia Anisocytosis Ovalocytes [place] Bodies VBG pH VBG pCO2 VBG pO2 VBG HCO3 VBG O2 Saturation VBG Base Excess Barometric Pressure Sodium Potassium Chloride Carbon Dioxide Anion Gap BUN Creatinine Est Cr Clr Drug Dosing Est GFR ( Amer) Est GFR (Non-Af Amer) BUN/Creatinine Ratio Glucose POC Glucose 174 H 175 H 169 H Calcium Phosphorus Magnesium Beta-Hydroxybutyric Acd 09/13/18 09/13/18 09/13/18 21:20 22:23 23:31 WBC RBC Hgb Hct MCV MCH MCHC RDW Std Deviation RDW Coeff of Chris Plt Count MPV Immature Gran % (Auto) Neut % (Auto) Lymph % (Auto) [place] % (Auto) Eos % (Auto) Baso % (Auto) Immature Gran # (Auto) Neut # (Auto) Lymph # (Auto) [place] # (Auto) Eos # (Auto) Baso # (Auto) Polychromasia Hypochromasia Anisocytosis Ovalocytes [place] Bodies VBG pH VBG pCO2 VBG pO2 VBG HCO3 VBG O2 Saturation VBG Base Excess Barometric Pressure Sodium Potassium Chloride Carbon Dioxide Anion Gap BUN Creatinine Est Cr Clr Drug Dosing Est GFR ( Amer) Est GFR (Non-Af Amer) BUN/Creatinine Ratio Glucose POC Glucose 154 H 169 H 175 H Calcium Phosphorus Magnesium Beta-Hydroxybutyric Acd 09/14/18 09/14/18 09/14/18 00:28 02:16 03:39 WBC RBC Hgb Hct MCV MCH MCHC RDW Std Deviation RDW Coeff of Chris Plt Count MPV Immature Gran % (Auto) Neut % (Auto) Lymph % (Auto) [place] % (Auto) Eos % (Auto) Baso % (Auto) Immature Gran # (Auto) Neut # (Auto) Lymph # (Auto) [place] # (Auto) Eos # (Auto) Baso # (Auto) Polychromasia Hypochromasia Anisocytosis Ovalocytes [place] Bodies VBG pH VBG pCO2 VBG pO2 VBG HCO3 VBG O2 Saturation VBG Base Excess Barometric Pressure Sodium Potassium Chloride Carbon Dioxide Anion Gap BUN Creatinine Est Cr Clr Drug Dosing Est GFR ( Amer) Est GFR (Non-Af Amer) BUN/Creatinine Ratio Glucose POC Glucose 141 H 97 63 L* Calcium Phosphorus Magnesium Beta-Hydroxybutyric Acd 09/14/18 09/14/18 09/14/18 04:00 08:05 08:40 WBC RBC Hgb Hct MCV MCH MCHC RDW Std Deviation RDW Coeff of Chris Plt Count MPV Immature Gran % (Auto) Neut % (Auto) Lymph % (Auto) [place] % (Auto) Eos % (Auto) Baso % (Auto) Immature Gran # (Auto) Neut # (Auto) Lymph # (Auto) [place] # (Auto) Eos # (Auto) Baso # (Auto) Polychromasia Hypochromasia Anisocytosis Ovalocytes [place] Bodies VBG pH VBG pCO2 VBG pO2 VBG HCO3 VBG O2 Saturation VBG Base Excess Barometric Pressure Sodium 132 L Potassium 4.2 D Chloride 101 Carbon Dioxide 22 Anion Gap 9.0 BUN 29 H Creatinine 0.98 D Est Cr Clr Drug Dosing 32.8 Est GFR ( Amer) 59.7 Est GFR (Non-Af Amer) 51.5 BUN/Creatinine Ratio 29.3 H Glucose 248 H POC Glucose 89 250 H Calcium 8.6 Phosphorus 3.6 Magnesium 2.0 Beta-Hydroxybutyric Acd 09/14/18 09/14/18 09/14/18 08:40 12:04 12:09 WBC 6.36 RBC 4.14 L Hgb 9.3 L Hct 32.1 L MCV 77.5 L MCH 22.5 L MCHC 29.0 L RDW Std Deviation 57.0 H RDW Coeff of Chris 22.6 H Plt Count 284 MPV 9.7 Immature Gran % (Auto) 1.3 Neut % (Auto) 64.0 Lymph % (Auto) 23.4 [place] % (Auto) 8.3 Eos % (Auto) 2.4 Baso % (Auto) 0.6 Immature Gran # (Auto) 0.08 H Neut # (Auto) 4.07 Lymph # (Auto) 1.49 [place] # (Auto) 0.53 Eos # (Auto) 0.15 Baso # (Auto) 0.04 Polychromasia 1+ Hypochromasia Present Anisocytosis Present Ovalocytes 1+ [place] Bodies 1+ VBG pH VBG pCO2 VBG pO2 VBG HCO3 VBG O2 Saturation VBG Base Excess Barometric Pressure Sodium Potassium Chloride Carbon Dioxide Anion Gap BUN Creatinine Est Cr Clr Drug Dosing Est GFR ( Amer) Est GFR (Non-Af Amer) BUN/Creatinine Ratio Glucose POC Glucose 426 H* 420 H* Calcium Phosphorus Magnesium Beta-Hydroxybutyric Acd 09/14/18 14:25 WBC RBC Hgb Hct MCV MCH MCHC RDW Std Deviation RDW Coeff of Chris Plt Count MPV Immature Gran % (Auto) Neut % (Auto) Lymph % (Auto) [place] % (Auto) Eos % (Auto) Baso % (Auto) Immature Gran # (Auto) Neut # (Auto) Lymph # (Auto) [place] # (Auto) Eos # (Auto) Baso # (Auto) Polychromasia Hypochromasia Anisocytosis Ovalocytes [place] Bodies VBG pH VBG pCO2 VBG pO2 VBG HCO3 VBG O2 Saturation VBG Base Excess Barometric Pressure Sodium Potassium Chloride Carbon Dioxide Anion Gap BUN Creatinine Est Cr Clr Drug Dosing Est GFR ( Amer) Est GFR (Non-Af Amer) BUN/Creatinine Ratio Glucose POC Glucose 241 H Calcium Phosphorus Magnesium Beta-Hydroxybutyric Acd Microbiology 09/09/18 11:44 Elbow,Left Gram Stain - Final 09/09/18 11:44 Elbow,Left Aerobic and Anaerobic Culture - Final Staph aureus MRSA _ (1) Cellulitis Laterality: left Site of cellulitis: extremity Site of cellulitis of extremity: upper extremity Site of cellulitis of trunk: Qualified Code(s): L03.114 - Cellulitis of left upper limb (2) Iron deficiency anemia Iron deficiency anemia type: unspecified iron deficiency Qualified Code(s): D50.9 - Iron deficiency anemia, unspecified (3) Atrial fibrillation Atrial fibrillation type: chronic Qualified Code(s): I48.2 - Chronic atrial fibrillation (4) Diabetes mellitus type 2 with complications Diabetes mellitus salvage determiner insulin use: with fpc use Qualified Code(s) : E11.8 - Type 2 diabetes mellitus with unspecified complications; Z79.4 - long term (current) use of insulin (5) Hypothyroidism Hypothyroidism type: acquired Qualified Code(s): E03.9 - Hypothyroidism, unspecified (6) Hypertension Hypertension type: essential hypertension Qualified Code(s): I10 - Essential (primary) hypertension (7) Mitral regurgitation Cardiac valve disease etiology: etiology unspecified Qualified Code(s): I34.0 - Nonrheumatic mitral (valve) insufficiency (8) Tricuspid regurgitation Cardiac valve disease etiology: nonrheumatic Qualified Code(s): I36.1 - Nonrheumatic tricuspid (valve) insufficiency
[2018-09-14] MEDS: DIGOXIN 0.125 MG TAB PO SCH (16:48)
[2018-09-14] MEDS: RIVAROXABAN 15 MG TAB PO SCH (16:48)
[2018-09-15] MEDS ORDERED: INSULIN ASPART 100 UNITS/ML 3 ML PEN SC SCH (02:00)
[2018-09-15] MEDS: LEVOTHYROXINE SODIUM 125 MCG TABLET PO SCH (06:10)
[2018-09-15] MEDS: ACETAMINOPHEN 500 MG TAB PO SCH (06:10)
[2018-09-15] MEDS: SODIUM CHLORIDE 0.9% 1000ML 1,000 ML IV SCH (06:57)
[2018-09-15 07:35] LABS: Hematocrit (blood only) 32.1 % (37-47); Hemoglobin 9.4 g/dL (12.0-16.0); Mean Corpuscular Hgb Conc 29.3 g/dL (32-36); Mean Corpuscular Volume 77.7 fL (80-100); Mean Platelet Volume 9.8 fL (7.4-10.4); Platelet Count 266 K/uL (130-400); RDW Coefficient of Variation 23.4 % (11.5-14.5); RDW Standard Deviation 63.2 fL (36.4-46.3); Red Blood Count 4.13 M/uL (4.2-5.4); White Blood Count 6.65 K/uL (4.8-10.8)
[2018-09-15 07:56] LABS: Anisocytosis Present; Basophils # (auto) 0.05 K/uL (0-0.2); Basophils % (auto) 0.8 %; Eosinophils # (auto) 0.12 K/uL (0-0.5); Eosinophils % (auto) 1.8 %; Hypochromasia Present; Immature Granulocytes # (auto) 0.06 K/uL (0.00-0.02); Immature Granulocytes % (auto) 0.9 %; Lymphocytes % (auto) 19.5 %; Microcytosis Present; Monocytes # (auto) 0.51 K/uL (0.11-0.59); Monocytes % (auto) 7.7 %; Neutrophils # (auto) 4.61 K/uL (1.4-6.5); Neutrophils % (auto) 69.3 %
[2018-09-15 07:58] LABS: BUN Creatinine Ratio 29.1 (10-20); Calcium 8.5 mg/dl (8.5-10.1); Creatinine Clr Calc Pharmacy 37.8 ml/min; Est GFR (African American) 70.9; Est GFR (Non-African American) 61.2; Magnesium 1.8 mg/dl (1.8-2.4); Phosphorus 3.4 mg/dl (2.5-4.9); Potassium 4.1 mmol/L (3.5-5.1)
[2018-09-15] MEDS: FERROUS SULFATE 325 MG TAB PO SCH (08:50)
[2018-09-15] MEDS: POTASSIUM CHLORIDE 10 MEQ TABCR PO SCH (08:51)
[2018-09-15] MEDS: FUROSEMIDE 40 MG TAB PO SCH (08:52)
[2018-09-15] MEDS: METOPROLOL SUCC 50MG EXT REL TAB PO SCH (08:52)
[2018-09-15] MEDS: DOXYCYCLINE HYCLATE 100 MG CAP PO SCH (08:53)
[2018-09-15] MEDS: LISINOPRIL 2.5 MG TAB PO SCH (08:54)
[2018-09-15] MEDS: CYANOCOBALAMIN 500 MCG TABLET (VITAMIN B-12) PO SCH (08:54)
[2018-09-15] MEDS: DOCUSATE SODIUM 100 MG CAP PO SCH (08:55)
[2018-09-15] MEDS: INSULIN GLARGINE SOLOSTAR 100 UNITS/ML 3 ML PEN SC SCH (09:36)
[2018-09-15] MEDS: INSULIN ASPART 100 UNITS/ML 3 ML PEN SC SCH (09:38)
--- NOTE | 2018-09-15 14:50 | Discharge Summary ---
Date of Service September 15, 2018 Admission HPI Per Admitting Provider 88 y/o F Hx PAF, HTN, DM II, hypothyroid, chronic microcytic anemia. The pt had been to her MD today due to new onset of edema in her extremities and pain and redness in her L arm. She does not have a history of CHF and was not c/o CP or SOB. Her MD felt that she was volume overloaded and suspected cellulitis of her arm. She was referred to the hospital therefore. The pt was admitted to the ICU in June for DKA and sepsis. No source of infection was determined and she recovered with broad spectrum antibiotics. Initial labs are notable for leukocytosis. A CXR suggests vascular congestion. PMH: 1) PAF - xarelto 2) HTN 3) IDDM 4) PAF 5) Hypothyroid 6) Chronic microcytic anemia - Hb 8-10 7) COPD per imaging which is not treated Social: She quit smoking 20 years ago and does not drink alcohol Family: Mother due to complications of DM Principal Diagnosis No Discharge Data Allergies Allergy/AdvReac Type Severity Reaction Status Date / Time erythromycin base Allergy Unknown Unverified 09/03/18 16:49 Consultations 09/11/18 08:12 Consult Infectious Diseases Routine 09/03/18 17:53 ED Decision to Admit Stat 09/04/18 07:55 Consult Cardiology Routine 09/08/18 10:23 Consult Orthopedic Surgery Routine Procedures Performed Operation Date: 09/09/18 09:00 Actual Procedures p Incision and Drainage Extremity(Left) - Diego Huerta DO Ordered Studies 09/03/18 15:07 US venous doppler UE LT Stat 09/09/18 18:45 CT elbow LT w con Urgent Hospital Course (1) Acute on chronic systolic heart failure: (2) Abscess, elbow: (3) Cellulitis: (4) Iron deficiency anemia: (5) Atrial fibrillation: (6) Chronic kidney disease with symptom management only, stage 3 (moderate): (7) Diabetes mellitus type 2 with complications: (8) Hypothyroidism: (9) Hypertension: (10) Pulmonary HTN: (11) Mitral regurgitation: (12) Tricuspid regurgitation: (13) DVT prophylaxis: 88-year-old white female with past medical history of hypertension, DKA, CKD, CHF admitted on Aug CHF exacerbation, Severe hyperglycemia, history of DKA, requiring insulin drip last night, which has been off, continue current home dose of medication, 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: Blood glucose fluctuation a lot in this admission, has been on pharmacy glycemic control, was transiently required insulin drip because of severe hyperglycemia blood glucose more than 500, which is resolved, currently patient is treated by insulin include glargine and aspart Left elbow MRSA abscess, left elbow cellulitis: procedure for abscess was done by orthopedic surgeon, continue dressing changes, had been on iv vanco, changed to doxycycline for additional 14 days per infectious disease recommendation, Continue wound care in dress changes, 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 Chronic iron deficiency anemia: Stable, Continue on on ferrous sulfate supplementation. Stool fecal occult was negative. Will need a minimum of 4-6 months of oral Fe replacement if she can tolerate. 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 [facility] Subjective upon discharge Patient was up in chair, comfortable, good conversational, follow-up commands, pleasant Blood glucose is better around 200, no more insulin drip, Otherwise she doing well, pain well controlled, no complaint Review of Systems upon discharge Constitutional: Positive weakness, or fatigue Respiratory: no cough, sputum, wheezing, Cardiac: No chest pain, No orthopnea, Abdomen: No pain, No nausea, No vomiting, No diarrhea, Musculoskeletal: Left elbow pain however is well controlled, no other joint pain, No muscle pain, : No dysuria, No urinary frequency, Neurologic: No paralysis, No weakness, Psychiatric: No depression symptoms, No anhedonism, Heme: No abnormal bleeding/bruising, No clotting problems, Skin: No rash, No itch, No new/changing skin lesions Physical Exam upon discharge, vital signs stable General Appearance: frail, chronically ill looking, Looks better than yesterday , patient also looks younger than her age, WD/WN, no apparent distress, Eyes: normal inspection, PERRL, EOMI, sclerae normal ENT: normal ENT inspection, hearing grossly normal, pharynx normal Neck: supple, no adenopathy, thyroid normal, no JVD, no carotid bruits, trachea midline Respiratory/Chest: chest non-tender, significant decreased breath sounds, occasional wheezing, Cardiovascular: irregular rate, heartbeat 70 bpm, rhythm, no JVD, no murmur Abdomen: normal bowel sounds, non tender, soft, no organomegaly, Extremities: Left elbow is dress, associated with limited range of motion, fingers no cyanosis, radial pulse positive, Neurologic/Psychiatric: world designer II-XII nml as tested, no motor/sensory deficits, alert, normal mood/affect, oriented x 3 Skin: normal color, warm/dry, no rash Lymphatic: no adenopathy Total Time Total Time Spent Total Time Spent (In Minutes): 35 Total Time Includes: Examination of the Patient, Discharge Planning, Medication Reconciliation and Communication With Other Providers Discharge Plan Discharge Items Patient Disposition: Personal Halfway Reason For Visit: CELLULITIS,CHF Discharge Diagnosis: left elbow Abscess Discharge Goals: Decrease discomfort Activity: As commented below Lifting Comment: left forearm no weight bearing or lifting until seeing by ortho Non-emergency contact: Primary Care Provider and Surgeon Call non-emergency contact if: you have any medication questions, your symptoms worsen and your temperature is above 100.5 Diet: Carb Consistent or DM2 Addtl Provider Instructions: you have elbow Abscess s/p Irrigation and debridement of superficial left elbow abscess. you need to continue Dressing change as needed, 4 x 4's, Kerlix and Gian wrap. Continueoral doxycycline for 14 days left forearm no weight bearing or lifting until seeing by ortho you need to continue PT/OT, elbow range of motion, Ice and elevation of left upper extremit you will need to follow up in orthopedic office in 10-14 days for wound check, suture care. continue with ROM exercises with elbow, sling for comfort. orthopedic office [phone]. 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, need to follow up with pcp you need to follow up with pcp in 5-7 days,labd of bmp, mag, cbc in the follow up visit call pcp if have any questions Call 911 and go to the Emergency Room if: * You have tightness or pain in your chest that does not go away with rest or Nitroglycerin * You are very short of breath even with rest Call your doctor if any of the following symptoms or problems start or get worse: * Shortness of breath or difficulty breathing * Wake up at night short of breath * Chest pain * Cough * Swelling of your hands, fee, or legs * More fatigued or tired with your normal activity * Palpitations - sudden fast heart beats WEIGHT * Weigh yourself every morning after using the bathroom. * Use the same scale. * Wear the same amount of clothing. * Write your weight down on your chart. * Call your doctor if you gain more than 2-3 pounds in 1-2 days. MEDICATIONS * Use this discharge instruction sheet for instructions. * Take your medications at the time your doctor ordered. * Do not skip a dose of your medicines. * If you miss a dose of medicine, take as soon as possible, but DO NOT DOUBLE A DOSE. * Read your medicine information when you get home. * Know all of the side effects of your medicine. * Call your doctor's office if you have any side effects. * Be sure all of your doctors know what medicine and herbs you take (including cold, flu, and herbal medicine). * Pain Medicine: If you do not get relief from your pain, please call your doctor for help. Take the following with you to your follow-up doctor appointments: * Weight Chart * Medication List * List of questions Do not drink excessive alcohol, beer or wine. FOLLOW UP WITH [facility] HEART FAILURE PROGRAM 1 WEEK FROM DISCHARGE. Prescriptions: New doxycycline hyclate 100 mg Capsule 100 mg PO BID 14 Days Qty: 28 RF: 0 tramadol 50 mg Tablet 50 mg PO Q4H 5 Days Qty: 10 RF: 0 digoxin 125 mcg Tablet 0.125 mg PO DAILY@1600 30 Days Qty: 30 RF: 0 ferrous sulfate 325 mg (65 mg iron) Tablet,Delayed Release (Dr/Ec) 325 mg PO BIDM 30 Days Qty: 60 RF: 0 lisinopril 2.5 mg Tablet 2.5 mg PO QAM 30 Days Qty: 30 RF: 0 furosemide 40 mg Tablet 40 mg PO BID17 7 Days Qty: 7 RF: 0 potassium chloride [Klor-Con M10] 10 mEq Tablet,Er Particles/Crystals 20 meq PO BID 7 Days Qty: 28 RF: 0 Continue acetaminophen 325 mg Tablet 650 mg PO Q6H MDD 3GM/24HR PRN (Reason: Pain) RF: 0 amlodipine 5 mg Tablet 5 mg PO DAILY RF: 0 acetaminophen 500 mg Tablet 1,000 mg PO BID RF: 0 glucagon (human recombinant) [Glucagon Emergency Kit (human)] 1 mg Recon Soln 1 ml IM UD PRN (Reason: Hypoglycemia) RF: 0 dextromethorphan-guaifenesin [Safe Tussin DM] 10-100 mg/5 mL Liquid 10 ml PO Q4H PRN (Reason: Cough) RF: 0 insulin aspart U-100 [Novolog U-100 Insulin aspart] 100 unit/mL Solution 1 sliding scale dose SUBCUT UD RF: 0 insulin NPH isoph U-100 human [Humulin N NPH Insulin KwikPen] 100 unit/mL (3 mL) Insulin Pen 10 unit SUBCUT DAILY RF: 0 sodium chloride [Saline Mist] 0.65 % Aerosol,[place] 2 spray INTRANASAL DAILY PRN (Reason: Other) RF: 0 insulin glargine [Lantus Solostar U-100 Insulin] 100 unit/mL (3 mL) Insulin Pen 20 unit SUBCUT DAILY RF: 0 cyanocobalamin (vitamin B-12) [Vitamin B-12] 1,000 mcg Tablet 1,000 mcg PO DAILY RF: 0 ranitidine HCl 150 mg Tablet 150 mg PO BID RF: 0 cholecalciferol (vitamin D3) [Vitamin D3] 2,000 unit Tablet 2,000 unit PO DAILY RF: 0 levothyroxine 125 mcg Capsule 125 mcg PO DAILY RF: 0 rivaroxaban [Xarelto] 20 mg Tablet 20 mg PO DAILY RF: 0 vit C,N-Ep-rfvoz-lutein-zeaxan [PreserVision AREDS-2] 725-118-42-1 mg-unit-mg- mg Capsule 1 tab PO BID RF: 0 calcium carbonate-vitamin D3 [Caltrate 600 + D] 600 mg (1,500 mg)-800 unit Tablet,Chewable 1 tab PO BID RF: 0 cranberry extract 500 mg Tablet 500 mg PO DAILY RF: 0 Changed metoprolol succinate 50 mg Tablet Extended Release 24 Hr 200 mg PO DAILY Qty: 0 RF: 0 Stand-Alone Forms: My [facility], Opioid Pain Management Discharge Orders: Discharge Order (Routine); Ordered 09/15/18 Ordered By: Nathanael Nicholas Admission Data Admit Date/Time: 09/03/18 18:51 Attending Provider: Nathanael Nicholas Admit Provider: Kurt Moran Primary Care Provider: Liam Benavides Other Providers: Shaq Bundy ; Kurt Moran ; Byron Cavazos ; Diego Huerta ; Maximilian Mckeon Service: Medical Other Interventions: Discharge Summary Assessment (RN) Last Done: 09/15/18 08:34 DC Date/Time DO NOT enter until pt leaves facility: 09/15/18 12:49
== END 2018-09-15 12:49 | disposition home health service (06) | DRG 981 ==
LOC: ED 13:39 → 2E 18:51 → SUATTDRO 18:51 → 2E 19:54 → 3N 09-10 13:50

== ENCOUNTER 2019-08-04 20:41 | Inpatient (IN) ==
[2019-08-04] MEDS ORDERED: SODIUM CHLORIDE 0.9% 500 ML IV SCH (21:30)
[2019-08-04 21:31] LABS: Basophils # (auto) 0.02 K/uL (0-0.2); Basophils % (auto) 0.2 %; Eosinophils # (auto) 0.05 K/uL (0-0.5); Eosinophils % (auto) 0.6 %; Hemoglobin 13.6 g/dL (12.0-16.0); Immature Granulocytes # (auto) 0.09 K/uL (0.00-0.02); Immature Granulocytes % (auto) 1.1 %; Lymphocytes # (auto) 1.05 K/uL (1.2-3.4); Lymphocytes % (auto) 12.3 %; Mean Corpuscular Hemoglobin 32.2 pg (25-34); Mean Corpuscular Volume 94.8 fL (80-100); Monocytes # (auto) 0.59 K/uL (0.11-0.59); Monocytes % (auto) 6.9 %; Neutrophils # (auto) 6.76 K/uL (1.4-6.5); Neutrophils % (auto) 78.9 %; Platelet Count 211 K/uL (130-400); RDW Coefficient of Variation 13.5 % (11.5-14.5); Red Blood Count 4.22 M/uL (4.2-5.4); White Blood Count 8.56 K/uL (4.8-10.8)
[2019-08-04 21:44] LABS: Alanine Aminotransferase 26 U/L (12-78); Albumin Globulin Ratio 0.8 (0.9-2); Albumin Level 3.5 gm/dl (3.4-5.0); Alkaline Phosphatase 145 U/L (45-117); Aspartate Aminotransferase 48 U/L (15-37); BUN Creatinine Ratio 21.3 (10-20); Beta-Hydroxybutyrate 10.09 mg/dl (0.2-2.81); Bilirubin,Total 0.9 mg/dl (0.2-1); Blood Urea Nitrogen 26 mg/dl (7-18); Calcium 9.4 mg/dl (8.5-10.1); Carbon Dioxide 23 mmol/L (21-32); Chloride 93 mmol/L (98-107); Creatinine Clr Calc Pharmacy 24.7 ml/min; Est GFR (Non-African American) 38.9; Globulin 4.2 gm/dl (2.5-4.0); Glucose 687 mg/dl (70-99); Potassium 4.6 mmol/L (3.5-5.1); Sodium 126 mmol/L (136-145); Total Protein 7.7 gm/dl (6.4-8.2); Troponin I < 0.015 ng/ml (0-0.045)
[2019-08-04 21:49] LABS: Base Excess VBG 0.4 mEq/L; Oxygen Saturation VBG 87.5 %; pH VBG 7.47 (7.36-7.41)
[2019-08-04] MEDS ORDERED: NovoLIN-R INSULIN PER UNIT CHARGE IV STA (21:53)
[2019-08-04 21:56] LABS: Appearance Urine Cloudy (Clear); Bilirubin Urine Negative (Negative); Blood Urine Trace (Negative); Color Urine Colorless; Glucose Urine UA 3+ (Negative); Ketones Urine Trace (Negative); Leukocyte Esterase Urine 1+ (Negative); Nitrite Urine Negative (Negative); Protein Urine 1+ (Negative); Specific Gravity Urine 1.015 (1.000-1.030); Urobilinogen Urine Negative (Negative); pH Urine 6.5 (4.5-7.5)
--- NOTE | 2019-08-04 21:56 | XRay Report ---
XR chest 1V portable CLINICAL HISTORY: hyperglycemia eval for pna dyspnea COMPARISON STUDY: 09/19/2018 FINDINGS: Mild cardiomegaly. Diaphragms are smooth. Lungs are clear. IMPRESSION: No acute process. The above report was generated using voice recognition software. It may contain grammatical, syntax or spelling errors. Electronically signed by: Grupo Lee M.D. 08/04/2019 9:54 PM
[2019-08-04 22:03] LABS: Bacteria Urine Negative (Negative); Epithelial Cell Urine 0-5 /lpf (0-5); RBC Urine 0-4 /hpf (0-4); WBC Urine >30 /hpf (0-5)
[2019-08-04] MEDS ORDERED: cefTRIAXone SODIUM 2,000 MG/70 ML BAG IV STA (22:17)
[2019-08-04] MEDS ORDERED: GABAPENTIN 100 MG CAP PO STA (22:59)
[2019-08-04] MEDS ORDERED: ACETAMINOPHEN 500 MG TAB PO STA (23:34)
--- NOTE | 2019-08-04 23:51 | History & Physical Report ---
Date of Service August 04, 2019 Assessment & Plan (1) Hyperglycemia: 89-year-old female with history of DM 2, hypertension, hyperlipidemia, diastolic and systolic CHF, A. fib, mitral regurg and tricuspid regurg, pulmonary hypertension, hypothyroidism, CKD 3, dementia, anemia, GERD, macular degeneration presents with concern for hyperglycemia from intermediate tonight. ED course: Glucose was 687. She also had pseudohyponatremia and mild elevation in her BUN/creatinine. UA was questionable and urine culture was ordered. She received NS 5001, Rocephin for potential UTI and 10 units of insulin regular. Her sugar improved to 386. Hyperglycemia: Hx of DM 2 Poorly controlled likely in the setting of UTI/acute stress Afebrile, no WBC elevation BSG 687 on presentation Beta hydroxybutyrate 10.09 No anion gap and bicarb 23 UA with 3+ glucose and trace ketones Received 10 units regular insulinBSG improved to 386 Continued home Lantus modified to 30 units twice daily Started on NovoLog sliding scale (held patient's home NovoLog and NPH) Received 500 cc NS bolus, continued on LR at 125 cc/h x 2 L BSG every 4 hours Continue to monitor Possible UTI Unable to confirm symptoms due to patient being demented UA: Trace blood, 1+ leuk esterase, greater than 30 WBC no bacteria or nitrites Urine culture pending Started on Rocephin LISSETT on CKD 3 Likely in the setting of dehydration secondary to hyperglycemia BUN/creatinine 26/1.2 -baseline creatinine around 1 On IV fluids Hold lisinopril Avoid nephrotoxic agents Continue to monitor BMP History of hypertension/hyperlipidemia/CHF/A. fib/MR/TR Continue home amlodipine, digoxin, metoprolol and rivaroxaban Hold home lisinopril in the setting of LISSETT History of microcytic anemia Hemoglobin now 13.6, possibly hemoconcentrated setting of dehydration Continue home ferrous sulfate Hypothyroidism Continue home levothyroxine GERD Continue home famotidine FEN/GI: LR 125 cc/h x 2 L, DM 2 diet DVT prophylaxis: Rivaroxaban Code: DNR/DNI Disposition: MedSurg with telemetry (2) UTI (urinary tract infection): (3) Tricuspid regurgitation: (4) Pulmonary HTN: (5) Chronic kidney disease with symptom management only, stage 3 (moderate): (6) Iron deficiency anemia: (7) Mitral regurgitation: (8) CHF (congestive heart failure): (9) Acute kidney injury: (10) Diabetes: (11) Macular degeneration: (12) HTN (hypertension): (13) Atrial fibrillation, new onset: (14) Hypothyroidism: History of Present Illness Chief Complaint: Hyperglycemia Primary Care Provider: Iam Vaz [facility] 89-year-old female with history of DM 2, hypertension, hyperlipidemia, diastolic and systolic CHF, A. fib, mitral regurg and tricuspid regurg, pulmonary hypertension, hypothyroidism, CKD 3, dementia, anemia, GERD, macular degeneration presents with concern for hyperglycemia from intermediate tonight. She is otherwise feeling well and denies any symptoms aside from her lower extremity pain which she has every night and takes Tylenol for. Per daughter she does not appear more confused than her baseline given her history of Dementia. She has some chronic incontinence and wears a diaper. Usually she appears more altered with her UTIs. Patient denies any fever, chills, headache, lightheadedness, chest pain, shortness of breath, abdominal pain, nausea, vomiting, diarrhea, constipation, dysuria, increased urinary frequency. ED course: Glucose was 687. She also had pseudohyponatremia and mild elevation in her BUN/creatinine. UA was questionable and urine culture was ordered. She received NS 5001, Rocephin for potential UTI and 10 units of insulin regular. Her sugar improved to 386. Allergies Allergy/AdvReac Type Severity Reaction Status Date / Time erythromycin base Allergy Unknown Unverified 08/04/19 22:45 Home Medications Home Medications Medication Instructions Recorded Confirmed Type Caltrate 600 plus D 1 tab PO BID 05/16/18 08/04/19 History Glucagon Emergency Kit (human) 1 ml IM UD PRN 09/03/18 08/04/19 History Lantus Solostar U-100 Insulin 60 unit SUBCUT DAILY 09/03/18 08/04/19 History amlodipine 5 mg PO DAILY 09/03/18 08/04/19 History sodium chloride [Saline Mist] 2 spray INTRANASAL DAILY PRN 09/03/18 08/04/19 History ferrous sulfate 325 mg PO BID 10/13/18 08/04/19 History acetaminophen 1,000 mg PO BID 02/26/19 08/04/19 History acetaminophen 650 mg PO DAILY MDD 3gm/24hr 02/26/19 08/04/19 History cholecalciferol (vitamin D3) 2,000 unit PO DAILY 02/26/19 08/04/19 History [Vitamin D3] digoxin 125 mcg PO DAILY 02/26/19 08/04/19 History insulin NPH isoph U-100 human 16 unit SUBCUT DAILY 02/26/19 08/04/19 History [Novolin N NPH U-100 Insulin] insulin aspart U-100 [Novolog 0 unit SUBCUT BID 02/26/19 08/04/19 History Flexpen U-100 Insulin] metoprolol succinate 200 mg PO DAILY 02/26/19 08/04/19 History rivaroxaban 20 mg tablet 20 mg PO DAILY #30 tab 05/07/19 08/04/19 Rx lisinopril 2.5 mg tablet 2.5 mg PO DAILY #30 tab 06/10/19 08/04/19 Rx levothyroxine 125 mcg tablet 137 mcg PO DAILY tab 07/05/19 08/04/19 History famotidine 20 mg PO DAILY 08/04/19 08/04/19 History Past Med/Surg History Medical History Abnormal EKG (Acute) Abscess of bursa, left elbow Abscess, elbow Acute dehydration (Acute) Acute hyperglycemia (Acute) Acute kidney injury (Acute) Acute on chronic systolic heart failure (Acute) Acute thoracic back pain (Acute) Afib Altered mental status Altered mental status (Acute) Anemia (Acute) Anemia (Acute) Atrial fibrillation (Chronic) Atrial fibrillation, new onset Back pain Cellulitis (Acute) CHF (congestive heart failure) (Acute) Chronic kidney disease with symptom management only, stage 3 (moderate) Cough (Acute) Diabetes (Chronic) Diabetes mellitus type 2 with complications Diarrhea DKA (diabetic ketoacidoses) (Acute) DKA (diabetic ketoacidosis) (Acute) DVT prophylaxis DVT prophylaxis DVT prophylaxis Edema Encounter for pre-operative examination Epistaxis (Acute) Fever (Acute) HTN (hypertension) (Chronic) Hyperkalemia (Acute) Hypertension Hypothermia (Acute) Hypothyroidism Iron deficiency anemia Left ventricular dysfunction Macular degeneration (Chronic) Microcytic anemia (Acute) Mitral regurgitation Nondisplaced fracture of right femur Pubic ramus fracture (Acute) Pulmonary HTN Right-sided heart failure Sepsis Sepsis (Acute) SIRS (systemic inflammatory response syndrome) (Acute) Symptomatic anemia (Acute) Tricuspid regurgitation UTI (urinary tract infection) (Acute) UTI (urinary tract infection) Weakness (Acute) Yeast infection Surgical History Status post hip surgery Status post hysterectomy Family History Other DM type 2 (diabetes mellitus, type 2) Hypertension Social History Preferred Language: [place] Communication Ability: Effective Visual Impairment: No Limitations Supervisor [employer]works [employer] Required: No Beliefs That Will Affect Care: None Current Living Situation: Shelter Current Living Situation Comment: resides at [facility] Feels Safe at Home: Yes Smoking Status: Former smoker Second Hand Exposure: No ; Hx Alcohol Use: No Hx Substance Use: No Review of Systems Review of Systems: As per HPI Physical Exam Physical Exam: General: In NAD, pleasant HEENT: dry oral mucosa Neuro: Demented Pulm: CTAB equal breath sounds bilaterally CV: RRR, no m/r/g Abdomen:+BS, no TTP in all quadrants, non-distended LE: no LE edema, no calf TTP Results & Data Vital Signs (Past 12 Hours) Vital Signs Temp Pulse Pulse Resp BP BP Pulse Ox 08/04/19 23:46 54 L 20 145/63 H 94 08/04/19 22:15 61 20 169/72 H 94 08/04/19 21:39 66 18 178/67 H 94 08/04/19 21:31 94 08/04/19 20:48 37 C 61 20 189/112 H 95 Laboratory Results Abnormal lab results 08/04/19 08/04/19 08/04/19 Range/Units 21:00 21:00 21:25 Immature Gran # (Auto) 0.09 H (0.00-0.02) K/uL Neut # (Auto) 6.76 H (1.4-6.5) K/uL Lymph # (Auto) 1.05 L (1.2-3.4) K/uL VBG pH (7.36-7.41) VBG pCO2 (38-50) mmHg Sodium 126 L (136-145) mmol/L Chloride 93 L (98-107) mmol/L BUN 26 H (7-18) mg/dl Creatinine 1.23 H (0.6-1.2) mg/dl BUN/Creatinine Ratio 21.3 H (10-20) Glucose 687 H* (70-99) mg/dl POC Glucose (70-99) AST 48 H (15-37) U/L Alkaline Phosphatase 145 H (45-117) U/L Globulin 4.2 H (2.5-4.0) gm/dl Albumin/Globulin Ratio 0.8 L (0.9-2) Beta-Hydroxybutyric Acd 10.09 H (0.2-2.81) mg/dl Urine Appearance Cloudy A (Clear) Urine Protein 1+ H (Negative) Urine Glucose (UA) 3+ H (Negative) Urine Ketones Trace H (Negative) Urine Blood Trace H (Negative) Ur Leukocyte Esterase 1+ H (Negative) Urine WBC >30 H (0-5) /hpf 08/04/19 08/04/19 08/04/19 Range/Units 21:37 22:55 23:40 Immature Gran # (Auto) (0.00-0.02) K/uL Neut # (Auto) (1.4-6.5) K/uL Lymph # (Auto) (1.2-3.4) K/uL VBG pH 7.47 H (7.36-7.41) VBG pCO2 33 L (38-50) mmHg Sodium (136-145) mmol/L Chloride (98-107) mmol/L BUN (7-18) mg/dl Creatinine (0.6-1.2) mg/dl BUN/Creatinine Ratio (10-20) Glucose (70-99) mg/dl POC Glucose 460 H* 386 H* (70-99) AST (15-37) U/L Alkaline Phosphatase (45-117) U/L Globulin (2.5-4.0) gm/dl Albumin/Globulin Ratio (0.9-2) Beta-Hydroxybutyric Acd (0.2-2.81) mg/dl Urine Appearance (Clear) Urine Protein (Negative) Urine Glucose (UA) (Negative) Urine Ketones (Negative) Urine Blood (Negative) Ur Leukocyte Esterase (Negative) Urine WBC (0-5) /hpf Diagnostic Findings XR chest 1V portable CLINICAL HISTORY: hyperglycemia eval for pna dyspnea COMPARISON STUDY: 09/19/2018 FINDINGS: Mild cardiomegaly. Diaphragms are smooth. Lungs are clear. IMPRESSION: No acute process. Code Status & VTE Plan Code Status DNR/DNI Supervising Physician Co-Signing Physician Notes Patient seen and examined, chart reviewed, case discussed with Dr. Dumas and I agree with her assessment and plan as documented above. Briefly, patient is an 89yo C female presenting with hyperglycemia, XT=669 on arrival. MCC diabetic on insulin therapy. Resides and [facility] and has medications administered to her daily. No additional complaints at this time. Labs without anion gap metabolic acidosis, does not appear to be DKA/HHS at this time. On exam she is afebrile, hemodynamically stable, nontoxic in appearance Skin - no rash HEENT - dry mucus membranes Heart - +S1/S2, regular, no m/r/g Lungs - CTA Abd - +BS, soft, NT/ND Ext - no edema labs and images reviewed Assessment/plan - -Basal/bolus insulin, frequent blood sugar monitoring -Ceftriaxone, follow urine cultures -Remainder of plan as above Resident Activity Tracking Resident Involvement: Resident Care Provided Care Provided: Adult Hospital Medicine (1) UTI (urinary tract infection) Hematuria presence: without hematuria Urinary tract infection type: site unspecified Qualified Code(s): N39.0 - Urinary tract infection, site not specified (2) Diabetes Diabetes mellitus complication status: with unspecified complications Diabetes mellitus [facility] insulin use: with vermin exterminator use Diabetes mellitus type: type 2 Qualified Code(s): E11.8 - Type 2 diabetes mellitus with unspecified complications; Z79.4 - MCC (current) use of insulin (3) CHF (congestive heart failure) Heart failure chronicity: acute on chronic Heart failure type: combined systolic and diastolic Qualified Code(s): I50.43 - Acute on chronic combined systolic (congestive) and diastolic (congestive) heart failure (4) Tricuspid regurgitation Cardiac valve disease etiology: nonrheumatic Qualified Code(s): I36.1 - Nonrheumatic tricuspid (valve) insufficiency (5) Hypothyroidism Hypothyroidism type: acquired Qualified Code(s): E03.9 - Hypothyroidism, unspecified (6) Mitral regurgitation Cardiac valve disease etiology: etiology unspecified Qualified Code(s): I34.0 - Nonrheumatic mitral (valve) insufficiency (7) Iron deficiency anemia Iron deficiency anemia type: unspecified iron deficiency Qualified Code(s): D50.9 - Iron deficiency anemia, unspecified (8) HTN (hypertension) Hypertension type: essential hypertension Qualified Code(s): I10 - Essential (primary) hypertension (9) Macular degeneration Eye laterality: bilateral Macular degeneration type: unspecified type Qualified Code(s): H35.30 - Unspecified macular degeneration
--- NOTE | 2019-08-05 00:16 | Emergency Department Note ---
Entered by Ben Norton acting as a scribe for Olvin Anderson MD History of Present Illness General Chief complaint: Hyperglycemia Stated complaint: hyperglycemia Time Seen by Provider: 08/04/19 21:12 Source: patient and family Limitations: no limitations History of Present Illness Onset (ago): day(s) (today) Relieved By: not by medication (insulin) Exacerbated By: + other (urinary incontinence - laying down) Associated symptoms: + denies other symptoms (abdominal pain), + cough and + other (diarrhea); no chest pain, no fever/chills (fevers) and no headaches Treatments prior to arrival: other (insulin) The patient is a 89 year old female who presents to the Emergency Room with complaints of hyperglycemia starting today. The patient's family notes the patient lives at [facility]. The family states the patient had a blood sugar of 600 today. The family states the patient was given insulin prior to arrival, but the patient's blood sugar was still in the 600s. The family states the patient's blood sugar was not that high yesterday. Her blood sugars tend to vacillate. She states she has been coughing. She notes she does not take metformin. The patient states she has been having an episode of diarrhea after she takes her medications in the morning. She states she does not know how long she has been having diarrhea but states it has been at least 2 days. The patient denies chest pain, abdominal pain, headaches, and fevers. She states she has been eating okay. She states she takes Xarelto. She states she has urinary incontinence when she is laying down. Her family states that she does have a history of frequent UTIs. Home Medications Home Medications Medication Instructions Recorded Confirmed Type Caltrate 600 plus D 1 tab PO BID 05/16/18 08/04/19 History Glucagon Emergency Kit (human) 1 ml IM UD PRN 09/03/18 08/04/19 History Lantus Solostar U-100 Insulin 60 unit SUBCUT DAILY 09/03/18 08/04/19 History amlodipine 5 mg PO DAILY 09/03/18 08/04/19 History sodium chloride [Saline Mist] 2 spray INTRANASAL DAILY PRN 09/03/18 08/04/19 History ferrous sulfate 325 mg PO BID 10/13/18 08/04/19 History acetaminophen 1,000 mg PO BID 02/26/19 08/04/19 History acetaminophen 650 mg PO DAILY MDD 3gm/24hr 02/26/19 08/04/19 History cholecalciferol (vitamin D3) 2,000 unit PO DAILY 02/26/19 08/04/19 History [Vitamin D3] digoxin 125 mcg PO DAILY 02/26/19 08/04/19 History insulin NPH isoph U-100 human 16 unit SUBCUT DAILY 02/26/19 08/04/19 History [Novolin N NPH U-100 Insulin] insulin aspart U-100 [Novolog 0 unit SUBCUT BID 02/26/19 08/04/19 History Flexpen U-100 Insulin] metoprolol succinate 200 mg PO DAILY 02/26/19 08/04/19 History rivaroxaban 20 mg tablet 20 mg PO DAILY #30 tab 05/07/19 08/04/19 Rx lisinopril 2.5 mg tablet 2.5 mg PO DAILY #30 tab 06/10/19 08/04/19 Rx levothyroxine 125 mcg tablet 137 mcg PO DAILY tab 07/05/19 08/04/19 History famotidine 20 mg PO DAILY 08/04/19 08/04/19 History Allergies Allergy/AdvReac Type Severity Reaction Status Date / Time erythromycin base Allergy Unknown Unverified 08/04/19 22:45 Past Med/Surg History Medical History Abnormal EKG (Acute) Abscess of bursa, left elbow Abscess, elbow Acute dehydration (Acute) Acute hyperglycemia (Acute) Acute kidney injury (Acute) Acute on chronic systolic heart failure (Acute) Acute thoracic back pain (Acute) Afib Altered mental status Altered mental status (Acute) Anemia (Acute) Anemia (Acute) Atrial fibrillation (Chronic) Atrial fibrillation, new onset Back pain Cellulitis (Acute) CHF (congestive heart failure) (Acute) Chronic kidney disease with symptom management only, stage 3 (moderate) Cough (Acute) Diabetes (Chronic) Diabetes mellitus type 2 with complications Diarrhea DKA (diabetic ketoacidoses) (Acute) DKA (diabetic ketoacidosis) (Acute) DVT prophylaxis DVT prophylaxis DVT prophylaxis Edema Encounter for pre-operative examination Epistaxis (Acute) Fever (Acute) HTN (hypertension) (Chronic) Hyperkalemia (Acute) Hypertension Hypothermia (Acute) Hypothyroidism Iron deficiency anemia Left ventricular dysfunction Macular degeneration (Chronic) Microcytic anemia (Acute) Mitral regurgitation Nondisplaced fracture of right femur Pubic ramus fracture (Acute) Pulmonary HTN Right-sided heart failure Sepsis Sepsis (Acute) SIRS (systemic inflammatory response syndrome) (Acute) Symptomatic anemia (Acute) Tricuspid regurgitation UTI (urinary tract infection) (Acute) UTI (urinary tract infection) Weakness (Acute) Yeast infection Surgical History Status post hip surgery Status post hysterectomy Family History Other DM type 2 (diabetes mellitus, type 2) Hypertension Social History Preferred Language: Vietnamese Communication Ability: Impaired Visual Impairment: No Limitations Election Watcher Required: No Beliefs That Will Affect Care: None Current Living Situation: Personal Care Facility Current Living Situation Comment: resides at [facility] Feels Safe at Home: Yes Smoking Status: Former smoker Second Hand Exposure: No ; Hx Alcohol Use: No Hx Substance Use: No Review of Systems See HPI for pertinent positives & negatives. and A total of 10 systems reviewed and were otherwise negative Physical Exam Vital Signs Vital Signs - 24 hr 08/04/19 20:48 08/04/19 21:31 08/04/19 21:39 Temperature 37 C Temperature Source Oral Pulse Rate 61 Pulse Rate [Right Finger] 66 Pulse Rhythm Irregular Pulse Rhythm [Right Finger] Regular Pulse Strength Normal Pulse Strength [Right Finger] Normal Respiratory Rate 20 18 Respiratory Effort / Characteristics Non-Labored Spontaneous Non-Labored Spontaneous Respiratory Depth Normal Normal Respiratory Pattern Regular Blood Pressure 189/112 H Blood Pressure [Right Arm] 178/67 H Blood Pressure Mean 137 Blood Pressure Mean [Right Arm] 104 Blood Pressure Position Lying Pulse Oximetry 95 94 94 Oxygen Delivery Method Room Air Room Air Sepsis Recent Fever Within 48 Hours No Sepsis Action Taken by Nursing No Action Required 08/04/19 22:15 08/04/19 23:46 Temperature Temperature Source Pulse Rate Pulse Rate [Right Finger] 61 54 L Pulse Rhythm Pulse Rhythm [Right Finger] Regular Regular Pulse Strength Pulse Strength [Right Finger] Normal Normal Respiratory Rate 20 20 Respiratory Effort / Characteristics Non-Labored Spontaneous Non-Labored Spontaneous Respiratory Depth Normal Normal Respiratory Pattern Regular Blood Pressure Blood Pressure [Right Arm] 169/72 H 145/63 H Blood Pressure Mean Blood Pressure Mean [Right Arm] 104 90 Blood Pressure Position Pulse Oximetry 94 94 Oxygen Delivery Method Room Air Room Air Sepsis Recent Fever Within 48 Hours Sepsis Action Taken by Nursing Constitutional: Vital signs reviewed. Eyes: Pupils are equal round reactive to light. Conjunctiva are noninjected. ENT: Pharynx is clear without erythema or exudate. Mucous membranes are moist. Neck supple without meningeal signs. Respiratory: Clear to auscultation bilaterally. Breath sounds are equal bilaterally. Cardiovascular: Irregularly irregular rhythm. Regular rate. No rubs or gallops. GI: Soft, nondistended and nontender. Bowel sounds are present. Musculoskeletal: No peripheral edema. No lower extremity tenderness. Integumentary: No cyanosis. Neurological: The patient is awake and alert. No focal deficits. Psychiatric: Normal affect. Course Course 2114: The patient was evaluated in room B4B, and a complete history and physical examination were performed. 2014: I reevaluated the patient. I spoke to the patient's family about the patient's test results. The patient received insulin 5 minutes ago. She is currently sleeping. 2258: I discussed the test results with the patient. She states she started to have pain in her feet bilaterally 15 minutes ago. Her feet do not look infected. She is not sure if she has neuropathy or not. 2301: I discussed the patient's case with Dr. Carmichael - [facility] Hospitalist. She will evaluate the patient for further management. Administered Medications Discontinued Medications Acetaminophen (Tylenol) 1,000 mg PO NOW STA Stop: 08/04/19 23:35 Last Admin: 08/04/19 23:45 Dose: 1,000 mg Documented by: [id number] Gabapentin (Neurontin) 100 mg PO NOW STA Stop: 08/04/19 23:00 Last Admin: 08/04/19 23:10 Dose: 100 mg Documented by: [id number] Sodium Chloride (Nss) 500 mls @ 999 mls/hr IV .Q31M SAVANNAH Stop: 08/04/19 22:00 Last Infusion: 08/04/19 22:30 Dose: 0 mls/hr Documented by: [id number] Admin: 08/04/19 21:42 Dose: 999 mls/hr Documented by: [id number] Ceftriaxone Sodium (Rocephin) 2,000 mg in 70 mls @ 140 mls/hr IV NOW STA Stop: 08/04/19 22:46 Last Infusion: 08/04/19 23:06 Dose: 0 mls/hr Documented by: [id number] Admin: 08/04/19 22:28 Dose: 140 mls/hr Documented by: [id number] Insulin Human Regular (Novolin R U-100 Per Unit) 10 units IV NOW STA Stop: 08/04/19 21:54 Last Admin: 08/04/19 22:13 Dose: 10 units Documented by: [id number] Cosigned by: [id number] Medical Decision Making Differential Diagnosis Differential Dignosis includes but is not limited to hyperglycemia, medication non-compliance, DKA, dehydration, UTI, and pneumonia. Medical Records Attestation: I reviewed the patient's medical records. The patient was seen in the ED in March 2019 for diarrhea and UTI. Stool culture showed no growth. She had a urine culture done on July 09 which showed alpha and gamma strep. Home Medications Current Medication List: was personally reviewed by me Laboratory Data Attestation: I reviewed the patient's lab results. Result diagrams: 08/04/19 21:00 08/04/19 21:00 Lab Results 08/04/19 08/04/19 08/04/19 Range/Units 21:00 21:00 21:25 WBC 8.56 (4.8-10.8) K/uL RBC 4.22 (4.2-5.4) M/uL Hgb 13.6 (12.0-16.0) g/dL Hct 40.0 (37-47) % MCV 94.8 (80-100) fL MCH 32.2 (25-34) pg MCHC 34.0 (32-36) g/dL RDW Std Deviation 46.0 (36.4-46.3) fL RDW Coeff of Chris 13.5 (11.5-14.5) % Plt Count 211 (130-400) K/uL MPV 10.0 (7.4-10.4) fL Immature Gran % (Auto) 1.1 % Neut % (Auto) 78.9 % Lymph % (Auto) 12.3 % Vernon % (Auto) 6.9 % Eos % (Auto) 0.6 % Baso % (Auto) 0.2 % Immature Gran # (Auto) 0.09 H (0.00-0.02) K/uL Neut # (Auto) 6.76 H (1.4-6.5) K/uL Lymph # (Auto) 1.05 L (1.2-3.4) K/uL Vernon # (Auto) 0.59 (0.11-0.59) K/uL Eos # (Auto) 0.05 (0-0.5) K/uL Baso # (Auto) 0.02 (0-0.2) K/uL VBG pH (7.36-7.41) VBG pCO2 (38-50) mmHg VBG pO2 mmHg VBG HCO3 mmol/L VBG O2 Saturation % VBG Base Excess mEq/L Barometric Pressure mm/Hg Sodium 126 L (136-145) mmol/L Potassium 4.6 (3.5-5.1) mmol/L Chloride 93 L (98-107) mmol/L Carbon Dioxide 23 (21-32) mmol/L Anion Gap 11.0 (3-11) BUN 26 H (7-18) mg/dl Creatinine 1.23 H (0.6-1.2) mg/dl Est Cr Clr Drug Dosing 24.7 ml/min Est GFR ( Amer) 45.0 Est GFR (Non-Af Amer) 38.9 BUN/Creatinine Ratio 21.3 H (10-20) Glucose 687 H* (70-99) mg/dl POC Glucose (70-99) Calcium 9.4 (8.5-10.1) mg/dl Total Bilirubin 0.9 (0.2-1) mg/dl AST 48 H (15-37) U/L ALT 26 (12-78) U/L Alkaline Phosphatase 145 H (45-117) U/L Troponin I < 0.015 (0-0.045) ng/ml Total Protein 7.7 (6.4-8.2) gm/dl Albumin 3.5 (3.4-5.0) gm/dl Globulin 4.2 H (2.5-4.0) gm/dl Albumin/Globulin Ratio 0.8 L (0.9-2) Beta-Hydroxybutyric Acd 10.09 H (0.2-2.81) mg/dl Urine Color Colorless Urine Appearance Cloudy A (Clear) Urine pH 6.5 (4.5-7.5) Ur Specific [place] 1.015 (1.000-1.030) Urine Protein 1+ H (Negative) Urine Glucose (UA) 3+ H (Negative) Urine Ketones Trace H (Negative) Urine Blood Trace H (Negative) Urine Nitrite Negative (Negative) Urine Bilirubin Negative (Negative) Urine Urobilinogen Negative (Negative) Ur Leukocyte Esterase 1+ H (Negative) Urine RBC 0-4 (0-4) /hpf Urine WBC >30 H (0-5) /hpf Ur Epithelial Cells 0-5 (0-5) /lpf Urine Bacteria Negative (Negative) 08/04/19 08/04/19 08/04/19 Range/Units 21:37 22:55 23:40 WBC (4.8-10.8) K/uL RBC (4.2-5.4) M/uL Hgb (12.0-16.0) g/dL Hct (37-47) % MCV (80-100) fL MCH (25-34) pg MCHC (32-36) g/dL RDW Std Deviation (36.4-46.3) fL RDW Coeff of Chris (11.5-14.5) % Plt Count (130-400) K/uL MPV (7.4-10.4) fL Immature Gran % (Auto) % Neut % (Auto) % Lymph % (Auto) % Vernon % (Auto) % Eos % (Auto) % Baso % (Auto) % Immature Gran # (Auto) (0.00-0.02) K/uL Neut # (Auto) (1.4-6.5) K/uL Lymph # (Auto) (1.2-3.4) K/uL Vernon # (Auto) (0.11-0.59) K/uL Eos # (Auto) (0-0.5) K/uL Baso # (Auto) (0-0.2) K/uL VBG pH 7.47 H (7.36-7.41) VBG pCO2 33 L (38-50) mmHg VBG pO2 55 mmHg VBG HCO3 24 mmol/L VBG O2 Saturation 87.5 % VBG Base Excess 0.4 mEq/L Barometric Pressure 723.8 mm/Hg Sodium (136-145) mmol/L Potassium (3.5-5.1) mmol/L Chloride (98-107) mmol/L Carbon Dioxide (21-32) mmol/L Anion Gap (3-11) BUN (7-18) mg/dl Creatinine (0.6-1.2) mg/dl Est Cr Clr Drug Dosing ml/min Est GFR ( Amer) Est GFR (Non-Af Amer) BUN/Creatinine Ratio (10-20) Glucose (70-99) mg/dl POC Glucose 460 H* 386 H* (70-99) Calcium (8.5-10.1) mg/dl Total Bilirubin (0.2-1) mg/dl AST (15-37) U/L ALT (12-78) U/L Alkaline Phosphatase (45-117) U/L Troponin I (0-0.045) ng/ml Total Protein (6.4-8.2) gm/dl Albumin (3.4-5.0) gm/dl Globulin (2.5-4.0) gm/dl Albumin/Globulin Ratio (0.9-2) Beta-Hydroxybutyric Acd (0.2-2.81) mg/dl Urine Color Urine Appearance (Clear) Urine pH (4.5-7.5) Ur Specific [place] (1.000-1.030) Urine Protein (Negative) Urine Glucose (UA) (Negative) Urine Ketones (Negative) Urine Blood (Negative) Urine Nitrite (Negative) Urine Bilirubin (Negative) Urine Urobilinogen (Negative) Ur Leukocyte Esterase (Negative) Urine RBC (0-4) /hpf Urine WBC (0-5) /hpf Ur Epithelial Cells (0-5) /lpf Urine Bacteria (Negative) Imaging Data Radiologist's Impression: Radiology results as stated below per my review and the radiologist's interpretation: XR chest 1V portable CLINICAL HISTORY: hyperglycemia eval for pna dyspnea COMPARISON STUDY: 09/19/2018 FINDINGS: Mild cardiomegaly. Diaphragms are smooth. Lungs are clear. IMPRESSION: No acute process. The above report was generated using voice recognition software. It may contain grammatical, syntax or spelling errors. Electronically signed by: Grupo Lee M.D. 08/04/2019 9:54 PM ECG Data Attestation: I personally reviewed and interpreted this ECG as follows: Indication: + other (hyperglycemia) Rate (beats per minute): 60 Rhythm: + atrial fibrillation ECG ST segments: + ST depression (lateral) and + T-wave inversions (lateral) ECG Findings: + Q waves (septal) and + Other (QRS interval is 86 ms); no PVCs Comparison ECG Date: from (09/26/18) Change: no significant change Blood Pressure Blood Pressure Findings: Elevated blood pressure Blood Pressure Disposition: further management by hospitalist MDM Narrative I did evaluate the patient as noted above. Patient is presenting with hyperglycemia and some urinary symptoms. Her BSG here is over 600. IV access was established. I did treat her with normal saline IV. I did order and personally review the patient's 12-lead EKG as described above. She has ST depressions and T wave inversions but they are unchanged from her prior EKG from September. She denies having any chest pain or shortness of breath. I did order and personally reviewed the images of the patient's chest x-ray as described above. Chest x-ray does not demonstrate pneumonia. I did order a urine analysis. She does have evidence of a UTI. Urine culture was sent. I did treat her with Rocephin IV. She has a prior history of Enterobacter. I did order and review the patient's blood work as noted in the electronic medical record. CBC is unremarkable without evidence of leukocytosis or anemia. Chemistries demonstrate a sodium of 126. This is likely pseudohyponatremia from hyperglycemia. Her glucose is over 600. She has serum ketones but no acidosis. Creatinine is 1.2. I did treat the patient with 10 units of regular insulin. We did check her sugar an hour later. It was still over 400. I did discuss the test results with the patient. She will be hospitalized for further care and evaluation. I did discuss case with the hospitalist and director case management. Impression & Plan Hyperglycemia, UTI (urinary tract infection), Foot pain, bilateral, Anticoagulated Discharge Plan Visit Data Chief Complaint: Hyperglycemia Stated Complaint: hyperglycemia ED Provider: Olvin Anderson Discharge Problem: Hyperglycemia, UTI (urinary tract infection), Foot pain, bilateral, Anticoagulated Patient Disposition: Being Evaluated by Hospitalist Forms Stand Alone Forms: [facility] Prescriptions Prescriptions: No Action Xarelto 20 mg tablet 20 mg PO DAILY Qty: 30 RF: 5 lisinopril 2.5 mg tablet 2.5 mg PO DAILY Qty: 30 RF: 5 levothyroxine 125 mcg tablet 137 mcg PO DAILY RF: 0 amlodipine 5 mg Tablet 5 mg PO DAILY RF: 0 Glucagon Emergency Kit (human) 1 mg Recon Soln 1 ml IM UD PRN (Reason: Hypoglycemia) RF: 0 sodium chloride [Saline Mist] 0.65 % Aerosol,[place] 2 spray INTRANASAL DAILY PRN (Reason: Other) RF: 0 Lantus Solostar U-100 Insulin 100 unit/mL (3 mL) Insulin Pen 60 unit SUBCUT DAILY RF: 0 metoprolol succinate 200 mg Tablet Extended Release 24 Hr 200 mg PO DAILY RF: 0 digoxin 125 mcg Tablet 125 mcg PO DAILY RF: 0 acetaminophen 325 mg Tablet 650 mg PO DAILY MDD 3gm/24hr RF: 0 acetaminophen 500 mg Tablet 1,000 mg PO BID RF: 0 Novolin N NPH U-100 Insulin 100 unit/mL suspension 16 unit subcut DAILY RF: 0 Novolog Flexpen U-100 Insulin 100 unit/mL (3 mL) insulin pen 0 unit subcut BID RF: 0 cholecalciferol (vitamin D3) [Vitamin D3] 2,000 unit Tablet 2,000 unit PO DAILY RF: 0 Caltrate 600 plus D 600 mg (1,500 mg)-800 unit Tablet,Chewable 1 tab PO BID RF: 0 ferrous sulfate 325 mg (65 mg iron) Tablet 325 mg PO BID RF: 0 famotidine 20 mg tablet 20 mg PO DAILY RF: 0 Referrals Referrals: [facility], [facility] [Primary Care Provider] - Discharge Problem: UTI (urinary tract infection) Qualifiers: Urinary tract infection type: site unspecified Hematuria presence: without hematuria Qualified Code(s): N39.0 - Urinary tract infection, site not specified The scribe's documentation has been prepared under my direction and personally reviewed by me in its entirety. I confirm that the note above accurately reflec ts all work, treatment, procedures, and medical decision making performed by me.
[2019-08-05] MEDS ORDERED: SODIUM CHLORIDE 0.65% NA SOLN 45 ML (OCEAN) PRN (01:39)
[2019-08-05] MEDS ORDERED: LACTATED RINGER'S 1,000 ML IV SCH (01:39)
[2019-08-05] MEDS ORDERED: DEXTROSE 50% 50 ML SYRINGE IV PRN (02:00)
[2019-08-05] MEDS ORDERED: GLUCOSE 40% GEL 15 GM TUBE PO PRN (02:00)
[2019-08-05] MEDS ORDERED: CARBOHYDRATES FOR HYPOGLYCEMIA PO PRN (02:00)
[2019-08-05] MEDS ORDERED: GLUCAGON FOR INJ 1 MG VIAL IM PRN (02:00)
[2019-08-05] MEDS ORDERED: GLUCOSE 10 TABS/TUBE PO PRN (02:00)
[2019-08-05] MEDS: INSULIN GLARGINE SOLOSTAR 100 UNITS/ML 3 ML PEN SQ SCH ×2 (02:05→09:01)
[2019-08-05] MEDS: INSULIN ASPART 100 UNITS/ML 3 ML PEN SC SCH ×6 (02:06→21:00)
--- NOTE | 2019-08-05 03:37 | Billing Data ---
Coding Level of Care Code 13058 OBS Care - Level 3
[2019-08-05] MEDS: LEVOTHYROXINE SODIUM 137 MCG TABLET PO SCH (06:10)
[2019-08-05 07:52] LABS: Basophils # (auto) 0.03 K/uL (0-0.2); Basophils % (auto) 0.5 %; Eosinophils # (auto) 0.17 K/uL (0-0.5); Eosinophils % (auto) 2.7 %; Hematocrit (blood only) 33.9 % (37-47); Hemoglobin 11.6 g/dL (12.0-16.0); Immature Granulocytes # (auto) 0.04 K/uL (0.00-0.02); Immature Granulocytes % (auto) 0.6 %; Lymphocytes # (auto) 1.01 K/uL (1.2-3.4); Lymphocytes % (auto) 16.3 %; Mean Corpuscular Hemoglobin 31.5 pg (25-34); Mean Corpuscular Hgb Conc 34.2 g/dL (32-36); Mean Corpuscular Volume 92.1 fL (80-100); Mean Platelet Volume 9.4 fL (7.4-10.4); Monocytes # (auto) 0.91 K/uL (0.11-0.59); Monocytes % (auto) 14.7 %; Neutrophils # (auto) 4.03 K/uL (1.4-6.5); Neutrophils % (auto) 65.2 %; Platelet Count 185 K/uL (130-400); RDW Coefficient of Variation 13.3 % (11.5-14.5); RDW Standard Deviation 44.2 fL (36.4-46.3); Red Blood Count 3.68 M/uL (4.2-5.4); White Blood Count 6.19 K/uL (4.8-10.8)
[2019-08-05 08:24] LABS: Albumin Level 2.6 gm/dl (3.4-5.0); BUN Creatinine Ratio 28.3 (10-20); Calcium 8.9 mg/dl (8.5-10.1); Est GFR (African American) 80.6; Est GFR (Non-African American) 69.5; Potassium 3.3 mmol/L (3.5-5.1)
[2019-08-05 08:27] LABS: Albumin Globulin Ratio 0.8 (0.9-2); Bilirubin,Total 0.3 mg/dl (0.2-1); Globulin 3.3 gm/dl (2.5-4.0); Total Protein 5.9 gm/dl (6.4-8.2)
[2019-08-05] MEDS: RIVAROXABAN 20 MG TAB PO SCH (08:59)
[2019-08-05] MEDS: FAMOTIDINE 20 MG TAB PO SCH (09:00)
[2019-08-05] MEDS: CALCIUM 600MG + VIT D 400 IU TAB PO SCH ×2 (09:00→20:52)
[2019-08-05] MEDS: ACETAMINOPHEN 500 MG TAB PO SCH ×2 (09:00→20:52)
[2019-08-05] MEDS: CHOLECALCIFEROL 1,000 UNITS TAB PO SCH (09:00)
[2019-08-05] MEDS ORDERED: METOPROLOL SUCC 50MG EXT REL TAB PO SCH (09:00)
[2019-08-05] MEDS: AMLODIPINE BESYLATE 5 MG TAB PO SCH (09:00)
[2019-08-05] MEDS: FERROUS SULFATE 325 MG TAB PO SCH ×2 (09:01→16:24)
[2019-08-05] MEDS: LISINOPRIL 2.5 MG TAB PO SCH (09:15)
[2019-08-05] MEDS ORDERED: INSULIN ASPART 100 UNITS/ML 3 ML PEN SC SCH (16:00)
[2019-08-05] MEDS ORDERED: DIGOXIN 0.125 MG TAB PO SCH (16:00)
--- NOTE | 2019-08-05 17:25 | Cardiology Consultation ---
Date of Consultation August 05, 2019 Assessment & Plan (1) Atrial fibrillation: (2) Bradycardia: (3) Tricuspid regurgitation: (4) Mitral regurgitation: (5) Cardiomyopathy: ASSESSMENT/PLAN: 1. Atrial fibrillation with bradycardia and pauses: No significant pauses. Longest pause was 3.3 seconds, occurring overnight. She would not likely be symptomatic with this with atrial fibrillation. Consider discontinuing digoxin. For now, primary service has reduced metoprolol succinate, which is another option but given her reduced LV systolic function, she may have more overall benefit with metoprolol and less polypharmacy if discontinuing digoxin. Ultimately, this can be decided upon by her primary clinical program director tomorrow. Recommend digoxin level to ensure that her level is less than 1. Digoxin was held today per records. Continue anticoagulation for stroke risk reduction if no contraindications. No indication for pacemaker at this time. 2. Cardiomyopathy: Mildly reduced LV systolic function but also evidence of right systolic dysfunction. Caution with fluids. She does not appear to be significantly hypervolemic currently and is asymptomatic. 3. Mitral regurgitation: Reported as severe in the past. Follow with Dr. Cavazos. 4. Tricuspid regurgitation: Reported as severe in the past. As per her primary clinical program director, Dr. Cavazos. 5. Hyperglycemia: Per primary service. 6. Disposition: Patient care has been discussed with Dr. Rehman of the primary hospitalist service. Recommendations were discussed with him as noted above. Dr. Cavazos, primary clinical program director, can resume her care tomorrow. Please call with any other questions or concerns. Thank you for allowing me to participate in the care of your patient. Please call for any other questions or concerns. Sincerely, Kyle Mayen M.D. History of Present Illness Reason for Consultation: Bradycardia, atrial fibrillation, pauses Requesting Physician: Dr. Rehman Attending Physician: Shaq Rehman MD History of Present Illness Mrs. Berg is a pleasant 89-year-old female with a history significant for permanent atrial fibrillation, dementia, mitral and tricuspid regurgitation, hypertension, and dyslipidemia. Her primary clinical program director is Dr. Cavazos. She has had the following studies/procedures: 1. Echo 09/04/2018: Mildly reduced LV systolic function. EF 40-45%. Global hypokinesis of the LV. Moderately dilated RV with moderately reduced systolic function. Severe MR. Severe TR. RVSP 50-60. She was admitted on 08/05/2019 for hyperglycemia with glucose level 687 on presentation. While here, she has been on telemetry well and she has been noted to be bradycardic with her atrial fibrillation and has had pauses up to 3.3 seconds at 1:48 a.m.. She has been on digoxin and metoprolol succinate 200 mg daily. Her last digoxin level was on 03/27/2019 and the level was 1. When she presented, her creatinine was mildly increased compared to baseline. She has dementia and therefore her history is likely unreliable. She denies syncope, near-syncope, chest pain, shortness of breath, palpitations, or edema. She denies bleeding. Several times she stated that she is very happy with her care here and then on 1 occurrence, she states that she is unhappy with her care. She states that no one ever comes into the room to evaluate her. She wants to go home. Review of systems: As above. Review of systems otherwise unremarkable or unobtainable due to patient's dementia. Family history: Obtained from records. Type 2 diabetes and hypertension. Social history: Obtained from records due to poor memory. She resides at [facility]. Former smoker. She was alone in her hospital room. Allergies Allergy/AdvReac Type Severity Reaction Status Date / Time erythromycin base Allergy Unknown Unverified 08/04/19 22:45 Home Medications Home Medications Medication Instructions Recorded Confirmed Type Caltrate 600 plus D 1 tab PO BID 05/16/18 08/04/19 History Glucagon Emergency Kit (human) 1 ml IM UD PRN 09/03/18 08/04/19 History Lantus Solostar U-100 Insulin 60 unit SUBCUT DAILY 09/03/18 08/04/19 History amlodipine 5 mg PO DAILY 09/03/18 08/04/19 History sodium chloride [Saline Mist] 2 spray INTRANASAL DAILY PRN 09/03/18 08/04/19 History ferrous sulfate 325 mg PO BID 10/13/18 08/04/19 History acetaminophen 1,000 mg PO BID 02/26/19 08/04/19 History acetaminophen 650 mg PO DAILY MDD 3gm/24hr 02/26/19 08/04/19 History cholecalciferol (vitamin D3) 2,000 unit PO DAILY 02/26/19 08/04/19 History [Vitamin D3] digoxin 125 mcg PO DAILY 02/26/19 08/04/19 History insulin NPH isoph U-100 human 16 unit SUBCUT DAILY 02/26/19 08/04/19 History [Novolin N NPH U-100 Insulin] insulin aspart U-100 [Novolog 0 unit SUBCUT BID 02/26/19 08/04/19 History Flexpen U-100 Insulin] metoprolol succinate 200 mg PO DAILY 02/26/19 08/04/19 History rivaroxaban 20 mg tablet 20 mg PO DAILY #30 tab 05/07/19 08/04/19 Rx lisinopril 2.5 mg tablet 2.5 mg PO DAILY #30 tab 06/10/19 08/04/19 Rx levothyroxine 125 mcg tablet 137 mcg PO DAILY tab 07/05/19 08/04/19 History famotidine 20 mg PO DAILY 08/04/19 08/04/19 History Patient History Medical History Abnormal EKG (Acute) Abscess of bursa, left elbow Abscess, elbow Acute dehydration (Acute) Acute hyperglycemia (Acute) Acute kidney injury (Acute) Acute thoracic back pain (Acute) Altered mental status Altered mental status (Acute) Anemia (Acute) Anemia (Acute) Atrial fibrillation (Chronic) Back pain Cardiomyopathy Cellulitis (Acute) CHF (congestive heart failure) (Acute) Chronic kidney disease with symptom management only, stage 3 (moderate) Cough (Acute) Diabetes (Chronic) Diabetes mellitus type 2 with complications Diarrhea DKA (diabetic ketoacidoses) (Acute) DKA (diabetic ketoacidosis) (Acute) DVT prophylaxis DVT prophylaxis DVT prophylaxis Edema Encounter for pre-operative examination Epistaxis (Acute) Fever (Acute) HTN (hypertension) (Chronic) Hyperkalemia (Acute) Hypertension Hypothermia (Acute) Hypothyroidism Iron deficiency anemia Left ventricular dysfunction Macular degeneration (Chronic) Microcytic anemia (Acute) Mitral regurgitation Nondisplaced fracture of right femur Pubic ramus fracture (Acute) Pulmonary HTN Right-sided heart failure Sepsis Sepsis (Acute) SIRS (systemic inflammatory response syndrome) (Acute) Symptomatic anemia (Acute) Tricuspid regurgitation UTI (urinary tract infection) (Acute) UTI (urinary tract infection) Weakness (Acute) Yeast infection Surgical History Status post hip surgery Status post hysterectomy Family History Other DM type 2 (diabetes mellitus, type 2) Hypertension Social History Preferred Language: Indonesian Communication Ability: Effective Visual Impairment: No Limitations Receiving Team Member Required: No Beliefs That Will Affect Care: None Current Living Situation: [facility] Current Living Situation Comment: resides at [facility] Feels Safe at Home: Yes Smoking Status: Former smoker Second Hand Exposure: No ; Hx Alcohol Use: No Hx Substance Use: No Physical Exam Physical Exam: Gen.: No acute distress. Alert and oriented to self only. HEENT: Anicteric sclera. Neck: No appreciable JVD. No bruits. Normal carotid upstrokes bilaterally. Cardiac: PMI was nondisplaced. No ventricular heave. Irregularly irregular. Normal S1-S2. No audible murmurs, rubs, or gallops. Pulmonary: Bibasilar rales, which improved with cough. Abdomen: Soft, nontender, nondistended, with normoactive bowel sounds. No bruits noted. Extremities: 2+ radial pulses bilaterally. 2+ posterior tibialis pulses bilaterally. 1+ bilateral lower extremity edema. No cyanosis. Psychiatric: Affect appears appropriate. Results & Data Vital Signs (Past 12 Hours) Vital Signs Temp Pulse Pulse Resp BP BP Pulse Ox 08/05/19 16:22 52 L 08/05/19 15:24 36.5 C 55 L 18 126/60 98 08/05/19 15:22 65 08/05/19 11:50 36.3 C L 48 L 18 135/64 98 08/05/19 07:14 46 L 08/05/19 07:00 36.6 C 59 L 18 136/64 97 Intake & Output 08/03/19 08/04/19 08/05/19 08/06/19 06:59 06:59 06:59 06:59 Intake Total 570 / 570 1375 / 1375 Output Total 800 / 800 550 / 550 Balance -230 / -230 825 / 825 Weight 50.5 kg 50.5 kg Laboratory Results Laboratory Results - last 24 hr 08/04/19 08/04/19 08/04/19 20:50 21:00 21:00 WBC 8.56 RBC 4.22 Hgb 13.6 Hct 40.0 MCV 94.8 MCH 32.2 MCHC 34.0 RDW Std Deviation 46.0 RDW Coeff of Chris 13.5 Plt Count 211 MPV 10.0 Immature Gran % (Auto) 1.1 Neut % (Auto) 78.9 Lymph % (Auto) 12.3 Hoke % (Auto) 6.9 Eos % (Auto) 0.6 Baso % (Auto) 0.2 Immature Gran # (Auto) 0.09 H Neut # (Auto) 6.76 H Lymph # (Auto) 1.05 L [place] # (Auto) 0.59 Eos # (Auto) 0.05 Baso # (Auto) 0.02 VBG pH VBG pCO2 VBG pO2 VBG HCO3 VBG O2 Saturation VBG Base Excess Barometric Pressure Sodium 126 L Potassium 4.6 Chloride 93 L Carbon Dioxide 23 Anion Gap 11.0 BUN 26 H Creatinine 1.23 H Est Cr Clr Drug Dosing 24.7 Est GFR ( Amer) 45.0 Est GFR (Non-Af Amer) 38.9 BUN/Creatinine Ratio 21.3 H Glucose 687 H* POC Glucose > 600 H* Calcium 9.4 Total Bilirubin 0.9 AST 48 H ALT 26 Alkaline Phosphatase 145 H Troponin I < 0.015 Total Protein 7.7 Albumin 3.5 Globulin 4.2 H Albumin/Globulin Ratio 0.8 L Beta-Hydroxybutyric Acd 10.09 H Urine Color Urine Appearance Urine pH Ur Specific [place] Urine Protein Urine Glucose (UA) Urine Ketones Urine Blood Urine Nitrite Urine Bilirubin Urine Urobilinogen Ur Leukocyte Esterase Urine RBC Urine WBC Ur Epithelial Cells Urine Bacteria 08/04/19 08/04/19 08/04/19 21:25 21:37 22:12 WBC RBC Hgb Hct MCV MCH MCHC RDW Std Deviation RDW Coeff of Chris Plt Count MPV Immature Gran % (Auto) Neut % (Auto) Lymph % (Auto) H[place] % (Auto) Eos % (Auto) Baso % (Auto) Immature Gran # (Auto) Neut # (Auto) Lymph # (Auto) [place] # (Auto) Eos # (Auto) Baso # (Auto) VBG pH 7.47 H VBG pCO2 33 L VBG pO2 55 VBG HCO3 24 VBG O2 Saturation 87.5 VBG Base Excess 0.4 Barometric Pressure 723.8 Sodium Potassium Chloride Carbon Dioxide Anion Gap BUN Creatinine Est Cr Clr Drug Dosing Est GFR ( Amer) Est GFR (Non-Af Amer) BUN/Creatinine Ratio Glucose POC Glucose > 600 H* Calcium Total Bilirubin AST ALT Alkaline Phosphatase Troponin I Total Protein Albumin Globulin Albumin/Globulin Ratio Beta-Hydroxybutyric Acd Urine Color Colorless Urine Appearance Cloudy A Urine pH 6.5 Ur Specific [place] 1.015 Urine Protein 1+ H Urine Glucose (UA) 3+ H Urine Ketones Trace H Urine Blood Trace H Urine Nitrite Negative Urine Bilirubin Negative Urine Urobilinogen Negative Ur Leukocyte Esterase 1+ H Urine RBC 0-4 Urine WBC >30 H Ur Epithelial Cells 0-5 Urine Bacteria Negative 08/04/19 08/04/19 08/05/19 22:55 23:40 01:43 WBC RBC Hgb Hct MCV MCH MCHC RDW Std Deviation RDW Coeff of Chris Plt Count MPV Immature Gran % (Auto) Neut % (Auto) Lymph % (Auto) [place] % (Auto) Eos % (Auto) Baso % (Auto) Immature Gran # (Auto) Neut # (Auto) Lymph # (Auto) [place] # (Auto) Eos # (Auto) Baso # (Auto) VBG pH VBG pCO2 VBG pO2 VBG HCO3 VBG O2 Saturation VBG Base Excess Barometric Pressure Sodium Potassium Chloride Carbon Dioxide Anion Gap BUN Creatinine Est Cr Clr Drug Dosing Est GFR ( Amer) Est GFR (Non-Af Amer) BUN/Creatinine Ratio Glucose POC Glucose 460 H* 386 H* 410 H* Calcium Total Bilirubin AST ALT Alkaline Phosphatase Troponin I Total Protein Albumin Globulin Albumin/Globulin Ratio Beta-Hydroxybutyric Acd Urine Color Urine Appearance Urine pH Ur Specific [place] Urine Protein Urine Glucose (UA) Urine Ketones Urine Blood Urine Nitrite Urine Bilirubin Urine Urobilinogen Ur Leukocyte Esterase Urine RBC Urine WBC Ur Epithelial Cells Urine Bacteria 08/05/19 08/05/19 08/05/19 06:07 07:34 07:39 WBC 6.19 RBC 3.68 L Hgb 11.6 L Hct 33.9 L MCV 92.1 MCH 31.5 MCHC 34.2 RDW Std Deviation 44.2 RDW Coeff of Chris 13.3 Plt Count 185 MPV 9.4 Immature Gran % (Auto) 0.6 Neut % (Auto) 65.2 Lymph % (Auto) 16.3 [place] % (Auto) 14.7 Eos % (Auto) 2.7 Baso % (Auto) 0.5 Immature Gran # (Auto) 0.04 H Neut # (Auto) 4.03 Lymph # (Auto) 1.01 L [place] # (Auto) 0.91 H Eos # (Auto) 0.17 Baso # (Auto) 0.03 VBG pH VBG pCO2 VBG pO2 VBG HCO3 VBG O2 Saturation VBG Base Excess Barometric Pressure Sodium Potassium Chloride Carbon Dioxide Anion Gap BUN Creatinine Est Cr Clr Drug Dosing Est GFR ( Amer) Est GFR (Non-Af Amer) BUN/Creatinine Ratio Glucose POC Glucose 138 H 85 Calcium Total Bilirubin AST ALT Alkaline Phosphatase Troponin I Total Protein Albumin Globulin Albumin/Globulin Ratio Beta-Hydroxybutyric Acd Urine Color Urine Appearance Urine pH Ur Specific [place] Urine Protein Urine Glucose (UA) Urine Ketones Urine Blood Urine Nitrite Urine Bilirubin Urine Urobilinogen Ur Leukocyte Esterase Urine RBC Urine WBC Ur Epithelial Cells Urine Bacteria 08/05/19 08/05/19 08/05/19 07:39 10:51 11:40 WBC RBC Hgb Hct MCV MCH MCHC RDW Std Deviation RDW Coeff of Chris Plt Count MPV Immature Gran % (Auto) Neut % (Auto) Lymph % (Auto) [place] % (Auto) Eos % (Auto) Baso % (Auto) Immature Gran # (Auto) Neut # (Auto) Lymph # (Auto) [place] # (Auto) Eos # (Auto) Baso # (Auto) VBG pH VBG pCO2 VBG pO2 VBG HCO3 VBG O2 Saturation VBG Base Excess Barometric Pressure Sodium 137 D Potassium 3.3 L D Chloride 105 Carbon Dioxide 26 Anion Gap 6.0 BUN 22 H Creatinine 0.76 D Est Cr Clr Drug Dosing 40.0 Est GFR ( Amer) 80.6 Est GFR (Non-Af Amer) 69.5 BUN/Creatinine Ratio 28.3 H Glucose 82 POC Glucose 138 H 95 Calcium 8.9 Total Bilirubin 0.3 D AST 33 ALT 18 Alkaline Phosphatase 88 Troponin I Total Protein 5.9 L D Albumin 2.6 L Globulin 3.3 Albumin/Globulin Ratio 0.8 L Beta-Hydroxybutyric Acd Urine Color Urine Appearance Urine pH Ur Specific [place] Urine Protein Urine Glucose (UA) Urine Ketones Urine Blood Urine Nitrite Urine Bilirubin Urine Urobilinogen Ur Leukocyte Esterase Urine RBC Urine WBC Ur Epithelial Cells Urine Bacteria 08/05/19 08/05/19 08/05/19 13:40 13:43 14:02 WBC RBC Hgb Hct MCV MCH MCHC RDW Std Deviation RDW Coeff of Chris Plt Count MPV Immature Gran % (Auto) Neut % (Auto) Lymph % (Auto) [place]oke % (Auto) Eos % (Auto) Baso % (Auto) Immature Gran # (Auto) Neut # (Auto) Lymph # (Auto) [place] # (Auto) Eos # (Auto) Baso # (Auto) VBG pH VBG pCO2 VBG pO2 VBG HCO3 VBG O2 Saturation VBG Base Excess Barometric Pressure Sodium Potassium Chloride Carbon Dioxide Anion Gap BUN Creatinine Est Cr Clr Drug Dosing Est GFR ( Amer) Est GFR (Non-Af Amer) BUN/Creatinine Ratio Glucose POC Glucose 63 L* 65 L* 82 Calcium Total Bilirubin AST ALT Alkaline Phosphatase Troponin I Total Protein Albumin Globulin Albumin/Globulin Ratio Beta-Hydroxybutyric Acd Urine Color Urine Appearance Urine pH Ur Specific [place] Urine Protein Urine Glucose (UA) Urine Ketones Urine Blood Urine Nitrite Urine Bilirubin Urine Urobilinogen Ur Leukocyte Esterase Urine RBC Urine WBC Ur Epithelial Cells Urine Bacteria 08/05/19 16:40 WBC RBC Hgb Hct MCV MCH MCHC RDW Std Deviation RDW Coeff of Chris Plt Count MPV Immature Gran % (Auto) Neut % (Auto) Lymph % (Auto) [place] % (Auto) Eos % (Auto) Baso % (Auto) Immature Gran # (Auto) Neut # (Auto) Lymph # (Auto) [place] # (Auto) Eos # (Auto) Baso # (Auto) VBG pH VBG pCO2 VBG pO2 VBG HCO3 VBG O2 Saturation VBG Base Excess Barometric Pressure Sodium Potassium Chloride Carbon Dioxide Anion Gap BUN Creatinine Est Cr Clr Drug Dosing Est GFR ( Amer) Est GFR (Non-Af Amer) BUN/Creatinine Ratio Glucose POC Glucose 135 H Calcium Total Bilirubin AST ALT Alkaline Phosphatase Troponin I Total Protein Albumin Globulin Albumin/Globulin Ratio Beta-Hydroxybutyric Acd Urine Color Urine Appearance Urine pH Ur Specific [place] Urine Protein Urine Glucose (UA) Urine Ketones Urine Blood Urine Nitrite Urine Bilirubin Urine Urobilinogen Ur Leukocyte Esterase Urine RBC Urine WBC Ur Epithelial Cells Urine Bacteria Diagnostic Findings Telemetry personally reviewed: Atrial fibrillation with pauses up to 3.3 seconds as noted above. Echocardiogram report reviewed as noted above. ECG personally reviewed: ECG 08/04/2019: AFib [address]/T-wave abnormality. Septal infarct. Chest x-ray 08/04/2019: No acute process per Radiology. Medications Administered Current Inpatient Medications Acetaminophen (Tylenol) 1,000 mg PO BID [facility] Stop: 09/04/19 08:59 Last Admin: 08/05/19 09:00 Dose: 1,000 mg Documented by: Amlodipine Besylate (Norvasc) 5 mg PO DAILY SAVANNAH Stop: 09/04/19 08:59 Last Admin: 08/05/19 09:00 Dose: 5 mg Documented by: Dextrose (Dextrose 50%) 25 - 50 ml IV UD PRN; Protocol PRN Reason: Hypoglycemia Protocol Stop: 09/04/19 01:59 Digoxin (Lanoxin) 0.125 mg PO DAILY@1600 [facility] Stop: 09/04/19 15:59 Last Admin: 08/05/19 16:22 Dose: Not Given Documented by: Famotidine (Pepcid) 20 mg PO DAILY SAVANNAH Stop: 09/04/19 08:59 Last Admin: 08/05/19 09:00 Dose: 20 mg Documented by: Ferrous Sulfate (Feosol) 325 mg PO BIDM SAVANNAH Stop: 09/04/19 07:59 Last Admin: 08/05/19 16:24 Dose: 325 mg Documented by: Glucagon (Glucagen) 1 mg IM UD PRN; Protocol PRN Reason: Hypoglycemia Protocol Stop: 09/04/19 01:59 Glucose (Glucose 40%) 15 - 30 gm PO UD PRN; Protocol PRN Reason: Hypoglycemia Protocol Stop: 09/04/19 01:59 Last Admin: 08/05/19 13:45 Dose: 15 gm Documented by: Glucose (Dex4 Glucose) 4 - 8 tabs PO UD PRN; Protocol PRN Reason: Hypoglycemia Protocol Stop: 09/04/19 01:59 Ceftriaxone Sodium 1,000 mg/ (Dextrose) 50 mls @ 100 mls/hr IV Q24H SAVANNAH; Prot ocol Stop: 08/10/19 21:59 Insulin Aspart (Novolog Flexpen) 0 units SC ACHS [facility] Stop: 09/04/19 16:29 Last Admin: 08/05/19 16:58 Dose: 4 units Documented by: Insulin Glargine (Lantus Solostar Pen) 30 units SQ QAM [facility] Stop: 09/05/19 08:59 Levothyroxine Sodium (Levothyroxine Sodium) 137 mcg PO DAILYBB SAVANNAH Stop: 09/04/19 06:29 Last Admin: 08/05/19 06:10 Dose: 137 mcg Documented by: Lisinopril (Zestril) 2.5 mg PO DAILY SAVANNAH Stop: 09/04/19 08:59 Last Admin: 08/05/19 09:15 Dose: 2.5 mg Documented by: Metoprolol Succinate (Toprol Xl) 100 mg PO DAILY [facility] Stop: 09/05/19 08:59 Miscellaneous (Carbohydrates For Hypoglycemia) 15 - 30 gm PO UD PRN PRN Reason: Hypoglycemia Treatment Stop: 09/04/19 01:59 Last Admin: 08/05/19 13:45 Dose: 15 gm Documented by: Multivitamins/Minerals (Caltrate Plus) 1 tab PO BID [facility] Stop: 09/04/19 08:59 Last Admin: 08/05/19 09:00 Dose: 1 tab Documented by: Rivaroxaban (Xarelto) 20 mg PO DAILY [facility] Stop: 09/04/19 08:59 Last Admin: 08/05/19 08:59 Dose: 20 mg Documented by: Sodium Chloride ([place] Nasal) 2 sprays NA DAILY PRN PRN Reason: Other Stop: 09/04/19 01:38 Vitamin D (Vitamin D3) 2,000 units PO DAILY [facility] Stop: 09/04/19 08:59 Last Admin: 08/05/19 09:00 Dose: 2,000 units Documented by: PG Care Time/CCT Total # of Minutes Spent Total Time Spent with Patient: Total time spent is greater than 50% in coordination of care (as documented) at patient's floor/unit and/or counseling patient: (1) Atrial fibrillation Atrial fibrillation type: chronic Qualified Code(s): I48.2 - Chronic atrial fibrillation (2) Tricuspid regurgitation Cardiac valve disease etiology: nonrheumatic Qualified Code(s): I36.1 - Nonrheumatic tricuspid (valve) insufficiency (3) Mitral regurgitation Cardiac valve disease etiology: etiology unspecified Qualified Code(s): I34.0 - Nonrheumatic mitral (valve) insufficiency
--- NOTE | 2019-08-05 19:31 | Hospitalist Progress Note ---
Date of Service August 05, 2019 Assessment & Plan (1) Atrial fibrillation: Significant bradycardia on monitor. Patient denies any symptoms related to this however unclear how reliable her history is. Digoxin held in the afternoon due to ongoing bradycardia. Cardiology consulted (managed by Dr. Cavazos as an outpatient) - appreciate review. Digoxin level for the morning. (2) UTI (urinary tract infection): Unclear if truly represents true infection. WBC unremarkable. No CVA tenderness. (3) Hyperglycemia: Suspect fluctuations due to change in her diet. Likely will continue to be difficult to control at [facility]. She is currently adamant that she wishes to get back here however. (4) Pulmonary HTN: (5) Tricuspid regurgitation: Severe on echo in August 2018 (6) Mitral regurgitation: Severe on echo August 2018. (7) Cardiomyopathy: Global 40 to 45% hypokinesis on echo in August 2018. No current heart failure exacerbation. No outpatient diuretics noted. (8) Chronic kidney disease with symptom management only, stage 3 (moderate): Mildly elevated on admission likely due to dehydration from hyperglycemia. Now back to normal. (9) Iron deficiency anemia: Continue ferrous sulfate twice daily (10) Anemia: Mild normocytic after rehydration. Repeat CBC in a.m. (11) Diabetes: Significant hypoglycemia after resuming her usual insulin dosing. Likely related to difference in diet. Will give any 10 units Lantus tonight. Resume 30 units Lantus in a.m. Continue insulin sliding scale at this time. (12) HTN (hypertension): Now creatinine improved we will restart lisinopril. Continue amlodipine and metoprolol. (13) Hypothyroidism: TSH 4.06 at the beginning of this month. Continue levothyroxine home dose. (14) DVT prophylaxis: Continue Xarelto (15) Discharge planning issues: Patient lives [facility]. Will get PT OT eval's prior to discharge. Aim for discharge tomorrow as long as glucose measurements stable. Subjective Patient seen in afternoon. She reports being very disappointed that she has not been discharged already. It is boring in hospital with no one to talk to and she wants to get back to [facility]. Limited understanding of why she is here and her main concern is her bowel movements which she reports have now resolved. No nausea, vomiting or abdominal pain. She is unable to tell me recent history of her glucose measurements but just notes it has been low this morning at 88 so she should be able to go home. With regards to the bradycardia on monitor in setting of atrial fibrillation she denies any chest pain, shortness of breath or dizziness. Review of Systems Review of Systems: Unobtainable due to cognitive status Physical Exam Constitutional: well developed and + malnourished; no acute distress Eyes: + anicteric sclerae; pupils not irregular ENMT: external ear and nose normal, oropharynx normal Neck: trachea midline Respiratory: normal respiratory effort, lungs clear to auscultation Cardiovascular: Rate/Rhythm: + irregularly irregular Heart Sounds: no murmur Vessels: no JVD Extremities: normal capillary refill; no pedal edema Gastrointestinal (Abdomen): normal bowel sounds, soft, nontender, no hepatos plenomegaly Musculoskeletal: no cyanosis or clubbing, extremities motor strength 5/5 Skin: no rashes, warm and dry Neurologic: moves all extremities and awake; no focal motor deficits and not confused Motor/Sensory: no sensory deficit Results & Data Vital Signs (Past 12 Hours) Vital Signs Temp Pulse Pulse Resp BP Pulse Ox 08/05/19 18:56 92 08/05/19 16:22 52 L 08/05/19 15:24 97.7 F 55 L 18 126/60 98 08/05/19 15:22 65 08/05/19 11:50 97.3 F L 48 L 18 135/64 98 PG Care Time/CCT Total # of Minutes Spent Total Time Spent with Patient: Total time spent is greater than 50% in coordination of care (as documented) at patient's floor/unit and/or counseling patient: (1) UTI (urinary tract infection) Hematuria presence: without hematuria Urinary tract infection type: site unspecified Qualified Code(s): N39.0 - Urinary tract infection, site not specif ied (2) Diabetes Diabetes mellitus complication status: with unspecified complications Diabetes mellitus snf insulin use: with snf use Diabetes mellitus type: type 2 Qualified Code(s): E11.8 - Type 2 diabetes mellitus with unspecified complications; Z79.4 - jail (current) use of insulin (3) Anemia Anemia type: unspecified type Qualified Code(s): D64.9 - Anemia, unspecified (4) Tricuspid regurgitation Cardiac valve disease etiology: nonrheumatic Qualified Code(s): I36.1 - Nonrheumatic tricuspid (valve) insufficiency (5) Atrial fibrillation Atrial fibrillation type: chronic Qualified Code(s): I48.2 - Chronic atrial fibrillation (6) Hypothyroidism Hypothyroidism type: acquired Qualified Code(s): E03.9 - Hypothyroidism, unspecified (7) Mitral regurgitation Cardiac valve disease etiology: etiology unspecified Qualified Code(s): I34.0 - Nonrheumatic mitral (valve) insufficiency (8) Iron deficiency anemia Iron deficiency anemia type: unspecified iron deficiency Qualified Code(s): D50.9 - Iron deficiency anemia, unspecified (9) HTN (hypertension) Hypertension type: essential hypertension Qualified Code(s): I10 - Essential (primary) hypertension (10) Cardiomyopathy Cardiomyopathy type: unspecified Qualified Code(s): I42.9 - Cardiomyopathy, unspecified
[2019-08-05] MEDS ORDERED: INSULIN GLARGINE SOLOSTAR 100 UNITS/ML 3 ML PEN SC ONE (21:11)
[2019-08-05] MEDS ORDERED: cefTRIAXone SODIUM 1,000 MG in DEXTROSE 5% 50 ML IV SCH (22:00)
[2019-08-06] MEDS: LEVOTHYROXINE SODIUM 137 MCG TABLET PO SCH (05:36)
[2019-08-06 07:51] LABS: Basophils # (auto) 0.02 K/uL (0-0.2); Basophils % (auto) 0.3 %; Eosinophils # (auto) 0.02 K/uL (0-0.5); Eosinophils % (auto) 0.3 %; Hematocrit (blood only) 37.8 % (37-47); Hemoglobin 12.7 g/dL (12.0-16.0); Immature Granulocytes # (auto) 0.05 K/uL (0.00-0.02); Immature Granulocytes % (auto) 0.6 %; Lymphocytes # (auto) 0.75 K/uL (1.2-3.4); Lymphocytes % (auto) 9.4 %; Mean Corpuscular Hemoglobin 31.8 pg (25-34); Mean Corpuscular Hgb Conc 33.6 g/dL (32-36); Mean Corpuscular Volume 94.5 fL (80-100); Mean Platelet Volume 9.7 fL (7.4-10.4); Monocytes % (auto) 6.3 %; Neutrophils # (auto) 6.65 K/uL (1.4-6.5); Neutrophils % (auto) 83.1 %; Platelet Count 189 K/uL (130-400); RDW Coefficient of Variation 13.7 % (11.5-14.5); RDW Standard Deviation 46.7 fL (36.4-46.3); White Blood Count 7.99 K/uL (4.8-10.8)
[2019-08-06] MEDS: FAMOTIDINE 20 MG TAB PO SCH (08:12)
[2019-08-06] MEDS: AMLODIPINE BESYLATE 5 MG TAB PO SCH (08:12)
[2019-08-06] MEDS: LISINOPRIL 2.5 MG TAB PO SCH (08:12)
[2019-08-06] MEDS: RIVAROXABAN 20 MG TAB PO SCH (08:12)
[2019-08-06] MEDS: ACETAMINOPHEN 500 MG TAB PO SCH (08:13)
[2019-08-06] MEDS: CALCIUM 600MG + VIT D 400 IU TAB PO SCH (08:13)
[2019-08-06] MEDS: CHOLECALCIFEROL 1,000 UNITS TAB PO SCH (08:13)
[2019-08-06] MEDS: FERROUS SULFATE 325 MG TAB PO SCH (08:14)
[2019-08-06] MEDS: INSULIN ASPART 100 UNITS/ML 3 ML PEN SC SCH ×2 (08:20→11:57)
[2019-08-06 08:22] LABS: BUN Creatinine Ratio 25.3 (10-20); Calcium 9.3 mg/dl (8.5-10.1); Creatinine Clr Calc Pharmacy 40.1 ml/min; Est GFR (African American) 81.9; Est GFR (Non-African American) 70.7; Potassium 3.6 mmol/L (3.5-5.1)
[2019-08-06] MEDS ORDERED: INSULIN GLARGINE SOLOSTAR 100 UNITS/ML 3 ML PEN SQ SCH ×2 (09:00)
[2019-08-06] MEDS ORDERED: METOPROLOL SUCC 50MG EXT REL TAB PO SCH ×2 (09:00)
--- NOTE | 2019-08-06 13:05 | Cardiology Progress Note ---
Date of Service August 06, 2019 Assessment & Plan (1) Atrial fibrillation: (2) Bradycardia: (3) Tricuspid regurgitation: (4) Mitral regurgitation: (5) Cardiomyopathy: ASSESSMENT/PLAN: The patient is stable from a cardiac perspective. Her ventricular response is appropriate on metoprolol succinate alone. Digoxin has been held. No further pauses have been identified on the monitor. Plan 1. Continue current medications. 2. Agree with discontinuation of digoxin 3. Agree with continuation of Xarelto 4. Will continue to follow. Subjective The patient is resting fully bed without complaints of chest pain, dyspnea, syncope, presyncope, or palpitations. Physical Exam Physical Exam: In general this is a well-developed well-nourished elderly white female no acute distress. HEENT exam is negative. Neck is supple with full carotid upstrokes. There are no carotid bruits. No jugular venous distension. There is no thyromegaly. Cardiovascular exam reveals an irregularly irregular rhythm with distant heart sounds. A 1/6 basal systolic ejection murmur is noted. No S3. Lungs are clear without rales, rhonchi, or wheezes. Abdomen is soft and nontender without bruits. Extremities reveal intact radial artery and posterior tibial pulses bilaterally. There is no peripheral edema. 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 No pauses identified. PG Care Time/CCT Total # of Minutes Spent Total Time Spent with Patient: Total time spent is greater than 50% in coordination of care (as documented) at patient's floor/unit and/or counseling patient: (1) Tricuspid regurgitation Cardiac valve disease etiology: nonrheumatic Qualified Code(s): I36.1 - Nonrheumatic tricuspid (valve) insufficiency (2) Atrial fibrillation Atrial fibrillation type: chronic Qualified Code(s): I48.2 - Chronic atrial fibrillation (3) Mitral regurgitation Cardiac valve disease etiology: etiology unspecified Qualified Code(s): I34.0 - Nonrheumatic mitral (valve) insufficiency (4) Cardiomyopathy Cardiomyopathy type: unspecified Qualified Code(s): I42.9 - Cardiomyopathy, unspecified
== END 2019-08-06 17:48 | disposition home or self-care (01) | DRG 638 ==
LOC: ED 20:41 → SUATTDRO 08-05 00:39 → 2W 08-05 00:39

== ENCOUNTER 2019-10-19 15:10 | Inpatient (IN) ==
[2019-10-19] MEDS ORDERED: SODIUM CHLORIDE 0.9% 500 ML IV ONE (15:24)
--- NOTE | 2019-10-19 16:03 | XRay Report ---
XR chest 1V portable CLINICAL HISTORY: 89 years-old Female presenting with SEPSIS. TECHNIQUE: Portable upright AP view of the chest was obtained. COMPARISON: 08/04/2019. FINDINGS: Atherosclerosis of the aortic arch. Cardiac silhouette enlarged. Pulmonary vascular prominence and in terstitial prominence to a mild degree. There is background significant heterogeneity of lung parench yma. Mildly low lung volumes. Bilateral small pleural effusions. Added density at the lung bases. Deg enerative changes of the thoracic spine. Upper abdomen normal. IMPRESSION: 1. Background emphysema with superimposed volume overload and congestive change in the setting of ca rdiomegaly. 2. Small bilateral pleural effusions and bibasilar atelectasis. Pneumonia is not favored. Aspiration may appears similarly. ACT 112: Negative or not required by law. Electronically signed by: Jose Haq M.D. 10/19/2019 4:02 PM
[2019-10-19 16:05] LABS: Basophils # (auto) 0.01 K/uL (0-0.2); Basophils % (auto) 0.1 %; Eosinophils # (auto) 0.14 K/uL (0-0.5); Eosinophils % (auto) 1.8 %; Hematocrit (blood only) 32.7 % (37-47); Immature Granulocytes # (auto) 0.04 K/uL (0.00-0.02); Immature Granulocytes % (auto) 0.5 %; Lymphocytes # (auto) 0.82 K/uL (1.2-3.4); Lymphocytes % (auto) 10.3 %; Mean Corpuscular Hemoglobin 30.9 pg (25-34); Mean Corpuscular Hgb Conc 33.6 g/dL (32-36); Mean Corpuscular Volume 91.9 fL (80-100); Mean Platelet Volume 11.3 fL (7.4-10.4); Monocytes # (auto) 0.57 K/uL (0.11-0.59); Monocytes % (auto) 7.2 %; Neutrophils # (auto) 6.39 K/uL (1.4-6.5); Neutrophils % (auto) 80.1 %; Platelet Count 113 K/uL (130-400); RDW Coefficient of Variation 15.4 % (11.5-14.5); RDW Standard Deviation 50.6 fL (36.4-46.3); Red Blood Count 3.56 M/uL (4.2-5.4); White Blood Count 7.97 K/uL (4.8-10.8)
--- NOTE | 2019-10-19 16:07 | Electrocardiogram Report ---
Test Reason : Blood Pressure : / mmHG Vent. Rate : 054 BPM Atrial Rate : 027 BPM P-R Int : 000 ms QRS Dur : 084 ms QT Int : 462 ms P-R-T Axes : 000 -29 -82 degrees QTc Int : 438 ms Atrial fibrillation with slow ventricular response Low voltage QRS Borderline Criteria for Old Inferior infarct Old Anterior infarct (cited on or before 04-AUG-2019) Abnormal ECG When compared with ECG of 19-SEP-2019 17:25, HR has decreased by 19 bpm Borderline Criteria for Inferior infarct now present Otherwise no significant change Confirmed by Kristofer Cheng ([id number]) on 10/19/2019 4:06:56 PM Referred By: [facility] Confirmed By:Kristofer Cheng
--- NOTE | 2019-10-19 16:20 | CT Scan Report ---
CT head/brain wo con CLINICAL HISTORY: 89 years-old Female presenting with confusion. TECHNIQUE: Multidetector CT imaging of the head was performed without the use of intravenous contrast . IV contrast: None. One or more dose lowering techniques were used consistent with the principles of ALARA (as low as reasonably achievable), including automatic exposure control, mA or kV adjustment t o individual patient size, and/or use of iterative reconstruction. COMPARISON: 09/19/2019. CT DOSE (mGy.cm): The estimated cumulative dose is 537.48 mGy.cm. 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 Proportional ventricular and sulcal prominence, likely age-related parenchymal volume loss. No hemorr lennox. Scattered dural calcification noted. Periventricular and subcortical white matter hypoattenuati on, nonspecific but likely indicative of chronic small vessel ischemic change. No acute territorial i nfarct. No mass effect or midline shift. No extra-axial fluid collection. Stable calcified extra-axia l subcentimeter focus along the left frontal convexity near the vertex. Paranasal sinuses and mastoid air cells clear. Calvarium intact. Intracranial atherosclerosis noted. IMPRESSION: 1. Chronic small vessel ischemic change. No acute intracranial abnormality. ACT 112: Negative or not required by law. Electronically signed by: Jose Haq M.D. 10/19/2019 4:18 PM
--- NOTE | 2019-10-19 16:35 | Emergency Department Note ---
Entered by Ben Norton acting as a scribe for Sonny Smith MD History of Present Illness General Chief complaint: Illness Stated complaint: CHANGE IN MENTAL STATUS Time Seen by Provider: 10/19/19 15:18 Source: patient and EMS Limitations: other (mental status) History of Present Illness Location: genitals Pain Consistency: + other (no pain) Current Pain Intensity: 0 Quality: + other (dark urine) Associated symptoms: + loss of appetite and + other (low urine output, possible hallucinations, dark urine) The patient is a 89 year old female who presents to the Emergency Room with complaints of low urine output. EMS states the patient just finished an 8 day course of Macrobid for a UTI. EMS states the patient has been having dark urine and very low urine output. EMS states the patient has not been eating much. EMS states the staff of the alf reported the patient was wandering down the halls and talking to people that were not there. The patient states nothing is bothering her right now. She denies having abdominal pain and pain with urination. HPI is limited secondary to patient's mental status. Home Medications Home Medications Medication Instructions Recorded Confirmed Type Caltrate 600 plus D 1 tab PO BID 05/16/18 10/19/19 History Glucagon Emergency Kit (human) 1 ml IM UD PRN 09/03/18 10/19/19 History Lantus Solostar U-100 Insulin 25 unit SUBCUT BID 09/03/18 10/19/19 History amlodipine 5 mg PO QAM 09/03/18 10/19/19 History sodium chloride [Saline Mist] 2 spray INTRANASAL DAILY PRN 09/03/18 10/19/19 History ferrous sulfate 325 mg PO BID 10/13/18 10/19/19 History Novolin N NPH U-100 Insulin 16 unit SUBCUT QAM 02/26/19 10/19/19 History acetaminophen 1,000 mg PO BID 02/26/19 10/19/19 History cholecalciferol (vitamin D3) 2,000 unit PO QAM 02/26/19 10/19/19 History [Vitamin D3] insulin aspart U-100 [Novolog 0 unit SUBCUT BID 02/26/19 10/19/19 History Flexpen U-100 Insulin] metoprolol succinate 200 mg PO QAM 02/26/19 10/19/19 History levothyroxine 125 mcg tablet 137 mcg PO QAM tab 07/05/19 10/19/19 History famotidine 20 mg PO QAM 08/04/19 10/19/19 History Xarelto 20 mg PO DAILY@1600 09/19/19 10/19/19 History lisinopril 2.5 mg PO QAM 09/19/19 10/19/19 History doxycycline hyclate 100 mg tablet 100 mg PO bid 14 Days #28 tab 10/16/19 10/19/19 Rx nitrofurantoin 100 mg PO BID 10/16/19 10/19/19 History monohydrate/macrocrystals 100 mg capsule Allergies Allergy/AdvReac Type Severity Reaction Status Date / Time erythromycin base Allergy Unknown Unverified 10/19/19 16:14 Past Med/Surg History Medical History Abnormal EKG (Acute) Abscess of bursa, left elbow Abscess, elbow Acute dehydration (Acute) Acute hyperglycemia (Acute) Acute kidney injury (Acute) Acute thoracic back pain (Acute) Altered mental status Altered mental status (Acute) Anemia Anemia (Acute) Atrial fibrillation (Chronic) Back pain Cardiomyopathy Cellulitis (Acute) CHF (congestive heart failure) (Acute) Chronic kidney disease with symptom management only, stage 3 (moderate) Cough (Acute) Diabetes (Chronic) Diabetes mellitus type 2 with complications Diarrhea DKA (diabetic ketoacidoses) (Acute) DKA (diabetic ketoacidosis) (Acute) DVT prophylaxis DVT prophylaxis DVT prophylaxis Edema Encounter for pre-operative examination Epistaxis (Acute) Fever (Acute) HTN (hypertension) (Chronic) Hyperkalemia (Acute) Hypertension Hypothermia (Acute) Hypothyroidism Iron deficiency anemia Left ventricular dysfunction Macular degeneration (Chronic) Microcytic anemia (Acute) Mitral regurgitation Nondisplaced fracture of right femur Pubic ramus fracture (Acute) Pulmonary HTN Right-sided heart failure Sepsis Sepsis (Acute) SIRS (systemic inflammatory response syndrome) (Acute) Symptomatic anemia (Acute) Tricuspid regurgitation UTI (urinary tract infection) (Acute) UTI (urinary tract infection) Weakness (Acute) Yeast infection Surgical History Status post hip surgery Status post hysterectomy Family History Other DM type 2 (diabetes mellitus, type 2) Hypertension Social History Preferred Language: [place] Communication Ability: Effective Visual Impairment: No Limitations Technical Associate Required: No Beliefs That Will Affect Care: None Current Living Situation: Alf Current Living Situation Comment: resides at [facility] Feels Safe at Home: Yes Smoking Status: Former smoker Second Hand Exposure: No ; Hx Alcohol Use: No Hx Substance Use: No Review of Systems Other (ROS is limited due to mental status) Physical Exam Vital Signs Vital Signs - 24 hr 10/19/19 15:37 10/19/19 16:00 10/19/19 16:30 Temperature Temperature Source Oral Pulse Rate 60 54 L 49 L Pulse Rate [Apical] Pulse Rate from SpO2 Sensor 55 L 55 L Pulse Rhythm [Apical] Respiratory Rate 16 16 14 Respiratory Effort / Characteristics Respiratory Depth Respiratory Pattern Blood Pressure 106/62 115/59 L 105/53 L Blood Pressure [Left Arm] Blood Pressure Mean 76 81 64 Blood Pressure Mean [Left Arm] Pulse Oximetry 95 96 98 Oxygen Delivery Method Room Air Room Air Room Air Sepsis New/Unexplained Change in Mental Status Yes Sepsis Action Taken by Nursing Physician Notified 10/19/19 17:00 10/19/19 17:15 10/19/19 17:16 Temperature Temperature Source Pulse Rate 56 L 48 L Pulse Rate [Apical] 54 L Pulse Rate from SpO2 Sensor 47 L Pulse Rhythm [Apical] Irregular Respiratory Rate 12 18 13 Respiratory Effort / Characteristics Non-Labored Spontaneous Respiratory Depth Normal Respiratory Pattern Regular Blood Pressure 95/73 L Blood Pressure [Left Arm] 95/73 L Blood Pressure Mean 76 Blood Pressure Mean [Left Arm] 80 Pulse Oximetry 97 99 Oxygen Delivery Method Room Air Room Air Sepsis New/Unexplained Change in Mental Status Sepsis Action Taken by Nursing 10/19/19 18:00 10/19/19 18:15 Temperature 34.9 C L Temperature Source Rectal Pulse Rate Pulse Rate [Apical] 53 L Pulse Rate from SpO2 Sensor Pulse Rhythm [Apical] Irregular Respiratory Rate 16 Respiratory Effort / Characteristics Respiratory Depth Respiratory Pattern Blood Pressure Blood Pressure [Left Arm] 105/63 Blood Pressure Mean Blood Pressure Mean [Left Arm] 77 Pulse Oximetry 98 Oxygen Delivery Method Room Air Sepsis New/Unexplained Change in Mental Status Sepsis Action Taken by Nursing GENERAL: Patient is in no acute distress. HEENT: No acute trauma, normocephalic atraumatic, mucous membranes moist, no nasal congestion, no scleral icterus. NECK: No stridor, no adenopathy, no meningismus, trachea is midline. LUNGS: Few scattered crackles. No wheezing. Equal breath sounds. No respiratory distress. HEART: 2/6 systolic murmur. Irregular rhythm. Regular rate. ABDOMEN: Soft, nontender, bowel sounds positive, no hernias, no peritonitis. EXTREMITIES: No cyanosis, full range of motion of all the joints without pain or difficulty, no signs for acute trauma. Moderate edema to both lower extremities with bilateral skin erythema without significant warmth. Bilateral lower extremity wraps present. NEUROLOGIC: Awake and alert, no acute motor or sensory deficits, no focal weakness. SKIN: No rash, no jaundice, no diaphoresis. Course Course 151: The patient was evaluated in room B7, and a complete history and physical examination were performed. 1725: I reevaluated the patient. I updated the family. I recommended admission for IV antibiotics. The patient and the family were agreeable to admission. The family confirmed the patient is DNR. I discussed the patient's case with Dr. Rehman - [facility]. He will evaluate the patient for further management. Administered Medications Discontinued Medications Sodium Chloride (Nss) 500 mls @ 999 mls/hr IV .Q31M ONE Stop: 10/19/19 15:54 Last Infusion: 10/19/19 16:24 Dose: 0 mls/hr Documented by: [id number] Admin: 10/19/19 15:53 Dose: 999 mls/hr Documented by: [id number] Daptomycin 225 mg/ Syringe 4.5 mls @ 2.25 mls/min IV NOW ONE; Protocol Stop: 10/19/19 17:25 Last Admin: 10/19/19 18:15 Dose: 2.25 mls/min Documented by: [id number] Sodium Chloride (Nss) 250 mls @ 999 mls/hr IV .Q16M ONE Stop: 10/19/19 17:50 Last Infusion: 10/19/19 18:14 Dose: 0 mls/hr Documented by: [id number] Admin: 10/19/19 17:58 Dose: 999 mls/hr Documented by: [id number] Critical Care Time Critical Care Time: Yes Total Critical Care Time: 37 I have personally spent 37 minutes of critical care time in the direct management of this patient. This includes bedside care, interpretation of diagnostic studies, and testing, discussion with consultants, patient, and family members, and other required patient management activities. This 37 minutes is in excess of all separately billable procedures. Medical Decision Making Differential Diagnosis Differential Diagnosis includes but is not limited to dehydration, sepsis, failed outpatient management, pneumonia, UTI, stroke, intracranial bleeding, renal or liver failure, electrolyte imbalance, and medication reaction. Medical Records Attestation: I reviewed the patient's medical records. The patient had a urine culture that was collected on October 08 that grew out 100,000 enterococcus. The only oral antibiotic that it was sensitive to was Macrobid. It was sensitive to Daptomycin and Vancomycin. A wound culture from the right leg was performed on 10/16, this grew out Pseudom onas. Home Medications Current Medication List: was personally reviewed by me Laboratory Data Attestation: I reviewed the patient's lab results. Result diagrams: 10/19/19 15:43 10/19/19 16:40 Lab Results 10/19/19 10/19/19 10/19/19 Range/Units 15:43 15:43 15:43 WBC 7.97 (4.8-10.8) K/uL RBC 3.56 L (4.2-5.4) M/uL Hgb 11.0 L (12.0-16.0) g/dL Hct 32.7 L (37-47) % MCV 91.9 (80-100) fL MCH 30.9 (25-34) pg MCHC 33.6 (32-36) g/dL RDW Std Deviation 50.6 H (36.4-46.3) fL RDW Coeff of Chris 15.4 H (11.5-14.5) % Plt Count 113 L (130-400) K/uL MPV 11.3 H (7.4-10.4) fL Immature Gran % (Auto) 0.5 % Neut % (Auto) 80.1 % Lymph % (Auto) 10.3 % [place] % (Auto) 7.2 % Eos % (Auto) 1.8 % Baso % (Auto) 0.1 % Immature Gran # (Auto) 0.04 H (0.00-0.02) K/uL Neut # (Auto) 6.39 (1.4-6.5) K/uL Lymph # (Auto) 0.82 L (1.2-3.4) K/uL [place] # (Auto) 0.57 (0.11-0.59) K/uL Eos # (Auto) 0.14 (0-0.5) K/uL Baso # (Auto) 0.01 (0-0.2) K/uL PT Cancelled INR Cancelled APTT Cancelled PTT Ratio Cancelled Sodium Potassium Chloride Carbon Dioxide Anion Gap BUN Creatinine Est Cr Clr Drug Dosing Est GFR ( Amer) Est GFR (Non-Af Amer) BUN/Creatinine Ratio Glucose Lactate (0.4-2.0) mmol/L Calcium Magnesium Total Bilirubin AST ALT Alkaline Phosphatase Ammonia Troponin I (0-0.045) ng/ml NT-Pro-B Natriuret Pep (0-1800) pg/ml Total Protein Albumin Globulin Albumin/Globulin Ratio Procalcitonin 0.17 (0-0.5) ng/ml Urine Color Urine Appearance (Clear) Urine pH (4.5-7.5) Ur Specific Basile (1.000-1.030) Urine Protein (Negative) Urine Glucose (UA) (Negative) Urine Ketones (Negative) Urine Blood (Negative) Urine Nitrite (Negative) Urine Bilirubin (Negative) Urine Urobilinogen (Negative) Ur Leukocyte Esterase (Negative) Urine WBC (Auto) (0-5) /hpf Urine RBC (Auto) (0-4) /hpf U Hyaline Cast (Auto) (0-5) /lpf U Epithel Cells (Auto) (0-5) /lpf Urine Bacteria (Auto) (Negative) Influenza Type A (PCR) (Neg) Influenza Type B (PCR) (Neg) 10/19/19 10/19/19 10/19/19 Range/Units 15:43 15:53 15:53 WBC (4.8-10.8) K/uL RBC (4.2-5.4) M/uL Hgb (12.0-16.0) g/dL Hct (37-47) % MCV (80-100) fL MCH (25-34) pg MCHC (32-36) g/dL RDW Std Deviation (36.4-46.3) fL RDW Coeff of Chris (11.5-14.5) % Plt Count (130-400) K/uL MPV (7.4-10.4) fL Immature Gran % (Auto) % Neut % (Auto) % Lymph % (Auto) % [place] % (Auto) % Eos % (Auto) % Baso % (Auto) % Immature Gran # (Auto) (0.00-0.02) K/uL Neut # (Auto) (1.4-6.5) K/uL Lymph # (Auto) (1.2-3.4) K/uL [place] # (Auto) (0.11-0.59) K/uL Eos # (Auto) (0-0.5) K/uL Baso # (Auto) (0-0.2) K/uL PT INR APTT PTT Ratio Sodium Cancelled Potassium Cancelled Chloride Cancelled Carbon Dioxide Cancelled Anion Gap Cancelled BUN Cancelled Creatinine Cancelled Est Cr Clr Drug Dosing Cancelled Est GFR ( Amer) Cancelled Est GFR (Non-Af Amer) Cancelled BUN/Creatinine Ratio Cancelled Glucose Cancelled Lactate 1.9 (0.4-2.0) mmol/L Calcium Cancelled Magnesium Cancelled Total Bilirubin Cancelled AST Cancelled ALT Cancelled Alkaline Phosphatase Cancelled Ammonia Cancelled Troponin I < 0.015 (0-0.045) ng/ml NT-Pro-B Natriuret Pep (0-1800) pg/ml Total Protein Cancelled Albumin Cancelled Globulin Cancelled Albumin/Globulin Ratio Cancelled Procalcitonin (0-0.5) ng/ml Urine Color Urine Appearance (Clear) Urine pH (4.5-7.5) Ur Specific Basile (1.000-1.030) Urine Protein (Negative) Urine Glucose (UA) (Negative) Urine Ketones (Negative) Urine Blood (Negative) Urine Nitrite (Negative) Urine Bilirubin (Negative) Urine Urobilinogen (Negative) Ur Leukocyte Esterase (Negative) Urine WBC (Auto) (0-5) /hpf Urine RBC (Auto) (0-4) /hpf U Hyaline Cast (Auto) (0-5) /lpf U Epithel Cells (Auto) (0-5) /lpf Urine Bacteria (Auto) (Negative) Influenza Type A (PCR) (Neg) Influenza Type B (PCR) (Neg) 10/19/19 10/19/19 10/19/19 Range/Units 16:02 16:28 16:40 WBC (4.8-10.8) K/uL RBC (4.2-5.4) M/uL Hgb (12.0-16.0) g/dL Hct (37-47) % MCV (80-100) fL MCH (25-34) pg MCHC (32-36) g/dL RDW Std Deviation (36.4-46.3) fL RDW Coeff of Chris (11.5-14.5) % Plt Count (130-400) K/uL MPV (7.4-10.4) fL Immature Gran % (Auto) % Neut % (Auto) % Lymph % (Auto) % [place] % (Auto) % Eos % (Auto) % Baso % (Auto) % Immature Gran # (Auto) (0.00-0.02) K/uL Neut # (Auto) (1.4-6.5) K/uL Lymph # (Auto) (1.2-3.4) K/uL [place] # (Auto) (0.11-0.59) K/uL Eos # (Auto) (0-0.5) K/uL Baso # (Auto) (0-0.2) K/uL PT INR APTT PTT Ratio Sodium 131 L Potassium 4.8 Chloride 103 Carbon Dioxide 22 Anion Gap 6.0 BUN 52 H Creatinine 1.04 Est Cr Clr Drug Dosing 30.3 Est GFR ( Amer) 55.2 Est GFR (Non-Af Amer) 47.6 BUN/Creatinine Ratio 49.5 H Glucose 213 H Lactate (0.4-2.0) mmol/L Calcium 8.3 L Magnesium 2.0 Total Bilirubin 0.4 AST 46 H ALT 43 Alkaline Phosphatase 237 H Ammonia Troponin I (0-0.045) ng/ml NT-Pro-B Natriuret Pep 3276 H (0-1800) pg/ml Total Protein 5.5 L Albumin 2.1 L Globulin 3.4 Albumin/Globulin Ratio 0.6 L Procalcitonin (0-0.5) ng/ml Urine Color Dark Yellow Urine Appearance Clear (Clear) Urine pH 5.0 (4.5-7.5) Ur Specific Basile 1.022 (1.000-1.030) Urine Protein Trace H (Negative) Urine Glucose (UA) Negative (Negative) Urine Ketones Negative (Negative) Urine Blood Negative (Negative) Urine Nitrite Negative (Negative) Urine Bilirubin Negative (Negative) Urine Urobilinogen Negative (Negative) Ur Leukocyte Esterase 1+ H (Negative) Urine WBC (Auto) 1-5 (0-5) /hpf Urine RBC (Auto) 0-4 (0-4) /hpf U Hyaline Cast (Auto) 1-5 (0-5) /lpf U Epithel Cells (Auto) 5-10 H (0-5) /lpf Urine Bacteria (Auto) 2+ H (Negative) Influenza Type A (PCR) Neg for Influ A (Neg) Influenza Type B (PCR) Neg for Influ B (Neg) 10/19/19 10/19/19 Range/Units 16:40 16:40 WBC (4.8-10.8) K/uL RBC (4.2-5.4) M/uL Hgb (12.0-16.0) g/dL Hct (37-47) % MCV (80-100) fL MCH (25-34) pg MCHC (32-36) g/dL RDW Std Deviation (36.4-46.3) fL RDW Coeff of Chris (11.5-14.5) % Plt Count (130-400) K/uL MPV (7.4-10.4) fL Immature Gran % (Auto) % Neut % (Auto) % Lymph % (Auto) % [place] % (Auto) % Eos % (Auto) % Baso % (Auto) % Immature Gran # (Auto) (0.00-0.02) K/uL Neut # (Auto) (1.4-6.5) K/uL Lymph # (Auto) (1.2-3.4) K/uL [place] # (Auto) (0.11-0.59) K/uL Eos # (Auto) (0-0.5) K/uL Baso # (Auto) (0-0.2) K/uL PT 12.1 H INR 1.2 H APTT 28.9 PTT Ratio 1.1 Sodium Potassium Chloride Carbon Dioxide Anion Gap BUN Creatinine Est Cr Clr Drug Dosing Est GFR ( Amer) Est GFR (Non-Af Amer) BUN/Creatinine Ratio Glucose Lactate (0.4-2.0) mmol/L Calcium Magnesium Total Bilirubin AST ALT Alkaline Phosphatase Ammonia 29.6 Troponin I (0-0.045) ng/ml NT-Pro-B Natriuret Pep (0-1800) pg/ml Total Protein Albumin Globulin Albumin/Globulin Ratio Procalcitonin (0-0.5) ng/ml Urine Color Urine Appearance (Clear) Urine pH (4.5-7.5) Ur Specific Basile (1.000-1.030) Urine Protein (Negative) Urine Glucose (UA) (Negative) Urine Ketones (Negative) Urine Blood (Negative) Urine Nitrite (Negative) Urine Bilirubin (Negative) Urine Urobilinogen (Negative) Ur Leukocyte Esterase (Negative) Urine WBC (Auto) (0-5) /hpf Urine RBC (Auto) (0-4) /hpf U Hyaline Cast (Auto) (0-5) /lpf U Epithel Cells (Auto) (0-5) /lpf Urine Bacteria (Auto) (Negative) Influenza Type A (PCR) (Neg) Influenza Type B (PCR) (Neg) Imaging Data Radiologist's Impression: Radiology results as stated below per my review and the radiologist's interpretation: CT head/brain wo con CLINICAL HISTORY: 89 years-old Female presenting with confusion. TECHNIQUE: Multidetector CT imaging of the head was performed without the use of intravenous contrast. IV contrast: None. One or more dose lowering techniques were used consistent with the principles of ALARA (as low as reasonably achievable), including automatic exposure control, mA or kV adjustment to individual patient size, and/or use of iterative reconstruction. COMPARISON: 09/19/2019. CT DOSE (mGy.cm): The estimated cumulative dose is 537.48 mGy.cm. FINDINGS: Building Certifier topogram: Unremarkable. Proportional ventricular and sulcal prominence, likely age-related parenchymal volume loss. No hemorrhage. Scattered dural calcification noted. Periventricular and subcortical white matter hypoattenuation, nonspecific but likely indicative of chronic small vessel ischemic change. No acute territorial infarct. No mass effect or midline shift. No extra-axial fluid collection. Stable calcified extra-axial subcentimeter focus along the left frontal convexity near the verte x. Paranasal sinuses and mastoid air cells clear. Calvarium intact. Intracranial atherosclerosis noted. IMPRESSION: 1. Chronic small vessel ischemic change. No acute intracranial abnormality. ACT 112: Negative or not required by law. Electronically signed by: Jose Haq M.D. 10/19/2019 4:18 PM XR chest 1V portable CLINICAL HISTORY: 89 years-old Female presenting with SEPSIS. TECHNIQUE: Portable upright AP view of the chest was obtained. COMPARISON: 08/04/2019. FINDINGS: Atherosclerosis of the aortic arch. Cardiac silhouette enlarged. Pulmonary vascular prominence and interstitial prominence to a mild degree. There is background significant heterogeneity of lung parenchyma. Mildly low lung volumes. Bilateral small pleural effusions. Added density at the lung bases. Degenerative changes of the thoracic spine. Upper abdomen normal. IMPRESSION: 1. Background emphysema with superimposed volume overload and congestive change in the setting of cardiomegaly. 2. Small bilateral pleural effusions and bibasilar atelectasis. Pneumonia is not favored. Aspiration may appears similarly. ACT 112: Negative or not required by law. Electronically signed by: Jose Haq M.D. 10/19/2019 4:02 PM ECG Data Attestation: I personally reviewed and interpreted this ECG as follows: Indication: + altered mental status Rate (beats per minute): 54 Rhythm: + atrial fibrillation ECG Intervals/blocks: + Normal QT-c (at 438) ECG ST segments: + Nonspecific ST abnormalities ECG Findings: + Poor R wave progression and + Other (Old inferior infarct); no PVCs Blood Pressure Blood Pressure Findings: Low blood pressure Blood Pressure Disposition: further management by hospitalist [facility] Narrative There is no leukocytosis. There is a very mild anemia noted. Platelet count slightly low. No concerning coagulopathy. BUN was elevated consistent with dehydration. No kidney failure. Lactic acid level was not elevated making sepsis less likely. There were a few subtle liver enzyme elevations, the bilirubin though was normal. Procalcitonin level was normal. EKG shows A. fib and a bradycardia. No acute ischemic change. Cardiac enzyme testing x1 is not consistent with acute cardiac injury. Chest x-ray shows some potential fluid overload and some small effusions, no obvious pneumonia. BNP was somewhat elevated consistent with fluid overload. Urinalysis does show evidence for infection. Influenza testing was negative. Brain CT shows no acute bleed or mass-effect. Looking back at previous urine cultures, she did grow a very resistant enterococcus just over a week ago. Daptomycin, vancomycin and Macrobid were shown to be appropriate antibiotics for this infection. A wound culture from the right leg from a few days ago did grow out Pseudomonas, sensitive to cefepime. The patient received IV saline, a 500 cc bolus and then a 250 cc bolus. She was given IV daptomycin as antibiotic coverage. She received IV cefepime for additional antibiotic coverage. The patient appears to have an ongoing UTI, the UTI is quite resistant. She presents today with some weakness, confusion and decreased urine output. She does have bilateral leg wraps with what appears to be some chronic cellulitis. She is mildly hypotensive here by our testing. Of note, I did speak to the patient and her family. She is to be a DNR. Hospitalization was felt warranted. She appears to have an ongoing resistant UTI, she may also have a lower extremity cellulitis. Case management has been consulted. The on-call hospitalist was consulted. Of note, I did order for the sadiq hugger during the latter half of the ED stay, patient's rectal temperature was recorded to be lower than normal and thus, the sadiq hugger order. Continuous Cardiac Monitoring: An order was placed for continuous cardiac monitoring. The monitor shows a rate of 55 with atrial fibrillation. Impression & Plan Hypotension, Weakness, UTI (urinary tract infection), Confusion, Failure of outpatient treatment, Cellulitis Discharge Plan Visit Data Chief Complaint: Illness Stated Complaint: CHANGE IN MENTAL STATUS ED Provider: Sonny Smith Discharge Problem: Hypotension, Weakness, UTI (urinary tract infection), Confusion, Failure of outpatient treatment, Cellulitis Patient Disposition: Being Evaluated by Hospitalist Forms Stand Alone Forms: My [facility] Prescriptions Prescriptions: No Action nitrofurantoin monohyd/m-cryst [Macrobid] 100 mg capsule 100 mg PO BID RF: 0 doxycycline hyclate 100 mg tablet 100 mg PO bid 14 Days Qty: 28 RF: 0 levothyroxine 125 mcg tablet 137 mcg PO QAM RF: 0 amlodipine 5 mg Tablet 5 mg PO QAM RF: 0 Glucagon Emergency Kit (human) 1 mg Recon Soln 1 ml IM UD PRN (Reason: Hypoglycemia) RF: 0 sodium chloride [Saline Mist] 0.65 % Aerosol,[place] 2 spray INTRANASAL DAILY PRN (Reason: Other) RF: 0 Lantus Solostar U-100 Insulin 100 unit/mL (3 mL) Insulin Pen 25 unit SUBCUT BID RF: 0 metoprolol succinate 200 mg Tablet Extended Release 24 Hr 200 mg PO QAM RF: 0 acetaminophen 500 mg Tablet 1,000 mg PO BID RF: 0 Novolin N NPH U-100 Insulin 100 unit/mL suspension 16 unit subcut QAM RF: 0 insulin aspart U-100 [Novolog Flexpen U-100 Insulin] 100 unit/mL (3 mL) insulin pen 0 unit subcut BID RF: 0 cholecalciferol (vitamin D3) [Vitamin D3] 2,000 unit Tablet 2,000 unit PO QAM RF: 0 Caltrate 600 plus D 600 mg (1,500 mg)-800 unit Tablet,Chewable 1 tab PO BID RF: 0 ferrous sulfate 325 mg (65 mg iron) Tablet 325 mg PO BID RF: 0 famotidine 20 mg tablet 20 mg PO QAM RF: 0 lisinopril 2.5 mg tablet 2.5 mg PO QAM RF: 0 Xarelto 20 mg tablet 20 mg PO DAILY@1600 RF: 0 Referrals Referrals: [facility], [facility] [Primary Care Provider] - Discharge Problem: Hypotension Qualifiers: Hypotension type: unspecified hypotension type Qualified Code(s): I95.9 - Hypotension, unspecified UTI (urinary tract infection) Qualifiers: Urinary tract infection type: site unspecified Hematuria presence: without hematuria Qualified Code(s): N39.0 - Urinary tract infection, site not specified Cellulitis Qualifiers: Site of cellulitis: extremity Site of cellulitis of extremity: lower extremity Laterality: unspecified laterality Qualified Code(s): L03.119 - Cellulitis of unspecified part of limb The scribe's documentation has been prepared under my direction and personally reviewed by me in its entirety. I confirm that the note above accurately reflects all work, treatment, procedures, and medical decision making performed by me.
[2019-10-19 16:46] LABS: Appearance Urine Clear (Clear); Bacteria Urine Automated 2+ (Negative); Bilirubin Urine Negative (Negative); Blood Urine Negative (Negative); Color Urine Dark Yellow; Glucose Urine UA Negative (Negative); Ketones Urine Negative (Negative); Leukocyte Esterase Urine 1+ (Negative); Nitrite Urine Negative (Negative); Protein Urine Trace (Negative); RBC Urine Automated 0-4 /hpf (0-4); Specific Gravity Urine 1.022 (1.000-1.030); Urobilinogen Urine Negative (Negative)
[2019-10-19 16:47] LABS: Influenza A virus by PCR Neg for Influ A (Neg); Influenza B virus by PCR Neg for Influ B (Neg)
[2019-10-19 17:04] LABS: INR 1.2 (0.9-1.1); Partial Thromboplastin Ratio 1.1; Partial Thromboplastin Time 28.9 Seconds (21.0-31.0); Prothrombin Time 12.1 Seconds (9.0-12.0)
[2019-10-19 17:12] LABS: Albumin Level 2.1 gm/dl (3.4-5.0); BUN Creatinine Ratio 49.5 (10-20); Calcium 8.3 mg/dl (8.5-10.1); Creatinine Clr Calc Pharmacy 30.3 ml/min; Est GFR (African American) 55.2; Est GFR (Non-African American) 47.6; Potassium 4.8 mmol/L (3.5-5.1)
[2019-10-19 17:16] LABS: Albumin Globulin Ratio 0.6 (0.9-2); Bilirubin,Total 0.4 mg/dl (0.2-1); Globulin 3.4 gm/dl (2.5-4.0); Total Protein 5.5 gm/dl (6.4-8.2)
[2019-10-19] MEDS ORDERED: DAPTOmycin 225 MG in SYRINGE 0 ML IV ONE (17:24)
[2019-10-19] MEDS ORDERED: SODIUM CHLORIDE 0.9% 250 ML IV ONE (17:35)
[2019-10-19] MEDS ORDERED: CEFEPIME 2,000 MG/20 ML VIAL IV STA (18:41)
--- NOTE | 2019-10-19 19:07 | History & Physical Report ---
Date of Service October 19, 2019 Assessment & Plan (1) Weakness: Admit med/surg Patient with history of chronic UTI and cellulitis, afebrile, no leukocytosis Recent wound cultures with psuedomonas and MRSA in leg wounds, recent UTI with enteroccocus Will continue daptomycin and cefepime started in ED Patient is hypothermic in ED - continuing warming blanket as needed Hold IVF for fluid overload on chest Xray Blood cultures, urine culture pending (2) Venous stasis ulcer: consult wound care nurse (3) CHF (congestive heart failure): Overload on CXR, BNP 3276 Will hold off on diuresis for lower blood pressures, saturating 94% in ED Hold IVF (4) Atrial fibrillation: Chronic, on Xeralto. Continue metoprolol (5) Hypertension: continue metoprolol, amlodipine (6) Diabetes mellitus, type II: BSGs ac & hs Consult glycemic pharmacist (7) Hyponatremia: Na 130 on admission repeat am. History of Present Illness Primary Care Provider: [facility] Ms. Berg presents from [facility] for weakness and confusion. She is unable to give history due to confusion. Family reports that she has baseline dementia and has had increasing confusion recently. She has had a general down trend in her health over the last month. She has chronic UTIs and lower extremity wounds. Patient denies any discomfort but thinks she is at the hospital because she had a baby. Unable to get a full review of systems. Pmhx: DMII, dementia A fib on Xeralto, chronic venous stasis ulcers, PAD, anemia, Allergies Allergy/AdvReac Type Severity Reaction Status Date / Time erythromycin base Allergy Unknown Unverified 10/19/19 16:14 Home Medications Home Medications Medication Instructions Recorded Confirmed Type Caltrate 600 plus D 1 tab PO BID 05/16/18 10/19/19 History Glucagon Emergency Kit (human) 1 ml IM UD PRN 09/03/18 10/19/19 History Lantus Solostar U-100 Insulin 25 unit SUBCUT BID 09/03/18 10/19/19 History amlodipine 5 mg PO QAM 09/03/18 10/19/19 History sodium chloride [Saline Mist] 2 spray INTRANASAL DAILY PRN 09/03/18 10/19/19 History ferrous sulfate 325 mg PO BID 10/13/18 10/19/19 History Novolin N NPH U-100 Insulin 16 unit SUBCUT QAM 02/26/19 10/19/19 History acetaminophen 1,000 mg PO BID 02/26/19 10/19/19 History cholecalciferol (vitamin D3) 2,000 unit PO QAM 02/26/19 10/19/19 History [Vitamin D3] insulin aspart U-100 [Novolog 0 unit SUBCUT BID 02/26/19 10/19/19 History Flexpen U-100 Insulin] metoprolol succinate 200 mg PO QAM 02/26/19 10/19/19 History levothyroxine 125 mcg tablet 137 mcg PO QAM tab 07/05/19 10/19/19 History famotidine 20 mg PO QAM 08/04/19 10/19/19 History Xarelto 20 mg PO DAILY@1600 09/19/19 10/19/19 History lisinopril 2.5 mg PO QAM 09/19/19 10/19/19 History doxycycline hyclate 100 mg tablet 100 mg PO bid 14 Days #28 tab 10/16/19 10/19/19 Rx nitrofurantoin 100 mg PO BID 10/16/19 10/19/19 History monohydrate/macrocrystals 100 mg capsule Past Med/Surg History Medical History Abnormal EKG (Acute) Abscess of bursa, left elbow Abscess, elbow Acute dehydration (Acute) Acute hyperglycemia (Acute) Acute kidney injury (Acute) Acute thoracic back pain (Acute) Altered mental status Altered mental status (Acute) Anemia Anemia (Acute) Atrial fibrillation (Chronic) Back pain Cardiomyopathy Cellulitis (Acute) CHF (congestive heart failure) (Acute) Chronic kidney disease with symptom management only, stage 3 (moderate) Cough (Acute) Diabetes (Chronic) Diabetes mellitus type 2 with complications Diarrhea DKA (diabetic ketoacidoses) (Acute) DKA (diabetic ketoacidosis) (Acute) DVT prophylaxis DVT prophylaxis DVT prophylaxis Edema Encounter for pre-operative examination Epistaxis (Acute) Fever (Acute) HTN (hypertension) (Chronic) Hyperkalemia (Acute) Hypertension Hypothermia (Acute) Hypothyroidism Iron deficiency anemia Left ventricular dysfunction Macular degeneration (Chronic) Microcytic anemia (Acute) Mitral regurgitation Nondisplaced fracture of right femur Pubic ramus fracture (Acute) Pulmonary HTN Right-sided heart failure Sepsis Sepsis (Acute) SIRS (systemic inflammatory response syndrome) (Acute) Symptomatic anemia (Acute) Tricuspid regurgitation UTI (urinary tract infection) (Acute) UTI (urinary tract infection) Weakness (Acute) Yeast infection Surgical History Status post hip surgery Status post hysterectomy Family History Other DM type 2 (diabetes mellitus, type 2) Hypertension Social History Preferred Language: Latvian Communication Ability: Effective Visual Impairment: No Limitations Mutual Fund Accountant Required: No Beliefs That Will Affect Care: None Current Living Situation: Longterm Current Living Situation Comment: resides at [facility] Feels Safe at Home: Yes Smoking Status: Former smoker Second Hand Exposure: No ; Hx Alcohol Use: No Hx Substance Use: No Physical Exam Constitutional: WD/WN, vitals as above Respiratory: normal respiratory effort, lungs clear to auscultation Cardiovascular: Rate/Rhythm: + bradycardic; + abnormal rate and + abnormal rhythm Gastrointestinal (Abdomen): normal bowel sounds, soft, nontender, no hepatosplenomegaly Musculoskeletal: generalized weakness Skin: ecchymosis skin, multiple ulcerations that are weeping in lower extremities, not hot erythematous lower legs, reddened buttocks, ecchymosis over middle spine Neurologic: moves all extremities and awake Psychiatric: Orientation: alert and oriented to person Affect: euthymic affect Results & Data Vital Signs (Past 12 Hours) Vital Signs Temp Pulse Pulse Resp BP BP Pulse Ox 10/19/19 18:15 34.9 C L 10/19/19 18:00 53 L 16 105/63 98 10/19/19 17:16 48 L 13 95/73 L 99 10/19/19 17:15 54 L 18 95/73 L 97 10/19/19 17:00 56 L 12 10/19/19 16:30 49 L 14 105/53 L 98 10/19/19 16:00 54 L 16 115/59 L 96 10/19/19 15:37 60 16 106/62 95 Code Status & VTE Plan Code Status do not resuscitate PG Care Time/CCT Total # of Minutes Spent Total Time Spent with Patient: Total time spent is greater than 50% in coordination of care (as documented) at patient's floor/unit and/or counseling patient: Coding Level of Care Code 80334 Initial Inpt Care Lvl 3 Diagnoses Weakness R53.1 Venous stasis ulcer I83.009; L97.909 CHF (congestive heart failure) I50.43 Heart failure chronicity: acute on chronic Heart failure type: combined systolic and diastolic Atrial fibrillation I48.2 Atrial fibrillation type: chronic Hypertension I10 Hypertension type: essential hypertension Diabetes mellitus, type II E11.9 Hyponatremia E87.1 (1) CHF (congestive heart failure) Heart failure chronicity: acute on chronic Heart failure type: combined systolic and diastolic Qualified Code(s): I50.43 - Acute on chronic combined systolic (congestive) and diastolic (congestive) heart failure (2) Atrial fibrillation Atrial fibrillation type: chronic Qualified Code(s): I48.2 - Chronic atrial fibrillation (3) Hypertension Hypertension type: essential hypertension Qualified Code(s): I10 - Essential (primary) hypertension
[2019-10-19] MEDS ORDERED: INSULIN ASPART 100 UNITS/ML 3 ML PEN SQ SCH (21:19)
[2019-10-19] MEDS ORDERED: SODIUM CHLORIDE 0.65% NA SOLN 45 ML (OCEAN) PRN (21:19)
[2019-10-19] MEDS ORDERED: DAPTOmycin 500 MG VIAL IV SCH (21:19)
[2019-10-19] MEDS ORDERED: CEFEPIME CONSULT ACTIVE PRN (21:19)
[2019-10-19] MEDS ORDERED: INSULIN GLARGINE SOLOSTAR 100 UNITS/ML 3 ML PEN SQ SCH (21:19)
[2019-10-19] MEDS ORDERED: DAPTOMYCIN CONSULT ACTIVE PRN (21:46)
[2019-10-19] MEDS ORDERED: PHARMACY GLYCEMIC MGMT CONSULT PRN (21:47)
[2019-10-19] MEDS ORDERED: GLUCOSE 10 TABS/TUBE PO PRN (22:00)
[2019-10-19] MEDS ORDERED: GLUCOSE 40% GEL 15 GM TUBE PO PRN (22:00)
[2019-10-19] MEDS ORDERED: GLUCAGON FOR INJ 1 MG VIAL IM PRN (22:00)
[2019-10-19] MEDS ORDERED: PNEUMOCOCCAL POLYSACCHARIDES 25 MCG/0.5 ML VIAL/SYR IM ONE (22:22)
[2019-10-19] MEDS ORDERED: INFLUENZA VACCINE HIGH DOSE 65+ 0.5 ML SYR IM ONE (22:22)
[2019-10-19] MEDS ORDERED: INFLUENZA ADMINISTRATION CHARGE ONE (22:22)
[2019-10-19] MEDS ORDERED: PNEUMOCOCCAL ADMINISTRATION CHARGE ONE (22:22)
[2019-10-19] MEDS: ACETAMINOPHEN 500 MG TAB PO SCH (22:49)
[2019-10-19] MEDS: FERROUS SULFATE 325 MG TAB PO SCH (22:49)
[2019-10-19] MEDS: CALCIUM 600MG + VIT D 400 IU TAB PO SCH (22:50)
[2019-10-19] MEDS ORDERED: INSULIN ASPART 100 UNITS/ML 3 ML PEN SQ STA (22:57)
[2019-10-20 01:53] LABS: Basophils # (auto) 0.02 K/uL (0-0.2); Basophils % (auto) 0.3 %; Eosinophils % (auto) 1.3 %; Hematocrit (blood only) 31.4 % (37-47); Hemoglobin 10.7 g/dL (12.0-16.0); Immature Granulocytes # (auto) 0.04 K/uL (0.00-0.02); Immature Granulocytes % (auto) 0.5 %; Lymphocytes # (auto) 0.93 K/uL (1.2-3.4); Lymphocytes % (auto) 12.6 %; Mean Corpuscular Hemoglobin 30.9 pg (25-34); Mean Corpuscular Hgb Conc 34.1 g/dL (32-36); Mean Corpuscular Volume 90.8 fL (80-100); Mean Platelet Volume 10.1 fL (7.4-10.4); Monocytes # (auto) 0.85 K/uL (0.11-0.59); Monocytes % (auto) 11.5 %; Neutrophils # (auto) 5.47 K/uL (1.4-6.5); Neutrophils % (auto) 73.8 %; Nucleated RBC # (auto) 0.03 K/uL (0-0); Nucleated RBC % (auto) 0.4 %; Platelet Count 114 K/uL (130-400); RDW Coefficient of Variation 15.3 % (11.5-14.5); RDW Standard Deviation 49.7 fL (36.4-46.3); Red Blood Count 3.46 M/uL (4.2-5.4); White Blood Count 7.41 K/uL (4.8-10.8)
[2019-10-20 02:02] LABS: Base Excess VBG -0.9 mEq/L; Oxygen Saturation VBG 86.8 %; pH VBG 7.48 (7.36-7.41)
[2019-10-20 02:13] LABS: BUN Creatinine Ratio 50.1 (10-20); Calcium 8.4 mg/dl (8.5-10.1); Creatinine Clr Calc Pharmacy 29.5 ml/min; Est GFR (African American) 53.3; Potassium 4.8 mmol/L (3.5-5.1)
--- NOTE | 2019-10-20 02:24 | Communication Note ---
Date of Service: October 20, 2019 Called to bedside for acute mentation change. She does was reportedly mentating well, answering questions appropriately, and having full discussions with nursing and then stopped answering basic questions or orientation questions, and was not following commands. On bedside assessment pupils were reactive to light and accommodation, patient opened eyes to vigorous physical stimuli but not to voice, and did not give meaningful answers to questions. Did not squeeze fingers on command. Patient with a history of atrial fibrillation, and was admitted for CHF exacerbation with negative pro-Virgilio, no leukocytosis but who is been hypothermic through admission. CT head noncontrast showed no acute findings, chronic involutional change. BMP with no acute electrolyte derangements, VBG with mild alkalosis but no signs of substantial hypercarbia. No uptrend in white blood cell count, and patient maintaining adequate saturations on room air. BSG at bedside normal. On revisit pt was more alert and answered some questions. Presentation most likely delirium, further workup/intervention deferred.
[2019-10-20] MEDS: INSULIN ASPART 100 UNITS/ML 3 ML PEN SC SCH ×5 (04:36→20:20)
[2019-10-20] MEDS: LEVOTHYROXINE SODIUM 137 MCG TABLET PO SCH (06:06)
--- NOTE | 2019-10-20 07:34 | CT Scan Report ---
CT OF THE HEAD WITHOUT CONTRAST CLINICAL HISTORY: mentation change, hx afib COMPARISON STUDY: Head CT October 19, 2019. CT DOSE: 614.27 mGy.cm TECHNIQUE: Helical axial images of the head were obtained without IV contrast. Automated exposure con trol was utilized for the study. A dose lowering technique was utilized adhering to the principles o f ALARA. FINDINGS: No acute intracranial hemorrhage, midline shift or mass effect is present. The ventricular system is stable. The basilar cisterns are patent. No extra-axial collections are present. There are no findings to suggest acute dural sinus thrombosis or acute territorial infarct. No significant calv arial abnormalities are present. Visualized portions of the sinuses and mastoid air cells are clear. White matter hypodensities are unchanged and suggest small vessel disease. There is moderate atrophy. IMPRESSION: No acute intracranial findings. ACT 112: Negative or not required by law. Electronically signed by: Braxton Florez M.D. 10/20/2019 7:32 AM
[2019-10-20] MEDS ORDERED: AMLODIPINE BESYLATE 5 MG TAB PO SCH (09:00)
[2019-10-20] MEDS ORDERED: METOPROLOL SUCC 50MG EXT REL TAB PO SCH (09:00)
[2019-10-20] MEDS ORDERED: INSULIN ISOPHANE SQ SCH (09:00)
[2019-10-20] MEDS ORDERED: INSULIN GLARGINE SOLOSTAR 100 UNITS/ML 3 ML PEN SQ SCH ×2 (09:00→21:00)
[2019-10-20] MEDS: FAMOTIDINE 20 MG TAB PO SCH (10:00)
[2019-10-20] MEDS: CALCIUM 600MG + VIT D 400 IU TAB PO SCH ×2 (10:01→15:44)
[2019-10-20] MEDS: ACETAMINOPHEN 500 MG TAB PO SCH ×2 (10:01→20:03)
[2019-10-20] MEDS: FERROUS SULFATE 325 MG TAB PO SCH ×2 (10:01→15:44)
[2019-10-20] MEDS: CHOLECALCIFEROL 1,000 UNITS 25 MCG TAB PO SCH (10:02)
[2019-10-20] MEDS ORDERED: NovoLIN-N (NPH) PER UNIT CHARGE SQ ONE (13:15)
--- NOTE | 2019-10-20 13:30 | Pharmacy Report ---
Pharmacy Glycemic Short Note 2 - Date of Service October 20, 2019 - Glycemic Short BSG Results (Last 24 hours): 10/19/19 10/19/19 10/19/19 15:43 16:40 23:00 Glucose Cancelled 213 H POC Glucose 147 H 10/20/19 10/20/19 10/20/19 00:13 01:45 04:33 Glucose 133 H POC Glucose 137 H 120 H 10/20/19 10/20/19 07:32 11:41 Glucose POC Glucose 99 175 H OUTPATIENT ANTIDIABETIC REGIMEN: * Lantus 25 units SQ BID * NPH 16 units SQ qAM (hold if BSG is < 90) * Novolog per SS at 07 and 1600 (0-12 units) * A1c = 8.8% ASSESSMENT: * 89 yr old T2DM female admitted with weakness and lower extremity wounds. * Pt is known to glycemic service from previous admissions. We have had challenges with her glycemic regimen in the past. She tends to be very sensitive to carbohydrate intake and requires a tighter carb ratio with breakfast. She is prone to severe hyperglycemia at lunchtime followed by hypoglycemia after large doses of correction. * I will continue home use of both Lantus and NPH with NPH given in the morning to aid in BSG spike around lunch/dinner. * I will utilize a looser CF and CR compared to previous admissions since NPH is on board. PLAN FOR INPATIENT GLYCEMIC CONTROL: * Basal insulin * Lantus 20 units SQ this morning, then 0-20 units at HS based on BSG * NPH 10 units SQ with breakfast (given with lunch on 10/20) * Bolus insulin * NovoLog per scale ACHS or Q6hrs while NPO * Goal Range: Low 120 mg/dL - High 160 mg/dL * Correction Factor: 30 mg/dL/unit * Nutritional / Prandial insulin per carb ratio of 1 unit per 7 grams CHO consumed PLAN FOR DISCHARGE: * pending
--- NOTE | 2019-10-20 14:22 | Hospitalist Progress Note ---
Date of Service October 20, 2019 Assessment & Plan (1) Weakness: Possible sepsis - Patient with history of chronic UTI and cellulitis, afebrile On admission elevated respers, hypothermic, hypotensive Recent wound cultures with psuedomonas and MRSA in leg wounds, recent UTI with enteroccocus Will continue daptomycin and cefepime started in ED Patient is hypothermic in ED - continuing warming blanket as needed Patient did have overload on chest Xray however given her hypotension and low urine output likely is intravascularly dry - will give gentle IVF at 80 ml/hr x2 liters Blood cultures, urine culture pending (2) Venous stasis ulcer: consult wound care nurse (3) CHF (congestive heart failure): Overload on CXR, BNP 3276 See above (4) Atrial fibrillation: Chronic, on Xeralto. Will decrease metoprolol to 100mg due to hypotension (5) Hypertension: Metoprolol as above, hold amlodipine and lisinopril (6) Diabetes mellitus, type II: BSGs ac & hs Consult glycemic pharmacist (7) Hyponatremia: Na 130 on admission, 133 today follow Will consult palliative care for goals of care. Patient has been generally declining over the last month and has progressive dementia. Supervising Physician Co-Signing Physician Notes I supervised Mariana Ash NP on this patient's care. I examined the patient today independently of her. I discussed the plan of care with her with the plan being as written in her note except for any following changes/exceptions: None. Doing well today. Wakes up easily. Is AAOx1 (self). When asked where she is, she reports she did eat lunch and will eat dinner tonight. Does not know the year, but at least reports as much. She denies any chest pain, abdominal pain, MSK pain, nausea or vomiting, shortness of breath, or other symptoms and is very pleasant and overall has a pleasant demeanor. Subjective Ms. Berg was lethargic this morning when I saw her, not answering my questions but frequently moaning. Physical Exam Physical Exam: General: no distress Eyes: normal inspection, PERLL Respiratory: chest non tender, clear to auscultation, normal breath sounds, no respiratory distress, no accessory muscle use Cardiac: regular rate and rhythm, no rub or gallop, no murmur, +1 pitting edema lower extremities GI/: active bowel sounds, no abd pain or tenderness, soft, non distended Extremities: normal range of motion, normal strength, non tender Neuro/Psych: lethargic, unable to assess orientation Skin: normal color, dry Results & Data ([facility]) Vital Signs (Past 12 Hours) Vital Signs Temp Pulse Resp BP Pulse Ox 10/20/19 11:51 36.6 C 83 16 99/65 L 94 10/20/19 06:52 36.6 C 76 16 97/59 L 93 10/20/19 05:05 37.0 C 10/20/19 04:30 36.6 C 10/20/19 04:01 36.3 C L 10/20/19 03:05 36.2 C L 10/20/19 02:42 36.6 C PG Care Time/CCT Total # of Minutes Spent Total Time Spent with Patient: Total time spent is greater than 50% in coordination of care (as documented) at patient's floor/unit and/or counseling patient: Coding Level of Care Code 38438 Subseq Hosp Care Lvl 2 Diagnoses Weakness R53.1 Venous stasis ulcer I83.009; L97.909 CHF (congestive heart failure) I50.43 Heart failure chronicity: acute on chronic Heart failure type: combined systolic and diastolic Atrial fibrillation I48.2 Atrial fibrillation type: chronic Hypertension I10 Hypertension type: essential hypertension Diabetes mellitus, type II E11.9 Hyponatremia E87.1 (1) CHF (congestive heart failure) Heart failure chronicity: acute on chronic Heart failure type: combined systolic and diastolic Qualified Code(s): I50.43 - Acute on chronic combined systolic (congestive) and diastolic (congestive) heart failure (2) Atrial fibrillation Atrial fibrillation type: chronic Qualified Code(s): I48.2 - Chronic atrial fibrillation (3) Hypertension Hypertension type: essential hypertension Qualified Code(s): I10 - Essential (primary) hypertension
--- NOTE | 2019-10-20 14:36 | XRay Report ---
XR hip 1V RT w pelvis CLINICAL HISTORY: Right hip pain and bruising. COMPARISON: Pelvis radiograph November 21, 2018. 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 There is a healed fractu re of the inferior pubic ramus. This is unchanged since exam of November 21, 2018. Trochanteric nail wit hin the right femur is noted. No acute fracture within the pelvis or hips. Hardware is intact. A few ossific densities adjacent to the right femoral neck are chronic. IMPRESSION: 1. No acute fracture within the pelvis or hips. 2. No change in appearance of the nonunited left superior pubic ramus fracture. 3. Proximal right femoral internal fixation. Hardware intact. ACT 112: Negative or not required by law. Electronically signed by: Braxton Florez M.D. 10/20/2019 2:34 PM
--- NOTE | 2019-10-20 14:38 | XRay Report ---
XR thoracic spine 3V routine CLINICAL HISTORY: Back pain and bruising. COMPARISON STUDY: Thoracic spine CT May 16, 2018. FINDINGS: Alignment of the thoracic spine is anatomic. Vertebral body heights are maintained. No acut e fracture. There is mild to moderate multilevel disc space narrowing and osteophytosis within the th oracic spine. No osseous lesion is identified by radiography. Trace right pleural effusion is noted. IMPRESSION: 1. No acute thoracic spine fracture or subluxation. 2. [id number] multilevel degenerative changes within the thoracic spine. ACT 112: Negative or not required by law. Electronically signed by: Braxton Florez M.D. 10/20/2019 2:37 PM
[2019-10-20] MEDS: ACETAMINOPHEN 325 MG TAB PO PRN (15:41)
[2019-10-20] MEDS: RIVAROXABAN 15 MG TAB PO SCH (15:44)
[2019-10-20] MEDS: DEXTROSE 50% 50 ML SYRINGE IV PRN ×2 (16:35→19:59)
[2019-10-20] MEDS: SODIUM CHLORIDE 0.9% 1000ML 1,000 ML IV SCH ×2 (17:08→18:29)
[2019-10-20] MEDS ORDERED: PHARMACY GLYCEMIC MGMT CONSULT STA (17:40)
[2019-10-20] MEDS: DAPTOmycin 225 MG in SYRINGE 0 ML IV SCH ×2 (18:20→18:24)
--- NOTE | 2019-10-20 18:30 | XRay Report ---
XR chest 1V portable CLINICAL HISTORY: chf COMPARISON STUDY: Chest radiograph October 19, 2019. FINDINGS: Small bilateral pleural effusions are noted. Interstitial thickening has increased. Moderat e cardiomegaly is noted. There are mild bibasilar opacities. There is no pneumothorax. IMPRESSION: Interval progression of suspected pulmonary edema with small bilateral pleural effusions , right larger than left. ACT 112: Negative or not required by law. Electronically signed by: Braxton Florez M.D. 10/20/2019 6:28 PM
[2019-10-20] MEDS: CEFEPIME 2,000 MG in SYRINGE 7.5 ML IV SCH (18:31)
[2019-10-20 18:37] LABS: BUN Creatinine Ratio 45.8 (10-20); Calcium 8.6 mg/dl (8.5-10.1); Creatinine Clr Calc Pharmacy 28.7 ml/min; Est GFR (African American) 51.5; Est GFR (Non-African American) 44.5; Potassium 4.3 mmol/L (3.5-5.1)
[2019-10-21] MEDS: DEXTROSE 50% 50 ML SYRINGE IV PRN ×2 (00:03→07:50)
[2019-10-21] MEDS: INSULIN ASPART 100 UNITS/ML 3 ML PEN SC SCH ×6 (00:08→20:57)
[2019-10-21] MEDS: LEVOTHYROXINE SODIUM 137 MCG TABLET PO SCH (06:09)
[2019-10-21] MEDS: CALCIUM 600MG + VIT D 400 IU TAB PO SCH ×2 (07:55→16:48)
[2019-10-21] MEDS: ACETAMINOPHEN 500 MG TAB PO SCH ×2 (07:55→20:51)
[2019-10-21] MEDS: FERROUS SULFATE 325 MG TAB PO SCH ×2 (07:56→16:48)
[2019-10-21 08:07] LABS: Est GFR (African American) 72.5; Est GFR (Non-African American) 62.5
[2019-10-21] MEDS: CARBOHYDRATES FOR HYPOGLYCEMIA PO PRN ×2 (08:15→16:43)
[2019-10-21 08:17] LABS: Thyroid Stimulating Hormone 0.623 uIu/ml (0.300-4.500)
--- NOTE | 2019-10-21 08:35 | XCELERA ---
[id number] \\[email or web address]\[id number]_[id number]
--- NOTE | 2019-10-21 08:35 | Pharmacy Report ---
Pharmacy Glycemic Short Note 2 - Date of Service October 21, 2019 - Glycemic Short BSG Results (Last 24 hours): 10/20/19 10/20/19 10/20/19 11:41 16:31 16:33 Glucose POC Glucose 175 H 44 L* 54 L* 10/20/19 10/20/19 10/20/19 17:09 18:04 19:55 Glucose 82 POC Glucose 179 H 40 L* 10/20/19 10/20/19 10/20/19 19:57 20:15 23:56 Glucose POC Glucose 43 L* 138 H 49 L* 10/20/19 10/21/19 10/21/19 23:58 00:20 03:58 Glucose POC Glucose 55 L* 131 H 79 10/21/19 10/21/19 07:41 07:42 Glucose POC Glucose 51 L* 43 L* OUTPATIENT ANTIDIABETIC REGIMEN: * Lantus 25 units SQ BID * NPH 16 units SQ qAM (hold if BSG is < 90) * Novolog per SS at 07 and 1600 (0-12 units) * A1c = 8.8% ASSESSMENT: 10/21 * Barbara has had sustained hypoglycemia since yesterday afternoon * She received 30 units of basal insulin and 3 units of bolus insulin, last insulin administration ~noon yesterday * BSGs finally up above 180 mg/dL at lunch; however, I would have expected higher BSGs after no insulin coverage given and patient ate 100% of her breakfast. Nurse then reported that patient did not eat her lunch. * At [facility] today, discussed that patient will not be on comfort care but will not be escalating therapy. Will plan to be conservative with insulin dosing, in order to prevent sustained hypoglycemia in the setting of changing PO intake. 10/20 * 89 yr old T2DM female admitted with weakness and lower extremity wounds. * Pt is known to glycemic service from previous admissions. We have had challenges with her glycemic regimen in the past. She tends to be very sens itive to carbohydrate intake and requires a tighter carb ratio with breakfast. She is prone to severe hyperglycemia at lunchtime followed by hypoglycemia after large doses of correction. * I will continue home use of both Lantus and NPH with NPH given in the morning to aid in BSG spike around lunch/dinner. * I will utilize a looser CF and CR compared to previous admissions since NPH is on board. PLAN FOR INPATIENT GLYCEMIC CONTROL: * Basal insulin * Lantus per the following scale: * 0 units for BSG < 250 * 10 units for BSG 250 or above * Bolus insulin - loosen CF/CR * NovoLog per scale ACHS or Q6hrs while NPO * Goal Range: Low 120 mg/dL - High 160 mg/dL * Correction Factor: 35 mg/dL/unit * Nutritional / Prandial insulin per carb ratio of 1 unit per 20 grams CHO consumed PLAN FOR DISCHARGE: * pending
[2019-10-21] MEDS ORDERED: NovoLIN-N (NPH) PER UNIT CHARGE SQ SCH (09:00)
--- NOTE | 2019-10-21 09:12 | Palliative Care Consultation ---
Date of Consultation October 21, 2019 Assessment & Plan (1) Goals of care, counseling/discussion: -89 year old female patient from [facility] with PMH afib, diabetes, CHF, CKD stage III, UTI, venous stasis ulcers, and others, presented to the hospital a couple days ago with c/o weakness and confusion. Patient was being treated as outpatient for recent UTI and cellulitis, but is not improving. Per record, family reports and overall decline in her mental and physical health over the last month. CXR on admission showed some volume overload, however patient's blood pressure was marginal, so diuretics were not given. Patient was being gently rehydrated, but then third spacing edema worsened, so the fluids were stopped. She is currently on abx for these possible infections, however she does not have leukocytosis or a fever. Echo shows EF 55%, but does have severely dilated atria, moderate mitral regurg and severe tricuspid regurg. Given her age, comorbidities and reports of recent decline, palliative care is consulted. -Met with patient, her daughter Karina, son Manny, and a grandson, in room 257 this morning. Patient was crying out, hugging family saying "I just don't want to leave you yet." She was saying she was uncomfortable and certainly appeared to be in distress. I helped reposition the patient in bed and we calmed her down. Patient said she is not actually having pain. She is having emotional distress and does seem mildly confused. Family asked that I return in about a half hour. -Returned to the patient's room later and she was resting comfortably. Karina and Manny stepped out of room to discuss with me. -We discussed medical condition in detail. We are currently treating for this previous UTI and cellulitis with IV abx. So far, it has not seemed to make a difference in patient's overall condition, but Karina feels that patient's legs look better. -Patient's family describe that she has been declining for about a month-- legs worsening, weaker, not ambulating at all any more and is wheelchair bound. She has made comments several times about being ready to "go see her ," who is . Family knows patient would not want aggressive/invasive medical care. -At this time, we will continue abx and current treatment. NO ESCALATION IN CARE. If patient's condition deteriorates, do not transfer to ICU, no pressors. Likely if this happens, family would opt to transition to comfort measures. -Plan to reevaluate every 24 hours along with family and decide whether to continue care or transition to [employer] based on progress. Overall, patient's family wants her to be comfortable. The goal would be to return to [facility], possibly with hospice care depending on how she does. -Patient's family does want her symptoms managed. Tylenol is ordered BID scheduled and PRN for pain scale 1-5, ordered roxanol 5mg SL Q6h PRN pain scale 6-10. -Will continue to follow. (2) Weakness: (3) UTI (urinary tract infection): Hematuria presence: without hematuria Urinary tract infection type: site unspecified Qualified Code(s): N39.0 - Urinary tract infection, site not specified (4) Cellulitis: Laterality: unspecified laterality Site of cellulitis: extremity Site of cellulitis of extremity: lower extremity Qualified Code(s): L03.119 - Cellulitis of unspecified part of limb Supervising Physician Co-Signing Physician Notes Chart reviewed, patient seen and examined-patient's son, granddaughter and grandson in law at bedside. Collaborated with DAVI Riebra PE: Patient tearful while conversing with her granddaughter, denies pain or discomfort HEENT: EOMI, hearing grossly within normal limits Respirations: Unlabored, diminished breath sounds bilaterally at bases CV: Regular rate, positive lower extremity edema Abdomen: Soft, nontender Neuro: Alert and oriented Agree with above note, assessment and plan as per DAVI Ribera. Will continue to follow and assist patient family with medical decision making. History of Present Illness Attending Physician: Sandy Bates MD History of Present Illness This 89 year old female patient from [facility] with PMH afib, diabetes, CHF, CKD stage III, UTI, venous stasis ulcers, and others, pre sented to the hospital a couple days ago with c/o weakness and confusion. Patient was being treated as outpatient for recent UTI and cellulitis, but is not improving. Per record, family reports and overall decline in her mental and physical health over the last month. CXR on admission showed some volume overload, however patient's blood pressure was marginal, so diuretics were not given. Patient was being gently rehydrated, but then third spacing edema worsened, so the fluids were stopped. She is currently on abx for these possible infections, however she does not have leukocytosis or a fever. Echo shows EF 55%, but does have severely dilated atria, moderate mitral regurg and severe tricuspid regurg. Given her age, comorbidities and reports of recent decline, palliative care is consulted. Thank you kindly for this consult. Palliative care team will follow as needed. Allergies Allergy/AdvReac Type Severity Reaction Status Date / Time erythromycin base Allergy Unknown Unverified 10/19/19 16:14 Home Medications Home Medications Medication Instructions Recorded Confirmed Type Caltrate 600 plus D 1 tab PO BID 05/16/18 10/19/19 History Glucagon Emergency Kit (human) 1 ml IM UD PRN 09/03/18 10/19/19 History Lantus Solostar U-100 Insulin 25 unit SUBCUT BID 09/03/18 10/19/19 History amlodipine 5 mg PO QAM 09/03/18 10/19/19 History sodium chloride [Saline Mist] 2 spray INTRANASAL DAILY PRN 09/03/18 10/19/19 History ferrous sulfate 325 mg PO BID 10/13/18 10/19/19 History Novolin N NPH U-100 Insulin 16 unit SUBCUT QAM 02/26/19 10/19/19 History acetaminophen 1,000 mg PO BID 02/26/19 10/19/19 History cholecalciferol (vitamin D3) 2,000 unit PO QAM 02/26/19 10/19/19 History [Vitamin D3] insulin aspart U-100 [Novolog 0 unit SUBCUT BID 02/26/19 10/19/19 History Flexpen U-100 Insulin] metoprolol succinate 200 mg PO QAM 02/26/19 10/19/19 History levothyroxine 125 mcg tablet 137 mcg PO QAM tab 07/05/19 10/19/19 History famotidine 20 mg PO QAM 08/04/19 10/19/19 History Xarelto 20 mg PO DAILY@1600 09/19/19 10/19/19 History lisinopril 2.5 mg PO QAM 09/19/19 10/19/19 History doxycycline hyclate 100 mg tablet 100 mg PO bid 14 Days #28 tab 10/16/19 10/19/19 Rx nitrofurantoin 100 mg PO BID 10/16/19 10/19/19 History monohydrate/macrocrystals 100 mg capsule ciprofloxacin HCl 500 mg tablet 500 mg PO q12h #28 tab 10/21/19 Rx Patient History Medical History (Updated 10/21/19 @ 09:07 by DAVI Joy) Abnormal EKG (Acute) Abscess of bursa, left elbow Abscess, elbow Acute dehydration (Acute) Acute hyperglycemia (Acute) Acute kidney injury (Acute) Acute thoracic back pain (Acute) Altered mental status Altered mental status (Acute) Anemia Anemia (Acute) Atrial fibrillation (Chronic) Back pain Cardiomyopathy Cellulitis (Acute) CHF (congestive heart failure) (Acute) Chronic kidney disease with symptom management only, stage 3 (moderate) Cough (Acute) Diabetes (Chronic) Diabetes mellitus type 2 with complications Diarrhea DKA (diabetic ketoacidoses) (Acute) DKA (diabetic ketoacidosis) (Acute) DVT prophylaxis DVT prophylaxis DVT prophylaxis Edema Encounter for pre-operative examination Epistaxis (Acute) Fever (Acute) Goals of care, counseling/discussion HTN (hypertension) (Chronic) Hyperkalemia (Acute) Hypertension Hypothermia (Acute) Hypothyroidism Iron deficiency anemia Left ventricular dysfunction Macular degeneration (Chronic) Microcytic anemia (Acute) Mitral regurgitation Nondisplaced fracture of right femur Pubic ramus fracture (Acute) Pulmonary HTN Right-sided heart failure Sepsis Sepsis (Acute) SIRS (systemic inflammatory response syndrome) (Acute) Symptomatic anemia (Acute) Tricuspid regurgitation UTI (urinary tract infection) (Acute) UTI (urinary tract infection) Weakness (Acute) Yeast infection Surgical History Status post hip surgery Status post hysterectomy Family History Other DM type 2 (diabetes mellitus, type 2) Hypertension Social History Preferred Language: Ukrainian Communication Ability: Impaired Visual Impairment: No Limitations Workers' Compensation Commissioner Required: No Beliefs That Will Affect Care: None Current Living Situation: Long-Term Current Living Situation Comment: resides at [facility] Feels Safe at Home: Yes Smoking Status: Former smoker Second Hand Exposure: No ; Hx Alcohol Use: No Hx Substance Use: No Review of Systems Review of Systems: Full ROS difficult to obtain due to emotions and confusion. Patient did state "no" several times to pain. Physical Exam Constitutional: + ill appearing and + frail appearing Respiratory: normal respiratory effort, lungs clear to auscultation Auscultation: + diminished lung sounds Cardiovascular: Rate/Rhythm: regular rate and regular rhythm Extremities: + edema (BLE) Gastrointestinal (Abdomen): Inspection/Auscultation: normal bowel sounds Percussion/Palpation: abdomen soft Skin: BLE wrapped. Some blood on RLE dressing Neurologic: moves all extremities, awake and + confused Psychiatric: Orientation: oriented to person; + not oriented to place and + not oriented to time Insight: + poor insight Results & Data Vital Signs (Past 12 Hours) Vital Signs Temp Pulse Pulse Resp BP Pulse Ox 10/21/19 07:22 36.2 C L 66 18 105/58 L 96 10/21/19 02:50 79 16 103/68 93 10/21/19 02:27 36.5 C 10/21/19 00:32 69 10/21/19 00:25 34.9 C L 71 18 106/65 92 10/20/19 23:30 69 Coding Level of Care Code 30841 Inpt Consult Level 3 Diagnoses Goals of care, counseling/discussion Z71.89 Weakness R53.1 UTI (urinary tract infection) N39.0 Hematuria presence: without hematuria Urinary tract infection type: site unspecified Cellulitis L03.119 Laterality: unspecified laterality Site of cellulitis: extremity Site of cellulitis of extremity: lower extremity Time Spent (min) 70 Time Spent Midlevel 70 minutes with >50% of the time spent at bedside with patient and family discussing condition and GOC. Attending Spent 20 minutes in addition to the 70 minutes spent by DAVI Ribera for a total of 90 minutes with greater than 50% of the time spent at bedside providing support and assisting patient family with medical decision making.
[2019-10-21] MEDS: METOPROLOL SUCC 50MG EXT REL TAB PO SCH (10:31)
[2019-10-21] MEDS: FAMOTIDINE 20 MG TAB PO SCH (10:32)
[2019-10-21] MEDS: CHOLECALCIFEROL 1,000 UNITS 25 MCG TAB PO SCH (10:32)
[2019-10-21] MEDS ORDERED: MoRPHine SULFATE 5 MG/0.25 ML UDP PO PRN (10:45)
[2019-10-21 11:26] LABS: BUN Creatinine Ratio 47.4 (10-20); Calcium 8.8 mg/dl (8.5-10.1); Creatinine Clr Calc Pharmacy 37.6 ml/min; Est GFR (African American) 71.4; Est GFR (Non-African American) 61.6; Potassium 3.9 mmol/L (3.5-5.1)
[2019-10-21] MEDS: RIVAROXABAN 15 MG TAB PO SCH (16:48)
--- NOTE | 2019-10-21 16:59 | Hospitalist Progress Note ---
Date of Service October 21, 2019 Assessment & Plan (1) Sepsis: Suspected Sepsis, POA Secondary to leg wounds treating as below (2) Metabolic encephalopathy: Metabolic/Septic encephalopathy Secondary to leg wounds, possible UTI (3) Weakness: Possible sepsis as above - Patient with history of chronic UTI and cellulitis, afebrile On admission with tachypnea, with persistent hypothermia, hypotensive which is now improved Recent wound cultures with psuedomonas and MRSA in leg wounds, recent UTI with enteroccocus Will continue treatment for wound infection as below Patient did have overload on chest Xray however given her hypotension and low urine output likely is intravascularly dry - will give gentle IVF at 80 ml/hr x2 liters Blood cultures, urine culture pending (4) Open leg wound: With open wounds worsening on bilat legs Here with suspected sepsis, POA Previous wound cultures with MRSA and Pseudomonas, was not responding to doxy Sepsis improving -continue daptomycin and cefepime -follow Blood cultures -consult Vascular Cardiology for PAD (5) Peripheral arterial disease: MOd-severe calcific sclerosis bilat, multiple areas of stenoses and occlusion bilat LEs -consult Vascular Cardiology to see if needs intervention given non-healing wounds is on Xarelto but not ASA at this time -not on statin (6) CHF (congestive heart failure): Acute HFpEF in setting of possible sepsis Overload on CXR, BNP 3276, in setting of resp distress earlier in her stay Was dcd from fluids, not given lasix due to low BPs Now stable ECHO with preserved EF, elevated RSVP, severe TR (7) Atrial fibrillation: Chronic -have decreased metoprolol to 100mg due to hypotension and rates remain controlled -continue Xarelto, renally dosed (8) Hypertension: Metoprolol as above, holding amlodipine and lisinopril for hypotension (9) Diabetes mellitus, type II: With severe hypoglycemia the last 36 hours Pharmacy has significantly loosened her insulin regimen Poor po intake -continue to closely monitor (10) Hyponatremia: Na 130 on admission, now resolved, secondary to dehydration (11) DVT prophylaxis: Xarelto Dispo-remain on med-tele Have consulted palliative care for goals of care. Patient has been generally declining over the last month and has progressive dementia. Family would not like to escalate care further, but wants to continue current treatment DNR/DNI Admission and Anticipated Discharge Date Admission Date: October 19, 2019 Subjective Pt confused, doesn't really answer many of my questions. Yells out in pain when I take her socks off to look at her feet. Has been taking minimal po. Was very hypoglycemic yesterday and today, Pharmacy managing-discussed her insulin regimen with Pharmacy. Tele with Afib, rates 60-70s Review of Systems Review of Systems: All systems reviewed & are unremarkable except as noted in HPI & below Physical Exam Constitutional: average body habitus; no acute distress Eyes: + anicteric sclerae Neck: trachea midline, no thyromegaly Respiratory: normal respiratory effort, lungs clear to auscultation Cardiovascular: Rate/Rhythm: regular rate and + irregularly irregular Extremities: + edema (1+ pitting edema bilat legs) Chest (Breasts): Chest: normal inspection of chest Gastrointestinal (Abdomen): normal bowel sounds, soft, nontender, no hepa tosplenomegaly Musculoskeletal: Extremities: extremities normal to inspection; no cyanosis and no clubbing Skin: + ulcer (left ant stern 2x2cm shallow ulcer,right leg dressed and not removed) nonpalpable pulses DP,PT bilat Neurologic: moves all extremities and awake; no focal motor deficits Psychiatric: Orientation: alert; + not oriented x 3 Eye Contact: + poor eye contact Lymphatic: no lymphedema Results & Data ([facility]) Vital Signs (Past 12 Hours) Vital Signs Temp Pulse Pulse Resp BP Pulse Ox 10/21/19 15:16 75 10/21/19 15:05 35.8 C L 76 18 121/70 93 10/21/19 10:59 66 18 111/70 96 10/21/19 07:22 36.2 C L 66 18 105/58 L 96 Laboratory Results Labs reviewed PG Care Time/CCT Total # of Minutes Spent Total Time Spent with Patient: Total time spent is greater than 50% in coordination of care (as documented) at patient's floor/unit and/or counseling p atient: Coding Level of Care Code 34402 Subseq Hosp Care Lvl 3 Diagnoses Sepsis A41.9 Metabolic encephalopathy G93.41 Weakness R53.1 Open leg wound S81.809A Peripheral arterial disease I73.9 CHF (congestive heart failure) I50.43 Heart failure chronicity: acute on chronic Heart failure type: combined systolic and diastolic Atrial fibrillation I48.2 Atrial fibrillation type: chronic Hypertension I10 Hypertension type: essential hypertension Diabetes mellitus, type II E11.9 Hyponatremia E87.1 DVT prophylaxis Z29.9 (1) CHF (congestive heart failure) Heart failure chronicity: acute on chronic Heart failure type: combined systolic and diastolic Qualified Code(s): I50.43 - Acute on chronic combined systolic (congestive) and diastolic (congestive) heart failure (2) Atrial fibrillation Atrial fibrillation type: chronic Qualified Code(s): I48.2 - Chronic atrial fibrillation (3) Hypertension Hypertension type: essential hypertension Qualified Code(s): I10 - Essential (primary) hypertension
[2019-10-21] MEDS: CEFEPIME 2,000 MG in SYRINGE 7.5 ML IV SCH (19:08)
[2019-10-21] MEDS ORDERED: INSULIN GLARGINE SOLOSTAR 100 UNITS/ML 3 ML PEN SQ SCH (21:00)
[2019-10-22] MEDS: INSULIN ASPART 100 UNITS/ML 3 ML PEN SC SCH ×7 (00:17→23:51)
[2019-10-22] MEDS: LEVOTHYROXINE SODIUM 137 MCG TABLET PO SCH (06:54)
[2019-10-22 07:13] LABS: Creatinine Clr Calc Pharmacy 41.5 ml/min; Est GFR (African American) 80.6; Est GFR (Non-African American) 69.5
[2019-10-22 08:55] LABS: Basophils # (auto) 0.02 K/uL (0-0.2); Basophils % (auto) 0.3 %; Eosinophils # (auto) 0.15 K/uL (0-0.5); Eosinophils % (auto) 2.3 %; Hematocrit (blood only) 34.1 % (37-47); Hemoglobin 11.2 g/dL (12.0-16.0); Immature Granulocytes # (auto) 0.03 K/uL (0.00-0.02); Immature Granulocytes % (auto) 0.5 %; Lymphocytes # (auto) 0.94 K/uL (1.2-3.4); Lymphocytes % (auto) 14.3 %; Mean Corpuscular Hemoglobin 30.6 pg (25-34); Mean Corpuscular Hgb Conc 32.8 g/dL (32-36); Mean Corpuscular Volume 93.2 fL (80-100); Mean Platelet Volume 10.6 fL (7.4-10.4); Monocytes # (auto) 0.83 K/uL (0.11-0.59); Monocytes % (auto) 12.6 %; Neutrophils # (auto) 4.61 K/uL (1.4-6.5); Platelet Count 116 K/uL (130-400); RDW Coefficient of Variation 15.9 % (11.5-14.5); RDW Standard Deviation 53.4 fL (36.4-46.3); Red Blood Count 3.66 M/uL (4.2-5.4); White Blood Count 6.58 K/uL (4.8-10.8)
[2019-10-22 09:16] LABS: BUN Creatinine Ratio 33.2 (10-20); Calcium 8.8 mg/dl (8.5-10.1); Creatinine Clr Calc Pharmacy 42.1 ml/min; Est GFR (African American) 81.9; Est GFR (Non-African American) 70.7; Potassium 4.5 mmol/L (3.5-5.1)
[2019-10-22] MEDS: ACETAMINOPHEN 500 MG TAB PO SCH ×2 (09:29→20:35)
[2019-10-22] MEDS: CALCIUM 600MG + VIT D 400 IU TAB PO SCH ×2 (09:29→16:03)
--- NOTE | 2019-10-22 09:29 | Pharmacy Report ---
Pharmacy Glycemic Short Note 2 - Date of Service October 22, 2019 - Glycemic Short BSG Results (Last 24 hours): 10/21/19 10/21/19 10/21/19 07:20 11:39 16:35 Glucose 37 L* POC Glucose 195 H 67 L* 10/21/19 10/21/19 10/21/19 16:36 17:06 20:09 Glucose POC Glucose 70 71 183 H 10/21/19 10/22/19 10/22/19 23:31 04:05 06:31 Glucose 134 H POC Glucose 122 H 78 10/22/19 07:33 Glucose POC Glucose 127 H OUTPATIENT ANTIDIABETIC REGIMEN: * Lantus 25 units SQ BID * NPH 16 units SQ qAM (hold if BSG is < 90) * Novolog per SS at 07 and 1600 (0-12 units) * A1c = 8.8% on 09/12/18 (may be unreliable d/t anemia) ASSESSMENT: 10/22 * Barbara's BSGs have improved significantly; however, she has only required 2 units of insulin in the past 24 hours. One of these units causing hypoglycemia yesterday (195 mg/dL -> 67 mg/dL). * I did attempt to call [facility] for insulin doses/recent BSGs yesterday but did not hear back from them * Discussed case at [facility] today. Plan of care continues to be no escalation in care. * Goal for glycemic management is to prevent extreme hypo/hyperglycemia 10/21 * Barbara has had sustained hypoglycemia since yesterday afternoon * She received 30 units of basal insulin and 3 units of bolus insulin, last insulin administration ~noon yesterday * BSGs finally up above 180 mg/dL at lunch; however, I would have expected higher BSGs after no insulin coverage given and patient ate 100% of her breakfast. Nurse then reported that patient did not eat her lunch. * At [facility] today, discussed that patient will not be on comfort care but will not be escalating therapy. Will plan to be conservative with insulin dosing, in order to prevent sustained hypoglycemia in the setting of changing PO intake. 10/20 * 89 yr old T2DM female admitted with weakness and lower extremity wounds. * Pt is known to glycemic service from previous admissions. We have had challenges with her glycemic regimen in the past. She tends to be very sensitive to carbohydrate intake and requires a tighter carb ratio with breakfast. She is prone to severe hyperglycemia at lunchtime followed by hypoglycemia after large doses of correction. * I will continue home use of both Lantus and NPH with NPH given in the morning to aid in BSG spike around lunch/dinner. * I will utilize a looser CF and CR compared to previous admissions since NPH is on board. PLAN FOR INPATIENT GLYCEMIC CONTROL: * Basal insulin * Hold since patient has not required a dose in > 48 hours * Bolus insulin - loosen CF/CR and goal range * NovoLog per scale ACHS or Q6hrs while NPO * Goal Range: Low 120 mg/dL - High 200 mg/dL * Correction Factor: 45 mg/dL/unit * Nutritional / Prandial insulin per carb ratio of 1 unit per 20 grams CHO consumed PLAN FOR DISCHARGE: * Inpatient requirements have been significantly different from outpatient regimen. Will wait until plan of care is determined before providing more appropriate dosing instructions.
[2019-10-22] MEDS: CHOLECALCIFEROL 1,000 UNITS 25 MCG TAB PO SCH (09:30)
[2019-10-22] MEDS: FERROUS SULFATE 325 MG TAB PO SCH ×2 (09:31→16:03)
[2019-10-22] MEDS: DAPTOmycin 225 MG in SYRINGE 0 ML IV SCH (09:53)
[2019-10-22] MEDS: METOPROLOL SUCC 50MG EXT REL TAB PO SCH (12:24)
[2019-10-22] MEDS: FAMOTIDINE 20 MG TAB PO SCH (12:24)
--- NOTE | 2019-10-22 14:48 | Vascular Medicine Consultation ---
Date of Consultation October 22, 2019 Assessment & Plan (1) Peripheral arterial disease: 2. Diabetic, mixed vascular ulcerations 3. Cellulitis, sepsis 4. Altered mental status with advanced underlying dementia 5. Type 2 diabetes 6. Atrial fibrillation on anticoagulation Severe, chronic lower extremity peripheral arterial disease with notable occlusive tibial vessel disease. She has large ulcerations with associated systemic infection. Toe pressures reduced but not critical. With patient's dementia, comorbidities limited overall clinical benefit from attempts at revascularization and family has expressed wishes for no escalation in care. In that setting no plans for vascular intervention and would continue current wound care, antibiotics. Thank you for allowing us to participate in the care of this patient. Please contact with any questions. History of Present Illness Attending Physician: Sadny Bates MD History of Present Illness Ms. Berg is an 89-year-old woman with a history of type 2 diabetes, hypertension, dyslipidemia, diastolic heart failure, atrial fibrillation, pulmonary hypertension, stage III CKD and dementia who was admitted 2 days ago with increasing confusion. Patient has been treated by the wound clinic for the last 3 weeks due to new right heel ulceration. Vascular medicine consult in the setting of suspected PAD. Patient unable to provide any history this morning at time of exam. Being treated with broad-spectrum antibiotics for sepsis secondary to cellulitis from lower extremity ulcerations. Patient seen by palliative care. Family expressed wishes for no escalation in care. Plans to reassess goals of comfort measures only. Previously underwent lower extremity arterial duplex on 10/02/2019right HOLDEN/TBI 0.51/0.43 (65 mmHg), left HOLDEN/TBI 0.41/0.45 (67 mmHg). Right 50 to 74% proximal SFA stenosis, MOOSE, FAMILY PRESERVATION CASEWORKER occluded. Peroneal patent. Left 50 to 74% distal SFA stenosis, peroneal patent. MOOSE and FAMILY PRESERVATION CASEWORKER occluded. Allergies Allergy/AdvReac Type Severity Reaction Status Date / Time erythromycin base Allergy Unknown Unverified 10/19/19 16:14 Home Medications Home Medications Medication Instructions Recorded Confirmed Type Caltrate 600 plus D 1 tab PO BID 05/16/18 10/19/19 History Glucagon Emergency Kit (human) 1 ml IM UD PRN 09/03/18 10/19/19 History Lantus Solostar U-100 Insulin 25 unit SUBCUT BID 09/03/18 10/19/19 History amlodipine 5 mg PO QAM 09/03/18 10/19/19 History sodium chloride [Saline Mist] 2 spray INTRANASAL DAILY PRN 09/03/18 10/19/19 History ferrous sulfate 325 mg PO BID 10/13/18 10/19/19 History Novolin N NPH U-100 Insulin 16 unit SUBCUT QAM 02/26/19 10/19/19 History acetaminophen 1,000 mg PO BID 02/26/19 10/19/19 History cholecalciferol (vitamin D3) 2,000 unit PO QAM 02/26/19 10/19/19 History [Vitamin D3] insulin aspart U-100 [Novolog 0 unit SUBCUT BID 02/26/19 10/19/19 History Flexpen U-100 Insulin] metoprolol succinate 200 mg PO QAM 02/26/19 10/19/19 History levothyroxine 125 mcg tablet 137 mcg PO QAM tab 07/05/19 10/19/19 History famotidine 20 mg PO QAM 08/04/19 10/19/19 History Xarelto 20 mg PO DAILY@1600 09/19/19 10/19/19 History lisinopril 2.5 mg PO QAM 09/19/19 10/19/19 History doxycycline hyclate 100 mg tablet 100 mg PO bid 14 Days #28 tab 10/16/19 10/19/19 Rx nitrofurantoin 100 mg PO BID 10/16/19 10/19/19 History monohydrate/macrocrystals 100 mg capsule ciprofloxacin HCl 500 mg tablet 500 mg PO q12h #28 tab 10/21/19 Rx Patient History Medical History (Updated 10/22/19 @ 08:00 by Sandy Bates MD) Abnormal EKG (Acute) Abscess of bursa, left elbow Abscess, elbow Acute dehydration (Acute) Acute hyperglycemia (Acute) Acute kidney injury (Acute) Acute thoracic back pain (Acute) Altered mental status Altered mental status (Acute) Anemia Anemia (Acute) Atrial fibrillation (Chronic) Back pain Cardiomyopathy Cellulitis (Acute) CHF (congestive heart failure) (Acute) Chronic kidney disease with symptom management only, stage 3 (moderate) Cough (Acute) Diabetes (Chronic) Diabetes mellitus type 2 with complications Diarrhea DKA (diabetic ketoacidoses) (Acute) DKA (diabetic ketoacidosis) (Acute) DVT prophylaxis DVT prophylaxis DVT prophylaxis Edema Encounter for pre-operative examination Epistaxis (Acute) Fever (Acute) Goals of care, counseling/discussion HTN (hypertension) (Chronic) Hyperkalemia (Acute) Hypertension Hypothermia (Acute) Hypothyroidism Iron deficiency anemia Left ventricular dysfunction Macular degeneration (Chronic) Microcytic anemia (Acute) Mitral regurgitation Nondisplaced fracture of right femur Open leg wound Pubic ramus fracture (Acute) Pulmonary HTN Right-sided heart failure Sepsis Sepsis (Acute) SIRS (systemic inflammatory response syndrome) (Acute) Symptomatic anemia (Acute) Tricuspid regurgitation UTI (urinary tract infection) (Acute) UTI (urinary tract infection) Weakness (Acute) Yeast infection Surgical History Status post hip surgery Status post hysterectomy Family History Other DM type 2 (diabetes mellitus, type 2) Hypertension Social History Preferred Language: Senegalese Communication Ability: Impaired Visual Impairment: No Limitations Printed Circuit Board Pcb Draftsman Required: No Beliefs That Will Affect Care: None Current Living Situation: Halfway Current Living Situation Comment: resides at [facility] Feels Safe at Home: Yes Smoking Status: Former smoker Second Hand Exposure: No ; Hx Alcohol Use: No Hx Substance Use: No Review of Systems Review of Systems: Unobtainable due to cognitive status Physical Exam Constitutional: + altered mental status and + frail appearing Eyes: + anicteric sclerae Respiratory: normal respiratory effort; no respiratory distress Cardiovascular: Rate/Rhythm: + irregularly irregular Heart Sounds: no murmur Bilateral DP/PT pulses nonpalpable. Sluggish capillary refill. Bilateral wounds dressed. No surrounding erythema or induration. No drainage. Wound clinic pictures from yesterday reviewed Gastrointestinal (Abdomen): Inspection/Auscultation: abdomen not distended Percussion/Palpation: abdomen soft Results & Data Vital Signs (Past 12 Hours) Vital Signs Temp Pulse Resp BP Pulse Ox 10/22/19 11:01 97.5 F L 82 18 137/76 93 10/22/19 07:19 97.5 F L 76 20 132/77 95 10/22/19 03:46 97.7 F 69 20 102/69 95 PG Care Time/CCT Total # of Minutes Spent Total Time Spent with Patient: Total time spent is greater than 50% in coordination of care (as documented) at patient's floor/unit and/or counseling patient: Coding Level of Care Code 70402 Initial Inpt Care Lvl 3 Diagnoses Peripheral arterial disease I73.9
--- NOTE | 2019-10-22 15:32 | Palliative Care Progress Note ---
Date of Service October 22, 2019 Assessment & Plan (1) Goals of care, counseling/discussion: -Patient is about the same clinically today. Still crying out and moaning when she is touched or moved. -Spoke with patient's daughter, Karina, on phone. Plan for family meeting tomorrow at 10:45. -transportation solutions manager spoke with [facility] who state they could only accept patient back to their facility if it is with hospice. -Vascular is consulted for the severe PAD-- no procedure recommended given patric nagy's comorbidities and overall condition. They recommend to continue wound care and abx as indicated. If family does opt for comfort care and/or hospice care at [facility], could continue oral abx if patient able to tolerate. -Will discuss further plans and goals of care at family meeting tomorrow. (2) Weakness: (3) UTI (urinary tract infection): (4) Cellulitis: Subjective Patient continues to cry out when she is touched. She does wake up, but not able to participate in conversation. Despite patient crying out and moaning when she's touched or moved, she denies pain when asked. There was no family at bedside during my visit, but I did speak with patient's daughter Karina over the phone. Review of Systems Review of Systems: Full ROS difficult to obtain due to emotions and confusion. Patient did state "no" several times to pain. Physical Exam Constitutional: + ill appearing and + frail appearing Respiratory: normal respiratory effort, lungs clear to auscultation Auscultation: + diminished lung sounds Cardiovascular: Rate/Rhythm: regular rate and regular rhythm Extremities: + edema (BLE) Gastrointestinal (Abdomen): Inspection/Auscultation: normal bowel sounds Percussion/Palpation: abdomen soft Neurologic: moves all extremities, awake and + confused Psychiatric: Orientation: oriented to person; + not oriented to place and + not oriented to time Insight: + poor insight Results & Data Vital Signs (Past 12 Hours) Vital Signs Temp Pulse Pulse Resp BP Pulse Ox 10/22/19 14:56 83 10/22/19 11:01 36.4 C L 82 18 137/76 93 10/22/19 07:19 36.4 C L 76 20 132/77 95 10/22/19 03:46 36.5 C 69 20 102/69 95 Coding Level of Care Code 56305 Subseq Hosp Care Lvl 2 Diagnoses Goals of care, counseling/discussion Z71.89 Weakness R53.1 UTI (urinary tract infection) N39.0 Hematuria presence: without hematuria Urinary tract infection type: site unspecified Cellulitis L03.119 Laterality: unspecified laterality Site of cellulitis: extremity Site of cellulitis of extremity: lower extremity Time Spent (min) 25 Time Spent Midlevel 25 minutes with >50% of the time spent at bedside with patient and on phone with family discussing condition and GOC. (1) UTI (urinary tract infection) Hematuria presence: without hematuria Urinary tract infection type: site unspecified Qualified Code(s): N39.0 - Urinary tract infection, site not specified (2) Cellulitis Laterality: unspecified laterality Site of cellulitis: extremity Site of cellulitis of extremity: lower extremity Qualified Code(s): L03.119 - Cellulitis of unspecified part of limb
[2019-10-22] MEDS: RIVAROXABAN 15 MG TAB PO SCH (16:03)
[2019-10-22] MEDS: CEFEPIME 2,000 MG in SYRINGE 7.5 ML IV SCH (18:07)
--- NOTE | 2019-10-22 18:26 | Hospitalist Progress Note ---
Date of Service October 22, 2019 Assessment & Plan (1) Sepsis: Suspected Sepsis, POA Secondary to leg wounds treating as below Patient with history of chronic UTI and cellulitis with leg wounds, remains afebrile but was hypothermic initially On admission with tachypnea, with persistent hypothermia, hypotensive which is now all resolved Recent wound cultures with Pseudomonas and MRSA in leg wounds, recent UTI with Enterococcus but urine culture here now with lactobacillus Will continue treatment for wound infection as below Blood cultures no growth to date Resolved (2) Metabolic encephalopathy: Metabolic/Septic encephalopathy Secondary to leg wounds Waxing and waning still but overall much improved today (3) Weakness: Secondary to possible sepsis as above, but also has been progressively de clining over the last month or so both physically and mentally. PT/OT have not really been able to work with her due to altered mental status (4) Open leg wound: With open wounds worsening on bilat legs Here with suspected sepsis, POA, now improving Previous wound cultures with MRSA and Pseudomonas, was not responding to doxy With significant pain upon touching her lower extremities -continue daptomycin and cefepime, but could convert to Bactrim and Cipro upon discharge -follow Blood cultures -consult Vascular Cardiology for PAD appreciated-has severe PAD but no intervention recommended due to dementia and comorbidities with family desire for no escalation in care -Appreciate palliative care consultation-continue Roxanol as needed for pain (5) Peripheral arterial disease: MOd-severe calcific sclerosis bilat, multiple areas of stenoses and occlusion bilat LEs -consult Vascular Cardiology to see if needs intervention given non-healing wounds-appreciated, no intervention as above -Is on Xarelto -not on statin and likely not much benefit at this point (6) CHF (congestive heart failure): Acute HFpEF in setting of possible sepsis With evidence of volume overload on CXR, BNP 3276, in setting of resp distress earlier in her stay Was dcd from fluids, not given lasix due to low BPs Now stable, euvolemic ECHO with preserved EF, elevated RSVP, severe TR (7) Atrial fibrillation: Chronic -have decreased metoprolol to 100mg due to hypotension and rates remain controlled -continue Xarelto, renally dosed (8) Hypertension: Metoprolol dose decreased as above for hypotension Blood pressures are now in the normal range -Continue holding amlodipine and lisinopril (9) Diabetes mellitus, type II: With severe hypoglycemia here which is finally improving after loosening insulin regimen Her p.o. intake is now improving on the evening of 10/22 Pharmacy is managing -continue to closely monitor (10) Hyponatremia: Na 130 on admission, now improved but slightly worse today at 132, secondary to dehydration No IV fluids to be given as this resulted in significant respiratory distress (11) Thrombocytopenia: Platelets mildly low at 116 and stable from previous Could be secondary to his previous sepsis -Follow CBC (12) DVT prophylaxis: Gilmerrelto Dispo-remain on med-tele Have consulted palliative care for goals of care. Patient has been generally declining over the last month and has progressive dementia. Family would not like to escalate care further, but wants to continue current treatment A family meeting has been arranged for tomorrow at 1045 to determine whether she will leave with hospice back to her personal alf versus attempts to get to rehab She should be stable for discharge in the next 1 to 2 days on oral antibiotics DNR/DNI Admission and Anticipated Discharge Date Admission Date: October 19, 2019 Anticipated date of discharge: 10/24/19 Subjective Patient was woken from sleep and says she is feeling better. Denies pain in the legs, denies chest pain or shortness of breath. Nursing reports that she ate a lot more this evening and her blood sugar is coming up. I discussed the case with palliative care. Telemetry with atrial fibrillation and PVCs with rates in the 60s to 80s Review of Systems Review of Systems: All systems reviewed & are unremarkable except as noted in HPI & below Physical Exam Constitutional: average body habitus; no acute distress Eyes: + anicteric sclerae Neck: trachea midline, no thyromegaly Respiratory: normal respiratory effort, lungs clear to auscultation Cardiovascular: Rate/Rhythm: regular rate and + irregularly irregular Extremities: + edema (1+ pitting edema bilat legs) Chest (Breasts): Chest: normal inspection of chest Gastrointestinal (Abdomen): normal bowel sounds, soft, nontender, no hepatosplenomegaly Musculoskeletal: Extremities: no cyanosis and no clubbing Skin: + ulcer (left ant stern 2x2cm shallow ulcer,right leg dressed and not removed) Neurologic: moves all extremities and awake; no focal motor deficits Psychiatric: Orientation: alert, oriented to person and cooperative; + not oriented to place (Says I'm at [facility]) Lymphatic: no lymphedema Results & Data ([facility]) Vital Signs (Past 12 Hours) Vital Signs Temp Pulse Pulse Resp BP Pulse Ox 10/22/19 15:25 36.3 C L 78 18 137/77 90 10/22/19 14:56 83 10/22/19 11:01 36.4 C L 82 18 137/76 93 10/22/19 07:19 36.4 C L 76 20 132/77 95 Laboratory Results 10/22/19 10/22/19 10/22/19 Range/Units 11:40 07:33 06:31 WBC (4.8-10.8) K/uL RBC (4.2-5.4) M/uL Hgb (12.0-16.0) g/dL Hct (37-47) % MCV (80-100) fL MCH (25-34) pg MCHC (32-36) g/dL RDW Std Deviation (36.4-46.3) fL RDW Coeff of Chris (11.5-14.5) % Plt Count (130-400) K/uL MPV (7.4-10.4) fL Immature Gran % (Auto) % Neut % (Auto) % Lymph % (Auto) % [place] % (Auto) % Eos % (Auto) % Baso % (Auto) % Immature Gran # (Auto) (0.00-0.02) K/uL Neut # (Auto) (1.4-6.5) K/uL Lymph # (Auto) (1.2-3.4) K/uL [place] # (Auto) (0.11-0.59) K/uL Eos # (Auto) (0-0.5) K/uL Baso # (Auto) (0-0.2) K/uL Sodium 132 L (136-145) mmol/L Potassium 4.5 D (3.5-5.1) mmol/L Chloride 104 (98-107) mmol/L Carbon Dioxide 22 (21-32) mmol/L Anion Gap 6.0 (3-11) BUN 25 H (7-18) mg/dl Creatinine 0.75 (0.6-1.2) mg/dl Est Cr Clr Drug Dosing 42.1 ml/min Est GFR ( Amer) 81.9 Est GFR (Non-Af Amer) 70.7 BUN/Creatinine Ratio 33.2 H (10-20) Glucose 134 H (70-99) mg/dl POC Glucose 133 H 127 H (70-99) mg/dl Calcium 8.8 (8.5-10.1) mg/dl 10/22/19 10/22/19 10/22/19 Range/Units 06:31 06:28 04:05 WBC 6.58 (4.8-10.8) K/uL RBC 3.66 L (4.2-5.4) M/uL Hgb 11.2 L (12.0-16.0) g/dL Hct 34.1 L (37-47) % MCV 93.2 (80-100) fL MCH 30.6 (25-34) pg MCHC 32.8 (32-36) g/dL RDW Std Deviation 53.4 H (36.4-46.3) fL RDW Coeff of Chris 15.9 H (11.5-14.5) % Plt Count 116 L (130-400) K/uL MPV 10.6 H (7.4-10.4) fL Immature Gran % (Auto) 0.5 % Neut % (Auto) 70.0 % Lymph % (Auto) 14.3 % [place] % (Auto) 12.6 % Eos % (Auto) 2.3 % Baso % (Auto) 0.3 % Immature Gran # (Auto) 0.03 H (0.00-0.02) K/uL Neut # (Auto) 4.61 (1.4-6.5) K/uL Lymph # (Auto) 0.94 L (1.2-3.4) K/uL [place] # (Auto) 0.83 H (0.11-0.59) K/uL Eos # (Auto) 0.15 (0-0.5) K/uL Baso # (Auto) 0.02 (0-0.2) K/uL Sodium (136-145) mmol/L Potassium (3.5-5.1) mmol/L Chloride (98-107) mmol/L Carbon Dioxide (21-32) mmol/L Anion Gap (3-11) BUN (7-18) mg/dl Creatinine 0.76 (0.6-1.2) mg/dl Est Cr Clr Drug Dosing 41.5 ml/min Est GFR ( Amer) 80.6 Est GFR (Non-Af Amer) 69.5 BUN/Creatinine Ratio (10-20) Glucose (70-99) mg/dl POC Glucose 78 (70-99) mg/dl Calcium (8.5-10.1) mg/dl 10/21/19 10/21/19 Range/Units 23:31 20:09 WBC (4.8-10.8) K/uL RBC (4.2-5.4) M/uL Hgb (12.0-16.0) g/dL Hct (37-47) % MCV (80-100) fL MCH (25-34) pg MCHC (32-36) g/dL RDW Std Deviation (36.4-46.3) fL RDW Coeff of Chris (11.5-14.5) % Plt Count (130-400) K/uL MPV (7.4-10.4) fL Immature Gran % (Auto) % Neut % (Auto) % Lymph % (Auto) % [place] % (Auto) % Eos % (Auto) % Baso % (Auto) % Immature Gran # (Auto) (0.00-0.02) K/uL Neut # (Auto) (1.4-6.5) K/uL Lymph # (Auto) (1.2-3.4) K/uL [place] # (Auto) (0.11-0.59) K/uL Eos # (Auto) (0-0.5) K/uL Baso # (Auto) (0-0.2) K/uL Sodium (136-145) mmol/L Potassium (3.5-5.1) mmol/L Chloride (98-107) mmol/L Carbon Dioxide (21-32) mmol/L Anion Gap (3-11) BUN (7-18) mg/dl Creatinine (0.6-1.2) mg/dl Est Cr Clr Drug Dosing ml/min Est GFR ( Amer) Est GFR (Non-Af Amer) BUN/Creatinine Ratio (10-20) Glucose (70-99) mg/dl POC Glucose 122 H 183 H (70-99) mg/dl Calcium (8.5-10.1) mg/dl PG Care Time/CCT Total # of Minutes Spent Total Time Spent with Patient: Total time spent is greater than 50% in coordination of care (as documented) at patient's floor/unit and/or counseling patient: Coding Level of Care Code 36791 Subseq Hosp Care Lvl 3 Diagnoses Sepsis A41.9 Metabolic encephalopathy G93.41 Weakness R53.1 Open leg wound S81.809A Peripheral arterial disease I73.9 CHF (congestive heart failure) I50.43 Heart failure chronicity: acute on chronic Heart failure type: combined systolic and diastolic Atrial fibrillation I48.2 Atrial fibrillation type: chronic Hypertension I10 Hypertension type: essential hypertension Diabetes mellitus, type II E11.9 Hyponatremia E87.1 Thrombocytopenia D69.6 DVT prophylaxis Z29.9 (1) CHF (congestive heart failure) Heart failure chronicity: acute on chronic Heart failure type: combined systolic and diastolic Qualified Code(s): I50.43 - Acute on chronic combined systolic (congestive) and diastolic (congestive) heart failure (2) Atrial fibrillation Atrial fibrillation type: chronic Qualified Code(s): I48.2 - Chronic atrial fibrillation (3) Hypertension Hypertension type: essential hypertension Qualified Code(s): I10 - Essential (primary) hypertension
[2019-10-23] MEDS: INSULIN ASPART 100 UNITS/ML 3 ML PEN SC SCH ×5 (04:01→21:27)
[2019-10-23] MEDS: LEVOTHYROXINE SODIUM 137 MCG TABLET PO SCH (06:20)
[2019-10-23 06:35] LABS: Basophils # (auto) 0.01 K/uL (0-0.2); Basophils % (auto) 0.1 %; Eosinophils # (auto) 0.25 K/uL (0-0.5); Eosinophils % (auto) 3.6 %; Hematocrit (blood only) 34.9 % (37-47); Hemoglobin 11.8 g/dL (12.0-16.0); Immature Granulocytes # (auto) 0.05 K/uL (0.00-0.02); Immature Granulocytes % (auto) 0.7 %; Lymphocytes # (auto) 1.21 K/uL (1.2-3.4); Lymphocytes % (auto) 17.5 %; Mean Corpuscular Hgb Conc 33.8 g/dL (32-36); Mean Corpuscular Volume 91.6 fL (80-100); Mean Platelet Volume 9.6 fL (7.4-10.4); Monocytes # (auto) 0.78 K/uL (0.11-0.59); Monocytes % (auto) 11.3 %; Neutrophils # (auto) 4.63 K/uL (1.4-6.5); Neutrophils % (auto) 66.8 %; Platelet Count 131 K/uL (130-400); RDW Coefficient of Variation 15.8 % (11.5-14.5); Red Blood Count 3.81 M/uL (4.2-5.4); White Blood Count 6.93 K/uL (4.8-10.8)
[2019-10-23 07:03] LABS: BUN Creatinine Ratio 26.2 (10-20); Calcium 8.6 mg/dl (8.5-10.1); Creatinine Clr Calc Pharmacy 46.4 ml/min; Est GFR (African American) 89.9; Est GFR (Non-African American) 77.6; Potassium 4.5 mmol/L (3.5-5.1)
[2019-10-23] MEDS: DAPTOmycin 225 MG in SYRINGE 0 ML IV SCH (09:07)
[2019-10-23] MEDS: FAMOTIDINE 20 MG TAB PO SCH (09:07)
[2019-10-23] MEDS: CHOLECALCIFEROL 1,000 UNITS 25 MCG TAB PO SCH (09:08)
[2019-10-23] MEDS: METOPROLOL SUCC 50MG EXT REL TAB PO SCH (09:08)
[2019-10-23] MEDS: FERROUS SULFATE 325 MG TAB PO SCH ×2 (09:08→16:04)
[2019-10-23] MEDS: ACETAMINOPHEN 500 MG TAB PO SCH ×2 (09:09→21:26)
[2019-10-23] MEDS: CALCIUM 600MG + VIT D 400 IU TAB PO SCH ×2 (09:10→16:04)
--- NOTE | 2019-10-23 13:03 | Palliative Care Progress Note ---
Date of Service October 23, 2019 Assessment & Plan (1) Goals of care, counseling/discussion: -Patient's mental status and condition have drastically improved from yesterday morning. She is alert and awake. Sitting in chair and was able to work with PT/OT. Eating and drinking without issue. -Family meeting held with patient's daughter Karina, two sons Jayy and Manny, and [id number] Stephanie. -Family is pleased to see patient's progress and are wanting to continue abx therapy. Plan will be to switch to oral medications upon discharge. -Given that patient has markedly improved, plan is to hopefully return to [facility] if they are able to accept her back. Could also have home health continue to see her there for therapy. If EV unable to accept her back, will need to look at SNF for short-term rehab. -As far as hospice, family is not ready to say that they would not want patient to return to the hospital if needed. Also, as far as her condition, it is difficult to say at this point if her prognosis is six months or less. Prior to this week prior to coming to the hospital, patient was at about 5-6a on FAST scale, but had been declining since [place] as far as mental status and increased weakness. It is hard to say if she is going to stabilize/improve back to baseline, or continue to decline. Family is aware that if/when patient does decline, they are welcome to transition to hospice. Patient does also have other comorbidities that are advanced and further complicate her overall condition. -For now, waiting to hear from personal shelter on whether they can accept her back and we will go from there. Family is in agreement . Case management and physician updated. -POLST form explained and completed as follows: DNR, limited additional interventions, abx with comfort as the goal, trial of IVF but no tube feedings. (2) Weakness: (3) UTI (urinary tract infection): (4) Cellulitis: Subjective Patient has made a drastic improvement today. She is alert, oriented to person and place. Calm, cooperative. Sitting up in chair this morning. Was able to eat dinner last night and several meals today. Family meeting held at 1045 with patient's children. See A&P. Review of Systems Review of Systems: no pain no SOB no N/V no discomfort Physical Exam Constitutional: + ill appearing Respiratory: normal respiratory effort, lungs clear to auscultation Auscultation: + diminished lung sounds Cardiovascular: Rate/Rhythm: regular rate and regular rhythm Extremities: + edema (BLE) Gastrointestinal (Abdomen): Inspection/Auscultation: normal bowel sounds Percussion/Palpation: abdomen soft Neurologic: moves all extremities, awake and + confused Psychiatric: Orientation: alert (much more alert today), oriented to person, oriented to place and oriented to time Insight: + poor insight Results & Data Vital Signs (Past 12 Hours) Vital Signs Temp Pulse Pulse Resp BP Pulse Ox 10/23/19 12:10 36.4 C L 75 18 122/77 95 10/23/19 08:00 36.3 C L 84 16 112/63 90 10/23/19 04:00 36.4 C L 72 20 132/80 93 Coding Level of Care Code 04505 Subseq Hosp Care Lvl 3 Diagnoses Goals of care, counseling/discussion Z71.89 Weakness R53.1 UTI (urinary tract infection) N39.0 Hematuria presence: without hematuria Urinary tract infection type: site unspecified Cellulitis L03.119 Laterality: unspecified laterality Site of cellulitis: extremity Site of cellulitis of extremity: lower extremity Time Spent (min) 70 Time Spent Midlevel 70 minutes with >50% of the time spent at bedside with patient and family discussing condition, goals, and discharge planning. (1) UTI (urinary tract infection) Hematuria presence: without hematuria Urinary tract infection type: site unspecified Qualified Code(s): N39.0 - Urinary tract infection, site not specified (2) Cellulitis Laterality: unspecified laterality Site of cellulitis: extremity Site of cellulitis of extremity: lower extremity Qualified Code(s): L03.119 - Cellulitis of unspecified part of limb
--- NOTE | 2019-10-23 14:14 | Pharmacy Report ---
Pharmacy Glycemic Short Note 2 - Date of Service October 23, 2019 - Glycemic Short BSG Results (Last 24 hours): 10/22/19 10/22/19 10/22/19 16:35 16:36 20:33 Glucose POC Glucose 313 H* 287 H 376 H* 10/22/19 10/22/19 10/23/19 20:35 23:45 03:50 Glucose POC Glucose 372 H* 255 H 152 H 10/23/19 10/23/19 10/23/19 05:44 07:30 11:37 Glucose 137 H POC Glucose 137 H 303 H* OUTPATIENT ANTIDIABETIC REGIMEN: * Lantus 25 units SQ BID * NPH 16 units SQ qAM (hold if BSG is < 90) * Novolog per SS at 07 and 1600 (0-12 units) * A1c = 8.8% on 09/12/18 (may be unreliable d/t anemia) ASSESSMENT: 10/23 * BSGs elevated yesterday evening, however fasting down to 137 with overnight checks * Patient has not received any basal insulin x 48 hrs- will give conservative 5 units of lantus at dinner if BSGs remain >300 * Lunch BSG 303, did tighten carb ratio to 15, will continue to monitor if needs loosened again * Per discussion with provider okay with BSGs in 200s. 10/22 * Barbara's BSGs have improved significantly; however, she has only required 2 units of insulin in the past 24 hours. One of these units causing hypoglycemia yesterday (195 mg/dL -> 67 mg/dL). * I did attempt to call [facility] for insulin doses/recent BSGs yesterday but did not hear back from them * Discussed case at [facility] today. Plan of care continues to be no escalation in care. * Goal for glycemic management is to prevent extreme hypo/hyperglycemia 10/21 * Barbara has had sustained hypoglycemia since yesterday afternoon * She received 30 units of basal insulin and 3 units of bolus insulin, last insulin administration ~noon yesterday * BSGs finally up above 180 mg/dL at lunch; however, I would have expected higher BSGs after no insulin coverage given and patient ate 100% of her breakfast. Nurse then reported that patient did not eat her lunch. * At [facility] today, discussed that patient will not be on comfort care but will not be escalating therapy. Will plan to be conservative with insulin dosing, in order to prevent sustained hypoglycemia in the setting of changing PO intake. 10/20 * 89 yr old T2DM female admitted with weakness and lower extremity wounds. * Pt is known to glycemic service from previous admissions. We have had challenges with her glycemic regimen in the past. She tends to be very sensitive to carbohydrate intake and requires a tighter carb ratio with breakfast. She is prone to severe hyperglycemia at lunchtime followed by hypoglycemia after large doses of correction. * I will continue home use of both Lantus and NPH with NPH given in the morning to aid in BSG spike around lunch/dinner. * I will utilize a looser CF and CR compared to previous admissions since NPH is on board. PLAN FOR INPATIENT GLYCEMIC CONTROL: * Basal insulin * Hold since patient has not required a dose in > 48 hours * Bolus insulin - loosen CF/CR and goal range * NovoLog per scale ACHS or Q6hrs while NPO * Goal Range: Low 120 mg/dL - High 200 mg/dL * Correction Factor: 45 mg/dL/unit * Nutritional / Prandial insulin per carb ratio of 1 unit per 20 grams CHO consumed PLAN FOR DISCHARGE: * Inpatient requirements have been significantly different from outpatient regimen. Will wait until plan of care is determined before providing more appropriate dosing instructions.
[2019-10-23] MEDS: ACETAMINOPHEN 325 MG TAB PO PRN (15:58)
[2019-10-23] MEDS: RIVAROXABAN 15 MG TAB PO SCH (16:04)
[2019-10-23] MEDS ORDERED: INSULIN GLARGINE SOLOSTAR 100 UNITS/ML 3 ML PEN SQ SCH (16:30)
[2019-10-23] MEDS ORDERED: INSULIN GLARGINE SOLOSTAR 100 UNITS/ML 3 ML PEN SQ ONE ×2 (16:30→20:45)
[2019-10-23] MEDS: CEFEPIME 2,000 MG in SYRINGE 7.5 ML IV SCH (19:34)
--- NOTE | 2019-10-23 22:09 | Hospitalist Progress Note ---
Date of Service October 23, 2019 Assessment & Plan (1) Sepsis: Suspected Sepsis, POA Secondary to infected leg wounds and cellulitis treating as below-now resolved On admission with tachypnea, with persistent hypothermia, hypotensive which is now all resolved Recent wound cultures with Pseudomonas and MRSA in leg wounds, recent UTI with Enterococcus but urine culture here now with lactobacillus Will continue treatment for wound infection as below Blood cultures no growth to date Overall much improved (2) Metabolic encephalopathy: Metabolic/Septic encephalopathy Secondary to wound infection and likely some contribution from the severe hyp oglycemia she had earlier in the admission Significantly improved now-is now out of bed, eating meals, conversing (3) Weakness: Secondary to possible sepsis as above, but also has been progressively declining over the last month or so both physically and mentally. PT/OT was finally able to work with her today-she ambulated 5 feet PT/OT recommending group home facility, but family would much prefer her go back to her personal custodial with home health if they will accept her back (4) Open leg wound: With open wounds worsening on bilat legs Here with suspected sepsis, POA, now much improved as above Previous wound cultures with MRSA and Pseudomonas, was not responding to doxy as an outpatient Remains with significant pain upon touching her lower extremities -continue daptomycin and cefepime, but could convert to Bactrim and Cipro upon discharge -follow Blood cultures-no growth to date -consult Vascular Cardiology for PAD appreciated-has severe PAD but no intervention recommended due to dementia and comorbidities with family desire for no escalation in care-discussed with granddaughter at the bedside -Appreciate palliative care consultation-continue Roxanol as needed for pain (5) Peripheral arterial disease: MOd-severe calcific sclerosis bilat, multiple areas of stenoses and occlusion bilat LEs -consult Vascular Cardiology to see if needs intervention given non-healing wounds-appreciated, no intervention as above -Is on Xarelto -not on statin and likely not much benefit at this point (6) CHF (congestive heart failure): Acute on chronic HFpEF in setting of possible sepsis With evidence of volume overload on CXR, BNP 3276, in setting of resp distress earlier in her stay Was dcd from fluids, not given lasix due to low BPs Now stable, euvolemic ECHO with preserved EF, elevated RSVP, severe TR (7) Atrial fibrillation: Chronic -have decreased metoprolol to 100mg due to hypotension and rates remain controlled -continue Xarelto, renally dosed (8) Hypertension: Metoprolol dose decreased as above for hypotension Blood pressures are now in the normal range -Continue holding amlodipine and lisinopril (9) Diabetes mellitus, type II: With severe hypoglycemia here which is finally improving after loosening insulin regimen Her p.o. intake is now improving on the evening of 10/22 Now with hyperglycemia in the 300s again as she is eating more Pharmacy is managing and will add back some basal insulin today -continue to closely monitor (10) Hyponatremia: Na 130 on admission, now improved but slightly worse today at 131, secondary to poor p.o. intake which is starting to improve No IV fluids to be given as this resulted in significant respiratory distress -Follow BMP (11) Thrombocytopenia: Platelets mildly low in the 1 teens but now improved to 131 Could be secondary to his previous sepsis -Follow CBC (12) DVT prophylaxis: Xarelto Dispo-remain on med-[employer] but can transfer to medical floor tomorrow Have consulted palliative care for goals of care. Patient has been generally declining over the last month and has progressive dementia. Family would not like to escalate care further, but wants to continue current treatment Given her significant improvement in the last 24 hours, family is hopeful to get her back to the personal custodial with home health if they will accept her back. Otherwise, she can be discharged to group home facility likely tomorrow on oral antibiotics DNR/DNI Admission and Anticipated Discharge Date Admission Date: October 19, 2019 Anticipated date of discharge: 10/24/19 Subjective Patient is overall much improved today. She was out of bed with one assist to the chair and has been eating. She reports some pain in the legs at times which is relieved with Tylenol. She denies chest pains or shortness of breath. She is conversing more. Her blood sugars are now in the 300s since she has been eating more. I discussed her case with palliative care and with pharmacy managing her glucose. I discussed her case with her granddaughter at the bedside. Telemetry with atrial fibrillation with rates in the 70s to 80s Review of Systems Review of Systems: All systems reviewed & are unremarkable except as noted in HPI & below Physical Exam Constitutional: average body habitus; no acute distress Eyes: + anicteric sclerae Neck: trachea midline, no thyromegaly Respiratory: normal respiratory effort, lungs clear to auscultation Cardiovascular: Rate/Rhythm: regular rate and + irregularly irregular Extremities: + edema (1+ pitting edema bilat legs) Chest (Breasts): Chest: normal inspection of chest Gastrointestinal (Abdomen): normal bowel sounds, soft, nontender, no hepatosplenomegaly Musculoskeletal: Extremities: no cyanosis and no clubbing Skin: + ulcer (left ant stern 2x2cm shallow ulcer,right leg dressed and not removed) Neurologic: moves all extremities and awake; no focal motor deficits Psychiatric: Orientation: alert, oriented to person, oriented to place and cooperative Eye Contact: good eye contact Lymphatic: no lymphedema Results & Data ([facility]) Vital Signs (Past 12 Hours) Vital Signs Temp Pulse Pulse Pulse Resp BP BP 10/23/19 19:30 36.7 C 56 L 16 127/71 10/23/19 16:56 75 10/23/19 15:17 36.6 C 89 18 128/75 10/23/19 12:10 36.4 C L 75 18 122/77 Pulse Ox 10/23/19 19:30 94 10/23/19 16:56 10/23/19 15:17 90 10/23/19 12:10 95 Laboratory Results 10/23/19 10/23/19 10/23/19 Range/Units 20:12 20:11 20:10 WBC (4.8-10.8) K/uL RBC (4.2-5.4) M/uL Hgb (12.0-16.0) g/dL Hct (37-47) % MCV (80-100) fL MCH (25-34) pg MCHC (32-36) g/dL RDW Std Deviation (36.4-46.3) fL RDW Coeff of Chris (11.5-14.5) % Plt Count (130-400) K/uL MPV (7.4-10.4) fL Immature Gran % (Auto) % Neut % (Auto) % Lymph % (Auto) % Reagan % (Auto) % Eos % (Auto) % Baso % (Auto) % Immature Gran # (Auto) (0.00-0.02) K/uL Neut # (Auto) (1.4-6.5) K/uL Lymph # (Auto) (1.2-3.4) K/uL Reagan # (Auto) (0.11-0.59) K/uL Eos # (Auto) (0-0.5) K/uL Baso # (Auto) (0-0.2) K/uL Sodium (136-145) mmol/L Potassium (3.5-5.1) mmol/L Chloride (98-107) mmol/L Carbon Dioxide (21-32) mmol/L Anion Gap (3-11) BUN (7-18) mg/dl Creatinine (0.6-1.2) mg/dl Est Cr Clr Drug Dosing ml/min Est GFR ( Amer) Est GFR (Non-Af Amer) BUN/Creatinine Ratio (10-20) Glucose (70-99) mg/dl POC Glucose 374 H* 337 H* 428 H* (70-99) mg/dl Calcium (8.5-10.1) mg/dl 10/23/19 10/23/19 10/23/19 Range/Units 16:41 16:40 11:37 WBC (4.8-10.8) K/uL RBC (4.2-5.4) M/uL Hgb (12.0-16.0) g/dL Hct (37-47) % MCV (80-100) fL MCH (25-34) pg MCHC (32-36) g/dL RDW Std Deviation (36.4-46.3) fL RDW Coeff of Chris (11.5-14.5) % Plt Count (130-400) K/uL MPV (7.4-10.4) fL Immature Gran % (Auto) % Neut % (Auto) % Lymph % (Auto) % Reagan % (Auto) % Eos % (Auto) % Baso % (Auto) % Immature Gran # (Auto) (0.00-0.02) K/uL Neut # (Auto) (1.4-6.5) K/uL Lymph # (Auto) (1.2-3.4) K/uL Reagan # (Auto) (0.11-0.59) K/uL Eos # (Auto) (0-0.5) K/uL Baso # (Auto) (0-0.2) K/uL Sodium (136-145) mmol/L Potassium (3.5-5.1) mmol/L Chloride (98-107) mmol/L Carbon Dioxide (21-32) mmol/L Anion Gap (3-11) BUN (7-18) mg/dl Creatinine (0.6-1.2) mg/dl Est Cr Clr Drug Dosing ml/min Est GFR ( Amer) Est GFR (Non-Af Amer) BUN/Creatinine Ratio (10-20) Glucose (70-99) mg/dl POC Glucose 385 H* 389 H* 303 H* (70-99) mg/dl Calcium (8.5-10.1) mg/dl 10/23/19 10/23/19 10/23/19 Range/Units 07:30 05:44 05:44 WBC 6.93 (4.8-10.8) K/uL RBC 3.81 L (4.2-5.4) M/uL Hgb 11.8 L (12.0-16.0) g/dL Hct 34.9 L (37-47) % MCV 91.6 (80-100) fL MCH 31.0 (25-34) pg MCHC 33.8 (32-36) g/dL RDW Std Deviation 52.0 H (36.4-46.3) fL RDW Coeff of Chris 15.8 H (11.5-14.5) % Plt Count 131 (130-400) K/uL MPV 9.6 (7.4-10.4) fL Immature Gran % (Auto) 0.7 % Neut % (Auto) 66.8 % Lymph % (Auto) 17.5 % Reagan % (Auto) 11.3 % Eos % (Auto) 3.6 % Baso % (Auto) 0.1 % Immature Gran # (Auto) 0.05 H (0.00-0.02) K/uL Neut # (Auto) 4.63 (1.4-6.5) K/uL Lymph # (Auto) 1.21 (1.2-3.4) K/uL Reagan # (Auto) 0.78 H (0.11-0.59) K/uL Eos # (Auto) 0.25 (0-0.5) K/uL Baso # (Auto) 0.01 (0-0.2) K/uL Sodium 131 L (136-145) mmol/L Potassium 4.5 (3.5-5.1) mmol/L Chloride 99 (98-107) mmol/L Carbon Dioxide 26 (21-32) mmol/L Anion Gap 6.0 (3-11) BUN 18 (7-18) mg/dl Creatinine 0.68 (0.6-1.2) mg/dl Est Cr Clr Drug Dosing 46.4 ml/min Est GFR ( Amer) 89.9 Est GFR (Non-Af Amer) 77.6 BUN/Creatinine Ratio 26.2 H (10-20) Glucose 137 H (70-99) mg/dl POC Glucose 137 H (70-99) mg/dl Calcium 8.6 (8.5-10.1) mg/dl 10/23/19 10/22/19 Range/Units 03:50 23:45 WBC (4.8-10.8) K/uL RBC (4.2-5.4) M/uL Hgb (12.0-16.0) g/dL Hct (37-47) % MCV (80-100) fL MCH (25-34) pg MCHC (32-36) g/dL RDW Std Deviation (36.4-46.3) fL RDW Coeff of Chris (11.5-14.5) % Plt Count (130-400) K/uL MPV (7.4-10.4) fL Immature Gran % (Auto) % Neut % (Auto) % Lymph % (Auto) % Reagan % (Auto) % Eos % (Auto) % Baso % (Auto) % Immature Gran # (Auto) (0.00-0.02) K/uL Neut # (Auto) (1.4-6.5) K/uL Lymph # (Auto) (1.2-3.4) K/uL Reagan # (Auto) (0.11-0.59) K/uL Eos # (Auto) (0-0.5) K/uL Baso # (Auto) (0-0.2) K/uL Sodium (136-145) mmol/L Potassium (3.5-5.1) mmol/L Chloride (98-107) mmol/L Carbon Dioxide (21-32) mmol/L Anion Gap (3-11) BUN (7-18) mg/dl Creatinine (0.6-1.2) mg/dl Est Cr Clr Drug Dosing ml/min Est GFR ( Amer) Est GFR (Non-Af Amer) BUN/Creatinine Ratio (10-20) Glucose (70-99) mg/dl POC Glucose 152 H 255 H (70-99) mg/dl Calcium (8.5-10.1) mg/dl Blood cultures no growth PG Care Time/CCT Total # of Minutes Spent Total Time Spent with Patient: Total time spent is greater than 50% in coordina tion of care (as documented) at patient's floor/unit and/or counseling patient: Coding Level of Care Code 15993 Subseq Hosp Care Lvl 2 Diagnoses Sepsis A41.9 Metabolic encephalopathy G93.41 Weakness R53.1 Open leg wound S81.809A Peripheral arterial disease I73.9 CHF (congestive heart failure) I50.43 Heart failure chronicity: acute on chronic Heart failure type: combined systolic and diastolic Atrial fibrillation I48.2 Atrial fibrillation type: chronic Hypertension I10 Hypertension type: essential hypertension Diabetes mellitus, type II E11.9 Hyponatremia E87.1 Thrombocytopenia D69.6 DVT prophylaxis Z29.9 (1) CHF (congestive heart failure) Heart failure chronicity: acute on chronic Heart failure type: combined systolic and diastolic Qualified Code(s): I50.43 - Acute on chronic combined systolic (congestive) and diastolic (congestive) heart failure (2) Atrial fibrillation Atrial fibrillation type: chronic Qualified Code(s): I48.2 - Chronic atrial fibrillation (3) Hypertension Hypertension type: essential hypertension Qualified Code(s): I10 - Essential (primary) hypertension
[2019-10-24] MEDS ORDERED: INSULIN ASPART 100 UNITS/ML 3 ML PEN SC ONE (02:00)
[2019-10-24] MEDS: LEVOTHYROXINE SODIUM 137 MCG TABLET PO SCH (05:49)
[2019-10-24 06:29] LABS: Basophils # (auto) 0.03 K/uL (0-0.2); Basophils % (auto) 0.5 %; Eosinophils # (auto) 0.31 K/uL (0-0.5); Eosinophils % (auto) 4.7 %; Hematocrit (blood only) 34.3 % (37-47); Hemoglobin 11.5 g/dL (12.0-16.0); Immature Granulocytes # (auto) 0.05 K/uL (0.00-0.02); Immature Granulocytes % (auto) 0.8 %; Lymphocytes # (auto) 1.43 K/uL (1.2-3.4); Lymphocytes % (auto) 21.8 %; Mean Corpuscular Hemoglobin 30.8 pg (25-34); Mean Corpuscular Hgb Conc 33.5 g/dL (32-36); Mean Platelet Volume 9.7 fL (7.4-10.4); Monocytes # (auto) 0.82 K/uL (0.11-0.59); Monocytes % (auto) 12.5 %; Neutrophils # (auto) 3.91 K/uL (1.4-6.5); Neutrophils % (auto) 59.7 %; Platelet Count 151 K/uL (130-400); RDW Coefficient of Variation 15.4 % (11.5-14.5); RDW Standard Deviation 51.4 fL (36.4-46.3); Red Blood Count 3.73 M/uL (4.2-5.4); White Blood Count 6.55 K/uL (4.8-10.8)
[2019-10-24 07:05] LABS: BUN Creatinine Ratio 22.8 (10-20); Calcium 8.8 mg/dl (8.5-10.1); Creatinine Clr Calc Pharmacy 44.4 ml/min; Est GFR (African American) 87.5; Est GFR (Non-African American) 75.5
[2019-10-24] MEDS: CARBOHYDRATES FOR HYPOGLYCEMIA PO PRN (07:37)
[2019-10-24] MEDS: CALCIUM 600MG + VIT D 400 IU TAB PO SCH (07:43)
[2019-10-24] MEDS: ACETAMINOPHEN 500 MG TAB PO SCH (07:44)
[2019-10-24] MEDS: CHOLECALCIFEROL 1,000 UNITS 25 MCG TAB PO SCH (07:44)
[2019-10-24] MEDS: METOPROLOL SUCC 50MG EXT REL TAB PO SCH (07:46)
[2019-10-24] MEDS: FERROUS SULFATE 325 MG TAB PO SCH (07:46)
[2019-10-24] MEDS: FAMOTIDINE 20 MG TAB PO SCH (07:48)
[2019-10-24] MEDS: DAPTOmycin 225 MG in SYRINGE 0 ML IV SCH (09:06)
[2019-10-24] MEDS: INSULIN ASPART 100 UNITS/ML 3 ML PEN SC SCH ×2 (09:13→12:43)
[2019-10-24] MEDS ORDERED: SODIUM CHLORIDE 0.9% 1000ML 1,000 ML IV SCH (10:45)
[2019-10-24 11:13] VITALS: TEMP 97.7
--- NOTE | 2019-10-24 15:18 | Discharge Summary ---
Date of Service October 24, 2019 Admission HPI Per Admitting Provider Ms. Berg presents from [facility] for weakness and confusion. She is unable to give history due to confusion. Family reports that she has baseline dementia and has had increasing confusion recently. She has had a general down trend in her health over the last month. She has chronic UTIs and lower extremity wounds. Patient denies any discomfort but thinks she is at the hospital because she had a baby. Unable to get a full review of systems. Pmhx: DMII, dementia A fib on Xeralto, chronic venous stasis ulcers, PAD, anemia, Principal Diagnosis Sepsis, Leg wounds with cellulitis Discharge Exam Constitutional average body habitus; no acute distress Eyes + anicteric sclerae Neck trachea midline, no thyromegaly Respiratory normal respiratory effort, lungs clear to auscultation Cardiovascular Rate/Rhythm: regular rate and + irregularly irregular Extremities: + edema (1+ pitting edema bilat legs) Chest (Breasts) Chest: normal inspection of chest Gastrointestinal (Abdomen) normal bowel sounds, soft, nontender, no hepatosplenomegaly Musculoskeletal Extremities: no cyanosis and no clubbing Skin + ulcer (left ant stern 2x2cm shallow ulcer,right leg dressed and not removed) Neurologic moves all extremities and awake; no focal motor deficits Psychiatric Orientation: alert, oriented to person, oriented to place and cooperative Eye Contact: good eye contact Lymphatic no lymphedema Discharge Data Allergies Allergy/AdvReac Type Severity Reaction Status Date / Time erythromycin base Allergy Unknown Unverified 10/19/19 16:14 Consultations 10/19/19 17:42 ED Decision to Admit Stat 10/19/19 21:19 Consult Case Management - Discharge Planning Routine 10/20/19 14:08 Consult Palliative Care Routine 10/21/19 16:57 Consult Cardiology Routine Ordered Studies 10/19/19 15:24 CT head/brain wo con Stat 10/20/19 01:10 CT head/brain wo con Urgent CXR x 2 Hip/pelvis xray Thoracic spine xray Hospital Course (1) Sepsis: Suspected Sepsis, POA Secondary to infected leg wounds and cellulitis treating as below-now resolved On admission with tachypnea, with persistent hypothermia, hypotensive which is now all resolved Recent wound cultures with Pseudomonas and MRSA in leg wounds, recent UTI with Enterococcus but urine culture here now with lactobacillus Will continue treatment for wound infection as below Blood cultures no growth to date Overall much improved (2) Metabolic encephalopathy: Metabolic/Septic encephalopathy Secondary to wound infection and likely some contribution from the severe hypoglycemia she had earlier in the admission Significantly improved now-is now out of bed, eating meals, conversing (3) Weakness: Secondary to possible sepsis as above, but also has been progressively declining over the last month or so both physically and mentally. PT/OT was finally able to work with her -she ambulated but very minimally PT/OT recommending assisted facility (4) Open leg wound: With open wounds worsening on bilat legs Here with suspected sepsis, POA, now much improved as above Previous wound cultures with MRSA and Pseudomonas, was not responding to doxy as an outpatient Remains with significant pain upon touching her lower extremities -received many days of IV daptomycin and cefepime--> convert to Bactrim and Cipro upon discharge to finish out a 2 week course -follow Blood cultures-no growth to date -consult Vascular Cardiology for PAD appreciated-has severe PAD but no intervention recommended due to dementia and comorbidities with family desire for no escalation in care-discussed with granddaughter at the bedside -Appreciate palliative care consultation-had one dose of Roxanol here but then pain controlled with tylenol only after that (5) Peripheral arterial disease: MOd-severe calcific sclerosis bilat, multiple areas of stenoses and occlusion bilat LEs -consult Vascular Cardiology to see if needs intervention given non-healing wounds-appreciated, no intervention as above -Is on Xarelto -not on statin and likely not much benefit at this point (6) CHF (congestive heart failure): Acute on chronic HFpEF in setting of possible sepsis With evidence of volume overload on CXR, BNP 3276, in setting of resp distress earlier in her stay Was dcd from fluids, not given lasix due to low BPs Now stable, euvolemic ECHO with preserved EF, elevated RSVP, severe TR (7) Atrial fibrillation: Chronic -have decreased metoprolol to 100mg due to hypotension and rates remain controlled -continue Xarelto, renally dosed (8) Hypertension: Metoprolol dose decreased as above for hypotension Blood pressures are now in the normal range -can restart amlodipine and lisinopril -which were held upon admission for low BPs (9) Diabetes mellitus, type II: With severe hypoglycemia here which is finally improving after loosening insulin regimen Her p.o. intake is now improving on the evening of 10/22 Now with hyperglycemia in the 300s again as she is eating more Pharmacy is managing and after adding back some basal insulin , she again had hypoglycemia -continue to closely monitor after discharge with cautious use of insulin (10) Hyponatremia: Na 130 on admission, improved on admission after hydration but slightly worse today at 129 secondary to poor p.o. intake which is starting to improve No IV fluids to be given as this resulted in significant respiratory distress -Follow BMP as an outpt (11) Thrombocytopenia: Platelets mildly low in the 1 teens but now improved to 150 Could be secondary to his previous sepsis -Follow CBC as an outpt (12) DVT prophylaxis: Jayda Dispo-stable for dc to SNF Have consulted palliative care for goals of care. Patient has been generally declining over the last month and has progressive dementia. Family would not like to escalate care further, but wants to continue current treatment Given her significant improvement in the last 24-48 hours, family is [facility] will [facility] her back. Plan now for SNF for rehab and then [facility] DNR/DNI Total Time Total Time Spent Total Time Spent (In Minutes): 35 min Total Time Includes: Examination of the Patient, Discharge Planning and Medication Reconciliation Discharge Plan Discharge Items Patient Disposition: Transfer Long Term Fac Reason For Visit: WEAKNESS Discharge Diagnosis: Sepsis, infected leg wounds,cellulitis lower extremities Condition on Discharge: Fair Activity: As commented below Bathing: No limitations Exercise/Sports: Gradually increase as tolerated Exercise Comment: with PT/OT Weightbearing: Full weightbearing Weightbearing Comment: with assistance Non-emergency contact: Primary Care Provider Call non-emergency contact if: you have any medication questions, your symptoms worsen, your pain is not controlled, your pain is worsening, your pain is unusual for you, your pain is concerning for you, you have a fever, your temperature is above 101, your wound has increased redness, your wound has increased drainage and your wound pain has increased Follow-up/Referrals: [facility] [Primary Care Provider] - Diet: Carb Consistent or DM2 and Low Sodium (2gm) Addtl Attending Provider Instructions: Continue antibiotics for leg wounds growing Pseudomonas and MRSA. This will be with Cipro and doxycycline, both bid x 7 more days. Please follow wound care instructions as per manager market. Check BMP in 1 day as she has had hyponatremia from mild dehydration (from poor po intake). Sodium was 127 on day of discharge. She is asymptomatic with this and actually looks the best she has yet all during her hospital stay. Glucose remains quite labile and she has frequent episodes of hypoglycemia. Recommend very loose insulin regimen as on medication list. This is a signif icnat reduction from her previous home insulin regimen. She is quite debilitated and needs aggressive PT/OT for rehab. Pending Studies at Discharge: No Stand-Alone Forms: My [facility] Skilled Items Patient informed of condition?: Yes DNR: Yes Discharge Level of Care: Skilled Communicable Disease: No Discharge Prognosis: Improving Lines: None Urinary Catheter: No Medications and DC Order Prescriptions: New metoprolol succinate 100 mg tablet extended release 24 hr 100 mg PO DAILY Qty: 30 RF: 0 Continued ciprofloxacin HCl 500 mg tablet 500 mg PO q12h Qty: 28 RF: 1 levothyroxine 125 mcg tablet 137 mcg PO QAM RF: 0 amlodipine 5 mg Tablet 5 mg PO QAM RF: 0 Glucagon Emergency Kit (human) 1 mg Recon Soln 1 ml IM UD PRN (Reason: Hypoglycemia) RF: 0 sodium chloride [Saline Mist] 0.65 % Aerosol,[place] 2 spray INTRANASAL DAILY PRN (Reason: Other) RF: 0 acetaminophen 500 mg Tablet 1,000 mg PO BID RF: 0 cholecalciferol (vitamin D3) [Vitamin D3] 2,000 unit Tablet 2,000 unit PO QAM RF: 0 Caltrate 600 plus D 600 mg (1,500 mg)-800 unit Tablet,Chewable 1 tab PO BID RF: 0 ferrous sulfate 325 mg (65 mg iron) Tablet 325 mg PO BID RF: 0 famotidine 20 mg tablet 20 mg PO QAM RF: 0 lisinopril 2.5 mg tablet 2.5 mg PO QAM RF: 0 Xarelto 20 mg tablet 20 mg PO DAILY@1600 RF: 0 Changed insulin aspart U-100 [Novolog Flexpen U-100 Insulin] 100 unit/mL (3 mL) insulin pen 1 units subcut ACHS Qty: 15 RF: 0 Lantus Solostar U-100 Insulin 100 unit/mL (3 mL) Insulin Pen 5 unit SUBCUT QAM Qty: 0 RF: 0 Discontinued nitrofurantoin monohyd/m-cryst [Macrobid] 100 mg capsule 100 mg PO BID RF: 0 metoprolol succinate 200 mg Tablet Extended Release 24 Hr 200 mg PO QAM RF: 0 Novolin N NPH U-100 Insulin 100 unit/mL suspension 16 unit subcut QAM RF: 0 Discharge Orders: Discharge Order (Routine); Ordered 10/24/19 Ordered By: Sandy Bates Admission Data Admit Date/Time: 10/19/19 19:24 Attending Provider: Sandy Bates Admit Provider: Mitch Benavides Primary Care Provider: [facility] Other Providers: Meagan Arambula Christophe R. Other Interventions: Discharge Summary Assessment (RN) Last Done: 10/24/19 15:34 DC Date/Time DO NOT enter until pt leaves facility: 10/24/19 16:05 Coding Level of Care Code D/C Day Management >30 mins Diagnoses Sepsis A41.9 Metabolic encephalopathy G93.41 Weakness R53.1 Open leg wound S81.809A Peripheral arterial disease I73.9 CHF (congestive heart failure) I50.43 Heart failure chronicity: acute on chronic Heart failure type: combined systolic and diastolic Atrial fibrillation I48.2 Atrial fibrillation type: chronic Hypertension I10 Hypertension type: essential hypertension Diabetes mellitus, type II E11.9 Hyponatremia E87.1 Thrombocytopenia D69.6 DVT prophylaxis Z29.9
[2019-10-24 15:19] VITALS: O2SAT 96
--- NOTE | 2019-10-24 15:33 | Pharmacy Report ---
Pharmacy Glycemic Short Note 2 - Date of Service October 24, 2019 - Glycemic Short BSG Results (Last 24 hours): 10/23/19 10/23/19 10/23/19 16:40 16:41 20:10 Glucose POC Glucose 389 H* 385 H* 428 H* 10/23/19 10/23/19 10/24/19 20:11 20:12 02:03 Glucose POC Glucose 337 H* 374 H* 79 10/24/19 10/24/19 10/24/19 06:07 07:32 07:33 Glucose 59 L POC Glucose 63 L* 58 L* 10/24/19 10/24/19 07:53 11:14 Glucose POC Glucose 73 167 H OUTPATIENT ANTIDIABETIC REGIMEN: * Lantus 25 units SQ BID * NPH 16 units SQ qAM (hold if BSG is < 90) * Novolog per SS at 07 and 1600 (0-12 units) * A1c = 8.8% on 09/12/18 (may be unreliable d/t anemia) ASSESSMENT: 10/24 * Patient's BSG remained elevated yesterday evening- parameters were tightened to CF/CR 25/10 with an additional 5 units of lantus given to the 5 units given at dinner time * BSG did drop down to 63 this morning on fasting, will reduce lantus, would prefer to dose this in the AM, could consider skipping HS lantus this evening and dosing in the AM * Slightly loosened CF/CR to 30/12 as patient can drop quickly. BSG at lunch 167 today. 10/23 * BSGs elevated yesterday evening, however fasting down to 137 with overnight checks * Patient has not received any basal insulin x 48 hrs- will give conservative 5 units of lantus at dinner if BSGs remain >300 * Lunch BSG 303, did tighten carb ratio to 15, will continue to monitor if needs loosened again * Per discussion with provider okay with BSGs in 200s. 10/22 * Barbara's BSGs have improved significantly; however, she has only required 2 units of insulin in the past 24 hours. One of these units causing hypoglycemia yesterday (195 mg/dL -> 67 mg/dL). * I did attempt to call Rickie Napoles for insulin doses/recent BSGs yesterday but did not hear back from them * Discussed case at [facility] today. Plan of care continues to be no escalation in care. * Goal for glycemic management is to prevent extreme hypo/hyperglycemia 10/21 * Barbara has had sustained hypoglycemia since yesterday afternoon * She received 30 units of basal insulin and 3 units of bolus insulin, last insulin administration ~noon yesterday * BSGs finally up above 180 mg/dL at lunch; however, I would have expected higher BSGs after no insulin coverage given and patient ate 100% of her breakfast. Nurse then reported that patient did not eat her lunch. * At [facility] today, discussed that patient will not be on comfort care but will not be escalating therapy. Will plan to be conservative with insulin dosing, in order to prevent sustained hypoglycemia in the setting of changing PO intake. 10/20 * 89 yr old T2DM female admitted with weakness and lower extremity wounds. * Pt is known to glycemic service from previous admissions. We have had challenges with her glycemic regimen in the past. She tends to be very sensitive to carbohydrate intake and requires a tighter carb ratio with breakfast. She is prone to severe hyperglycemia at lunchtime followed by hypoglycemia after large doses of correction. * I will continue home use of both Lantus and NPH with NPH given in the morning to aid in BSG spike around lunch/dinner. * I will utilize a looser CF and CR compared to previous admissions since NPH is on board. PLAN FOR INPATIENT GLYCEMIC CONTROL: * Basal insulin * Hold tonight restart in AM with 5 units * Bolus insulin * NovoLog per scale ACHS or Q6hrs while NPO * Goal Range: Low 120 mg/dL - High 200 mg/dL * Correction Factor: 30 mg/dL/unit * Nutritional / Prandial insulin per carb ratio of 1 unit per 12 grams CHO consumed PLAN FOR DISCHARGE: * Recommend continued reduced dosing with lantus 5 units qAM and novolog parameters carb ratio of 12, correction factor 30 at [facility]. This is can be loosened/tightened as needed- goal is to reduce hypoglycemic/extreme hyperglycemic events.
[2019-10-24 15:37] VITALS: BP 128/75; PULSE 75
[2019-10-24 15:38] LABS: BUN Creatinine Ratio 21.6 (10-20); Calcium 8.4 mg/dl (8.5-10.1); Creatinine Clr Calc Pharmacy 39.4 ml/min; Est GFR (African American) 75.8; Est GFR (Non-African American) 65.4
== END 2019-10-24 16:05 | DRG 871 ==
LOC: ED 15:10 → 2W 19:24 → SUATTDRO 19:24 → 2W 21:09